=== PATIENT | male | born 1950 | race Caucasian/White ===

== ENCOUNTER → 2017-01-08 | Outpatient (CLI) | payer MEDICARE ==
[~2017-01-08] MED LIST: /ESCI20TA OR; /PANT40TA PO; AMLO10TA2 PO; AMLO5TAB2 PO; ASPI1TAB PO; ASPI81TA45 OR; ATOR1TAB18 PO; BUME1TAB OR; CALC0.5C PO; CALC0.5C6 PO; CALC600T10 OR; CITA40TA4 PO; CLON-412 PO; DULO20CA OR; FEBU40TA PO; FERR325T PO; FERR325T3 PO; HYDR25TA PO; INSULANT SC; INSUR SC; ISOVUE-370 76% 100ML VIAL (Q9967) As Ordered ONE; Insulin Pump SQ; LIDO5DIS36 TD; LISI10TA4 OR; MIRT45TA OR; MIRT45TA PO; NUCY100T11 PO; PANT40TA2 PO; PLAV75TA2 OR; PLAV75TA38 PO; POTA10CA PO; SPIR25TA2 PO; TORS20TA2 PO; VICO5TAB PO; VITAMIN D50000 UNT OR; [UNRECOGNIZED DRUG - OTHER] PO; iron PO; lantus SQ
--- NOTE | 2017-01-08 18:38 | REP ---
CT ANGIOGRAM ABDOMEN AND PELVIS, AND BILATERAL LOWER EXTREMITIES: CT angiogram performed of the abdomen and pelvis and bilateral lower extremities following the intravenous administration of 100 mL of Isovue-370. Sagittal, coronal and MIP reconstruction images are performed. Visualized lung bases demonstrate interstitial fibrotic changes. Liver, spleen, adrenals and pancreas appear unremarkable. There appears to be atrophy of the left kidney, particularly in the upper pole with focal cortical thinning. There is no adenopathy. There is no free air or free fluid. No bowel wall thickening is seen. There is sigmoid diverticulosis. The appendix is normal. There is a small hiatal hernia. The abdominal aorta demonstrates moderate atherosclerotic plaquing with mild to moderate diffuse narrowing in the infrarenal portion. There is mild narrowing of the origin of the celiac artery as well as of the superior and inferior mesenteric arteries. Renal arteries demonstrate mild narrowing without significant stenosis. Right common iliac artery demonstrates moderate diffuse plaquing and narrowing. There is a bypass graft connecting with the distal right common iliac artery. The right external iliac artery is occluded. There is moderate to severe narrowing of the proximal right internal iliac artery. The bypass graft is widely patent up to the level of the common femoral artery, but there appears to be moderate to severe focal stenosis at that location as seen on axial images #132. No flow is seen in the [place] right superficial femoral artery. The graft is widely patent as it courses through the thigh with mild narrowing at its distal end, at the anastomosis with the right popliteal artery. The [place] right popliteal artery demonstrates moderate diffuse narrowing. The trifurcation vessels are patent. There is relatively moderate narrowing of the proximal peroneal and posterior tibial arteries. All three of the calf arteries taper as they course distally in the calf, but all three do appear to enter the right foot. On the left, there is moderate diffuse narrowing of the common iliac artery. There is the severe stenosis of the left internal iliac artery. The left external iliac artery demonstrates circumferential calcific plaque with diffuse severe narrowing. The left common femoral artery demonstrates moderately severe narrowing. That vessel demonstrates an anastomosis with a bypass graft which is widely patent coursing through the left thigh soft tissues. The [place] left superficial femoral artery is severely stenotic proximally and becomes occluded in its proximal aspect. Bypass graft demonstrates an anastomosis with the [place] popliteal artery with moderately severe stenosis at the anastomosis. The left popliteal artery demonstrates moderately severe diffuse narrowing. Trifurcation vessels are patent. There is moderate to severe stenosis of the proximal left anterior tibial artery. That artery does appear to traverse into the foot. The posterior tibial and peroneal arteries taper as they course distally, but also appear to traverse into the left foot. IMPRESSION: Right lower extremity bypass graft originates at the right common iliac artery. There is focal moderate to severe stenosis within the graft in the right inguinal region, on axial image 132. There is mild narrowing at its distal end. Right popliteal artery demonstrates moderate diffuse narrowing. There is three vessel runoff into the right foot. Left external iliac artery demonstrates severe diffuse narrowing as does the visualized left common femoral artery. There is a bypass graft extending from the left common femoral artery to the left popliteal artery. Left popliteal artery demonstrates moderate to severe diffuse narrowing. There is three vessel runoff in the left foot. Signed by Juan Antonio Young MD 01/08/2017 07:53 P
== END ==
LOC: M RAD 07:39
PROVIDERS: ATTEND Surgery Vascular Surgery
DX: I70.512 Atherosclerosis of nonautologous biological bypass graft(s) of the extremities with intermittent claudication, left leg (principal); K44.9 Diaphragmatic hernia without obstruction or gangrene; Z95.5 Presence of coronary angioplasty implant and graft
CPT/HCPCS: 75635; Q9967

== ENCOUNTER 2017-06-15 11:13 | Emergency (ER) | payer MEDICARE ==
[~2017-06-15] VITALS: Ht 165.1 cm; Wt 72.2 kg
[~2017-06-15 11:13] MED LIST changes: -ATOR1TAB18 PO; +ATOR80TA59 PO; +FERR1TAB8 PO; -FERR325T PO; -ISOVUE-370 76% 100ML VIAL (Q9967) As Ordered ONE; -LIDO5DIS36 TD; +LIDO5DIS41 TD; +PLAV1TAB2 PO; -PLAV75TA38 PO
[2017-06-15] MEDS ORDERED: PLAV1TAB2 (11:34)
[2017-06-15] MEDS ORDERED: ONDANSETRON 4MG/2ML VIAL (J2405) IV ONE (12:30)
[2017-06-15] MEDS ORDERED: MORPHINE 2 MG/ML 1ML SYRINGE IV PRN (12:30)
[2017-06-15 13:03] LABS: BASO % 0.3 % (0.0-1.0); EOS % 0.2 % (0.0-3.0); IMMATURE GRANULOCYTE % 0.6 % (0-0); LYMPH # 0.7 10^3/uL (1.5-4.5); LYMPH % 5.5 % (24.0-44.0); MEAN CORPUSCULAR HEMOGLOBIN 35.2 pg (27.0-33.0); MEAN CORPUSCULAR HGB CONC 34.5 g/dl (32.0-36.5); MEAN CORPUSCULAR VOLUME 101.9 fl (80.0-96.0); MONO # 0.7 10^3/uL (0.0-0.8); MONO % 5.7 % (0.0-5.0); NEUTROPHILS # 10.7 10^3/uL (1.8-7.7); NEUTROPHILS % 87.7 % (36.0-66.0); PLATELET COUNT, AUTOMATED 342 10^3/uL (150-450); RED CELL DISTRIBUTION WIDTH 14.1 % (11.5-14.5); WHITE BLOOD COUNT 12.2 10^3/uL (4.0-10.0)
[2017-06-15 13:09] LABS: ADD MANUAL DIFFER NO; DIFF SLIDE NUMBER 147
[2017-06-15 13:23] LABS: INR 0.99
[2017-06-15 13:34] LABS: ALBUMIN 2.6 GM/DL (3.2-5.2); ALBUMIN/GLOBULIN RATIO 0.62 (1.00-1.93); ALKALINE PHOSPHATASE 73 U/L (45-117); ALT/SGPT 29 U/L (12-78); AMYLASE 59 U/L (25-115); ANION GAP 9 MEQ/L (8-16); AST/SGOT 23 U/L (15-37); BILIRUBIN,DIRECT < 0.1 MG/DL (0.0-0.2); BILIRUBIN,TOTAL 0.3 MG/DL (0.2-1.0); BLOOD UREA NITROGEN 36 MG/DL (7-18); CALCIUM LEVEL 7.1 MG/DL (8.8-10.2); CARBON DIOXIDE LEVEL 26 MEQ/L (21-32); CHLORIDE LEVEL 103 MEQ/L (98-107); GLOMERULAR FILTRATION RATE 14.4 (>49); GLUCOSE, FASTING 153 MG/DL (80-110); POTASSIUM SERUM 3.3 MEQ/L (3.5-5.1); SODIUM LEVEL 138 MEQ/L (136-145); TOTAL PROTEIN 6.8 GM/DL (6.4-8.2)
[2017-06-15 13:44] VITALS: BP 181/63
[2017-06-15] MEDS ORDERED: HYDR-3713 PO (13:58)
--- NOTE | 2017-06-16 11:39 | REP ---
REASON: Right flank pain. PRIORS: None. Prior CTA of the abdomen was reviewed. There are chronic changes in the lung bases status quo. Multiple calcifications are seen adjacent to multiple biliary radicles. Choledocholithiasis cannot be ruled out. There are no choleliths. Renovascular calcifications are seen bilaterally. Calcific atherosclerotic sclerotic change is seen in the abdominal aorta. Limited evaluation of the bowel loops and mesenteries show no gross abnormalities. Limited evaluation of the solid intra-abdominal organs show no gross abnormalities. Limited evaluation of the pancreas and adrenal glands show no gross abnormalities. No free fluid or free air is seen in the abdomen or pelvis. The osseous structures are within normal limits. IMPRESSION: Calcifications as described above. There is no obstructive uropathy. There are renovascular calcifications and there is calcific atherosclerotic change seen in the abdominal aorta. Other findings as described above. Signed by Russ Ashton DO 06/16/2017 09:44 A
--- NOTE | 2017-06-16 12:37 | ECGEPIP ---
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
== END 2017-06-15 14:06 | disposition home or self-care (01) ==
LOC: M ED 11:13
DX: K59.00 Constipation, unspecified (principal); E11.9 Type 2 diabetes mellitus without complications; I11.0 Hypertensive heart disease with heart failure; M54.9 Dorsalgia, unspecified; I50.9 Heart failure, unspecified; E78.00 Pure hypercholesterolemia, unspecified; G47.30 Sleep apnea, unspecified; E05.90 Thyrotoxicosis, unspecified without thyrotoxic crisis or storm; F41.9 Anxiety disorder, unspecified; F33.9 Major depressive disorder, recurrent, unspecified; Z79.899 Other long term (current) drug therapy; Z79.82 Long term (current) use of aspirin; Z79.4 Long term (current) use of insulin; Z88.1 Allergy status to other antibiotic agents; Z88.2 Allergy status to sulfonamides; Z88.8 Allergy status to other drugs, medicaments and biological substances; Z87.891 Personal history of nicotine dependence
CPT/HCPCS: 36415; 74176; 80048; 80076; 81001; 82150; 82550; 82553; 83605; 83690; 84484; 85025; 85610; 85730; 93005; 96374; 96375; 99284; J2405

== ENCOUNTER → 2017-07-18 | Outpatient (CLI) | payer MEDICARE ==
[~2017-07-18] MED LIST changes: +HYDR-3713 PO; +PLAV1TAB2
--- NOTE | 2017-07-18 10:34 | REP ---
LUMBAR SPINE, FIVE VIEWS: HISTORY: Spinal stenosis. There is no acute fracture or subluxation. There are old compression fractures of the T11 through L1 vertebral bodies with minimal height loss. The intervertebral discs are decreased in height consistent with disc degeneration. Osteophytes are present throughout the lumbar spine. The facet joints are normal in appearance. IMPRESSION: Degenerative change as described above. Signed by Amadou Mcmanus MD 07/18/2017 10:35 A
== END ==
LOC: M SMT 09:25
PROVIDERS: ATTEND Nurse Practitioner Adult Health
DX: M48.061 Spinal stenosis, lumbar region without neurogenic claudication (principal); M51.35 Other intervertebral disc degeneration, thoracolumbar region; M25.78 Osteophyte, vertebrae

== ENCOUNTER 2017-09-14 15:29 | Outpatient (CLI) | payer MEDICARE ==
[2017-09-14] MEDS: cloNIDine 0.1 MG TAB PO (18:52)
[2017-09-14] MEDS: **hydrALAZINE HCL** 25 MG TAB PO (18:52)
[2017-09-14 20:34] LABS: IMMEDIATE SPIN CROSSMATCH 1 2
== END 2017-09-15 01:00 | disposition home or self-care (01) ==
LOC: M OPCLI4PV 09-15 01:00 → M MSPAV 15:48
DX: D62 Acute posthemorrhagic anemia (principal)
CPT/HCPCS: 36430

== ENCOUNTER 2017-10-26 19:13 | Inpatient (IN) | payer MEDICARE ==
[2017-10-26] MEDS: **hydrALAZINE HCL** 25 MG TAB PO (21:00)
[2017-10-26 22:56] LABS: INFLUENZA A AMPLIFICATION NEGATIVE (NEGATIVE); INFLUENZA B AMPLIFICATION NEGATIVE (NEGATIVE)
[2017-10-27 00:20] LABS: BASO % 0.7 % (0.0-1.0); EOS # 0.1 10^3/uL (0.0-0.50); EOS % 0.9 % (0.0-3.0); HEMATOCRIT 35.2 % (42.0-52.0); HEMOGLOBIN 12.1 g/dl (14.0-18.0); IMMATURE GRANULOCYTE % 0.5 % (0-3.0); LYMPH # 0.8 10^3/uL (1.5-4.5); LYMPH % 12.8 % (24.0-44.0); MEAN CORPUSCULAR HGB CONC 34.4 g/dl (32.0-36.5); MEAN CORPUSCULAR VOLUME 98.9 fl (80.0-96.0); MONO # 0.7 10^3/uL (0.0-0.8); MONO % 12.5 % (0.0-5.0); NEUTROPHILS # 4.3 10^3/uL (1.8-7.7); NEUTROPHILS % 72.6 % (36.0-66.0); PLATELET COUNT, AUTOMATED 290 10^3/uL (150-450); RED BLOOD COUNT 3.56 10^6/uL (4.30-6.10); RED CELL DISTRIBUTION WIDTH 16.8 % (11.5-14.5); WHITE BLOOD COUNT 5.9 10^3/uL (4.0-10.0)
[2017-10-27] MEDS: IMIPENEM/CILASTATIN 500 MG in D5W MINI-BAG PLUS 100 ML IV (00:37)
[2017-10-27] MEDS: ACETAMINOPHEN 325 MG TAB PO (01:04)
[2017-10-27 01:12] LABS: LACTIC ACID SEPSIS PROTOCOL 1.4 MMOL/L (0.4-2.0)
[2017-10-27 01:24] LABS: ANION GAP 16 MEQ/L (8-16); BLOOD UREA NITROGEN 40 MG/DL (7-18); CALCIUM LEVEL 8.2 MG/DL (8.8-10.2); CARBON DIOXIDE LEVEL 26 MEQ/L (21-32); CHLORIDE LEVEL 102 MEQ/L (98-107); CREATININE FOR GFR 4.58 MG/DL (0.70-1.30); GLOMERULAR FILTRATION RATE 13.7 (>49); GLUCOSE, FASTING 230 MG/DL (70-100); SODIUM LEVEL 144 MEQ/L (136-145)
[2017-10-27 01:56] LABS: RSV AMPLIFICATION POSITIVE (NEGATIVE)
[2017-10-27] MEDS: VANCOMYCIN HCL 1,000 MG, VIAL MATE ADAPTER 1 EACH in D5W 250 ML IV (02:28)
[2017-10-27] MEDS ORDERED: VANCOMYCIN HCL 1,000 MG, VIAL MATE ADAPTER 1 EACH in D5W 250 ML IV (02:45)
[2017-10-27] MEDS: MIRTAZAPINE 15 MG TAB PO ×2 (03:49→22:17)
[2017-10-27] MEDS: cloNIDine 0.1 MG TAB PO ×3 (03:50→22:16)
[2017-10-27] MEDS ORDERED: GLUCAGON FOR INJ 1 MG VIAL (J1610) SC (05:30)
[2017-10-27] MEDS ORDERED: GLUCOSE 4 GM CHEW TABLET PO (05:30)
[2017-10-27] MEDS ORDERED: DEXTROSE 50% 50 ML SYRINGE IV (05:30)
[2017-10-27 06:52] LABS: HEMATOCRIT 33.1 % (42.0-52.0); HEMOGLOBIN 11.4 g/dl (14.0-18.0); MEAN CORPUSCULAR HEMOGLOBIN 33.7 pg (27.0-33.0); MEAN CORPUSCULAR HGB CONC 34.4 g/dl (32.0-36.5); MEAN CORPUSCULAR VOLUME 97.9 fl (80.0-96.0); PLATELET COUNT, AUTOMATED 257 10^3/uL (150-450); RED BLOOD COUNT 3.38 10^6/uL (4.30-6.10); RED CELL DISTRIBUTION WIDTH 16.8 % (11.5-14.5); WHITE BLOOD COUNT 5.3 10^3/uL (4.0-10.0)
[2017-10-27 07:17] LABS: ALBUMIN 2.9 GM/DL (3.2-5.2); ANION GAP 13 MEQ/L (8-16); BLOOD UREA NITROGEN 47 MG/DL (7-18); CALCIUM LEVEL 7.8 MG/DL (8.8-10.2); CARBON DIOXIDE LEVEL 26 MEQ/L (21-32); CHLORIDE LEVEL 96 MEQ/L (98-107); GLOMERULAR FILTRATION RATE 11.9 (>49); GLUCOSE, FASTING 308 MG/DL (70-100); PHOSPHORUS LEVEL 4.6 MG/DL (2.5-4.9); POTASSIUM SERUM 3.8 MEQ/L (3.5-5.1); SODIUM LEVEL 135 MEQ/L (136-145); VANCOMYCIN RANDOM 20.4 UG/ML
[2017-10-27] MEDS: ALBUTEROL SULFATE 2.5 MG/0.5 ML INH NEB SOLN NEB ×3 (08:00→20:18)
[2017-10-27] MEDS ORDERED: LEVEMIR (INSULIN DETEMIR) 1 UNITS/0.01ML SC (09:00)
[2017-10-27] MEDS: SPIRONOLACTONE 25 MG TAB PO ×2 (09:56→17:51)
[2017-10-27] MEDS: PANTOPRAZOLE 40MG TAB (PROTONIX) PO (09:57)
[2017-10-27] MEDS: ASPIRIN 81 MG ENTERIC TAB PO (09:57)
[2017-10-27] MEDS: **hydrALAZINE HCL** 25 MG TAB PO ×3 (09:57→22:16)
[2017-10-27] MEDS: HEPARIN SOD (PORCINE) 5000 UNITS/ML VIAL SC ×3 (09:57→22:19)
[2017-10-27] MEDS: CitaloPRAM (CeleXA) 20 MG TAB PO (09:57)
[2017-10-27] MEDS: CLOPIDOGREL 75 MG TAB PO (09:57)
[2017-10-27 12:12] LABS: BEDSIDE GLUCOSE 476 MG/DL (80-115)
[2017-10-27] MEDS: ATORVASTATIN 20 MG TAB PO (13:46)
[2017-10-27] MEDS ORDERED: IMIPENEM/CILASTATIN 500 MG in D5W MINI-BAG PLUS 100 ML IV (14:00)
[2017-10-27] MEDS ORDERED: VANCOMYCIN HCL 15 MG in IV FLUID PLACE HOLDER 1 EA IV (14:00)
[2017-10-27 16:04] LABS: BEDSIDE GLUCOSE 594 MG/DL (80-115)
[2017-10-27] MEDS ORDERED: HumaLOG INSULIN (NovoLOG) PER UNIT SC ×2 (17:30→21:00)
[2017-10-27] MEDS: BUDESONIDE 0.5 MG/2 ML INHALATION SUSPENSION INH (20:18)
[2017-10-27 21:16] LABS: BEDSIDE GLUCOSE 484 MG/DL (80-115)
[2017-10-27] MEDS: ACETAMINOPHEN TAB 650MG DOSE (2X325MG) PO (23:59)
[2017-10-27] MEDS: cloNIDine 0.2 MG TAB PO (23:59)
[2017-10-28] MEDS: ALBUTEROL SULFATE 2.5 MG/0.5 ML INH NEB SOLN NEB ×4 (00:19→20:36)
[2017-10-28] MEDS: HEPARIN SOD (PORCINE) 5000 UNITS/ML VIAL SC ×3 (06:24→21:18)
[2017-10-28 06:35] LABS: HEMATOCRIT 29.6 % (42.0-52.0); HEMOGLOBIN 10.4 g/dl (14.0-18.0); MEAN CORPUSCULAR HEMOGLOBIN 34.2 pg (27.0-33.0); MEAN CORPUSCULAR HGB CONC 35.1 g/dl (32.0-36.5); MEAN CORPUSCULAR VOLUME 97.4 fl (80.0-96.0); PLATELET COUNT, AUTOMATED 253 10^3/uL (150-450); RED BLOOD COUNT 3.04 10^6/uL (4.30-6.10); RED CELL DISTRIBUTION WIDTH 16.5 % (11.5-14.5); WHITE BLOOD COUNT 6.2 10^3/uL (4.0-10.0)
[2017-10-28 07:05] LABS: ALBUMIN 2.8 GM/DL (3.2-5.2); ANION GAP 14 MEQ/L (8-16); BLOOD UREA NITROGEN 72 MG/DL (7-18); CALCIUM LEVEL 7.9 MG/DL (8.8-10.2); CARBON DIOXIDE LEVEL 24 MEQ/L (21-32); CHLORIDE LEVEL 97 MEQ/L (98-107); CREATININE FOR GFR 6.71 MG/DL (0.70-1.30); GLOMERULAR FILTRATION RATE 8.8 (>49); GLUCOSE, FASTING 160 MG/DL (70-100); PHOSPHORUS LEVEL 5.2 MG/DL (2.5-4.9); POTASSIUM SERUM 3.5 MEQ/L (3.5-5.1); SODIUM LEVEL 135 MEQ/L (136-145)
[2017-10-28] MEDS: BUDESONIDE 0.5 MG/2 ML INHALATION SUSPENSION INH ×2 (07:48→20:36)
[2017-10-28 09:10] LABS: BEDSIDE GLUCOSE 134 MG/DL (80-115)
[2017-10-28] MEDS: SPIRONOLACTONE 25 MG TAB PO ×2 (10:14→17:23)
[2017-10-28] MEDS: PANTOPRAZOLE 40MG TAB (PROTONIX) PO (10:14)
[2017-10-28] MEDS: ASPIRIN 81 MG ENTERIC TAB PO (10:14)
[2017-10-28] MEDS: cloNIDine 0.1 MG TAB PO ×2 (10:14→21:17)
[2017-10-28] MEDS: CLOPIDOGREL 75 MG TAB PO (10:14)
[2017-10-28] MEDS: CitaloPRAM (CeleXA) 20 MG TAB PO (10:15)
[2017-10-28] MEDS: **hydrALAZINE HCL** 25 MG TAB PO ×3 (10:18→21:17)
[2017-10-28] MEDS: ATORVASTATIN 20 MG TAB PO (14:00)
[2017-10-28] MEDS: POTASSIUM CHLORIDE 10 MEQ SR TABLET PO (17:57)
[2017-10-28] MEDS: MIRTAZAPINE 15 MG TAB PO (21:17)
[2017-10-29] MEDS: ALBUTEROL SULFATE 2.5 MG/0.5 ML INH NEB SOLN NEB ×3 (01:58→14:05)
[2017-10-29] MEDS ORDERED: IPRATROPIUM 0.5MG/ALBUTEROL 2.5MG INH SOL UD 3ML (DUONEB)(J7620) NEB (03:30)
[2017-10-29 06:48] LABS: HEMATOCRIT 30.4 % (42.0-52.0); HEMOGLOBIN 10.6 g/dl (14.0-18.0); MEAN CORPUSCULAR HGB CONC 34.9 g/dl (32.0-36.5); MEAN CORPUSCULAR VOLUME 97.4 fl (80.0-96.0); PLATELET COUNT, AUTOMATED 276 10^3/uL (150-450); RED BLOOD COUNT 3.12 10^6/uL (4.30-6.10); RED CELL DISTRIBUTION WIDTH 16.6 % (11.5-14.5); WHITE BLOOD COUNT 8.3 10^3/uL (4.0-10.0)
[2017-10-29] MEDS: CitaloPRAM (CeleXA) 20 MG TAB PO (06:56)
[2017-10-29] MEDS: HEPARIN SOD (PORCINE) 5000 UNITS/ML VIAL SC ×3 (06:56→20:45)
[2017-10-29] MEDS: **hydrALAZINE HCL** 25 MG TAB PO ×3 (06:57→20:44)
[2017-10-29] MEDS: SPIRONOLACTONE 25 MG TAB PO ×2 (06:57→16:08)
[2017-10-29] MEDS: PANTOPRAZOLE 40MG TAB (PROTONIX) PO (06:57)
[2017-10-29] MEDS: ASPIRIN 81 MG ENTERIC TAB PO (06:57)
[2017-10-29] MEDS: cloNIDine 0.1 MG TAB PO ×2 (06:57→20:44)
[2017-10-29] MEDS: CLOPIDOGREL 75 MG TAB PO (06:58)
[2017-10-29 07:03] LABS: ANION GAP 13 MEQ/L (8-16); BLOOD UREA NITROGEN 87 MG/DL (7-18); CALCIUM LEVEL 7.9 MG/DL (8.8-10.2); CARBON DIOXIDE LEVEL 23 MEQ/L (21-32); CHLORIDE LEVEL 98 MEQ/L (98-107); GLOMERULAR FILTRATION RATE 7.7 (>49); GLUCOSE, FASTING 119 MG/DL (70-100); PHOSPHORUS LEVEL 4.4 MG/DL (2.5-4.9); POTASSIUM SERUM 4.3 MEQ/L (3.5-5.1); SODIUM LEVEL 134 MEQ/L (136-145)
[2017-10-29] MEDS: BUDESONIDE 0.5 MG/2 ML INHALATION SUSPENSION INH ×3 (08:00→19:46)
[2017-10-29 08:57] LABS: BEDSIDE GLUCOSE 238 MG/DL (80-115)
[2017-10-29 08:57] LABS: BEDSIDE GLUCOSE 352 MG/DL (80-115)
[2017-10-29 09:00] LABS: BEDSIDE GLUCOSE 282 MG/DL (80-115)
[2017-10-29] MEDS: HEPARIN 1,000 UNITS/ML 10ML VIAL (FOR RADIOLOGY& DIALYSIS ONLY) IV (11:00)
[2017-10-29] MEDS: LIDOCAINE 1% SDV 5 ML VIAL SQ (11:00)
[2017-10-29] MEDS: ATORVASTATIN 20 MG TAB PO (13:24)
[2017-10-29] MEDS: ACETAMINOPHEN TAB 650MG DOSE (2X325MG) PO ×2 (16:09→20:43)
[2017-10-29 17:05] LABS: BEDSIDE GLUCOSE 101 MG/DL (80-115)
[2017-10-29] MEDS: IPRATROPIUM 0.5MG/ALBUTEROL 2.5MG INH SOL UD 3ML (DUONEB)(J7620) NEB ×2 (17:41→19:46)
[2017-10-29 17:47] LABS: BEDSIDE GLUCOSE 240 MG/DL (80-115)
[2017-10-29] MEDS: AZITHROMYCIN INJ 500 MG, VIAL MATE ADAPTER 1 EACH in D5W 250 ML IV (18:02)
[2017-10-29 18:21] LABS: ERYTHROCYTE SEDIMENTATION RATE 124 mm/hr (0-20)
[2017-10-29 18:23] LABS: CK-MB VALUE MASS 2.8 NG/ML (0.0-3.6); CPK CREATINE PHOSPHOKINASE 311 U/L (39-308); TROPONIN I 0.02 NG/ML (< 0.10)
[2017-10-29 18:24] LABS: LACTIC ACID SEPSIS PROTOCOL 1.6 MMOL/L (0.4-2.0)
[2017-10-29] MEDS: MIRTAZAPINE 15 MG TAB PO (20:44)
[2017-10-29 21:00] LABS: BEDSIDE GLUCOSE 301 MG/DL (80-115)
[2017-10-30] MEDS: IPRATROPIUM 0.5MG/ALBUTEROL 2.5MG INH SOL UD 3ML (DUONEB)(J7620) NEB ×7 (00:25→23:24)
[2017-10-30 04:45] LABS: HEMATOCRIT 30.2 % (42.0-52.0); HEMOGLOBIN 10.6 g/dl (14.0-18.0); MEAN CORPUSCULAR HEMOGLOBIN 34.6 pg (27.0-33.0); MEAN CORPUSCULAR HGB CONC 35.1 g/dl (32.0-36.5); MEAN CORPUSCULAR VOLUME 98.7 fl (80.0-96.0); PLATELET COUNT, AUTOMATED 250 10^3/uL (150-450); RED BLOOD COUNT 3.06 10^6/uL (4.30-6.10); RED CELL DISTRIBUTION WIDTH 17.2 % (11.5-14.5); WHITE BLOOD COUNT 12.1 10^3/uL (4.0-10.0)
[2017-10-30] MEDS: ACETAMINOPHEN TAB 650MG DOSE (2X325MG) PO (04:52)
[2017-10-30 05:13] LABS: ALBUMIN 2.7 GM/DL (3.2-5.2); ANION GAP 12 MEQ/L (8-16); BLOOD UREA NITROGEN 60 MG/DL (7-18); CALCIUM LEVEL 8.4 MG/DL (8.8-10.2); CARBON DIOXIDE LEVEL 23 MEQ/L (21-32); CHLORIDE LEVEL 94 MEQ/L (98-107); CREATININE FOR GFR 6.67 MG/DL (0.70-1.30); GLOMERULAR FILTRATION RATE 8.9 (>49); GLUCOSE, FASTING 302 MG/DL (70-100); POTASSIUM SERUM 4.5 MEQ/L (3.5-5.1); SODIUM LEVEL 129 MEQ/L (136-145)
[2017-10-30] MEDS: HEPARIN SOD (PORCINE) 5000 UNITS/ML VIAL SC ×3 (05:29→20:59)
[2017-10-30] MEDS: BUDESONIDE 0.5 MG/2 ML INHALATION SUSPENSION INH ×2 (08:21→20:44)
[2017-10-30 08:22] LABS: BEDSIDE GLUCOSE 334 MG/DL (80-115)
[2017-10-30] MEDS: SPIRONOLACTONE 25 MG TAB PO ×2 (09:44→17:26)
[2017-10-30] MEDS: CitaloPRAM (CeleXA) 20 MG TAB PO (09:44)
[2017-10-30] MEDS: CLOPIDOGREL 75 MG TAB PO (09:44)
[2017-10-30] MEDS: PANTOPRAZOLE 40MG TAB (PROTONIX) PO (09:44)
[2017-10-30] MEDS: ASPIRIN 81 MG ENTERIC TAB PO (09:44)
[2017-10-30] MEDS: cloNIDine 0.1 MG TAB PO ×2 (09:45→20:57)
[2017-10-30] MEDS: **hydrALAZINE HCL** 25 MG TAB PO ×3 (09:45→20:57)
[2017-10-30] MEDS: ATORVASTATIN 20 MG TAB PO (12:25)
[2017-10-30 12:36] LABS: BEDSIDE GLUCOSE 347 MG/DL (80-115)
[2017-10-30] MEDS: CEFTRIAXONE SOD 2 GM in APPROPRIATE DILUENT 1 EA IV (15:31)
[2017-10-30 16:49] LABS: BEDSIDE GLUCOSE 324 MG/DL (80-115)
[2017-10-30] MEDS: AZITHROMYCIN INJ 500 MG, VIAL MATE ADAPTER 1 EACH in D5W 250 ML IV (17:27)
[2017-10-30] MEDS: MIRTAZAPINE 15 MG TAB PO (20:56)
[2017-10-31 00:19] LABS: BEDSIDE GLUCOSE 403 MG/DL (80-115)
[2017-10-31] MEDS: IPRATROPIUM 0.5MG/ALBUTEROL 2.5MG INH SOL UD 3ML (DUONEB)(J7620) NEB ×5 (03:52→20:14)
[2017-10-31] MEDS: HEPARIN SOD (PORCINE) 5000 UNITS/ML VIAL SC ×3 (05:36→20:43)
[2017-10-31 05:56] LABS: HEMATOCRIT 26.9 % (42.0-52.0); HEMOGLOBIN 9.3 g/dl (14.0-18.0); MEAN CORPUSCULAR HEMOGLOBIN 34.2 pg (27.0-33.0); MEAN CORPUSCULAR HGB CONC 34.6 g/dl (32.0-36.5); MEAN CORPUSCULAR VOLUME 98.9 fl (80.0-96.0); PLATELET COUNT, AUTOMATED 279 10^3/uL (150-450); RED BLOOD COUNT 2.72 10^6/uL (4.30-6.10); RED CELL DISTRIBUTION WIDTH 16.9 % (11.5-14.5); WHITE BLOOD COUNT 9.4 10^3/uL (4.0-10.0)
[2017-10-31 06:08] LABS: ALBUMIN 2.5 GM/DL (3.2-5.2); ANION GAP 16 MEQ/L (8-16); BLOOD UREA NITROGEN 77 MG/DL (7-18); CALCIUM LEVEL 8.1 MG/DL (8.8-10.2); CARBON DIOXIDE LEVEL 21 MEQ/L (21-32); CHLORIDE LEVEL 92 MEQ/L (98-107); GLUCOSE, FASTING 261 MG/DL (70-100); PHOSPHORUS LEVEL 6.4 MG/DL (2.5-4.9); POTASSIUM SERUM 3.8 MEQ/L (3.5-5.1); SODIUM LEVEL 129 MEQ/L (136-145)
[2017-10-31 06:11] LABS: CREATININE FOR GFR 8.22 MG/DL (0.70-1.30)
[2017-10-31] MEDS ORDERED: VANCOMYCIN HCL 1,000 MG, VIAL MATE ADAPTER 1 EACH in D5W 250 ML IV (07:00)
[2017-10-31] MEDS: SPIRONOLACTONE 25 MG TAB PO ×2 (07:42→16:41)
[2017-10-31] MEDS: cloNIDine 0.1 MG TAB PO ×2 (07:42→20:41)
[2017-10-31] MEDS: PANTOPRAZOLE 40MG TAB (PROTONIX) PO (07:42)
[2017-10-31] MEDS: ASPIRIN 81 MG ENTERIC TAB PO (07:42)
[2017-10-31] MEDS: **hydrALAZINE HCL** 25 MG TAB PO ×3 (07:43→20:43)
[2017-10-31] MEDS: CLOPIDOGREL 75 MG TAB PO (07:43)
[2017-10-31] MEDS: CitaloPRAM (CeleXA) 20 MG TAB PO (07:43)
[2017-10-31] MEDS: BUDESONIDE 0.5 MG/2 ML INHALATION SUSPENSION INH ×2 (07:49→20:14)
[2017-10-31 08:30] LABS: ERYTHROCYTE SEDIMENTATION RATE 129 mm/hr (0-20)
[2017-10-31] MEDS: HEPARIN 1,000 UNITS/ML 10ML VIAL (FOR RADIOLOGY& DIALYSIS ONLY) IV (11:45)
[2017-10-31] MEDS: LIDOCAINE 1% SDV 5 ML VIAL SQ (11:45)
[2017-10-31] MEDS ORDERED: DARBEPOETIN 100 MCG/0.5 ML *DIALYSIS* SYRINGE (J0882) IV (12:15)
[2017-10-31 13:37] LABS: BEDSIDE GLUCOSE 120 MG/DL (80-115)
[2017-10-31] MEDS: CEFEPIME HCL 1 GM in D5W MINI-BAG PLUS 50 ML IV (14:00)
[2017-10-31] MEDS: ATORVASTATIN 20 MG TAB PO (14:01)
[2017-10-31] MEDS: CHECK TO SEE IF PATIENT IS RECEIVING DIALYSIS TODAY AND REFER TO THE VANCOMYCIN ORDER XX (16:41)
[2017-10-31] MEDS: VANCOMYCIN HCL 1,000 MG, VIAL MATE ADAPTER 1 EACH in D5W 250 ML IV (16:41)
[2017-10-31 16:59] LABS: BEDSIDE GLUCOSE 386 MG/DL (80-115)
[2017-10-31] MEDS: MIRTAZAPINE 15 MG TAB PO (20:41)
[2017-10-31 22:39] LABS: BEDSIDE GLUCOSE 328 MG/DL (80-115)
[2017-11-01] MEDS: IPRATROPIUM 0.5MG/ALBUTEROL 2.5MG INH SOL UD 3ML (DUONEB)(J7620) NEB ×8 (00:36→23:40)
[2017-11-01] MEDS: HEPARIN SOD (PORCINE) 5000 UNITS/ML VIAL SC ×3 (05:49→21:22)
[2017-11-01 07:08] LABS: BASO % 0.4 % (0.0-1.0); EOS # 0.1 10^3/uL (0.0-0.50); EOS % 1.7 % (0.0-3.0); HEMATOCRIT 26.1 % (42.0-52.0); HEMOGLOBIN 8.9 g/dl (14.0-18.0); IMMATURE GRANULOCYTE % 1.3 % (0-3.0); LYMPH # 0.6 10^3/uL (1.5-4.5); LYMPH % 8.3 % (24.0-44.0); MEAN CORPUSCULAR HGB CONC 34.1 g/dl (32.0-36.5); MEAN CORPUSCULAR VOLUME 99.6 fl (80.0-96.0); MONO # 0.9 10^3/uL (0.0-0.8); MONO % 12.4 % (0.0-5.0); NEUTROPHILS # 5.3 10^3/uL (1.8-7.7); NEUTROPHILS % 75.9 % (36.0-66.0); PLATELET COUNT, AUTOMATED 292 10^3/uL (150-450); RED BLOOD COUNT 2.62 10^6/uL (4.30-6.10); RED CELL DISTRIBUTION WIDTH 16.7 % (11.5-14.5)
[2017-11-01 07:25] LABS: ESTIMATED AVERAGE GLUCOSE 194 MG/DL (60-110); HEMOGLOBIN A1c 8.4 %
[2017-11-01] MEDS: BUDESONIDE 0.5 MG/2 ML INHALATION SUSPENSION INH ×2 (07:30→19:33)
[2017-11-01 07:34] LABS: ANION GAP 14 MEQ/L (8-16); BLOOD UREA NITROGEN 41 MG/DL (7-18); CALCIUM LEVEL 8.5 MG/DL (8.8-10.2); CARBON DIOXIDE LEVEL 24 MEQ/L (21-32); CHLORIDE LEVEL 96 MEQ/L (98-107); CREATININE FOR GFR 5.52 MG/DL (0.70-1.30); GLOMERULAR FILTRATION RATE 11.1 (>49); GLUCOSE, FASTING 94 MG/DL (70-100); POTASSIUM SERUM 3.6 MEQ/L (3.5-5.1); SODIUM LEVEL 134 MEQ/L (136-145)
[2017-11-01 07:59] LABS: ERYTHROCYTE SEDIMENTATION RATE 126 mm/hr (0-20)
[2017-11-01] MEDS: CitaloPRAM (CeleXA) 20 MG TAB PO (08:21)
[2017-11-01] MEDS: SPIRONOLACTONE 25 MG TAB PO ×2 (08:21→16:33)
[2017-11-01] MEDS: **hydrALAZINE HCL** 25 MG TAB PO ×3 (08:22→21:20)
[2017-11-01] MEDS: CLOPIDOGREL 75 MG TAB PO (08:22)
[2017-11-01] MEDS: ASPIRIN 81 MG ENTERIC TAB PO (08:22)
[2017-11-01] MEDS: PANTOPRAZOLE 40MG TAB (PROTONIX) PO (08:22)
[2017-11-01] MEDS: cloNIDine 0.1 MG TAB PO ×2 (08:23→21:21)
[2017-11-01] MEDS: CEFTRIAXONE SOD 2 GM in APPROPRIATE DILUENT 1 EA IV (09:00)
[2017-11-01 11:34] LABS: BEDSIDE GLUCOSE 167 MG/DL (80-115)
[2017-11-01] MEDS ORDERED: CEFEPIME HCL 0.5 GM in D5W MINI-BAG PLUS 50 ML IV (13:00)
[2017-11-01] MEDS: ATORVASTATIN 20 MG TAB PO (14:06)
[2017-11-01] MEDS: CHECK TO SEE IF PATIENT IS RECEIVING DIALYSIS TODAY AND REFER TO THE VANCOMYCIN ORDER XX (15:38)
[2017-11-01 16:50] LABS: BEDSIDE GLUCOSE 240 MG/DL (80-115)
[2017-11-01] MEDS: MIRTAZAPINE 15 MG TAB PO (21:20)
[2017-11-01] MEDS: ACETAMINOPHEN TAB 650MG DOSE (2X325MG) PO (21:22)
[2017-11-02 02:39] LABS: BEDSIDE GLUCOSE 301 MG/DL (80-115)
[2017-11-02] MEDS: IPRATROPIUM 0.5MG/ALBUTEROL 2.5MG INH SOL UD 3ML (DUONEB)(J7620) NEB ×5 (03:28→20:18)
[2017-11-02] MEDS: **hydrALAZINE** 50 MG TAB PO (04:34)
[2017-11-02] MEDS: HEPARIN SOD (PORCINE) 5000 UNITS/ML VIAL SC ×3 (04:35→21:03)
[2017-11-02 05:10] LABS: ANION GAP 19 MEQ/L (8-16); BLOOD UREA NITROGEN 63 MG/DL (7-18); CALCIUM LEVEL 8.1 MG/DL (8.8-10.2); CARBON DIOXIDE LEVEL 21 MEQ/L (21-32); CHLORIDE LEVEL 93 MEQ/L (98-107); CREATININE FOR GFR 7.39 MG/DL (0.70-1.30); GLOMERULAR FILTRATION RATE 7.9 (>49); GLUCOSE, FASTING 157 MG/DL (70-100); POTASSIUM SERUM 3.5 MEQ/L (3.5-5.1); SODIUM LEVEL 133 MEQ/L (136-145)
[2017-11-02 05:52] LABS: BASO % 0.7 % (0.0-1.0); EOS # 0.2 10^3/uL (0.0-0.50); EOS % 3.6 % (0.0-3.0); HEMATOCRIT 26.1 % (42.0-52.0); HEMOGLOBIN 8.9 g/dl (14.0-18.0); IMMATURE GRANULOCYTE % 3.1 % (0-3.0); LYMPH # 0.7 10^3/uL (1.5-4.5); LYMPH % 12.3 % (24.0-44.0); MEAN CORPUSCULAR HEMOGLOBIN 33.8 pg (27.0-33.0); MEAN CORPUSCULAR HGB CONC 34.1 g/dl (32.0-36.5); MEAN CORPUSCULAR VOLUME 99.2 fl (80.0-96.0); MONO # 0.7 10^3/uL (0.0-0.8); MONO % 12.3 % (0.0-5.0); NEUTROPHILS # 3.9 10^3/uL (1.8-7.7); PLATELET COUNT, AUTOMATED 333 10^3/uL (150-450); RED BLOOD COUNT 2.63 10^6/uL (4.30-6.10); RED CELL DISTRIBUTION WIDTH 16.5 % (11.5-14.5); WHITE BLOOD COUNT 5.8 10^3/uL (4.0-10.0)
[2017-11-02] MEDS: cloNIDine 0.1 MG TAB PO ×3 (06:30→21:00)
[2017-11-02] MEDS: **hydrALAZINE** 10 MG TAB PO (06:31)
[2017-11-02 06:56] LABS: BEDSIDE GLUCOSE 151 MG/DL (80-115)
[2017-11-02] MEDS: BUDESONIDE 0.5 MG/2 ML INHALATION SUSPENSION INH ×2 (07:11→20:18)
[2017-11-02] MEDS: ASPIRIN 81 MG ENTERIC TAB PO (07:19)
[2017-11-02] MEDS: CLOPIDOGREL 75 MG TAB PO (07:19)
[2017-11-02] MEDS: CitaloPRAM (CeleXA) 20 MG TAB PO (07:19)
[2017-11-02] MEDS: PANTOPRAZOLE 40MG TAB (PROTONIX) PO (07:20)
[2017-11-02] MEDS: SPIRONOLACTONE 25 MG TAB PO ×2 (07:20→15:47)
[2017-11-02] MEDS: CEFTRIAXONE SOD 2 GM in APPROPRIATE DILUENT 1 EA IV (07:20)
[2017-11-02] MEDS: **hydrALAZINE HCL** 25 MG TAB PO ×3 (09:00→21:00)
[2017-11-02] MEDS: LIDOCAINE 1% SDV 5 ML VIAL SQ (11:15)
[2017-11-02] MEDS: HEPARIN 1,000 UNITS/ML 10ML VIAL (FOR RADIOLOGY& DIALYSIS ONLY) IV (11:15)
[2017-11-02] MEDS: ATORVASTATIN 20 MG TAB PO (13:45)
[2017-11-02] MEDS: ACETAMINOPHEN TAB 650MG DOSE (2X325MG) PO (13:46)
[2017-11-02] MEDS: MIRTAZAPINE 15 MG TAB PO (21:02)
[2017-11-03 03:14] LABS: BEDSIDE GLUCOSE 229 MG/DL (80-115)
[2017-11-03 03:14] LABS: BEDSIDE GLUCOSE 181 MG/DL (80-115)
[2017-11-03 03:16] LABS: BEDSIDE GLUCOSE 99 MG/DL (80-115)
[2017-11-03] MEDS: IPRATROPIUM 0.5MG/ALBUTEROL 2.5MG INH SOL UD 3ML (DUONEB)(J7620) NEB ×7 (04:00→23:46)
[2017-11-03] MEDS: HEPARIN SOD (PORCINE) 5000 UNITS/ML VIAL SC ×3 (05:42→21:42)
[2017-11-03 06:10] LABS: BASO # 0.1 10^3/uL (0.0-0.2); BASO % 1.2 % (0.0-1.0); EOS # 0.2 10^3/uL (0.0-0.50); EOS % 1.6 % (0.0-3.0); HEMATOCRIT 28.8 % (42.0-52.0); HEMOGLOBIN 9.8 g/dl (14.0-18.0); IMMATURE GRANULOCYTE % 4.8 % (0-3.0); LYMPH # 0.9 10^3/uL (1.5-4.5); LYMPH % 8.5 % (24.0-44.0); MEAN CORPUSCULAR HEMOGLOBIN 33.8 pg (27.0-33.0); MEAN CORPUSCULAR VOLUME 99.3 fl (80.0-96.0); MONO # 1.2 10^3/uL (0.0-0.8); MONO % 11.4 % (0.0-5.0); NEUTROPHILS # 7.4 10^3/uL (1.8-7.7); NEUTROPHILS % 72.5 % (36.0-66.0); PLATELET COUNT, AUTOMATED 398 10^3/uL (150-450); RED CELL DISTRIBUTION WIDTH 16.3 % (11.5-14.5); WHITE BLOOD COUNT 10.2 10^3/uL (4.0-10.0)
[2017-11-03 06:32] LABS: ANION GAP 17 MEQ/L (8-16); BLOOD UREA NITROGEN 39 MG/DL (7-18); CALCIUM LEVEL 9.1 MG/DL (8.8-10.2); CARBON DIOXIDE LEVEL 23 MEQ/L (21-32); CHLORIDE LEVEL 95 MEQ/L (98-107); GLOMERULAR FILTRATION RATE 11.1 (>49); GLUCOSE, FASTING 115 MG/DL (70-100); POTASSIUM SERUM 3.9 MEQ/L (3.5-5.1); SODIUM LEVEL 135 MEQ/L (136-145)
[2017-11-03] MEDS: BUDESONIDE 0.5 MG/2 ML INHALATION SUSPENSION INH ×2 (07:17→20:53)
[2017-11-03] MEDS: CEFTRIAXONE SOD 2 GM in APPROPRIATE DILUENT 1 EA IV (10:25)
[2017-11-03] MEDS: PANTOPRAZOLE 40MG TAB (PROTONIX) PO (10:25)
[2017-11-03] MEDS: ASPIRIN 81 MG ENTERIC TAB PO (10:25)
[2017-11-03] MEDS: CLOPIDOGREL 75 MG TAB PO (10:25)
[2017-11-03] MEDS: CitaloPRAM (CeleXA) 20 MG TAB PO (10:25)
[2017-11-03] MEDS: SPIRONOLACTONE 25 MG TAB PO ×2 (10:29→18:11)
[2017-11-03] MEDS: cloNIDine 0.1 MG TAB PO ×2 (10:29→21:42)
[2017-11-03] MEDS: **hydrALAZINE HCL** 25 MG TAB PO ×3 (10:29→21:42)
[2017-11-03] MEDS: ATORVASTATIN 20 MG TAB PO (16:08)
[2017-11-03] MEDS: MIRTAZAPINE 15 MG TAB PO (21:42)
[2017-11-04] MEDS: IPRATROPIUM 0.5MG/ALBUTEROL 2.5MG INH SOL UD 3ML (DUONEB)(J7620) NEB ×3 (02:26→11:06)
[2017-11-04] MEDS: HEPARIN SOD (PORCINE) 5000 UNITS/ML VIAL SC (05:06)
[2017-11-04 06:09] LABS: HEMATOCRIT 28.2 % (42.0-52.0); HEMOGLOBIN 9.7 g/dl (14.0-18.0); MEAN CORPUSCULAR HEMOGLOBIN 34.2 pg (27.0-33.0); MEAN CORPUSCULAR HGB CONC 34.4 g/dl (32.0-36.5); MEAN CORPUSCULAR VOLUME 99.3 fl (80.0-96.0); PLATELET COUNT, AUTOMATED 430 10^3/uL (150-450); RED BLOOD COUNT 2.84 10^6/uL (4.30-6.10); RED CELL DISTRIBUTION WIDTH 16.2 % (11.5-14.5); WHITE BLOOD COUNT 8.2 10^3/uL (4.0-10.0)
[2017-11-04 06:18] LABS: ADD MANUAL DIFFER YES; DIFF SLIDE NUMBER 39; POS COUNT POS FLAG; POSITIVE MORPH POS FLAG
[2017-11-04 06:27] LABS: ANION GAP 18 MEQ/L (8-16); BLOOD UREA NITROGEN 53 MG/DL (7-18); CALCIUM LEVEL 8.6 MG/DL (8.8-10.2); CARBON DIOXIDE LEVEL 21 MEQ/L (21-32); CHLORIDE LEVEL 97 MEQ/L (98-107); CREATININE FOR GFR 7.56 MG/DL (0.70-1.30); GLOMERULAR FILTRATION RATE 7.7 (>49); POTASSIUM SERUM 3.4 MEQ/L (3.5-5.1); SODIUM LEVEL 136 MEQ/L (136-145)
[2017-11-04 06:36] LABS: GLUCOSE, FASTING 35 MG/DL (70-100)
[2017-11-04] MEDS: BUDESONIDE 0.5 MG/2 ML INHALATION SUSPENSION INH (07:05)
[2017-11-04 07:27] LABS: ANISOCYTOSIS 1+; BANDS 3 % (< 11); BASOPHILS 1 % (0-4); EOSINOPHILS 2 % (0-5); LYMPHOCYTES 10 % (16-52); METAMYELOCYTES 1 % (0-0); MONOCYTES 9 % (0-8); MYELOCYTES 2 % (0-0); NEUTROPHILS 72 % (35-75); PLATELET ESTIMATE NORMAL (NORMAL)
[2017-11-04] MEDS: CitaloPRAM (CeleXA) 20 MG TAB PO (08:36)
[2017-11-04] MEDS: CEFTRIAXONE SOD 2 GM in APPROPRIATE DILUENT 1 EA IV (08:36)
[2017-11-04] MEDS: **hydrALAZINE HCL** 25 MG TAB PO (08:36)
[2017-11-04] MEDS: ASPIRIN 81 MG ENTERIC TAB PO (08:36)
[2017-11-04] MEDS: cloNIDine 0.1 MG TAB PO (08:37)
[2017-11-04] MEDS: SPIRONOLACTONE 25 MG TAB PO (08:37)
[2017-11-04] MEDS: CLOPIDOGREL 75 MG TAB PO (08:37)
[2017-11-04] MEDS: PANTOPRAZOLE 40MG TAB (PROTONIX) PO (08:37)
[2017-11-06 08:27] LABS: BEDSIDE GLUCOSE 348 MG/DL (80-115)
[2017-11-06 08:27] LABS: BEDSIDE GLUCOSE 102 MG/DL (80-115)
[2017-11-06 08:27] LABS: BEDSIDE GLUCOSE 283 MG/DL (80-115)
[2017-11-06 21:47] LABS: BEDSIDE GLUCOSE 135 MG/DL (80-115)
[2017-11-06 21:47] LABS: BEDSIDE GLUCOSE 138 MG/DL (80-115)
== END 2017-11-04 12:10 | disposition home health service (06) | DRG 190 ==
LOC: M ED INP 10-27 02:19 → M PCU 10-30 14:44 → M MS5PR 11-02 11:30 → M MS4PR 10-27 22:35 → M ICU 10-29 18:15 → M MSPAV 10-28 17:18 → M ED 19:13
PROC: 5A1D70Z Performance of Urinary Filtration, Intermittent, Less than 6 Hours Per Day (ICD-10-PCS; principal; 2017-10-29)
DX: J44.1 Chronic obstructive pulmonary disease with (acute) exacerbation (principal); N18.6 End stage renal disease; J18.9 Pneumonia, unspecified organism; J21.0 Acute bronchiolitis due to respiratory syncytial virus; E87.1 Hypo-osmolality and hyponatremia; I12.0 Hypertensive chronic kidney disease with stage 5 chronic kidney disease or end stage renal disease; E87.6 Hypokalemia; E10.22 Type 1 diabetes mellitus with diabetic chronic kidney disease; J44.0 Chronic obstructive pulmonary disease with (acute) lower respiratory infection; D63.1 Anemia in chronic kidney disease; D17.0 Benign lipomatous neoplasm of skin and subcutaneous tissue of head, face and neck; E10.65 Type 1 diabetes mellitus with hyperglycemia; B96.3 Hemophilus influenzae [H. influenzae] as the cause of diseases classified elsewhere; I25.10 Atherosclerotic heart disease of native coronary artery without angina pectoris; F32.9 Major depressive disorder, single episode, unspecified; K21.9 Gastro-esophageal reflux disease without esophagitis; Z99.2 Dependence on renal dialysis; Z88.2 Allergy status to sulfonamides; Z88.6 Allergy status to analgesic agent; Z88.8 Allergy status to other drugs, medicaments and biological substances; Z86.73 Personal history of transient ischemic attack (TIA), and cerebral infarction without residual deficits; Z95.828 Presence of other vascular implants and grafts; Z87.891 Personal history of nicotine dependence; Y95 Nosocomial condition

== ENCOUNTER → 2017-12-26 | Outpatient (CLI) | payer MEDICARE | LOC: M SMT 10:31 | DX: Z87.01 Personal history of pneumonia (recurrent) (principal) ==

== ENCOUNTER → 2018-01-02 | Outpatient (CLI) | payer MEDICARE | LOC: M SMT 09:55 | DX: Z87.01 Personal history of pneumonia (recurrent) (principal) | CPT/HCPCS: 71046 ==

== ENCOUNTER 2018-01-29 18:21 | Inpatient (IN) | payer MEDICARE ==
[2018-01-29 19:29] LABS: BASO % 0.6 % (0.0-1.0); EOS # 0.1 10^3/uL (0.0-0.50); EOS % 2.9 % (0.0-3.0); IMMATURE GRANULOCYTE % 1.1 % (0-3.0); LYMPH # 1.2 10^3/uL (1.5-4.5); LYMPH % 34.5 % (24.0-44.0); MEAN CORPUSCULAR HEMOGLOBIN 36.5 pg (27.0-33.0); MEAN CORPUSCULAR HGB CONC 33.8 g/dl (32.0-36.5); MEAN CORPUSCULAR VOLUME 108.1 fl (80.0-96.0); MONO # 0.5 10^3/uL (0.0-0.8); MONO % 14.9 % (0.0-5.0); NEUTROPHILS # 1.6 10^3/uL (1.8-7.7); PLATELET COUNT, AUTOMATED 218 10^3/uL (150-450); RED BLOOD COUNT 1.48 10^6/uL (4.30-6.10); RED CELL DISTRIBUTION WIDTH 16.2 % (11.5-14.5); WHITE BLOOD COUNT 3.5 10^3/uL (4.0-10.0)
[2018-01-29 19:45] LABS: HEMOGLOBIN 5.4 g/dl (13.5-17.5)
[2018-01-29 19:53] LABS: INR 0.95; PROTHROMBIN TIME 12.8 SECONDS (12.4-14.5)
[2018-01-29 20:01] LABS: ALBUMIN 3.1 GM/DL (3.2-5.2); ALKALINE PHOSPHATASE 59 U/L (45-117); ALT/SGPT 18 U/L (12-78); ANION GAP 12 MEQ/L (8-16); AST/SGOT 17 U/L (7-37); BILIRUBIN,DIRECT < 0.1 MG/DL (0.0-0.2); BILIRUBIN,TOTAL 0.2 MG/DL (0.2-1.0); BLOOD UREA NITROGEN 88 MG/DL (7-18); CALCIUM LEVEL 7.1 MG/DL (8.8-10.2); CARBON DIOXIDE LEVEL 23 MEQ/L (21-32); CHLORIDE LEVEL 103 MEQ/L (98-107); CPK CREATINE PHOSPHOKINASE 91 U/L (39-308); CREATININE FOR GFR 6.76 MG/DL (0.70-1.30); GLOMERULAR FILTRATION RATE 8.8 (>49); GLUCOSE, FASTING 139 MG/DL (70-100); POTASSIUM SERUM 4.1 MEQ/L (3.5-5.1); SODIUM LEVEL 138 MEQ/L (136-145); TOTAL PROTEIN 6.2 GM/DL (6.4-8.2); TROPONIN I < 0.02 NG/ML (< 0.10)
[2018-01-29] MEDS: PANTOPRAZOLE 40MG INJ (PROTONIX) (C9113) IV (20:02)
[2018-01-29 20:06] LABS: CK-MB VALUE MASS 1.9 NG/ML (<3.6); MB/CK RELATIVE INDEX 2.08 (< OR =4); NT-PRO BNP 4997 PG/ML (<125)
[2018-01-29] MEDS ORDERED: IPRATROPIUM 0.5MG/ALBUTEROL 2.5MG INH SOL UD 3ML (DUONEB)(J7620) NEB (21:15)
[2018-01-29] MEDS ORDERED: CALCITRIOL 0.25 MCG CAP (S0169) PO (21:15)
[2018-01-29] MEDS ORDERED: GLUCOSE 4 GM CHEW TABLET PO (21:15)
[2018-01-29] MEDS ORDERED: GLUCAGON FOR INJ 1 MG VIAL (J1610) SC (21:15)
[2018-01-29] MEDS ORDERED: DEXTROSE 50% 50 ML SYRINGE IV (21:15)
[2018-01-29] MEDS ORDERED: ONDANSETRON 4MG/2ML VIAL (J2405) IV (21:30)
[2018-01-29] MEDS: MIRTAZAPINE 15 MG TAB PO (21:47)
[2018-01-29 23:46] LABS: IMMEDIATE SPIN CROSSMATCH 1 5
[2018-01-30] MEDS: **hydrALAZINE** 10 MG TAB PO ×6 (02:00→23:53)
[2018-01-30 02:02] LABS: HEMATOCRIT 24.8 % (42.0-52.0)
[2018-01-30 02:06] LABS: HEMOGLOBIN 8.5 g/dl (13.5-17.5)
[2018-01-30 02:11] LABS: IONIZED CALCIUM 3.8 MG/DL (4.5-5.3)
[2018-01-30 02:32] LABS: CK-MB VALUE MASS 2.1 NG/ML (<3.6); CPK CREATINE PHOSPHOKINASE 95 U/L (39-308); MB/CK RELATIVE INDEX 2.21 (< OR =4); TROPONIN I < 0.02 NG/ML (< 0.10)
[2018-01-30] MEDS: CALCIUM GLUCONATE 1,000 MG in D5W MINI-BAG PLUS 100 ML IV (03:19)
[2018-01-30] MEDS: hydrALAZINE INJ 20 MG/ML VIAL IV (04:10)
[2018-01-30] MEDS: cloNIDine 0.1 MG TAB PO ×3 (04:46→20:21)
[2018-01-30 05:41] LABS: BEDSIDE GLUCOSE 62 MG/DL (80-115)
[2018-01-30 06:10] LABS: BEDSIDE GLUCOSE 101 MG/DL (80-115)
[2018-01-30 07:01] LABS: HEMATOCRIT 25.5 % (42.0-52.0); HEMOGLOBIN 8.8 g/dl (13.5-17.5); MEAN CORPUSCULAR HEMOGLOBIN 33.5 pg (27.0-33.0); MEAN CORPUSCULAR HGB CONC 34.5 g/dl (32.0-36.5); PLATELET COUNT, AUTOMATED 207 10^3/uL (150-450); RED BLOOD COUNT 2.63 10^6/uL (4.30-6.10); RED CELL DISTRIBUTION WIDTH 19.1 % (11.5-14.5); WHITE BLOOD COUNT 4.3 10^3/uL (4.0-10.0)
[2018-01-30 07:15] LABS: INR 0.93; PROTHROMBIN TIME 12.5 SECONDS (12.4-14.5)
[2018-01-30 07:16] LABS: PARTIAL THROMBOPLASTIN TIME 36.9 SECONDS (26.8-37.9)
[2018-01-30 07:17] LABS: ALBUMIN 3.1 GM/DL (3.2-5.2); ANION GAP 15 MEQ/L (8-16); BLOOD UREA NITROGEN 84 MG/DL (7-18); CALCIUM LEVEL 7.9 MG/DL (8.8-10.2); CARBON DIOXIDE LEVEL 20 MEQ/L (21-32); CHLORIDE LEVEL 104 MEQ/L (98-107); CREATININE FOR GFR 7.11 MG/DL (0.70-1.30); GLOMERULAR FILTRATION RATE 8.3 (>49); GLUCOSE, FASTING 115 MG/DL (70-100); MAGNESIUM LEVEL 2.2 MG/DL (1.8-2.4); POTASSIUM SERUM 3.9 MEQ/L (3.5-5.1); SODIUM LEVEL 139 MEQ/L (136-145)
[2018-01-30] MEDS: PANTOPRAZOLE 40MG INJ (PROTONIX) (C9113) IV ×2 (09:00→20:21)
[2018-01-30] MEDS: CitaloPRAM (CeleXA) 20 MG TAB PO (09:00)
[2018-01-30] MEDS: ATORVASTATIN 20 MG TAB PO (13:00)
[2018-01-30 14:04] LABS: BEDSIDE GLUCOSE 126 MG/DL (80-115)
[2018-01-30 14:15] LABS: HEMATOCRIT 28.4 % (42.0-52.0); HEMOGLOBIN 9.9 g/dl (13.5-17.5); MEAN CORPUSCULAR HEMOGLOBIN 33.6 pg (27.0-33.0); MEAN CORPUSCULAR HGB CONC 34.9 g/dl (32.0-36.5); MEAN CORPUSCULAR VOLUME 96.3 fl (80.0-96.0); PLATELET COUNT, AUTOMATED 237 10^3/uL (150-450); RED BLOOD COUNT 2.95 10^6/uL (4.30-6.10); RED CELL DISTRIBUTION WIDTH 19.4 % (11.5-14.5); WHITE BLOOD COUNT 3.7 10^3/uL (4.0-10.0)
[2018-01-30 17:13] LABS: BEDSIDE GLUCOSE 183 MG/DL (80-115)
[2018-01-30] MEDS ORDERED: SLF 3 ML SYR IV (17:15)
[2018-01-30 17:58] LABS: HEMATOCRIT 28.1 % (42.0-52.0); HEMOGLOBIN 9.8 g/dl (13.5-17.5); MEAN CORPUSCULAR HEMOGLOBIN 33.4 pg (27.0-33.0); MEAN CORPUSCULAR HGB CONC 34.9 g/dl (32.0-36.5); MEAN CORPUSCULAR VOLUME 95.9 fl (80.0-96.0); PLATELET COUNT, AUTOMATED 239 10^3/uL (150-450); RED BLOOD COUNT 2.93 10^6/uL (4.30-6.10); RED CELL DISTRIBUTION WIDTH 19.5 % (11.5-14.5); WHITE BLOOD COUNT 4.4 10^3/uL (4.0-10.0)
[2018-01-30 20:09] LABS: BEDSIDE GLUCOSE 377 MG/DL (80-115)
[2018-01-30] MEDS: SLF 3 ML SYR IV (20:21)
[2018-01-30] MEDS: MIRTAZAPINE 15 MG TAB PO (20:21)
[2018-01-30] MEDS: ACETAMINOPHEN TAB 650MG DOSE (2X325MG) PO (23:53)
[2018-01-30 23:59] LABS: BEDSIDE GLUCOSE 353 MG/DL (80-115)
[2018-01-31 00:39] LABS: HEMATOCRIT 26.6 % (42.0-52.0); HEMOGLOBIN 9.1 g/dl (13.5-17.5); MEAN CORPUSCULAR HEMOGLOBIN 33.2 pg (27.0-33.0); MEAN CORPUSCULAR HGB CONC 34.2 g/dl (32.0-36.5); MEAN CORPUSCULAR VOLUME 97.1 fl (80.0-96.0); PLATELET COUNT, AUTOMATED 216 10^3/uL (150-450); RED BLOOD COUNT 2.74 10^6/uL (4.30-6.10); RED CELL DISTRIBUTION WIDTH 19.1 % (11.5-14.5)
[2018-01-31] MEDS: **hydrALAZINE** 10 MG TAB PO ×3 (05:39→17:46)
[2018-01-31] MEDS: SLF 3 ML SYR IV ×3 (05:39→20:53)
[2018-01-31 05:56] LABS: HEMATOCRIT 28.2 % (42.0-52.0); HEMOGLOBIN 9.8 g/dl (13.5-17.5); MEAN CORPUSCULAR HEMOGLOBIN 33.8 pg (27.0-33.0); MEAN CORPUSCULAR HGB CONC 34.8 g/dl (32.0-36.5); MEAN CORPUSCULAR VOLUME 97.2 fl (80.0-96.0); PLATELET COUNT, AUTOMATED 247 10^3/uL (150-450); RED CELL DISTRIBUTION WIDTH 18.6 % (11.5-14.5); WHITE BLOOD COUNT 3.8 10^3/uL (4.0-10.0)
[2018-01-31 06:08] LABS: ANION GAP 8 MEQ/L (8-16); BLOOD UREA NITROGEN 33 MG/DL (7-18); CALCIUM LEVEL 8.7 MG/DL (8.8-10.2); CARBON DIOXIDE LEVEL 29 MEQ/L (21-32); CHLORIDE LEVEL 100 MEQ/L (98-107); CREATININE FOR GFR 4.95 MG/DL (0.70-1.30); GLOMERULAR FILTRATION RATE 12.6 (>49); GLUCOSE, FASTING 172 MG/DL (70-100); MAGNESIUM LEVEL 2.1 MG/DL (1.8-2.4); POTASSIUM SERUM 4.1 MEQ/L (3.5-5.1); SODIUM LEVEL 137 MEQ/L (136-145)
[2018-01-31] MEDS ORDERED: PROPOFOL 200 MG/20 ML VIAL As Ordered (09:38)
[2018-01-31] MEDS: PANTOPRAZOLE 40MG INJ (PROTONIX) (C9113) IV ×2 (11:07→20:52)
[2018-01-31] MEDS: cloNIDine 0.1 MG TAB PO ×2 (11:08→20:53)
[2018-01-31] MEDS: SPIRONOLACTONE 25 MG TAB PO ×2 (11:08→17:42)
[2018-01-31] MEDS: CitaloPRAM (CeleXA) 20 MG TAB PO (11:18)
[2018-01-31 12:46] LABS: BEDSIDE GLUCOSE 190 MG/DL (80-115)
[2018-01-31] MEDS: ASPIRIN 81 MG ENTERIC TAB PO (12:46)
[2018-01-31] MEDS: ATORVASTATIN 20 MG TAB PO (12:50)
[2018-01-31 17:13] LABS: BEDSIDE GLUCOSE 408 MG/DL (80-115)
[2018-01-31 18:04] LABS: HEMATOCRIT 26.6 % (42.0-52.0); HEMOGLOBIN 9.2 g/dl (13.5-17.5); MEAN CORPUSCULAR HEMOGLOBIN 33.8 pg (27.0-33.0); MEAN CORPUSCULAR HGB CONC 34.6 g/dl (32.0-36.5); MEAN CORPUSCULAR VOLUME 97.8 fl (80.0-96.0); PLATELET COUNT, AUTOMATED 243 10^3/uL (150-450); RED BLOOD COUNT 2.72 10^6/uL (4.30-6.10); RED CELL DISTRIBUTION WIDTH 18.2 % (11.5-14.5); WHITE BLOOD COUNT 3.6 10^3/uL (4.0-10.0)
[2018-01-31 20:09] LABS: BEDSIDE GLUCOSE 401 MG/DL (80-115)
[2018-01-31] MEDS: MIRTAZAPINE 15 MG TAB PO (20:53)
[2018-02-01 00:36] LABS: HEMATOCRIT 26.8 % (42.0-52.0); HEMOGLOBIN 9.2 g/dl (13.5-17.5); MEAN CORPUSCULAR HEMOGLOBIN 33.5 pg (27.0-33.0); MEAN CORPUSCULAR HGB CONC 34.3 g/dl (32.0-36.5); MEAN CORPUSCULAR VOLUME 97.5 fl (80.0-96.0); PLATELET COUNT, AUTOMATED 229 10^3/uL (150-450); RED BLOOD COUNT 2.75 10^6/uL (4.30-6.10); RED CELL DISTRIBUTION WIDTH 17.9 % (11.5-14.5); WHITE BLOOD COUNT 4.8 10^3/uL (4.0-10.0)
[2018-02-01] MEDS: **hydrALAZINE** 10 MG TAB PO ×3 (05:14→12:00)
[2018-02-01 05:32] LABS: BASO % 0.4 % (0.0-1.0); EOS # 0.1 10^3/uL (0.0-0.50); EOS % 2.4 % (0.0-3.0); HEMATOCRIT 25.9 % (42.0-52.0); IMMATURE GRANULOCYTE % 0.6 % (0-3.0); LYMPH # 0.8 10^3/uL (1.5-4.5); LYMPH % 16.8 % (24.0-44.0); MEAN CORPUSCULAR HGB CONC 34.7 g/dl (32.0-36.5); MEAN CORPUSCULAR VOLUME 97.7 fl (80.0-96.0); MONO # 0.8 10^3/uL (0.0-0.8); MONO % 15.6 % (0.0-5.0); NEUTROPHILS # 3.2 10^3/uL (1.8-7.7); NEUTROPHILS % 64.2 % (36.0-66.0); PLATELET COUNT, AUTOMATED 237 10^3/uL (150-450); RED BLOOD COUNT 2.65 10^6/uL (4.30-6.10); RED CELL DISTRIBUTION WIDTH 17.7 % (11.5-14.5)
[2018-02-01 05:47] LABS: ANION GAP 9 MEQ/L (8-16); BLOOD UREA NITROGEN 48 MG/DL (7-18); CALCIUM LEVEL 8.2 MG/DL (8.8-10.2); CARBON DIOXIDE LEVEL 28 MEQ/L (21-32); CHLORIDE LEVEL 104 MEQ/L (98-107); CREATININE FOR GFR 6.34 MG/DL (0.70-1.30); GLOMERULAR FILTRATION RATE 9.4 (>49); GLUCOSE, FASTING 40 MG/DL (70-100); MAGNESIUM LEVEL 2.2 MG/DL (1.8-2.4); POTASSIUM SERUM 3.8 MEQ/L (3.5-5.1); SODIUM LEVEL 141 MEQ/L (136-145)
[2018-02-01] MEDS: PANTOPRAZOLE 40MG INJ (PROTONIX) (C9113) IV (06:12)
[2018-02-01] MEDS: SPIRONOLACTONE 25 MG TAB PO (06:13)
[2018-02-01] MEDS: cloNIDine 0.1 MG TAB PO (06:13)
[2018-02-01] MEDS: SLF 3 ML SYR IV (06:13)
[2018-02-01] MEDS: ASPIRIN 81 MG ENTERIC TAB PO (06:13)
[2018-02-01] MEDS: CitaloPRAM (CeleXA) 20 MG TAB PO (06:13)
[2018-02-01 06:46] LABS: BEDSIDE GLUCOSE 85 MG/DL (80-115)
[2018-02-01 11:52] LABS: BEDSIDE GLUCOSE 294 MG/DL (80-115)
[2018-02-01] MEDS: ATORVASTATIN 20 MG TAB PO (12:07)
[2018-02-01] MEDS ORDERED: LIDOCAINE 1% SDV 5 ML VIAL SQ (12:45)
== END 2018-02-01 12:59 | disposition home or self-care (01) | DRG 377 ==
LOC: M PCU 01-30 11:47 → M ED 18:21 → M ED INP 20:34
PROC: 0DJ08ZZ Inspection of Upper Intestinal Tract, Via Natural or Artificial Opening Endoscopic (ICD-10-PCS; principal; 2018-01-31 09:37)
PROC: 5A1D70Z Performance of Urinary Filtration, Intermittent, Less than 6 Hours Per Day (ICD-10-PCS; 2018-01-31 09:37)
PROC: 30233N1 Transfusion of Nonautologous Red Blood Cells into Peripheral Vein, Percutaneous Approach (ICD-10-PCS; 2018-01-31 09:37)
DX: K92.1 Melena (principal); N18.6 End stage renal disease; I12.0 Hypertensive chronic kidney disease with stage 5 chronic kidney disease or end stage renal disease; D62 Acute posthemorrhagic anemia; I25.10 Atherosclerotic heart disease of native coronary artery without angina pectoris; D50.9 Iron deficiency anemia, unspecified; F41.9 Anxiety disorder, unspecified; E11.51 Type 2 diabetes mellitus with diabetic peripheral angiopathy without gangrene; F32.9 Major depressive disorder, single episode, unspecified; E11.22 Type 2 diabetes mellitus with diabetic chronic kidney disease; D63.1 Anemia in chronic kidney disease; J44.9 Chronic obstructive pulmonary disease, unspecified; E83.51 Hypocalcemia; E11.40 Type 2 diabetes mellitus with diabetic neuropathy, unspecified; E78.5 Hyperlipidemia, unspecified; K21.9 Gastro-esophageal reflux disease without esophagitis; K44.9 Diaphragmatic hernia without obstruction or gangrene; E11.319 Type 2 diabetes mellitus with unspecified diabetic retinopathy without macular edema; Z86.73 Personal history of transient ischemic attack (TIA), and cerebral infarction without residual deficits; Z79.4 Long term (current) use of insulin; Z95.5 Presence of coronary angioplasty implant and graft; Z95.820 Peripheral vascular angioplasty status with implants and grafts; Z99.2 Dependence on renal dialysis; Z88.1 Allergy status to other antibiotic agents; Z88.6 Allergy status to analgesic agent; Z88.8 Allergy status to other drugs, medicaments and biological substances; Z79.891 Long term (current) use of opiate analgesic; Z79.82 Long term (current) use of aspirin; Z79.02 Long term (current) use of antithrombotics/antiplatelets; Z79.899 Other long term (current) drug therapy; Z89.421 Acquired absence of other right toe(s); Z87.891 Personal history of nicotine dependence; Z86.14 Personal history of Methicillin resistant Staphylococcus aureus infection

== ENCOUNTER 2018-02-13 16:18 | Outpatient (CLI) | payer MEDICARE ==
[2018-02-13] MEDS: **hydrALAZINE HCL** 25 MG TAB PO (19:51)
[2018-02-13] MEDS: SPIRONOLACTONE 25 MG TAB PO (19:51)
[2018-02-13 20:02] LABS: IMMEDIATE SPIN CROSSMATCH 1 2
== END 2018-02-13 22:30 | disposition home or self-care (01) ==
LOC: M OPCLI4PV 16:18 → M PED 16:28 → M OPCLI4PV 22:30
DX: D64.9 Anemia, unspecified (principal); E11.22 Type 2 diabetes mellitus with diabetic chronic kidney disease; N18.6 End stage renal disease; Z79.82 Long term (current) use of aspirin; Z79.899 Other long term (current) drug therapy; Z79.4 Long term (current) use of insulin; Z88.8 Allergy status to other drugs, medicaments and biological substances; Z88.1 Allergy status to other antibiotic agents
CPT/HCPCS: 36430

== ENCOUNTER → 2018-03-07 | Outpatient (CLI) | payer MEDICARE ==
[~2018-03-07] MED LIST changes: -/ESCI20TA OR; -/PANT40TA PO; -AMLO10TA2 PO; -AMLO5TAB2 PO; -ASPI1TAB PO; -ASPI81TA45 OR; -ATOR80TA59 PO; -BUME1TAB OR; -CALC0.5C PO; -CALC0.5C6 PO; -CALC600T10 OR; -CITA40TA4 PO; -CLON-412 PO; -DULO20CA OR; -FEBU40TA PO; -FERR1TAB8 PO; -FERR325T3 PO; -HYDR-3713 PO; -HYDR25TA PO; -INSULANT SC; -INSUR SC; +ISOVUE-300 61% 50ML VIAL (Q9967) As Ordered; -Insulin Pump SQ; -LIDO5DIS41 TD; -LISI10TA4 OR; +MIDAZOLAM INJ 2 MG/2 ML VIAL (J2250) As Ordered; -MIRT45TA OR; -MIRT45TA PO; -NUCY100T11 PO; -PANT40TA2 PO; -PLAV1TAB2; -PLAV1TAB2 PO; -PLAV75TA2 OR; -POTA10CA PO; -SPIR25TA2 PO; -TORS20TA2 PO; -VICO5TAB PO; -VITAMIN D50000 UNT OR; -[UNRECOGNIZED DRUG - OTHER] PO; +fentaNYL 100 MCG/2 ML INJECTION (J3010) As Ordered; -iron PO; -lantus SQ
== END | disposition home or self-care (01) ==
LOC: M IRPRO 07:47
DX: T82.858A Stenosis of other vascular prosthetic devices, implants and grafts, initial encounter (principal); N18.6 End stage renal disease
CPT/HCPCS: 36902

== ENCOUNTER → 2018-04-18 | Outpatient (CLI) | payer MEDICARE | LOC: M RAD 12:58 | DX: I70.213 Atherosclerosis of native arteries of extremities with intermittent claudication, bilateral legs (principal); N18.6 End stage renal disease; Z99.2 Dependence on renal dialysis; Z79.899 Other long term (current) drug therapy; I12.0 Hypertensive chronic kidney disease with stage 5 chronic kidney disease or end stage renal disease | CPT/HCPCS: 93925 ==

== ENCOUNTER 2018-04-25 09:40 | Day surgery (SDC) | payer MEDICARE ==
[2018-04-25 10:24] LABS: BEDSIDE GLUCOSE 204 MG/DL (80-115)
[2018-04-25] MEDS: NS 1,000 ML IV (10:24)
[2018-04-25] MEDS ORDERED: PROPOFOL 200 MG/20 ML VIAL As Ordered (10:53)
[2018-04-25] MEDS ORDERED: LIDOCAINE 2% INJ 100 MG/5 ML SDV (FOR ANES.) As Ordered (10:53)
[2018-04-25] MEDS ORDERED: fentaNYL 100 MCG/2 ML INJECTION (J3010) As Ordered (10:54)
[2018-04-25] MEDS ORDERED: ePHEDrine SULFATE 25 MG/5 ML(5MG/ML) SYRINGE As Ordered (11:30)
== END 2018-04-25 12:39 | disposition home or self-care (01) ==
LOC: M OPP 09:40
DX: D62 Acute posthemorrhagic anemia (principal); K62.1 Rectal polyp; K57.30 Diverticulosis of large intestine without perforation or abscess without bleeding; D50.9 Iron deficiency anemia, unspecified; K31.89 Other diseases of stomach and duodenum; K29.70 Gastritis, unspecified, without bleeding; I12.9 Hypertensive chronic kidney disease with stage 1 through stage 4 chronic kidney disease, or unspecified chronic kidney disease; Z95.5 Presence of coronary angioplasty implant and graft; I25.119 Atherosclerotic heart disease of native coronary artery with unspecified angina pectoris; I25.2 Old myocardial infarction; E78.5 Hyperlipidemia, unspecified; E10.9 Type 1 diabetes mellitus without complications; Z96.41 Presence of insulin pump (external) (internal); K21.9 Gastro-esophageal reflux disease without esophagitis; Z87.891 Personal history of nicotine dependence; Z86.14 Personal history of Methicillin resistant Staphylococcus aureus infection; M19.90 Unspecified osteoarthritis, unspecified site; M54.89 Other dorsalgia; F41.9 Anxiety disorder, unspecified; F32.9 Major depressive disorder, single episode, unspecified; J44.9 Chronic obstructive pulmonary disease, unspecified; G47.30 Sleep apnea, unspecified; R06.83 Snoring; Z99.2 Dependence on renal dialysis; N18.9 Chronic kidney disease, unspecified; Z88.8 Allergy status to other drugs, medicaments and biological substances; Z88.1 Allergy status to other antibiotic agents; Z88.2 Allergy status to sulfonamides; Z79.82 Long term (current) use of aspirin; Z79.4 Long term (current) use of insulin; Z79.899 Other long term (current) drug therapy
CPT/HCPCS: 45385

== ENCOUNTER 2018-06-13 12:41 | Day surgery (SDC) | payer MEDICARE ==
[~2018-06-13 12:41] MED LIST changes: -ISOVUE-300 61% 50ML VIAL (Q9967) As Ordered; +LIDOCAINE 2% INJ 100 MG/5 ML SDV (FOR ANES.) As Ordered; -MIDAZOLAM INJ 2 MG/2 ML VIAL (J2250) As Ordered; +PROPOFOL 200 MG/20 ML VIAL As Ordered; -fentaNYL 100 MCG/2 ML INJECTION (J3010) As Ordered
[2018-06-13 13:29] LABS: POTASSIUM SERUM 3.4 MEQ/L (3.5-5.1)
[2018-06-13] MEDS: NS 1,000 ML IV (13:29)
[2018-06-13 13:45] LABS: BEDSIDE GLUCOSE 54 MG/DL (80-115)
[2018-06-13] MEDS ORDERED: D5W/0.45% SODIUM CHLORIDE 1,000 ML IV (14:30)
[2018-06-13 15:41] LABS: BEDSIDE GLUCOSE 196 MG/DL (80-115)
== END 2018-06-13 16:10 | disposition home or self-care (01) ==
LOC: M OPP 16:10
DX: R93.3 Abnormal findings on diagnostic imaging of other parts of digestive tract (principal); D50.9 Iron deficiency anemia, unspecified; K31.819 Angiodysplasia of stomach and duodenum without bleeding; I25.119 Atherosclerotic heart disease of native coronary artery with unspecified angina pectoris; Z95.5 Presence of coronary angioplasty implant and graft; I25.2 Old myocardial infarction; I12.9 Hypertensive chronic kidney disease with stage 1 through stage 4 chronic kidney disease, or unspecified chronic kidney disease; E78.5 Hyperlipidemia, unspecified; I73.9 Peripheral vascular disease, unspecified; E10.9 Type 1 diabetes mellitus without complications; Z96.41 Presence of insulin pump (external) (internal); E16.2 Hypoglycemia, unspecified; K92.2 Gastrointestinal hemorrhage, unspecified; K21.9 Gastro-esophageal reflux disease without esophagitis; R12 Heartburn; R23.3 Spontaneous ecchymoses; I77.0 Arteriovenous fistula, acquired; Z86.14 Personal history of Methicillin resistant Staphylococcus aureus infection; M19.90 Unspecified osteoarthritis, unspecified site; M54.89 Other dorsalgia; F41.9 Anxiety disorder, unspecified; F32.9 Major depressive disorder, single episode, unspecified; J45.909 Unspecified asthma, uncomplicated; J44.9 Chronic obstructive pulmonary disease, unspecified; G47.30 Sleep apnea, unspecified; R06.83 Snoring; Z99.2 Dependence on renal dialysis; N18.9 Chronic kidney disease, unspecified; Z87.891 Personal history of nicotine dependence; Z88.8 Allergy status to other drugs, medicaments and biological substances; Z88.2 Allergy status to sulfonamides; Z88.1 Allergy status to other antibiotic agents; Z79.82 Long term (current) use of aspirin; Z79.4 Long term (current) use of insulin; Z79.899 Other long term (current) drug therapy
CPT/HCPCS: 43255

== ENCOUNTER 2018-06-27 06:19 | Inpatient (IN) | payer MEDICARE ==
[2018-06-27] MEDS ORDERED: HEPARIN 1,000 UNITS/ML 10ML VIAL (FOR RADIOLOGY& DIALYSIS ONLY) As Ordered (06:32)
[2018-06-27] MEDS ORDERED: ISOVUE-300 61% 50ML VIAL (Q9967) As Ordered (06:32)
[2018-06-27] MEDS ORDERED: fentaNYL 100 MCG/2 ML INJECTION (J3010) As Ordered ×5 (06:35→11:46)
[2018-06-27] MEDS ORDERED: MIDAZOLAM INJ 2 MG/2 ML VIAL (J2250) As Ordered ×3 (06:35→09:45)
[2018-06-27] MEDS ORDERED: LIDOCAINE 2% MDV 20 ML VIAL As Ordered (07:18)
[2018-06-27] MEDS ORDERED: HEPARIN SOD (PORCINE) 5000 UNITS/ML VIAL As Ordered ×4 (09:10→10:03)
[2018-06-27 09:17] LABS: BEDSIDE GLUCOSE 57 MG/DL (80-115)
[2018-06-27] MEDS ORDERED: LIDOCAINE 2% INJ 100 MG/5 ML SDV (FOR ANES.) As Ordered (09:23)
[2018-06-27] MEDS ORDERED: PROPOFOL 200 MG/20 ML VIAL As Ordered ×4 (09:23→12:40)
[2018-06-27] MEDS ORDERED: ONDANSETRON 4MG/2ML VIAL (J2405) As Ordered (09:23)
[2018-06-27] MEDS ORDERED: dexameTHASONE 4 MG/ML 1ML VIAL (J1100) As Ordered (09:23)
[2018-06-27] MEDS ORDERED: GLYCOPYRROLATE INJ 0.2 MG/ML 2 ML VIAL As Ordered (09:36)
[2018-06-27] MEDS ORDERED: THROMBIN SOLN 20,000 UNITS KIT As Ordered (09:38)
[2018-06-27 10:04] LABS: HEMATOCRIT 30.2 % (42.0-52.0); HEMOGLOBIN 10.1 g/dl (13.5-17.5); MEAN CORPUSCULAR HEMOGLOBIN 34.9 pg (27.0-33.0); MEAN CORPUSCULAR HGB CONC 33.4 g/dl (32.0-36.5); MEAN CORPUSCULAR VOLUME 104.5 fl (80.0-96.0); PLATELET COUNT, AUTOMATED 224 10^3/uL (150-450); RED BLOOD COUNT 2.89 10^6/uL (4.30-6.10); RED CELL DISTRIBUTION WIDTH 15.5 % (11.5-14.5); WHITE BLOOD COUNT 4.7 10^3/uL (4.0-10.0)
[2018-06-27 10:14] LABS: INR 1.08; PROTHROMBIN TIME 14.2 SECONDS (12.1-14.4)
[2018-06-27] MEDS ORDERED: KETAMINE HCL 200 MG/20 ML VIAL As Ordered (10:25)
[2018-06-27 10:56] LABS: PARTIAL THROMBOPLASTIN TIME 223.1 SECONDS (25.4-37.6)
[2018-06-27 11:04] LABS: ALBUMIN 2.7 GM/DL (3.2-5.2); ALBUMIN/GLOBULIN RATIO 0.79 (1.00-1.93); ALKALINE PHOSPHATASE 73 U/L (45-117); ALT/SGPT 18 U/L (12-78); ANION GAP 9 MEQ/L (8-16); AST/SGOT 17 U/L (7-37); BILIRUBIN,TOTAL 0.3 MG/DL (0.2-1.0); BLOOD UREA NITROGEN 33 MG/DL (7-18); CALCIUM LEVEL 7.1 MG/DL (8.8-10.2); CARBON DIOXIDE LEVEL 31 MEQ/L (21-32); CHLORIDE LEVEL 103 MEQ/L (98-107); CREATININE FOR GFR 4.71 MG/DL (0.70-1.30); GLOMERULAR FILTRATION RATE 13.3 (>49); GLUCOSE, FASTING 122 MG/DL (70-100); POTASSIUM SERUM 3.1 MEQ/L (3.5-5.1); SODIUM LEVEL 143 MEQ/L (136-145); TOTAL PROTEIN 6.1 GM/DL (6.4-8.2)
[2018-06-27] MEDS ORDERED: ePHEDrine SULFATE 25 MG/5 ML(5MG/ML) SYRINGE As Ordered ×2 (11:17)
[2018-06-27] MEDS: LIDOCAINE 1% SDV INJ 30 ML VIAL As Ordered (11:45)
[2018-06-27] MEDS: BUPIVACAINE HCL 0.5% 30 ML VIAL As Ordered (11:45)
[2018-06-27 12:28] LABS: IMMEDIATE SPIN CROSSMATCH 1 2
[2018-06-27] MEDS ORDERED: PROTAMINE SULF INJ 50 MG/5 ML VIAL (J2720) As Ordered ×2 (12:31)
[2018-06-27] MEDS: HEPARIN SOD (PORCINE) 5000 UNITS/ML VIAL As Ordered (12:50)
[2018-06-27] MEDS ORDERED: PHENYLephrine HCL 500 MCG/5 ML (100MCG/ML) SYRINGE (J2370) As Ordered (12:52)
[2018-06-27 13:22] LABS: BEDSIDE GLUCOSE 320 MG/DL (80-115)
[2018-06-27] MEDS ORDERED: ONDANSETRON 4MG/2ML VIAL (J2405) IV (13:45)
[2018-06-27] MEDS ORDERED: fentaNYL 100 MCG/2 ML INJECTION (J3010) IV (13:45)
[2018-06-27] MEDS: NS 1,000 ML IV (13:45)
[2018-06-27] MEDS ORDERED: NS 1,000 ML IV (13:45)
[2018-06-27] MEDS ORDERED: MOM 30ML SUSPENSION UDC PO (14:00)
[2018-06-27] MEDS ORDERED: BISACODYL 10 MG SUPP PR (14:00)
[2018-06-27 14:07] LABS: BEDSIDE GLUCOSE 385 MG/DL (80-115)
[2018-06-27 15:09] LABS: BASO % 0.4 % (0.0-1.0); EOS # 0.1 10^3/uL (0.0-0.50); EOS % 0.6 % (0.0-3.0); HEMATOCRIT 30.3 % (42.0-52.0); HEMOGLOBIN 10.1 g/dl (13.5-17.5); IMMATURE GRANULOCYTE % 0.8 % (0-3.0); LYMPH # 0.5 10^3/uL (1.5-4.5); MEAN CORPUSCULAR HEMOGLOBIN 34.5 pg (27.0-33.0); MEAN CORPUSCULAR HGB CONC 33.3 g/dl (32.0-36.5); MEAN CORPUSCULAR VOLUME 103.4 fl (80.0-96.0); MONO # 0.7 10^3/uL (0.0-0.8); MONO % 7.2 % (0.0-5.0); NEUTROPHILS # 7.7 10^3/uL (1.8-7.7); PLATELET COUNT, AUTOMATED 225 10^3/uL (150-450); RED BLOOD COUNT 2.93 10^6/uL (4.30-6.10); RED CELL DISTRIBUTION WIDTH 17.2 % (11.5-14.5)
[2018-06-27 15:21] LABS: INR 1.03; PROTHROMBIN TIME 13.7 SECONDS (12.1-14.4)
[2018-06-27 15:22] LABS: PARTIAL THROMBOPLASTIN TIME 34.5 SECONDS (25.4-37.6)
[2018-06-27 15:51] LABS: ANION GAP 13 MEQ/L (8-16); BLOOD UREA NITROGEN 31 MG/DL (7-18); CALCIUM LEVEL 6.3 MG/DL (8.8-10.2); CARBON DIOXIDE LEVEL 23 MEQ/L (21-32); CHLORIDE LEVEL 105 MEQ/L (98-107); CREATININE FOR GFR 4.78 MG/DL (0.70-1.30); GLUCOSE, FASTING 323 MG/DL (70-100); POTASSIUM SERUM 4.1 MEQ/L (3.5-5.1); SODIUM LEVEL 141 MEQ/L (136-145)
[2018-06-27] MEDS ORDERED: MORPHINE 4 MG/ML 1ML VIAL/SYRINGE (J2270) IV (16:00)
[2018-06-27 16:28] LABS: BEDSIDE GLUCOSE 314 MG/DL (80-115)
[2018-06-27] MEDS: PERCOCET 5MG/325MG TAB PO ×2 (16:30→23:17)
[2018-06-27] MEDS ORDERED: HumaLOG INSULIN (NovoLOG) PER UNIT SC (18:00)
[2018-06-27] MEDS: ATORVASTATIN 20 MG TAB PO (18:41)
[2018-06-27] MEDS: SPIRONOLACTONE 25 MG TAB PO (18:42)
[2018-06-27] MEDS: **hydrALAZINE HCL** 25 MG TAB PO ×2 (18:42→20:56)
[2018-06-27] MEDS ORDERED: **NOTE PATIENT COMMENT** MISC XX (19:30)
[2018-06-27 20:20] LABS: BEDSIDE GLUCOSE 317 MG/DL (80-115)
[2018-06-27] MEDS: cloNIDine 0.1 MG TAB PO (20:55)
[2018-06-27] MEDS: PANTOPRAZOLE 40MG TAB (PROTONIX) PO (20:55)
[2018-06-27] MEDS: MIRTAZAPINE 15 MG TAB PO (20:56)
[2018-06-27] MEDS: DOCUSATE SODIUM 100 MG CAP PO (20:56)
[2018-06-27] MEDS: SENOKOT S TAB PO (20:56)
[2018-06-27 23:22] LABS: BEDSIDE GLUCOSE 212 MG/DL (80-115)
[2018-06-28] MEDS: cloNIDine 0.1 MG TAB PO ×3 (00:14→20:43)
[2018-06-28 04:48] LABS: HEMATOCRIT 24.4 % (42.0-52.0); HEMOGLOBIN 8.3 g/dl (13.5-17.5); MEAN CORPUSCULAR HEMOGLOBIN 34.4 pg (27.0-33.0); MEAN CORPUSCULAR VOLUME 101.2 fl (80.0-96.0); PLATELET COUNT, AUTOMATED 186 10^3/uL (150-450); RED BLOOD COUNT 2.41 10^6/uL (4.30-6.10); RED CELL DISTRIBUTION WIDTH 17.5 % (11.5-14.5); WHITE BLOOD COUNT 6.6 10^3/uL (4.0-10.0)
[2018-06-28 05:15] LABS: ALBUMIN 2.4 GM/DL (3.2-5.2); ANION GAP 10 MEQ/L (8-16); BLOOD UREA NITROGEN 41 MG/DL (7-18); CALCIUM LEVEL 6.9 MG/DL (8.8-10.2); CARBON DIOXIDE LEVEL 24 MEQ/L (21-32); CHLORIDE LEVEL 104 MEQ/L (98-107); CREATININE FOR GFR 5.85 MG/DL (0.70-1.30); GLOMERULAR FILTRATION RATE 10.3 (>49); GLUCOSE, FASTING 182 MG/DL (70-100); PHOSPHORUS LEVEL 3.7 MG/DL (2.5-4.9); POTASSIUM SERUM 3.7 MEQ/L (3.5-5.1); SODIUM LEVEL 138 MEQ/L (136-145)
[2018-06-28 07:51] LABS: BEDSIDE GLUCOSE 208 MG/DL (80-115)
[2018-06-28] MEDS: DOCUSATE SODIUM 100 MG CAP PO ×2 (08:34→21:11)
[2018-06-28] MEDS: PANTOPRAZOLE 40MG TAB (PROTONIX) PO ×2 (08:34→21:11)
[2018-06-28] MEDS: SENOKOT S TAB PO ×2 (08:34→21:12)
[2018-06-28] MEDS: CitaloPRAM (CeleXA) 20 MG TAB PO (08:34)
[2018-06-28] MEDS: ASPIRIN 81 MG ENTERIC TAB PO (08:34)
[2018-06-28] MEDS: SPIRONOLACTONE 25 MG TAB PO ×2 (08:35→18:02)
[2018-06-28] MEDS: **hydrALAZINE HCL** 25 MG TAB PO ×3 (08:35→20:43)
[2018-06-28] MEDS: PERCOCET 5MG/325MG TAB PO ×2 (08:36→18:03)
[2018-06-28] MEDS: LIDOCAINE 1% SDV 5 ML VIAL SQ (11:45)
[2018-06-28 11:52] LABS: BEDSIDE GLUCOSE 271 MG/DL (80-115)
[2018-06-28] MEDS ORDERED: DARBEPOETIN 100 MCG/0.5 ML *DIALYSIS* SYRINGE (J0882) IV (13:30)
[2018-06-28] MEDS ORDERED: THROMBIN SOLN 20,000 UNITS KIT (14:17)
[2018-06-28] MEDS ORDERED: HEPARIN SOD (PORCINE) 5000 UNITS/ML VIAL ×2 (14:17)
[2018-06-28 17:28] LABS: BEDSIDE GLUCOSE 116 MG/DL (80-115)
[2018-06-28] MEDS: ATORVASTATIN 20 MG TAB PO (18:01)
[2018-06-28] MEDS: CALCITRIOL 0.25 MCG CAP (S0169) PO (18:07)
[2018-06-28 19:59] LABS: BEDSIDE GLUCOSE 197 MG/DL (80-115)
[2018-06-28] MEDS: MIRTAZAPINE 15 MG TAB PO (21:12)
[2018-06-29] MEDS: DOCUSATE SODIUM 100 MG CAP PO ×2 (09:00→21:43)
[2018-06-29 09:27] LABS: BEDSIDE GLUCOSE 270 MG/DL (80-115)
[2018-06-29] MEDS: SENOKOT S TAB PO ×2 (09:28→21:43)
[2018-06-29] MEDS: PANTOPRAZOLE 40MG TAB (PROTONIX) PO ×2 (09:29→21:44)
[2018-06-29] MEDS: CitaloPRAM (CeleXA) 20 MG TAB PO (09:31)
[2018-06-29] MEDS: ASPIRIN 81 MG ENTERIC TAB PO (09:31)
[2018-06-29] MEDS: cloNIDine 0.1 MG TAB PO ×2 (09:31→21:44)
[2018-06-29] MEDS: SPIRONOLACTONE 25 MG TAB PO ×2 (09:32→17:29)
[2018-06-29] MEDS: **hydrALAZINE HCL** 25 MG TAB PO ×3 (09:32→21:44)
[2018-06-29 09:47] LABS: BASO # 0.1 10^3/uL (0.0-0.2); BASO % 0.7 % (0.0-1.0); EOS # 0.1 10^3/uL (0.0-0.50); HEMATOCRIT 23.1 % (42.0-52.0); HEMOGLOBIN 7.8 g/dl (13.5-17.5); IMMATURE GRANULOCYTE % 0.9 % (0-3.0); LYMPH # 0.9 10^3/uL (1.5-4.5); LYMPH % 11.8 % (24.0-44.0); MEAN CORPUSCULAR HEMOGLOBIN 34.5 pg (27.0-33.0); MEAN CORPUSCULAR HGB CONC 33.8 g/dl (32.0-36.5); MEAN CORPUSCULAR VOLUME 102.2 fl (80.0-96.0); MONO # 0.9 10^3/uL (0.0-0.8); MONO % 12.3 % (0.0-5.0); NEUTROPHILS # 5.6 10^3/uL (1.8-7.7); NEUTROPHILS % 73.3 % (36.0-66.0); PLATELET COUNT, AUTOMATED 190 10^3/uL (150-450); RED BLOOD COUNT 2.26 10^6/uL (4.30-6.10); RED CELL DISTRIBUTION WIDTH 16.5 % (11.5-14.5); WHITE BLOOD COUNT 7.6 10^3/uL (4.0-10.0)
[2018-06-29 11:44] LABS: BEDSIDE GLUCOSE 295 MG/DL (80-115)
[2018-06-29] MEDS: ATORVASTATIN 20 MG TAB PO (13:35)
[2018-06-29 13:38] LABS: IMMEDIATE SPIN CROSSMATCH 1 1
[2018-06-29 16:57] LABS: BEDSIDE GLUCOSE 338 MG/DL (80-115)
[2018-06-29] MEDS: MIRTAZAPINE 15 MG TAB PO (21:44)
[2018-06-30 06:30] LABS: BASO # 0.1 10^3/uL (0.0-0.2); BASO % 0.6 % (0.0-1.0); EOS # 0.1 10^3/uL (0.0-0.50); EOS % 1.3 % (0.0-3.0); HEMATOCRIT 27.1 % (42.0-52.0); HEMOGLOBIN 9.2 g/dl (13.5-17.5); IMMATURE GRANULOCYTE % 1.1 % (0-3.0); LYMPH # 0.8 10^3/uL (1.5-4.5); LYMPH % 9.7 % (24.0-44.0); MEAN CORPUSCULAR HEMOGLOBIN 33.1 pg (27.0-33.0); MEAN CORPUSCULAR HGB CONC 33.9 g/dl (32.0-36.5); MEAN CORPUSCULAR VOLUME 97.5 fl (80.0-96.0); MONO # 0.7 10^3/uL (0.0-0.8); MONO % 8.7 % (0.0-5.0); NEUTROPHILS # 6.5 10^3/uL (1.8-7.7); NEUTROPHILS % 78.6 % (36.0-66.0); PLATELET COUNT, AUTOMATED 205 10^3/uL (150-450); RED BLOOD COUNT 2.78 10^6/uL (4.30-6.10); RED CELL DISTRIBUTION WIDTH 17.7 % (11.5-14.5); WHITE BLOOD COUNT 8.3 10^3/uL (4.0-10.0)
[2018-06-30 06:48] LABS: ALBUMIN 2.3 GM/DL (3.2-5.2); ANION GAP 9 MEQ/L (8-16); BLOOD UREA NITROGEN 38 MG/DL (7-18); CALCIUM LEVEL 8.1 MG/DL (8.8-10.2); CARBON DIOXIDE LEVEL 26 MEQ/L (21-32); CHLORIDE LEVEL 100 MEQ/L (98-107); CREATININE FOR GFR 6.21 MG/DL (0.70-1.30); GLOMERULAR FILTRATION RATE 9.6 (>49); GLUCOSE, FASTING 224 MG/DL (70-100); PHOSPHORUS LEVEL 3.4 MG/DL (2.5-4.9); POTASSIUM SERUM 3.9 MEQ/L (3.5-5.1); SODIUM LEVEL 135 MEQ/L (136-145)
[2018-06-30] MEDS: DOCUSATE SODIUM 100 MG CAP PO (09:17)
[2018-06-30] MEDS: cloNIDine 0.1 MG TAB PO (09:17)
[2018-06-30] MEDS: ASPIRIN 81 MG ENTERIC TAB PO (09:17)
[2018-06-30] MEDS: SENOKOT S TAB PO (09:17)
[2018-06-30] MEDS: SPIRONOLACTONE 25 MG TAB PO ×2 (09:17→16:57)
[2018-06-30] MEDS: PANTOPRAZOLE 40MG TAB (PROTONIX) PO (09:17)
[2018-06-30] MEDS: CitaloPRAM (CeleXA) 20 MG TAB PO (09:18)
[2018-06-30] MEDS: **hydrALAZINE HCL** 25 MG TAB PO ×2 (09:18→16:57)
[2018-06-30] MEDS: ATORVASTATIN 20 MG TAB PO (12:44)
[2018-06-30 16:41] LABS: BEDSIDE GLUCOSE 245 MG/DL (80-115)
[2018-07-02] MEDS ORDERED: VITAMIN D 50,000 UNITS CAPSULE (ERGOCALCIFEROL 1.25MG) PO (09:00)
== END 2018-06-30 20:25 | disposition home or self-care (01) | DRG 907 ==
LOC: M IRPRO 06:19 → M MSPAV 06-28 20:33 → M ICU 14:15
PROVIDERS: Surgery Vascular Surgery
PROC: 30233N1 Transfusion of Nonautologous Red Blood Cells into Peripheral Vein, Percutaneous Approach (ICD-10-PCS; 2018-06-27 08:55)
PROC: 04CL3ZZ Extirpation of Matter from Left Femoral Artery, Percutaneous Approach (ICD-10-PCS; 2018-06-27 08:55)
PROC: 047L3ZZ Dilation of Left Femoral Artery, Percutaneous Approach (ICD-10-PCS; 2018-06-27 08:55)
PROC: 5A1D70Z Performance of Urinary Filtration, Intermittent, Less than 6 Hours Per Day (ICD-10-PCS; principal; 2018-06-27 09:25)
DX: I97.620 Postprocedural hemorrhage of a circulatory system organ or structure following other procedure (principal); N18.6 End stage renal disease; T81.718A Complication of other artery following a procedure, not elsewhere classified, initial encounter; I12.0 Hypertensive chronic kidney disease with stage 5 chronic kidney disease or end stage renal disease; D62 Acute posthemorrhagic anemia; E87.1 Hypo-osmolality and hyponatremia; I70.712 Atherosclerosis of other type of bypass graft(s) of the extremities with intermittent claudication, left leg; E11.22 Type 2 diabetes mellitus with diabetic chronic kidney disease; I25.10 Atherosclerotic heart disease of native coronary artery without angina pectoris; D63.1 Anemia in chronic kidney disease; I25.2 Old myocardial infarction; D50.9 Iron deficiency anemia, unspecified; Z89.421 Acquired absence of other right toe(s); Z87.891 Personal history of nicotine dependence; Z88.2 Allergy status to sulfonamides; Z88.6 Allergy status to analgesic agent; Z88.8 Allergy status to other drugs, medicaments and biological substances; Z88.1 Allergy status to other antibiotic agents; Z79.82 Long term (current) use of aspirin; Z79.4 Long term (current) use of insulin; Z79.899 Other long term (current) drug therapy; Z99.2 Dependence on renal dialysis

== ENCOUNTER 2018-07-18 09:40 | Day surgery (SDC) | payer MEDICARE ==
[~2018-07-18 09:40] MED LIST changes: +MIDAZOLAM INJ 2 MG/2 ML VIAL (J2250) As Ordered; +ONDANSETRON 4MG/2ML VIAL (J2405) As Ordered; +dexameTHASONE 4 MG/ML 1ML VIAL (J1100) As Ordered; +fentaNYL 100 MCG/2 ML INJECTION (J3010) As Ordered
[2018-07-18] MEDS ORDERED: LR 1,000 ML IV (09:45)
[2018-07-18 10:18] LABS: BEDSIDE GLUCOSE 111 MG/DL (80-115)
[2018-07-18 10:30] LABS: POTASSIUM SERUM 3.1 MEQ/L (3.5-5.1)
[2018-07-18] MEDS: BUPIVACAINE HCL 0.5% 30 ML VIAL As Ordered (10:49)
[2018-07-18] MEDS: LIDOCAINE 1% SDV INJ 30 ML VIAL As Ordered (10:49)
== END 2018-07-18 11:50 | disposition home or self-care (01) ==
LOC: M SDC 09:40
DX: T81.31XA Disruption of external operation (surgical) wound, not elsewhere classified, initial encounter (principal); E11.9 Type 2 diabetes mellitus without complications; Z79.4 Long term (current) use of insulin; I25.2 Old myocardial infarction; E78.5 Hyperlipidemia, unspecified; I10 Essential (primary) hypertension; I25.10 Atherosclerotic heart disease of native coronary artery without angina pectoris; K21.9 Gastro-esophageal reflux disease without esophagitis; Z88.2 Allergy status to sulfonamides; Z88.8 Allergy status to other drugs, medicaments and biological substances; Z79.82 Long term (current) use of aspirin; Z87.891 Personal history of nicotine dependence
CPT/HCPCS: 11043

== ENCOUNTER 2018-07-24 18:55 | Inpatient (IN) | payer MEDICARE ==
[2018-07-24] MEDS: EPINEPHrine 1MG/10ML SYRINGE 1.5IN IV (18:57)
[2018-07-24] MEDS ORDERED: MIDAZOLAM INJ 2 MG/2 ML VIAL (J2250) As Ordered (19:04)
[2018-07-24] MEDS: MIDAZOLAM INJ 2 MG/2 ML VIAL (J2250) IV (19:05)
[2018-07-24] MEDS ORDERED: MORPHINE 2 MG/ML 1ML SYRINGE (J2270) As Ordered (19:31)
[2018-07-24] MEDS: ATROPINE SULF 0.4 MG/ML 1ML VIAL (J0461) IV (19:37)
[2018-07-24] MEDS: MORPHINE 2 MG/ML 1ML SYRINGE (J2270) IV ×3 (19:37→21:09)
[2018-07-24] MEDS ORDERED: EPINEPHrine 1MG/10ML SYRINGE 1.5IN (19:45)
[2018-07-24 19:51] LABS: BASO # 0.1 10^3/uL (0.0-0.2); BASO % 0.7 % (0.0-1.0); EOS # 0.1 10^3/uL (0.0-0.50); EOS % 1.3 % (0.0-3.0); HEMATOCRIT 34.3 % (42.0-52.0); HEMOGLOBIN 10.9 g/dl (13.5-17.5); LYMPH # 2.8 10^3/uL (1.5-4.5); LYMPH % 30.8 % (24.0-44.0); MEAN CORPUSCULAR HEMOGLOBIN 33.3 pg (27.0-33.0); MEAN CORPUSCULAR HGB CONC 31.8 g/dl (32.0-36.5); MEAN CORPUSCULAR VOLUME 104.9 fl (80.0-96.0); MONO # 1.1 10^3/uL (0.0-0.8); MONO % 12.5 % (0.0-5.0); NEUTROPHILS # 4.8 10^3/uL (1.8-7.7); NEUTROPHILS % 53.7 % (36.0-66.0); PLATELET COUNT, AUTOMATED 259 10^3/uL (150-450); RED BLOOD COUNT 3.27 10^6/uL (4.30-6.10); RED CELL DISTRIBUTION WIDTH 16.2 % (11.5-14.5)
[2018-07-24 19:52] LABS: BEDSIDE GLUCOSE 187 MG/DL (80-115)
[2018-07-24 20:03] LABS: INR 1.03; PROTHROMBIN TIME 13.6 SECONDS (12.1-14.4)
[2018-07-24 20:06] LABS: LACTIC ACID SEPSIS PROTOCOL 8.1 MMOL/L (0.4-2.0)
[2018-07-24] MEDS: ACETAMINOPHEN 650 MG SUPP PR (20:14)
[2018-07-24 20:16] LABS: ALBUMIN 2.9 GM/DL (3.2-5.2); ALBUMIN/GLOBULIN RATIO 0.74 (1.00-1.93); ALKALINE PHOSPHATASE 79 U/L (45-117); ALT/SGPT 48 U/L (12-78); ANION GAP 16 MEQ/L (8-16); AST/SGOT 53 U/L (7-37); BILIRUBIN,DIRECT 0.1 MG/DL (0.0-0.2); BILIRUBIN,TOTAL 0.4 MG/DL (0.2-1.0); BLOOD UREA NITROGEN 15 MG/DL (7-18); CALCIUM LEVEL 8.4 MG/DL (8.8-10.2); CARBON DIOXIDE LEVEL 25 MEQ/L (21-32); CHLORIDE LEVEL 98 MEQ/L (98-107); CPK CREATINE PHOSPHOKINASE 75 U/L (39-308); CREATININE FOR GFR 3.07 MG/DL (0.70-1.30); GLOMERULAR FILTRATION RATE 21.7 (>49); GLUCOSE, FASTING 115 MG/DL (70-100); NT-PRO BNP 11629 PG/ML (<125); POTASSIUM SERUM 3.1 MEQ/L (3.5-5.1); SODIUM LEVEL 139 MEQ/L (136-145); TOTAL PROTEIN 6.8 GM/DL (6.4-8.2); TROPONIN I 0.08 NG/ML (< 0.10)
[2018-07-24] MEDS: LORazepam 2 MG/ML VIAL (J2060) IV ×2 (21:14→21:58)
[2018-07-25] MEDS: MORPHINE 4 MG/ML 1ML VIAL/SYRINGE (J2270) IV ×2 (00:51→21:43)
[2018-07-25] MEDS: LORazepam 2 MG/ML VIAL (J2060) IV (04:40)
[2018-07-25] MEDS ORDERED: VANCOMYCIN HCL 500 MG in D5W MINI-BAG PLUS 100 ML IV (05:45)
[2018-07-25] MEDS ORDERED: LORazepam 2 MG/ML VIAL (J2060) IV (06:00)
[2018-07-25] MEDS: HumaLOG INSULIN (NovoLOG) PER UNIT SC ×3 (06:00→18:00)
[2018-07-25] MEDS ORDERED: GLUCOSE 4 GM CHEW TABLET PO (06:00)
[2018-07-25] MEDS ORDERED: GLUCAGON FOR INJ 1 MG VIAL (J1610) SC (06:00)
[2018-07-25] MEDS: NS 1,000 ML IV (06:27)
[2018-07-25 06:28] LABS: BEDSIDE GLUCOSE 161 MG/DL (80-115)
[2018-07-25] MEDS: VANCOMYCIN HCL 1,000 MG, VIAL MATE ADAPTER 1 EACH in D5W 250 ML IV (06:28)
[2018-07-25 07:16] LABS: BASO # 0.1 10^3/uL (0.0-0.2); EOS % 0.6 % (0.0-3.0); HEMATOCRIT 28.3 % (42.0-52.0); HEMOGLOBIN 9.3 g/dl (13.5-17.5); IMMATURE GRANULOCYTE % 0.6 % (0-3.0); LYMPH # 0.7 10^3/uL (1.5-4.5); LYMPH % 15.1 % (24.0-44.0); MEAN CORPUSCULAR HEMOGLOBIN 33.6 pg (27.0-33.0); MEAN CORPUSCULAR HGB CONC 32.9 g/dl (32.0-36.5); MEAN CORPUSCULAR VOLUME 102.2 fl (80.0-96.0); MONO # 0.8 10^3/uL (0.0-0.8); MONO % 16.3 % (0.0-5.0); NEUTROPHILS # 3.2 10^3/uL (1.8-7.7); NEUTROPHILS % 66.4 % (36.0-66.0); PLATELET COUNT, AUTOMATED 200 10^3/uL (150-450); RED BLOOD COUNT 2.77 10^6/uL (4.30-6.10); RED CELL DISTRIBUTION WIDTH 16.3 % (11.5-14.5); WHITE BLOOD COUNT 4.8 10^3/uL (4.0-10.0)
[2018-07-25 07:47] LABS: ALBUMIN 2.6 GM/DL (3.2-5.2); ALBUMIN/GLOBULIN RATIO 0.65 (1.00-1.93); ALKALINE PHOSPHATASE 71 U/L (45-117); ALT/SGPT 96 U/L (12-78); ANION GAP 9 MEQ/L (8-16); AST/SGOT 89 U/L (7-37); BILIRUBIN,TOTAL 0.5 MG/DL (0.2-1.0); BLOOD UREA NITROGEN 28 MG/DL (7-18); CALCIUM LEVEL 8.1 MG/DL (8.8-10.2); CARBON DIOXIDE LEVEL 31 MEQ/L (21-32); CHLORIDE LEVEL 97 MEQ/L (98-107); CREATININE FOR GFR 4.47 MG/DL (0.70-1.30); GLOMERULAR FILTRATION RATE 14.1 (>49); GLUCOSE, FASTING 172 MG/DL (70-100); POTASSIUM SERUM 3.8 MEQ/L (3.5-5.1); SODIUM LEVEL 137 MEQ/L (136-145); TOTAL PROTEIN 6.6 GM/DL (6.4-8.2)
[2018-07-25] MEDS ORDERED: PIPERACILLIN/TAZOBACTAM SOD 2.25 GM in D5W MINI-BAG PLUS 50 ML IV (08:00)
[2018-07-25 08:51] LABS: LACTIC ACID SEPSIS PROTOCOL 1.4 MMOL/L (0.4-2.0)
[2018-07-25] MEDS: PIPERACILLIN/TAZOBACTAM SOD 2.25 GM in D5W MINI-BAG PLUS 50 ML IV ×2 (08:52→16:10)
[2018-07-25 09:15] LABS: CPK CREATINE PHOSPHOKINASE 407 U/L (39-308); MB/CK RELATIVE INDEX 1.62 (< OR =4)
[2018-07-25 09:20] LABS: ABG BASE EXCESS 6.2 (-2.0-2.0); ABG HCO3 29.7 MEQ/L (22.0-26.0); ABG O2 SATURATION 97.2 % (95.0-99.0); ABG PARTIAL PRESSURE CO2 38.2 mmHg (35.0-45.0); ABG PARTIAL PRESSURE O2 86.8 mmHg (75.0-100.0); ABG STANDARD HCO3 30.1 MEQ/L (22.0-26.0); ABG TOTAL CO2 30.8 MEQ/L (23.0-31.0); ABG pH (ARTERIAL) 7.508 UNITS (7.350-7.450)
[2018-07-25] MEDS ORDERED: ISOVUE-370 76% 100ML VIAL (Q9967) As Ordered ×2 (09:49→10:12)
[2018-07-25] MEDS: THIAMINE HCL 200 MG/2 ML VIAL (J3411) IV (11:09)
[2018-07-25 11:19] LABS: BEDSIDE GLUCOSE 222 MG/DL (80-115)
[2018-07-25] MEDS: hydrALAZINE INJ 20 MG/ML VIAL IV ×2 (11:47→19:51)
[2018-07-25] MEDS: ACETAMINOPHEN TAB 650MG DOSE (2X325MG) PO ×2 (11:48→19:42)
[2018-07-25] MEDS: FERROUS SULFATE 325MG TAB PO (12:37)
[2018-07-25] MEDS: cloNIDine 0.1 MG TAB PO ×2 (12:37→21:44)
[2018-07-25] MEDS: PANTOPRAZOLE 40MG TAB (PROTONIX) PO ×2 (12:37→21:43)
[2018-07-25] MEDS: ATORVASTATIN 20 MG TAB PO (12:38)
[2018-07-25] MEDS: ASPIRIN 81 MG ENTERIC TAB PO (13:20)
[2018-07-25] MEDS: CLOPIDOGREL 75 MG TAB PO (13:20)
[2018-07-25 15:13] LABS: CPK CREATINE PHOSPHOKINASE 431 U/L (39-308); MB/CK RELATIVE INDEX 1.04 (< OR =4); TROPONIN I 0.36 NG/ML (< 0.10)
[2018-07-25 16:13] LABS: APPEARANCE, URINE CLEAR (CLEAR); BACTERIA, URINE AUTO NEGATIVE (NEGATIVE); BILIRUBIN, URINE AUTO NEGATIVE (NEGATIVE); BLOOD, URINE BLOOD NEGATIVE (NEGATIVE); COLOR, URINE YELLOW (YELLOW); GLUCOSE, URINE (UA) AUTO 1+ mg/dL (NEGATIVE); KETONE, URINE AUTO NEGATIVE (NEGATIVE); LEUKOCYTE ESTERASE, URINE AUTO NEGATIVE (NEGATIVE); MUCUS, URINE SMALL (NEGATIVE); NITRITE, URINE AUTO NEGATIVE (NEGATIVE); PROTEIN, URINE AUTO 3+ mg/dL (NEGATIVE); RBC, URINE AUTO 1 /HPF (0-3); SPECIFIC GRAVITY URINE AUTO 1.027 (1.002-1.035); SQUAMOUS EPITHELIAL CELL UR AU 0 /HPF (0-6); UROBILINOGEN, URINE AUTO 0.2 mg/dL (0.0-2.0); WBC, URINE AUTO 1 /HPF (0-3)
[2018-07-25 18:10] LABS: BEDSIDE GLUCOSE 177 MG/DL (80-115)
[2018-07-25 22:35] LABS: CPK CREATINE PHOSPHOKINASE 362 U/L (39-308); MB/CK RELATIVE INDEX 1.16 (< OR =4); TROPONIN I 0.25 NG/ML (< 0.10)
[2018-07-25 22:49] LABS: BEDSIDE GLUCOSE 191 MG/DL (80-115)
[2018-07-26] MEDS: PIPERACILLIN/TAZOBACTAM SOD 2.25 GM in D5W MINI-BAG PLUS 50 ML IV ×3 (01:25→20:31)
[2018-07-26] MEDS: MORPHINE 4 MG/ML 1ML VIAL/SYRINGE (J2270) IV ×5 (01:28→20:30)
[2018-07-26 04:20] LABS: BASO # 0.1 10^3/uL (0.0-0.2); BASO % 1.3 % (0.0-1.0); EOS # 0.2 10^3/uL (0.0-0.50); EOS % 5.1 % (0.0-3.0); HEMATOCRIT 27.8 % (42.0-52.0); HEMOGLOBIN 9.3 g/dl (13.5-17.5); IMMATURE GRANULOCYTE % 0.4 % (0-3.0); LYMPH # 0.7 10^3/uL (1.5-4.5); LYMPH % 16.2 % (24.0-44.0); MEAN CORPUSCULAR HEMOGLOBIN 33.9 pg (27.0-33.0); MEAN CORPUSCULAR HGB CONC 33.5 g/dl (32.0-36.5); MEAN CORPUSCULAR VOLUME 101.5 fl (80.0-96.0); MONO # 0.8 10^3/uL (0.0-0.8); MONO % 17.3 % (0.0-5.0); NEUTROPHILS # 2.7 10^3/uL (1.8-7.7); NEUTROPHILS % 59.7 % (36.0-66.0); PLATELET COUNT, AUTOMATED 178 10^3/uL (150-450); RED BLOOD COUNT 2.74 10^6/uL (4.30-6.10); RED CELL DISTRIBUTION WIDTH 16.4 % (11.5-14.5); WHITE BLOOD COUNT 4.5 10^3/uL (4.0-10.0)
[2018-07-26 04:43] LABS: ALBUMIN 2.5 GM/DL (3.2-5.2); ALBUMIN/GLOBULIN RATIO 0.68 (1.00-1.93); ALKALINE PHOSPHATASE 68 U/L (45-117); ALT/SGPT 86 U/L (12-78); ANION GAP 9 MEQ/L (8-16); AST/SGOT 79 U/L (7-37); BILIRUBIN,TOTAL 0.5 MG/DL (0.2-1.0); BLOOD UREA NITROGEN 40 MG/DL (7-18); CALCIUM LEVEL 8.2 MG/DL (8.8-10.2); CARBON DIOXIDE LEVEL 29 MEQ/L (21-32); CHLORIDE LEVEL 95 MEQ/L (98-107); CREATININE FOR GFR 6.48 MG/DL (0.70-1.30); GLOMERULAR FILTRATION RATE 9.2 (>49); GLUCOSE, FASTING 168 MG/DL (70-100); POTASSIUM SERUM 3.9 MEQ/L (3.5-5.1); SODIUM LEVEL 133 MEQ/L (136-145); TOTAL PROTEIN 6.2 GM/DL (6.4-8.2)
[2018-07-26] MEDS: VANCOMYCIN HCL 1,000 MG, VIAL MATE ADAPTER 1 EACH in D5W 250 ML IV (05:59)
[2018-07-26] MEDS ORDERED: DARBEPOETIN 100 MCG/0.5 ML *DIALYSIS* SYRINGE (J0882) IV (08:00)
[2018-07-26] MEDS: FERROUS SULFATE 325MG TAB PO (09:21)
[2018-07-26] MEDS: CALCITRIOL 0.25 MCG CAP (S0169) PO (09:21)
[2018-07-26] MEDS: CLOPIDOGREL 75 MG TAB PO (09:21)
[2018-07-26] MEDS: PANTOPRAZOLE 40MG TAB (PROTONIX) PO ×2 (09:21→20:31)
[2018-07-26] MEDS: THIAMINE HCL 200 MG/2 ML VIAL (J3411) IV (09:21)
[2018-07-26] MEDS: ASPIRIN 81 MG ENTERIC TAB PO (09:21)
[2018-07-26] MEDS: ATORVASTATIN 20 MG TAB PO (09:22)
[2018-07-26] MEDS: cloNIDine 0.1 MG TAB PO ×2 (11:31→20:31)
[2018-07-26] MEDS: PERCOCET 5MG/325MG TAB PO (16:34)
[2018-07-26 16:40] LABS: BEDSIDE GLUCOSE 281 MG/DL (80-115)
[2018-07-26 21:02] LABS: BEDSIDE GLUCOSE 483 MG/DL (80-115)
[2018-07-26] MEDS: HumaLOG INSULIN (NovoLOG) PER UNIT SC (21:44)
[2018-07-27] MEDS: PERCOCET 5MG/325MG TAB PO ×3 (00:21→16:01)
[2018-07-27 00:28] LABS: BEDSIDE GLUCOSE 533 MG/DL (80-115)
[2018-07-27] MEDS: HumaLOG INSULIN (NovoLOG) PER UNIT SC ×3 (01:26→21:00)
[2018-07-27] MEDS: MORPHINE 4 MG/ML 1ML VIAL/SYRINGE (J2270) IV ×3 (03:46→15:20)
[2018-07-27] MEDS: PIPERACILLIN/TAZOBACTAM SOD 2.25 GM in D5W MINI-BAG PLUS 50 ML IV (03:57)
[2018-07-27 04:24] LABS: BEDSIDE GLUCOSE 539 MG/DL (80-115)
[2018-07-27 04:31] LABS: BASO # 0.1 10^3/uL (0.0-0.2); BASO % 1.1 % (0.0-1.0); EOS # 0.2 10^3/uL (0.0-0.50); EOS % 3.4 % (0.0-3.0); HEMATOCRIT 25.8 % (42.0-52.0); HEMOGLOBIN 8.4 g/dl (13.5-17.5); IMMATURE GRANULOCYTE % 0.5 % (0-3.0); LYMPH % 22.3 % (24.0-44.0); MEAN CORPUSCULAR HEMOGLOBIN 33.3 pg (27.0-33.0); MEAN CORPUSCULAR HGB CONC 32.6 g/dl (32.0-36.5); MEAN CORPUSCULAR VOLUME 102.4 fl (80.0-96.0); MONO # 0.7 10^3/uL (0.0-0.8); MONO % 15.9 % (0.0-5.0); NEUTROPHILS # 2.5 10^3/uL (1.8-7.7); NEUTROPHILS % 56.8 % (36.0-66.0); PLATELET COUNT, AUTOMATED 169 10^3/uL (150-450); RED BLOOD COUNT 2.52 10^6/uL (4.30-6.10); WHITE BLOOD COUNT 4.4 10^3/uL (4.0-10.0)
[2018-07-27 05:09] LABS: ALBUMIN 2.6 GM/DL (3.2-5.2); ALBUMIN/GLOBULIN RATIO 0.74 (1.00-1.93); ALKALINE PHOSPHATASE 68 U/L (45-117); ALT/SGPT 68 U/L (12-78); ANION GAP 18 MEQ/L (8-16); AST/SGOT 50 U/L (7-37); BILIRUBIN,TOTAL 0.5 MG/DL (0.2-1.0); BLOOD UREA NITROGEN 41 MG/DL (7-18); CALCIUM LEVEL 7.9 MG/DL (8.8-10.2); CARBON DIOXIDE LEVEL 22 MEQ/L (21-32); CHLORIDE LEVEL 89 MEQ/L (98-107); CREATININE FOR GFR 5.51 MG/DL (0.70-1.30); GLOMERULAR FILTRATION RATE 11.1 (>49); GLUCOSE, FASTING 564 MG/DL (70-100); POTASSIUM SERUM 4.2 MEQ/L (3.5-5.1); SODIUM LEVEL 129 MEQ/L (136-145); TOTAL PROTEIN 6.1 GM/DL (6.4-8.2)
[2018-07-27 07:39] LABS: BEDSIDE GLUCOSE 476 MG/DL (80-115)
[2018-07-27] MEDS ORDERED: MEROPENEM INJ 0.5 GM in APPROPRIATE DILUENT 1 EA IV (07:45)
[2018-07-27] MEDS ORDERED: INSULIN IV RATE CHANGE DOCUMENTATION ML/HR XX (08:00)
[2018-07-27] MEDS ORDERED: INSULIN HUMAN REGULAR 100 UNITS in NS 99 ML IV (08:00)
[2018-07-27 08:17] LABS: VENOUS BASE EXCESS 0.2 (-2.0-2.0); VENOUS HCO3 25.3 MEQ/L (23.0-27.0); VENOUS O2 SATURATION 92.2 % (60.0-80.0); VENOUS PH 7.388 UNITS (7.330-7.430); VENOUS STANDARD HCO3 24.6 MEQ/L; VENOUS TOTAL CO2 26.6 MEQ/L (24.0-28.0)
[2018-07-27 08:53] LABS: ANION GAP 15 MEQ/L (8-16); BLOOD UREA NITROGEN 44 MG/DL (7-18); CALCIUM LEVEL 7.7 MG/DL (8.8-10.2); CARBON DIOXIDE LEVEL 25 MEQ/L (21-32); CHLORIDE LEVEL 90 MEQ/L (98-107); CREATININE FOR GFR 5.98 MG/DL (0.70-1.30); GLOMERULAR FILTRATION RATE 10.1 (>49); GLUCOSE, FASTING 519 MG/DL (70-100); POTASSIUM SERUM 4.3 MEQ/L (3.5-5.1); SODIUM LEVEL 130 MEQ/L (136-145)
[2018-07-27] MEDS: cloNIDine 0.1 MG TAB PO ×2 (09:00→12:26)
[2018-07-27] MEDS: PANTOPRAZOLE 40MG TAB (PROTONIX) PO (09:22)
[2018-07-27] MEDS: FERROUS SULFATE 325MG TAB PO (09:22)
[2018-07-27] MEDS: SPIRONOLACTONE 25 MG TAB PO ×2 (09:22→16:00)
[2018-07-27] MEDS: THIAMINE HCL 200 MG/2 ML VIAL (J3411) IV (09:23)
[2018-07-27] MEDS: ATORVASTATIN 20 MG TAB PO (09:23)
[2018-07-27] MEDS: ASPIRIN 81 MG ENTERIC TAB PO (09:23)
[2018-07-27] MEDS: CLOPIDOGREL 75 MG TAB PO (09:23)
[2018-07-27] MEDS: **hydrALAZINE HCL** 25 MG TAB PO ×2 (09:23→16:00)
[2018-07-27] MEDS: CitaloPRAM (CeleXA) 20 MG TAB PO (09:23)
[2018-07-27] MEDS: INSULIN HUMAN REGULAR 100 UNITS in NS 99 ML IV (09:26)
[2018-07-27 09:28] LABS: BEDSIDE GLUCOSE 451 MG/DL (80-115)
[2018-07-27] MEDS: MEROPENEM INJ 500 MG in APPROPRIATE DILUENT 1 EA IV (10:28)
[2018-07-27] MEDS: INSULIN IV RATE CHANGE DOCUMENTATION ML/HR XX ×3 (10:33→15:11)
[2018-07-27 10:34] LABS: BEDSIDE GLUCOSE 421 MG/DL (80-115)
[2018-07-27 11:38] LABS: BEDSIDE GLUCOSE 358 MG/DL (80-115)
[2018-07-27 11:42] LABS: BEDSIDE GLUCOSE 346 MG/DL (80-115)
[2018-07-27 12:27] LABS: ANION GAP 11 MEQ/L (8-16); BLOOD UREA NITROGEN 47 MG/DL (7-18); CALCIUM LEVEL 7.9 MG/DL (8.8-10.2); CARBON DIOXIDE LEVEL 29 MEQ/L (21-32); CHLORIDE LEVEL 91 MEQ/L (98-107); CREATININE FOR GFR 6.36 MG/DL (0.70-1.30); GLOMERULAR FILTRATION RATE 9.4 (>49); GLUCOSE, FASTING 391 MG/DL (70-100); POTASSIUM SERUM 4.2 MEQ/L (3.5-5.1); SODIUM LEVEL 131 MEQ/L (136-145)
[2018-07-27 12:29] LABS: BEDSIDE GLUCOSE 352 MG/DL (80-115)
[2018-07-27 13:39] LABS: BEDSIDE GLUCOSE 305 MG/DL (80-115)
[2018-07-27 15:12] LABS: BEDSIDE GLUCOSE 282 MG/DL (80-115)
[2018-07-27] MEDS: HEPARIN SOD (PORCINE) 5000 UNITS/ML VIAL SQ ×2 (15:19→21:17)
[2018-07-27 16:06] LABS: BEDSIDE GLUCOSE 238 MG/DL (80-115)
[2018-07-27 16:18] LABS: ANION GAP 9 MEQ/L (8-16); BLOOD UREA NITROGEN 49 MG/DL (7-18); CALCIUM LEVEL 8.1 MG/DL (8.8-10.2); CARBON DIOXIDE LEVEL 30 MEQ/L (21-32); CHLORIDE LEVEL 93 MEQ/L (98-107); CREATININE FOR GFR 6.61 MG/DL (0.70-1.30); GLUCOSE, FASTING 248 MG/DL (70-100); SODIUM LEVEL 132 MEQ/L (136-145)
[2018-07-27 17:07] LABS: BEDSIDE GLUCOSE 195 MG/DL (80-115)
[2018-07-27] MEDS ORDERED: fentaNYL 100 MCG/2 ML INJECTION (J3010) As Ordered (17:45)
[2018-07-27] MEDS ORDERED: MIDAZOLAM INJ 2 MG/2 ML VIAL (J2250) As Ordered (17:45)
[2018-07-27] MEDS ORDERED: FENTANYL 2MCG/ML BUPIVACAINE 0.0625% NACL 250ML IV BAG As Ordered (17:52)
[2018-07-27 17:58] LABS: BEDSIDE GLUCOSE 173 MG/DL (80-115)
[2018-07-27] MEDS ORDERED: LIDOCAINE 5% (LIDODERM) PATCH TD (18:00)
[2018-07-27] MEDS: ePHEDrine SULFATE 25 MG/5 ML(5MG/ML) SYRINGE IV (18:35)
[2018-07-27] MEDS: PHENYLephrine HCL 500 MCG/5 ML (100MCG/ML) SYRINGE (J2370) IV (18:40)
[2018-07-27] MEDS ORDERED: ePHEDrine INJ 50 MG/ML VIAL As Ordered (18:46)
[2018-07-27] MEDS ORDERED: PHENYLEPHRINE INJ 10MG/ML VIAL (J2370) As Ordered (18:46)
[2018-07-27] MEDS ORDERED: PHENYLephrine HCL 500 MCG/5 ML (100MCG/ML) SYRINGE (J2370) As Ordered (18:49)
[2018-07-27] MEDS: SODIUM CHLORIDE 0.9% 1000ML IV (19:00)
[2018-07-27] MEDS ORDERED: ONDANSETRON 4MG/2ML VIAL (J2405) IV (19:15)
[2018-07-27] MEDS: FENTANYL/BUPIVACAINE/NACL BAG 250 ML EPIDURAL ×2 (19:15→20:00)
[2018-07-27] MEDS ORDERED: NALOXONE INJ 0.4 MG/1 ML VIAL (J2310) IV (19:15)
[2018-07-27] MEDS ORDERED: EPIDURAL/PCA KEYS XX (19:15)
[2018-07-27] MEDS ORDERED: WALLBOXKEY XX (19:15)
[2018-07-27] MEDS ORDERED: METOCLOPRAMIDE INJ 10MG/2ML VIAL (J2765) IV (19:15)
[2018-07-27 19:16] LABS: BEDSIDE GLUCOSE 162 MG/DL (80-115)
[2018-07-27 20:25] LABS: ANION GAP 11 MEQ/L (8-16); BLOOD UREA NITROGEN 51 MG/DL (7-18); CARBON DIOXIDE LEVEL 28 MEQ/L (21-32); CHLORIDE LEVEL 95 MEQ/L (98-107); CREATININE FOR GFR 6.96 MG/DL (0.70-1.30); GLOMERULAR FILTRATION RATE 8.5 (>49); GLUCOSE, FASTING 164 MG/DL (70-100); POTASSIUM SERUM 3.7 MEQ/L (3.5-5.1); SODIUM LEVEL 134 MEQ/L (136-145)
[2018-07-27] MEDS ORDERED: **NOTE PATIENT COMMENT** MISC XX (21:00)
[2018-07-27 21:03] LABS: BEDSIDE GLUCOSE 165 MG/DL (80-115)
[2018-07-27] MEDS: LEVEMIR (INSULIN DETEMIR) 1 UNITS/0.01ML SC (21:17)
[2018-07-28] MEDS: PERCOCET 5MG/325MG TAB PO (00:46)
[2018-07-28] MEDS: cloNIDine 0.1 MG TAB PO ×2 (00:49→21:40)
[2018-07-28] MEDS: PANTOPRAZOLE 40MG TAB (PROTONIX) PO ×3 (00:49→20:22)
[2018-07-28 04:19] LABS: BASO % 0.5 % (0.0-1.0); EOS # 0.2 10^3/uL (0.0-0.50); HEMATOCRIT 27.6 % (42.0-52.0); HEMOGLOBIN 9.3 g/dl (13.5-17.5); IMMATURE GRANULOCYTE % 0.8 % (0-3.0); MEAN CORPUSCULAR HEMOGLOBIN 33.3 pg (27.0-33.0); MEAN CORPUSCULAR HGB CONC 33.7 g/dl (32.0-36.5); MEAN CORPUSCULAR VOLUME 98.9 fl (80.0-96.0); MONO # 0.8 10^3/uL (0.0-0.8); MONO % 11.8 % (0.0-5.0); NEUTROPHILS # 4.4 10^3/uL (1.8-7.7); NEUTROPHILS % 68.9 % (36.0-66.0); PLATELET COUNT, AUTOMATED 198 10^3/uL (150-450); RED BLOOD COUNT 2.79 10^6/uL (4.30-6.10); RED CELL DISTRIBUTION WIDTH 15.5 % (11.5-14.5); WHITE BLOOD COUNT 6.4 10^3/uL (4.0-10.0)
[2018-07-28 04:56] LABS: ALBUMIN 2.7 GM/DL (3.2-5.2); ALBUMIN/GLOBULIN RATIO 0.61 (1.00-1.93); ALKALINE PHOSPHATASE 80 U/L (45-117); ALT/SGPT 60 U/L (12-78); ANION GAP 12 MEQ/L (8-16); AST/SGOT 44 U/L (7-37); BILIRUBIN,TOTAL 0.3 MG/DL (0.2-1.0); BLOOD UREA NITROGEN 51 MG/DL (7-18); CALCIUM LEVEL 8.2 MG/DL (8.8-10.2); CARBON DIOXIDE LEVEL 26 MEQ/L (21-32); CHLORIDE LEVEL 94 MEQ/L (98-107); CREATININE FOR GFR 7.74 MG/DL (0.70-1.30); GLOMERULAR FILTRATION RATE 7.5 (>49); GLUCOSE, FASTING 115 MG/DL (70-100); POTASSIUM SERUM 3.6 MEQ/L (3.5-5.1); SODIUM LEVEL 132 MEQ/L (136-145); TOTAL PROTEIN 7.1 GM/DL (6.4-8.2)
[2018-07-28] MEDS: HEPARIN SOD (PORCINE) 5000 UNITS/ML VIAL SQ ×3 (06:40→21:06)
[2018-07-28] MEDS: ATORVASTATIN 20 MG TAB PO (07:58)
[2018-07-28] MEDS: HumaLOG INSULIN (NovoLOG) PER UNIT SC ×4 (07:58→21:07)
[2018-07-28] MEDS: CitaloPRAM (CeleXA) 20 MG TAB PO (07:59)
[2018-07-28] MEDS: CLOPIDOGREL 75 MG TAB PO (07:59)
[2018-07-28] MEDS: FERROUS SULFATE 325MG TAB PO (07:59)
[2018-07-28] MEDS: SPIRONOLACTONE 25 MG TAB PO ×2 (07:59→18:39)
[2018-07-28] MEDS: THIAMINE HCL 200 MG/2 ML VIAL (J3411) IV (07:59)
[2018-07-28] MEDS: ASPIRIN 81 MG ENTERIC TAB PO (07:59)
[2018-07-28] MEDS: diphenhydrAMINE INJ 50MG/ML VIAL (J1200) IV ×3 (08:07→20:23)
[2018-07-28 10:14] LABS: VANCOMYCIN RANDOM 18.1 UG/ML
[2018-07-28] MEDS ORDERED: EPINEPHrine 1MG/10ML SYRINGE 1.5IN (11:08)
[2018-07-28 11:33] LABS: BEDSIDE GLUCOSE 61 MG/DL (80-115)
[2018-07-28] MEDS: VANCOMYCIN HCL 1,000 MG, VIAL MATE ADAPTER 1 EACH in D5W 250 ML IV (14:14)
[2018-07-28] MEDS: **VANCO AFTER HD** MISC XX (14:15)
[2018-07-28] MEDS: FENTANYL/BUPIVACAINE/NACL BAG 250 ML EPIDURAL (15:14)
[2018-07-28 17:02] LABS: BEDSIDE GLUCOSE 156 MG/DL (80-115)
[2018-07-28] MEDS: MEROPENEM INJ 500 MG in APPROPRIATE DILUENT 1 EA IV (18:39)
[2018-07-28] MEDS: LEVEMIR (INSULIN DETEMIR) 1 UNITS/0.01ML SC (21:00)
[2018-07-28 21:07] LABS: BEDSIDE GLUCOSE 279 MG/DL (80-115)
[2018-07-28] MEDS: MORPHINE 4 MG/ML 1ML VIAL/SYRINGE (J2270) IV (22:22)
[2018-07-29 04:59] LABS: BASO % 0.8 % (0.0-1.0); EOS # 0.2 10^3/uL (0.0-0.50); EOS % 3.1 % (0.0-3.0); HEMOGLOBIN 8.3 g/dl (13.5-17.5); IMMATURE GRANULOCYTE % 0.6 % (0-3.0); LYMPH # 0.8 10^3/uL (1.5-4.5); LYMPH % 16.7 % (24.0-44.0); MEAN CORPUSCULAR HEMOGLOBIN 33.2 pg (27.0-33.0); MEAN CORPUSCULAR HGB CONC 33.2 g/dl (32.0-36.5); MONO # 0.7 10^3/uL (0.0-0.8); MONO % 13.8 % (0.0-5.0); NEUTROPHILS # 3.1 10^3/uL (1.8-7.7); PLATELET COUNT, AUTOMATED 172 10^3/uL (150-450); RED CELL DISTRIBUTION WIDTH 15.5 % (11.5-14.5); WHITE BLOOD COUNT 4.8 10^3/uL (4.0-10.0)
[2018-07-29] MEDS: HEPARIN SOD (PORCINE) 5000 UNITS/ML VIAL SQ ×3 (05:03→21:41)
[2018-07-29 05:33] LABS: ALBUMIN 2.4 GM/DL (3.2-5.2); ALBUMIN/GLOBULIN RATIO 0.59 (1.00-1.93); ALKALINE PHOSPHATASE 77 U/L (45-117); ALT/SGPT 43 U/L (12-78); ANION GAP 8 MEQ/L (8-16); AST/SGOT 42 U/L (7-37); BILIRUBIN,TOTAL 0.4 MG/DL (0.2-1.0); BLOOD UREA NITROGEN 23 MG/DL (7-18); CALCIUM LEVEL 8.2 MG/DL (8.8-10.2); CARBON DIOXIDE LEVEL 26 MEQ/L (21-32); CHLORIDE LEVEL 101 MEQ/L (98-107); CREATININE FOR GFR 5.06 MG/DL (0.70-1.30); GLOMERULAR FILTRATION RATE 12.2 (>49); GLUCOSE, FASTING 228 MG/DL (70-100); POTASSIUM SERUM 4.2 MEQ/L (3.5-5.1); SODIUM LEVEL 135 MEQ/L (136-145); TOTAL PROTEIN 6.5 GM/DL (6.4-8.2)
[2018-07-29 07:47] LABS: BEDSIDE GLUCOSE 244 MG/DL (80-115)
[2018-07-29] MEDS: HumaLOG INSULIN (NovoLOG) PER UNIT SC ×4 (08:41→21:00)
[2018-07-29] MEDS: cloNIDine 0.1 MG TAB PO ×2 (09:13→20:16)
[2018-07-29] MEDS: CALCITRIOL 0.25 MCG CAP (S0169) PO (09:14)
[2018-07-29] MEDS: ASPIRIN 81 MG ENTERIC TAB PO (09:14)
[2018-07-29] MEDS: CitaloPRAM (CeleXA) 20 MG TAB PO (09:14)
[2018-07-29] MEDS: CLOPIDOGREL 75 MG TAB PO (09:14)
[2018-07-29] MEDS: FERROUS SULFATE 325MG TAB PO (09:14)
[2018-07-29] MEDS: PANTOPRAZOLE 40MG TAB (PROTONIX) PO ×2 (09:14→20:03)
[2018-07-29] MEDS: SPIRONOLACTONE 25 MG TAB PO ×2 (09:14→17:13)
[2018-07-29] MEDS: ATORVASTATIN 20 MG TAB PO (09:14)
[2018-07-29] MEDS: THIAMINE HCL 200 MG/2 ML VIAL (J3411) IV (09:15)
[2018-07-29 09:17] LABS: VANCOMYCIN RANDOM 24.2 UG/ML
[2018-07-29 12:15] LABS: BEDSIDE GLUCOSE 293 MG/DL (80-115)
[2018-07-29] MEDS: PERCOCET 5MG/325MG TAB PO ×2 (13:25→22:37)
[2018-07-29] MEDS ORDERED: fentaNYL 100 MCG/2 ML INJECTION (J3010) As Ordered ×2 (15:21→15:54)
[2018-07-29] MEDS ORDERED: PROPOFOL 200 MG/20 ML VIAL As Ordered (15:21)
[2018-07-29] MEDS: NS 1,000 ML IV (15:45)
[2018-07-29] MEDS ORDERED: ONDANSETRON 4MG/2ML VIAL (J2405) IV ×2 (15:45→17:00)
[2018-07-29] MEDS: **VANCO AFTER HD** MISC XX (16:00)
[2018-07-29] MEDS: fentaNYL 100 MCG/2 ML INJECTION (J3010) IV (16:04)
[2018-07-29 16:11] LABS: BEDSIDE GLUCOSE 199 MG/DL (80-115)
[2018-07-29] MEDS ORDERED: EPIDURAL/PCA KEYS XX (17:00)
[2018-07-29] MEDS ORDERED: NALOXONE INJ 0.4 MG/1 ML VIAL (J2310) IV (17:00)
[2018-07-29] MEDS ORDERED: WALLBOXKEY XX (17:00)
[2018-07-29] MEDS ORDERED: METOCLOPRAMIDE INJ 10MG/2ML VIAL (J2765) IV (17:00)
[2018-07-29] MEDS: BUPIVACAINE/NACL BAG 250 ML EPIDURAL (17:06)
[2018-07-29] MEDS: MORPHINE 4 MG/ML 1ML VIAL/SYRINGE (J2270) IV ×3 (17:13→23:20)
[2018-07-29 17:23] LABS: BEDSIDE GLUCOSE 151 MG/DL (80-115)
[2018-07-29] MEDS: MEROPENEM INJ 500 MG in APPROPRIATE DILUENT 1 EA IV (17:46)
[2018-07-29 20:59] LABS: BEDSIDE GLUCOSE 81 MG/DL (80-115)
[2018-07-29] MEDS: LEVEMIR (INSULIN DETEMIR) 1 UNITS/0.01ML SC (21:00)
[2018-07-30] MEDS: MORPHINE 4 MG/ML 1ML VIAL/SYRINGE (J2270) IV ×3 (03:53→23:56)
[2018-07-30 04:50] LABS: BASO % 0.5 % (0.0-1.0); EOS # 0.2 10^3/uL (0.0-0.50); EOS % 5.6 % (0.0-3.0); HEMATOCRIT 25.6 % (42.0-52.0); HEMOGLOBIN 8.3 g/dl (13.5-17.5); IMMATURE GRANULOCYTE % 0.9 % (0-3.0); LYMPH # 0.9 10^3/uL (1.5-4.5); MEAN CORPUSCULAR HEMOGLOBIN 32.7 pg (27.0-33.0); MEAN CORPUSCULAR HGB CONC 32.4 g/dl (32.0-36.5); MEAN CORPUSCULAR VOLUME 100.8 fl (80.0-96.0); MONO # 0.5 10^3/uL (0.0-0.8); MONO % 11.3 % (0.0-5.0); NEUTROPHILS # 2.6 10^3/uL (1.8-7.7); NEUTROPHILS % 61.7 % (36.0-66.0); PLATELET COUNT, AUTOMATED 201 10^3/uL (150-450); RED BLOOD COUNT 2.54 10^6/uL (4.30-6.10); RED CELL DISTRIBUTION WIDTH 15.9 % (11.5-14.5); WHITE BLOOD COUNT 4.3 10^3/uL (4.0-10.0)
[2018-07-30 05:09] LABS: ALBUMIN 2.5 GM/DL (3.2-5.2); ALBUMIN/GLOBULIN RATIO 0.61 (1.00-1.93); ALKALINE PHOSPHATASE 75 U/L (45-117); ALT/SGPT 38 U/L (12-78); ANION GAP 10 MEQ/L (8-16); AST/SGOT 40 U/L (7-37); BILIRUBIN,TOTAL 0.4 MG/DL (0.2-1.0); BLOOD UREA NITROGEN 30 MG/DL (7-18); CALCIUM LEVEL 8.2 MG/DL (8.8-10.2); CARBON DIOXIDE LEVEL 24 MEQ/L (21-32); CHLORIDE LEVEL 102 MEQ/L (98-107); GLUCOSE, FASTING 164 MG/DL (70-100); POTASSIUM SERUM 4.6 MEQ/L (3.5-5.1); SODIUM LEVEL 136 MEQ/L (136-145); TOTAL PROTEIN 6.6 GM/DL (6.4-8.2); VANCOMYCIN RANDOM 21.3 UG/ML
[2018-07-30] MEDS: HEPARIN SOD (PORCINE) 5000 UNITS/ML VIAL SQ ×2 (05:14→20:10)
[2018-07-30] MEDS ORDERED: VANCOMYCIN HCL 500 MG in D5W MINI-BAG PLUS 100 ML IV (08:00)
[2018-07-30 08:26] LABS: BEDSIDE GLUCOSE 205 MG/DL (80-115)
[2018-07-30] MEDS: THIAMINE HCL 200 MG/2 ML VIAL (J3411) IV (08:40)
[2018-07-30] MEDS: HumaLOG INSULIN (NovoLOG) PER UNIT SC ×4 (08:40→20:36)
[2018-07-30] MEDS: FERROUS SULFATE 325MG TAB PO (08:42)
[2018-07-30] MEDS: ASPIRIN 81 MG ENTERIC TAB PO (08:42)
[2018-07-30] MEDS: PANTOPRAZOLE 40MG TAB (PROTONIX) PO ×2 (08:42→20:11)
[2018-07-30] MEDS: ATORVASTATIN 20 MG TAB PO (08:42)
[2018-07-30] MEDS: SPIRONOLACTONE 25 MG TAB PO ×2 (08:43→17:08)
[2018-07-30] MEDS: CLOPIDOGREL 75 MG TAB PO (08:43)
[2018-07-30] MEDS: CitaloPRAM (CeleXA) 20 MG TAB PO (08:43)
[2018-07-30] MEDS: SENOKOT S TAB PO ×2 (08:43→20:11)
[2018-07-30] MEDS: cloNIDine 0.1 MG TAB PO ×2 (08:43→20:11)
[2018-07-30] MEDS: PERCOCET 5MG/325MG TAB PO ×2 (09:37→20:13)
[2018-07-30 12:13] LABS: BEDSIDE GLUCOSE 293 MG/DL (80-115)
[2018-07-30 16:56] LABS: BEDSIDE GLUCOSE 194 MG/DL (80-115)
[2018-07-30] MEDS: BUPIVACAINE/NACL BAG 250 ML EPIDURAL (17:09)
[2018-07-30] MEDS: MEROPENEM INJ 500 MG in APPROPRIATE DILUENT 1 EA IV (20:23)
[2018-07-30 20:30] LABS: BEDSIDE GLUCOSE 152 MG/DL (80-115)
[2018-07-30] MEDS: LEVEMIR (INSULIN DETEMIR) 1 UNITS/0.01ML SC (20:36)
[2018-07-31] MEDS: hydrOXYzine 25 MG TAB PO ×2 (01:30→21:42)
[2018-07-31] MEDS: PERCOCET 5MG/325MG TAB PO ×2 (03:08→20:20)
[2018-07-31 05:14] LABS: BASO % 0.4 % (0.0-1.0); EOS # 0.2 10^3/uL (0.0-0.50); EOS % 3.4 % (0.0-3.0); IMMATURE GRANULOCYTE % 0.9 % (0-3.0); LYMPH # 0.9 10^3/uL (1.5-4.5); LYMPH % 17.5 % (24.0-44.0); MEAN CORPUSCULAR HEMOGLOBIN 33.8 pg (27.0-33.0); MEAN CORPUSCULAR HGB CONC 33.3 g/dl (32.0-36.5); MEAN CORPUSCULAR VOLUME 101.3 fl (80.0-96.0); MONO # 0.6 10^3/uL (0.0-0.8); MONO % 10.4 % (0.0-5.0); NEUTROPHILS # 3.6 10^3/uL (1.8-7.7); NEUTROPHILS % 67.4 % (36.0-66.0); PLATELET COUNT, AUTOMATED 224 10^3/uL (150-450); RED BLOOD COUNT 2.37 10^6/uL (4.30-6.10); RED CELL DISTRIBUTION WIDTH 15.9 % (11.5-14.5); WHITE BLOOD COUNT 5.3 10^3/uL (4.0-10.0)
[2018-07-31 05:38] LABS: ALBUMIN 2.5 GM/DL (3.2-5.2); ALBUMIN/GLOBULIN RATIO 0.61 (1.00-1.93); ALKALINE PHOSPHATASE 75 U/L (45-117); ALT/SGPT 37 U/L (12-78); ANION GAP 7 MEQ/L (8-16); AST/SGOT 37 U/L (7-37); BILIRUBIN,TOTAL 0.4 MG/DL (0.2-1.0); BLOOD UREA NITROGEN 20 MG/DL (7-18); CALCIUM LEVEL 8.4 MG/DL (8.8-10.2); CARBON DIOXIDE LEVEL 28 MEQ/L (21-32); CHLORIDE LEVEL 99 MEQ/L (98-107); CREATININE FOR GFR 4.39 MG/DL (0.70-1.30); GLOMERULAR FILTRATION RATE 14.4 (>49); GLUCOSE, FASTING 259 MG/DL (70-100); POTASSIUM SERUM 4.3 MEQ/L (3.5-5.1); SODIUM LEVEL 134 MEQ/L (136-145); TOTAL PROTEIN 6.6 GM/DL (6.4-8.2)
[2018-07-31 07:20] LABS: BEDSIDE GLUCOSE 282 MG/DL (80-115)
[2018-07-31] MEDS: CALCITRIOL 0.25 MCG CAP (S0169) PO (08:58)
[2018-07-31] MEDS: CitaloPRAM (CeleXA) 20 MG TAB PO (08:59)
[2018-07-31] MEDS: ASPIRIN 81 MG ENTERIC TAB PO (09:01)
[2018-07-31] MEDS: PANTOPRAZOLE 40MG TAB (PROTONIX) PO ×2 (09:02→20:20)
[2018-07-31] MEDS: SPIRONOLACTONE 25 MG TAB PO ×2 (09:02→17:01)
[2018-07-31] MEDS: FERROUS SULFATE 325MG TAB PO (09:02)
[2018-07-31] MEDS: cloNIDine 0.1 MG TAB PO (09:04)
[2018-07-31] MEDS: ATORVASTATIN 20 MG TAB PO (09:05)
[2018-07-31] MEDS: CLOPIDOGREL 75 MG TAB PO (09:06)
[2018-07-31] MEDS: SENOKOT S TAB PO ×2 (09:06→20:21)
[2018-07-31] MEDS: HumaLOG INSULIN (NovoLOG) PER UNIT SC ×4 (09:10→21:00)
[2018-07-31] MEDS: HEPARIN SOD (PORCINE) 5000 UNITS/ML VIAL SQ ×2 (09:12→20:21)
[2018-07-31] MEDS: THIAMINE HCL 200 MG/2 ML VIAL (J3411) IV (09:13)
[2018-07-31 10:08] LABS: IMMEDIATE SPIN CROSSMATCH 1 1
[2018-07-31] MEDS: **hydrALAZINE HCL** 25 MG TAB PO ×3 (11:00→20:21)
[2018-07-31 11:41] LABS: BEDSIDE GLUCOSE 364 MG/DL (80-115)
[2018-07-31 13:22] LABS: HEMATOCRIT 25.4 % (42.0-52.0); HEMOGLOBIN 8.6 g/dl (13.5-17.5); RETICULOCYTE # 54.1 10^9/L (17-77); RETICULOCYTE % 2.1 % (0.5-1.5)
[2018-07-31 13:27] LABS: REASON FOR REVIEW RBC MORPHOLOGY; SLIDE REVIEW Report; SOURCE PERIPHERAL SMEAR
[2018-07-31 13:45] LABS: BEDSIDE GLUCOSE 305 MG/DL (80-115)
[2018-07-31] MEDS: diphenhydrAMINE CREAM 30GM TOP ×2 (13:45→20:22)
[2018-07-31 13:53] LABS: FERRITIN 1738 NG/ML (26-388); IRON (FE) 89 UG/DL (65-175); PERCENT SATURATION 69.5 % (19.7-50.0); TOTAL IRON BINDING CAPACITY 128 UG/DL (250-450)
[2018-07-31 13:53] LABS: LDH LACTATE DEHYDROGENASE 287 U/L (87-241)
[2018-07-31] MEDS: diphenhydrAMINE INJ 50MG/ML VIAL (J1200) IV ×2 (15:29→23:53)
[2018-07-31 16:48] LABS: BEDSIDE GLUCOSE 232 MG/DL (80-115)
[2018-07-31] MEDS: cloNIDine 0.2 MG TAB PO ×2 (17:01→20:21)
[2018-07-31] MEDS: BUPIVACAINE/NACL BAG 250 ML EPIDURAL (17:03)
[2018-07-31] MEDS: MEROPENEM INJ 500 MG in APPROPRIATE DILUENT 1 EA IV (17:06)
[2018-07-31] MEDS: EUCERIN 120GM CREAM TOP (20:22)
[2018-07-31 20:37] LABS: BEDSIDE GLUCOSE 110 MG/DL (80-115)
[2018-07-31] MEDS: LEVEMIR (INSULIN DETEMIR) 1 UNITS/0.01ML SC (21:00)
[2018-08-01 05:08] LABS: BASO # 0.1 10^3/uL (0.0-0.2); BASO % 0.9 % (0.0-1.0); EOS # 0.3 10^3/uL (0.0-0.50); EOS % 5.5 % (0.0-3.0); HEMATOCRIT 26.2 % (42.0-52.0); HEMOGLOBIN 8.7 g/dl (13.5-17.5); IMMATURE GRANULOCYTE % 1.1 % (0-3.0); LYMPH # 1.5 10^3/uL (1.5-4.5); LYMPH % 27.8 % (24.0-44.0); MEAN CORPUSCULAR HEMOGLOBIN 31.8 pg (27.0-33.0); MEAN CORPUSCULAR HGB CONC 33.2 g/dl (32.0-36.5); MEAN CORPUSCULAR VOLUME 95.6 fl (80.0-96.0); MONO # 0.7 10^3/uL (0.0-0.8); MONO % 12.7 % (0.0-5.0); NEUTROPHILS # 2.9 10^3/uL (1.8-7.7); PLATELET COUNT, AUTOMATED 245 10^3/uL (150-450); RED BLOOD COUNT 2.74 10^6/uL (4.30-6.10); RED CELL DISTRIBUTION WIDTH 17.7 % (11.5-14.5); WHITE BLOOD COUNT 5.5 10^3/uL (4.0-10.0)
[2018-08-01 05:36] LABS: ALBUMIN 2.5 GM/DL (3.2-5.2); ALBUMIN/GLOBULIN RATIO 0.63 (1.00-1.93); ALKALINE PHOSPHATASE 73 U/L (45-117); ALT/SGPT 30 U/L (12-78); ANION GAP 8 MEQ/L (8-16); AST/SGOT 33 U/L (7-37); BILIRUBIN,TOTAL 0.4 MG/DL (0.2-1.0); BLOOD UREA NITROGEN 31 MG/DL (7-18); CALCIUM LEVEL 8.7 MG/DL (8.8-10.2); CARBON DIOXIDE LEVEL 26 MEQ/L (21-32); CHLORIDE LEVEL 103 MEQ/L (98-107); CREATININE FOR GFR 5.82 MG/DL (0.70-1.30); GLOMERULAR FILTRATION RATE 10.4 (>49); GLUCOSE, FASTING 44 MG/DL (70-100); POTASSIUM SERUM 3.8 MEQ/L (3.5-5.1); SODIUM LEVEL 137 MEQ/L (136-145); TOTAL PROTEIN 6.5 GM/DL (6.4-8.2)
[2018-08-01] MEDS: DEXTROSE 50% 50 ML SYRINGE IV (05:39)
[2018-08-01 06:10] LABS: BEDSIDE GLUCOSE 124 MG/DL (80-115)
[2018-08-01] MEDS: cloNIDine 0.2 MG TAB PO ×3 (06:25→21:09)
[2018-08-01] MEDS: SENOKOT S TAB PO ×2 (06:33→21:09)
[2018-08-01] MEDS: ASPIRIN 81 MG ENTERIC TAB PO (06:33)
[2018-08-01] MEDS: MOM 30ML SUSPENSION UDC PO (06:33)
[2018-08-01] MEDS: FERROUS SULFATE 325MG TAB PO (06:33)
[2018-08-01 07:30] LABS: BEDSIDE GLUCOSE 203 MG/DL (80-115)
[2018-08-01] MEDS: HumaLOG INSULIN (NovoLOG) PER UNIT SC ×4 (07:30→21:20)
[2018-08-01 09:05] LABS: VITAMIN B12 LEVEL 824 PG/ML (247-911)
[2018-08-01] MEDS: PANTOPRAZOLE 40MG TAB (PROTONIX) PO ×2 (09:33→21:09)
[2018-08-01] MEDS: ATORVASTATIN 20 MG TAB PO (09:33)
[2018-08-01] MEDS: SPIRONOLACTONE 25 MG TAB PO ×2 (09:34→17:00)
[2018-08-01] MEDS: **hydrALAZINE HCL** 25 MG TAB PO ×3 (09:34→21:09)
[2018-08-01] MEDS: CLOPIDOGREL 75 MG TAB PO (09:35)
[2018-08-01] MEDS: THIAMINE HCL 200 MG/2 ML VIAL (J3411) IV (09:35)
[2018-08-01] MEDS: CitaloPRAM (CeleXA) 20 MG TAB PO (09:35)
[2018-08-01 09:38] LABS: INR 1.07
[2018-08-01 09:39] LABS: PARTIAL THROMBOPLASTIN TIME 41.2 SECONDS (25.4-37.6)
[2018-08-01] MEDS ORDERED: BISACODYL 10 MG SUPP PR (10:00)
[2018-08-01 11:53] LABS: BEDSIDE GLUCOSE 328 MG/DL (80-115)
[2018-08-01] MEDS: FOLIC ACID 1 MG TAB PO (11:56)
[2018-08-01] MEDS ORDERED: fentaNYL 100 MCG/2 ML INJECTION (J3010) As Ordered ×3 (16:42→19:36)
[2018-08-01] MEDS ORDERED: CALCIUM CHLORIDE 10% 1 GM/10 ML SYR As Ordered (17:19)
[2018-08-01] MEDS ORDERED: HEPARIN SOD (PORCINE) 5000 UNITS/ML VIAL As Ordered ×2 (17:19→17:20)
[2018-08-01] MEDS ORDERED: MIDAZOLAM INJ 2 MG/2 ML VIAL (J2250) As Ordered (17:19)
[2018-08-01] MEDS ORDERED: LIDOCAINE 2% INJ 100 MG/5 ML SDV (FOR ANES.) As Ordered (17:19)
[2018-08-01] MEDS ORDERED: PROPOFOL 200 MG/20 ML VIAL As Ordered (17:19)
[2018-08-01] MEDS ORDERED: ONDANSETRON 4MG/2ML VIAL (J2405) As Ordered (17:19)
[2018-08-01] MEDS ORDERED: VASOPRESSIN INJ 20 UNITS/ML VIAL As Ordered (17:20)
[2018-08-01] MEDS ORDERED: ePHEDrine SULFATE 25 MG/5 ML(5MG/ML) SYRINGE As Ordered (17:20)
[2018-08-01] MEDS ORDERED: GLYCOPYRROLATE INJ 0.2 MG/ML 2 ML VIAL As Ordered ×3 (17:21)
[2018-08-01] MEDS ORDERED: NEOSTIGMINE 10 MG/10 ML VIAL (J2710) As Ordered (17:21)
[2018-08-01] MEDS: HEPARIN SOD (PORCINE) 5000 UNITS/ML VIAL As Ordered (17:23)
[2018-08-01 17:24] LABS: IMMEDIATE SPIN CROSSMATCH 1
[2018-08-01] MEDS ORDERED: hydrALAZINE INJ 20 MG/ML VIAL As Ordered (17:25)
[2018-08-01] MEDS: THROMBIN SOLN 20,000 UNITS KIT As Ordered (18:00)
[2018-08-01] MEDS ORDERED: PROTAMINE SULF INJ 50 MG/5 ML VIAL (J2720) As Ordered (18:53)
[2018-08-01] MEDS: fentaNYL 100 MCG/2 ML INJECTION (J3010) IV ×4 (19:42→19:57)
[2018-08-01] MEDS ORDERED: METOCLOPRAMIDE INJ 10MG/2ML VIAL (J2765) IV (20:00)
[2018-08-01] MEDS: NS 1,000 ML IV (20:00)
[2018-08-01] MEDS ORDERED: hydrALAZINE INJ 20 MG/ML VIAL IV (20:00)
[2018-08-01] MEDS ORDERED: ONDANSETRON 4MG/2ML VIAL (J2405) IV (20:00)
[2018-08-01] MEDS: PERCOCET 5MG/325MG TAB PO (21:10)
[2018-08-01] MEDS: MEROPENEM INJ 500 MG in APPROPRIATE DILUENT 1 EA IV (21:11)
[2018-08-01 21:17] LABS: BEDSIDE GLUCOSE 405 MG/DL (80-115)
[2018-08-01 22:09] LABS: HEMATOCRIT 24.4 % (42.0-52.0); HEMOGLOBIN 8.1 g/dl (13.5-17.5); MEAN CORPUSCULAR HEMOGLOBIN 32.5 pg (27.0-33.0); MEAN CORPUSCULAR HGB CONC 33.2 g/dl (32.0-36.5); PLATELET COUNT, AUTOMATED 192 10^3/uL (150-450); RED BLOOD COUNT 2.49 10^6/uL (4.30-6.10); RED CELL DISTRIBUTION WIDTH 16.4 % (11.5-14.5); WHITE BLOOD COUNT 8.8 10^3/uL (4.0-10.0)
[2018-08-01 22:23] LABS: INR 1.21; PROTHROMBIN TIME 15.4 SECONDS (12.1-14.4)
[2018-08-01 22:55] LABS: ALBUMIN 2.1 GM/DL (3.2-5.2); ALBUMIN/GLOBULIN RATIO 0.68 (1.00-1.93); ALKALINE PHOSPHATASE 61 U/L (45-117); ALT/SGPT 24 U/L (12-78); ANION GAP 13 MEQ/L (8-16); AST/SGOT 26 U/L (7-37); BILIRUBIN,TOTAL 0.6 MG/DL (0.2-1.0); BLOOD UREA NITROGEN 41 MG/DL (7-18); CALCIUM LEVEL 8.4 MG/DL (8.8-10.2); CARBON DIOXIDE LEVEL 20 MEQ/L (21-32); CHLORIDE LEVEL 98 MEQ/L (98-107); CREATININE FOR GFR 6.44 MG/DL (0.70-1.30); GLOMERULAR FILTRATION RATE 9.2 (>49); GLUCOSE, FASTING 428 MG/DL (70-100); POTASSIUM SERUM 4.9 MEQ/L (3.5-5.1); SODIUM LEVEL 131 MEQ/L (136-145); TOTAL PROTEIN 5.2 GM/DL (6.4-8.2)
[2018-08-02 00:11] LABS: BEDSIDE GLUCOSE 388 MG/DL (80-115)
[2018-08-02] MEDS: HumaLOG INSULIN (NovoLOG) PER UNIT SC ×5 (00:44→20:09)
[2018-08-02] MEDS: NITROGLYCERIN 2% OINT 1 GM *U/D* PKT TOP (01:24)
[2018-08-02] MEDS: IPRATROPIUM 0.5MG/ALBUTEROL 2.5MG INH SOL UD 3ML (DUONEB)(J7620) NEB (01:25)
[2018-08-02] MEDS: NS 1,000 ML IV (01:30)
[2018-08-02 01:45] LABS: CPK CREATINE PHOSPHOKINASE 143 U/L (39-308); MB/CK RELATIVE INDEX 2.24 (< OR =4); TROPONIN I < 0.02 NG/ML (< 0.10)
[2018-08-02] MEDS ORDERED: IPRATROPIUM 0.5MG/ALBUTEROL 2.5MG INH SOL UD 3ML (DUONEB)(J7620) NEB ×2 (02:15→08:30)
[2018-08-02] MEDS: MORPHINE 4 MG/ML 1ML VIAL/SYRINGE (J2270) IV ×3 (03:27→23:25)
[2018-08-02 04:59] LABS: BASO % 0.4 % (0.0-1.0); EOS # 0.1 10^3/uL (0.0-0.50); EOS % 0.6 % (0.0-3.0); HEMATOCRIT 21.6 % (42.0-52.0); HEMOGLOBIN 7.2 g/dl (13.5-17.5); IMMATURE GRANULOCYTE % 1.6 % (0-3.0); LYMPH # 0.6 10^3/uL (1.5-4.5); LYMPH % 7.3 % (24.0-44.0); MEAN CORPUSCULAR HEMOGLOBIN 32.1 pg (27.0-33.0); MEAN CORPUSCULAR HGB CONC 33.3 g/dl (32.0-36.5); MEAN CORPUSCULAR VOLUME 96.4 fl (80.0-96.0); MONO # 0.7 10^3/uL (0.0-0.8); MONO % 8.4 % (0.0-5.0); NEUTROPHILS # 6.6 10^3/uL (1.8-7.7); NEUTROPHILS % 81.7 % (36.0-66.0); PLATELET COUNT, AUTOMATED 204 10^3/uL (150-450); RED BLOOD COUNT 2.24 10^6/uL (4.30-6.10); RED CELL DISTRIBUTION WIDTH 16.8 % (11.5-14.5); WHITE BLOOD COUNT 8.1 10^3/uL (4.0-10.0)
[2018-08-02 05:15] LABS: ALBUMIN 2.1 GM/DL (3.2-5.2); ALBUMIN/GLOBULIN RATIO 0.68 (1.00-1.93); ALKALINE PHOSPHATASE 59 U/L (45-117); ALT/SGPT 21 U/L (12-78); ANION GAP 8 MEQ/L (8-16); AST/SGOT 25 U/L (7-37); BILIRUBIN,TOTAL 0.3 MG/DL (0.2-1.0); BLOOD UREA NITROGEN 42 MG/DL (7-18); CALCIUM LEVEL 7.9 MG/DL (8.8-10.2); CARBON DIOXIDE LEVEL 24 MEQ/L (21-32); CHLORIDE LEVEL 99 MEQ/L (98-107); CREATININE FOR GFR 6.75 MG/DL (0.70-1.30); GLOMERULAR FILTRATION RATE 8.8 (>49); GLUCOSE, FASTING 373 MG/DL (70-100); POTASSIUM SERUM 5.5 MEQ/L (3.5-5.1); SODIUM LEVEL 131 MEQ/L (136-145); TOTAL PROTEIN 5.2 GM/DL (6.4-8.2)
[2018-08-02] MEDS: ASPIRIN 81 MG ENTERIC TAB PO (06:11)
[2018-08-02] MEDS: PERCOCET 5MG/325MG TAB PO ×3 (06:13→20:08)
[2018-08-02 06:46] LABS: BEDSIDE GLUCOSE 293 MG/DL (80-115)
[2018-08-02 08:06] LABS: HAPTOGLOBIN 167 mg/dL (34-200)
[2018-08-02] MEDS: CLOPIDOGREL 75 MG TAB PO (08:07)
[2018-08-02] MEDS: cloNIDine 0.2 MG TAB PO ×2 (08:08→16:00)
[2018-08-02] MEDS: THIAMINE 100 MG TAB PO (08:08)
[2018-08-02] MEDS: CALCITRIOL 0.25 MCG CAP (S0169) PO (08:08)
[2018-08-02] MEDS: FOLIC ACID 1 MG TAB PO (08:09)
[2018-08-02] MEDS: ATORVASTATIN 20 MG TAB PO (08:09)
[2018-08-02] MEDS: SPIRONOLACTONE 25 MG TAB PO ×2 (08:09→17:25)
[2018-08-02] MEDS: CitaloPRAM (CeleXA) 20 MG TAB PO (08:09)
[2018-08-02] MEDS: FERROUS SULFATE 325MG TAB PO (08:10)
[2018-08-02] MEDS: PANTOPRAZOLE 40MG TAB (PROTONIX) PO ×2 (08:11→20:05)
[2018-08-02] MEDS: **hydrALAZINE HCL** 25 MG TAB PO ×3 (08:11→20:09)
[2018-08-02] MEDS: SENOKOT S TAB PO ×2 (08:11→20:05)
[2018-08-02 10:13] LABS: IMMEDIATE SPIN CROSSMATCH 1 1
[2018-08-02 12:03] LABS: BEDSIDE GLUCOSE 120 MG/DL (80-115)
[2018-08-02] MEDS ORDERED: SLF 3 ML SYR IV (16:30)
[2018-08-02 16:42] LABS: BEDSIDE GLUCOSE 83 MG/DL (80-115)
[2018-08-02] MEDS: MEROPENEM INJ 500 MG in APPROPRIATE DILUENT 1 EA IV (17:25)
[2018-08-02 18:07] LABS: HEMATOCRIT 25.6 % (42.0-52.0)
[2018-08-02 20:04] LABS: BEDSIDE GLUCOSE 122 MG/DL (80-115)
[2018-08-02] MEDS: cloNIDine 0.1 MG TAB PO (20:09)
[2018-08-02] MEDS ORDERED: cloNIDine 0.2 MG TAB PO (21:00)
[2018-08-02] MEDS: SLF 3 ML SYR IV (21:34)
[2018-08-03] MEDS: PERCOCET 5MG/325MG TAB PO ×4 (02:12→22:44)
[2018-08-03] MEDS ORDERED: diphenhydrAMINE INJ 50MG/ML VIAL (J1200) IM (03:30)
[2018-08-03] MEDS: diphenhydrAMINE INJ 50MG/ML VIAL (J1200) IV (04:03)
[2018-08-03 05:01] LABS: BASO % 0.5 % (0.0-1.0); EOS # 0.2 10^3/uL (0.0-0.50); EOS % 3.5 % (0.0-3.0); HEMATOCRIT 25.7 % (42.0-52.0); IMMATURE GRANULOCYTE % 2.6 % (0-3.0); LYMPH # 0.8 10^3/uL (1.5-4.5); LYMPH % 13.8 % (24.0-44.0); MEAN CORPUSCULAR HEMOGLOBIN 31.8 pg (27.0-33.0); MEAN CORPUSCULAR VOLUME 90.8 fl (80.0-96.0); MONO # 0.8 10^3/uL (0.0-0.8); MONO % 13.7 % (0.0-5.0); NEUTROPHILS # 3.8 10^3/uL (1.8-7.7); NEUTROPHILS % 65.9 % (36.0-66.0); PLATELET COUNT, AUTOMATED 182 10^3/uL (150-450); RED BLOOD COUNT 2.83 10^6/uL (4.30-6.10); RED CELL DISTRIBUTION WIDTH 17.2 % (11.5-14.5); WHITE BLOOD COUNT 5.8 10^3/uL (4.0-10.0)
[2018-08-03 05:14] LABS: ALBUMIN 2.1 GM/DL (3.2-5.2); ALKALINE PHOSPHATASE 56 U/L (45-117); ALT/SGPT 21 U/L (12-78); ANION GAP 9 MEQ/L (8-16); AST/SGOT 29 U/L (7-37); BILIRUBIN,TOTAL 0.3 MG/DL (0.2-1.0); BLOOD UREA NITROGEN 18 MG/DL (7-18); CALCIUM LEVEL 7.8 MG/DL (8.8-10.2); CARBON DIOXIDE LEVEL 27 MEQ/L (21-32); CHLORIDE LEVEL 99 MEQ/L (98-107); CREATININE FOR GFR 4.03 MG/DL (0.70-1.30); GLOMERULAR FILTRATION RATE 15.9 (>49); GLUCOSE, FASTING 199 MG/DL (70-100); POTASSIUM SERUM 3.6 MEQ/L (3.5-5.1); SODIUM LEVEL 135 MEQ/L (136-145); TOTAL PROTEIN 5.1 GM/DL (6.4-8.2)
[2018-08-03] MEDS: hydrALAZINE INJ 20 MG/ML VIAL IV ×2 (05:26→23:31)
[2018-08-03] MEDS: SLF 3 ML SYR IV ×3 (05:27→21:20)
[2018-08-03] MEDS: HumaLOG INSULIN (NovoLOG) PER UNIT SC ×4 (07:19→20:10)
[2018-08-03] MEDS: PANTOPRAZOLE 40MG TAB (PROTONIX) PO ×2 (08:56→20:08)
[2018-08-03] MEDS: **hydrALAZINE HCL** 25 MG TAB PO ×3 (08:57→20:08)
[2018-08-03] MEDS: FERROUS SULFATE 325MG TAB PO (08:57)
[2018-08-03] MEDS: SENOKOT S TAB PO ×2 (08:57→20:07)
[2018-08-03] MEDS: THIAMINE 100 MG TAB PO (08:58)
[2018-08-03] MEDS: FOLIC ACID 1 MG TAB PO (08:58)
[2018-08-03] MEDS: ATORVASTATIN 20 MG TAB PO (08:58)
[2018-08-03] MEDS: CitaloPRAM (CeleXA) 20 MG TAB PO (08:58)
[2018-08-03] MEDS: cloNIDine 0.1 MG TAB PO ×4 (08:59→20:07)
[2018-08-03] MEDS: SPIRONOLACTONE 25 MG TAB PO ×3 (08:59→17:02)
[2018-08-03 11:55] LABS: BEDSIDE GLUCOSE 295 MG/DL (80-115)
[2018-08-03 14:43] LABS: BEDSIDE GLUCOSE 344 MG/DL (80-115)
[2018-08-03 16:58] LABS: BEDSIDE GLUCOSE 298 MG/DL (80-115)
[2018-08-03] MEDS: MEROPENEM INJ 500 MG in APPROPRIATE DILUENT 1 EA IV (17:20)
[2018-08-03] MEDS: diphenhydrAMINE CREAM 30GM TOP (17:22)
[2018-08-03] MEDS: hydrOXYzine 25 MG TAB PO (20:08)
[2018-08-03] MEDS: MORPHINE 4 MG/ML 1ML VIAL/SYRINGE (J2270) IV (20:10)
[2018-08-03 20:17] LABS: BEDSIDE GLUCOSE 243 MG/DL (80-115)
[2018-08-04] MEDS: SPIRONOLACTONE 25 MG TAB PO ×3 (00:05→16:11)
[2018-08-04 00:06] LABS: BEDSIDE GLUCOSE 158 MG/DL (80-115)
[2018-08-04] MEDS: PERCOCET 5MG/325MG TAB PO ×3 (04:25→21:07)
[2018-08-04 04:32] LABS: BASO % 0.5 % (0.0-1.0); EOS # 0.2 10^3/uL (0.0-0.50); EOS % 3.1 % (0.0-3.0); HEMATOCRIT 26.7 % (42.0-52.0); HEMOGLOBIN 9.2 g/dl (13.5-17.5); IMMATURE GRANULOCYTE % 4.8 % (0-3.0); LYMPH # 0.7 10^3/uL (1.5-4.5); LYMPH % 12.7 % (24.0-44.0); MEAN CORPUSCULAR HEMOGLOBIN 32.2 pg (27.0-33.0); MEAN CORPUSCULAR HGB CONC 34.5 g/dl (32.0-36.5); MEAN CORPUSCULAR VOLUME 93.4 fl (80.0-96.0); MONO # 0.7 10^3/uL (0.0-0.8); MONO % 12.7 % (0.0-5.0); NEUTROPHILS # 3.8 10^3/uL (1.8-7.7); NEUTROPHILS % 66.2 % (36.0-66.0); PLATELET COUNT, AUTOMATED 237 10^3/uL (150-450); RED BLOOD COUNT 2.86 10^6/uL (4.30-6.10); RED CELL DISTRIBUTION WIDTH 17.7 % (11.5-14.5); WHITE BLOOD COUNT 5.8 10^3/uL (4.0-10.0)
[2018-08-04 04:42] LABS: INR 1.01; PROTHROMBIN TIME 13.4 SECONDS (12.1-14.4)
[2018-08-04 04:43] LABS: PARTIAL THROMBOPLASTIN TIME 39.8 SECONDS (25.4-37.6)
[2018-08-04] MEDS: cloNIDine 0.1 MG TAB PO ×3 (04:44→21:08)
[2018-08-04 04:58] LABS: ALBUMIN/GLOBULIN RATIO 0.59 (1.00-1.93); ALKALINE PHOSPHATASE 60 U/L (45-117); ALT/SGPT 18 U/L (12-78); ANION GAP 10 MEQ/L (8-16); AST/SGOT 24 U/L (7-37); BILIRUBIN,TOTAL 0.3 MG/DL (0.2-1.0); BLOOD UREA NITROGEN 25 MG/DL (7-18); CALCIUM LEVEL 7.7 MG/DL (8.8-10.2); CARBON DIOXIDE LEVEL 26 MEQ/L (21-32); CHLORIDE LEVEL 101 MEQ/L (98-107); CREATININE FOR GFR 5.03 MG/DL (0.70-1.30); GLOMERULAR FILTRATION RATE 12.3 (>49); GLUCOSE, FASTING 178 MG/DL (70-100); POTASSIUM SERUM 3.8 MEQ/L (3.5-5.1); SODIUM LEVEL 137 MEQ/L (136-145); TOTAL PROTEIN 5.4 GM/DL (6.4-8.2)
[2018-08-04] MEDS: SLF 3 ML SYR IV ×3 (05:06→21:46)
[2018-08-04 05:11] LABS: COLLAGEN EPINEPHRINE > 279 SECONDS (74-162)
[2018-08-04 05:16] LABS: COLLAGEN ADP 147 SECONDS (56-103)
[2018-08-04] MEDS: HumaLOG INSULIN (NovoLOG) PER UNIT SC ×4 (08:04→21:32)
[2018-08-04 08:39] LABS: BEDSIDE GLUCOSE 247 MG/DL (80-115)
[2018-08-04] MEDS ORDERED: LevoFLOXacin 750 MG TABLET PO (11:45)
[2018-08-04 11:54] LABS: BEDSIDE GLUCOSE 94 MG/DL (80-115)
[2018-08-04] MEDS: CALCITRIOL 0.25 MCG CAP (S0169) PO (12:12)
[2018-08-04] MEDS: FERROUS SULFATE 325MG TAB PO (12:12)
[2018-08-04] MEDS: PANTOPRAZOLE 40MG TAB (PROTONIX) PO ×2 (12:13→21:08)
[2018-08-04] MEDS: ATORVASTATIN 20 MG TAB PO (12:13)
[2018-08-04] MEDS: FOLIC ACID 1 MG TAB PO (12:13)
[2018-08-04] MEDS: SENOKOT S TAB PO ×2 (12:13→21:08)
[2018-08-04] MEDS: CitaloPRAM (CeleXA) 20 MG TAB PO (12:14)
[2018-08-04] MEDS: **hydrALAZINE HCL** 25 MG TAB PO ×3 (12:15→21:08)
[2018-08-04] MEDS: LevoFLOXacin 750 MG TABLET PO (12:17)
[2018-08-04] MEDS: THIAMINE 100 MG TAB PO (12:17)
[2018-08-04 16:58] LABS: BEDSIDE GLUCOSE 190 MG/DL (80-115)
[2018-08-04 21:14] LABS: BEDSIDE GLUCOSE 288 MG/DL (80-115)
[2018-08-05] MEDS: hydrOXYzine 25 MG TAB PO (00:17)
[2018-08-05] MEDS: diphenhydrAMINE 25 MG CAP PO (01:56)
[2018-08-05 05:06] LABS: EOS # 0.2 10^3/uL (0.0-0.50); EOS % 3.8 % (0.0-3.0); HEMATOCRIT 29.5 % (42.0-52.0); HEMOGLOBIN 9.8 g/dl (13.5-17.5); IMMATURE GRANULOCYTE % 3.1 % (0-3.0); LYMPH # 0.8 10^3/uL (1.5-4.5); LYMPH % 19.3 % (24.0-44.0); MEAN CORPUSCULAR HEMOGLOBIN 31.8 pg (27.0-33.0); MEAN CORPUSCULAR HGB CONC 33.2 g/dl (32.0-36.5); MEAN CORPUSCULAR VOLUME 95.8 fl (80.0-96.0); MONO # 0.7 10^3/uL (0.0-0.8); MONO % 15.8 % (0.0-5.0); NEUTROPHILS # 2.4 10^3/uL (1.8-7.7); PLATELET COUNT, AUTOMATED 263 10^3/uL (150-450); RED BLOOD COUNT 3.08 10^6/uL (4.30-6.10); RED CELL DISTRIBUTION WIDTH 17.8 % (11.5-14.5); WHITE BLOOD COUNT 4.2 10^3/uL (4.0-10.0)
[2018-08-05 05:26] LABS: ALBUMIN/GLOBULIN RATIO 0.59 (1.00-1.93); ALKALINE PHOSPHATASE 62 U/L (45-117); ALT/SGPT 18 U/L (12-78); ANION GAP 5 MEQ/L (8-16); AST/SGOT 19 U/L (7-37); BILIRUBIN,TOTAL 0.3 MG/DL (0.2-1.0); BLOOD UREA NITROGEN 17 MG/DL (7-18); CALCIUM LEVEL 8.1 MG/DL (8.8-10.2); CARBON DIOXIDE LEVEL 30 MEQ/L (21-32); CHLORIDE LEVEL 100 MEQ/L (98-107); CREATININE FOR GFR 3.71 MG/DL (0.70-1.30); GLOMERULAR FILTRATION RATE 17.5 (>49); GLUCOSE, FASTING 241 MG/DL (70-100); POTASSIUM SERUM 4.1 MEQ/L (3.5-5.1); SODIUM LEVEL 135 MEQ/L (136-145); TOTAL PROTEIN 5.4 GM/DL (6.4-8.2)
[2018-08-05] MEDS: SLF 3 ML SYR IV ×3 (06:00→21:04)
[2018-08-05] MEDS: HumaLOG INSULIN (NovoLOG) PER UNIT SC ×4 (07:30→21:03)
[2018-08-05] MEDS: PANTOPRAZOLE 40MG TAB (PROTONIX) PO ×2 (08:37→21:04)
[2018-08-05] MEDS: SENOKOT S TAB PO ×2 (08:37→21:04)
[2018-08-05] MEDS: THIAMINE 100 MG TAB PO (08:37)
[2018-08-05] MEDS: SPIRONOLACTONE 50 MG TAB PO ×2 (08:37→15:32)
[2018-08-05] MEDS: ATORVASTATIN 20 MG TAB PO (08:37)
[2018-08-05] MEDS: **hydrALAZINE HCL** 25 MG TAB PO (08:38)
[2018-08-05] MEDS: FOLIC ACID 1 MG TAB PO (08:38)
[2018-08-05] MEDS: CitaloPRAM (CeleXA) 20 MG TAB PO (08:38)
[2018-08-05] MEDS: cloNIDine 0.1 MG TAB PO ×3 (08:38→21:04)
[2018-08-05] MEDS: FERROUS SULFATE 325MG TAB PO (08:38)
[2018-08-05 11:37] LABS: BEDSIDE GLUCOSE 406 MG/DL (80-115)
[2018-08-05] MEDS: **hydrALAZINE** 50 MG TAB PO ×2 (15:32→21:03)
[2018-08-05 16:54] LABS: BEDSIDE GLUCOSE 345 MG/DL (80-115)
[2018-08-05] MEDS: LEVEMIR (INSULIN DETEMIR) 1 UNITS/0.01ML SC (21:03)
[2018-08-05 21:10] LABS: BEDSIDE GLUCOSE 299 MG/DL (80-115)
[2018-08-06] MEDS: PERCOCET 5MG/325MG TAB PO (04:28)
[2018-08-06] MEDS: SLF 3 ML SYR IV ×3 (06:05→20:21)
[2018-08-06] MEDS: **hydrALAZINE** 50 MG TAB PO ×2 (06:05→16:17)
[2018-08-06] MEDS: LevoFLOXacin 500 MG TABLET PO (06:05)
[2018-08-06] MEDS: ATORVASTATIN 20 MG TAB PO (06:06)
[2018-08-06] MEDS: SPIRONOLACTONE 50 MG TAB PO ×2 (06:07→16:16)
[2018-08-06] MEDS: CitaloPRAM (CeleXA) 20 MG TAB PO (06:08)
[2018-08-06] MEDS: cloNIDine 0.1 MG TAB PO ×3 (06:09→20:21)
[2018-08-06] MEDS: FOLIC ACID 1 MG TAB PO (06:10)
[2018-08-06] MEDS: FERROUS SULFATE 325MG TAB PO (06:11)
[2018-08-06] MEDS: PANTOPRAZOLE 40MG TAB (PROTONIX) PO ×2 (06:11→20:20)
[2018-08-06] MEDS: THIAMINE 100 MG TAB PO (06:11)
[2018-08-06] MEDS: SENOKOT S TAB PO ×2 (06:12→20:20)
[2018-08-06 06:17] LABS: BASO # 0.1 10^3/uL (0.0-0.2); BASO % 0.9 % (0.0-1.0); EOS # 0.2 10^3/uL (0.0-0.50); EOS % 3.4 % (0.0-3.0); HEMATOCRIT 29.6 % (42.0-52.0); HEMOGLOBIN 9.9 g/dl (13.5-17.5); IMMATURE GRANULOCYTE % 1.7 % (0-3.0); LYMPH # 1.1 10^3/uL (1.5-4.5); LYMPH % 20.3 % (24.0-44.0); MEAN CORPUSCULAR HEMOGLOBIN 32.2 pg (27.0-33.0); MEAN CORPUSCULAR HGB CONC 33.4 g/dl (32.0-36.5); MEAN CORPUSCULAR VOLUME 96.4 fl (80.0-96.0); MONO # 0.7 10^3/uL (0.0-0.8); MONO % 12.7 % (0.0-5.0); NEUTROPHILS # 3.2 10^3/uL (1.8-7.7); PLATELET COUNT, AUTOMATED 323 10^3/uL (150-450); RED BLOOD COUNT 3.07 10^6/uL (4.30-6.10); RED CELL DISTRIBUTION WIDTH 17.9 % (11.5-14.5); WHITE BLOOD COUNT 5.3 10^3/uL (4.0-10.0)
[2018-08-06 06:52] LABS: ALBUMIN 2.1 GM/DL (3.2-5.2); ALBUMIN/GLOBULIN RATIO 0.58 (1.00-1.93); ALKALINE PHOSPHATASE 69 U/L (45-117); ALT/SGPT 16 U/L (12-78); ANION GAP 11 MEQ/L (8-16); AST/SGOT 17 U/L (7-37); BILIRUBIN,TOTAL 0.3 MG/DL (0.2-1.0); BLOOD UREA NITROGEN 26 MG/DL (7-18); C REACTIVE PROTEIN QUANTITATIV 8.26 MG/DL (0.00-0.30); CARBON DIOXIDE LEVEL 26 MEQ/L (21-32); CHLORIDE LEVEL 98 MEQ/L (98-107); CREATININE FOR GFR 4.99 MG/DL (0.70-1.30); GLOMERULAR FILTRATION RATE 12.4 (>49); GLUCOSE, FASTING 116 MG/DL (70-100); SODIUM LEVEL 135 MEQ/L (136-145); TOTAL PROTEIN 5.7 GM/DL (6.4-8.2)
[2018-08-06] MEDS: HumaLOG INSULIN (NovoLOG) PER UNIT SC ×4 (07:30→20:38)
[2018-08-06] MEDS: LIDOCAINE 1% SDV 5 ML VIAL SQ (13:38)
[2018-08-06 13:41] LABS: BEDSIDE GLUCOSE 133 MG/DL (80-115)
[2018-08-06 16:02] LABS: IMMEDIATE SPIN CROSSMATCH 1
[2018-08-06 17:25] LABS: BEDSIDE GLUCOSE 227 MG/DL (80-115)
[2018-08-06] MEDS ORDERED: PERCOCET 5MG/325MG TAB PO (18:00)
[2018-08-06 19:50] LABS: BEDSIDE GLUCOSE 279 MG/DL (80-115)
[2018-08-06] MEDS: CHLORTHALIDONE 25 MG TAB PO (20:20)
[2018-08-06] MEDS: LEVEMIR (INSULIN DETEMIR) 1 UNITS/0.01ML SC (20:21)
[2018-08-07] MEDS: SLF 3 ML SYR IV ×3 (05:03→20:36)
[2018-08-07 06:51] LABS: BASO % 0.8 % (0.0-1.0); EOS # 0.1 10^3/uL (0.0-0.50); EOS % 2.5 % (0.0-3.0); HEMATOCRIT 28.6 % (42.0-52.0); HEMOGLOBIN 9.5 g/dl (13.5-17.5); IMMATURE GRANULOCYTE % 1.4 % (0-3.0); LYMPH # 0.8 10^3/uL (1.5-4.5); LYMPH % 17.2 % (24.0-44.0); MEAN CORPUSCULAR HEMOGLOBIN 32.2 pg (27.0-33.0); MEAN CORPUSCULAR HGB CONC 33.2 g/dl (32.0-36.5); MEAN CORPUSCULAR VOLUME 96.9 fl (80.0-96.0); MONO # 0.8 10^3/uL (0.0-0.8); MONO % 16.4 % (0.0-5.0); NEUTROPHILS % 61.7 % (36.0-66.0); PLATELET COUNT, AUTOMATED 351 10^3/uL (150-450); RED BLOOD COUNT 2.95 10^6/uL (4.30-6.10); RED CELL DISTRIBUTION WIDTH 18.5 % (11.5-14.5); WHITE BLOOD COUNT 4.8 10^3/uL (4.0-10.0)
[2018-08-07 06:56] LABS: BEDSIDE GLUCOSE 68 MG/DL (80-115)
[2018-08-07 07:25] LABS: ALBUMIN 2.2 GM/DL (3.2-5.2); ALBUMIN/GLOBULIN RATIO 0.63 (1.00-1.93); ALKALINE PHOSPHATASE 67 U/L (45-117); ALT/SGPT 14 U/L (12-78); ANION GAP 8 MEQ/L (8-16); AST/SGOT 23 U/L (7-37); BILIRUBIN,TOTAL 0.3 MG/DL (0.2-1.0); BLOOD UREA NITROGEN 15 MG/DL (7-18); C REACTIVE PROTEIN QUANTITATIV 6.42 MG/DL (0.00-0.30); CARBON DIOXIDE LEVEL 29 MEQ/L (21-32); CHLORIDE LEVEL 100 MEQ/L (98-107); CREATININE FOR GFR 3.69 MG/DL (0.70-1.30); GLOMERULAR FILTRATION RATE 17.6 (>49); GLUCOSE, FASTING 75 MG/DL (70-100); POTASSIUM SERUM 3.8 MEQ/L (3.5-5.1); SODIUM LEVEL 137 MEQ/L (136-145); TOTAL PROTEIN 5.7 GM/DL (6.4-8.2)
[2018-08-07] MEDS: HumaLOG INSULIN (NovoLOG) PER UNIT SC ×4 (07:30→19:57)
[2018-08-07] MEDS: THIAMINE 100 MG TAB PO (09:13)
[2018-08-07] MEDS: FERROUS SULFATE 325MG TAB PO (09:13)
[2018-08-07] MEDS: FOLIC ACID 1 MG TAB PO (09:13)
[2018-08-07] MEDS: SPIRONOLACTONE 50 MG TAB PO ×2 (09:13→17:00)
[2018-08-07] MEDS: PANTOPRAZOLE 40MG TAB (PROTONIX) PO ×2 (09:13→20:38)
[2018-08-07] MEDS: cloNIDine 0.1 MG TAB PO ×3 (09:13→20:38)
[2018-08-07] MEDS: CitaloPRAM (CeleXA) 20 MG TAB PO (09:13)
[2018-08-07] MEDS: CALCITRIOL 0.25 MCG CAP (S0169) PO (09:14)
[2018-08-07] MEDS: ATORVASTATIN 20 MG TAB PO (09:14)
[2018-08-07] MEDS: SENOKOT S TAB PO ×2 (09:14→20:38)
[2018-08-07] MEDS: CHLORTHALIDONE 25 MG TAB PO (09:14)
[2018-08-07 11:41] LABS: BEDSIDE GLUCOSE 271 MG/DL (80-115)
[2018-08-07 16:50] LABS: BEDSIDE GLUCOSE 261 MG/DL (80-115)
[2018-08-07 20:01] LABS: BEDSIDE GLUCOSE 243 MG/DL (80-115)
[2018-08-07] MEDS: LEVEMIR (INSULIN DETEMIR) 1 UNITS/0.01ML SC (20:38)
[2018-08-08] MEDS: ATORVASTATIN 20 MG TAB PO (06:36)
[2018-08-08] MEDS: FERROUS SULFATE 325MG TAB PO (06:37)
[2018-08-08] MEDS: SPIRONOLACTONE 50 MG TAB PO ×2 (06:37→16:49)
[2018-08-08] MEDS: SENOKOT S TAB PO ×2 (06:37→22:12)
[2018-08-08] MEDS: THIAMINE 100 MG TAB PO (06:37)
[2018-08-08] MEDS: PANTOPRAZOLE 40MG TAB (PROTONIX) PO ×2 (06:37→22:12)
[2018-08-08] MEDS: LevoFLOXacin 500 MG TABLET PO (06:37)
[2018-08-08] MEDS: CHLORTHALIDONE 25 MG TAB PO (06:37)
[2018-08-08] MEDS: SLF 3 ML SYR IV ×3 (06:37→22:15)
[2018-08-08] MEDS: CitaloPRAM (CeleXA) 20 MG TAB PO (06:38)
[2018-08-08] MEDS: cloNIDine 0.1 MG TAB PO ×3 (06:38→22:13)
[2018-08-08] MEDS: FOLIC ACID 1 MG TAB PO (06:38)
[2018-08-08 06:55] LABS: BASO % 0.8 % (0.0-1.0); EOS # 0.2 10^3/uL (0.0-0.50); EOS % 3.5 % (0.0-3.0); HEMATOCRIT 28.2 % (42.0-52.0); HEMOGLOBIN 9.3 g/dl (13.5-17.5); IMMATURE GRANULOCYTE % 1.8 % (0-3.0); LYMPH % 18.6 % (24.0-44.0); MEAN CORPUSCULAR HEMOGLOBIN 31.8 pg (27.0-33.0); MEAN CORPUSCULAR VOLUME 96.6 fl (80.0-96.0); MONO # 0.9 10^3/uL (0.0-0.8); MONO % 17.2 % (0.0-5.0); NEUTROPHILS % 58.1 % (36.0-66.0); PLATELET COUNT, AUTOMATED 334 10^3/uL (150-450); RED BLOOD COUNT 2.92 10^6/uL (4.30-6.10); RED CELL DISTRIBUTION WIDTH 17.9 % (11.5-14.5); WHITE BLOOD COUNT 5.1 10^3/uL (4.0-10.0)
[2018-08-08 07:13] LABS: ALBUMIN 2.1 GM/DL (3.2-5.2); ALBUMIN/GLOBULIN RATIO 0.62 (1.00-1.93); ALKALINE PHOSPHATASE 73 U/L (45-117); ALT/SGPT 14 U/L (12-78); ANION GAP 9 MEQ/L (8-16); AST/SGOT 19 U/L (7-37); BILIRUBIN,TOTAL 0.4 MG/DL (0.2-1.0); BLOOD UREA NITROGEN 22 MG/DL (7-18); C REACTIVE PROTEIN QUANTITATIV 6.92 MG/DL (0.00-0.30); CALCIUM LEVEL 8.3 MG/DL (8.8-10.2); CARBON DIOXIDE LEVEL 27 MEQ/L (21-32); CHLORIDE LEVEL 96 MEQ/L (98-107); CREATININE FOR GFR 4.86 MG/DL (0.70-1.30); GLOMERULAR FILTRATION RATE 12.8 (>49); GLUCOSE, FASTING 155 MG/DL (70-100); POTASSIUM SERUM 4.2 MEQ/L (3.5-5.1); SODIUM LEVEL 132 MEQ/L (136-145); TOTAL PROTEIN 5.5 GM/DL (6.4-8.2)
[2018-08-08] MEDS: HumaLOG INSULIN (NovoLOG) PER UNIT SC ×4 (10:34→22:14)
[2018-08-08] MEDS: LIDOCAINE 1% SDV 5 ML VIAL SQ (11:00)
[2018-08-08 13:58] LABS: BEDSIDE GLUCOSE 103 MG/DL (80-115)
[2018-08-08] MEDS: PERCOCET 5MG/325MG TAB PO (14:33)
[2018-08-08] MEDS: CLOPIDOGREL 75 MG TAB PO (14:35)
[2018-08-08] MEDS: ASPIRIN 81 MG ENTERIC TAB PO (14:35)
[2018-08-08 17:00] LABS: BEDSIDE GLUCOSE 359 MG/DL (80-115)
[2018-08-08 20:04] LABS: BEDSIDE GLUCOSE 427 MG/DL (80-115)
[2018-08-08] MEDS: LEVEMIR (INSULIN DETEMIR) 1 UNITS/0.01ML SC (22:13)
[2018-08-09] MEDS: SLF 3 ML SYR IV ×3 (05:10→20:52)
[2018-08-09 05:39] LABS: BASO # 0.1 10^3/uL (0.0-0.2); BASO % 1.2 % (0.0-1.0); EOS # 0.1 10^3/uL (0.0-0.50); EOS % 3.2 % (0.0-3.0); HEMATOCRIT 30.4 % (42.0-52.0); HEMOGLOBIN 10.2 g/dl (13.5-17.5); LYMPH # 0.6 10^3/uL (1.5-4.5); LYMPH % 14.9 % (24.0-44.0); MEAN CORPUSCULAR HGB CONC 33.6 g/dl (32.0-36.5); MEAN CORPUSCULAR VOLUME 95.3 fl (80.0-96.0); MONO # 0.8 10^3/uL (0.0-0.8); MONO % 20.3 % (0.0-5.0); NEUTROPHILS # 2.4 10^3/uL (1.8-7.7); NEUTROPHILS % 59.4 % (36.0-66.0); PLATELET COUNT, AUTOMATED 333 10^3/uL (150-450); RED BLOOD COUNT 3.19 10^6/uL (4.30-6.10); RED CELL DISTRIBUTION WIDTH 17.5 % (11.5-14.5); WHITE BLOOD COUNT 4.1 10^3/uL (4.0-10.0)
[2018-08-09 06:09] LABS: ALBUMIN 2.2 GM/DL (3.2-5.2); ALBUMIN/GLOBULIN RATIO 0.58 (1.00-1.93); ALKALINE PHOSPHATASE 78 U/L (45-117); ALT/SGPT 21 U/L (12-78); ANION GAP 6 MEQ/L (8-16); AST/SGOT 22 U/L (7-37); BILIRUBIN,TOTAL 0.3 MG/DL (0.2-1.0); BLOOD UREA NITROGEN 17 MG/DL (7-18); C REACTIVE PROTEIN QUANTITATIV 7.36 MG/DL (0.00-0.30); CALCIUM LEVEL 8.6 MG/DL (8.8-10.2); CARBON DIOXIDE LEVEL 28 MEQ/L (21-32); CHLORIDE LEVEL 99 MEQ/L (98-107); CREATININE FOR GFR 3.45 MG/DL (0.70-1.30); GLUCOSE, FASTING 96 MG/DL (70-100); POTASSIUM SERUM 4.1 MEQ/L (3.5-5.1); SODIUM LEVEL 133 MEQ/L (136-145)
[2018-08-09] MEDS: HumaLOG INSULIN (NovoLOG) PER UNIT SC ×4 (07:18→20:51)
[2018-08-09] MEDS: CALCITRIOL 0.25 MCG CAP (S0169) PO (09:08)
[2018-08-09] MEDS: FERROUS SULFATE 325MG TAB PO (09:08)
[2018-08-09] MEDS: PANTOPRAZOLE 40MG TAB (PROTONIX) PO ×2 (09:08→20:50)
[2018-08-09] MEDS: FOLIC ACID 1 MG TAB PO (09:08)
[2018-08-09] MEDS: LEVEMIR (INSULIN DETEMIR) 1 UNITS/0.01ML SC (09:08)
[2018-08-09] MEDS: ASPIRIN 81 MG ENTERIC TAB PO (09:08)
[2018-08-09] MEDS: THIAMINE 100 MG TAB PO (09:08)
[2018-08-09] MEDS: CHLORTHALIDONE 25 MG TAB PO (09:09)
[2018-08-09] MEDS: ATORVASTATIN 20 MG TAB PO (09:09)
[2018-08-09] MEDS: SPIRONOLACTONE 50 MG TAB PO ×2 (09:09→17:15)
[2018-08-09] MEDS: CitaloPRAM (CeleXA) 20 MG TAB PO (09:09)
[2018-08-09] MEDS: CLOPIDOGREL 75 MG TAB PO (09:09)
[2018-08-09] MEDS: SENOKOT S TAB PO ×2 (09:09→20:50)
[2018-08-09] MEDS: cloNIDine 0.1 MG TAB PO ×3 (09:10→20:51)
[2018-08-09 11:59] LABS: BEDSIDE GLUCOSE 206 MG/DL (80-115)
[2018-08-09 17:10] LABS: BEDSIDE GLUCOSE 126 MG/DL (80-115)
[2018-08-09 20:40] LABS: BEDSIDE GLUCOSE 215 MG/DL (80-115)
[2018-08-10 05:47] LABS: BASO # 0.1 10^3/uL (0.0-0.2); BASO % 1.2 % (0.0-1.0); EOS # 0.2 10^3/uL (0.0-0.50); EOS % 3.8 % (0.0-3.0); HEMATOCRIT 37.1 % (42.0-52.0); HEMOGLOBIN 11.5 g/dl (13.5-17.5); IMMATURE GRANULOCYTE % 1.4 % (0-3.0); LYMPH # 0.9 10^3/uL (1.5-4.5); MEAN CORPUSCULAR HEMOGLOBIN 31.9 pg (27.0-33.0); MEAN CORPUSCULAR VOLUME 103.1 fl (80.0-96.0); MONO # 0.9 10^3/uL (0.0-0.8); MONO % 20.5 % (0.0-5.0); NEUTROPHILS # 2.3 10^3/uL (1.8-7.7); NEUTROPHILS % 53.1 % (36.0-66.0); PLATELET COUNT, AUTOMATED 306 10^3/uL (150-450); RED CELL DISTRIBUTION WIDTH 17.9 % (11.5-14.5); WHITE BLOOD COUNT 4.3 10^3/uL (4.0-10.0)
[2018-08-10] MEDS: LevoFLOXacin 500 MG TABLET PO (05:53)
[2018-08-10] MEDS: SLF 3 ML SYR IV ×3 (05:53→21:30)
[2018-08-10] MEDS: PERCOCET 5MG/325MG TAB PO (05:53)
[2018-08-10 06:22] LABS: ALBUMIN 1.8 GM/DL (3.2-5.2); ALBUMIN/GLOBULIN RATIO 0.46 (1.00-1.93); ALKALINE PHOSPHATASE 76 U/L (45-117); ALT/SGPT 16 U/L (12-78); ANION GAP 8 MEQ/L (8-16); AST/SGOT 25 U/L (7-37); BILIRUBIN,TOTAL 0.3 MG/DL (0.2-1.0); BLOOD UREA NITROGEN 26 MG/DL (7-18); C REACTIVE PROTEIN QUANTITATIV 5.29 MG/DL (0.00-0.30); CALCIUM LEVEL 8.1 MG/DL (8.8-10.2); CARBON DIOXIDE LEVEL 21 MEQ/L (21-32); CHLORIDE LEVEL 100 MEQ/L (98-107); GLOMERULAR FILTRATION RATE 13.6 (>49); GLUCOSE, FASTING 162 MG/DL (70-100); POTASSIUM SERUM 4.9 MEQ/L (3.5-5.1); SODIUM LEVEL 129 MEQ/L (136-145); TOTAL PROTEIN 5.7 GM/DL (6.4-8.2)
[2018-08-10] MEDS: LEVEMIR (INSULIN DETEMIR) 1 UNITS/0.01ML SC (08:29)
[2018-08-10] MEDS: ASPIRIN 81 MG ENTERIC TAB PO (08:30)
[2018-08-10] MEDS: HumaLOG INSULIN (NovoLOG) PER UNIT SC ×4 (08:30→21:00)
[2018-08-10] MEDS: THIAMINE 100 MG TAB PO (08:30)
[2018-08-10] MEDS: ATORVASTATIN 20 MG TAB PO (08:30)
[2018-08-10] MEDS: PANTOPRAZOLE 40MG TAB (PROTONIX) PO ×2 (08:30→21:29)
[2018-08-10] MEDS: FOLIC ACID 1 MG TAB PO (08:30)
[2018-08-10] MEDS: CHLORTHALIDONE 25 MG TAB PO (08:30)
[2018-08-10] MEDS: FERROUS SULFATE 325MG TAB PO (08:30)
[2018-08-10] MEDS: CLOPIDOGREL 75 MG TAB PO (08:30)
[2018-08-10] MEDS: SPIRONOLACTONE 50 MG TAB PO ×2 (08:31→17:02)
[2018-08-10] MEDS: CitaloPRAM (CeleXA) 20 MG TAB PO (08:31)
[2018-08-10] MEDS: SENOKOT S TAB PO ×2 (08:31→21:00)
[2018-08-10] MEDS: cloNIDine 0.1 MG TAB PO ×3 (08:31→21:29)
[2018-08-10 12:05] LABS: BEDSIDE GLUCOSE 417 MG/DL (80-115)
[2018-08-10 16:58] LABS: BEDSIDE GLUCOSE 230 MG/DL (80-115)
[2018-08-10 20:51] LABS: BEDSIDE GLUCOSE 87 MG/DL (80-115)
[2018-08-11] MEDS: ATORVASTATIN 20 MG TAB PO (05:42)
[2018-08-11] MEDS: SLF 3 ML SYR IV ×3 (05:42→20:41)
[2018-08-11] MEDS: CitaloPRAM (CeleXA) 20 MG TAB PO (05:43)
[2018-08-11] MEDS: cloNIDine 0.1 MG TAB PO ×3 (05:43→20:41)
[2018-08-11] MEDS: CLOPIDOGREL 75 MG TAB PO (05:44)
[2018-08-11] MEDS: THIAMINE 100 MG TAB PO (05:44)
[2018-08-11] MEDS: SPIRONOLACTONE 50 MG TAB PO ×2 (05:44→16:27)
[2018-08-11] MEDS: PANTOPRAZOLE 40MG TAB (PROTONIX) PO ×2 (05:44→20:42)
[2018-08-11] MEDS: CHLORTHALIDONE 25 MG TAB PO (05:44)
[2018-08-11] MEDS: FOLIC ACID 1 MG TAB PO (05:44)
[2018-08-11] MEDS: FERROUS SULFATE 325MG TAB PO (05:44)
[2018-08-11] MEDS: ASPIRIN 81 MG ENTERIC TAB PO (05:45)
[2018-08-11 06:02] LABS: BASO # 0.1 10^3/uL (0.0-0.2); BASO % 1.5 % (0.0-1.0); EOS # 0.2 10^3/uL (0.0-0.50); EOS % 3.9 % (0.0-3.0); HEMATOCRIT 31.8 % (42.0-52.0); HEMOGLOBIN 10.4 g/dl (13.5-17.5); IMMATURE GRANULOCYTE % 1.7 % (0-3.0); LYMPH % 24.1 % (24.0-44.0); MEAN CORPUSCULAR HEMOGLOBIN 31.8 pg (27.0-33.0); MEAN CORPUSCULAR HGB CONC 32.7 g/dl (32.0-36.5); MEAN CORPUSCULAR VOLUME 97.2 fl (80.0-96.0); MONO # 0.6 10^3/uL (0.0-0.8); NEUTROPHILS # 2.2 10^3/uL (1.8-7.7); NEUTROPHILS % 53.8 % (36.0-66.0); PLATELET COUNT, AUTOMATED 360 10^3/uL (150-450); RED BLOOD COUNT 3.27 10^6/uL (4.30-6.10); RED CELL DISTRIBUTION WIDTH 17.2 % (11.5-14.5); WHITE BLOOD COUNT 4.1 10^3/uL (4.0-10.0)
[2018-08-11 06:05] LABS: ADD MANUAL DIFFER NO; DIFF SLIDE NUMBER 27
[2018-08-11 06:25] LABS: ALBUMIN 2.2 GM/DL (3.2-5.2); ALBUMIN/GLOBULIN RATIO 0.65 (1.00-1.93); ALKALINE PHOSPHATASE 76 U/L (45-117); ALT/SGPT 17 U/L (12-78); ANION GAP 10 MEQ/L (8-16); AST/SGOT 21 U/L (7-37); BILIRUBIN,TOTAL 0.3 MG/DL (0.2-1.0); BLOOD UREA NITROGEN 38 MG/DL (7-18); C REACTIVE PROTEIN QUANTITATIV 3.66 MG/DL (0.00-0.30); CALCIUM LEVEL 7.9 MG/DL (8.8-10.2); CARBON DIOXIDE LEVEL 24 MEQ/L (21-32); CHLORIDE LEVEL 99 MEQ/L (98-107); CREATININE FOR GFR 5.68 MG/DL (0.70-1.30); GLOMERULAR FILTRATION RATE 10.7 (>49); GLUCOSE, FASTING 50 MG/DL (70-100); POTASSIUM SERUM 4.9 MEQ/L (3.5-5.1); SODIUM LEVEL 133 MEQ/L (136-145); TOTAL PROTEIN 5.6 GM/DL (6.4-8.2)
[2018-08-11] MEDS: HumaLOG INSULIN (NovoLOG) PER UNIT SC ×4 (07:30→20:40)
[2018-08-11 08:17] LABS: BEDSIDE GLUCOSE 191 MG/DL (80-115)
[2018-08-11] MEDS: LEVEMIR (INSULIN DETEMIR) 1 UNITS/0.01ML SC (09:00)
[2018-08-11] MEDS: SENOKOT S TAB PO ×2 (09:00→20:41)
[2018-08-11] MEDS: LIDOCAINE 1% SDV 5 ML VIAL SQ (10:30)
[2018-08-11 13:23] LABS: BEDSIDE GLUCOSE 191 MG/DL (80-115)
[2018-08-11 16:51] LABS: BEDSIDE GLUCOSE 442 MG/DL (80-115)
[2018-08-11 20:05] LABS: BEDSIDE GLUCOSE 309 MG/DL (80-115)
[2018-08-12] MEDS: SLF 3 ML SYR IV ×2 (05:11→14:00)
[2018-08-12] MEDS: LevoFLOXacin 500 MG TABLET PO (05:11)
[2018-08-12 06:34] LABS: EOS # 0.1 10^3/uL (0.0-0.50); EOS % 3.4 % (0.0-3.0); HEMATOCRIT 33.2 % (42.0-52.0); IMMATURE GRANULOCYTE % 1.3 % (0-3.0); LYMPH # 1.1 10^3/uL (1.5-4.5); LYMPH % 27.3 % (24.0-44.0); MEAN CORPUSCULAR HEMOGLOBIN 32.2 pg (27.0-33.0); MEAN CORPUSCULAR HGB CONC 33.1 g/dl (32.0-36.5); MEAN CORPUSCULAR VOLUME 97.1 fl (80.0-96.0); MONO # 0.6 10^3/uL (0.0-0.8); MONO % 16.7 % (0.0-5.0); NEUTROPHILS # 1.9 10^3/uL (1.8-7.7); NEUTROPHILS % 50.3 % (36.0-66.0); PLATELET COUNT, AUTOMATED 380 10^3/uL (150-450); RED BLOOD COUNT 3.42 10^6/uL (4.30-6.10); RED CELL DISTRIBUTION WIDTH 17.3 % (11.5-14.5); WHITE BLOOD COUNT 3.8 10^3/uL (4.0-10.0)
[2018-08-12 07:01] LABS: ALBUMIN 2.4 GM/DL (3.2-5.2); ALBUMIN/GLOBULIN RATIO 0.62 (1.00-1.93); ALKALINE PHOSPHATASE 91 U/L (45-117); ALT/SGPT 23 U/L (12-78); ANION GAP 10 MEQ/L (8-16); AST/SGOT 23 U/L (7-37); BILIRUBIN,TOTAL 0.4 MG/DL (0.2-1.0); BLOOD UREA NITROGEN 29 MG/DL (7-18); C REACTIVE PROTEIN QUANTITATIV 3.16 MG/DL (0.00-0.30); CARBON DIOXIDE LEVEL 29 MEQ/L (21-32); CHLORIDE LEVEL 96 MEQ/L (98-107); CREATININE FOR GFR 3.96 MG/DL (0.70-1.30); GLOMERULAR FILTRATION RATE 16.2 (>49); GLUCOSE, FASTING 62 MG/DL (70-100); SODIUM LEVEL 135 MEQ/L (136-145); TOTAL PROTEIN 6.3 GM/DL (6.4-8.2)
[2018-08-12 07:06] LABS: BEDSIDE GLUCOSE 72 MG/DL (80-115)
[2018-08-12] MEDS: HumaLOG INSULIN (NovoLOG) PER UNIT SC ×3 (07:30→16:47)
[2018-08-12] MEDS: LEVEMIR (INSULIN DETEMIR) 1 UNITS/0.01ML SC (09:00)
[2018-08-12] MEDS: SENOKOT S TAB PO (09:00)
[2018-08-12] MEDS: ASPIRIN 81 MG ENTERIC TAB PO (10:56)
[2018-08-12] MEDS: SPIRONOLACTONE 50 MG TAB PO ×2 (10:56→16:28)
[2018-08-12] MEDS: CALCITRIOL 0.25 MCG CAP (S0169) PO (10:56)
[2018-08-12] MEDS: PANTOPRAZOLE 40MG TAB (PROTONIX) PO (10:57)
[2018-08-12] MEDS: ATORVASTATIN 20 MG TAB PO (10:57)
[2018-08-12] MEDS: FERROUS SULFATE 325MG TAB PO (10:58)
[2018-08-12] MEDS: FOLIC ACID 1 MG TAB PO (10:58)
[2018-08-12] MEDS: cloNIDine 0.1 MG TAB PO ×2 (10:58→16:29)
[2018-08-12] MEDS: CitaloPRAM (CeleXA) 20 MG TAB PO (10:58)
[2018-08-12] MEDS: CHLORTHALIDONE 25 MG TAB PO (10:59)
[2018-08-12] MEDS: CLOPIDOGREL 75 MG TAB PO (10:59)
[2018-08-12] MEDS: THIAMINE 100 MG TAB PO (10:59)
[2018-08-12] MEDS: amLODIPine 5 MG TAB PO (11:14)
[2018-08-12 11:22] LABS: BEDSIDE GLUCOSE 323 MG/DL (80-115)
[2018-08-12 16:30] LABS: BEDSIDE GLUCOSE 358 MG/DL (80-115)
== END 2018-08-12 17:19 | DRG 856 ==
LOC: M ICU 07-26 08:03 → M MSPAV 08-05 23:09 → M ED 18:55 → M ED INP 20:22 → M MS5PR 22:06
PROC: 0KBG0ZZ Excision of Left Trunk Muscle, Open Approach (ICD-10-PCS; principal; 2018-07-29 15:15)
PROC: 30233N1 Transfusion of Nonautologous Red Blood Cells into Peripheral Vein, Percutaneous Approach (ICD-10-PCS; 2018-07-29 15:15)
PROC: 30233K1 Transfusion of Nonautologous Frozen Plasma into Peripheral Vein, Percutaneous Approach (ICD-10-PCS; 2018-07-29 15:15)
PROC: 30233R1 Transfusion of Nonautologous Platelets into Peripheral Vein, Percutaneous Approach (ICD-10-PCS; 2018-07-29 15:15)
PROC: 5A1D70Z Performance of Urinary Filtration, Intermittent, Less than 6 Hours Per Day (ICD-10-PCS; 2018-07-29 15:15)
PROC: 04UL0KZ Supplement Left Femoral Artery with Nonautologous Tissue Substitute, Open Approach (ICD-10-PCS; 2018-07-29 15:15)
PROC: 0KBG0ZZ Excision of Left Trunk Muscle, Open Approach (ICD-10-PCS; 2018-07-29 15:15)
PROC: 0BH17EZ Insertion of Endotracheal Airway into Trachea, Via Natural or Artificial Opening (ICD-10-PCS; 2018-07-29 15:15)
PROC: 5A1935Z Respiratory Ventilation, Less than 24 Consecutive Hours (ICD-10-PCS; 2018-07-29 15:15)
DX: T81.49XA Infection following a procedure, other surgical site, initial encounter (principal); N18.6 End stage renal disease; I46.9 Cardiac arrest, cause unspecified; A41.50 Gram-negative sepsis, unspecified; G93.41 Metabolic encephalopathy; E11.11 Type 2 diabetes mellitus with ketoacidosis with coma; G93.1 Anoxic brain damage, not elsewhere classified; I97.638 Postprocedural hematoma of a circulatory system organ or structure following other circulatory system procedure; N25.81 Secondary hyperparathyroidism of renal origin; S22.41XA Multiple fractures of ribs, right side, initial encounter for closed fracture; E87.1 Hypo-osmolality and hyponatremia; D62 Acute posthemorrhagic anemia; R47.01 Aphasia; I15.0 Renovascular hypertension; E11.51 Type 2 diabetes mellitus with diabetic peripheral angiopathy without gangrene; I25.2 Old myocardial infarction; I25.10 Atherosclerotic heart disease of native coronary artery without angina pectoris; D63.1 Anemia in chronic kidney disease; F03.90 Unspecified dementia, unspecified severity, without behavioral disturbance, psychotic disturbance, mood disturbance, and anxiety; R74.0 Nonspecific elevation of levels of transaminase and lactic acid dehydrogenase [LDH]; I69.321 Dysphasia following cerebral infarction; I69.392 Facial weakness following cerebral infarction; K21.9 Gastro-esophageal reflux disease without esophagitis; E11.65 Type 2 diabetes mellitus with hyperglycemia; E11.22 Type 2 diabetes mellitus with diabetic chronic kidney disease; Z79.4 Long term (current) use of insulin; Z95.5 Presence of coronary angioplasty implant and graft; Z89.422 Acquired absence of other left toe(s); Z99.2 Dependence on renal dialysis; Z98.62 Peripheral vascular angioplasty status; Z88.1 Allergy status to other antibiotic agents; Z88.2 Allergy status to sulfonamides; Z88.6 Allergy status to analgesic agent; Z88.8 Allergy status to other drugs, medicaments and biological substances; Z87.891 Personal history of nicotine dependence; Z79.899 Other long term (current) drug therapy; Z79.82 Long term (current) use of aspirin; E87.6 Hypokalemia; R33.9 Retention of urine, unspecified; Y83.1 Surgical operation with implant of artificial internal device as the cause of abnormal reaction of the patient, or of later complication, without mention of misadventure at the time of the procedure; X58.XXXA Exposure to other specified factors, initial encounter; Y92.238 Other place in hospital as the place of occurrence of the external cause

== ENCOUNTER 2018-08-12 17:20 | Inpatient (IN) | payer MEDICARE ==
[~2018-08-12 17:20] MED LIST changes: +DEXTROSE 50% 50 ML SYRINGE IV; +GLUCAGON FOR INJ 1 MG VIAL (J1610) SC; +GLUCOSE 4 GM CHEW TABLET PO; +IPRATROPIUM 0.5MG/ALBUTEROL 2.5MG INH SOL UD 3ML (DUONEB)(J7620) NEB; -LIDOCAINE 2% INJ 100 MG/5 ML SDV (FOR ANES.) As Ordered; -MIDAZOLAM INJ 2 MG/2 ML VIAL (J2250) As Ordered; +ONDANSETRON 4 MG TAB (S0181) PO; -ONDANSETRON 4MG/2ML VIAL (J2405) As Ordered; -PROPOFOL 200 MG/20 ML VIAL As Ordered; -dexameTHASONE 4 MG/ML 1ML VIAL (J1100) As Ordered; -fentaNYL 100 MCG/2 ML INJECTION (J3010) As Ordered; +hydrOXYzine 25 MG TAB PO
[2018-08-12] MEDS: HumaLOG INSULIN (NovoLOG) PER UNIT SC ×2 (17:30)
[2018-08-12 19:06] LABS: BEDSIDE GLUCOSE 333 MG/DL (80-115)
[2018-08-12] MEDS: cloNIDine 0.2 MG TAB PO (20:56)
[2018-08-12] MEDS: HEPARIN SOD (PORCINE) 5000 UNITS/ML VIAL SC (20:57)
[2018-08-12] MEDS: FERROUS GLUCONATE 324 MG TAB PO (20:57)
[2018-08-12] MEDS: ATORVASTATIN 20 MG TAB PO (20:57)
[2018-08-12] MEDS: EUCERIN 120GM CREAM EXT (20:57)
[2018-08-12] MEDS: LEVEMIR (INSULIN DETEMIR) 1 UNITS/0.01ML SC (20:58)
[2018-08-12] MEDS: DOCUSATE SODIUM 100 MG CAP PO (21:00)
[2018-08-12] MEDS: SENNA 8.6 MG TAB (SENOKOT) PO (21:00)
[2018-08-12] MEDS: SPIRONOLACTONE 50 MG TAB PO (21:02)
[2018-08-13 03:08] LABS: APPEARANCE, URINE CLEAR (CLEAR); BACTERIA, URINE AUTO NEGATIVE (NEGATIVE); BILIRUBIN, URINE AUTO NEGATIVE (NEGATIVE); BLOOD, URINE BLOOD NEGATIVE (NEGATIVE); COLOR, URINE YELLOW (YELLOW); GLUCOSE, URINE (UA) AUTO 3+ mg/dL (NEGATIVE); KETONE, URINE AUTO NEGATIVE (NEGATIVE); LEUKOCYTE ESTERASE, URINE AUTO NEGATIVE (NEGATIVE); NITRITE, URINE AUTO NEGATIVE (NEGATIVE); PROTEIN, URINE AUTO 2+ mg/dL (NEGATIVE); RBC, URINE AUTO 2 /HPF (0-3); SPECIFIC GRAVITY URINE AUTO 1.003 (1.002-1.035); SQUAMOUS EPITHELIAL CELL UR AU 0 /HPF (0-6); UROBILINOGEN, URINE AUTO 0.2 mg/dL (0.0-2.0); WBC, URINE AUTO 0 /HPF (0-3)
[2018-08-13 06:39] LABS: BEDSIDE GLUCOSE 74 MG/DL (80-115)
[2018-08-13 06:55] LABS: EOS # 0.1 10^3/uL (0.0-0.50); EOS % 2.9 % (0.0-3.0); HEMATOCRIT 33.1 % (42.0-52.0); HEMOGLOBIN 11.1 g/dl (13.5-17.5); IMMATURE GRANULOCYTE % 1.2 % (0-3.0); LYMPH # 1.2 10^3/uL (1.5-4.5); LYMPH % 28.9 % (24.0-44.0); MEAN CORPUSCULAR HEMOGLOBIN 32.4 pg (27.0-33.0); MEAN CORPUSCULAR HGB CONC 33.5 g/dl (32.0-36.5); MEAN CORPUSCULAR VOLUME 96.5 fl (80.0-96.0); MONO # 0.6 10^3/uL (0.0-0.8); MONO % 14.8 % (0.0-5.0); NEUTROPHILS # 2.1 10^3/uL (1.8-7.7); NEUTROPHILS % 51.2 % (36.0-66.0); PLATELET COUNT, AUTOMATED 361 10^3/uL (150-450); RED BLOOD COUNT 3.43 10^6/uL (4.30-6.10); RED CELL DISTRIBUTION WIDTH 17.5 % (11.5-14.5); WHITE BLOOD COUNT 4.2 10^3/uL (4.0-10.0)
[2018-08-13 07:13] LABS: ALBUMIN 2.3 GM/DL (3.2-5.2); ALBUMIN/GLOBULIN RATIO 0.62 (1.00-1.93); ALKALINE PHOSPHATASE 89 U/L (45-117); ALT/SGPT 19 U/L (12-78); ANION GAP 9 MEQ/L (8-16); AST/SGOT 18 U/L (7-37); BILIRUBIN,TOTAL 0.3 MG/DL (0.2-1.0); BLOOD UREA NITROGEN 39 MG/DL (7-18); CALCIUM LEVEL 8.1 MG/DL (8.8-10.2); CARBON DIOXIDE LEVEL 26 MEQ/L (21-32); CHLORIDE LEVEL 98 MEQ/L (98-107); CREATININE FOR GFR 5.35 MG/DL (0.70-1.30); GLOMERULAR FILTRATION RATE 11.5 (>49); GLUCOSE, FASTING 81 MG/DL (70-100); POTASSIUM SERUM 4.2 MEQ/L (3.5-5.1); SODIUM LEVEL 133 MEQ/L (136-145)
[2018-08-13] MEDS: HumaLOG INSULIN (NovoLOG) PER UNIT SC ×6 (07:30→16:24)
[2018-08-13] MEDS: CHLORTHALIDONE 25 MG TAB PO (08:49)
[2018-08-13] MEDS: FOLIC ACID 1 MG TAB PO (08:49)
[2018-08-13] MEDS: CLOPIDOGREL 75 MG TAB PO (08:49)
[2018-08-13] MEDS: CitaloPRAM (CeleXA) 20 MG TAB PO (08:50)
[2018-08-13] MEDS: SPIRONOLACTONE 50 MG TAB PO ×2 (08:50→16:56)
[2018-08-13] MEDS: ASPIRIN 81 MG ENTERIC TAB PO (08:50)
[2018-08-13] MEDS: DOCUSATE SODIUM 100 MG CAP PO ×2 (08:50→21:00)
[2018-08-13] MEDS: cloNIDine 0.2 MG TAB PO ×3 (08:50→21:16)
[2018-08-13] MEDS: PANTOPRAZOLE 40MG TAB (PROTONIX) PO (08:50)
[2018-08-13] MEDS: amLODIPine 5 MG TAB PO (08:50)
[2018-08-13] MEDS: FERROUS GLUCONATE 324 MG TAB PO (08:50)
[2018-08-13] MEDS: HEPARIN SOD (PORCINE) 5000 UNITS/ML VIAL SC ×2 (08:51→21:17)
[2018-08-13] MEDS: EUCERIN 120GM CREAM EXT ×2 (08:51→21:18)
[2018-08-13] MEDS: THIAMINE HCL 200 MG/2 ML VIAL (J3411) IM (08:51)
[2018-08-13] MEDS ORDERED: amLODIPine 5 MG TAB PO (10:45)
[2018-08-13 12:00] LABS: BEDSIDE GLUCOSE 127 MG/DL (80-115)
[2018-08-13] MEDS: amLODIPine 10 MG TAB PO (12:35)
[2018-08-13 16:25] LABS: BEDSIDE GLUCOSE 84 MG/DL (80-115)
[2018-08-13] MEDS: ACETAMINOPHEN TAB 650MG DOSE (2X325MG) PO (16:56)
[2018-08-13 20:17] LABS: BEDSIDE GLUCOSE 158 MG/DL (80-115)
[2018-08-13] MEDS: SENNA 8.6 MG TAB (SENOKOT) PO (21:00)
[2018-08-13] MEDS: ATORVASTATIN 20 MG TAB PO (21:16)
[2018-08-13] MEDS: LEVEMIR (INSULIN DETEMIR) 1 UNITS/0.01ML SC (21:17)
[2018-08-13] MEDS: IPRATROPIUM 0.5MG/ALBUTEROL 2.5MG INH SOL UD 3ML (DUONEB)(J7620) NEB (21:30)
[2018-08-14 06:50] LABS: BASO # 0.1 10^3/uL (0.0-0.2); BASO % 1.2 % (0.0-1.0); EOS # 0.2 10^3/uL (0.0-0.50); EOS % 4.2 % (0.0-3.0); HEMATOCRIT 33.3 % (42.0-52.0); HEMOGLOBIN 11.3 g/dl (13.5-17.5); IMMATURE GRANULOCYTE % 0.9 % (0-3.0); LYMPH # 1.1 10^3/uL (1.5-4.5); LYMPH % 25.1 % (24.0-44.0); MEAN CORPUSCULAR HEMOGLOBIN 32.4 pg (27.0-33.0); MEAN CORPUSCULAR HGB CONC 33.9 g/dl (32.0-36.5); MEAN CORPUSCULAR VOLUME 95.4 fl (80.0-96.0); MONO # 0.6 10^3/uL (0.0-0.8); MONO % 13.3 % (0.0-5.0); NEUTROPHILS # 2.4 10^3/uL (1.8-7.7); NEUTROPHILS % 55.3 % (36.0-66.0); PLATELET COUNT, AUTOMATED 336 10^3/uL (150-450); RED BLOOD COUNT 3.49 10^6/uL (4.30-6.10); RED CELL DISTRIBUTION WIDTH 17.3 % (11.5-14.5); WHITE BLOOD COUNT 4.3 10^3/uL (4.0-10.0)
[2018-08-14 07:21] LABS: ANION GAP 10 MEQ/L (8-16); BLOOD UREA NITROGEN 46 MG/DL (7-18); CALCIUM LEVEL 7.7 MG/DL (8.8-10.2); CARBON DIOXIDE LEVEL 25 MEQ/L (21-32); CHLORIDE LEVEL 98 MEQ/L (98-107); CREATININE FOR GFR 6.25 MG/DL (0.70-1.30); GLOMERULAR FILTRATION RATE 9.6 (>49); GLUCOSE, FASTING 108 MG/DL (70-100); POTASSIUM SERUM 4.5 MEQ/L (3.5-5.1); SODIUM LEVEL 133 MEQ/L (136-145)
[2018-08-14] MEDS: IPRATROPIUM 0.5MG/ALBUTEROL 2.5MG INH SOL UD 3ML (DUONEB)(J7620) NEB ×2 (08:00→20:40)
[2018-08-14] MEDS: HumaLOG INSULIN (NovoLOG) PER UNIT SC ×6 (08:38→17:47)
[2018-08-14] MEDS: HEPARIN SOD (PORCINE) 5000 UNITS/ML VIAL SC ×2 (08:38→21:32)
[2018-08-14] MEDS: FOLIC ACID 1 MG TAB PO (08:39)
[2018-08-14] MEDS: CitaloPRAM (CeleXA) 20 MG TAB PO (08:39)
[2018-08-14] MEDS: ASPIRIN 81 MG ENTERIC TAB PO (08:39)
[2018-08-14] MEDS: PANTOPRAZOLE 40MG TAB (PROTONIX) PO (08:39)
[2018-08-14] MEDS: CALCITRIOL 0.25 MCG CAP (S0169) PO (08:39)
[2018-08-14] MEDS: SPIRONOLACTONE 50 MG TAB PO ×2 (08:39→17:46)
[2018-08-14] MEDS: CLOPIDOGREL 75 MG TAB PO (08:40)
[2018-08-14] MEDS: DOCUSATE SODIUM 100 MG CAP PO ×2 (08:40→21:35)
[2018-08-14] MEDS: amLODIPine 10 MG TAB PO (08:40)
[2018-08-14] MEDS: CHLORTHALIDONE 25 MG TAB PO (08:40)
[2018-08-14] MEDS: cloNIDine 0.2 MG TAB PO ×3 (08:40→21:33)
[2018-08-14] MEDS: THIAMINE HCL 200 MG/2 ML VIAL (J3411) IM (08:41)
[2018-08-14] MEDS: EUCERIN 120GM CREAM EXT ×2 (08:41→21:34)
[2018-08-14] MEDS: HEPARIN 1,000 UNITS/ML 10ML VIAL (FOR RADIOLOGY& DIALYSIS ONLY) IV (11:00)
[2018-08-14] MEDS: LIDOCAINE 1% SDV 5 ML VIAL SQ (11:00)
[2018-08-14 12:02] LABS: BEDSIDE GLUCOSE 341 MG/DL (80-115)
[2018-08-14] MEDS: LEVEMIR (INSULIN DETEMIR) 1 UNITS/0.01ML SC ×2 (12:41→21:35)
[2018-08-14 17:18] LABS: BEDSIDE GLUCOSE 145 MG/DL (80-115)
[2018-08-14] MEDS: LACTULOSE 20 GM/30 ML SYRUP UD PO (17:46)
[2018-08-14 20:11] LABS: BEDSIDE GLUCOSE 111 MG/DL (80-115)
[2018-08-14] MEDS: GABAPENTIN 100 MG CAP PO (21:32)
[2018-08-14] MEDS: SENNA 8.6 MG TAB (SENOKOT) PO (21:32)
[2018-08-14] MEDS: ATORVASTATIN 20 MG TAB PO (21:33)
[2018-08-14] MEDS: ACETAMINOPHEN TAB 650MG DOSE (2X325MG) PO (21:34)
[2018-08-15 06:57] LABS: BASO % 0.9 % (0.0-1.0); EOS # 0.1 10^3/uL (0.0-0.50); EOS % 1.7 % (0.0-3.0); HEMATOCRIT 32.6 % (42.0-52.0); IMMATURE GRANULOCYTE % 1.2 % (0-3.0); LYMPH # 0.7 10^3/uL (1.5-4.5); LYMPH % 21.3 % (24.0-44.0); MEAN CORPUSCULAR HEMOGLOBIN 32.4 pg (27.0-33.0); MEAN CORPUSCULAR HGB CONC 33.7 g/dl (32.0-36.5); MEAN CORPUSCULAR VOLUME 96.2 fl (80.0-96.0); MONO # 0.4 10^3/uL (0.0-0.8); MONO % 11.8 % (0.0-5.0); NEUTROPHILS # 2.2 10^3/uL (1.8-7.7); NEUTROPHILS % 63.1 % (36.0-66.0); PLATELET COUNT, AUTOMATED 328 10^3/uL (150-450); RED BLOOD COUNT 3.39 10^6/uL (4.30-6.10); RED CELL DISTRIBUTION WIDTH 17.7 % (11.5-14.5); WHITE BLOOD COUNT 3.5 10^3/uL (4.0-10.0)
[2018-08-15 07:13] LABS: AMMONIA 11 uMOL/L (<32)
[2018-08-15 07:24] LABS: ANION GAP 9 MEQ/L (8-16); BLOOD UREA NITROGEN 26 MG/DL (7-18); CALCIUM LEVEL 7.9 MG/DL (8.8-10.2); CARBON DIOXIDE LEVEL 28 MEQ/L (21-32); CHLORIDE LEVEL 98 MEQ/L (98-107); CREATININE FOR GFR 4.27 MG/DL (0.70-1.30); GLOMERULAR FILTRATION RATE 14.9 (>49); GLUCOSE, FASTING 292 MG/DL (70-100); SODIUM LEVEL 135 MEQ/L (136-145)
[2018-08-15] MEDS: HumaLOG INSULIN (NovoLOG) PER UNIT SC ×5 (07:30→21:00)
[2018-08-15] MEDS: IPRATROPIUM 0.5MG/ALBUTEROL 2.5MG INH SOL UD 3ML (DUONEB)(J7620) NEB ×2 (07:47→20:00)
[2018-08-15] MEDS: amLODIPine 10 MG TAB PO (08:49)
[2018-08-15] MEDS: SPIRONOLACTONE 50 MG TAB PO ×2 (08:50→17:11)
[2018-08-15] MEDS: PANTOPRAZOLE 40MG TAB (PROTONIX) PO (08:50)
[2018-08-15] MEDS: FOLIC ACID 1 MG TAB PO (08:50)
[2018-08-15] MEDS: DOCUSATE SODIUM 100 MG CAP PO ×2 (08:50→21:19)
[2018-08-15] MEDS: CitaloPRAM (CeleXA) 20 MG TAB PO (08:50)
[2018-08-15] MEDS: CHLORTHALIDONE 25 MG TAB PO (08:50)
[2018-08-15] MEDS: ASPIRIN 81 MG ENTERIC TAB PO (08:50)
[2018-08-15] MEDS: cloNIDine 0.2 MG TAB PO ×3 (08:50→21:19)
[2018-08-15] MEDS: CLOPIDOGREL 75 MG TAB PO (08:50)
[2018-08-15] MEDS: THIAMINE HCL 200 MG/2 ML VIAL (J3411) IM (08:51)
[2018-08-15] MEDS: HEPARIN SOD (PORCINE) 5000 UNITS/ML VIAL SC ×2 (08:52→21:18)
[2018-08-15] MEDS: LEVEMIR (INSULIN DETEMIR) 1 UNITS/0.01ML SC ×2 (08:52→21:00)
[2018-08-15] MEDS: EUCERIN 120GM CREAM EXT ×2 (08:53→21:20)
[2018-08-15] MEDS: BISACODYL 10 MG SUPP PR (08:58)
[2018-08-15] MEDS: ACETAMINOPHEN TAB 650MG DOSE (2X325MG) PO (08:59)
[2018-08-15 11:46] LABS: BEDSIDE GLUCOSE 548 MG/DL (80-115)
[2018-08-15 12:37] LABS: BEDSIDE GLUCOSE CONFIRMATION 539 MG/DL (LESS THAN 200)
[2018-08-15 14:07] LABS: BEDSIDE GLUCOSE 400 MG/DL (80-115)
[2018-08-15 16:30] LABS: BEDSIDE GLUCOSE 189 MG/DL (80-115)
[2018-08-15 19:56] LABS: BEDSIDE GLUCOSE 83 MG/DL (80-115)
[2018-08-15] MEDS: SENNA 8.6 MG TAB (SENOKOT) PO (21:18)
[2018-08-15] MEDS: GABAPENTIN 100 MG CAP PO (21:19)
[2018-08-15] MEDS: ATORVASTATIN 20 MG TAB PO (21:19)
[2018-08-16 05:22] LABS: BEDSIDE GLUCOSE 87 MG/DL (80-115)
[2018-08-16 06:48] LABS: HEMATOCRIT 32.7 % (42.0-52.0); HEMOGLOBIN 10.7 g/dl (13.5-17.5); MEAN CORPUSCULAR HGB CONC 32.7 g/dl (32.0-36.5); MEAN CORPUSCULAR VOLUME 97.9 fl (80.0-96.0); PLATELET COUNT, AUTOMATED 298 10^3/uL (150-450); RED BLOOD COUNT 3.34 10^6/uL (4.30-6.10); RED CELL DISTRIBUTION WIDTH 17.6 % (11.5-14.5); WHITE BLOOD COUNT 3.8 10^3/uL (4.0-10.0)
[2018-08-16 07:11] LABS: ALBUMIN 2.3 GM/DL (3.2-5.2); ALBUMIN/GLOBULIN RATIO 0.62 (1.00-1.93); ALKALINE PHOSPHATASE 79 U/L (45-117); ALT/SGPT 17 U/L (12-78); ANION GAP 12 MEQ/L (8-16); AST/SGOT 18 U/L (7-37); BILIRUBIN,TOTAL 0.3 MG/DL (0.2-1.0); BLOOD UREA NITROGEN 36 MG/DL (7-18); CALCIUM LEVEL 7.5 MG/DL (8.8-10.2); CARBON DIOXIDE LEVEL 26 MEQ/L (21-32); CHLORIDE LEVEL 98 MEQ/L (98-107); CREATININE FOR GFR 5.56 MG/DL (0.70-1.30); GLUCOSE, FASTING 133 MG/DL (70-100); SODIUM LEVEL 136 MEQ/L (136-145)
[2018-08-16] MEDS: HumaLOG INSULIN (NovoLOG) PER UNIT SC ×4 (07:30→21:00)
[2018-08-16] MEDS: IPRATROPIUM 0.5MG/ALBUTEROL 2.5MG INH SOL UD 3ML (DUONEB)(J7620) NEB ×2 (08:00→20:00)
[2018-08-16] MEDS: DOCUSATE SODIUM 100 MG CAP PO ×2 (09:00→21:47)
[2018-08-16] MEDS: PANTOPRAZOLE 40MG TAB (PROTONIX) PO (09:10)
[2018-08-16] MEDS: amLODIPine 10 MG TAB PO (09:11)
[2018-08-16] MEDS: CitaloPRAM (CeleXA) 20 MG TAB PO (09:11)
[2018-08-16] MEDS: SPIRONOLACTONE 50 MG TAB PO ×2 (09:12→17:33)
[2018-08-16] MEDS: CLOPIDOGREL 75 MG TAB PO (09:12)
[2018-08-16] MEDS: FOLIC ACID 1 MG TAB PO (09:12)
[2018-08-16] MEDS: cloNIDine 0.2 MG TAB PO ×3 (09:13→21:55)
[2018-08-16] MEDS: ASPIRIN 81 MG ENTERIC TAB PO (09:14)
[2018-08-16] MEDS: CHLORTHALIDONE 25 MG TAB PO (09:14)
[2018-08-16] MEDS: CALCITRIOL 0.25 MCG CAP (S0169) PO (09:15)
[2018-08-16] MEDS: HEPARIN SOD (PORCINE) 5000 UNITS/ML VIAL SC ×2 (09:15→21:47)
[2018-08-16] MEDS: EUCERIN 120GM CREAM EXT ×2 (09:16→21:48)
[2018-08-16] MEDS: LEVEMIR (INSULIN DETEMIR) 1 UNITS/0.01ML SC ×2 (09:56→21:00)
[2018-08-16] MEDS: THIAMINE HCL 200 MG/2 ML VIAL (J3411) IM (09:56)
[2018-08-16] MEDS: LIDOCAINE 1% SDV 5 ML VIAL SQ (12:00)
[2018-08-16] MEDS: HEPARIN 1,000 UNITS/ML 10ML VIAL (FOR RADIOLOGY& DIALYSIS ONLY) IV (12:00)
[2018-08-16 12:41] LABS: BEDSIDE GLUCOSE 537 MG/DL (80-115)
[2018-08-16 12:44] LABS: BEDSIDE GLUCOSE 532 MG/DL (80-115)
[2018-08-16 15:28] LABS: BEDSIDE GLUCOSE 174 MG/DL (80-115)
[2018-08-16 20:13] LABS: BEDSIDE GLUCOSE 119 MG/DL (80-115)
[2018-08-16] MEDS: SENNA 8.6 MG TAB (SENOKOT) PO (21:47)
[2018-08-16] MEDS: ATORVASTATIN 20 MG TAB PO (21:47)
[2018-08-16] MEDS: GABAPENTIN 100 MG CAP PO (21:47)
[2018-08-16] MEDS: BISACODYL 5 MG TAB PO (21:55)
[2018-08-17 06:12] LABS: BEDSIDE GLUCOSE 101 MG/DL (80-115)
[2018-08-17 06:12] LABS: BEDSIDE GLUCOSE 38 MG/DL (80-115)
[2018-08-17 06:43] LABS: BEDSIDE GLUCOSE 66 MG/DL (80-115)
[2018-08-17 06:47] LABS: BEDSIDE GLUCOSE CONFIRMATION 43 MG/DL (LESS THAN 200)
[2018-08-17] MEDS: HumaLOG INSULIN (NovoLOG) PER UNIT SC ×4 (07:30→21:00)
[2018-08-17] MEDS: IPRATROPIUM 0.5MG/ALBUTEROL 2.5MG INH SOL UD 3ML (DUONEB)(J7620) NEB ×2 (08:00→19:52)
[2018-08-17] MEDS: DOCUSATE SODIUM 100 MG CAP PO ×2 (09:00→20:56)
[2018-08-17] MEDS: LEVEMIR (INSULIN DETEMIR) 1 UNITS/0.01ML SC ×3 (09:00→21:00)
[2018-08-17] MEDS: FOLIC ACID 1 MG TAB PO (09:15)
[2018-08-17] MEDS: CLOPIDOGREL 75 MG TAB PO (09:15)
[2018-08-17] MEDS: CitaloPRAM (CeleXA) 20 MG TAB PO (09:15)
[2018-08-17] MEDS: ASPIRIN 81 MG ENTERIC TAB PO (09:15)
[2018-08-17] MEDS: THIAMINE HCL 200 MG/2 ML VIAL (J3411) IM (09:16)
[2018-08-17] MEDS: SPIRONOLACTONE 50 MG TAB PO ×2 (09:16→16:49)
[2018-08-17] MEDS: PANTOPRAZOLE 40MG TAB (PROTONIX) PO (09:16)
[2018-08-17] MEDS: HEPARIN SOD (PORCINE) 5000 UNITS/ML VIAL SC ×2 (09:17→20:57)
[2018-08-17] MEDS: EUCERIN 120GM CREAM EXT ×2 (09:18→20:57)
[2018-08-17] MEDS: cloNIDine 0.2 MG TAB PO ×3 (09:24→20:56)
[2018-08-17] MEDS: amLODIPine 10 MG TAB PO (09:25)
[2018-08-17] MEDS: CHLORTHALIDONE 25 MG TAB PO (09:25)
[2018-08-17 11:55] LABS: BEDSIDE GLUCOSE 380 MG/DL (80-115)
[2018-08-17 11:55] LABS: BEDSIDE GLUCOSE 310 MG/DL (80-115)
[2018-08-17 20:39] LABS: BEDSIDE GLUCOSE 173 MG/DL (80-115)
[2018-08-17] MEDS: ATORVASTATIN 20 MG TAB PO (20:56)
[2018-08-17] MEDS: SENNA 8.6 MG TAB (SENOKOT) PO (20:56)
[2018-08-17] MEDS: GABAPENTIN 100 MG CAP PO (20:56)
[2018-08-18 00:48] LABS: BEDSIDE GLUCOSE 102 MG/DL (80-115)
[2018-08-18 06:16] LABS: BEDSIDE GLUCOSE 89 MG/DL (80-115)
[2018-08-18] MEDS: HumaLOG INSULIN (NovoLOG) PER UNIT SC ×4 (07:29→21:14)
[2018-08-18] MEDS: IPRATROPIUM 0.5MG/ALBUTEROL 2.5MG INH SOL UD 3ML (DUONEB)(J7620) NEB ×2 (08:00→20:05)
[2018-08-18] MEDS: CLOPIDOGREL 75 MG TAB PO (08:02)
[2018-08-18] MEDS: CitaloPRAM (CeleXA) 20 MG TAB PO (08:02)
[2018-08-18] MEDS: DOCUSATE SODIUM 100 MG CAP PO ×2 (08:02→20:50)
[2018-08-18] MEDS: ASPIRIN 81 MG ENTERIC TAB PO (08:02)
[2018-08-18] MEDS: amLODIPine 10 MG TAB PO (08:03)
[2018-08-18] MEDS: PANTOPRAZOLE 40MG TAB (PROTONIX) PO (08:03)
[2018-08-18] MEDS: CHLORTHALIDONE 25 MG TAB PO (08:04)
[2018-08-18] MEDS: cloNIDine 0.2 MG TAB PO ×3 (08:04→21:48)
[2018-08-18] MEDS: FOLIC ACID 1 MG TAB PO (08:04)
[2018-08-18] MEDS: SPIRONOLACTONE 50 MG TAB PO ×2 (08:04→16:53)
[2018-08-18] MEDS: THIAMINE HCL 200 MG/2 ML VIAL (J3411) IM (08:05)
[2018-08-18] MEDS: HEPARIN SOD (PORCINE) 5000 UNITS/ML VIAL SC (08:05)
[2018-08-18] MEDS: EUCERIN 120GM CREAM EXT ×2 (08:07→21:49)
[2018-08-18] MEDS: LEVEMIR (INSULIN DETEMIR) 1 UNITS/0.01ML SC ×2 (08:07→21:14)
[2018-08-18 11:39] LABS: BEDSIDE GLUCOSE 366 MG/DL (80-115)
[2018-08-18 16:42] LABS: BEDSIDE GLUCOSE 266 MG/DL (80-115)
[2018-08-18] MEDS ORDERED: LACTULOSE 20 GM/30 ML SYRUP UD PO (20:00)
[2018-08-18] MEDS: SENNA 8.6 MG TAB (SENOKOT) PO (20:51)
[2018-08-18 21:10] LABS: BEDSIDE GLUCOSE 35 MG/DL (80-115)
[2018-08-18 21:37] LABS: BEDSIDE GLUCOSE CONFIRMATION 51 MG/DL (LESS THAN 200)
[2018-08-18] MEDS: GABAPENTIN 100 MG CAP PO (21:48)
[2018-08-18 21:49] LABS: BEDSIDE GLUCOSE 61 MG/DL (80-115)
[2018-08-18] MEDS: ATORVASTATIN 20 MG TAB PO (21:49)
[2018-08-18] MEDS ORDERED: BISACODYL 10 MG SUPP PR (22:00)
[2018-08-19 06:06] LABS: BEDSIDE GLUCOSE 49 MG/DL (80-115)
[2018-08-19 06:26] LABS: BEDSIDE GLUCOSE 81 MG/DL (80-115)
[2018-08-19] MEDS: HumaLOG INSULIN (NovoLOG) PER UNIT SC ×4 (06:59→20:38)
[2018-08-19] MEDS: ASPIRIN 81 MG ENTERIC TAB PO (07:30)
[2018-08-19] MEDS: CALCITRIOL 0.25 MCG CAP (S0169) PO (07:30)
[2018-08-19] MEDS: SPIRONOLACTONE 50 MG TAB PO ×2 (07:30→16:55)
[2018-08-19] MEDS: CLOPIDOGREL 75 MG TAB PO (07:32)
[2018-08-19] MEDS: amLODIPine 10 MG TAB PO (07:32)
[2018-08-19] MEDS: CitaloPRAM (CeleXA) 20 MG TAB PO (07:32)
[2018-08-19] MEDS: FOLIC ACID 1 MG TAB PO (07:32)
[2018-08-19] MEDS: PANTOPRAZOLE 40MG TAB (PROTONIX) PO (07:32)
[2018-08-19] MEDS: cloNIDine 0.2 MG TAB PO ×3 (07:32→20:37)
[2018-08-19] MEDS: THIAMINE HCL 200 MG/2 ML VIAL (J3411) IM (07:33)
[2018-08-19] MEDS: CHLORTHALIDONE 25 MG TAB PO (07:33)
[2018-08-19] MEDS: EUCERIN 120GM CREAM EXT ×2 (07:33→20:38)
[2018-08-19] MEDS: DOCUSATE SODIUM 100 MG CAP PO ×2 (07:37→20:37)
[2018-08-19] MEDS: IPRATROPIUM 0.5MG/ALBUTEROL 2.5MG INH SOL UD 3ML (DUONEB)(J7620) NEB ×2 (07:43→20:00)
[2018-08-19 09:50] LABS: BEDSIDE GLUCOSE 369 MG/DL (80-115)
[2018-08-19] MEDS: LEVEMIR (INSULIN DETEMIR) 1 UNITS/0.01ML SC ×2 (09:55→20:38)
[2018-08-19 10:25] LABS: HEMATOCRIT 35.8 % (42.0-52.0); HEMOGLOBIN 11.8 g/dl (13.5-17.5); MEAN CORPUSCULAR HEMOGLOBIN 32.5 pg (27.0-33.0); MEAN CORPUSCULAR VOLUME 98.6 fl (80.0-96.0); PLATELET COUNT, AUTOMATED 261 10^3/uL (150-450); RED BLOOD COUNT 3.63 10^6/uL (4.30-6.10); RED CELL DISTRIBUTION WIDTH 16.7 % (11.5-14.5); WHITE BLOOD COUNT 3.6 10^3/uL (4.0-10.0)
[2018-08-19 10:41] LABS: ALBUMIN 2.6 GM/DL (3.2-5.2); ANION GAP 10 MEQ/L (8-16); BLOOD UREA NITROGEN 45 MG/DL (7-18); CALCIUM LEVEL 8.2 MG/DL (8.8-10.2); CARBON DIOXIDE LEVEL 22 MEQ/L (21-32); CHLORIDE LEVEL 94 MEQ/L (98-107); CREATININE FOR GFR 5.81 MG/DL (0.70-1.30); GLOMERULAR FILTRATION RATE 10.4 (>49); GLUCOSE, FASTING 371 MG/DL (70-100); PHOSPHORUS LEVEL 3.8 MG/DL (2.5-4.9); POTASSIUM SERUM 5.5 MEQ/L (3.5-5.1); SODIUM LEVEL 126 MEQ/L (136-145)
[2018-08-19] MEDS: LIDOCAINE 1% SDV 5 ML VIAL SQ (11:00)
[2018-08-19] MEDS: HEPARIN 1,000 UNITS/ML 10ML VIAL (FOR RADIOLOGY& DIALYSIS ONLY) IV (11:00)
[2018-08-19 11:41] LABS: BEDSIDE GLUCOSE 356 MG/DL (80-115)
[2018-08-19 16:51] LABS: BEDSIDE GLUCOSE 106 MG/DL (80-115)
[2018-08-19 19:54] LABS: BEDSIDE GLUCOSE 88 MG/DL (80-115)
[2018-08-19] MEDS: ATORVASTATIN 20 MG TAB PO (20:37)
[2018-08-19] MEDS: GABAPENTIN 100 MG CAP PO (20:37)
[2018-08-19] MEDS: SENNA 8.6 MG TAB (SENOKOT) PO (20:37)
[2018-08-20 06:16] LABS: BEDSIDE GLUCOSE 85 MG/DL (80-115)
[2018-08-20] MEDS: HumaLOG INSULIN (NovoLOG) PER UNIT SC ×5 (07:30→20:30)
[2018-08-20 07:39] LABS: ALBUMIN 2.5 GM/DL (3.2-5.2); ANION GAP 7 MEQ/L (8-16); BLOOD UREA NITROGEN 20 MG/DL (7-18); CARBON DIOXIDE LEVEL 29 MEQ/L (21-32); CHLORIDE LEVEL 101 MEQ/L (98-107); CREATININE FOR GFR 3.54 MG/DL (0.70-1.30); GLOMERULAR FILTRATION RATE 18.4 (>49); GLUCOSE, FASTING 78 MG/DL (70-100); PHOSPHORUS LEVEL 3.2 MG/DL (2.5-4.9); POTASSIUM SERUM 4.2 MEQ/L (3.5-5.1); SODIUM LEVEL 137 MEQ/L (136-145)
[2018-08-20] MEDS: IPRATROPIUM 0.5MG/ALBUTEROL 2.5MG INH SOL UD 3ML (DUONEB)(J7620) NEB ×2 (08:00→20:00)
[2018-08-20] MEDS: THIAMINE HCL 200 MG/2 ML VIAL (J3411) IM (08:45)
[2018-08-20] MEDS: SPIRONOLACTONE 50 MG TAB PO ×2 (08:45→17:16)
[2018-08-20] MEDS: ASPIRIN 81 MG ENTERIC TAB PO (08:46)
[2018-08-20] MEDS: CitaloPRAM (CeleXA) 20 MG TAB PO (08:46)
[2018-08-20] MEDS: CHLORTHALIDONE 25 MG TAB PO (08:46)
[2018-08-20] MEDS: PANTOPRAZOLE 40MG TAB (PROTONIX) PO (08:46)
[2018-08-20] MEDS: DOCUSATE SODIUM 100 MG CAP PO ×2 (08:46→20:29)
[2018-08-20] MEDS: EUCERIN 120GM CREAM EXT ×2 (08:46→20:30)
[2018-08-20] MEDS: FOLIC ACID 1 MG TAB PO (08:46)
[2018-08-20] MEDS: cloNIDine 0.2 MG TAB PO ×3 (08:46→20:30)
[2018-08-20] MEDS: amLODIPine 10 MG TAB PO (08:46)
[2018-08-20] MEDS: CLOPIDOGREL 75 MG TAB PO (08:46)
[2018-08-20 10:11] LABS: BEDSIDE GLUCOSE 293 MG/DL (80-115)
[2018-08-20] MEDS: LEVEMIR (INSULIN DETEMIR) 1 UNITS/0.01ML SC ×2 (10:14→20:30)
[2018-08-20 11:40] LABS: BEDSIDE GLUCOSE 289 MG/DL (80-115)
[2018-08-20 16:41] LABS: BEDSIDE GLUCOSE 262 MG/DL (80-115)
[2018-08-20 20:27] LABS: BEDSIDE GLUCOSE 78 MG/DL (80-115)
[2018-08-20] MEDS: ATORVASTATIN 20 MG TAB PO (20:29)
[2018-08-20] MEDS: GABAPENTIN 100 MG CAP PO (20:29)
[2018-08-20] MEDS: SENNA 8.6 MG TAB (SENOKOT) PO (20:29)
[2018-08-21 06:10] LABS: BEDSIDE GLUCOSE 91 MG/DL (80-115)
[2018-08-21] MEDS: HumaLOG INSULIN (NovoLOG) PER UNIT SC ×7 (07:30→21:00)
[2018-08-21] MEDS: ASPIRIN 81 MG ENTERIC TAB PO (07:56)
[2018-08-21] MEDS: CALCITRIOL 0.25 MCG CAP (S0169) PO (07:57)
[2018-08-21] MEDS: cloNIDine 0.2 MG TAB PO (07:57)
[2018-08-21] MEDS: CitaloPRAM (CeleXA) 20 MG TAB PO (07:57)
[2018-08-21] MEDS: CHLORTHALIDONE 25 MG TAB PO (07:58)
[2018-08-21] MEDS: DOCUSATE SODIUM 100 MG CAP PO ×2 (07:58→21:08)
[2018-08-21] MEDS: CLOPIDOGREL 75 MG TAB PO (07:58)
[2018-08-21] MEDS: FOLIC ACID 1 MG TAB PO (08:00)
[2018-08-21] MEDS: IPRATROPIUM 0.5MG/ALBUTEROL 2.5MG INH SOL UD 3ML (DUONEB)(J7620) NEB ×2 (08:00→20:00)
[2018-08-21] MEDS: amLODIPine 10 MG TAB PO (08:00)
[2018-08-21] MEDS: EUCERIN 120GM CREAM EXT ×2 (08:01→21:08)
[2018-08-21] MEDS: THIAMINE HCL 200 MG/2 ML VIAL (J3411) IM (08:01)
[2018-08-21] MEDS: PANTOPRAZOLE 40MG TAB (PROTONIX) PO (08:05)
[2018-08-21] MEDS: SPIRONOLACTONE 50 MG TAB PO ×2 (08:05→17:02)
[2018-08-21] MEDS: LEVEMIR (INSULIN DETEMIR) 1 UNITS/0.01ML SC ×2 (10:00→21:00)
[2018-08-21 10:30] LABS: BEDSIDE GLUCOSE 230 MG/DL (80-115)
[2018-08-21] MEDS: HEPARIN 1,000 UNITS/ML 10ML VIAL (FOR RADIOLOGY& DIALYSIS ONLY) IV (10:30)
[2018-08-21] MEDS: LIDOCAINE 1% SDV 5 ML VIAL SQ (10:30)
[2018-08-21] MEDS: cloNIDine 0.1 MG TAB PO ×2 (17:03→21:08)
[2018-08-21 19:38] LABS: BEDSIDE GLUCOSE 115 MG/DL (80-115)
[2018-08-21 19:38] LABS: BEDSIDE GLUCOSE 246 MG/DL (80-115)
[2018-08-21 19:54] LABS: BEDSIDE GLUCOSE 66 MG/DL (80-115)
[2018-08-21] MEDS: SENNA 8.6 MG TAB (SENOKOT) PO (21:08)
[2018-08-21] MEDS: GABAPENTIN 100 MG CAP PO (21:08)
[2018-08-21] MEDS: ATORVASTATIN 20 MG TAB PO (21:08)
[2018-08-21] MEDS: CALDESENE TOP (21:09)
[2018-08-22 05:16] LABS: BEDSIDE GLUCOSE 109 MG/DL (80-115)
[2018-08-22] MEDS: IPRATROPIUM 0.5MG/ALBUTEROL 2.5MG INH SOL UD 3ML (DUONEB)(J7620) NEB ×2 (07:12→20:00)
[2018-08-22] MEDS: HumaLOG INSULIN (NovoLOG) PER UNIT SC ×7 (07:30→21:00)
[2018-08-22] MEDS: DOCUSATE SODIUM 100 MG CAP PO ×2 (07:53→21:18)
[2018-08-22] MEDS: PANTOPRAZOLE 40MG TAB (PROTONIX) PO (07:53)
[2018-08-22] MEDS: ASPIRIN 81 MG ENTERIC TAB PO (07:53)
[2018-08-22] MEDS: CitaloPRAM (CeleXA) 20 MG TAB PO (07:53)
[2018-08-22] MEDS: cloNIDine 0.1 MG TAB PO ×3 (07:54→21:18)
[2018-08-22] MEDS: CLOPIDOGREL 75 MG TAB PO (07:54)
[2018-08-22] MEDS: FOLIC ACID 1 MG TAB PO (07:54)
[2018-08-22] MEDS: CHLORTHALIDONE 25 MG TAB PO (07:54)
[2018-08-22] MEDS: SPIRONOLACTONE 50 MG TAB PO ×2 (07:55→16:22)
[2018-08-22] MEDS: THIAMINE HCL 200 MG/2 ML VIAL (J3411) IM (07:55)
[2018-08-22] MEDS: amLODIPine 10 MG TAB PO (07:55)
[2018-08-22] MEDS: EUCERIN 120GM CREAM EXT ×2 (07:57→21:20)
[2018-08-22] MEDS: LEVEMIR (INSULIN DETEMIR) 1 UNITS/0.01ML SC ×2 (10:00→21:20)
[2018-08-22 10:47] LABS: BEDSIDE GLUCOSE 247 MG/DL (80-115)
[2018-08-22 11:41] LABS: BEDSIDE GLUCOSE 252 MG/DL (80-115)
[2018-08-22 11:49] LABS: BASO # 0.1 10^3/uL (0.0-0.2); BASO % 1.2 % (0.0-1.0); EOS # 0.1 10^3/uL (0.0-0.50); EOS % 2.9 % (0.0-3.0); HEMATOCRIT 38.3 % (42.0-52.0); HEMOGLOBIN 12.4 g/dl (13.5-17.5); IMMATURE GRANULOCYTE % 0.5 % (0-3.0); LYMPH # 0.9 10^3/uL (1.5-4.5); LYMPH % 21.8 % (24.0-44.0); MEAN CORPUSCULAR HEMOGLOBIN 32.4 pg (27.0-33.0); MEAN CORPUSCULAR HGB CONC 32.4 g/dl (32.0-36.5); MONO # 0.4 10^3/uL (0.0-0.8); NEUTROPHILS # 2.7 10^3/uL (1.8-7.7); NEUTROPHILS % 64.6 % (36.0-66.0); PLATELET COUNT, AUTOMATED 240 10^3/uL (150-450); RED BLOOD COUNT 3.83 10^6/uL (4.30-6.10); RED CELL DISTRIBUTION WIDTH 16.7 % (11.5-14.5); WHITE BLOOD COUNT 4.1 10^3/uL (4.0-10.0)
[2018-08-22 12:17] LABS: ANION GAP 9 MEQ/L (8-16); BLOOD UREA NITROGEN 26 MG/DL (7-18); CALCIUM LEVEL 8.4 MG/DL (8.8-10.2); CARBON DIOXIDE LEVEL 28 MEQ/L (21-32); CHLORIDE LEVEL 97 MEQ/L (98-107); CREATININE FOR GFR 4.02 MG/DL (0.70-1.30); GLOMERULAR FILTRATION RATE 15.9 (>49); GLUCOSE, FASTING 258 MG/DL (70-100); POTASSIUM SERUM 4.5 MEQ/L (3.5-5.1); SODIUM LEVEL 134 MEQ/L (136-145)
[2018-08-22] MEDS: SANTYL OINT 30GM TOP ×2 (14:30→21:21)
[2018-08-22 16:53] LABS: BEDSIDE GLUCOSE 175 MG/DL (80-115)
[2018-08-22 20:45] LABS: BEDSIDE GLUCOSE 70 MG/DL (80-115)
[2018-08-22] MEDS: SENNA 8.6 MG TAB (SENOKOT) PO (21:18)
[2018-08-22] MEDS: GABAPENTIN 100 MG CAP PO (21:18)
[2018-08-22] MEDS: ATORVASTATIN 20 MG TAB PO (21:19)
[2018-08-23 03:13] LABS: BEDSIDE GLUCOSE 51 MG/DL (80-115)
[2018-08-23 03:45] LABS: BEDSIDE GLUCOSE 105 MG/DL (80-115)
[2018-08-23 06:26] LABS: BEDSIDE GLUCOSE 215 MG/DL (80-115)
[2018-08-23] MEDS: IPRATROPIUM 0.5MG/ALBUTEROL 2.5MG INH SOL UD 3ML (DUONEB)(J7620) NEB ×2 (07:25→20:00)
[2018-08-23] MEDS: HumaLOG INSULIN (NovoLOG) PER UNIT SC ×7 (07:30→21:00)
[2018-08-23 08:19] LABS: BEDSIDE GLUCOSE 152 MG/DL (80-115)
[2018-08-23] MEDS: cloNIDine 0.1 MG TAB PO ×3 (08:51→21:00)
[2018-08-23] MEDS: THIAMINE 100 MG TAB PO (08:51)
[2018-08-23] MEDS: CALCITRIOL 0.25 MCG CAP (S0169) PO (08:51)
[2018-08-23] MEDS: CitaloPRAM (CeleXA) 20 MG TAB PO (08:51)
[2018-08-23] MEDS: ASPIRIN 81 MG ENTERIC TAB PO (08:52)
[2018-08-23] MEDS: DOCUSATE SODIUM 100 MG CAP PO ×2 (08:52→21:00)
[2018-08-23] MEDS: FOLIC ACID 1 MG TAB PO (08:52)
[2018-08-23] MEDS: amLODIPine 10 MG TAB PO (08:52)
[2018-08-23] MEDS: PANTOPRAZOLE 40MG TAB (PROTONIX) PO (08:52)
[2018-08-23] MEDS: LEVEMIR (INSULIN DETEMIR) 1 UNITS/0.01ML SC ×2 (08:52→21:00)
[2018-08-23] MEDS: CHLORTHALIDONE 25 MG TAB PO (08:52)
[2018-08-23] MEDS: SPIRONOLACTONE 50 MG TAB PO ×2 (08:52→16:57)
[2018-08-23] MEDS: CLOPIDOGREL 75 MG TAB PO (08:52)
[2018-08-23] MEDS: SANTYL OINT 30GM TOP ×2 (08:53→21:00)
[2018-08-23] MEDS: EUCERIN 120GM CREAM EXT ×2 (08:53→21:01)
[2018-08-23 11:27] LABS: BEDSIDE GLUCOSE 217 MG/DL (80-115)
[2018-08-23] MEDS: LIDOCAINE 1% SDV 5 ML VIAL SQ (13:00)
[2018-08-23] MEDS: HEPARIN 1,000 UNITS/ML 10ML VIAL (FOR RADIOLOGY& DIALYSIS ONLY) IV (13:00)
[2018-08-23 16:54] LABS: BEDSIDE GLUCOSE 116 MG/DL (80-115)
[2018-08-23 20:01] LABS: BEDSIDE GLUCOSE 136 MG/DL (80-115)
[2018-08-23] MEDS: GABAPENTIN 100 MG CAP PO (21:00)
[2018-08-23] MEDS: ATORVASTATIN 20 MG TAB PO (21:01)
[2018-08-23] MEDS: SENNA 8.6 MG TAB (SENOKOT) PO (21:01)
[2018-08-24 05:57] LABS: BEDSIDE GLUCOSE 381 MG/DL (80-115)
[2018-08-24] MEDS: HumaLOG INSULIN (NovoLOG) PER UNIT SC ×10 (07:30→20:54)
[2018-08-24] MEDS: CLOPIDOGREL 75 MG TAB PO (08:00)
[2018-08-24] MEDS: PANTOPRAZOLE 40MG TAB (PROTONIX) PO (08:00)
[2018-08-24] MEDS: IPRATROPIUM 0.5MG/ALBUTEROL 2.5MG INH SOL UD 3ML (DUONEB)(J7620) NEB ×2 (08:00→20:00)
[2018-08-24] MEDS: ASPIRIN 81 MG ENTERIC TAB PO (08:00)
[2018-08-24] MEDS: DOCUSATE SODIUM 100 MG CAP PO ×2 (08:00→20:53)
[2018-08-24] MEDS: THIAMINE 100 MG TAB PO (08:00)
[2018-08-24] MEDS: CHLORTHALIDONE 25 MG TAB PO (08:00)
[2018-08-24] MEDS: SPIRONOLACTONE 50 MG TAB PO ×2 (08:01→17:27)
[2018-08-24] MEDS: amLODIPine 10 MG TAB PO (08:01)
[2018-08-24] MEDS: CitaloPRAM (CeleXA) 20 MG TAB PO (08:01)
[2018-08-24] MEDS: cloNIDine 0.1 MG TAB PO ×3 (08:01→20:53)
[2018-08-24] MEDS: FOLIC ACID 1 MG TAB PO (08:01)
[2018-08-24] MEDS: EUCERIN 120GM CREAM EXT ×2 (08:02→20:55)
[2018-08-24] MEDS: SANTYL OINT 30GM TOP ×2 (08:03→20:55)
[2018-08-24 10:15] LABS: BEDSIDE GLUCOSE 534 MG/DL (80-115)
[2018-08-24 10:16] LABS: BEDSIDE GLUCOSE 502 MG/DL (80-115)
[2018-08-24] MEDS: LEVEMIR (INSULIN DETEMIR) 1 UNITS/0.01ML SC ×2 (10:39→21:00)
[2018-08-24 11:32] LABS: BEDSIDE GLUCOSE 506 MG/DL (80-115)
[2018-08-24 12:48] LABS: BEDSIDE GLUCOSE CONFIRMATION 521 MG/DL (LESS THAN 200)
[2018-08-24 14:30] LABS: BEDSIDE GLUCOSE 317 MG/DL (80-115)
[2018-08-24 18:54] LABS: BEDSIDE GLUCOSE 53 MG/DL (80-115)
[2018-08-24 19:47] LABS: BEDSIDE GLUCOSE 43 MG/DL (80-115)
[2018-08-24 20:18] LABS: BEDSIDE GLUCOSE 51 MG/DL (80-115)
[2018-08-24] MEDS: D5W/0.45% SODIUM CHLORIDE 1,000 ML IV (20:51)
[2018-08-24] MEDS: ATORVASTATIN 20 MG TAB PO (20:53)
[2018-08-24] MEDS: GABAPENTIN 100 MG CAP PO (20:53)
[2018-08-24] MEDS: SENNA 8.6 MG TAB (SENOKOT) PO (20:54)
[2018-08-24 21:23] LABS: BEDSIDE GLUCOSE 69 MG/DL (80-115)
[2018-08-24 23:18] LABS: BEDSIDE GLUCOSE 72 MG/DL (80-115)
[2018-08-25 01:16] LABS: BEDSIDE GLUCOSE 108 MG/DL (80-115)
[2018-08-25 04:03] LABS: BEDSIDE GLUCOSE 115 MG/DL (80-115)
[2018-08-25 06:24] LABS: BEDSIDE GLUCOSE 79 MG/DL (80-115)
[2018-08-25] MEDS: HumaLOG INSULIN (NovoLOG) PER UNIT SC ×8 (07:30→21:00)
[2018-08-25] MEDS: IPRATROPIUM 0.5MG/ALBUTEROL 2.5MG INH SOL UD 3ML (DUONEB)(J7620) NEB ×2 (08:00→20:00)
[2018-08-25] MEDS: EUCERIN 120GM CREAM EXT ×2 (09:00→21:00)
[2018-08-25] MEDS: SANTYL OINT 30GM TOP ×2 (09:00→21:00)
[2018-08-25] MEDS: CitaloPRAM (CeleXA) 20 MG TAB PO (09:03)
[2018-08-25] MEDS: cloNIDine 0.1 MG TAB PO ×3 (09:03→21:12)
[2018-08-25] MEDS: ASPIRIN 81 MG ENTERIC TAB PO (09:04)
[2018-08-25] MEDS: CLOPIDOGREL 75 MG TAB PO (09:04)
[2018-08-25] MEDS: CHLORTHALIDONE 25 MG TAB PO (09:04)
[2018-08-25] MEDS: amLODIPine 10 MG TAB PO (09:05)
[2018-08-25] MEDS: LEVEMIR (INSULIN DETEMIR) 1 UNITS/0.01ML SC ×2 (10:00→13:30)
[2018-08-25] MEDS: PANTOPRAZOLE 40MG TAB (PROTONIX) PO (10:03)
[2018-08-25] MEDS: THIAMINE 100 MG TAB PO (10:03)
[2018-08-25] MEDS: SPIRONOLACTONE 50 MG TAB PO ×2 (10:03→17:07)
[2018-08-25] MEDS: FOLIC ACID 1 MG TAB PO (10:03)
[2018-08-25] MEDS: DOCUSATE SODIUM 100 MG CAP PO ×2 (10:03→21:10)
[2018-08-25 11:58] LABS: BASO # 0.1 10^3/uL (0.0-0.2); BASO % 1.2 % (0.0-1.0); EOS # 0.1 10^3/uL (0.0-0.50); EOS % 3.4 % (0.0-3.0); HEMATOCRIT 36.5 % (42.0-52.0); HEMOGLOBIN 12.1 g/dl (13.5-17.5); IMMATURE GRANULOCYTE % 0.5 % (0-3.0); LYMPH # 0.8 10^3/uL (1.5-4.5); LYMPH % 19.4 % (24.0-44.0); MEAN CORPUSCULAR HEMOGLOBIN 31.7 pg (27.0-33.0); MEAN CORPUSCULAR HGB CONC 33.2 g/dl (32.0-36.5); MEAN CORPUSCULAR VOLUME 95.5 fl (80.0-96.0); MONO # 0.5 10^3/uL (0.0-0.8); MONO % 11.1 % (0.0-5.0); NEUTROPHILS # 2.7 10^3/uL (1.8-7.7); NEUTROPHILS % 64.4 % (36.0-66.0); PLATELET COUNT, AUTOMATED 199 10^3/uL (150-450); RED BLOOD COUNT 3.82 10^6/uL (4.30-6.10); RED CELL DISTRIBUTION WIDTH 15.4 % (11.5-14.5); WHITE BLOOD COUNT 4.1 10^3/uL (4.0-10.0)
[2018-08-25 12:54] LABS: ANION GAP 12 MEQ/L (8-16); BLOOD UREA NITROGEN 47 MG/DL (7-18); CALCIUM LEVEL 7.7 MG/DL (8.8-10.2); CARBON DIOXIDE LEVEL 24 MEQ/L (21-32); CHLORIDE LEVEL 95 MEQ/L (98-107); CREATININE FOR GFR 4.63 MG/DL (0.70-1.30); GLOMERULAR FILTRATION RATE 13.5 (>49); GLUCOSE, FASTING 363 MG/DL (70-100); POTASSIUM SERUM 4.3 MEQ/L (3.5-5.1); SODIUM LEVEL 131 MEQ/L (136-145)
[2018-08-25] MEDS: D5W/0.45% SODIUM CHLORIDE 1,000 ML IV (15:46)
[2018-08-25] MEDS: ATORVASTATIN 20 MG TAB PO (21:10)
[2018-08-25] MEDS: GABAPENTIN 100 MG CAP PO (21:11)
[2018-08-25] MEDS: SENNA 8.6 MG TAB (SENOKOT) PO (21:12)
[2018-08-26 04:14] LABS: BEDSIDE GLUCOSE 81 MG/DL (80-115)
[2018-08-26] MEDS: HumaLOG INSULIN (NovoLOG) PER UNIT SC ×6 (07:30→17:09)
[2018-08-26] MEDS: IPRATROPIUM 0.5MG/ALBUTEROL 2.5MG INH SOL UD 3ML (DUONEB)(J7620) NEB ×2 (08:00→20:00)
[2018-08-26] MEDS: THIAMINE 100 MG TAB PO (09:36)
[2018-08-26] MEDS: amLODIPine 10 MG TAB PO (09:37)
[2018-08-26] MEDS: CALCITRIOL 0.25 MCG CAP (S0169) PO (09:37)
[2018-08-26] MEDS: SPIRONOLACTONE 50 MG TAB PO ×2 (09:37→17:09)
[2018-08-26] MEDS: CHLORTHALIDONE 25 MG TAB PO (09:37)
[2018-08-26] MEDS: CLOPIDOGREL 75 MG TAB PO (09:37)
[2018-08-26] MEDS: DOCUSATE SODIUM 100 MG CAP PO ×2 (09:37→20:07)
[2018-08-26] MEDS: FOLIC ACID 1 MG TAB PO (09:37)
[2018-08-26] MEDS: EUCERIN 120GM CREAM EXT ×2 (09:38→20:08)
[2018-08-26] MEDS: cloNIDine 0.1 MG TAB PO ×3 (09:38→20:08)
[2018-08-26] MEDS: ASPIRIN 81 MG ENTERIC TAB PO (09:38)
[2018-08-26] MEDS: CitaloPRAM (CeleXA) 20 MG TAB PO (09:38)
[2018-08-26] MEDS: PANTOPRAZOLE 40MG TAB (PROTONIX) PO (09:38)
[2018-08-26] MEDS: SANTYL OINT 30GM TOP ×2 (09:39→20:09)
[2018-08-26] MEDS: LEVEMIR (INSULIN DETEMIR) 1 UNITS/0.01ML SC (10:00)
[2018-08-26] MEDS: HEPARIN 1,000 UNITS/ML 10ML VIAL (FOR RADIOLOGY& DIALYSIS ONLY) IV (14:30)
[2018-08-26] MEDS: LIDOCAINE 1% SDV 5 ML VIAL SQ (14:30)
[2018-08-26 16:48] LABS: BEDSIDE GLUCOSE 58 MG/DL (80-115)
[2018-08-26] MEDS: SENNA 8.6 MG TAB (SENOKOT) PO (20:07)
[2018-08-26] MEDS: GABAPENTIN 100 MG CAP PO (20:07)
[2018-08-26] MEDS: ATORVASTATIN 20 MG TAB PO (20:07)
[2018-08-26 21:47] LABS: BEDSIDE GLUCOSE 98 MG/DL (80-115)
[2018-08-27] MEDS: HumaLOG INSULIN (NovoLOG) PER UNIT SC ×4 (07:30→12:34)
[2018-08-27] MEDS: IPRATROPIUM 0.5MG/ALBUTEROL 2.5MG INH SOL UD 3ML (DUONEB)(J7620) NEB (08:00)
[2018-08-27] MEDS: FOLIC ACID 1 MG TAB PO (08:45)
[2018-08-27] MEDS: THIAMINE 100 MG TAB PO (08:45)
[2018-08-27] MEDS: CHLORTHALIDONE 25 MG TAB PO (08:45)
[2018-08-27] MEDS: CLOPIDOGREL 75 MG TAB PO (08:45)
[2018-08-27] MEDS: CitaloPRAM (CeleXA) 20 MG TAB PO (08:45)
[2018-08-27] MEDS: DOCUSATE SODIUM 100 MG CAP PO (08:46)
[2018-08-27] MEDS: PANTOPRAZOLE 40MG TAB (PROTONIX) PO (08:46)
[2018-08-27] MEDS: cloNIDine 0.1 MG TAB PO (08:46)
[2018-08-27] MEDS: SPIRONOLACTONE 50 MG TAB PO (08:46)
[2018-08-27] MEDS: amLODIPine 10 MG TAB PO (08:46)
[2018-08-27] MEDS: ASPIRIN 81 MG ENTERIC TAB PO (08:46)
[2018-08-27] MEDS: SANTYL OINT 30GM TOP (08:47)
[2018-08-27] MEDS: EUCERIN 120GM CREAM EXT (08:48)
[2018-08-27] MEDS: LEVEMIR (INSULIN DETEMIR) 1 UNITS/0.01ML SC ×2 (10:00→11:36)
[2018-08-27] MEDS ORDERED: GLUCAGON FOR INJ 1 MG VIAL (J1610) SC (11:15)
[2018-08-27] MEDS ORDERED: DEXTROSE 50% 50 ML SYRINGE IV (11:15)
[2018-08-27] MEDS ORDERED: GLUCOSE 4 GM CHEW TABLET PO (11:15)
[2018-08-27] MEDS ORDERED: HumaLOG INSULIN (NovoLOG) PER UNIT SC ×2 (17:30→21:00)
== END 2018-08-27 14:30 | disposition home health service (06) | DRG 949 ==
LOC: M PM&R 17:20
PROVIDERS: Physical Medicine & Rehabilitation
PROC: 5A1D70Z Performance of Urinary Filtration, Intermittent, Less than 6 Hours Per Day (ICD-10-PCS; principal; 2018-08-14)
DX: T81.49XD Infection following a procedure, other surgical site, subsequent encounter (principal); N18.6 End stage renal disease; G93.1 Anoxic brain damage, not elsewhere classified; R47.01 Aphasia; S22.42XD Multiple fractures of ribs, left side, subsequent encounter for fracture with routine healing; Y83.8 Other surgical procedures as the cause of abnormal reaction of the patient, or of later complication, without mention of misadventure at the time of the procedure; I15.0 Renovascular hypertension; E11.649 Type 2 diabetes mellitus with hypoglycemia without coma; E10.51 Type 1 diabetes mellitus with diabetic peripheral angiopathy without gangrene; Z66 Do not resuscitate; K21.9 Gastro-esophageal reflux disease without esophagitis; D63.1 Anemia in chronic kidney disease; E10.42 Type 1 diabetes mellitus with diabetic polyneuropathy; I50.9 Heart failure, unspecified; E10.65 Type 1 diabetes mellitus with hyperglycemia; E87.5 Hyperkalemia; G25.0 Essential tremor; E10.22 Type 1 diabetes mellitus with diabetic chronic kidney disease; M17.11 Unilateral primary osteoarthritis, right knee; Z89.421 Acquired absence of other right toe(s); Z87.891 Personal history of nicotine dependence; Z99.2 Dependence on renal dialysis; Z79.82 Long term (current) use of aspirin; Z79.4 Long term (current) use of insulin; Z79.899 Other long term (current) drug therapy; Z88.1 Allergy status to other antibiotic agents; Z88.2 Allergy status to sulfonamides; Z88.6 Allergy status to analgesic agent; Z88.8 Allergy status to other drugs, medicaments and biological substances; Z95.5 Presence of coronary angioplasty implant and graft; Z86.74 Personal history of sudden cardiac arrest

== ENCOUNTER → 2018-10-06 | Outpatient (CLI) | payer MEDICARE ==
[~2018-10-06] MED LIST changes: +/ESCI20TA OR; +/PANT40TA PO; +ALBU83IN NEB; +ALDA50TA2 PO; +AMLO10TA5 PO; +AMLO5TAB6 PO; +ARAN200I2 IV; +ASPI1TAB PO; +ASPI81TA45 OR; +ASPI81TAEC PO; +ATOR1TAB21 PO; +ATOR80TA59 PO; +AUGM875T28 PO; +Acetaminophen Tab PO; +BISA10SU PR; +BUME1TAB OR; +CALC0.5C PO; +CALC0.5C6 PO; +CALC1CAP31 PO; +CALC600T10 OR; +CALC600T31 PO; +CALC600T60 PO; +CALCTAB68 PO; +CEFD1CAP8 PO; +CELE20TA PO; +CHLO25TA PO; +CITA-231 PO; +CITA40TA4 PO; +CLON-412 PO; +CLONI1TA PO; +CLOP75TA2 PO; +COLA100C5 PO; +Calcium; +DARB100SYR IV; +DEXT50IN6 IV; -DEXTROSE 50% 50 ML SYRINGE IV; +DIPHCR TOP; +DRIS50003 PO; +DULO20CA OR; +Docusate Sod/Senna PO; +EUCE12CR TOP; +FEBU40TA PO; +FERR1TAB8 PO; +FERR324T2 PO; +FERR325T3 PO; +FOLI1TAB11 PO; +GABA-1171 PO; +GLUC1INJ21 SC; +GLUC1KIT IM; +GLUC4CHW19 PO; -GLUCAGON FOR INJ 1 MG VIAL (J1610) SC; -GLUCOSE 4 GM CHEW TABLET PO; +HYDR-3363 PO; +HYDR-3713 PO; +HYDR-3910 PO; +HYDR25TA PO; +INSUDET SC; +INSUHUMDS SC; +INSULANT SC; +INSUR SC; +IPRA0.00 NEB; -IPRATROPIUM 0.5MG/ALBUTEROL 2.5MG INH SOL UD 3ML (DUONEB)(J7620) NEB; +IRON1TAB PO; +Insulin Pump SQ; +KLOR10TA76 PO; +LIDO5DIS41 TD; +LISI10TA4 OR; +MILK120011 PO; +MIRT45TA OR; +MIRT45TA4 PO; +NORC1TAB4 PO; +NUCY100T11 PO; -ONDANSETRON 4 MG TAB (S0181) PO; +PANT40TA3 PO; +PERCOCET PO; +PLAV1TAB2 PO; +PLAV75TA2 OR; +ROCA0.5C PO; +SLF3ML IV; +SPIR-10 PO; +THIA100TA PO; +TIZA-208 PO; +TORS20TA2 PO; +VICO5TAB PO; +VITA50005 PO; +VITAMIN D50000 UNT OR; +[UNRECOGNIZED DRUG - OTHER] PO; -hydrOXYzine 25 MG TAB PO; +iron PO; +lantus SQ
--- NOTE | 2018-10-06 12:29 | REP ---
Bilateral lower extremity arterial Doppler ultrasound: History: Peripheral vascular disease. History of bilateral bypass graft. Comparison CT angiography July 25, 2018. Findings: Ankle brachial indices could not be done due to calcified vessels. Bilaterally patent fem-pop grafts are seen. The right common iliac artery flow velocity is 186 cm/sec. Left common iliac artery flow velocity could not be achieved. The left external iliac artery flow velocity is 207 cm/sec. There is evidence of mild, 40 - 50% stenosis of the distal anastomosis for the bypass graft on the left. Biphasic waveforms are noted bilaterally. Velocity chart right lower extremity arteries: Proximal fem-pop graft anastomosis 93 cm/S Proximal graft 103 Mid graft 69 Distal graft 85 Distal anastomoses 114 Popliteal artery 145 Proximal AT A 44 Tibioperoneal trunk 102 Proximal PLUMBER SUPERVISOR 104 Distal PLUMBER SUPERVISOR 62 Distal AT A 89 Velocity chart left lower extremity arteries: Proximal fem-pop graft anastomoses 91 cm/S Proximal graft 78 Mid graft 63 Distal graft to 68 Distal fem-pop an anastomosis 183 Popliteal artery 119 Proximal AT A 56 Tibioperoneal trunk 82 Proximal PLUMBER SUPERVISOR 46 Distal PLUMBER SUPERVISOR 69 Distal AT A 81. Electronically Signed by Garry Willingham MD 10/06/2018 12:21 P
== END ==
LOC: M RAD 09:25
PROVIDERS: ATTEND Surgery Vascular Surgery
DX: I70.302 Unspecified atherosclerosis of unspecified type of bypass graft(s) of the extremities, left leg (principal)

== ENCOUNTER 2018-11-17 09:00 | Outpatient (CLI) | payer MEDICARE ==
[~2018-11-17] VITALS: Ht 165.1 cm; Wt 70.9 kg
[2018-11-17] MEDS ORDERED: ACETAMINOPHEN 325 MG TAB PO ONE (09:30)
[2018-11-17 09:33] VITALS: BP 147/68
[2018-11-17 15:30] VITALS: BP 164/74
== END 2018-11-17 15:30 | disposition home or self-care (01) ==
LOC: M INFU 09:00
PROVIDERS: ATTEND Internal Medicine Nephrology
DX: N18.9 Chronic kidney disease, unspecified (principal); D63.1 Anemia in chronic kidney disease; Z88.8 Allergy status to other drugs, medicaments and biological substances; Z88.1 Allergy status to other antibiotic agents
CPT/HCPCS: 36430; 86850; 86900; 86901; 86920; P9016

== ENCOUNTER → 2018-11-21 | Outpatient (REF) | payer MEDICARE | LOC: M LAB REF 17:20 | PROVIDERS: ATTEND Internal Medicine Nephrology | DX: D64.9 Anemia, unspecified (principal) ==

== ENCOUNTER → 2018-11-30 | Outpatient (REF) | payer MEDICARE | LOC: M LAB REF 12:57 | PROVIDERS: ATTEND Internal Medicine Nephrology | DX: D64.9 Anemia, unspecified (principal) ==

== ENCOUNTER → 2019-02-15 | Outpatient (CLI) | payer MEDICARE ==
[~2019-02-15] MED LIST changes: -/ESCI20TA OR; -/PANT40TA PO; -ASPI1TAB PO; +ASPI81TA26 PO; -CALC0.5C PO; +CALC0.5C14 PO; -CITA-231 PO; +CITA40TA6 PO; +CYMB1CAP4 OR; -DULO20CA OR; -EUCE12CR TOP; +HUMA100I3 SC; +HYDR1CRE95 TOP; +LEXA1TAB2 OR; +MIRT1TAB17 PO; -NORC1TAB4 PO; +NORC1TAB7 PO; -NUCY100T11 PO; +PROT1TAB2 PO; +TAPE100T2 PO; -TIZA-208 PO; +TIZA4TAB4 PO
== END ==
LOC: M LAB 11:49
PROVIDERS: ATTEND Internal Medicine Nephrology
DX: D64.9 Anemia, unspecified (principal)

== ENCOUNTER 2019-02-16 10:52 | Outpatient (CLI) | payer MEDICARE ==
[2019-02-16] VITALS (7 sets, daily range): BP systolic 151–190; BP diastolic 66–85
[~2019-02-16] VITALS: Ht 165.1 cm; Wt 61.1 kg
[~2019-02-16 10:52] MED LIST changes: -HUMA100I3 SC; -MIRT1TAB17 PO
[2019-02-16] MEDS ORDERED: ACETAMINOPHEN 325 MG TAB PO ONE (11:30)
[2019-02-17] MEDS ORDERED: HUMA100I3 SC (22:11)
[2019-02-17] MEDS ORDERED: HYDR-3713 PO (22:11)
[2019-02-17] MEDS ORDERED: MIRT1TAB17 PO (22:11)
[2019-02-17] MEDS ORDERED: CLONI1TA PO (22:11)
[2019-02-17] MEDS ORDERED: HYDR25TA PO (22:11)
== END 2019-02-16 17:00 | disposition home or self-care (01) ==
LOC: M INFU 10:52
PROVIDERS: ATTEND Internal Medicine Nephrology
DX: N18.9 Chronic kidney disease, unspecified (principal); D63.1 Anemia in chronic kidney disease
CPT/HCPCS: 36430; P9016

== ENCOUNTER 2019-02-17 21:03 | Emergency (ER) | payer MEDICARE ==
[~2019-02-17] VITALS: Ht 165.1 cm; Wt 70.5 kg
[2019-02-17 21:59] LABS: HEMATOCRIT 37.3 % (42.0-52.0); HEMOGLOBIN 12.7 g/dl (13.5-17.5); MEAN CORPUSCULAR HEMOGLOBIN 33.6 pg (27.0-33.0); MEAN CORPUSCULAR VOLUME 98.7 fl (80.0-96.0); PLATELET COUNT, AUTOMATED 231 10^3/uL (150-450); RED BLOOD COUNT 3.78 10^6/uL (4.30-6.10)
[2019-02-17] MEDS ORDERED: cloNIDine 0.1 MG TAB PO ONE (22:00)
[2019-02-17] MEDS ORDERED: HUMA100I3 SC (22:11)
[2019-02-17] MEDS ORDERED: MIRT1TAB17 PO (22:11)
[2019-02-17] MEDS ORDERED: HYDR-3713 PO (22:11)
[2019-02-17] MEDS ORDERED: CLONI1TA PO (22:11)
[2019-02-17] MEDS ORDERED: HYDR25TA PO (22:11)
[2019-02-17 22:29] LABS: ALBUMIN 2.9 GM/DL (3.2-5.2); ALT/SGPT 22 U/L (12-78); BILIRUBIN,TOTAL 0.2 MG/DL (0.2-1.0); BLOOD UREA NITROGEN 34 MG/DL (7-18); CALCIUM LEVEL 7.9 MG/DL (8.8-10.2); CARBON DIOXIDE LEVEL 29 MEQ/L (21-32); CHLORIDE LEVEL 98 MEQ/L (98-107); CK-MB VALUE MASS 1.9 NG/ML (<3.6); CPK CREATINE PHOSPHOKINASE 76 U/L (39-308); CREATININE FOR GFR 4.52 MG/DL (0.70-1.30); GLOMERULAR FILTRATION RATE 13.9 (>49); GLUCOSE, FASTING 281 MG/DL (70-100); NT-PRO BNP 12432 PG/ML (<125); POTASSIUM SERUM 3.4 MEQ/L (3.5-5.1); SODIUM LEVEL 137 MEQ/L (136-145); TOTAL PROTEIN 6.8 GM/DL (6.4-8.2); TROPONIN I < 0.02 NG/ML (< 0.10)
[2019-02-17] MEDS ORDERED: PERCOCET 5MG/325MG TAB PO ONE (22:30)
[2019-02-17] MEDS ORDERED: SPIRONOLACTONE 25 MG TAB PO ONE (22:30)
[2019-02-17] MEDS ORDERED: **hydrALAZINE HCL** 25 MG TAB PO ONE (22:30)
[2019-02-17] MEDS ORDERED: hydrALAZINE INJ 20 MG/ML VIAL IV STA (23:43)
--- NOTE | 2019-02-18 00:05 | REPVR ---
EXAM: CT Head Without Contrast EXAM DATE/TIME: 02/17/2019 11:47 PM CLINICAL HISTORY: 68 years old, male; Pain; Headache not specified TECHNIQUE: Imaging protocol: Axial computed tomography images of the head without contrast. Radiation optimization: All CT scans at this facility use at least one of these dose optimization techniques: automated exposure control; mA and/or kV adjustment per patient size (includes targeted exams where dose is matched to clinical indication); or iterative reconstruction. COMPARISON: CT Head without contrast 07/25/2018 10:06 AM FINDINGS: There are no intra-or extra-axial hemorrhages or fluid collections. There is no mass effect or midline shift. Ventricles are symmetrical and mildly dilated with associated cortical volume loss consistent with generalized atrophy. Mild chronic ischemic changes in the periventricular deep white matter. Atherosclerotic changes within intracranial arteries. There are no focal parenchymal abnormalities. No calvarial fractures. Visualized paranasal sinuses and mastoid air cells are clear. IMPRESSION: Generalized atrophy and chronic ischemic changes, similar to previous examination. No acute intracranial process. No intracranial hemorrhage. Electronically signed by: Lamonte Enamorado On 02/18/2019 00:04:59 AM
[2019-02-18 01:00] VITALS: BP 174/76
--- NOTE | 2019-02-18 09:09 | REP ---
CHEST, PORTABLE: AP portable view of the chest is performed and compared to prior study of 08/02/2018. Mild bibasilar fibro atelectatic change is seen without evidence of acute infiltrate. There does not appear to be significant cardiomegaly. There is mild calcification and tortuosity of the thoracic aorta. The mediastinal silhouette is unchanged. IMPRESSION: Mild chronic changes without evidence of acute pulmonary disease. Electronically Signed by Juan Antonio Young MD 02/18/2019 04:35 P
--- NOTE | 2019-02-18 16:15 | ECGEPIP ---
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
== END 2019-02-18 01:35 | disposition home or self-care (01) ==
LOC: M ED 21:03
DX: I12.0 Hypertensive chronic kidney disease with stage 5 chronic kidney disease or end stage renal disease (principal); R51 Headache; R06.02 Shortness of breath; I25.10 Atherosclerotic heart disease of native coronary artery without angina pectoris; E11.9 Type 2 diabetes mellitus without complications; K27.9 Peptic ulcer, site unspecified, unspecified as acute or chronic, without hemorrhage or perforation; N18.6 End stage renal disease; Z87.19 Personal history of other diseases of the digestive system; Z99.2 Dependence on renal dialysis; Z95.5 Presence of coronary angioplasty implant and graft; Z87.891 Personal history of nicotine dependence; Z88.8 Allergy status to other drugs, medicaments and biological substances; Z88.6 Allergy status to analgesic agent; Z88.2 Allergy status to sulfonamides; Z88.1 Allergy status to other antibiotic agents; Z79.899 Other long term (current) drug therapy; Z79.82 Long term (current) use of aspirin; Z79.02 Long term (current) use of antithrombotics/antiplatelets; Z79.4 Long term (current) use of insulin

== ENCOUNTER 2019-05-26 19:28 | Emergency (ER) | payer MEDICARE ==
[~2019-05-26] VITALS: Ht 165.1 cm; Wt 72.1 kg
[~2019-05-26 19:28] MED LIST changes: -FEBU40TA PO; +FEBU40TA4 PO; +HUMA100I3 SC; +MIRT1TAB17 PO
[2019-05-26 19:30] VITALS: BP 112/53
== END 2019-05-26 21:16 | disposition left against medical advice (07) ==
LOC: M ED 19:28
DX: Z53.21 Procedure and treatment not carried out due to patient leaving prior to being seen by health care provider (principal)

== ENCOUNTER 2019-05-28 17:01 | Observation (INO) | payer MEDICARE ==
[~2019-05-28] VITALS: Ht 165.1 cm; Wt 73.5 kg
[2019-05-28] MEDS ORDERED: ALLO100T PO (17:28)
[2019-05-28 17:42] LABS: HEMATOCRIT 22.3 % (42.0-52.0); HEMOGLOBIN 7.9 g/dl (13.5-17.5); MEAN CORPUSCULAR HEMOGLOBIN 36.6 pg (27.0-33.0); MEAN CORPUSCULAR HGB CONC 35.4 g/dl (32.0-36.5); MEAN CORPUSCULAR VOLUME 103.2 fl (80.0-96.0); PLATELET COUNT, AUTOMATED 209 10^3/uL (150-450); RED BLOOD COUNT 2.16 10^6/uL (4.30-6.10); WHITE BLOOD COUNT 5.4 10^3/uL (4.0-10.0)
[2019-05-28 18:04] LABS: ALBUMIN 3.1 GM/DL (3.2-5.2); BILIRUBIN,TOTAL 0.2 MG/DL (0.2-1.0); CALCIUM LEVEL 8.1 MG/DL (8.8-10.2); CREATININE FOR GFR 4.19 MG/DL (0.70-1.30); GLOMERULAR FILTRATION RATE 15.2 (>49); POTASSIUM SERUM 3.4 MEQ/L (3.5-5.1); TOTAL PROTEIN 6.5 GM/DL (6.4-8.2)
[2019-05-28] MEDS ORDERED: GLUC4GMTAB PO (19:03)
[2019-05-28] MEDS ORDERED: THIA100T7 PO (19:03)
[2019-05-28] MEDS ORDERED: cloNIDine 0.1 MG TAB PO ONE (19:30)
[2019-05-28] MEDS ORDERED: ACETAMINOPHEN TAB 650MG DOSE (2X325MG) PO PRN (19:45)
[2019-05-28] MEDS ORDERED: GLUCAGON FOR INJ 1 MG VIAL (J1610) SC PRN (19:45)
[2019-05-28] MEDS ORDERED: DEXTROSE 50% 50 ML SYRINGE IV PRN (19:45)
[2019-05-28] MEDS ORDERED: MAALOX 30 ML SUSP *UDC PO PRN (19:45)
[2019-05-28] MEDS ORDERED: GLUCOSE 4 GM CHEW TABLET PO PRN (19:45)
[2019-05-28] MEDS ORDERED: MOM 30ML SUSPENSION UDC PO PRN (19:45)
[2019-05-28] MEDS ORDERED: NORCO, ANEXSIA 5/325MG TABLET (HYDROcodone/ACETAMINOPHEN) PO PRN (20:00)
[2019-05-28] MEDS ORDERED: DARBEPOETIN 100 MCG/0.5 ML *NON-DIALYSIS* SYRINGE (J0881) IV SCH (20:00)
[2019-05-28] MEDS ORDERED: MIRTAZAPINE 15 MG TAB PO SCH (21:00)
[2019-05-28] MEDS: SPIRONOLACTONE 25 MG TAB PO SCH (21:00)
[2019-05-28] MEDS ORDERED: HumaLOG INSULIN (NovoLOG) PER UNIT SC SCH (21:00)
[2019-05-28 21:04] VITALS: BP 188/68
[2019-05-28 21:30] LABS: PERCENT SATURATION 66.9 % (19.7-50.0)
--- NOTE | 2019-05-28 21:46 | ECGEPIP ---
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
--- NOTE | 2019-05-28 21:55 | HPEPDOC ---
General Date of Admission May 28, 2019 at 17:02 Date of Service: May 28, 2019 Chief Complaint The patient is a 68-year-old male admitted with a reason for visit of Systomatic Anemia. Source: Patient, RN/MD Exam Limitations: No limitations Severity: Mild History of Present Illness Mr. Norwood is a 68 years old man with ESRD on HD, last HD today. He was sent by Dr. Cottrell for anemia w/u and blood transfusion. Pt reports exertional dyspnea, fatigue, generalized weakness and lightheaded on standing for about a week. He denies any visible bleeding or melena. He had blood transfusion once several months ago. Pt has known hx/o anemia due to renal disease. his last Hb 3 months ago was 12.7; today 7.9. Pt takes aspirin at home. He denies any hx/o colonoscopy. Vitals and mental status are good. PAST MEDICAL HISTORY: ESRD on dialysis, CAD s/p stents, HTN, PVD, GI bleed, DM2 PAST SURGICAL HISTORY: Cardiac catheterization and stenting and right iliofemoral bypass and left femoral popliteal bypass graft. Right D2 toe amputation. Right arteriovenous (AV) fistula creation ALLERGIES: Please see below. MEDICATIONS: Please see below. 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, quit smoking >10 years ago, denies ETOH or illicit drug use Home Medications Scheduled Allopurinol (Allopurinol) 100 Mg Tablet, 100 MG PO DAILY, (Reported) Aspirin (Aspirin EC) 81 Mg Tab, 81 MG PO DAILY, (Reported) Atorvastatin Calcium (Atorvastatin Calcium) 80 Mg Tab, 80 MG PO QPM, (Reported) Calcitriol (Calcitriol) 0.25 Mcg Cap, 0.25 MCG PO HD, (Reported) E//SAT Calcium Carbonate (Calcium) 600 Mg Tab, 600 MG PO QPM, (Reported) Citalopram Hydrobromide (Citalopram HBr) 40 Mg Tab, 40 MG PO DAILY, (Reported) Clonidine Hcl (Clonidine HCl) 0.1 Mg Tablet, 0.1 MG PO TID, (Reported) DOES NOT TAKE ON HD DAYS (SAT//SAT) Clopidogrel Bisulfate (Clopidogrel) 75 Mg Tab, 75 MG PO DAILY, (Reported) Darbepoetin Cipriano in Polysorbat (Aranesp) 200 Mcg/Ml Inj, 200 MCG IV HD, (Reported) Ergocalciferol (Vitamin D2) (Drisdol) 50,000 Unit Cap, 50,000 UNIT PO QWEEK, (Reported) WED[place] Ferrous Sulfate (Ferrous Sulfate) 324 Mg Tab, 324 MG PO DAILY, (Reported) Hydralazine HCl (Hydralazine HCl) 25 Mg Tablet, 25 MG PO TID, (Reported) Insulin Lispro (Humalog) 100 Unit/1 Ml Cartridge, 1 DOSE SC ASDIRECTED, (Reported) VIA INSULIN PUMP Mirtazapine (Mirtazapine) 45 Mg Tab.rapdis, 45 MG PO QPM, (Reported) Pantoprazole Sodium (Pantoprazole Sodium) 40 Mg Tab, 40 MG PO BID, (Reported) Spironolactone (Spironolactone) 25 Mg Tab, 25 MG PO BID, (Reported) Thiamine HCl (Thiamine HCl) 100 Mg Tablet, 100 MG PO DAILY, (Reported) Scheduled PRN Dextrose (Glucose) 4 Gm Tab.chew, 4 GM PO for LOW BLOOD SUGAR, (Reported) Hydrocodone/Acetaminophen (Hydrocodone-Acetamin 5-325 mg) 1 Each Tablet, 1 TAB PO Q6H PRN for PAIN, (Reported) Allergies Coded Allergies: Quinolones (Verified Allergy, Mild, RASH, 02/16/19) CHARLES Inhibitors (Verified Adverse Reaction, Intermediate, ARF, 02/16/19) NSAIDS (Non-Steroidal Anti-Inflamma (Verified Adverse Reaction, Intermedia te, KIDNEY DAMAGE, 02/16/19) celecoxib (Verified Adverse Reaction, Intermediate, KIDNEY DAMAGE, 02/16/19) gabapentin (Verified Adverse Reaction, Intermediate, personality changes, 02/17/19) ibuprofen (Verified Adverse Reaction, Intermediate, KIDNEY DAMAGE, 02/16/19) lisinopril (Verified Adverse Reaction, Intermediate, RENAL FAILURE, 02/16/19) sulfamethoxazole (Verified Adverse Reaction, Intermediate, RENAL FAILURE, 02/16/19) trimethoprim (Verified Adverse Reaction, Intermediate, RENAL FAILURE, 02/16/19) cefazolin (Verified Adverse Reaction, Mild, DIZZINESS, 02/16/19) cyclobenzaprine (Verified Adverse Reaction, Mild, DIZZINESS, 02/16/19) hydrochlorothiazide (Verified Adverse Reaction, Mild, DIZZINESS, 02/16/19) triamterene (Verified Adverse Reaction, Mild, DIZZINESS, 02/16/19) A-FIB/CHADSVASC A-FIB History Current/History of A-Fib/PAF?: No Review of Systems Constitutional: Reports: Malaise, Weakness, Fatigue; Denies: Chills, Fever Eyes: Denies: Pain, Vision change ENT: Denies: Head Aches, Ear Pain Skin: Denies: Rash, Lesions Pulmonary: Denies: Dyspnea, Cough Cardiovascular: Denies: Chest Pain, Palpitations, Orthopnea Gastrointestinal: Denies: Nausea, Vomiting, Abdominal Pain Genitourinary: Denies: Dysuria, Frequency Endocrine: Denies: Polydipsia, Polyphagia Musculoskeletal: Denies: Neck Pain, Back Pain Neurological: Reports: Weakness; Denies: Numbness, Change in speech, Confusion Psych: Reports: Mood Normal; Denies: Anxiety, Depression Physical Examination General Exam: Positive: Alert, Cooperative, No Acute Distress Eye Exam: Positive: PERRLA ENT Exam: Positive: Atraumatic, Mucous membr. moist/pink Neck Exam: Positive: Supple; Negative: JVD Chest Exam: Positive: Clear to auscultation, Normal air movement Heart Exam: Positive: Rate Normal, Regular Rhythm Abdomen Exam: Positive: Normal bowel sounds, Soft; Negative: Tenderness Extremity Exam: Positive: Normal pulses; Negative: Edema Skin Exam: Positive: Nl turgor and temperature; Negative: Rash Neuro Exam: Positive: Normal Gait, Normal Speech, Strength at 5/5 X4 ext Psych Exam: Positive: Mental status NL, Mood NL; Negative: Anxiety Vital Signs Vital Signs Date Time Temp Pulse Resp B/P (MAP) Pulse Ox O2 Delivery O2 Flow Rate FiO2 05/28/19 20:45 52 18 159/71 (100) 97 Room Air 05/28/19 20:04 97.4 Laboratory Data Labs 24H Laboratory Tests 2 05/28/19 17:24: Nucleated Red Blood Cells % (auto) 0.0, Anion Gap 12, Glomerular Filtration Rate 15.2L, Blood Urea Nitrogen 33H, Creatinine 4.19H, Sodium Level 138, Potassium Level 3.4L, Chloride Level 97L, Carbon Dioxide Level 29, Calcium Level 8.1L, Aspartate Amino Transf (AST/SGOT) 21, Alanine Aminotransferase (ALT/SGPT) 23, Alkaline Phosphatase 84, Total Bilirubin 0.2, Total Protein 6.5, Albumin 3.1L, Iron Level 113, Total Iron Binding Capacity 169L, Transferrin % Saturation 66.9H, Ferritin 930H, Albumin/Globulin Ratio 0.91L CBC/BMP Laboratory Tests 05/28/19 17:24 Red Blood Count 2.16 L, Mean Corpuscular Volume 103.2 H, Mean Corpuscular Hemoglobin 36.6 H, Mean Corpuscular Hemoglobin Concent 35.4, Red Cell Distribution Width 15.1 H, Calcium Level 8.1 L, Aspartate Amino Transf (AST/ SGOT) 21, Alanine Aminotransferase (ALT/SGPT) 23, Alkaline Phosphatase 84, Total Bilirubin 0.2, Total Protein 6.5, Albumin 3.1 L Assessment/Plan Acute on Chronic Anemia, in the Setting of ESRD on HD and Antiplatelet use - Admit to inpatient - Anemia w/u - Nephrology consult - Transfuse two units RBC as suggested by nephrology - No GI coverage available tonight; consult tomorrow for possible colonoscopy or it can be done as outpatient is Hb stable. - Hold antiplatelet agent for now Continue home meds for other chronic conditions. Plan / VTE VTE Prophylaxis Ordered?: Yes VTE Exclusion Mechanical Proph: N/A:VTE Prophy Ordered VTE Exclusion Pharmacological: Bleeding Risk Plan Diet: Continue Current Activity: Encourage Ambulation Diagnostics: Repeat Labs in AM Anticipated Discharge: ALESHIA Frias MD May 28, 2019 21:55
[2019-05-28] MEDS: PANTOPRAZOLE 40MG TAB (PROTONIX) PO SCH (23:13)
[2019-05-28] MEDS: **hydrALAZINE HCL** 25 MG TAB PO SCH (23:14)
[2019-05-29 06:00] VITALS: BP 157/70
[2019-05-29 06:09] LABS: HEMATOCRIT 27.8 % (42.0-52.0); HEMOGLOBIN 9.6 g/dl (13.5-17.5); MEAN CORPUSCULAR HEMOGLOBIN 34.4 pg (27.0-33.0); MEAN CORPUSCULAR HGB CONC 34.5 g/dl (32.0-36.5); MEAN CORPUSCULAR VOLUME 99.6 fl (80.0-96.0); PLATELET COUNT, AUTOMATED 170 10^3/uL (150-450); RED BLOOD COUNT 2.79 10^6/uL (4.30-6.10); WHITE BLOOD COUNT 4.6 10^3/uL (4.0-10.0)
[2019-05-29 06:35] LABS: CALCIUM LEVEL 7.7 MG/DL (8.8-10.2); CREATININE FOR GFR 5.3 MG/DL (0.70-1.30); GLOMERULAR FILTRATION RATE 11.6 (>49)
[2019-05-29] MEDS: HumaLOG INSULIN (NovoLOG) PER UNIT SC SCH ×2 (07:18→11:06)
[2019-05-29 07:42] VITALS: BP 156/72
[2019-05-29] MEDS: **hydrALAZINE HCL** 25 MG TAB PO SCH (07:42)
[2019-05-29] MEDS: SPIRONOLACTONE 25 MG TAB PO SCH (07:42)
[2019-05-29] MEDS: PANTOPRAZOLE 40MG TAB (PROTONIX) PO SCH (07:43)
[2019-05-29] MEDS ORDERED: POTASSIUM CHLORIDE 10 MEQ SR TABLET PO ONE (08:00)
[2019-05-29] MEDS ORDERED: ALLOPURINOL 100 MG TAB PO SCH (09:00)
[2019-05-29] MEDS ORDERED: THIAMINE 100 MG TAB PO SCH (09:00)
[2019-05-29] MEDS ORDERED: cloNIDine 0.1 MG TAB PO SCH (09:00)
[2019-05-29 09:33] LABS: FOLATE 8.1 NG/ML (>5.4)
--- NOTE | 2019-05-29 12:09 | DS.PDOC ---
Discharge Summary General Date of Admission May 28, 2019 at 17:02 Date of Discharge 05/29/19 Discharge Summary PROCEDURES PERFORMED DURING STAY: [None]. ADMITTING DIAGNOSES: 1. Symptomatic anemia 2. ESRD on HD 3. HTN 4. PVD 5. DM 2 DISCHARGE DIAGNOSES: 1. Symptomatic anemia 2. ESRD on HD 3. HTN 4. PVD 5. DM 2 COMPLICATIONS/CHIEF COMPLAINT: Systomatic Anemia. HISTORY OF PRESENT ILLNESS: "Mr. Norwood is a 68 years old man with ESRD on HD, last HD today. He was sent by Dr. Cottrell for anemia w/u and blood transfusion. Pt reports exertional dyspnea, fatigue, generalized weakness and lightheaded on standing for about a week. He denies any visible bleeding or melena. He had blood transfusion once several months ago. Pt has known hx/o anemia due to renal disease. his last Hb 3 months ago was 12.7; today 7.9. Pt takes aspirin at home. He denies any hx/o colonoscopy. Vitals and mental status are good." HOSPITAL COURSE: Patient was transfused 2 units pRBC with appropriate response with Hb from 7.9->9.6. He states that he feels a lot better and denies any complaints. Discussed GI evaluation for colonoscopy and investigation of anemia but patient does not want to get a colonoscopy at this time and wants to go home this morning as his son is coming in from [place]. He stated that he has had sco pe with Dr. Albarran before and advised to follow up with him as outpatient instead. Does not think he needs anymore intervention including PT assessment. Will discharge patient to f/u PMD, Nephrology as well as GI to hopefully get investigation for suspected GI bleed as outpatient. DISCHARGE MEDICATIONS: Please see below. ALLERGIES: Please see below. PHYSICAL EXAMINATION ON DISCHARGE: VITAL SIGNS: Please see below. General: No acute distress, Alert, weak Eyes: Normal sclera, EOMI, GARTH HENT: Atraumatic, neck supple, moist mucous membranes Cardiovascular: Normal rate, normal rhythm. Pulmonary: Clear to auscultation b/l, no wheezing GI: Soft, nontender, nondistended Skin: Warm and dry Neuro: CN grossly intact. No focal deficits. Psych: oriented x 3 LABORATORY DATA: Please see below. ACTIVITY: [As tolerated]. DIET: Low sodium DISCHARGE PLAN: f/u PMD, nephrology and GI Need FOBT DISPOSITION: Home. DISCHARGE INSTRUCTIONS: f/u PMD, nephrology and GI ITEMS TO FOLLOWUP ON ON OUTPATIENT: None. DISCHARGE CONDITION: [Stable]. TIME SPENT ON DISCHARGE: 32 minutes. Vital Signs/I&Os Vital Signs Date Time Temp Pulse Resp B/P (MAP) Pulse Ox O2 Delivery O2 Flow Rate FiO2 05/29/19 07:42 156/72 05/29/19 06:00 97.9 52 16 95 05/28/19 20:45 Room Air I&O- Last 24 Hours up to 6 AM 05/29/19 06:00 Intake Total 643 ml Output Total 0 ml Balance 643 ml Laboratory Data Labs 24H Laboratory Tests 2 05/28/19 17:24: Nucleated Red Blood Cells % (auto) 0.0, Anion Gap 12, Glomerular Filtration Rate 15.2L, Blood Urea Nitrogen 33H, Creatinine 4.19H, Sodium Level 138, Potassium Level 3.4L, Chloride Level 97L, Carbon Dioxide Level 29, Calcium Level 8.1L, Aspartate Amino Transf (AST/SGOT) 21, Alanine Aminotransferase (ALT/SGPT) 23, Alkaline Phosphatase 84, Total Bilirubin 0.2, Total Protein 6.5, Albumin 3.1L, Iron Level 113, Total Iron Binding Capacity 169L, Transferrin % Saturation 66.9H, Ferritin 930H, Albumin/Globulin Ratio 0.91L, Folate 8.1 05/29/19 05:17: Nucleated Red Blood Cells % (auto) 0.0, Anion Gap 8, Glomerular Filtration Rate 11.6L, Blood Urea Nitrogen 43H, Creatinine 5.30H, Sodium Level 138, Potassium Level 3.0L, Chloride Level 98, Carbon Dioxide Level 32, Calcium Level 7.7L 05/29/19 07:21: Bedside Glucose (Misc Panel) 79L CBC/BMP Laboratory Tests 05/28/19 17:24 Red Blood Count 2.16 L, Mean Corpuscular Volume 103.2 H, Mean Corpuscular Hemoglobin 36.6 H, Mean Corpuscular Hemoglobin Concent 35.4, Red Cell Distribution Width 15.1 H, Calcium Level 8.1 L, Aspartate Amino Transf (AST/SGOT) 21, Alanine Aminotransferase (ALT/SGPT) 23, Alkaline Phosphatase 84, Total Bilirubin 0.2, Total Protein 6.5, Albumin 3.1 L 05/29/19 05:17 Red Blood Count 2.79 L, Mean Corpuscular Volume 99.6 H, Mean Corpuscular Hemoglobin 34.4 H, Mean Corpuscular Hemoglobin Concent 34.5, Red Cell Distribution Width 16.2 H, Calcium Level 7.7 L FSBS Laboratory Tests Test 05/29/19 07:21 Range/Units Bedside Glucose (Misc Panel) 79 80-115 MG/DL Discharge Medications Scheduled Allopurinol (Allopurinol) 100 Mg Tablet, 100 MG PO DAILY, (Reported) Aspirin (Aspirin EC) 81 Mg Tab, 81 MG PO DAILY, (Reported) Atorvastatin Calcium (Atorvastatin Calcium) 80 Mg Tab, 80 MG PO QPM, (Reported) Calcitriol (Calcitriol) 0.25 Mcg Cap, 0.25 MCG PO HD, (Reported) SAT//SAT Calcium Carbonate (Calcium) 600 Mg Tab, 600 MG PO QPM, (Reported) Citalopram Hydrobromide (Citalopram HBr) 40 Mg Tab, 40 MG PO DAILY, (Reported) Clonidine Hcl (Clonidine HCl) 0.1 Mg Tablet, 0.1 MG PO TID, (Reported) DOES NOT TAKE ON HD DAYS (SAT//SAT) Clopidogrel Bisulfate (Clopidogrel) 75 Mg Tab, 75 MG PO DAILY, (Reported) Darbepoetin Cipriano in Polysorbat (Aranesp) 200 Mcg/Ml Inj, 200 MCG IV HD, (Reported) Ergocalciferol (Vitamin D2) (Drisdol) 50,000 Unit Cap, 50,000 UNIT PO QWEEK, (Reported) WEDNESDAYS Ferrous Sulfate (Ferrous Sulfate) 324 Mg Tab, 324 MG PO DAILY, (Reported) Hydralazine HCl (Hydralazine HCl) 25 Mg Tablet, 25 MG PO TID, (Reported) Insulin Lispro (Humalog) 100 Unit/1 Ml Cartridge, 1 DOSE SC ASDIRECTED, (Reported) VIA INSULIN PUMP Mirtazapine (Mirtazapine) 45 Mg Tab.rapdis, 45 MG PO QPM, (Reported) Pantoprazole Sodium (Pantoprazole Sodium) 40 Mg Tab, 40 MG PO BID, (Reported) Spironolactone (Spironolactone) 25 Mg Tab, 25 MG PO BID, (Reported) Thiamine HCl (Thiamine HCl) 100 Mg Tablet, 100 MG PO DAILY, (Reported) Scheduled PRN Dextrose (Glucose) 4 Gm Tab.chew, 4 GM PO for LOW BLOOD SUGAR, (Reported) Hydrocodone/Acetaminophen (Hydrocodone-Acetamin 5-325 mg) 1 Each Tablet, 1 TAB PO Q6H PRN for PAIN, (Reported) Allergies Coded Allergies: Quinolones (Verified Allergy, Mild, RASH, 02/16/19) CHARLES Inhibitors (Verified Adverse Reaction, Intermediate, ARF, 02/16/19) NSAIDS (Non-Steroidal Anti-Inflamma (Verified Adverse Reaction, Intermediate, KIDNEY DAMAGE, 02/16/19) celecoxib (Verified Adverse Reaction, Intermediate, KIDNEY DAMAGE, 02/16/19) gabapentin (Verified Adverse Reaction, Intermediate, personality changes, 02/17/19) ibuprofen (Verified Adverse Reaction, Intermediate, KIDNEY DAMAGE, 02/16/19) lisinopril (Verified Adverse Reaction, Intermediate, RENAL FAILURE, 02/16/19) sulfamethoxazole (Verified Adverse Reaction, Intermediate, RENAL FAILURE, 02/16/19) trimethoprim (Verified Adverse Reaction, Intermediate, RENAL FAILURE, 02/16/19) cefazolin (Verified Adverse Reaction, Mild, DIZZINESS, 02/16/19) cyclobenzaprine (Verified Adverse Reaction, Mild, DIZZINESS, 02/16/19) hydrochlorothiazide (Verified Adverse Reaction, Mild, DIZZINESS, 02/16/19) triamterene (Verified Adverse Reaction, Mild, DIZZINESS, 02/16/19) MERLENE FRIED MD May 29, 2019 12:09
[2019-05-29] MEDS ORDERED: ATORVASTATIN 20 MG TAB PO SCH (21:00)
--- NOTE | 2019-06-01 09:34 | CR ---
DATE OF CONSULTATION: 05/29/2019 REQUESTING PHYSICIAN: Dr. Gillian Leung CONSULTING PHYSICIAN: Dr. Perez REASON FOR CONSULTATION: Management of end-stage renal disease and hemodialysis. CHIEF COMPLAINT: The patient was sent from dialysis center because of symptomatic anemia. HISTORY OF PRESENT ILLNESS: Mr. Jonh Norwood a 68-year-old male with past medical history of end-stage renal disease on hemodialysis every Saturday, , Saturday, history of coronary artery disease status post stents, peripheral vascular disease, diabetes mellitus type 2, history of gastrointestinal (GI) bleed in the past, multiple other comorbidities as mentioned below. The patient had a hemoglobin of around 12 about 2 weeks ago during dialysis. However, repeat hemoglobin done recently showed it had dropped to 8.5. The patient was feeling weak and dizzy and lightheaded. He was sent to the emergency room for further evaluation and to rule out the possibility of GI bleed. When the patient arrived in the emergency room, he was found to have a hemoglobin of 7.9. He was admitted under the hospitalist service. Packed red blood cells (PRBC) transfusion was started. Nephrology service was called for further help in the management of end-stage renal disease. I saw and evaluated the patient today morning at the bedside. He denies any melena or hematochezia. He has gotten 2 units of blood. The patient was advised by the medical team to stay for further GI workup, including endoscopy, but the patient is adamant that he wants to leave because his son is coming from [place] today. PAST MEDICAL HISTORY: Past medical history of end-stage renal disease on hemodialysis every Saturday, , Saturday, coronary artery disease status post stent, peripheral vascular disease, hypertension, diabetes mellitus type 2, anemia secondary to chronic kidney disease, history of GI bleed in the past, hyperlipidemia, secondary hyperparathyroidism, history of depression. PAST SURGICAL HISTORY: Past surgical history of cardiac catheterization, right iliofemoral bypass and left femoral popliteal bypass grafting, right 2nd toe amputation, and right forearm arteriovenous (AV) fistula placement. ALLERGIES: He is allergic to ANGIOTENSIN-CONVERTING ENZYME (CHARLES) INHIBITORS, NONSTEROIDAL ANTI-INFLAMMATORY DRUGS (NSAIDS), QUINOLONES, CEPAHALOSPORINS, CELECOXIB, FLEXERIL, GABAPENTIN, HYDROCHLOROTHIAZIDE, and IBUPROFEN. FAMILY HISTORY: No significant family history of end-stage renal disease requiring hemodialysis. SOCIAL HISTORY: The patient lives with his . He is a former smoker. He denies any illicit drug abuse or alcohol abuse. REVIEW OF SYSTEMS: Constitutional: When he arrived he was feeling weak and tired. However, he feels better now. Eyes: He denies any blurry vision. ENT: He denies any dysphagia or odynophagia. Cardiovascular: He denies any chest pain or palpitation. Respiratory: He denies any shortness of breath or cough. GI: He denies any nausea, vomiting, melena or hematochezia. Genitourinary: He denies any dysuria or hematuria. Musculoskeletal: He denies any muscle aches and pains. Skin: He denies any rashes or ulcers. Psychiatric: He denies any depression at this time. Central nervous system (EVENT MARKETING SPECIALIST): He denies any strokes or seizures. Hematology/Oncology. He denies any easy bleeding or bruising. All other review of systems is negative. PHYSICAL EXAMINATION: General: The patient is awake, alert, oriented times three, laying in bed. Vital signs: Temperature is 97.9 degrees Fahrenheit, blood pressure 157/70, pulse is 52, respiratory rate of 16, saturating 95% on room air. Head and neck exam: Extraocular muscles intact. Pupils equally round and reactive to light. Mucous membranes are moist. Neck is supple. There is no jugular venous distention (JVD). Cardiovascular: S1, S2, regular rate. No edema of the bilateral lower extremities. Respiratory: Chest is clear to auscultation bilaterally. Bilateral equal air entry. No rales or rhonchi. Abdomen: Soft, positive bowel sounds. Nontender. Musculoskeletal: No clubbing or cyanosis. Pulses are 2+. EVENT MARKETING SPECIALIST: The patient is hard of hearing. He is wearing hearing aids in both ears. Otherwise, no focal deficit. AV access: He has a right forearm AV fistula with positive thrill and bruit. LAB REVIEW: CBC showed WBC of 4.6, hemoglobin 9.6, it was 7.9 yesterday, platelets of 170. BMP showed sodium 138, potassium 3 chloride 98, bicarbonate 32, BUN 43, creatinine is 5.3, calcium 7.7. CURRENT INPATIENT MEDICATIONS: The patient's medications were all reviewed by me. He is on Tylenol as needed, allopurinol 100 mg by mouth daily, Lipitor 80 mg nightly, clonidine 0.1 mg by mouth one dose, Aranesp 200 mcg IV with hemodialysis, hydralazine 25 mg by mouth three times a day, insulin sliding scale, Milk of Magnesia, mirtazapine 45 mg by mouth nightly, Protonix 40 mg by mouth twice a day, potassium 20 mEq by mouth one dose, spironolactone 25 mg by mouth twice a day, thiamine 100 mcg by mouth daily, vitamin D 50,000 units once a week. ASSESSMENT: 68-year-old male with history of hypertension, end-stage renal disease on hemodialysis every Saturday, , Saturday, secondary hyperparathyroidism, anemia, and diabetes mellitus type 2 admitted at this time with symptomatic anemia. PLAN: 1. End-stage renal disease on hemodialysis. The patient was dialyzed yesterday according to his regular schedule. There is no urgent need of hemodialysis today. If the patient agrees to stay in the hospital, he will be dialyzed tomorrow as outpatient. 2. Symptomatic anemia. The patient has history of GI bleed in the past as well. He was using aspirin as outpatient. Most likely he is having some occult GI bleeding. He needs endoscopy in the hospital but the patient is refusing to stay and he states that his son is coming from [place] today and he adamantly is refusing to have any procedure done. The patient was advised to followup with Dr. Albarran as outpatient and get the endoscopies done, and if upper and lower GI endoscopy do not show any active bleeding he will probably need capsule endoscopy. 3. Hypertension with end-stage renal disease. Continue current home regimen of antihypertensive. Blood pressure level is acceptable. 4. Hypokalemia. The patient was given a dose of potassium chloride orally. He is also on spironolactone twice a day. 5. 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 Continue current dose of allopurinol 100 mg by mouth daily. 6. Diabetes mellitus, type 2, insulin dependent. The patient is on insulin pump. He adjusts the insulin pump as per [facility]. Continue the home dose for now. DISPOSITION: The patient is refusing to stay. Most likely he would leave the hospital against medical advice. Thank you for involving me in the care of this patient. I shall be happy to follow the patient along with you tomorrow morning if he agrees to stay in the hospital.
[2019-06-03] MEDS ORDERED: VITAMIN D 50,000 UNITS CAPSULE (ERGOCALCIFEROL 1.25MG) PO SCH
== END 2019-05-29 12:51 | disposition home or self-care (01) ==
LOC: M ED 17:01 → M ED INP 17:02 → M MSPAV 21:04
PROVIDERS: ADMIT Internal Medicine; ATTEND Student in an Organized Health Care Education/Training Program
DX: D64.9 Anemia, unspecified (principal); N18.6 End stage renal disease; I12.0 Hypertensive chronic kidney disease with stage 5 chronic kidney disease or end stage renal disease; Z79.899 Other long term (current) drug therapy; E87.6 Hypokalemia; I73.9 Peripheral vascular disease, unspecified; E11.9 Type 2 diabetes mellitus without complications; Z79.4 Long term (current) use of insulin; Z79.82 Long term (current) use of aspirin; I25.10 Atherosclerotic heart disease of native coronary artery without angina pectoris; Z98.61 Coronary angioplasty status; Z95.1 Presence of aortocoronary bypass graft; Z87.891 Personal history of nicotine dependence; Z88.2 Allergy status to sulfonamides; Z88.8 Allergy status to other drugs, medicaments and biological substances
CPT/HCPCS: 36415; 36430; 80048; 80053; 82728; 82746; 83550; 85027; 86850; 86900; 86901; 86920; 93005; 99285; G0378; P9016

== ENCOUNTER 2019-06-06 15:56 | Emergency (ER) | payer MEDICARE ==
[~2019-06-06] VITALS: Ht 165.1 cm; Wt 71.8 kg
[~2019-06-06 15:56] MED LIST changes: +ALLO100T PO; +GLUC4GMTAB PO; +THIA100T7 PO
[2019-06-06 16:28] LABS: BASO % 0.7 % (0.0-1.0); EOS # 0.1 10^3/uL (0.0-0.5); EOS % 2.1 % (0.0-3.0); HEMATOCRIT 32.5 % (42.0-52.0); LYMPH # 0.7 10^3/uL (1.5-5.0); LYMPH % 15.5 % (24.0-44.0); MEAN CORPUSCULAR HEMOGLOBIN 34.8 pg (27.0-33.0); MEAN CORPUSCULAR HGB CONC 33.8 g/dl (32.0-36.5); MEAN CORPUSCULAR VOLUME 102.8 fl (80.0-96.0); MONO # 0.5 10^3/uL (0.0-0.8); MONO % 12.2 % (0.0-5.0); NEUTROPHILS # 2.9 10^3/uL (1.5-8.5); NEUTROPHILS % 68.8 % (36.0-66.0); PLATELET COUNT, AUTOMATED 270 10^3/uL (150-450); RED BLOOD COUNT 3.16 10^6/uL (4.30-6.10); WHITE BLOOD COUNT 4.3 10^3/uL (4.0-10.0)
[2019-06-06 16:40] LABS: PROTHROMBIN TIME 12.9 SECONDS (11.8-14.0)
[2019-06-06] MEDS ORDERED: HYDR-3910 PO (16:40)
[2019-06-06] MEDS ORDERED: iron PO (16:40)
[2019-06-06 16:41] LABS: PARTIAL THROMBOPLASTIN TIME 32.4 SECONDS (25.0-38.4)
[2019-06-06 16:50] LABS: ALBUMIN 3.4 GM/DL (3.2-5.2); ALT/SGPT 24 U/L (12-78); BILIRUBIN,DIRECT < 0.1 MG/DL (0.0-0.2); BILIRUBIN,TOTAL 0.3 MG/DL (0.2-1.0); LIPASE 84 U/L (73-393); TOTAL PROTEIN 7.6 GM/DL (6.4-8.2)
--- NOTE | 2019-06-06 18:02 | REPVR ---
PROCEDURE INFORMATION: Exam: CT Head Without Contrast Exam date and time: 06/06/2019 5:20 PM Clinical history: 69 years old, male; Weakness, extremity; Bilateral; Additional info: Wkness TECHNIQUE: Imaging protocol: Computed tomography of the head without contrast. Radiation optimization: All CT scans at this facility use at least one of these dose optimization techniques: automated exposure control; mA and/or kV adjustment per patient size (includes targeted exams where dose is matched to clinical indication); or iterative reconstruction. COMPARISON: CT Head without contrast 02/17/2019 11:45 PM FINDINGS: Brain: There is no evidence of intracranial bleed. The soriano-white differentiation appears preserved. Ventricles: Normal ventricles. Bones/joints: There is no evidence of fracture. Sinuses: Clear paranasal sinuses. Mastoid air cells: Clear mastoid air cells. Soft tissues: Unremarkable. Vasculature: There is calcification carotid siphon bilaterally consistent with atherosclerotic change. IMPRESSION: 1. No evidence of bleed. 2. No evidence of acute stroke. MRI would be more sensitive for this. Electronically signed by: Alexei Schumacher On 06/06/2019 18:02:51 PM
[2019-06-06 18:20] VITALS: BP 181/77
--- NOTE | 2019-06-06 19:36 | ECGEPIP ---
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
--- NOTE | 2019-06-07 08:07 | REP ---
AP PORTABLE CHEST: 06/06/2019. Comparison: 02/17/2019. Clinical history: Weakness. Findings: Lungs slightly hypoinflated. Combined with portable technique, this exaggerates the heart size. There is left ventricular configuration of the heart. The aorta is calcified and tortuous. Slight prominence of pulmonary arteries centrally. Some linear scarring or atelectasis in the perihilar region of the right. No gross effusion. No dense consolidation or parenchymal mass visible. Airway intact. Impression: 1. Somewhat hypoinflated chest exaggerating heart size but no abril edema, definite effusion or acute infiltrate. 2. Tortuous aorta unchanged. Airway intact. Some linear fibrotic or atelectatic change adjacent to the right hilum. Electronically Signed by Kevin Vasquez MD 06/07/2019 10:38 A
== END 2019-06-06 18:29 | disposition home or self-care (01) ==
LOC: M ED 15:56
DX: R53.1 Weakness (principal); R42 Dizziness and giddiness; I10 Essential (primary) hypertension; J44.9 Chronic obstructive pulmonary disease, unspecified; E78.9 Disorder of lipoprotein metabolism, unspecified; D64.9 Anemia, unspecified; Z79.899 Other long term (current) drug therapy; Z79.82 Long term (current) use of aspirin; Z79.4 Long term (current) use of insulin; Z79.01 Long term (current) use of anticoagulants; Z88.1 Allergy status to other antibiotic agents; Z88.2 Allergy status to sulfonamides; Z88.8 Allergy status to other drugs, medicaments and biological substances; F17.210 Nicotine dependence, cigarettes, uncomplicated

== ENCOUNTER 2019-07-04 15:05 | Outpatient (CLI) | payer MEDICARE ==
[2019-07-04] VITALS (10 sets, daily range): BP systolic 142–168; BP diastolic 60–76
[~2019-07-04] VITALS: Ht 165.1 cm; Wt 74.4 kg
== END 2019-07-04 23:37 | disposition home or self-care (01) ==
LOC: M OPCLI5PR 15:05 → M MS5PR 15:14 → M OPCLI5PR 23:37
PROVIDERS: ATTEND Internal Medicine Nephrology
DX: N18.9 Chronic kidney disease, unspecified (principal); D63.1 Anemia in chronic kidney disease
CPT/HCPCS: 36415; 36430; 86850; 86900; 86901; 86920; P9016

== ENCOUNTER 2019-07-06 12:29 | Day surgery (SDC) | payer MEDICARE ==
[~2019-07-06] VITALS: Ht 165.1 cm; Wt 73.1 kg
[~2019-07-06 12:29] MED LIST changes: +NS 1,000 ML IV ONE
[2019-07-06] MEDS ORDERED: LIDOCAINE 2% INJ 100 MG/5 ML SDV (FOR ANES.) As Ordered ONE (15:06)
[2019-07-06] MEDS ORDERED: PROPOFOL 200 MG/20 ML VIAL As Ordered ONE (15:06)
[2019-07-06] MEDS ORDERED: hydrALAZINE INJ 20 MG/ML VIAL As Ordered ONE (15:26)
--- NOTE | 2019-07-06 16:09 | ROOR ---
Patient Name: Jonh Norwood Procedure Date: 07/06/2019 3:15 PM Date of : 1950 Age: 69 Room: [facility] Gender: Male Note Status: Finalized Procedure: Upper GI endoscopy Indications: Acute post hemorrhagic anemia Providers: Gorge ALBARRAN MD Referring MD: Mick Rosenberg MD, Armando Cottrell MD Requesting Provider: Medicines: Monitored Anesthesia Care Complications: No immediate complications. Procedure: Pre-Anesthesia Assessment: - The heart rate, respiratory rate, oxygen saturations, blood pressure, adequacy of pulmonary ventilation, and response to care were monitored throughout the procedure. The Endoscope was introduced through the mouth, and advanced to the third part of duodenum. The upper GI endoscopy was accomplished without difficulty. The patient tolerated the procedure well. Findings: Scattered mucosal changes characterized by discoloration were found in the gastric antrum. Biopsies were taken with a cold forceps for histology. The entire examined stomach was normal. The examined esophagus was normal. The examined duodenum was normal. Impression: - Normal stomach. Discolored mucosa in the antrum (likely melanosis/iron). Biopsied. - Normal esophagus. - Normal examined duodenum. Recommendation: - Observe patient's clinical course. - Pt with history of small bowel AVM's. Depending on transfusion demands, consideration may be given to a trial on Sandostatin LAR 10 gm IM q 4 weeks to possibly reduce transfusion demands. Gorge Albarran MD Gorge ALBARRAN MD 07/06/2019 4:09:12 PM Electronically signed by Gorge ALBARRAN MD Number of Addenda: 0 Note Initiated On: 07/06/2019 3:15 PM Estimated Blood Loss: Estimated blood loss: none.
--- NOTE | 2019-07-06 16:12 | ROOR ---
Patient Name: Jonh Norwood Procedure Date: 07/06/2019 3:15 PM Date of : 1950 Age: 69 Room: [facility] Gender: Male Note Status: Finalized Procedure: Colonoscopy Indications: Acute post hemorrhagic anemia Providers: Gorge ALBARRAN MD Referring MD: Mick Rosenberg MD, Armando Cottrell MD Requesting Provider: Medicines: Monitored Anesthesia Care Complications: No immediate complications. Procedure: Pre-Anesthesia Assessment: - The heart rate, respiratory rate, oxygen saturations, blood pressure, adequacy of pulmonary ventilation, and response to care were monitored throughout the procedure. The Colonoscope was introduced through the anus and advanced to 10 cm into the ileum. The colonoscopy was performed without difficulty. The patient tolerated the procedure well. The quality of the bowel preparation was good. Findings: The perianal and digital rectal examinations were normal. Mild sigmoid diverticulosis and small internal hemorrhoids. The entire examined colon appeared normal on direct and retroflexion views. The terminal ileum appeared normal. Impression: - Mild sigmoid diverticulosis and small internal hemorrhoids. - The entire examined colon is normal on direct and retroflexion views. - The examined portion of the ileum was normal. - No specimens collected. Recommendation: - Pt with history of small bowel AVM's. Depending on transfusion demands, consideration may be given to a trial on Sandostatin LAR 10 gm IM q 4 weeks to possibly reduce transfusion demands. Gorge Albarran MD Gorge ALBARRAN MD 07/06/2019 4:12:01 PM Electronically signed by Gorge ALBARRAN MD Number of Addenda: 0 Note Initiated On: 07/06/2019 3:15 PM Estimated Blood Loss: Estimated blood loss: none.
[2019-07-06 16:35] VITALS: BP 181/78
== END 2019-07-06 16:46 | disposition home or self-care (01) ==
LOC: M OPP 12:29
PROVIDERS: ATTEND Internal Medicine Gastroenterology
DX: D62 Acute posthemorrhagic anemia (principal); K31.89 Other diseases of stomach and duodenum

== ENCOUNTER 2019-07-08 15:08 | Emergency (ER) | payer MEDICARE ==
[~2019-07-08] VITALS: Ht 165.1 cm; Wt 74.2 kg
[~2019-07-08 15:08] MED LIST changes: -NS 1,000 ML IV ONE
[2019-07-08 16:45] LABS: BASO % 0.8 % (0.0-1.0); EOS # 0.1 10^3/uL (0.0-0.5); EOS % 2.7 % (0.0-3.0); HEMATOCRIT 37.6 % (42.0-52.0); HEMOGLOBIN 12.5 g/dl (13.5-17.5); LYMPH # 0.7 10^3/uL (1.5-5.0); LYMPH % 19.8 % (24.0-44.0); MEAN CORPUSCULAR HEMOGLOBIN 34.2 pg (27.0-33.0); MEAN CORPUSCULAR HGB CONC 33.2 g/dl (32.0-36.5); MEAN CORPUSCULAR VOLUME 102.7 fl (80.0-96.0); MONO # 0.5 10^3/uL (0.0-0.8); MONO % 13.4 % (0.0-5.0); NEUTROPHILS # 2.3 10^3/uL (1.5-8.5); NEUTROPHILS % 62.5 % (36.0-66.0); PLATELET COUNT, AUTOMATED 210 10^3/uL (150-450); RED BLOOD COUNT 3.66 10^6/uL (4.30-6.10); WHITE BLOOD COUNT 3.7 10^3/uL (4.0-10.0)
--- NOTE | 2019-07-08 16:50 | REP ---
CT brain: 07/08/2019. Indication: Weakness. Stroke. Comparison: 06/06/2019. Technique: Unenhanced axial CT images of the brain were obtained from skull base to vertex. Findings: There is no acute intracranial hemorrhage, acute cortical infarction, mass effect or hydrocephalous. Chronic left thalamic lacunar infarction is present. Volume loss is noted diffusely. Impression: No acute intracranial process. Electronically Signed by Lázaro Snowden DO 07/08/2019 04:42 P
--- NOTE | 2019-07-08 16:55 | REP ---
CT cervical spine: 07/08/2019. Indication: Cervical spine trauma. Comparison: 10/29/2017. Technique: Unenhanced axial CT images of the cervical spine were obtained with coronal and sagittal reconstructions provided. Findings: There is no acute fracture, subluxation or dislocation. There is straightening of the cervical lordosis. Multilevel spondylosis is present without severe spinal canal narrowing detected. Bilateral carotid atherosclerotic disease is present more pronounced on the left. Impression: No acute osseous cervical spine injury. Electronically Signed by Lázaro Snowden DO 07/08/2019 04:46 P
[2019-07-08 17:05] LABS: INR 0.96; PROTHROMBIN TIME 12.5 SECONDS (11.8-14.0)
[2019-07-08 17:06] LABS: PARTIAL THROMBOPLASTIN TIME 36.9 SECONDS (25.0-38.4)
[2019-07-08 17:10] LABS: BILIRUBIN,DIRECT 0.1 MG/DL (0.0-0.2); BILIRUBIN,TOTAL 0.5 MG/DL (0.2-1.0); CALCIUM LEVEL 8.7 MG/DL (8.8-10.2); CREATININE FOR GFR 5.79 MG/DL (0.70-1.30); GLOMERULAR FILTRATION RATE 10.4 (>49); MAGNESIUM LEVEL 2.1 MG/DL (1.8-2.4); POTASSIUM SERUM 3.7 MEQ/L (3.5-5.1); TOTAL PROTEIN 6.7 GM/DL (6.4-8.2)
--- NOTE | 2019-07-08 17:39 | REP ---
Portable chest x-ray: Single view: History: CVA. Comparison chest x-ray: June 06, 2019. Findings: There are bibasilar discoid atelectatic changes right greater than left. These are new from the comparison study. Lung ernandez are otherwise clear. Heart is not enlarged. Aorta is tortuous. Impression: New bibasilar plate-like atelectatic changes. Electronically Signed by Garry Willingham MD 07/08/2019 06:01 P
[2019-07-08] MEDS ORDERED: BACLOFEN 10 MG TAB PO ONE (17:45)
[2019-07-08] MEDS ORDERED: BACL10TA2 PO (18:04)
[2019-07-08 18:10] VITALS: BP 200/80
[2019-07-09] MEDS ORDERED: FERR325T3 PO (16:23)
[2019-07-09] MEDS ORDERED: REME15TA PO (16:23)
[2019-07-09] MEDS ORDERED: COMBAER6 INH (16:23)
[2019-07-09] MEDS ORDERED: BACL10TA2 PO (16:24)
[2019-07-09] MEDS ORDERED: CALC1CAP31 PO (16:28)
[2019-07-09] MEDS ORDERED: CLONI1TA PO (16:28)
== END 2019-07-08 18:15 | disposition home or self-care (01) ==
LOC: M ED 15:08
DX: M54.2 Cervicalgia (principal); I65.23 Occlusion and stenosis of bilateral carotid arteries; R91.8 Other nonspecific abnormal finding of lung field; E10.9 Type 1 diabetes mellitus without complications; E78.5 Hyperlipidemia, unspecified; I10 Essential (primary) hypertension; J44.9 Chronic obstructive pulmonary disease, unspecified; Z79.4 Long term (current) use of insulin; Z79.82 Long term (current) use of aspirin; Z79.891 Long term (current) use of opiate analgesic; Z79.899 Other long term (current) drug therapy; Z86.14 Personal history of Methicillin resistant Staphylococcus aureus infection; Z88.6 Allergy status to analgesic agent; Z88.8 Allergy status to other drugs, medicaments and biological substances; Z89.421 Acquired absence of other right toe(s); Z95.5 Presence of coronary angioplasty implant and graft; Z95.820 Peripheral vascular angioplasty status with implants and grafts

== ENCOUNTER 2019-07-09 14:53 | Inpatient (IN) | payer MEDICARE ==
[~2019-07-09] VITALS: Ht 165.1 cm; Wt 68.9 kg
[~2019-07-09 14:53] MED LIST changes: +BACL10TA2 PO
[2019-07-09 15:33] LABS: VENOUS BASE EXCESS 5.5 (-2.0-2.0); VENOUS HCO3 28.1 MEQ/L (23.0-27.0); VENOUS O2 SATURATION 96.8 % (60.0-80.0); VENOUS PARTIAL PRESSURE CO2 34.7 mmHg (38.0-50.0); VENOUS PARTIAL PRESSURE O2 80.4 mmHg (30.0-50.0); VENOUS PH 7.526 UNITS (7.330-7.430); VENOUS STANDARD HCO3 29.4 MEQ/L; VENOUS TOTAL CO2 29.1 MEQ/L (24.0-28.0)
[2019-07-09 15:37] LABS: BASO % 0.6 % (0.0-1.0); EOS # 0.1 10^3/uL (0.0-0.5); EOS % 1.9 % (0.0-3.0); LYMPH # 0.5 10^3/uL (1.5-5.0); MEAN CORPUSCULAR HEMOGLOBIN 34.6 pg (27.0-33.0); MEAN CORPUSCULAR HGB CONC 34.1 g/dl (32.0-36.5); MEAN CORPUSCULAR VOLUME 101.2 fl (80.0-96.0); MONO # 0.6 10^3/uL (0.0-0.8); MONO % 11.4 % (0.0-5.0); NEUTROPHILS # 3.6 10^3/uL (1.5-8.5); NEUTROPHILS % 74.3 % (36.0-66.0); PLATELET COUNT, AUTOMATED 199 10^3/uL (150-450); RED BLOOD COUNT 4.05 10^6/uL (4.30-6.10); WHITE BLOOD COUNT 4.8 10^3/uL (4.0-10.0)
--- NOTE | 2019-07-09 15:50 | REP ---
Portable chest x-ray: Single view. History: Altered mental status. Comparison study: July 08, 2019. Findings: Monitoring electrodes are seen. There is slight blunting of the right lateral pleural angle. Plate-like atelectasis is seen in the right base. The left lateral pleural angle is sharp. Impression: Slight blunting of the right lateral pleural angle and discoid atelectasis in the right base. Otherwise no acute disease. Electronically Signed by Garry Willingham MD 07/09/2019 04:24 P
[2019-07-09 15:53] LABS: OSMOLALITY SERUM 299 MOSM/KG (280-301)
[2019-07-09] MEDS ORDERED: hydrALAZINE INJ 20 MG/ML VIAL IV STA ×2 (15:56→23:08)
--- NOTE | 2019-07-09 16:09 | REP ---
CT brain: 07/09/2019. Indication: Altered mental status. Stroke. Comparison: Yesterday. Technique: Unenhanced axial images of the brain were obtained from skull base to vertex. Findings: There is no acute intracranial hemorrhage. There is no intracranial mass effect/shift of the midline structures. The ventricles are stable. There is questionable loss of soriano-white differentiation diffusely, but is thought to be technique related. The basal cisterns are patent. Please correlate clinically and follow-up with the head CT if indicated. Chronic left thalamic lacunar infarction is redemonstrated. Impression: No acute intracranial hemorrhage. Electronically Signed by Lázaro Snowden DO 07/09/2019 04:01 P
[2019-07-09 16:19] LABS: ACETAMINOPHEN LEVEL < 2.0 UG/ML (10.0-30.0); ALBUMIN 3.1 GM/DL (3.2-5.2); ALT/SGPT 21 U/L (12-78); BILIRUBIN,DIRECT < 0.1 MG/DL (0.0-0.2); BILIRUBIN,TOTAL 0.6 MG/DL (0.2-1.0); BLOOD UREA NITROGEN 20 MG/DL (7-18); CARBON DIOXIDE LEVEL 28 MEQ/L (21-32); CHLORIDE LEVEL 103 MEQ/L (98-107); CK-MB VALUE MASS 2.5 NG/ML (<3.6); CPK CREATINE PHOSPHOKINASE 106 U/L (39-308); CREATININE FOR GFR 3.73 MG/DL (0.70-1.30); ETHYL ALCOHOL (ETHANOL) 0.003 % (0.000-0.010); GLOMERULAR FILTRATION RATE 17.3 (>49); GLUCOSE, FASTING 207 MG/DL (70-100); MB/CK RELATIVE INDEX 2.36 (< OR =4); POTASSIUM SERUM 3.6 MEQ/L (3.5-5.1); SALICYLATE LEVEL < 1.7 MG/DL (5.0-30.0); SODIUM LEVEL 141 MEQ/L (136-145); TROPONIN I < 0.02 NG/ML (< 0.10)
[2019-07-09] MEDS ORDERED: COMBAER6 INH (16:23)
[2019-07-09] MEDS ORDERED: FERR325T3 PO (16:23)
[2019-07-09] MEDS ORDERED: REME15TA PO (16:23)
[2019-07-09] MEDS ORDERED: BACL10TA2 PO (16:24)
[2019-07-09] MEDS ORDERED: CLONI1TA PO (16:28)
[2019-07-09] MEDS ORDERED: CALC1CAP31 PO (16:28)
[2019-07-09] MEDS ORDERED: GLUCOSE 4 GM CHEW TABLET PO PRN (18:15)
[2019-07-09] MEDS ORDERED: NORCO, ANEXSIA 5/325MG TABLET (HYDROcodone/ACETAMINOPHEN) PO PRN (18:15)
[2019-07-09] MEDS ORDERED: IPRATROPIUM 0.5MG/ALBUTEROL 2.5MG INH SOL UD 3ML (DUONEB)(J7620) INH PRN (18:15)
[2019-07-09] MEDS ORDERED: BACLOFEN 10 MG TAB PO PRN (18:15)
[2019-07-09] MEDS ORDERED: MOM 30ML SUSPENSION UDC PO PRN (18:30)
[2019-07-09] MEDS ORDERED: MAALOX 30 ML SUSP *UDC PO PRN (18:30)
[2019-07-09] MEDS ORDERED: ACETAMINOPHEN TAB 650MG DOSE (2X325MG) PO PRN (18:30)
[2019-07-09] MEDS ORDERED: **hydrALAZINE HCL** 25 MG TAB PO STA (18:44)
[2019-07-09] MEDS ORDERED: cloNIDine 0.1 MG TAB PO STA (18:44)
[2019-07-09] MEDS ORDERED: DEXTROSE 50% 50 ML SYRINGE IV PRN (18:45)
[2019-07-09] MEDS ORDERED: GLUCAGON FOR INJ 1 MG VIAL (J1610) SC PRN (18:45)
--- NOTE | 2019-07-09 19:13 | HPEPDOC ---
[facility] Medical History & Physical Date of Admission Jul 09, 2019 Date of Service: Jul 09, 2019 Primary Care Physician: July Martinez Attending Physician: ROBERT SANTOS MD History and Physical CHIEF COMPLAINT: Altered mental status HISTORY OF PRESENT ILLNESS: Jonh Norwood is a 69-year-old male who presented to the emergency room from dialysis after 1 day of altered mental status noticed by his as well as staff at the outpatient dialysis center. Unable to obtain an y history from the patient as he does not reliably answer questions. A history is obtained from the patient's who was with him today. She states that yesterday the patient did visit the emergency room for some neck pain and was given tizanidine and discharged home. states she did notice some mild changes in her 's mental status yesterday that she was not concerned about. However, she states that when her got up this morning he was unsteady on his feet and had decreased focus. She also notes that he couldn't figure out. 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 She states that she brought him to his regularly scheduled dialysis appointment. She thought this would help. However, the patient did not improve and dialysis staff thought that he needed to be further evaluated at the emergency department. The states that her has recently been complaining of increased shortness of breath over the past few months, especially with exertion. She believes this was related to his COPD. The denies any additional new complaints from the patient. Most of the history is obtained from the patient's or past medical records in the EMR. PAST MEDICAL HISTORY: 1. COPD 2. Hypertension 3. Diabetes mellitus type 1 with insulin pump 4. Peripheral vascular disease. 5. Spinal stenosis, lumbar. 6. CAD. 7. ESRD on hemodialysis. 8. Anemia of chronic disease. 9. Peripheral neuropathy. 10. Gout arthropathy. 11. Hyperlipidemia. 12. History of GI bleeds PAST SURGICAL HISTORY: 1. Right and left submandibular gland excisions 2. Multiple angioplasties of lower extremity arteries 3. Right femoropopliteal bypass with right second toe amputation. 4. Right ililfenoral bypass graft 5. Bilateral cataracts removal. 6. Left femoral popliteal bypass. 7. AV fistula placement. 8. Multiple colonoscopies. 9. Multiple EGDs SOCIAL HISTORY: Obtained from patient's Employment: Disabled, used to work at [employer] Tobacco use: 40-50 pack year history, quit 10-20 years ago ETOH: Occasional, one drink per week or less Illicit drug use: Denies FAMILY HISTORY: Unable to obtain due to altered mental status, unsure ALLERGIES: Please see below. REVIEW OF SYSTEMS: Unable to obtain due to altered mental status, other than what is listed in the HPI as described by the patient's . HOME MEDICATIONS: Please see below. PHYSICAL EXAMINATION: VITAL SIGNS: See below GENERAL APPEARANCE: The patient is awake, lying in bed, but does not respond a ppropriately to questions and does not follow directions. Patient does state he has no or okay and responds to questions but these responses do not appear reliable. No respiratory distress. The patient does appear tense and anxious. HEENT: Pupils reactive but sluggish bilaterally, conjunctival erythema present bilaterally CARDIOVASCULAR: Regular rate and rhythm, normal S1, S2, no murmurs, rubs or gallops. LUNGS: Decreased lung sounds bilaterally throughout, no wheezing, rhonchi, or rales. Patient was was unable to follow directions to take deep breaths ABDOMEN: Soft, nondistended, bowel sounds present, no masses palpated. MUSCULOSKELETAL: Moves all 4 extremities spontaneously EXTREMITIES: 2+ pulses in bilateral radial arteries, unable to palpate pulses in dorsalis pedis or posterior tibial arteries NEUROLOGICAL: Unable to assess due to altered mental status PSYCHIATRIC: Unable to assess due to altered mental status LABORATORY DATA: See below. IMAGING: Head CT 07/09/19: No acute intracranial hemorrhage. CXR 06/24/19: Slight blunting of the right lateral pleural angle and discoid at electasis in the right base. Otherwise no acute disease. MICROBIOLOGY: Please see below. ASSESSMENT: 69-year-old male with a history of ESRD on hemodialysis, peripheral vascular disease, CAD, COPD, and type 1 diabetes mellitus who presents with one- day history of altered mental status which did not improve with hemodialysis, found to be hypertensive in the 210s/90s-100s and unable to answer questions or follow commands during examination. PLAN: 1. Altered mental status, possibly secondary to stroke, or change in medication. 1 day history of altered mental status. Patient does not appear to have any signs of infection, blood cultures 2 drawn and pending. -Pt did have neck pain the day before but no fever to suggest bacterial meningitis Ammonia levels, liver function tests, cardiac enzymes, TSH, and lactic acid levels were all WNL. Patient has known ESRD and has elevated creatinine and BUN, condition did not improve with dialysis today. Head CT negative for visit she acute intracranial hemorrhage, brain MRI and brain MRA pending. Could also possibly be related to a new medication tizanidine, which patient started taking yesterday for neck pain. -Neuro checks q4hrs -if no improved by tomorrow morning, consider neurology consult, LP, EEG 2. Hypertensive urgency. No current evidence of end organ damage Patient received 5 mg IV hydralazine on the ED without much change Continue home medications including hydralazine, clonidine, spironolactone. Continue to evaluate his increased dosing or new medications are necessary. 3. Diabetes mellitus type 1 with insulin. Return off insulin pump while inpatient. Sliding scale insulin, hypoglycemia protocol Consistent carbohydrate diet. 4. COPD Continue home inhalers 5. Nurse ESRD on hemodialysis. Nephrology consult, appreciate their input and recommendations. Hemodialysis per nephrology while inpatient 6. PVD and CAD Continue home medications including aspirin, atorvastatin, clopidogrel 7. Anemia: chronic disease, hx GI bleeding Continue current supplement, monitor CBC daily. 8. Spinal stenosis, lumbar. Continue baclofen, pain management while inpatient 9. Peripheral neuropathy. No home medication 10. Gout arthropathy. Continue home allopurinol. 11. Unspecified psychiatric history. Continue mirtazapine and citalopram DVT prophylaxis: Lovenox Disposition: Inpatient PCU pending clinical improvement, brain MRI pending I performed a history and physical examination of the patient and discussed their management with the above documenter. I reviewed the note and agree with the documented findings and plan of care. Vital Signs Vital Signs Date Time Temp Pulse Resp B/P (MAP) Pulse Ox O2 Delivery O2 Flow Rate FiO2 07/09/19 16:17 212/91 07/09/19 16:08 64 97 Room Air 07/09/19 15:06 97.0 12 Laboratory Data Labs 24H Laboratory Tests 2 07/09/19 15:26: Immature Granulocyte % (Auto) 0.8, Neutrophils (%) (Auto) 74.3H, Lymphocytes (%) (Auto) 11.0L, Monocytes (%) (Auto) 11.4H, Eosinophils (%) (Auto) 1.9, Basophils (%) (Auto) 0.6, Neutrophils # (Auto) 3.6, Lymphocytes # (Auto) 0.5L, Monocytes # (Auto) 0.6, Eosinophils # (Auto) 0.1, Basophils # (Auto) 0.0, Nucleated Red Blood Cells % (auto) 0.0, Blood Gas Bicarbonate Standard 29.4, Venous Blood pH 7.526H, Venous Blood Partial Pressure CO2 34.7L, Venous Blood Partial Pressure O2 80.4H, Venous Blood Total Carbon Dioxide 29.1H, Venous Blood HCO3 28.1H, Venous Blood Oxygen Saturation 96.8H, Venous Blood Base Excess 5.5H, Anion Gap 10, Glomerular Filtration Rate 17.3L, Osmolality 299, Lactic Acid Level 1.5, Calcium Level 9.0, Total Bilirubin 0.6, Direct Bilirubin < 0.1, Aspartate Amino Transf (AST/SGOT) 29, Alanine Aminotransferase (ALT/SGPT) 21, Alkaline Phosphatase 101, Ammonia 10, Total Creatine Kinase 106, Creatine Kinase MB 2.5, Creatine Kinase MB Relative Index 2.36, Troponin I < 0.02, Total Protein 7.0, Albumin 3.1L, Albumin/Globulin Ratio 0.79L, Thyroid Stimulating Hormone (TSH) 3.070, Salicylates Level < 1.7L, Acetaminophen Level < 2.0L, Ethyl Alcohol Level 0.003 07/09/19 15:36: POC pH (Misc Panel) 7.584H, POC Base Excess (Misc Panel) 10.0H, POC Saturated Percent O2 (Misc) 95, POC pO2 (Misc Panel) 65.0L, POC pCO2 (Misc Panel) 33.8L, POC HCO3 (Misc Panel) 32.0H, POC Total CO2 (Misc Panel) 33.0H 07/09/19 16:11: Bedside Glucose (Misc Panel) 183H CBC/BMP Laboratory Tests 07/09/19 15:26 Microbiology Microbiology 07/09/19 Blood Culture, Received Pending 07/09/19 Blood Culture, Received Pending Home Medications Scheduled Allopurinol (Allopurinol) 100 Mg Tablet, 100 MG PO DAILY Aspirin (Aspirin EC) 81 Mg Tab, 81 MG PO DAILY Atorvastatin Calcium (Atorvastatin Calcium) 80 Mg Tab, 80 MG PO QPM 1600 Calcitriol (Calcitriol) 0.25 Mcg Capsule, 0.25 MCG PO 4XWK MON, WED, FRI, SUN Calcium Carbonate (Calcium) 600 Mg Tab, 600 MG PO QPM 1600 Citalopram Hydrobromide (Citalopram HBr) 40 Mg Tab, 40 MG PO DAILY Clonidine Hcl (Clonidine HCl) 0.1 Mg Tablet, 0.1 MG PO TID SAT, SAT, SAT, SAT Clopidogrel Bisulfate (Clopidogrel) 75 Mg Tab, 75 MG PO DAILY Ergocalciferol (Vitamin D2) (Drisdol) 50,000 Unit Cap, 50,000 UNIT PO QWEEK WEDNESDAYS Ferrous Sulfate (Ferrous Sulfate) 325 Mg Tablet.dr, 325 MG PO DAILY Hydralazine HCl (Hydralazine HCl) 25 Mg Tablet, 25 MG PO TID Insulin Lispro (Humalog) 100 Unit/1 Ml Cartridge, 1 DOSE SC ASDIRECTED VIA INSULIN PUMP NOT TO EXCEED 100 UNITS Mirtazapine (Remeron) 15 Mg Tablet, 45 MG PO QPM @1600, TAKE 1 45MG TAB. Pantoprazole Sodium (Pantoprazole Sodium) 40 Mg Tab, 40 MG PO BID Spironolactone (Spironolactone) 25 Mg Tab, 25 MG PO BID Thiamine HCl (Thiamine HCl) 100 Mg Tablet, 100 MG PO DAILY Scheduled PRN Baclofen (Baclofen) 10 Mg Tablet, 10 MG PO TID PRN for MUSCLE SPASMS Dextrose (Glucose) 4 Gm Tab.chew, 4 GM PO for LOW BLOOD SUGAR Hydrocodone/Acetaminophen (Hydrocodone-Acetamin 5-325 mg) 1 Each Tablet, 1 TAB PO Q6H PRN for PAIN Ipratropium/Albuterol Sulfate (Combivent Respimat 20-100 Mcg) 4 Gm Mist.inhal, 2 PUFF INH Q4H PRN for SOB/WHEEZING Allergies Coded Allergies: Quinolones (Verified Allergy, Mild, RASH, 02/16/19) CHARLES Inhibitors (Verified Adverse Reaction, Intermediate, ARF, 02/16/19) NSAIDS (Non-Steroidal Anti-Inflamma (Verified Adverse Reaction, Intermediate, KIDNEY DAMAGE, 02/16/19) celecoxib (Verified Adverse Reaction, Intermediate, KIDNEY DAMAGE, 02/16/19) gabapentin (Verified Adverse Reaction, Intermediate, personality changes, 02/17/19) ibuprofen (Verified Adverse Reaction, Intermediate, KIDNEY DAMAGE, 02/16/19) lisinopril (Verified Adverse Reaction, Intermediate, RENAL FAILURE, 02/16/19) sulfamethoxazole (Verified Adverse Reaction, Intermediate, RENAL FAILURE, 02/16/19) trimethoprim (Verified Adverse Reaction, Intermediate, RENAL FAILURE, 02/16/19) cefazolin (Verified Adverse Reaction, Mild, DIZZINESS, 02/16/19) cyclobenzaprine (Verified Adverse Reaction, Mild, DIZZINESS, 02/16/19) hydrochlorothiazide (Verified Adverse Reaction, Mild, DIZZINESS, 02/16/19) triamterene (Verified Adverse Reaction, Mild, DIZZINESS, 02/16/19) A-FIB/CHADSVASC A-FIB History Current/History of A-Fib/PAF?: HOLLIS Whiting PGY-1 Jul 09, 2019 19:13 ROBERT SANTOS MD Jul 11, 2019 10:47
--- NOTE | 2019-07-09 19:17 | REPVR ---
PROCEDURE INFORMATION: Exam: MR Head Without Contrast Exam date and time: 07/09/2019 4:26 PM Clinical history: 69 years old, male; Altered mental status/memory loss; Confusion or disorientation TECHNIQUE: Imaging protocol: MR of the head without contrast. COMPARISON: MRI-Brain without Contrast 07/25/2018 8:[address] Head without contrast 07/09/2019 3:34:45 PM FINDINGS: Brain: No restricted diffusion is seen to suggest acute infarction. There is no acute intracranial hemorrhage, cerebral edema, or midline shift. Age-related cerebral and cerebellar substance loss is present. Mild increased T2 and FLAIR signal within the periventricular white matter is present. This is nonspecific but likely related to chronic microangiopathic ischemic change. A chronic lacunar infarct is noted within the left thalamus. Ventricles: Moderate ex vacuo dilation of the lateral and third ventricles is noted. Bones/joints: Unremarkable. Soft tissues: Unremarkable. Sinuses: Normal as visualized. No acute sinusitis. Mastoid air cells: Normal as visualized. No mastoid effusion. Orbits: The patient is likely status post bilateral cataract surgery. IMPRESSION: 1. No acute intracranial abnormality. 2. Chronic findings as discussed above. Electronically signed by: Iraj Haro On 07/09/2019 19:16:50 PM
--- NOTE | 2019-07-09 19:19 | REPVR ---
PROCEDURE INFORMATION: Exam: MR Angiogram Head Without Contrast, Arteries Exam date and time: 07/09/2019 4:26 PM Clinical history: 69 years old, male; Cognitive deficit; Altered mental status TECHNIQUE: Imaging protocol: MR angiogram head without contrast. Exam focused on the arteries. COMPARISON: MRA BRAIN W/O CONTRAST 07/25/2018 8:45 PM FINDINGS: Right internal carotid artery: There is mild atherosclerotic narrowing of the right cavernous carotid artery. Right anterior cerebral artery: Unremarkable. No occlusion or significant stenosis. No aneurysm. Right middle cerebral artery: Unremarkable. No occlusion or significant stenosis. No aneurysm. Right posterior cerebral artery: Unremarkable. No occlusion or significant stenosis. No aneurysm. Right vertebral artery: Unremarkable. No occlusion or significant stenosis. No aneurysm. Left internal carotid artery: There is moderate atherosclerotic narrowing involving the anterior turn of the left cavernous carotid artery. Left anterior cerebral artery: Unremarkable. No occlusion or significant stenosis. No aneurysm. Left middle cerebral artery: Unremarkable. No occlusion or significant stenosis. No aneurysm. Left posterior cerebral artery: Unremarkable. No occlusion or significant stenosis. No aneurysm. Left vertebral artery: Unremarkable. No occlusion or significant stenosis. No aneurysm. Basilar artery: Unremarkable. No occlusion or significant stenosis. No aneurysm. IMPRESSION: 1. No acute abnormality. 2. Chronic findings as discussed above. Electronically signed by: Iraj Haro On 07/09/2019 19:18:57 PM
[2019-07-09] MEDS: ATORVASTATIN 20 MG TAB PO SCH (19:28)
[2019-07-09] MEDS: MIRTAZAPINE 15 MG TAB PO SCH (19:29)
[2019-07-09] MEDS: HumaLOG INSULIN (NovoLOG) PER UNIT SC SCH (21:00)
[2019-07-09 21:13] VITALS: BP 210/82
--- NOTE | 2019-07-09 21:43 | ECGEPIP ---
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
[2019-07-09] MEDS: DOCUSATE SODIUM 100 MG CAP PO SCH (22:48)
[2019-07-09] MEDS: PANTOPRAZOLE 40MG TAB (PROTONIX) PO SCH (22:48)
[2019-07-09] MEDS: CitaloPRAM (CeleXA) 20 MG TAB PO SCH (22:48)
[2019-07-09] MEDS: SPIRONOLACTONE 25 MG TAB PO SCH (22:48)
[2019-07-09] MEDS: LEVEMIR (INSULIN DETEMIR) 1 UNITS/0.01ML SC SCH (22:48)
[2019-07-09 22:56] VITALS: BP 200/72
[2019-07-09] MEDS ORDERED: amLODIPine 10 MG TAB PO ONE (23:15)
--- NOTE | 2019-07-09 23:45 | REPVR ---
PROCEDURE INFORMATION: Exam: CT Head Without Contrast Exam date and time: 07/09/2019 11:09 PM Clinical history: 69 years old, male; Other: Pupils unequal; Additional info: Unequal pupils -pls call report nash TECHNIQUE: Imaging protocol: Computed tomography of the head without contrast. Radiation optimization: All CT scans at this facility use at least one of these dose optimization techniques: automated exposure control; mA and/or kV adjustment per patient size (includes targeted exams where dose is matched to clinical indication); or iterative reconstruction. Other technique: STROKE PROTOCOL was implemented. COMPARISON: CT Head without contrast 07/09/2019 3:34 PM FINDINGS: Brain: No intracranial mass, mass effect or midline shift. No acute intracranial hemorrhage. No CT evidence of acute cortical infarct. Ventricles: Ventricles, cisterns, and sulci are normal in size for age. Bones/joints: No calvarial fracture or destructive process. Sinuses: Imaged paranasal sinuses are clear. Mastoid air cells: Mastoid air cells are normally aerated. Orbits: Imaged orbits are unremarkable. Soft tissues: No focal extracranial soft tissue swelling. IMPRESSION: No acute or concerning focal intracranial abnormality. ASSESSMENT: ASPECTS ([place] Stroke Program Early CT Score) is 10 Electronically signed by: Claudy Hussein On 07/09/2019 23:45:46 PM
[2019-07-10] VITALS (8 sets, daily range): BP systolic 158–190; BP diastolic 62–82
[2019-07-10] MEDS: TRIAMCINOLONE ACET 0.1% OINTMENT 15 GM TOP SCH ×3 (00:50→20:23)
[2019-07-10 05:54] LABS: HEMATOCRIT 38.8 % (42.0-52.0); HEMOGLOBIN 13.4 g/dl (13.5-17.5); MEAN CORPUSCULAR HEMOGLOBIN 34.4 pg (27.0-33.0); MEAN CORPUSCULAR HGB CONC 34.5 g/dl (32.0-36.5); MEAN CORPUSCULAR VOLUME 99.5 fl (80.0-96.0); PLATELET COUNT, AUTOMATED 196 10^3/uL (150-450); WHITE BLOOD COUNT 4.8 10^3/uL (4.0-10.0)
[2019-07-10 06:30] LABS: ALBUMIN 2.7 GM/DL (3.2-5.2); BILIRUBIN,TOTAL 0.5 MG/DL (0.2-1.0); CALCIUM LEVEL 8.6 MG/DL (8.8-10.2); CREATININE FOR GFR 5.25 MG/DL (0.70-1.30); GLOMERULAR FILTRATION RATE 11.7 (>49); POTASSIUM SERUM 3.1 MEQ/L (3.5-5.1); TOTAL PROTEIN 6.6 GM/DL (6.4-8.2)
[2019-07-10] MEDS ORDERED: ENOXAPARIN 30 MG/0.3 ML SYR (J1650) SC SCH (09:00)
[2019-07-10] MEDS: HumaLOG INSULIN (NovoLOG) PER UNIT SC SCH ×4 (09:10→20:15)
[2019-07-10] MEDS: ASPIRIN 81 MG ENTERIC TAB PO SCH (09:11)
[2019-07-10] MEDS: CALCITRIOL 0.25 MCG CAP (S0169) PO SCH (09:12)
[2019-07-10] MEDS: cloNIDine 0.1 MG TAB PO SCH ×3 (09:12→20:22)
[2019-07-10] MEDS: THIAMINE 100 MG TAB PO SCH (09:12)
[2019-07-10] MEDS: ALLOPURINOL 100 MG TAB PO SCH (09:13)
[2019-07-10] MEDS: FERROUS SULFATE 325MG TAB PO SCH (09:13)
[2019-07-10] MEDS: **hydrALAZINE HCL** 25 MG TAB PO SCH ×3 (09:13→20:22)
[2019-07-10] MEDS: SPIRONOLACTONE 25 MG TAB PO SCH ×2 (09:13→20:22)
[2019-07-10] MEDS: PANTOPRAZOLE 40MG TAB (PROTONIX) PO SCH ×2 (09:13→20:22)
[2019-07-10] MEDS: DOCUSATE SODIUM 100 MG CAP PO SCH ×2 (09:15→20:21)
[2019-07-10] MEDS: CLOPIDOGREL 75 MG TAB PO SCH (09:15)
[2019-07-10] MEDS ORDERED: SLF 3 ML SYR IV PRN (11:45)
[2019-07-10] MEDS ORDERED: POTASSIUM CHLORIDE 10 MEQ SR TABLET PO ONE (12:30)
[2019-07-10] MEDS: SLF 3 ML SYR IV SCH ×2 (14:00→20:23)
[2019-07-10] MEDS ORDERED: E-Z-PAQUE 96% w/w SUSP 176GM BTL As Ordered ONE (15:03)
[2019-07-10] MEDS ORDERED: BARIUM SULFATE 700 MG TABLET (E-Z-DISK) As Ordered ONE (15:03)
[2019-07-10] MEDS ORDERED: VARIBAR NECTAR 40% w/v 240ML SUSP BTL As Ordered ONE (15:03)
[2019-07-10] MEDS ORDERED: VARIBAR PUDDING 40% w/v 230ML TUBE As Ordered ONE (15:03)
--- NOTE | 2019-07-10 15:54 | REP ---
COOKIE SWALLOW The procedure was performed under the direct supervision of Dr. Young. The procedure was performed with Francoise Jameson from speech pathology present. 5 ml aliquots of thin, pudding, mixed fruit and soft consistency barium was administered. There is no evidence of penetration or aspiration. The detailed report of this examination will be provided by speech pathology. 1.4 minutes of fluoroscopy time was utilized for this procedure. Electronically Signed by JULIÁN Verma 07/10/2019 03:44 P Electronically Signed by Juan Antonio Young MD 07/10/2019 03:45 P
--- NOTE | 2019-07-10 18:36 | IPNPDOC ---
Date Seen The patient was seen on 07/10/19. Progress Note SUBJECTIVE: Patient somewhat improved today from yesterday. He is somewhat more responsive but does not readily follow commands. He does not recognize his and does not respond when asked what his name is. Unable to perform neurologic exam. OBJECTIVE PHYSICAL EXAMINATION: VITAL SIGNS: See below GENERAL APPEARANCE: The patient is awake, lying in bed, but does not respond appropriately to questions and does not follow directions. Patient does state he has no or okay and responds to questions but these responses do not appear reliable. No respiratory distress. The patient does appear tense and anxious. HEENT: Pupils reactive but sluggish bilaterally, conjunctival erythema present bilaterally CARDIOVASCULAR: Regular rate and rhythm, normal S1, S2, no murmurs, rubs or gallops. LUNGS: Decreased lung sounds bilaterally throughout, no wheezing, rhonchi, or rales. Patient was was unable to follow directions to take deep breaths ABDOMEN: Soft, nondistended, bowel sounds present, no masses palpated. MUSCULOSKELETAL: Moves all 4 extremities spontaneously EXTREMITIES: 2+ pulses in bilateral radial arteries, unable to palpate pulses in dorsalis pedis or posterior tibial arteries NEUROLOGICAL: Unable to assess due to altered mental status PSYCHIATRIC: Unable to assess due to altered mental status LABORATORY DATA, IMAGING STUDIES, MICROBIOLOGY: Please see below. DVT prophylaxis ordered?: Patient is on Lovenox, but stopped temporarily for possible procedure tomorrow ASSESSMENT AND PLAN: This is a 69-year-old male with end-stage renal disease on dialysis who presents with altered mental status, found to be acutely encephalopathic. Etiology of encephalopathy unknown at this time. PROBLEMS: 1. Altered mental status, possibly secondary to stroke, or change in medication. Patient somewhat improved today. Answering questions intermittently, tracking, unfamiliar with his name and his 's name. It appears that the patient at baseline does have some slowed mentation, therefore, he may be closer to his baseline than previously thought. -Neurology consultation. Appreciate recommendations -EEG ordered -Possible LP, although patient's did not seem so she wanted to do this this afternoon. -If infectious etiology, most likely viral as bacterial, less likely due to lack of fevers, no white count 2. Hypertensive urgency. Patient's blood pressure is now 158/82. Will continue on current medication regimen. 3. Diabetes mellitus type 1 with insulin. Turn off insulin pump while inpatient. Sliding scale insulin, hypoglycemia protocol Consistent carbohydrate diet. 4. COPD Continue home inhalers 5. Nurse ESRD on hemodialysis. Nephrology consult, appreciate their input and recommendations. Hemodialysis per nephrology while inpatient, next HD tomorrow 6. PVD and CAD Continue home medications including aspirin, atorvastatin, clopidogrel 7. Anemia: chronic disease, hx GI bleeding Continue current supplement, monitor CBC daily. 8. Spinal stenosis, lumbar. Continue baclofen, pain management while inpatient 9. Peripheral neuropathy. No home medication 10. Gout arthropathy. Continue home allopurinol. 11. Unspecified psychiatric history. Continue mirtazapine and citalopram DVT prophylaxis: Lovenox FEN: Speech therapy recommends level to solids and regular thin liquids, staff assist with all meals and maximize intake, out of bed for all meals, dentures in insecure when spouse brings them in Disposition: Inpatient PCU pending clinical improvement VS, I&O, 24H, Fishbone Vital Signs/I&O Vital Signs Date Time Temp Pulse Resp B/P (MAP) Pulse Ox O2 Delivery O2 Flow Rate FiO2 07/10/19 16:14 190/83 07/10/19 16:00 98.6 64 17 96 Room Air I&O- Last 24 Hours up to 6 AM 07/10/19 06:00 Intake Total 0 ml Output Total 0 ml Balance 0 ml Laboratory Data 24H LABS Laboratory Tests 2 07/09/19 21:58: Bedside Glucose (Misc Panel) 172H 07/10/19 04:11: Bedside Glucose (Misc Panel) 115 07/10/19 05:29: Nucleated Red Blood Cells % (auto) 0.0, Anion Gap 7L, Glomerular Filtration Rate 11.7L, Calcium Level 8.6L, Total Bilirubin 0.5, Aspartate Amino Transf (AST/SGOT) 19, Alanine Aminotransferase (ALT/SGPT) 17, Alkaline Phosphatase 87, Total Protein 6.6, Albumin 2.7L, Albumin/Globulin Ratio 0.69L 07/10/19 13:08: Bedside Glucose (Misc Panel) 185H 07/10/19 17:49: Bedside Glucose (Misc Panel) 185H CBC/BMP Laboratory Tests 07/10/19 05:29 Microbiology Microbiology 07/10/19 Respiratory Virus Panel (PCR) (ADOLFO) - Final, Complete 07/09/19 Blood Culture - Preliminary, Resulted No growth after 24 hours . All specim... 07/09/19 Blood Culture - Preliminary, Resulted No growth after 24 hours . All specim... GME ATTESTATION GME ATTESTATION I saw and evaluated the patient. I agree with the findings and plan of care as documented in the above note NELY MERAZ MD Jul 10, 2019 18:36 ROBERT SANTOS MD Jul 11, 2019 10:56
[2019-07-10] MEDS: MIRTAZAPINE 15 MG TAB PO SCH (18:43)
[2019-07-10] MEDS: ATORVASTATIN 20 MG TAB PO SCH (18:43)
[2019-07-10] MEDS: CitaloPRAM (CeleXA) 20 MG TAB PO SCH (20:21)
[2019-07-10] MEDS: LEVEMIR (INSULIN DETEMIR) 1 UNITS/0.01ML SC SCH (20:23)
[2019-07-11] VITALS (13 sets, daily range): BP systolic 144–196; BP diastolic 68–87; O2SAT 93–94
[2019-07-11] MEDS ORDERED: hydrALAZINE INJ 20 MG/ML VIAL IV ONE (00:45)
[2019-07-11] MEDS: SLF 3 ML SYR IV SCH ×3 (05:09→22:00)
[2019-07-11 05:48] LABS: HEMATOCRIT 39.9 % (42.0-52.0); HEMOGLOBIN 13.3 g/dl (13.5-17.5); MEAN CORPUSCULAR HEMOGLOBIN 34.2 pg (27.0-33.0); MEAN CORPUSCULAR HGB CONC 33.3 g/dl (32.0-36.5); MEAN CORPUSCULAR VOLUME 102.6 fl (80.0-96.0); PLATELET COUNT, AUTOMATED 188 10^3/uL (150-450); RED BLOOD COUNT 3.89 10^6/uL (4.30-6.10); WHITE BLOOD COUNT 4.8 10^3/uL (4.0-10.0)
[2019-07-11] MEDS: ASPIRIN 81 MG ENTERIC TAB PO SCH (05:53)
[2019-07-11 06:15] LABS: ALBUMIN 2.6 GM/DL (3.2-5.2); BILIRUBIN,TOTAL 0.4 MG/DL (0.2-1.0); CALCIUM LEVEL 8.3 MG/DL (8.8-10.2); CREATININE FOR GFR 7.16 MG/DL (0.70-1.30); GLOMERULAR FILTRATION RATE 8.2 (>49); POTASSIUM SERUM 3.7 MEQ/L (3.5-5.1); TOTAL PROTEIN 6.5 GM/DL (6.4-8.2)
[2019-07-11] MEDS: FERROUS SULFATE 325MG TAB PO SCH (08:13)
[2019-07-11] MEDS: DOCUSATE SODIUM 100 MG CAP PO SCH ×2 (08:13→20:23)
[2019-07-11] MEDS: SPIRONOLACTONE 25 MG TAB PO SCH ×2 (08:14→20:23)
[2019-07-11] MEDS: THIAMINE 100 MG TAB PO SCH (08:14)
[2019-07-11] MEDS: ALLOPURINOL 100 MG TAB PO SCH (08:14)
[2019-07-11] MEDS: amLODIPine 10 MG TAB PO SCH ×2 (08:14→09:00)
[2019-07-11] MEDS: CLOPIDOGREL 75 MG TAB PO SCH (08:14)
[2019-07-11] MEDS: **hydrALAZINE HCL** 25 MG TAB PO SCH ×3 (08:14→20:24)
[2019-07-11] MEDS: PANTOPRAZOLE 40MG TAB (PROTONIX) PO SCH ×2 (08:15→20:23)
[2019-07-11] MEDS: TRIAMCINOLONE ACET 0.1% OINTMENT 15 GM TOP SCH ×2 (08:15→20:23)
[2019-07-11] MEDS: HumaLOG INSULIN (NovoLOG) PER UNIT SC SCH ×4 (08:16→20:24)
--- NOTE | 2019-07-11 10:56 | IPNPDOC ---
Date Seen The patient was seen on 07/11/19. Progress Note SUBJECTIVE: Patient still has delayed responses to questions, is not always following commands, still appears confused and is somewhat nonverbal. Somewhat worse than yesterday. He underwent speech evaluation and cookie swallow and was found to need level to solids and regular thin liquids. He will go to HD today. OBJECTIVE PHYSICAL EXAMINATION: VITAL SIGNS: See below GENERAL APPEARANCE: The patient is awake, lying in bed, but does not respond appropriately to questions and does not follow directions. Patient does state he has no or okay and responds to questions but these responses do not appear reliable. No respiratory distress. The patient does appear tense and anxious. HEENT: Pupils reactive but sluggish bilaterally, conjunctival erythema present bilaterally CARDIOVASCULAR: Regular rate and rhythm, normal S1, S2, no murmurs, rubs or gallops. LUNGS: Decreased lung sounds bilaterally throughout, no wheezing, rhonchi, or rales. Patient was was unable to follow directions to take deep breaths ABDOMEN: Soft, nondistended, bowel sounds present, no masses palpated. MUSCULOSKELETAL: Moves all 4 extremities spontaneously EXTREMITIES: 2+ pulses in bilateral radial arteries, unable to palpate pulses in dorsalis pedis or posterior tibial arteries NEUROLOGICAL: Unable to assess due to altered mental status PSYCHIATRIC: Unable to assess due to altered mental status LABORATORY DATA, IMAGING STUDIES, MICROBIOLOGY: Please see below. DVT prophylaxis ordered?: Patient is on Lovenox, but stopped temporarily for possible procedure tomorrow ASSESSMENT AND PLAN: This is a 69-year-old male with end-stage renal disease on dialysis who presents with altered mental status, found to be acutely encephalopathic. Etiology of encephalopathy unknown at this time. PROBLEMS: 1. Altered mental status, possibly secondary to stroke, or change in medication. Mental state, somewhat the same today as it was yesterday. Still not answering questions appropriately and minimally responsive. He does seem somewhat more alert. -Neurology consultation. Appreciate recommendations -EEG ordered -LP was considered, although family does not wish him to undergo procedures at this time. Low suspicion for infectious process 2. Hypertensive urgency. The patient's home dose of amlodipine 10 mg was restarted, as his blood pressure began to increase overnight 3. Diabetes mellitus type 1 with insulin. Turn off insulin pump while inpatient. Sliding scale insulin, hypoglycemia protocol Consistent carbohydrate diet. 4. COPD Continue home inhalers 5. Nurse ESRD on hemodialysis. Nephrology consult, appreciate their input and recommendations. Hemodialysis per nephrology while inpatient, patient will do HD today 6. PVD and CAD Continue home medications including aspirin, atorvastatin, clopidogrel 7. Anemia: chronic disease, hx GI bleeding Continue current supplement, monitor CBC daily. 8. Spinal stenosis, lumbar. Continue baclofen, pain management while inpatient 9. Peripheral neuropathy. No home medication 10. Gout arthropathy. Continue home allopurinol. 11. Unspecified psychiatric history. Continue mirtazapine and citalopram DVT prophylaxis: Lovenox Disposition: Inpatient PCU pending clinical improvement VS, I&O, 24H, Fishbone Vital Signs/I&O Vital Signs Date Time Temp Pulse Resp B/P (MAP) Pulse Ox O2 Delivery O2 Flow Rate FiO2 07/11/19 08:14 67 188/80 07/11/19 08:00 98.6 18 96 Room Air I&O- Last 24 Hours up to 6 AM 07/11/19 06:00 Intake Total 270 ml Balance 270 ml Laboratory Data 24H LABS Laboratory Tests 2 07/10/19 13:08: Bedside Glucose (Misc Panel) 185H 07/10/19 17:49: Bedside Glucose (Misc Panel) 185H 07/10/19 19:48: Bedside Glucose (Misc Panel) 234H 07/11/19 05:34: Nucleated Red Blood Cells % (auto) 0.0, Anion Gap 10, Glomerular Filtration Rate 8.2L, Calcium Level 8.3L, Total Bilirubin 0.4, Aspartate Amino Transf (AST/SGOT) 16, Alanine Aminotransferase (ALT/SGPT) 15, Alkaline Phosphatase 83, Total Protein 6.5, Albumin 2.6L, Albumin/Globulin Ratio 0.67L CBC/BMP Laboratory Tests 07/11/19 05:34 Microbiology Microbiology 07/10/19 Respiratory Virus Panel (PCR) ([facility]) - Final, Complete 07/09/19 Blood Culture - Preliminary, Resulted No growth after 24 hours . All specim... 07/09/19 Blood Culture - Preliminary, Resulted No growth after 24 hours . All specim... GME ATTESTATION GME ATTESTATION I saw and evaluated the patient. I agree with the findings and plan of care as documented in the above note NELY MERAZ MD Jul 11, 2019 10:56 ROBERT SANTOS MD Jul 11, 2019 10:58
--- NOTE | 2019-07-11 11:27 | CR ---
DATE OF CONSULTATION: 07/10/2019 REFERRING PHYSICIAN: Dr. George Davila REASON FOR CONSULTATION: Altered mental status. HISTORY OF PRESENT ILLNESS: Jonh Norwood is a 69-year-old man who was seen in the emergency department for neck pain 2 days ago and was given a dose of tizanidine. He went for dialysis the next day and appeared to have altered mental status. His noted and staff at dialysis unit noted that they were unable to obtain any history from the patient. He was not answering questions reliably. The patient's had noted mild changes in his mentation the night before but she was not concerned about it. The patient was unable to finish dialysis and was sent to [facility] Emergency Department where he was admitted. The patient is still not answering questions. He is almost nonverbal. He is awake, alert, looks at the person and says yes or no to the answers; at times his yes and no do not make sense. For example, when nurse at bedside asked him if he was in pain he said no, and when she asked him name of his he still said no. He appears comfortable. He moves all four extremities equally well. It is impossible to know whether he has pain anywhere, including headaches, neck or back pain. He is sitting and laying in the bed listless and almost nonverbal, but is awake and alert. He looks around meaningfully at people. There are no reports of falls or head injuries. PAST MEDICAL HISTORY: Chronic obstructive pulmonary disease (COPD), hypertension, diabetes, peripheral arterial disease, lumbar spinal stenosis, coronary artery disease, end-stage renal disease on hemodialysis, anemia of chronic disease, peripheral neuropathy, gout, arthritis, dyslipidemia, history of gastrointestinal (GI) bleed, bilateral mandibular gland excision, multiple angioplasties of leg, right femoral and popliteal bypass with right 2nd toe amputation, right iliofemoral bypass graft, cataract surgery, left femoral and popliteal bypass graft, arteriovenous (AV) fistula, endoscopies, and colonoscopies. SOCIAL HISTORY: The patient is disabled. He smoked 40-50 pack years and quit many years ago. No reports of alcohol intake. No illicit drugs. FAMILY HISTORY: Could not be obtained. REVIEW OF SYSTEMS: Could not be obtained. HOME MEDICATIONS: - aspirin 81 mg by mouth daily - allopurinol 100 mg by mouth daily - Lipitor 80 mg by mouth daily - calcitriol 0.25 mcg by mouth four times a week - calcium carbonate 600 mg by mouth daily - Celexa 40 mg by mouth daily - clonidine 0.1 mg by mouth three times a day - Plavix 75 mg by mouth daily - hydralazine 25 mg by mouth three times a day - insulin Humalog every insulin pump - Remeron 15 mg, 3 tablets by mouth nightly - Protonix 40 mg by mouth twice a day - spironolactone 25 mg by mouth twice a day - thiamine 100 mg by mouth daily - baclofen 10 mg by mouth three times a day as needed - Vicodin 5/325 mg by mouth every 6 hours as needed - Combivent inhaler ALLERGIES: QUINOLONE, CHARLES INHIBITORS, NSAIDS, CELEBREX, GABAPENTIN, IBUPROFEN, LISINOPRIL, BACTRIM, CEFAZOLIN, HYDROCHLOROTHIAZIDE, TRIAMTERENE. PHYSICAL EXAMINATION: Temperature 98.4, pulse 65, respiratory rate 17, blood pressure 158/82, 97% saturation on room air. Heart regular rate and rhythm. Lungs clear to auscultation. Abdomen soft, nontender, nondistended. No pedal edema. No musculoskeletal abnormalities. No rash. No signs of meningeal irritation. The patient is awake, alert and almost nonverbal. He answers questions occasionally with yes and no, and yes and no do not seem completely reliable either. He is sitting there listless and is unable to follow even one-step commands. He looks around meaningfully and may have understanding of the situation but does not speak or follow commands. He moves all four extremities equally well. Extraocular muscles are intact. There is no nystagmus. No facial weakness. Memory, cerebellar and sensory testing could not be performed. Gait could not be tested. DIAGNOSTIC STUDIES: MRI and MRA brain are unremarkable, and they were reviewed, except mild atherosclerosis of internal carotid arteries. CT scan of head is normal twice. His ammonia level is 10, TSH is 3.07, GFR is 11.7 with creatinine 5.25, hemoglobin 13.4. ASSESSMENT: 1. Altered mental status due to unclear etiology. 2. Encephalopathy likely multifactorial. PLAN: 1. Avoid all sedatives, including baclofen, tizanidine, Vicodin, etc. 2. Electroencephalogram (EEG) which I recommended yesterday but was not done. 3. My index of suspicion for encephalitis is low. Spinal tap can be considered to exclude this possibility.
[2019-07-11] MEDS ORDERED: LIDOCAINE 1% SDV 5 ML VIAL SQ ONE (12:00)
--- NOTE | 2019-07-11 14:13 | IPNPDOC ---
Text Note Date of Service The patient was seen on 07/11/19. NOTE Nephrology progress note SUBJECTIVE: Patient examined at bedside this morning. Nursing staff reports no acute events overnight. Patient remains confused is and unable to appropriately answer any questions. OBJECTIVE: PHYSICAL EXAM: Vitals: (see below) General: No acute distress, laying comfortably in bed. HEENT: Normocephalic, atraumatic. EOMI. No scleral icterus. Moist mucous membranes. No pharyngeal erythema or uvular deviation. Neck: No JVD, lymphadenopathy, or thyromegaly. Cardiac: RRR, Normal S1 and S2, No murmurs, gallops, rubs. Pulm: Clear to auscultation b/l. Symmetric thorax. No wheezing, crackles, rhonchi Abd: Abdomen is soft, non-tender, non-distended. Ext: No edema or cyanosis Neuro: A&O0 LABORATORY DATA, MICROBIOLOGY: Please see below. ASSESSMENT AND PLAN: #. Altered mental status Thought to be due to patient's recent episode of hypertension inducing a hypertensive encephalopathy. We suspect that because of his history of peripheral vascular disease and hypertension he will take some time to recover. #. Asymptomatic severe hypertension Patient's blood pressure is improving on Norvasc, spironolactone, catapres, and hydralazine. #. ESRD on HD Patient is on his regular dialysis schedule, Sat. He will have HD today. VS,Fishbone, I+O VS, Fishbone, I+O Laboratory Tests 07/11/19 05:34 Vital Signs Date Time Temp Pulse Resp B/P (MAP) Pulse Ox O2 Delivery O2 Flow Rate FiO2 07/11/19 13:07 98.5 78 16 152/72 (98) 100 Room Air I&O- Last 24 Hours up to 6 AM 07/11/19 06:00 Intake Total 270 ml Balance 270 ml GME ATTESTATION GME ATTESTATION My faculty preceptor for this patient encounter was physically present during the encounter and was fully available. All aspects of the patient interview, e xamination, medical decision making process, and medical care plan development were reviewed and approved by the faculty preceptor. The faculty preceptor is aware and concurs with the plan as stated in the body of this note and will attest to such by his/her cosignature. ATTENDING NOTE Nephrology Attending Note: Pt was seen and examined during HD today. He is tolerating HD. Denies any active complaints and more awake today. Assessment Encephalopathy ESRD on HD HTN with ESRD Plan: UF Goal about 2Kg as tolerated. Cont current BP meds. BP improving with improvement of volume status. Neurological status improving back to his baseline. Slow to answer questions. ETHAN MCKEE DO Jul 11, 2019 14:13 JUAN MARTINEZ MD Jul 11, 2019 18:57
[2019-07-11] MEDS: ATORVASTATIN 20 MG TAB PO SCH (17:55)
[2019-07-11] MEDS: MIRTAZAPINE 15 MG TAB PO SCH (17:55)
[2019-07-11] MEDS: CitaloPRAM (CeleXA) 20 MG TAB PO SCH (20:23)
[2019-07-11] MEDS: LEVEMIR (INSULIN DETEMIR) 1 UNITS/0.01ML SC SCH (20:24)
[2019-07-12] VITALS (15 sets, daily range): BP systolic 168–202; BP diastolic 58–80; O2SAT 94–97
[2019-07-12] MEDS ORDERED: hydrALAZINE INJ 20 MG/ML VIAL IV STA (04:02)
[2019-07-12 05:22] LABS: HEMATOCRIT 43.8 % (42.0-52.0); HEMOGLOBIN 14.5 g/dl (13.5-17.5); MEAN CORPUSCULAR HGB CONC 33.1 g/dl (32.0-36.5); MEAN CORPUSCULAR VOLUME 102.6 fl (80.0-96.0); PLATELET COUNT, AUTOMATED 213 10^3/uL (150-450); RED BLOOD COUNT 4.27 10^6/uL (4.30-6.10); WHITE BLOOD COUNT 5.4 10^3/uL (4.0-10.0)
[2019-07-12 05:56] LABS: ALBUMIN 2.9 GM/DL (3.2-5.2); BILIRUBIN,TOTAL 0.7 MG/DL (0.2-1.0); CREATININE FOR GFR 6.15 MG/DL (0.70-1.30); GLOMERULAR FILTRATION RATE 9.7 (>49); POTASSIUM SERUM 3.8 MEQ/L (3.5-5.1); TOTAL PROTEIN 6.9 GM/DL (6.4-8.2)
[2019-07-12] MEDS: SLF 3 ML SYR IV SCH ×3 (06:15→21:12)
[2019-07-12] MEDS ORDERED: CHLORTHALIDONE 25 MG TAB PO ONE (06:30)
[2019-07-12] MEDS: amLODIPine 10 MG TAB PO SCH (06:43)
[2019-07-12] MEDS: CLOPIDOGREL 75 MG TAB PO SCH (08:44)
[2019-07-12] MEDS: FERROUS SULFATE 325MG TAB PO SCH (08:44)
[2019-07-12] MEDS: SPIRONOLACTONE 25 MG TAB PO SCH ×2 (08:44→20:23)
[2019-07-12] MEDS: ALLOPURINOL 100 MG TAB PO SCH (08:44)
[2019-07-12] MEDS: ASPIRIN 81 MG ENTERIC TAB PO SCH (08:44)
[2019-07-12] MEDS: DOCUSATE SODIUM 100 MG CAP PO SCH ×2 (08:44→20:23)
[2019-07-12] MEDS: THIAMINE 100 MG TAB PO SCH (08:44)
[2019-07-12] MEDS: **hydrALAZINE HCL** 25 MG TAB PO SCH ×3 (08:45→20:24)
[2019-07-12] MEDS: cloNIDine 0.1 MG TAB PO SCH ×3 (08:45→20:24)
[2019-07-12] MEDS: PANTOPRAZOLE 40MG TAB (PROTONIX) PO SCH ×2 (08:45→20:23)
[2019-07-12] MEDS: CALCITRIOL 0.25 MCG CAP (S0169) PO SCH (08:45)
[2019-07-12] MEDS: TRIAMCINOLONE ACET 0.1% OINTMENT 15 GM TOP SCH ×2 (08:46→20:24)
[2019-07-12] MEDS: HumaLOG INSULIN (NovoLOG) PER UNIT SC SCH ×4 (08:46→21:00)
--- NOTE | 2019-07-12 11:00 | IPNPDOC ---
Date Seen The patient was seen on 07/12/19. Progress Note SUBJECTIVE:Patient this a.m. is awake alert and oriented he can tell me the year months the president that he is in the hospital and that his blood pressure was very high about his reason why he was brought to the hospital. He also tells me he wants to get the hell out of here and leave AGAINST MEDICAL ADVICE. I did spend a great deal of time explained to him how his last several days have been in that we still need to optimize his blood pressure and like him work with physical therapy prior to any disposition plan he is mildly receptive to these suggestions at this time but demonstrates good understanding. OBJECTIVE PHYSICAL EXAMINATION: VITAL SIGNS: See below GENERAL APPEARANCE: The patient is awake, lying in bed, and does respond appropriately today as well as follow directions appears comfortable in no acute distress HEENT: Pupils reactive cranial nerves grossly intact tongue is midline CARDIOVASCULAR: Regular rate and rhythm, normal S1, S2, no murmurs, rubs or gallops. LUNGS: Decreased lung sounds bilaterally throughout, no wheezing, rhonchi, or rales. ABDOMEN: Soft, nondistended, bowel sounds present, no masses palpated. MUSCULOSKELETAL: Moves all 4 extremities spontaneously EXTREMITIES: 2+ pulses in bilateral radial arteries, unable to palpate pulses in dorsalis pedis or posterior tibial arteries NEUROLOGICAL: No focal deficits PSYCHIATRIC: Flat but not inappropriate LABORATORY DATA, IMAGING STUDIES, MICROBIOLOGY: Please see below. DVT prophylaxis ordered?: Patient is on Lovenox, but stopped temporarily for possible procedure tomorrow ASSESSMENT AND PLAN: This is a 69-year-old male with end-stage renal disease on dialysis who presents with hypertensive encephalopathy PROBLEMS: 1. Hypertensive encephalopathy: As his blood pressure has improved gradually so as his mental status. There was also question that tizanidine may have played a role. At this time he appears to be approaching his baseline blood pressure still unacceptably elevated and I would like him to work with PT OT. He is at high risk for signing out AGAINST MEDICAL ADVICE I did have a lengthy conversation with him and I spoke with nephrology as well. He is on clonidine only on dialysis days and during his dialysis status appears to be even more so hypertensive like to state admission. I did concern for rebound hypertension with clonidine he is oriented Norvasc and hydrochlorothiazide added to his regimen. We'll continue to monitor closely as we attempt to optimize his medications 2. Hypertensive urgency: As outlined above 3. Diabetes mellitus type 1 with insulin. Sliding scale insulin, hypoglycemia protocol Consistent carbohydrate diet. Resume insulin pump upon discharge 4. COPD Continue home inhalers he is at his baseline respiratory status 5. ESRD on hemodialysis. Nephrology consult, appreciate their input and recommendations. Hemodialysis per nephrology while inpatient 6. PVD and CAD Continue home medications including aspirin, atorvastatin, clopidogrel 7. Anemia: chronic disease, hx GI bleeding Continue current supplement, monitor CBC daily. 8. Spinal stenosis, lumbar. Continue baclofen, pain management while inpatient 9. Peripheral neuropathy. No home medication 10. Gout arthropathy. Continue home allopurinol. 11. Unspecified psychiatric history. Continue mirtazapine and citalopram DVT prophylaxis: Lovenox Disposition: Pending PT and DP optimization VS, I&O, 24H, Fishbone Vital Signs/I&O Vital Signs Date Time Temp Pulse Resp B/P (MAP) Pulse Ox O2 Delivery O2 Flow Rate FiO2 07/12/19 08:45 188/80 07/12/19 08:00 98.9 88 16 95 Room Air I&O- Last 24 Hours up to 6 AM 07/12/19 06:00 Intake Total 120 ml Output Total 1000 ml Balance -880 ml Laboratory Data 24H LABS Laboratory Tests 2 07/11/19 13:10: Bedside Glucose (Misc Panel) 98 07/11/19 17:06: Bedside Glucose (Misc Panel) 154H 07/11/19 20:08: Bedside Glucose (Misc Panel) 168H 07/12/19 05:10: Nucleated Red Blood Cells % (auto) 0.0, Anion Gap 11, Glomerular Filtration Rate 9.7L, Calcium Level 9.0, Total Bilirubin 0.7#, Aspartate Amino Transf (AST/SGOT) 16, Alanine Aminotransferase (ALT/SGPT) 15, Alkaline Phosphatase 89, Total Protein 6.9, Albumin 2.9L, Albumin/Globulin Ratio 0.73L CBC/BMP Laboratory Tests 07/12/19 05:10 Microbiology Microbiology 07/10/19 Respiratory Virus Panel (PCR) ([facility]) - Final, Complete 07/09/19 Blood Culture - Preliminary, Resulted No Growth after 48 hours. All Specime... 07/09/19 Blood Culture - Preliminary, Resulted No Growth after 48 hours. All Specime... ROBERT SANTOS MD Jul 12, 2019 11:00
--- NOTE | 2019-07-12 16:39 | IPN ---
DATE: 07/12/2019 SUBJECTIVE: The patient was seen and examined at the bedside today morning. He was dialyzed yesterday. He tolerated the hemodialysis procedure well, 1 liter of fluid was removed. His blood pressures are better today as compared with yesterday. He is much more awake and alert and he actually wants to go home today and reports that if he is not discharged, he will sign out against medical advice. OBJECTIVE: Vital signs: Temperature is 98.9 degrees Fahrenheit, blood pressure 188/80, pulse is 88, respiratory rate of 16, saturating 95% on room air. Intake and output: Fluid removal with dialysis was 1 liter. Urine output is 200 mL since overnight. Weight in the bed scale is 66.6 kg. PHYSICAL EXAMINATION: General: The patient is awake, alert, oriented times two, sitting up in the bed in no apparent distress. Head and neck exam: Extraocular muscles intact. Pupils equally round and reactive to light. Mucous membranes are moist. Neck is supple. There is no JVD. Cardiovascular: S1, S2, regular rate. No edema of the bilateral lower extremities. Respiratory: Chest is clear to auscultation bilaterally. Bilateral equal air entry. No rales or rhonchi. Abdomen: Soft, positive bowel sounds. Nontender. No organomegaly. Musculoskeletal: No clubbing or cyanosis. No edema of the lower extremities. He has a right forearm AV fistula with thrill and bruit. VAMP LINER: He is oriented times two. He follows commands and moves extremities. He is slow to respond to questions. LABORATORY REVIEW: CBC showed WBC 5.4, hemoglobin 14.5, platelets are 213. BMP showed sodium 138, potassium 3.8, chloride 100, bicarbonate 27, BUN 35, creatinine is 6.1, calcium is 9, albumin 2.9. CURRENT INPATIENT MEDICATIONS: The patient's medications were all reviewed by myself. He was given hydralazine 10 mg IV times one dose overnight. No other change in the medications today as compared with yesterday. ASSESSMENT/PLAN: 1. End-stage renal disease on hemodialysis. The patient's regular dialysis days are Saturday, , Saturday. He was dialyzed yesterday according to his regular schedule. Next hemodialysis will be on Saturday as per his regular schedule. No urgent need of further hemodialysis. 2. Hypertensive urgency. The patient's blood pressures are still elevated. He gets clonidine on non dialysis days only. He was already given clonidine. Continue current dose of amlodipine 10 mg by mouth daily. Continue spironolactone 25 mg by mouth twice a day as well. 3. Hypertensive encephalopathy. The patient is coming back to his baseline mental status. However, blood pressures are still high. His blood pressure needs to be further optimized before he can go home.
[2019-07-12] MEDS: ATORVASTATIN 20 MG TAB PO SCH (16:54)
[2019-07-12] MEDS: MIRTAZAPINE 15 MG TAB PO SCH (16:54)
[2019-07-12] MEDS: HumaLOG INSULIN (NovoLOG) PER UNIT SC STA ×2 (16:55→17:05)
[2019-07-12] MEDS ORDERED: HumaLOG INSULIN (NovoLOG) PER UNIT SC STA ×2 (16:59→18:23)
--- NOTE | 2019-07-12 18:47 | CR ---
DATE OF CONSULTATION: 07/10/2019 REASON FOR CONSULTATION: To assist in the management of end-stage renal disease. HISTORY OF PRESENT ILLNESS: Mr. Norwood is a 69-year-old gentleman with known history of type 1 diabetes, hypertension, end-stage renal disease, chronic obstructive pulmonary disease (COPD), recurrent gastrointestinal (GI) bleed with possible arteriovenous (AV) malformations requiring frequent transfusions, history of coronary artery disease and peripheral vascular disease. He presented to hemodialysis room on 07/09/2019 for routine dialysis treatment and was found to be very confused and disoriented. Patient's accompanied him and she reported that he went to the emergency room in the evening of 07/08/2019 due to neck pain and was given a dose of tizanidine and sent home. He did take only one dose of tizanidine. Since last evening, he has been quite confused and was concerned. I was called to see him in the dialysis unit. Patient was totally disoriented and unable to answer any questions appropriately. His blood pressure was somewhat high and he was still able to complete his dialysis treatment and then sent to the emergency room. In the emergency room, CT scan of head was done, which did not show any acute infarction or bleeding. Patient was admitted due to altered mentation. Nephrology consultation requested due to need for hemodialysis. Patient is seen this morning. PAST MEDICAL HISTORY: Significant for: 1. Longstanding type 1 diabetes on insulin pump. 2. Hypertension. 3. Peripheral vascular disease. 4. Chronic obstructive pulmonary disease (COPD). 5. Coronary artery disease. 6. End-stage renal disease. 7. Spinal stenosis. 8. History of recurrent GI bleed. 9. History of anemia of acute blood loss due to arteriovenous (AV) malformations. 10. History of gout. 11. Hyperlipidemia. PAST SURGICAL HISTORY: Significant for: 1. Right and left submandibular gland excision. 2. Multiple angioplasties of lower extremities. 3. Right femoral popliteal bypass with right second toe amputation. 4. Right iliofemoral bypass graft. 5. Bilateral cataract removal. 7. Left forearm AV fistula. 8. Multiple colonoscopies and upper endoscopies for recurrent GI bleed. PERSONAL AND SOCIAL HISTORY: Patient is and lives with his . He quit smoking about 10 years ago. No history of alcohol or drug use. FAMILY HISTORY: Noncontributory. REVIEW OF SYSTEMS: At present, the patient is quite confused and not able to provide any information. I did have a chance to talk to his yesterday and she reported no fever or chills and no other problems other than neck pain, for which he took tizanidine and was seen in the emergency room. MEDICATIONS: His home medications include: - allopurinol 100 mg daily - aspirin 81 mg daily - atorvastatin 80 mg daily - calcitriol 0.25 mcg four times a week - calcium carbonate 600 mg daily - citalopram ER 40 mg daily - clonidine 0.1 mg - Plavix 75 mg daily - vitamin D 50,000 units once a week - ferrous sulfate 325 mg daily - hydralazine 25 mg three times a day - pantoprazole 40 mg daily - spironolactone 25 mg twice a day - thiamine 100 mg daily - mirtazapine 15 mg at bedtime - baclofen 10 mg as needed for muscle spasm - hydrocodone 5/325 mg as needed for pain - Combivent inhaler as needed for dyspnea. ALLERGIES: Patient has multiple drug allergies which are recorded in his EMR. PHYSICAL EXAMINATION: Temperature 98.4 degrees Fahrenheit, heart rate 70 per minute and respiratory rate 18 per minute. Blood pressure 168/70 mmHg and oxygen saturation 96%. Yesterday his blood pressure was in the range of 216/90 mmHg and has now improved. Patient remains still quite confused and disoriented. His oxygen saturation is 96% on room air. Patient has a dressing on the right forehead with minimal dried blood on the scab. Neck is supple and jugular venous distention (JVD) is mildly elevated. Pupils are equal and small. Heart sounds are regular. Lungs have slightly diminished breath sounds at bases, but no wheezing or rales. Abdomen soft and nontender and bowel sounds are normal. Extremities without any cyanosis or clubbing. Skin has no rash or ulcers. Neurologically, he is quite confused and disoriented, but moving all four limbs. LABORATORY DATA: His labs show WBC count 4.8, hemoglobin 13.4 and hematocrit 38.8. Platelets 196. On admission, his sodium was 141 and potassium 3.6. BUN 20 and creatinine 3.73. Today's sodium is 142, potassium 3.1, BUN 31 and creatinine 5.25. Glucose 122 and calcium 8.6. A lactic acid level was 1.5. Salicylate level was less than 1.7 and acetaminophen (cut off) A venous blood gas showed a pH of 7.52, pCO2 34.7 and pO2 80.4. PROBLEMS: 1. End-stage renal disease. Patient did complete his dialysis treatment on 07/09/2019. He is regularly dialyzed on Saturday, and Saturday schedule. At this point, I do not see any emergent need for dialysis and we will plan on dialyzing him tomorrow. 2. Altered mentation. Probably related to hypertensive urgency. He did have quite high blood pressure on admission. We are also concerned about toxic encephalopathy. At this point, he is not on any nephrotoxic medication and we will need to monitor for next 24-48 hours. Imaging studies have been negative so far, including CT scan of head and brain MRI. 3. Uncontrolled hypertension. His blood pressure was about 200 mmHg systolic yesterday, which has improved. I would recommend to continue with his chronic antihypertensive medications and increase the dose of hydralazine as needed. We will dialyze him tomorrow morning and try to remove some fluid as tolerated, which might also help with his blood pressure control. Thank you for involving me in the care of Mr. Norwood. I will follow him along with you.
[2019-07-12] MEDS ORDERED: HumuLIN R (REGULAR) INSULIN (NovoLIN R) **100U/ML** PER UNIT IV STA ×3 (20:04→22:38)
[2019-07-12] MEDS: CitaloPRAM (CeleXA) 20 MG TAB PO SCH (20:24)
[2019-07-12] MEDS: LEVEMIR (INSULIN DETEMIR) 1 UNITS/0.01ML SC SCH (20:25)
[2019-07-12 23:28] LABS: CALCIUM LEVEL 8.5 MG/DL (8.8-10.2); CREATININE FOR GFR 7.87 MG/DL (0.70-1.30); GLOMERULAR FILTRATION RATE 7.3 (>49); POTASSIUM SERUM 3.9 MEQ/L (3.5-5.1)
[2019-07-12] MEDS ORDERED: LEVEMIR (INSULIN DETEMIR) 1 UNITS/0.01ML SC ONE (23:30)
[2019-07-13] VITALS (14 sets, daily range): BP systolic 150–182; BP diastolic 60–68; O2SAT 91–97
[2019-07-13] MEDS: SLF 3 ML SYR IV SCH ×3 (05:01→20:43)
[2019-07-13 05:35] LABS: HEMATOCRIT 39.4 % (42.0-52.0); HEMOGLOBIN 13.3 g/dl (13.5-17.5); MEAN CORPUSCULAR HEMOGLOBIN 33.6 pg (27.0-33.0); MEAN CORPUSCULAR HGB CONC 33.8 g/dl (32.0-36.5); MEAN CORPUSCULAR VOLUME 99.5 fl (80.0-96.0); PLATELET COUNT, AUTOMATED 240 10^3/uL (150-450); RED BLOOD COUNT 3.96 10^6/uL (4.30-6.10); WHITE BLOOD COUNT 5.8 10^3/uL (4.0-10.0)
[2019-07-13 06:01] LABS: ALBUMIN 2.9 GM/DL (3.2-5.2); BILIRUBIN,TOTAL 0.7 MG/DL (0.2-1.0); CREATININE FOR GFR 8.15 MG/DL (0.70-1.30); POTASSIUM SERUM 3.4 MEQ/L (3.5-5.1); TOTAL PROTEIN 7.1 GM/DL (6.4-8.2)
[2019-07-13] MEDS: HumaLOG INSULIN (NovoLOG) PER UNIT SC SCH ×4 (07:30→20:42)
[2019-07-13] MEDS ORDERED: POTASSIUM CHLORIDE 10% LIQ 20 MEQ/15 ML UDC PO ONE (07:30)
[2019-07-13] MEDS ORDERED: CHLORTHALIDONE 25 MG TAB PO SCH (09:00)
--- NOTE | 2019-07-13 09:15 | IPNPDOC ---
Date Seen The patient was seen on 07/13/19. Progress Note SUBJECTIVE: Patient was seen and examined this morning in his room lying comfortably in bed. There is some delay in his ability to answer questions, but he is answering questions appropriately and following directions. He denies any pain or any other complaints. OBJECTIVE PHYSICAL EXAMINATION: VITAL SIGNS: See below GENERAL APPEARANCE: The patient is awake, lying in bed, and does respond ap propriately today as well as follow directions appears comfortable in no acute distress HEENT: Atraumatic, normocephalic, PERRLA, EOMI, moist membranes CARDIOVASCULAR: Regular rate and rhythm, normal S1, S2, no murmurs, rubs or gallops. LUNGS: Decreased lung sounds bilaterally throughout, no wheezing, rhonchi, or rales. ABDOMEN: Soft, nondistended, bowel sounds present, no masses palpated. MUSCULOSKELETAL: Moves all 4 extremities spontaneously EXTREMITIES: 2+ pulses in bilateral radial arteries, unable to palpate pulses in dorsalis pedis or posterior tibial arteries NEUROLOGICAL: No focal deficits appreciated, CN 2-12 grossly intact bilaterally. Alert and oriented to person, place, and year PSYCHIATRIC: Flat but not inappropriate LABORATORY DATA, IMAGING STUDIES, MICROBIOLOGY: Please see below. DVT prophylaxis ordered?: Patient is on Lovenox, but stopped temporarily for possible procedure tomorrow ASSESSMENT AND PLAN: This is a 69-year-old male with end-stage renal disease on dialysis who presents with hypertensive encephalopathy PROBLEMS: 1. Hypertensive encephalopathy: -Mental status continually shows improvement and patient is better able to converse and follow directions. Continue working with physical therapy, occupational therapy, and speech therapy. 2. Hypertensive urgency Increased Hydralazine to 50 mg TID for better BP control 3. Diabetes mellitus type 1 with insulin. Sliding scale insulin, hypoglycemia protocol Consistent carbohydrate diet. -increased Levemir for better control 4. COPD Continue home inhalers, he is at his baseline respiratory status 5. ESRD on hemodialysis. Nephrology consult, appreciate their input and recommendations. Hemodialysis per nephrology while inpatient 6. PVD and CAD Continue home medications including aspirin, atorvastatin, clopidogrel 7. Anemia: chronic disease, hx GI bleeding Continue current supplement, monitor CBC daily. 8. Spinal stenosis, lumbar. pain management while inpatient Home baclofen held in the setting of altered mental status 9. Peripheral neuropathy. No home medication 10. Gout arthropathy. Continue home allopurinol. 11. Unspecified psychiatric history. Continue mirtazapine and citalopram DVT prophylaxis: Lovenox Disposition: Pending PT and DP optimization Attending addendum: I personally saw and examined the patient. I discussed the care and management of this patient with the resident in detail and agree with the plan above. Additional information below: - admitted for hypertensive urgency & encephalopathy, AMS improving, titrating BP meds for optimal control. Was on insulin pump at home, discontinued while hospitalized, fingersticks all over the place, increased Levemir dosing for better control. PT/OT eval VS, I&O, 24H, Fishbone Vital Signs/I&O Vital Signs Date Time Temp Pulse Resp B/P (MAP) Pulse Ox O2 Delivery O2 Flow Rate FiO2 07/13/19 04:00 98.8 68 16 170/66 (100) 94 Room Air I&O- Last 24 Hours up to 6 AM 07/13/19 05:59 Intake Total 840 ml Output Total 200 ml Balance 640 ml Laboratory Data 24H LABS Laboratory Tests 2 07/12/19 16:40: Bedside Glucose (Misc Panel) 510*H 07/12/19 16:44: Bedside Glucose (Misc Panel) 555*H 07/12/19 16:59: Bedside Glucose Confirm (Misc) 497*H 07/12/19 18:18: Bedside Glucose (Misc Panel) 574*H 07/12/19 19:37: Bedside Glucose (Misc Panel) 585*H 07/12/19 21:06: Bedside Glucose (Misc Panel) 536*H 07/12/19 22:32: Bedside Glucose (Misc Panel) 482H 07/12/19 22:59: Anion Gap 10, Glomerular Filtration Rate 7.3L, Calcium Level 8.5L 07/12/19 23:59: Bedside Glucose (Misc Panel) 386H 07/13/19 01:35: Bedside Glucose (Misc Panel) 258H 07/13/19 04:08: Bedside Glucose (Misc Panel) 150H 07/13/19 05:09: Nucleated Red Blood Cells % (auto) 0.0, Anion Gap 12, Glomerular Filtration Rate 7.0L, Calcium Level 9.0, Total Bilirubin 0.7, Aspartate Amino Transf (AST/SGOT) 17, Alanine Aminotransferase (ALT/SGPT) 15, Alkaline Phosphatase 87, Total Protein 7.1, Albumin 2.9L, Albumin/Globulin Ratio 0.69L 07/13/19 06:34: Bedside Glucose (Misc Panel) 99 CBC/BMP Laboratory Tests 07/12/19 22:59 07/13/19 05:09 Microbiology Microbiology 07/10/19 Respiratory Virus Panel (PCR) ([facility]) - Final, Complete 07/09/19 Blood Culture - Preliminary, Resulted No Growth after 72 hours. All specime... 07/09/19 Blood Culture - Preliminary, Resulted No Growth after 72 hours. All specime... HOLLIS MALDONADO PGY-1 Jul 13, 2019 09:15 NATHANAEL DIETZ MD Jul 13, 2019 15:28
[2019-07-13] MEDS: CLOPIDOGREL 75 MG TAB PO SCH (09:28)
[2019-07-13] MEDS: FERROUS SULFATE 325MG TAB PO SCH (09:28)
[2019-07-13] MEDS: DOCUSATE SODIUM 100 MG CAP PO SCH ×2 (09:28→20:42)
[2019-07-13] MEDS: PANTOPRAZOLE 40MG TAB (PROTONIX) PO SCH ×2 (09:28→20:41)
[2019-07-13] MEDS: ASPIRIN 81 MG ENTERIC TAB PO SCH (09:28)
[2019-07-13] MEDS: SPIRONOLACTONE 25 MG TAB PO SCH ×2 (09:28→20:41)
[2019-07-13] MEDS: CALCITRIOL 0.25 MCG CAP (S0169) PO SCH (09:28)
[2019-07-13] MEDS: THIAMINE 100 MG TAB PO SCH (09:28)
[2019-07-13] MEDS: **hydrALAZINE HCL** 25 MG TAB PO SCH (09:28)
[2019-07-13] MEDS: ALLOPURINOL 100 MG TAB PO SCH (09:29)
[2019-07-13] MEDS: cloNIDine 0.1 MG TAB PO SCH ×3 (09:29→20:41)
[2019-07-13] MEDS: amLODIPine 10 MG TAB PO SCH (09:29)
[2019-07-13] MEDS: TRIAMCINOLONE ACET 0.1% OINTMENT 15 GM TOP SCH ×2 (09:30→20:43)
--- NOTE | 2019-07-13 12:00 | IPN ---
DATE: 07/13/2019 The patient seen this morning in his room. He is much less talkative than yesterday but was able to answer some questions. He new where he was. He knew that he was at [facility] and he knew the year. He was not threatening to sign out against medical advice today. OBJECTIVE: VITAL SIGNS: Temperature 98.1, pulse 71, respiratory rate of 18, blood pressure 172/68, pulse ox 95% on room air. Output yesterday was 200 mL of urine. GENERAL: Patient is sitting up in a chair at bedside, awake. Alert and oriented times two. In no acute distress. HEENT: Extraocular muscles intact. Pupils equal, round, and reactive to light. Mucous membranes moist. NECK: Supple without jugular venous distention (JVD). CARDIOVASCULAR: Regular rate and rhythm. Normal S1 and S2. No edema in bilateral lower extremities. RESPIRATORY: Clear to auscultation and percussion with full breath sounds bilaterally. No wheezes, crackles or rhonchi. ABDOMEN: Positive bowel sounds. Soft, nontender. Nondistended. MUSCULOSKELETAL: No clubbing, cyanosis or edema. He has a right arteriovenous fistula with thrill and bruit. CENTRAL NERVOUS SYSTEM (DIRECTOR OF ACCREDITATION): He is oriented times two and is able to follow commands and move his extremities. His strength is intact in his bilateral upper extremities. He continues to be slow to respond to questioning. LAB REVIEW: White blood cell count of 5.8, hemoglobin 13.3, hematocrit 39.4, platelet count 240. Sodium 138, potassium 3.4, chloride 100, CO2 26, BUN 62, creatinine 8.15, glucose 123, calcium 9, AST 17, ALT 15, alkaline phosphatase 87, albumin 2.9. ASSESSMENT/PLAN: 1. End-stage renal disease (ESRD) on hemodialysis: Patient is scheduled for dialysis on Saturday, , Saturday. He will proceed to his next dialysis on Saturday and does not require any urgent need for dialysis today. 2. Hypertensive urgency: Patient's blood pressures still remain somewhat elevated. He gets clonidine on nondialysis days only. Continue current dose of amlodipine 10 mg by mouth. Continue spirolactone 25 mg by mouth twice a day as well. 3. Hypertensive encephalopathy: The patient's blood pressure will continue to be optimized at his dialysis appointments. If he continues to make very subtle mild improvements, it seems like he is coming close to being back at his baseline mental status. His blood pressures need to be further optimized prior to discharge.
[2019-07-13] MEDS: **hydrALAZINE** 50 MG TAB PO SCH ×2 (16:19→20:41)
[2019-07-13] MEDS ORDERED: LEVEMIR (INSULIN DETEMIR) 1 UNITS/0.01ML SC SCH (17:45)
[2019-07-13] MEDS: ATORVASTATIN 20 MG TAB PO SCH (18:07)
[2019-07-13] MEDS: MIRTAZAPINE 15 MG TAB PO SCH (18:07)
[2019-07-13] MEDS ORDERED: HumuLIN R (REGULAR) INSULIN (NovoLIN R) **100U/ML** PER UNIT IV STA ×2 (18:24→18:27)
[2019-07-13] MEDS ORDERED: LORazepam 2 MG/ML VIAL (J2060) IM STA (19:52)
[2019-07-13] MEDS: CitaloPRAM (CeleXA) 20 MG TAB PO SCH (20:40)
--- NOTE | 2019-07-13 22:32 | EEG ---
DATE OF PROCEDURE: 07/13/2019 REFERRING PHYSICIAN: Dr. George Davila DIAGNOSIS: Altered mental status. EEG NUMBER: [id number] HISTORY: The patient is a 69-year-old man with history of end-stage renal disease on hemodialysis, who was admitted at [facility] due to sudden onset altered mental status and confusion. He is currently taking aspirin, Plavix, Celexa, thiamine, hydralazine, clonidine, mirtazapine, etc. TECHNICAL DESCRIPTION: This digital EEG was recorded by 21 scalp, ear and two EKG electrodes and was reviewed in bipolar and referential montages following reformatting in 10-20 international electrode placement system. INTERPRETATION: The patient was noted to be in awake, confused and drowsy states during this EEG. Background rhythm consisted of 3-4 Hz theta activity with bilateral frontal triphasic waves with anterior/posterior gradient. Intermittent bilateral frontal sharp waves were noted following suppression, and these had much sharper morphology than triphasic waves. No sleep stages were identified. Hyperventilation could not be performed. Photic stimulation remained unremarkable. EKG revealed normal sinus rhythm. No relevant clinical activity was noted. CONCLUSION: This EEG in awake and drowsy states is abnormal due to presence of generalized slowing and bilateral frontally predominant triphasic waves consistent with nonspecific diffuse cerebral dysfunction, such as seen in encephalopathy. In addition, bilateral frontal and temporal sharp waves followed by suppression was noted. This can represent periodic lateralized epileptiform discharges. Clinical correlation is recommended.
[2019-07-13] MEDS ORDERED: hydrALAZINE INJ 20 MG/ML VIAL IV ONE (23:45)
[2019-07-14] VITALS (8 sets, daily range): BP systolic 159–210; BP diastolic 60–93; O2SAT 95
[2019-07-14] MEDS: SLF 3 ML SYR IV SCH ×3 (06:03→21:20)
[2019-07-14 06:16] LABS: HEMATOCRIT 38.8 % (42.0-52.0); HEMOGLOBIN 13.2 g/dl (13.5-17.5); MEAN CORPUSCULAR HEMOGLOBIN 33.7 pg (27.0-33.0); PLATELET COUNT, AUTOMATED 266 10^3/uL (150-450); RED BLOOD COUNT 3.92 10^6/uL (4.30-6.10); WHITE BLOOD COUNT 7.4 10^3/uL (4.0-10.0)
[2019-07-14] MEDS: CALCITRIOL 0.25 MCG CAP (S0169) PO SCH (06:32)
[2019-07-14] MEDS: ASPIRIN 81 MG ENTERIC TAB PO SCH (06:32)
[2019-07-14] MEDS: ALLOPURINOL 100 MG TAB PO SCH (06:33)
[2019-07-14] MEDS: amLODIPine 10 MG TAB PO SCH (06:33)
[2019-07-14] MEDS: SPIRONOLACTONE 25 MG TAB PO SCH ×2 (06:34→21:20)
[2019-07-14] MEDS: **hydrALAZINE** 50 MG TAB PO SCH ×4 (06:34→21:19)
[2019-07-14] MEDS: CLOPIDOGREL 75 MG TAB PO SCH (06:35)
[2019-07-14] MEDS: PANTOPRAZOLE 40MG TAB (PROTONIX) PO SCH ×2 (06:35→21:19)
[2019-07-14] MEDS: DOCUSATE SODIUM 100 MG CAP PO SCH ×2 (06:35→21:00)
[2019-07-14] MEDS: FERROUS SULFATE 325MG TAB PO SCH (06:36)
[2019-07-14] MEDS: HumaLOG INSULIN (NovoLOG) PER UNIT SC SCH ×4 (06:36→21:20)
[2019-07-14] MEDS: TRIAMCINOLONE ACET 0.1% OINTMENT 15 GM TOP SCH (06:37)
[2019-07-14] MEDS: THIAMINE 100 MG TAB PO SCH (06:38)
[2019-07-14 06:54] LABS: ALBUMIN 2.8 GM/DL (3.2-5.2); BILIRUBIN,TOTAL 0.3 MG/DL (0.2-1.0); CREATININE FOR GFR 9.12 MG/DL (0.70-1.30); GLOMERULAR FILTRATION RATE 6.2 (>49); POTASSIUM SERUM 3.3 MEQ/L (3.5-5.1)
[2019-07-14] MEDS ORDERED: PILL CUTTER 1 EACH XX PRN (08:15)
--- NOTE | 2019-07-14 10:05 | IPNPDOC ---
Date Seen The patient was seen on 07/14/19. Progress Note SUBJECTIVE: Patient was seen and examined this morning, sitting up comfortably on the edge of the bed while working with the occupational therapist. He states he has been having some increased shortness of breath when he lies flat and feels his breathing is improved when he sits up straight in a chair. He is able to tell me his name, location, month and year today. He denies any additional complaints today. OBJECTIVE PHYSICAL EXAMINATION: VITAL SIGNS: See below GENERAL APPEARANCE: The patient is awake, alert, and responds appropriately today and follows directions, appears comfortable in no acute distress HEENT: Atraumatic, normocephalic, PERRLA, EOMI, moist membranes CARDIOVASCULAR: Regular rate and rhythm, normal S1, S2, no murmurs, rubs or gallops. LUNGS: Decreased lung sounds bilaterally throughout, no wheezing, rhonchi, or rales. ABDOMEN: Soft, nondistended, bowel sounds present, no masses palpated. MUSCULOSKELETAL: Moves all 4 extremities spontaneously EXTREMITIES: 2+ pulses in bilateral radial arteries, unable to palpate pulses in dorsalis pedis or posterior tibial arteries NEUROLOGICAL: No focal deficits appreciated, CN 2-12 grossly intact bilaterally. Alert and oriented to person, place, month, and year PSYCHIATRIC: Mood and affect appropriate LABORATORY DATA, IMAGING STUDIES, MICROBIOLOGY: Please see below. ASSESSMENT AND PLAN: This is a 69-year-old male with end-stage renal disease on dialysis who presents with hypertensive encephalopathy PROBLEMS: 1. Encephalopathy - possibly 2/2 elevated blood pressure (Hypertensive encephalopathy) -Mental status continually shows improvement and patient is better able to converse and follow directions. Continue working with physical therapy, occupational therapy, and speech therapy. 2. Hypertensive urgency Patient received 20 mg IV hydralazine overnight Increased Hydralazine to 75 mg TID for better BP control 3. Diabetes mellitus type 1 with insulin. Sliding scale insulin, hypoglycemia protocol. Consistent carbohydrate diet. -increased qhs Levemir yesterday for better control -Patient was on insulin pump as an outpatient, which according to the , he managed himself. At this point, his mental status has not improved enough to the point where he could continue to manage the insulin pump on his own. Plan to resume insulin pump upon discharge. 4. COPD - No evidence of exacerbation Continue home inhalers, he is at his baseline respiratory status 5. ESRD on hemodialysis. Nephrology consult, appreciate their input and recommendations. Hemodialysis per nephrology while inpatient, currently on his outpatient schedule (,,) -Expect shortness of breath this morning to improve after fluid removal during hemodialysis. 6. PVD and CAD Continue home medications including aspirin, atorvastatin, clopidogrel 7. Anemia: chronic disease, hx GI bleeding Continue current supplement, monitor CBC daily. 8. Spinal stenosis, lumbar. pain management while inpatient Home baclofen held in the setting of altered mental status 9. Peripheral neuropathy. No home medication 10. Gout arthropathy. Continue home allopurinol. 11. Unspecified psychiatric history. Continue mirtazapine and citalopram DVT prophylaxis: Lovenox Disposition: Pending PT and DP optimization VS, I&O, 24H, Fishbone Vital Signs/I&O Vital Signs Date Time Temp Pulse Resp B/P (MAP) Pulse Ox O2 Delivery O2 Flow Rate FiO2 07/14/19 07:45 98.2 87 22 160/60 (93) 97 Room Air I&O- Last 24 Hours up to 6 AM 07/14/19 06:00 Intake Total 1320 ml Output Total 0 ml Balance 1320 ml Laboratory Data 24H LABS Laboratory Tests 2 07/13/19 13:04: Bedside Glucose (Misc Panel) 431H 07/13/19 17:25: Bedside Glucose (Misc Panel) 507*H 07/13/19 17:37: Bedside Glucose Confirm (Misc) 495*H 07/13/19 20:19: Bedside Glucose (Misc Panel) 447H 07/14/19 00:09: Bedside Glucose (Misc Panel) 302H 07/14/19 05:47: Nucleated Red Blood Cells % (auto) 0.0, Anion Gap 13, Glomerular Filtration Rate 6.2L, Calcium Level 9.0, Total Bilirubin 0.3#, Aspartate Amino Transf (AST/SGOT) 24, Alanine Aminotransferase (ALT/SGPT) 21, Alkaline Phosphatase 87, Total Protein 7.0, Albumin 2.8L, Albumin/Globulin Ratio 0.67L 07/14/19 06:22: Bedside Glucose (Misc Panel) 40L 07/14/19 07:03: Bedside Glucose (Misc Panel) 43L 07/14/19 08:09: Bedside Glucose (Misc Panel) 179H CBC/BMP Laboratory Tests 07/14/19 05:47 Microbiology Microbiology 07/10/19 Respiratory Virus Panel (PCR) ([facility]) - Final, Complete 07/09/19 Blood Culture - Preliminary, Resulted No Growth after 72 hours. All specime... 07/09/19 Blood Culture - Preliminary, Resulted No Growth after 72 hours. All specime... GME ATTESTATION GME ATTESTATION My faculty preceptor for this patient encounter was physically present during the encounter and was fully available. All aspects of the patient interview, examination, medical decision making process, and medical care plan development were reviewed and approved by the faculty preceptor. The faculty preceptor is aware and concurs with the plan as stated in the body of this note and will attest to such by his/her cosignature. ATTENDING NOTE I, Timo May, have independently examined this patient and performed my own physical exam, as well as reviewed the documentation and edited where necessary. I have discussed in detail with the resident / student the findings and plan of treatment as documented by the resident / student and edited their note. I agree with their findings and treatment plan and have edited their documentation. I will continue to follow the patient during this hospital stay. HOLLIS MALDONADO PGY-1 Jul 14, 2019 10:05 TIMO MAY MD Jul 14, 2019 14:41
[2019-07-14] MEDS ORDERED: LIDOCAINE 1% SDV 5 ML VIAL SQ ONE (10:15)
--- NOTE | 2019-07-14 12:36 | IPN ---
DATE OF SERVICE: 07/14/2019 SUBJECTIVE: The patient was seen and examined the bedside today morning during hemodialysis. He is tolerating the hemodialysis procedure well. His blood pressures are better controlled and he is able to answer questions. OBJECTIVE: VITAL SIGNS: Temperature is 98.2 degrees Fahrenheit, blood pressure 160/60, pulse is 87, respiratory rate 22, saturating 97% on room air. INTAKE AND OUTPUT: There is no urine output recorded. Weight on the bed scale is 60.4 with the PHYSICAL EXAMINATION: GENERAL: The patient is awake, alert and oriented times two, laying in bed getting hemodialysis done. HEAD AND NECK EXAM: Extraocular muscles intact. Pupils equally round and reactive to light. Mucous membranes are moist. Neck is supple. There is no jugular venous distention (JVD). CARDIOVASCULAR: S1, S2 regular rate. No edema of the bilateral lower extremities. RESPIRATORY: Chest is clear to auscultation bilaterally. Bilateral equal air entry. No rales or rhonchi. ABDOMEN: Soft, positive bowel sounds. Nontender. No organomegaly. MUSCULOSKELETAL: No clubbing or cyanosis. Pulses are 2+. Right forearm AV fistula is being used for dialysis. CAR RENTAL MANAGER: The patient is oriented times two, he follows commands, but he is slow to answer questions. LAB REVIEW: CBC showed WBC 7.4, hemoglobin 13.2, platelets of 266. BMP showed sodium 139, potassium 3.3, chloride 101, bicarb 25, BUN 76, creatinine is 9.1, albumin 2.8. CURRENT INPATIENT MEDICATIONS: The patient's medications were all reviewed by me. His hydralazine dose has been increased to 75 mg p.o. three times a day by the primary team and his Levemir dose has also been changed to 50 units subcu q.h.s. No other change in the medications today as compared with yesterday. ASSESSMENT/PLAN: 1. End-stage renal disease dependent on hemodialysis. The patient is being dialyzed today according to his regular Saturday, , Saturday schedule. Ultrafiltration goal will be around 1.5 to 2 liters as tolerated by his blood pressure. 2. Hypertension with end-stage renal disease. The patient's antihypertensive regimen is being adjusted by the primary team. He is currently on clonidine on dialysis days, hydralazine has been increased to 75 mg three times a day. He is also on amlodipine 10 mg p.o. daily. 3. Hypokalemia. The patient is being dialyzed with a 4K bath. He also get spironolactone. 4. Hypertensive encephalopathy. The patient is clinically improving. He is able to answer questions and he is oriented times two. Blood pressures are better controlled now.
[2019-07-14 17:31] LABS: AMYLASE 41 U/L (25-115); LIPASE 110 U/L (73-393)
[2019-07-14] MEDS: MIRTAZAPINE 15 MG TAB PO SCH (17:54)
[2019-07-14] MEDS: ATORVASTATIN 20 MG TAB PO SCH (17:54)
[2019-07-14] MEDS ORDERED: LEVEMIR (INSULIN DETEMIR) 1 UNITS/0.01ML SC SCH (21:00)
[2019-07-14] MEDS: CitaloPRAM (CeleXA) 20 MG TAB PO SCH (21:19)
[2019-07-14] MEDS: LEVEMIR (INSULIN DETEMIR) 1 UNITS/0.01ML SC SCH (21:20)
[2019-07-15] VITALS (8 sets, daily range): BP systolic 102–200; BP diastolic 54–88
[2019-07-15] MEDS: SLF 3 ML SYR IV SCH ×3 (05:46→21:12)
[2019-07-15 05:52] LABS: HEMATOCRIT 40.4 % (42.0-52.0); HEMOGLOBIN 13.5 g/dl (13.5-17.5); MEAN CORPUSCULAR HEMOGLOBIN 33.8 pg (27.0-33.0); MEAN CORPUSCULAR HGB CONC 33.4 g/dl (32.0-36.5); MEAN CORPUSCULAR VOLUME 101.3 fl (80.0-96.0); PLATELET COUNT, AUTOMATED 216 10^3/uL (150-450); RED BLOOD COUNT 3.99 10^6/uL (4.30-6.10); WHITE BLOOD COUNT 4.9 10^3/uL (4.0-10.0)
[2019-07-15 06:12] LABS: ALBUMIN 2.7 GM/DL (3.2-5.2); BILIRUBIN,TOTAL 0.4 MG/DL (0.2-1.0); CALCIUM LEVEL 8.8 MG/DL (8.8-10.2); CREATININE FOR GFR 5.71 MG/DL (0.70-1.30); GLOMERULAR FILTRATION RATE 10.6 (>49); POTASSIUM SERUM 3.9 MEQ/L (3.5-5.1)
[2019-07-15] MEDS ORDERED: fentaNYL 100 MCG/2 ML INJECTION (J3010) IV ONE (07:30)
[2019-07-15] MEDS ORDERED: MIDAZOLAM INJ 2 MG/2 ML VIAL (J2250) IV ONE (07:30)
[2019-07-15] MEDS: THIAMINE 100 MG TAB PO SCH (08:14)
[2019-07-15] MEDS: PANTOPRAZOLE 40MG TAB (PROTONIX) PO SCH ×2 (08:14→21:10)
[2019-07-15] MEDS: DOCUSATE SODIUM 100 MG CAP PO SCH ×2 (08:14→21:10)
[2019-07-15] MEDS: SPIRONOLACTONE 25 MG TAB PO SCH ×2 (08:14→21:10)
[2019-07-15] MEDS: CLOPIDOGREL 75 MG TAB PO SCH (08:14)
[2019-07-15] MEDS: ALLOPURINOL 100 MG TAB PO SCH (08:15)
[2019-07-15] MEDS: amLODIPine 10 MG TAB PO SCH (08:15)
[2019-07-15] MEDS: **hydrALAZINE** 50 MG TAB PO SCH ×3 (08:15→21:10)
[2019-07-15] MEDS: CALCITRIOL 0.25 MCG CAP (S0169) PO SCH (08:16)
[2019-07-15] MEDS: FUROSEMIDE 20 MG TAB PO SCH (08:16)
[2019-07-15] MEDS: ASPIRIN 81 MG ENTERIC TAB PO SCH (08:16)
[2019-07-15] MEDS: HumaLOG INSULIN (NovoLOG) PER UNIT SC SCH ×4 (08:18→21:00)
[2019-07-15] MEDS: LEVEMIR (INSULIN DETEMIR) 1 UNITS/0.01ML SC SCH ×2 (08:18→21:11)
[2019-07-15] MEDS: FERROUS SULFATE 325MG TAB PO SCH (08:20)
[2019-07-15] MEDS: ENOXAPARIN 30 MG/0.3 ML SYR (J1650) SC SCH (08:20)
[2019-07-15] MEDS ORDERED: cloNIDine 0.1 MG TAB PO SCH ×3 (09:00→21:00)
[2019-07-15] MEDS ORDERED: cloNIDine HCL 0.3 MG/24 HR PATCH TOP SCH (09:00)
[2019-07-15] MEDS ORDERED: VITAMIN D 50,000 UNITS CAPSULE (ERGOCALCIFEROL 1.25MG) PO SCH (09:00)
--- NOTE | 2019-07-15 10:21 | IPNPDOC ---
Date Seen The patient was seen on 07/15/19. Progress Note SUBJECTIVE: Patient was seen and examined this morning, uncomfortable in bed. He states he would like to sit up and eat his breakfast but if he sets up his bed alarm goes off. He also states he would like some Tylenol for his lower abdominal pain. States this is improved from yesterday. He denies any changes in appetite. He states he did have a bowel movement yesterday, confirmed by the nurse. Otherwise he denies any complaints. OBJECTIVE PHYSICAL EXAMINATION: VITAL SIGNS: See below GENERAL APPEARANCE: The patient is awake, alert, and responds appropriately today and follows directions, appears comfortable in no acute distress HEENT: Atraumatic, normocephalic, PERRLA, EOMI, moist membranes CARDIOVASCULAR: Regular rate and rhythm, normal S1, S2, no murmurs, rubs or gallops. LUNGS: Decreased lung sounds bilaterally throughout, no wheezing, rhonchi, or rales. ABDOMEN: Soft, nondistended, bowel sounds present, no masses palpated. Tender to deep palpation in the lower abdomen along the midline. Otherwise nontender. MUSCULOSKELETAL: Moves all 4 extremities spontaneously EXTREMITIES: 2+ pulses in bilateral radial arteries, unable to palpate pulses in dorsalis pedis or posterior tibial arteries NEUROLOGICAL: No focal deficits appreciated, CN 2-12 grossly intact bilaterally. Alert and oriented to person, place, month, and year PSYCHIATRIC: Mood and affect appropriate LABORATORY DATA, IMAGING STUDIES, MICROBIOLOGY: Please see below. ASSESSMENT AND PLAN: This is a 69-year-old male with end-stage renal disease on dialysis who presents with hypertensive encephalopathy PROBLEMS: 1. Encephalopathy - possibly 2/2 elevated blood pressure (Hypertensive encephalopathy) -Mental status continually shows improvement and patient is better able to converse and follow directions. Repeat EEG scheduled by Dr. Stoddard after abnormal initial EEG findings to rule out subclinical seizure Continue working with physical therapy, occupational therapy, and speech therapy. 2. Hypertensive urgency Patient continues to have elevated blood pressure, despite 1.5 L of fluid removed yesterday during dialysis. Increased clonidine to 0.2 mg 3 times a day on nondialysis days 3. Pelvic/lower abdominal pain - Pt reported pelvis pain yesterday evening which is persistent. - Amylase / Lipase negative - UA was negative, check CT abd/pelvis 4. Diabetes mellitus type 1 with insulin. Sliding scale insulin, hypoglycemia protocol. Consistent carbohydrate diet. -Switched to twice a day dosing of Levemir at 30 units considering his ESRD -Patient was on insulin pump as an outpatient, which according to the , he managed himself. At this point, his mental status has not improved enough to the point where he could continue to manage the insulin pump on his own. Plan to resume insulin pump upon discharge. 5. COPD - No evidence of exacerbation Continue home inhalers, he is at his baseline respiratory status 6. ESRD on hemodialysis. Nephrology consult, appreciate their input and recommendations. Hemodialysis per nephrology while inpatient, currently on his outpatient schedu le (,,) -1.5 L of fluid removed yesterday during dialysis 7. PVD and CAD Continue home medications including aspirin, atorvastatin, clopidogrel 8. Anemia: chronic disease, hx GI bleeding Continue current supplement, monitor CBC daily. 9. Spinal stenosis, lumbar. pain management while inpatient Home baclofen held in the setting of altered mental status 10. Peripheral neuropathy. No home medication 11. Gout arthropathy. Continue home allopurinol. 12. Unspecified psychiatric history. Continue mirtazapine and citalopram DVT prophylaxis: Lovenox Disposition: Pending PT and DP optimization VS, I&O, 24H, Fishbone Vital Signs/I&O Vital Signs Date Time Temp Pulse Resp B/P (MAP) Pulse Ox O2 Delivery O2 Flow Rate FiO2 07/15/19 08:15 74 200/88 07/15/19 08:00 99.1 20 96 Room Air I&O- Last 24 Hours up to 6 AM 07/15/19 06:00 Intake Total 240 ml Output Total 1725 ml Balance -1485 ml Laboratory Data 24H LABS Laboratory Tests 2 07/14/19 13:05: Bedside Glucose (Misc Panel) 96 07/14/19 16:49: Bedside Glucose (Misc Panel) 324H 07/14/19 16:55: Amylase Level 41, Lipase 110 07/14/19 17:24: Urine Color YELLOW, Urine Appearance CLEAR, Urine pH 8.0, Urine Specific [place] 1.013, Urine Protein 3+H, Urine Glucose (UA) 3+H, Urine Ketones NEGATIVE, Urine Blood NEGATIVE, Urine Nitrite NEGATIVE, Urine Bilirubin NEGATIVE, Urine Urobilinogen 0.2, Urine Leukocyte Esterase NEGATIVE, Urine WBC (Auto) 2, Urine RBC (Auto) 1, Urine Hyaline Casts (Auto) 2, Urine Bacteria (Auto) NEGATIVE, Urine Squamous Epithelial Cells 0, Urine Sperm (Auto) 07/14/19 20:01: Bedside Glucose (Misc Panel) 577*H 07/15/19 05:20: Nucleated Red Blood Cells % (auto) 0.0, Anion Gap 9, Glomerular Filtration Rate 10.6L, Calcium Level 8.8, Total Bilirubin 0.4, Aspartate Amino Transf (AST/SGOT) 17, Alanine Aminotransferase (ALT/SGPT) 19, Alkaline Phosphatase 87, Total Protein 7.0, Albumin 2.7L, Albumin/Globulin Ratio 0.63L 07/15/19 05:41: Bedside Glucose (Misc Panel) 188H CBC/BMP Laboratory Tests 07/15/19 05:20 Microbiology Microbiology 07/10/19 Respiratory Virus Panel (PCR) (ADOLFO) - Final, Complete 07/09/19 Blood Culture - Final, Complete NO GROWTH AFTER 5 DAYS 07/09/19 Blood Culture - Final, Complete NO GROWTH AFTER 5 DAYS GME ATTESTATION GME ATTESTATION My faculty preceptor for this patient encounter was physically present during the encounter and was fully available. All aspects of the patient interview, examination, medical decision making process, and medical care plan development were reviewed and approved by the faculty preceptor. The faculty preceptor is aware and concurs with the plan as stated in the body of this note and will attest to such by his/her cosignature. ATTENDING NOTE I, Timo May, have independently examined this patient and performed my own physical exam, as well as reviewed the documentation and edited where necessary. I have discussed in detail with the resident / student the findings and plan of treatment as documented by the resident / student and edited their note. I agree with their findings and treatment plan and have edited their documentation. I will continue to follow the patient during this hospital stay. Plan: - Will CT abdoemn / pelvis with IV contrast - discussed with nephrology - BP medications have been adjusted for better control - Will remain in PCU; re: possibility of requiring IV BP control medications HOLLIS MALDONADO PGY-1 Jul 15, 2019 10:21 TIMO MAY MD Jul 15, 2019 12:45
[2019-07-15] MEDS: GASTROGRAFIN SOLUTION 30ML PO SCH ×2 (10:34→11:11)
[2019-07-15] MEDS ORDERED: ISOVUE-370 76% 100ML VIAL (Q9967) As Ordered ONE (11:56)
[2019-07-15] MEDS: LABETALOL 200 MG TAB PO SCH ×2 (12:42→21:09)
[2019-07-15] MEDS: ISOSORBIDE DIN. (ISORDIL) 30 MG TAB PO SCH ×2 (12:42→21:09)
--- NOTE | 2019-07-15 13:04 | IPN ---
DATE OF SERVICE: 07/15/2019 SUBJECTIVE: Patient was seen and examined at the bedside today morning. Patient is still encephalopathic and as reported by nursing staff he was pulling his lines. His room was changed for direct observation. Blood pressures remained high. His systolic blood pressures are ranging anywhere between 180s-200s. He was dialyzed yesterday. He tolerated the hemodialysis procedure well. 1.5 liters of fluid was removed. Patient is still answering questions and follows commands. When I examined him, he was not agitated. OBJECTIVE Vital signs: Temperature is 98.1 degrees Fahrenheit, blood pressure 200/88, pulse 74, respiratory rate of 20, saturating 96% on room air. Intake and output: Ultrafiltration with hemodialysis was 1.5 liters yesterday. Weight in the bed scale is 67.5 kg, which is not reliable because there 7 kg difference in the bed scale weight since yesterday. PHYSICAL EXAMINATION: General: Patient is awake, alert, oriented times two, sitting up in the sofa, in no apparent distress. Head and neck exam: Extraocular muscles intact. Pupils equally round and reactive to light. Mucous membranes are moist. Neck is supple. There is no jugular venous distention (JVD). Cardiovascular: S1, S2, regular rate. No edema of the bilateral lower extremities. Respiratory: Chest is clear to auscultation bilaterally. Bilateral equal air entry. No rales or rhonchi. Abdomen: Soft, positive bowel sounds. Nontender. No organomegaly. Musculoskeletal: No clubbing or cyanosis. Pulses are 2+. Right forearm has arteriovenous (AV) fistula with thrill and bruit. Central nervous system (HIGH LEAD YARDER). Patient is oriented times two. He follows commands. Psychiatric: He has a normal mood and affect. LAB REVIEW: CBC showed WBC of 4.9, hemoglobin 13.5, platelets of 216. BMP showed sodium 135, potassium 3.9, chloride 97, bicarbonate 29, BUN 35, creatinine is 5.7, albumin 2.7. IMAGING: Head CT scan of the abdomen and pelvis was done. Official report is pending. CURRENT INPATIENT MEDICATIONS: Because of his persistent hypertension and hypertensive encephalopathy, I have made some changes to his medications that includes stopping his clonidine on nondialysis days only and switching him to clonidine patch 0.3 mg every 24 hours. I have changed his hydralazine dose to 50 mg by mouth three times a day. I have added isosorbide 30 mg by mouth twice a day and started him on labetalol 200 mg by mouth twice a day. No other change in the medications today as compared with yesterday. ASSESSMENT/PLAN: 1. End-stage renal disease on hemodialysis. Patient's regular dialysis days are Saturday, , Saturday. He was dialyzed yesterday. Next hemodialysis will be done tomorrow morning as per his regular schedule. 2. Hypertensive urgency. Patient's blood pressures are uncontrolled and this regimen of giving clonidine on nondialysis days only is causing rebound hypertension. I have switched his medications around, changed him clonidine patch, decreased his hydralazine dose, added the isosorbide dinitrate 30 mg by mouth twice a day, continued the amlodipine 10 mg daily, and he has been started on labetalol 200 mg by mouth twice a day. All of the medications have holding parameters on them. 3. Hypertensive encephalopathy. Patient was agitated this morning as well. He is still on direct observation and as mentioned above antihypertensive medications have been changed. 4. Abdominal pain. I was told by the medical team that patient was complaining of abdominal pain. Abdominal CAT scan with contrast report is still pending. Patient will be dialyzed tomorrow according to his regular schedule. No urgent need to do dialysis after the CAT scan.
--- NOTE | 2019-07-15 13:21 | REP ---
CT abdomen and pelvis with IV and oral contrast: History: Abdomen pain. Comparison CT study July 25, 2018. CT contrast dose: 100 mL of intravenous Isovue [address] findings: Preliminary digital disability insurance hearing officer radiograph demonstrates an arterial stent in the distribution of the left external iliac artery. There are surgical clips in the right groin. Bowel gas pattern is unremarkable. The hands are held overlying the upper abdomen. The lung bases show mild bilateral lower lobe fibrosis. The liver and spleen are normal in size, homogeneous in texture. No adrenal lesion is seen. The gallbladder is small and somewhat contracted in appearance. No abnormality is noted in the pancreas. There is mild cortical atrophy of the kidneys and fairly prominent vascular calcification is observed. No retroperitoneal mass or adenopathy is seen. Small and large bowel loops are unremarkable in the upper abdomen. There is a metallic stent in the left external iliac artery and a stent graft is seen in the right. Prostate is enlarged. Urinary bladder is somewhat distended, but otherwise unremarkable. There is left colonic diverticulosis without CT evidence of diverticulitis. Post surgical changes seen in the left groin soft tissues. No abdominal wall defect is seen. The appendix is not seen. Impression: Status post bilateral iliac vascular stent grafts. Distended urinary bladder. Left colonic diverticulosis. Renal cortical atrophy. No acute intra-abdominal abnormality. Electronically Signed by Garry Willingham MD 07/15/2019 02:15 P
[2019-07-15] MEDS: MIRTAZAPINE 15 MG TAB PO SCH (17:06)
[2019-07-15] MEDS: ATORVASTATIN 20 MG TAB PO SCH (17:06)
[2019-07-15] MEDS: CitaloPRAM (CeleXA) 20 MG TAB PO SCH (21:10)
[2019-07-16] VITALS (7 sets, daily range): BP systolic 115–168; BP diastolic 56–75
[2019-07-16 05:12] LABS: HEMATOCRIT 34.4 % (42.0-52.0); HEMOGLOBIN 11.8 g/dl (13.5-17.5); MEAN CORPUSCULAR HEMOGLOBIN 34.4 pg (27.0-33.0); MEAN CORPUSCULAR HGB CONC 34.3 g/dl (32.0-36.5); MEAN CORPUSCULAR VOLUME 100.3 fl (80.0-96.0); PLATELET COUNT, AUTOMATED 222 10^3/uL (150-450); RED BLOOD COUNT 3.43 10^6/uL (4.30-6.10); WHITE BLOOD COUNT 5.5 10^3/uL (4.0-10.0)
[2019-07-16 05:38] LABS: ALBUMIN 2.7 GM/DL (3.2-5.2); BILIRUBIN,TOTAL 0.3 MG/DL (0.2-1.0); CALCIUM LEVEL 8.7 MG/DL (8.8-10.2); CREATININE FOR GFR 7.04 MG/DL (0.70-1.30); GLOMERULAR FILTRATION RATE 8.3 (>49); POTASSIUM SERUM 4.1 MEQ/L (3.5-5.1); TOTAL PROTEIN 6.8 GM/DL (6.4-8.2)
[2019-07-16] MEDS: SLF 3 ML SYR IV SCH ×3 (06:00→21:11)
[2019-07-16] MEDS: GLUCOSE 4 GM CHEW TABLET PO PRN (06:23)
[2019-07-16] MEDS: ALLOPURINOL 100 MG TAB PO SCH (07:09)
[2019-07-16] MEDS: ASPIRIN 81 MG ENTERIC TAB PO SCH (07:09)
[2019-07-16] MEDS: ENOXAPARIN 30 MG/0.3 ML SYR (J1650) SC SCH (08:18)
[2019-07-16] MEDS: FUROSEMIDE 20 MG TAB PO SCH (08:19)
[2019-07-16] MEDS: PANTOPRAZOLE 40MG TAB (PROTONIX) PO SCH ×2 (08:24→21:09)
[2019-07-16] MEDS: CLOPIDOGREL 75 MG TAB PO SCH (08:24)
[2019-07-16] MEDS: DOCUSATE SODIUM 100 MG CAP PO SCH ×2 (08:24→21:10)
[2019-07-16] MEDS: FERROUS SULFATE 325MG TAB PO SCH (08:24)
[2019-07-16] MEDS: THIAMINE 100 MG TAB PO SCH (08:24)
[2019-07-16] MEDS: SPIRONOLACTONE 25 MG TAB PO SCH ×2 (08:25→21:08)
[2019-07-16] MEDS: ISOSORBIDE DIN. (ISORDIL) 30 MG TAB PO SCH ×2 (08:32→21:08)
[2019-07-16] MEDS: amLODIPine 10 MG TAB PO SCH (08:32)
[2019-07-16] MEDS: LABETALOL 200 MG TAB PO SCH ×2 (08:33→21:10)
[2019-07-16] MEDS: HumaLOG INSULIN (NovoLOG) PER UNIT SC SCH ×5 (08:34→21:11)
[2019-07-16] MEDS: LEVEMIR (INSULIN DETEMIR) 1 UNITS/0.01ML SC SCH ×2 (08:34→21:11)
[2019-07-16] MEDS: **hydrALAZINE** 50 MG TAB PO SCH ×3 (09:00→21:09)
--- NOTE | 2019-07-16 09:12 | EEG ---
DATE OF ELECTROENCEPHALOGRAM (EEG): 07/15/2019 REFERRING PHYSICIAN: Dr. George Davila DIAGNOSIS: Altered mental status, rule out nonconvulsive status epilepticus. EEG NUMBER: [id number] HISTORY: Patient is a 69-year-old man, who was admitted at [facility] due to prolonged altered mental status. This EEG was done to rule out epileptic potential. He is currently taking aspirin, Plavix, spironolactone, thiamine, Remeron, clonidine, Lasix, etc. INTERPRETATION: Patient was noted to be in awake and drowsy states during this EEG. Resting awake background rhythm consisted of 8.5 Hz alpha activity measuring 15-40 microvolts in amplitude, which was symmetric and reactive to eye opening. Attenuation of posterior dominant rhythm was seen during transition into drowsiness. Stage I and II sleep were reviewed and were symmetric bilaterally. Hyperventilation could not be performed. Photic stimulation remained unremarkable. Electrocardiogram (EKG) revealed sinus rhythm. No focal, lateralizing or epileptiform abnormalities were seen. No relevant clinical activity was noted. CONCLUSION: This EEG in awake, drowsy states, stage I and II sleep is within normal limits. Significant interval improvement is noted compared to the patient's previous EEG.
[2019-07-16] MEDS ORDERED: LIDOCAINE 1% SDV 5 ML VIAL SQ ONE (10:45)
--- NOTE | 2019-07-16 11:35 | IPNPDOC ---
Date Seen The patient was seen on 07/16/19. Progress Note SUBJECTIVE: Patient was seen and examined today, sitting up comfortably in bed. He was on the phone with his having a conversation with her and states she will be by the hospital later this evening depending on the weather. He states his abdominal pain is currently resolved. He denies any additional complaints OBJECTIVE PHYSICAL EXAMINATION: VITAL SIGNS: See below GENERAL APPEARANCE: The patient is awake, alert, and responds appropriately today and follows directions, appears comfortable in no acute distress HEENT: Atraumatic, normocephalic, PERRLA, EOMI, moist membranes CARDIOVASCULAR: Regular rate and rhythm, normal S1, S2, no murmurs, rubs or gallops. LUNGS: Decreased lung sounds bilaterally throughout, no wheezing, rhonchi, or rales. ABDOMEN: Soft, nondistended, nontender, bowel sounds present, no masses palpated. MUSCULOSKELETAL: Moves all 4 extremities spontaneously EXTREMITIES: 2+ pulses in bilateral radial arteries, unable to palpate pulses in dorsalis pedis or posterior tibial arteries NEUROLOGICAL: No focal deficits appreciated, CN 2-12 grossly intact bilaterally. Alert and oriented to person, place, month, and year PSYCHIATRIC: Mood and affect appropriate LABORATORY DATA, IMAGING STUDIES, MICROBIOLOGY: Please see below. ASSESSMENT AND PLAN: This is a 69-year-old male with end-stage renal disease on dialysis who presents with hypertensive encephalopathy PROBLEMS: 1. Encephalopathy - possibly 2/2 elevated blood pressure (Hypertensive encephalopathy) -Mental status continually shows improvement and patient is better able to converse and follow directions. Repeat EEG showed significant interval improvement compared to initial EEG. Recommendations per neurology. Continue working with physical therapy, occupational therapy, and speech therapy. 2. Hypertensive urgency Improved today, continue the changes made by nephrology yesterday. 3. Pelvic/lower abdominal pain -Negative workup -Improved today, will reevaluate if this recurs 4. Diabetes mellitus type 1 with insulin. Sliding scale insulin, hypoglycemia protocol. Consistent carbohydrate diet. -Switched to twice a day dosing of Levemir considering his ESRD, decreased this to 20 units twice a day since the patient had some hypoglycemia overnight. -Patient was on insulin pump as an outpatient, which according to the , he managed himself. Plan to continue this once the pump is brought back in to see if the patient is able to manage this on his own again. 5. COPD - No evidence of exacerbation Continue home inhalers, he is at his baseline respiratory status 6. ESRD on hemodialysis. Nephrology consult, appreciate their input and recommendations. Hemodialysis per nephrology while inpatient, currently on his outpatient schedule (,,) 7. PVD and CAD Continue home medications including aspirin, atorvastatin, clopidogrel 8. Anemia: chronic disease, hx GI bleeding Continue current supplement, monitor CBC daily. 9. Spinal stenosis, lumbar. pain management while inpatient Home baclofen held in the setting of altered mental status 10. Peripheral neuropathy. No home medication 11. Gout arthropathy. Continue home allopurinol. 12. Unspecified psychiatric history. Continue mirtazapine and citalopram DVT prophylaxis: Lovenox Disposition: Pending blood pressure stabilization, PT/OT, possible placement VS, I&O, 24H, Fishbone Vital Signs/I&O Vital Signs Date Time Temp Pulse Resp B/P (MAP) Pulse Ox O2 Delivery O2 Flow Rate FiO2 07/16/19 08:33 66 135/62 07/16/19 08:00 97.9 20 97 Room Air I&O- Last 24 Hours up to 6 AM 07/16/19 06:00 Intake Total 480 ml Output Total 900 ml Balance -420 ml Laboratory Data 24H LABS Laboratory Tests 2 07/15/19 12:45: Methicillin-Resist S.aureus DNA PCR DETECTEDH 07/15/19 16:59: Bedside Glucose (Misc Panel) 308H 07/15/19 20:53: Bedside Glucose (Misc Panel) 156H 07/16/19 04:50: Nucleated Red Blood Cells % (auto) 0.0, Anion Gap 10, Glomerular Filtration Rate 8.3L, Calcium Level 8.7L, Total Bilirubin 0.3, Aspartate Amino Transf (AST/SGOT) 19, Alanine Aminotransferase (ALT/SGPT) 23, Alkaline Phosphatase 85, Total Protein 6.8, Albumin 2.7L, Albumin/Globulin Ratio 0.66L 07/16/19 06:19: Bedside Glucose (Misc Panel) 34*L 07/16/19 06:57: Bedside Glucose (Misc Panel) 95 07/16/19 07:58: Bedside Glucose (Misc Panel) 135H CBC/BMP Laboratory Tests 07/16/19 04:50 Microbiology Microbiology 07/10/19 Respiratory Virus Panel (PCR) (ADOLFO) - Final, Complete 07/09/19 Blood Culture - Final, Complete NO GROWTH AFTER 5 DAYS 07/09/19 Blood Culture - Final, Complete NO GROWTH AFTER 5 DAYS GME ATTESTATION GME ATTESTATION My faculty preceptor for this patient encounter was physically present during the encounter and was fully available. All aspects of the patient interview, examination, medical decision making process, and medical care plan development were reviewed and approved by the faculty preceptor. The faculty preceptor is aware and concurs with the plan as stated in the body of this note and will attest to such by his/her cosignature. ATTENDING NOTE I, Timo May, have independently examined this patient and performed my own physical exam, as well as reviewed the documentation and edited where necessary. I have discussed in detail with the resident / student the findings and plan of treatment as documented by the resident / student and edited their note. I agree with their findings and treatment plan and have edited their documentation. I will continue to follow the patient during this hospital stay. HOLLIS MALDONADO PGY-1 Jul 16, 2019 11:34 TIMO MAY MD Jul 16, 2019 13:22
--- NOTE | 2019-07-16 12:39 | IPN ---
DATE: 07/16/2019 SUBJECTIVE: Patient seen and examined this morning in dialysis unit. Patient's mentation is significantly improved from yesterday. He is responding much more appropriately to questions. He knew who he was. He got the day of the week incorrect, knew the month, the year, who the president was and was much more responsive to questioning. His blood pressures have also significantly improved after changing his regimen yesterday. He had a CT of his abdomen and pelvis yesterday and that showed a fairly full bladder. However, when questioned, he states he is urinating fine on his own and did not feel like he had any residual fluid. OBJECTIVE: VITALS: Temperature 97.9, pulse 66, respiratory rate 20, blood pressure 135/62, saturating 97% on room air. He put out 900 mL of fluid yesterday. PHYSICAL EXAMINATION: GENERAL: Patient is awake, alert, oriented times three laying in bed in no acute distress. HEENT: Extraocular muscles intact, pupils equal, round, and reactive to light. Mucous membranes are moist. NECK: Supple. There is no jugular venous distention (JVD). CARDIOVASCULAR: Regular rate and rhythm. Normal S1, S2. No edema bilateral lower extremities. RESPIRATORY: Clear to auscultation bilaterally. No wheeze, crackles, rhonchi. ABDOMEN: Soft, non-tended. Nondistended with positive bowel sounds. MUSCULOSKELETAL: No clubbing, cyanosis or edema. Pulses are 2+. Right arteriovenous fistula is functioning well. NEUROLOGIC: Patient is alert and oriented times three and following commands appropriately. His mentation is back to baseline. No focal neural deficits. PSYCHIATRIC: Normal mood and affect. LAB REVIEW: White blood cell count of 5.5, hemoglobin 11.8, hematocrit 34.4, platelet count 222. Sodium 134, potassium 4.1, chloride 97, CO2 27, BUN 49, creatinine 7.04, glucose 51, calcium 8.7, AST 19, ALT 23, alkaline phosphatase 85, protein 6.8, albumin 2.7. CURRENT MEDICATIONS: Patient's insulin has been changed by primary team from 20 units twice a day subcu of the Levemir to 20 units subcu daily. We will continue his new antihypertensive regimen of hydralazine 50 mg by mouth three times a day, isosorbide dinitrate 30 mg by mouth twice a day labetalol 200 mg by mouth twice a day, clonidine patch 0.3 mg every 24 hours, spironolactone 25 mg by mouth twice a day. ASSESSMENT/PLAN: 1. End-stage renal disease (ESRD) on hemodialysis: Patient's regular dialysis days are Saturday, , Saturday. He is dialyzed today. Next, hemodialysis will be scheduled for Saturday. 2. Hypertensive urgency: Patient's blood pressures are significantly improved from yesterday and we will continue this current regimen as stated under his current inpatient medications. 3. Hypertensive encephalopathy: This appears to have resolved almost completely this morning. Above antihypertensive medication will be continued. 4. Abdominal pain: This appears to have resolved as he did not complain of it this morning. On his CT scan, it did show a distended urinary bladder, left colonic diverticulosis, renal cortical atrophy with no acute intra-abdominal abnormalities. There is an order to have the patient bladder scanned every 6 hours to ensure that his bladder does not remain distended.
[2019-07-16] MEDS: ATORVASTATIN 20 MG TAB PO SCH (17:09)
[2019-07-16] MEDS: MIRTAZAPINE 15 MG TAB PO SCH (17:10)
[2019-07-16] MEDS: CitaloPRAM (CeleXA) 20 MG TAB PO SCH (21:09)
[2019-07-17] VITALS: BP 136/70
[2019-07-17 04:00] VITALS: BP 126/66
[2019-07-17 05:24] LABS: HEMATOCRIT 31.6 % (42.0-52.0); HEMOGLOBIN 10.5 g/dl (13.5-17.5); MEAN CORPUSCULAR HEMOGLOBIN 33.8 pg (27.0-33.0); MEAN CORPUSCULAR HGB CONC 33.2 g/dl (32.0-36.5); MEAN CORPUSCULAR VOLUME 101.6 fl (80.0-96.0); PLATELET COUNT, AUTOMATED 228 10^3/uL (150-450); RED BLOOD COUNT 3.11 10^6/uL (4.30-6.10); WHITE BLOOD COUNT 4.5 10^3/uL (4.0-10.0)
[2019-07-17 05:58] LABS: ALBUMIN 2.4 GM/DL (3.2-5.2); BILIRUBIN,TOTAL 0.3 MG/DL (0.2-1.0); CALCIUM LEVEL 8.6 MG/DL (8.8-10.2); CREATININE FOR GFR 4.81 MG/DL (0.70-1.30); GLOMERULAR FILTRATION RATE 12.9 (>49); TOTAL PROTEIN 6.2 GM/DL (6.4-8.2)
[2019-07-17] MEDS: SLF 3 ML SYR IV SCH ×2 (06:24→15:11)
[2019-07-17] MEDS: GLUCOSE 4 GM CHEW TABLET PO PRN (06:54)
[2019-07-17] MEDS: HumaLOG INSULIN (NovoLOG) PER UNIT SC SCH ×2 (07:30→13:59)
[2019-07-17 08:00] VITALS: BP 150/67
[2019-07-17] MEDS ORDERED: LEVEMIR (INSULIN DETEMIR) 1 UNITS/0.01ML SC SCH (09:00)
[2019-07-17 09:42] VITALS: BP 150/67
[2019-07-17] MEDS: LABETALOL 200 MG TAB PO SCH (09:42)
[2019-07-17] MEDS: ASPIRIN 81 MG ENTERIC TAB PO SCH (09:43)
[2019-07-17] MEDS: ISOSORBIDE DIN. (ISORDIL) 30 MG TAB PO SCH (09:43)
[2019-07-17] MEDS: CLOPIDOGREL 75 MG TAB PO SCH (09:43)
[2019-07-17] MEDS: SPIRONOLACTONE 25 MG TAB PO SCH (09:43)
[2019-07-17] MEDS: amLODIPine 10 MG TAB PO SCH (09:43)
[2019-07-17] MEDS: PANTOPRAZOLE 40MG TAB (PROTONIX) PO SCH (09:44)
[2019-07-17] MEDS: FUROSEMIDE 20 MG TAB PO SCH (09:44)
[2019-07-17] MEDS: CALCITRIOL 0.25 MCG CAP (S0169) PO SCH (09:44)
[2019-07-17] MEDS: THIAMINE 100 MG TAB PO SCH (09:44)
[2019-07-17] MEDS: DOCUSATE SODIUM 100 MG CAP PO SCH (09:44)
[2019-07-17] MEDS: FERROUS SULFATE 325MG TAB PO SCH (09:44)
[2019-07-17] MEDS: ALLOPURINOL 100 MG TAB PO SCH (09:45)
[2019-07-17] MEDS: **hydrALAZINE** 50 MG TAB PO SCH (09:45)
[2019-07-17] MEDS: ENOXAPARIN 30 MG/0.3 ML SYR (J1650) SC SCH (09:45)
[2019-07-17] MEDS ORDERED: FURO20TA2 PO (10:14)
[2019-07-17] MEDS ORDERED: ISOS30TAB PO (10:14)
[2019-07-17] MEDS ORDERED: CLON0.3D8 TOP (10:14)
[2019-07-17] MEDS ORDERED: HYDR50TA PO (10:14)
[2019-07-17] MEDS ORDERED: LABE20TAB PO (10:14)
[2019-07-17] MEDS ORDERED: AMLO10TA5 PO (10:14)
--- NOTE | 2019-07-17 10:53 | DS.PDOC ---
Discharge Summary General Date of Admission Jul 09, 2019 at 17:02 Date of Discharge 07/17/2019 Primary Care Physician: Armando Cottrell MD Attending Physician: TIMO JAQUEZ MD Specialist/Consultants Involve: EDWIN MUNGUIA MD Specialist/Consultants Involve Armando Cottrell Discharge Summary PROCEDURES PERFORMED DURING STAY: None. ADMITTING DIAGNOSES / DISCHARGE DIAGNOSES: 1. Encephalopathy - likely 2/2 hypertensive encephalopathy, possibly 2/2 medications, possibly secondary to stroke, 2. Hypertensive urgency. 3. Diabetes mellitus type 1 with insulin pump, hyperglycemia and hypoglycemia 4. COPD 5. ESRD on hemodialysis. 6. PVD 7. CAD 8. Anemia of chronic disease. 9. Lumbar spinal stenosis. 10. Peripheral neuropathy. 11. Gouty arthropathy. 12. Unspecified psychiatric disorder COMPLICATIONS/CHIEF COMPLAINT: Confusion HISTORY OF PRESENT ILLNESS: Jonh Norwood is a 69-year-old male who presented to the emergency room from dialysis after 1 day of altered mental status noticed by his as well as staff at the outpatient dialysis center. Unable to obtain any history from the patient as he does not reliably answer questions. A history is obtained from the patient's who was with him today. She states that yesterday the patient did visit the emergency room for some neck pain and was given tizanidine and discharged home. states she did notice some mild changes in her 's mental status yesterday that she was not concerned about. However, she states that when her got up this morning he was unsteady on his feet and had decreased focus. She also notes that he couldn't figure out. 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 She states that she brought him to his regularly scheduled dialysis appointment because she thought this would help. However, the patient did not improve and dialysis staff thought that he needed to be further evaluated at the emergency department. The states that her has recently been complaining of increased shortness of breath over the past few months, especially with exertion. She believes this was related to his COPD. The denies any additional new complaints from the patient. HOSPITAL COURSE: Patient was admitted to the hospital for further evaluation and treatment. Blood pressure was found to be elevated in the 200s/100s. Neurology was consulted for his altered mental status. Stroke workup was negative. The EEG did show some abnormalities. LP was considered, but suspicion for infectious etiology was low on this was not performed. All medications that could impact his mental status were held including tizanidine as well as baclofen. His blood pressure was treated with increased doses of medications. However, continued to remain elevated in the 180s/80s. Nephrology was consult for dialysis and continue with the patient's normal home dialysis schedule. Nephrology also contributed changes to his blood pressure medication regimen. Subsequently, his blood pressure improved daily and became stable in the 130s/70s. For management of his type 1 diabetes, he was kept on sliding scale insulin and additionally started on basal insulin for better overall control. During his admission he also developed some pelvic pain and workup revealed a distended bladder. He was able to urinate on his own without significant post void residual volume. Repeat EEG showed significant interval improvement compared to the initial EEG. The patient also worked with physical therapy, occupational Therapy, and speech therapy. He showed significant improvement in mental status and overall functioning during his admission. It was suggested by PT/OT that he continue rehabilitation in the acute rehabilitation unit. Upon discharge, he does not have all of the equipment for his insulin pump and will need to continue on sliding scale for the time being while in ARU. The missing parts to his pump will be ordered and he can be restarted on this when available. On the day of discharge, the patient was found to be stable and safe for discharge to ARU. DISCHARGE MEDICATIONS: Please see below. ALLERGIES: Please see below. PHYSICAL EXAMINATION ON DISCHARGE: VITAL SIGNS: Please see below. GENERAL APPEARANCE: The patient is awake, alert, and responds appropriately today and follows directions, appears comfortable in no acute distress HEENT: Atraumatic, normocephalic, PERRLA, EOMI, moist membranes CARDIOVASCULAR: Regular rate and rhythm, normal S1, S2, no murmurs, rubs or gallops. LUNGS: Decreased lung sounds bilaterally throughout, no wheezing, rhonchi, or rales. ABDOMEN: Soft, nondistended, nontender, bowel sounds present, no masses palpated. MUSCULOSKELETAL: Moves all 4 extremities spontaneously EXTREMITIES: 2+ pulses in bilateral radial arteries, unable to palpate pulses in dorsalis pedis or posterior tibial arteries NEUROLOGICAL: No focal deficits appreciated, CN 2-12 grossly intact bilaterally. Alert and oriented to person, place, month, and year PSYCHIATRIC: Mood and affect appropriate LABORATORY DATA: Please see below. IMAGING: Head CT 10/31/19: No acute intracranial hemorrhage. CXR 06/24/19: Slight blunting of the right lateral pleural angle and discoid atelectasis in the right base. Otherwise no acute disease. Brain MRA 07/09/19: 1. No acute abnormality. 2. Chronic findings as discussed above. Brain MRI 07/09/19: 1. No acute intracranial abnormality. 2. Chronic findings as discussed above. CT abd/pelvis 07/15/2019: Status post bilateral iliac vascular stent grafts. Distended urinary bladder. Left colonic diverticulosis. Renal cortical atrophy. No acute intra-abdominal abnormality. PROGNOSIS: Fair ACTIVITY: As tolerated. DIET: Consistent carbohydrate DISCHARGE PLAN: To acute rehabilitation unit DISCHARGE INSTRUCTIONS: 1. Follow-up with your PCP in 7-10 days 2. Please take all her medications as prescribed. 3. Please follow up as scheduled with neurology and nephrology 4. If your symptoms return or your condition worsens, please call your PCP or return to the ED for further evaluation. ITEMS TO FOLLOWUP ON ON OUTPATIENT: 1. Altered mental status secondary to hypertensive urgency. 2. Blood pressure control. 3. Continued use of an insulin pump. 4. Continued regular dialysis. DISCHARGE CONDITION: Stable. TIME SPENT ON DISCHARGE: 35 minutes. Vital Signs/I&Os Vital Signs Date Time Temp Pulse Resp B/P (MAP) Pulse Ox O2 Delivery O2 Flow Rate FiO2 07/17/19 09:42 60 150/67 07/17/19 08:00 97.2 18 95 07/17/19 04:00 Room Air I&O- Last 24 Hours up to 6 AM 07/17/19 06:00 Intake Total 1370 ml Output Total 1650 ml Balance -280 ml Laboratory Data Labs 24H Laboratory Tests 2 07/16/19 13:16: Bedside Glucose (Misc Panel) 208H 07/16/19 16:48: Bedside Glucose (Misc Panel) 352H 07/16/19 20:57: Bedside Glucose (Misc Panel) 352H 07/17/19 04:53: Nucleated Red Blood Cells % (auto) 0.0, Anion Gap 6L, Glomerular Filtration Rate 12.9L, Calcium Level 8.6L, Total Bilirubin 0.3, Aspartate Amino Transf (AST/SGOT) 17, Alanine Aminotransferase (ALT/SGPT) 21, Alkaline Phosphatase 73, Total Protein 6.2L, Albumin 2.4L, Albumin/Globulin Ratio 0.63L 07/17/19 06:42: Bedside Glucose (Misc Panel) 40L 07/17/19 07:40: Bedside Glucose (Misc Panel) 134H 07/17/19 09:38: Bedside Glucose (Misc Panel) 244H CBC/BMP Laboratory Tests 07/17/19 04:53 FSBS Laboratory Tests Test 07/16/19 13:16 07/16/19 16:48 07/16/19 20:57 07/17/19 06:42 Range/Units Bedside Glucose (Misc Panel) 208 352 352 40 80-115 MG/DL Test 07/17/19 07:40 07/17/19 09:38 Range/Units Bedside Glucose (Misc Panel) 134 244 80-115 MG/DL Microbiology Microbiology 07/10/19 Respiratory Virus Panel (PCR) (ADOLFO) - Final, Complete 07/09/19 Blood Culture - Final, Complete NO GROWTH AFTER 5 DAYS 07/09/19 Blood Culture - Final, Complete NO GROWTH AFTER 5 DAYS Discharge Medications Scheduled Allopurinol (Allopurinol) 100 Mg Tablet, 100 MG PO DAILY, (Reported) Amlodipine Besylate (Amlodipine Besylate) 10 Mg Tablet, 10 MG PO DAILY Aspirin (Aspirin EC) 81 Mg Tab, 81 MG PO DAILY, (Reported) Atorvastatin Calcium (Atorvastatin Calcium) 80 Mg Tab, 80 MG PO QPM, (Reported) 1600 Calcium Carbonate (Calcium) 600 Mg Tab, 600 MG PO QPM, (Reported) 1600 Citalopram Hydrobromide (Citalopram HBr) 40 Mg Tab, 40 MG PO DAILY, (Reported) Clonidine (Clonidine) 0.3 Mg Patch.tdwk, 1 EA TOP Q7D@09 Clopidogrel Bisulfate (Clopidogrel) 75 Mg Tab, 75 MG PO DAILY, (Reported) Ergocalciferol (Vitamin D2) (Drisdol) 50,000 Unit Cap, 50,000 UNIT PO QWEEK, (Reported) WEDNESDAYS Ferrous Sulfate (Ferrous Sulfate) 325 Mg Tablet.dr, 325 MG PO DAILY, (Reported) Furosemide (Furosemide) 20 Mg Tablet, 40 MG PO DAILY Hydralazine HCl (Hydralazine HCl) 50 Mg Tablet, 50 MG PO TID Insulin Lispro (Humalog) 100 Unit/1 Ml Cartridge, 1 DOSE SC ASDIRECTED, (Reported) VIA INSULIN PUMP NOT TO EXCEED 100 UNITS Isosorbide Dinitrate (Isosorbide Dinitrate) 30 Mg Tablet, 30 MG PO BID Labetalol HCl (Labetalol HCl) 200 Mg Tablet, 200 MG PO BID Mirtazapine (Remeron) 15 Mg Tablet, 45 MG PO QPM, (Reported) @1600, TAKE 1 45MG TAB. Pantoprazole Sodium (Pantoprazole Sodium) 40 Mg Tab, 40 MG PO BID, (Reported) Spironolactone (Spironolactone) 25 Mg Tab, 25 MG PO BID, (Reported) Thiamine HCl (Thiamine HCl) 100 Mg Tablet, 100 MG PO DAILY, (Reported) Scheduled PRN Dextrose (Glucose) 4 Gm Tab.chew, 4 GM PO for LOW BLOOD SUGAR, (Reported) Hydrocodone/Acetaminophen (Hydrocodone-Acetamin 5-325 mg) 1 Each Tablet, 1 TAB PO Q6H PRN for PAIN, (Reported) Ipratropium/Albuterol Sulfate (Combivent Respimat 20-100 Mcg) 4 Gm Mist.inhal, 2 PUFF INH Q4H PRN for SOB/WHEEZING, (Reported) Allergies Coded Allergies: Quinolones (Verified Allergy, Mild, RASH, 02/16/19) CHARLES Inhibitors (Verified Adverse Reaction, Intermediate, ARF, 02/16/19) NSAIDS (Non-Steroidal Anti-Inflamma (Verified Adverse Reaction, Intermediate, KIDNEY DAMAGE, 02/16/19) celecoxib (Verified Adverse Reaction, Intermediate, KIDNEY DAMAGE, 02/16/19) gabapentin (Verified Adverse Reaction, Intermediate, personality changes, 02/17/19) ibuprofen (Verified Adverse Reaction, Intermediate, KIDNEY DAMAGE, 02/16/19) lisinopril (Verified Adverse Reaction, Intermediate, RENAL FAILURE, 02/16/19) sulfamethoxazole (Verified Adverse Reaction, Intermediate, RENAL FAILURE, 02/16/19) trimethoprim (Verified Adverse Reaction, Intermediate, RENAL FAILURE, 02/16/19) cefazolin (Verified Adverse Reaction, Mild, DIZZINESS, 02/16/19) cyclobenzaprine (Verified Adverse Reaction, Mild, DIZZINESS, 02/16/19) hydrochlorothiazide (Verified Adverse Reaction, Mild, DIZZINESS, 02/16/19) triamterene (Verified Adverse Reaction, Mild, DIZZINESS, 02/16/19) GME ATTESTATION GME ATTESTATION My faculty preceptor for this patient encounter was physically present during the encounter and was fully available. All aspects of the patient interview, examination, medical decision making process, and medical care plan development were reviewed and approved by the faculty preceptor. The faculty preceptor is aw are and concurs with the plan as stated in the body of this note and will attest to such by his/her cosignature. ATTENDING NOTE I, Timo Jaquez, have independently examined this patient and performed my own physical exam, as well as reviewed the documentation and edited where necessary. I have discussed in detail with the resident / student the findings and plan of treatment as documented by the resident / student and edited their note. I agree with their findings and treatment plan and have edited their documentation. I will continue to follow the patient during this hospital stay. Time spent on discharge 35 minutes HOLLIS MALDONADO PGY-1 Jul 17, 2019 10:53 TIMO JAQUEZ MD Jul 17, 2019 14:15
[2019-07-17 12:00] VITALS: BP 148/62
[2019-07-17] MEDS ORDERED: DARBEPOETIN 100 MCG/0.5 ML *DIALYSIS* SYRINGE (J0882) IV SCH (12:45)
--- NOTE | 2019-07-17 13:02 | IPN ---
DATE OF SERVICE: 07/17/2019 SUBJECTIVE: The patient was seen and examined at the bedside today morning. He is much more awake and alert today. He reports that he felt drained after dialysis yesterday and he was not able to sleep at night. However, he denies any chest pain, headache or leg cramps. He reports that he is feeling weak and he is going to be discharged to rehab today. OBJECTIVE: Vital signs: Temperature is 97.2 degrees Fahrenheit, blood pressure 150/67, pulse is 60, respiratory rate of 18, saturating 95% on room air. Intake and output: Ultrafiltration with hemodialysis was 1.5 liters yesterday. Weight in the bed scale is 68.9 kg. PHYSICAL EXAMINATION: General: The patient is awake, alert, oriented times three, laying in bed, in no apparent distress. Head and neck exam: Extraocular muscles intact. Pupils equally round and reactive to light. Mucous membranes are moist. Neck is supple. There is no jugular venous distention (JVD). Cardiovascular: S1, S2, regular rate. No edema of the bilateral lower extremities. Respiratory: Chest is clear to auscultation bilaterally. Bilateral equal air entry. No rales or rhonchi. Abdomen is soft. Positive bowel sounds. Nontender. No organomegaly. Musculoskeletal: No clubbing or cyanosis. Pulses are 2+. Central nervous system (IN [employer]OR): No focal deficit. Power is 5/5 in all extremities. Psychiatric: Patient is much more awake and alert and has a normal mood. LAB REVIEW: CBC showed WBC 4.5, hemoglobin 10.5, platelets are 228. BMP showed sodium 137, potassium 4, chloride 99, bicarbonate 32, BUN 31, creatinine is 4.8. CURRENT INPATIENT MEDICATIONS: The patient's medications were all reviewed by me. His insulin dose has been changed to 10 units subcu twice a day. No other change in the medications today as compared with yesterday. ASSESSMENT AND PLAN: 1. End-stage renal disease on hemodialysis. The patient's regular dialysis days Saturday, , Saturday. He was dialyzed yesterday. Next hemodialysis will be tomorrow as per his regular schedule. 2. Renovascular hypertension. Blood pressure is significantly controlled with the current regimen. He can be discharged on the current dose of hydralazine, labetalol, isosorbide, and clonidine patch along with spironolactone. 3. Hypertensive encephalopathy. The patient's mental status is significantly better. He is going to get further rehabilitation in the inpatient rehab unit. 5. Anemia in end-stage renal disease. Hemoglobin is 10.5, which is slowly dropping. I am going to start the patient on Aranesp with dialysis.
== END 2019-07-17 15:11 | DRG 77 ==
LOC: M ED 14:53 → M ED INP 17:02 → M PCU 21:13
PROVIDERS: ADMIT Internal Medicine; ATTEND Internal Medicine
PROC: 5A1D70Z Performance of Urinary Filtration, Intermittent, Less than 6 Hours Per Day (ICD-10-PCS; principal; 2019-07-11)
DX: I67.4 Hypertensive encephalopathy (principal); N18.6 End stage renal disease; I12.0 Hypertensive chronic kidney disease with stage 5 chronic kidney disease or end stage renal disease; R41.82 Altered mental status, unspecified; J44.9 Chronic obstructive pulmonary disease, unspecified; E10.22 Type 1 diabetes mellitus with diabetic chronic kidney disease; E10.51 Type 1 diabetes mellitus with diabetic peripheral angiopathy without gangrene; M48.061 Spinal stenosis, lumbar region without neurogenic claudication; I25.10 Atherosclerotic heart disease of native coronary artery without angina pectoris; E10.42 Type 1 diabetes mellitus with diabetic polyneuropathy; M10.9 Gout, unspecified; E78.5 Hyperlipidemia, unspecified; Z99.2 Dependence on renal dialysis; Z98.41 Cataract extraction status, right eye; Z98.42 Cataract extraction status, left eye; Z98.62 Peripheral vascular angioplasty status; Z87.891 Personal history of nicotine dependence; I16.0 Hypertensive urgency; D63.1 Anemia in chronic kidney disease; F29 Unspecified psychosis not due to a substance or known physiological condition; Z79.82 Long term (current) use of aspirin; Z79.4 Long term (current) use of insulin; Z79.899 Other long term (current) drug therapy; Z88.1 Allergy status to other antibiotic agents; Z88.2 Allergy status to sulfonamides; Z88.6 Allergy status to analgesic agent; Z88.8 Allergy status to other drugs, medicaments and biological substances; Z89.421 Acquired absence of other right toe(s); E87.6 Hypokalemia; R10.2 Pelvic and perineal pain; N32.89 Other specified disorders of bladder

== ENCOUNTER 2019-08-02 15:43 | Emergency (ER) | payer MEDICARE ==
[~2019-08-02] VITALS: Ht 165.1 cm; Wt 72.7 kg
[~2019-08-02 15:43] MED LIST changes: +ALDA25TA2 PO; +ALLO10TA PO; +CATA0.2T PO; +CLON0.3D8 TOP; +COMBAER6 INH; +FURO20TA2 PO; +FURO40TA2 PO; +HYDR50TA PO; +ISOS30TAB PO; +LABE20TAB PO; +REME15TA PO
[2019-08-02] MEDS ORDERED: DEXTROSE 50% 50 ML SYRINGE As Ordered ONE (16:23)
[2019-08-02] MEDS ORDERED: DEXTROSE 50% 50 ML SYRINGE IV STA (16:27)
[2019-08-02] MEDS ORDERED: D10W 500 ML IV SCH (16:45)
[2019-08-02 16:51] LABS: VENOUS BASE EXCESS 5.6 (-2.0-2.0); VENOUS HCO3 31.4 MEQ/L (23.0-27.0); VENOUS O2 SATURATION 79.2 % (60.0-80.0); VENOUS PARTIAL PRESSURE CO2 51.2 mmHg (38.0-50.0); VENOUS PARTIAL PRESSURE O2 45.1 mmHg (30.0-50.0); VENOUS PH 7.405 UNITS (7.330-7.430); VENOUS STANDARD HCO3 29.1 MEQ/L; VENOUS TOTAL CO2 32.9 MEQ/L (24.0-28.0)
[2019-08-02 16:56] LABS: BASO % 0.5 % (0.0-1.0); EOS # 0.1 10^3/uL (0.0-0.5); HEMATOCRIT 32.8 % (42.0-52.0); HEMOGLOBIN 10.7 g/dl (13.5-17.5); LYMPH # 0.5 10^3/uL (1.5-5.0); LYMPH % 8.6 % (24.0-44.0); MEAN CORPUSCULAR HEMOGLOBIN 34.5 pg (27.0-33.0); MEAN CORPUSCULAR HGB CONC 32.6 g/dl (32.0-36.5); MEAN CORPUSCULAR VOLUME 105.8 fl (80.0-96.0); MONO # 0.4 10^3/uL (0.0-0.8); MONO % 7.3 % (0.0-5.0); NEUTROPHILS # 4.9 10^3/uL (1.5-8.5); NEUTROPHILS % 80.9 % (36.0-66.0); PLATELET COUNT, AUTOMATED 167 10^3/uL (150-450); WHITE BLOOD COUNT 6.1 10^3/uL (4.0-10.0)
[2019-08-02 17:21] LABS: HEMOGLOBIN A1c 8.2 %
[2019-08-02 19:17] LABS: VENOUS HCO3 27.8 MEQ/L (23.0-27.0); VENOUS O2 SATURATION 79.8 % (60.0-80.0); VENOUS PARTIAL PRESSURE CO2 43.5 mmHg (38.0-50.0); VENOUS PARTIAL PRESSURE O2 45.6 mmHg (30.0-50.0); VENOUS PH 7.424 UNITS (7.330-7.430); VENOUS STANDARD HCO3 26.8 MEQ/L; VENOUS TOTAL CO2 29.2 MEQ/L (24.0-28.0)
[2019-08-02 20:46] VITALS: BP 187/148
== END 2019-08-02 20:57 | disposition home or self-care (01) ==
LOC: M ED 15:43
DX: E16.2 Hypoglycemia, unspecified (principal); I12.0 Hypertensive chronic kidney disease with stage 5 chronic kidney disease or end stage renal disease; J44.9 Chronic obstructive pulmonary disease, unspecified; N18.6 End stage renal disease; Z99.2 Dependence on renal dialysis; Z79.899 Other long term (current) drug therapy; Z79.82 Long term (current) use of aspirin; Z88.1 Allergy status to other antibiotic agents; Z88.2 Allergy status to sulfonamides; Z88.8 Allergy status to other drugs, medicaments and biological substances

== ENCOUNTER 2020-01-19 06:49 | Outpatient (CLI) | payer MEDICARE ==
[~2020-01-19] VITALS: Ht 165.1 cm; Wt 72.7 kg
[2020-01-19] VITALS (9 sets, daily range): BP systolic 114–170; BP diastolic 53–75
[2020-01-19] MEDS ORDERED: ACETAMINOPHEN 500 MG TAB PO ONE (07:00)
[2020-01-19] MEDS ORDERED: diphenhydrAMINE 25MG CAP PO ONE (07:00)
== END 2020-01-19 12:20 | disposition home or self-care (01) ==
LOC: M INFU 06:49
PROVIDERS: ATTEND Internal Medicine Nephrology
DX: N18.6 End stage renal disease (principal); D63.1 Anemia in chronic kidney disease; Z88.8 Allergy status to other drugs, medicaments and biological substances
CPT/HCPCS: 36430; 36592; 86850; 86900; 86901; 86920; P9016

== ENCOUNTER 2020-03-07 19:09 | Inpatient (IN) | payer MEDICARE ==
[~2020-03-07] VITALS: Ht 167.6 cm; Wt 71.0 kg
[2020-03-07 20:12] LABS: BASO % 0.3 % (0.0-1.0); EOS # 0.1 10^3/uL (0.0-0.5); EOS % 0.8 % (0.0-3.0); HEMATOCRIT 31.6 % (42.0-52.0); HEMOGLOBIN 10.6 g/dl (13.5-17.5); LYMPH # 0.6 10^3/uL (1.5-5.0); LYMPH % 6.4 % (24.0-44.0); MEAN CORPUSCULAR HEMOGLOBIN 34.4 pg (27.0-33.0); MEAN CORPUSCULAR HGB CONC 33.5 g/dl (32.0-36.5); MEAN CORPUSCULAR VOLUME 102.6 fl (80.0-96.0); MONO % 9.8 % (0.0-5.0); NEUTROPHILS # 8.1 10^3/uL (1.5-8.5); PLATELET COUNT, AUTOMATED 175 10^3/uL (150-450); RED BLOOD COUNT 3.08 10^6/uL (4.30-6.10); WHITE BLOOD COUNT 9.9 10^3/uL (4.0-10.0)
[2020-03-07 20:25] LABS: INR 1.06; PROTHROMBIN TIME 13.5 SECONDS (11.8-14.0)
[2020-03-07 20:26] LABS: PARTIAL THROMBOPLASTIN TIME 36.4 SECONDS (25.0-38.4)
[2020-03-07 20:28] LABS: D-DIMER QUANT 3242.71 ng/ml (<500)
[2020-03-07 20:44] LABS: BLOOD UREA NITROGEN 66 MG/DL (7-18); CALCIUM LEVEL 7.7 MG/DL (8.8-10.2); CARBON DIOXIDE LEVEL 26 MEQ/L (21-32); CHLORIDE LEVEL 96 MEQ/L (98-107); CPK CREATINE PHOSPHOKINASE 107 U/L (39-308); CREATININE FOR GFR 9.23 MG/DL (0.70-1.30); GLOMERULAR FILTRATION RATE 6.1 (>49); GLUCOSE, FASTING 279 MG/DL (70-100); LDH LACTATE DEHYDROGENASE 218 U/L (87-241); MB/CK RELATIVE INDEX 1.87 (< OR =4); POTASSIUM SERUM 3.9 MEQ/L (3.5-5.1); SODIUM LEVEL 132 MEQ/L (136-145); TROPONIN I < 0.02 NG/ML (< 0.10)
--- NOTE | 2020-03-07 20:50 | REPVR ---
PROCEDURE INFORMATION: Exam: US Duplex Left Lower Extremity Veins, Limited Exam date and time: 03/07/2020 8:36 PM Age: 69 years old Clinical indication: Pain; Leg, upper and leg, lower; Left; Prior surgery; Surgery date: 6+ months; Surgery type: Arterial bypass; Additional info: Pain/fullness TECHNIQUE: Imaging protocol: Real-time Duplex ultrasound of the Left Lower Extremity with 2-D soriano scale, color Doppler flow and spectral waveform analysis with image documentation. Limited exam focused on the left lower extremity veins. COMPARISON: No relevant prior studies available. FINDINGS: Left deep veins: Unremarkable. The common femoral, femoral, proximal profunda femoral and popliteal veins are patent without thrombus. Normal Doppler waveforms. Normal compressibility and/or augmentation response. Left superficial veins: Unremarkable. Saphenofemoral junction is patent without thrombus. Soft tissues: Unremarkable. IMPRESSION: No DVT of the left lower extremity veins. Electronically signed by: Aj Rice On 03/07/2020 20:50:10 PM
[2020-03-07] MEDS ORDERED: methylPREDNISolone INJ 125 MG/2 ML VIAL (J2930) IV ONE (22:00)
[2020-03-07] MEDS ORDERED: IPRATROPIUM 0.5MG/ALBUTEROL 2.5MG INH SOL UD 3ML (DUONEB) NEB PRN (22:00)
[2020-03-07] MEDS ORDERED: ACETAMINOPHEN TAB 650MG DOSE (2X325MG) PO PRN (22:00)
--- NOTE | 2020-03-07 22:09 | HPEPDOC ---
[facility] Medical History & Physical Date of Admission Mar 07, 2020 Date of Service: Mar 07, 2020 History and Physical CHIEF COMPLAINT: SOB HISTORY OF PRESENT ILLNESS: Patient is 69M with PMH ESRD on HD TThS, CAD, PVD, Gout, psych/mood disorder, COPD, IDDM on insulin pump, gout presents to the ER with complains of worsening SOB. He reports worsening symptoms today associated with cough and chills along with mild pain in the L. calf but otherwise no other complaints including any chest pain, fever, nausea, vomiting. He suspect it may be due to the usual lapse between his HD sessions. He normally gets HD outpatient with Dr. Cottrell. PAST MEDICAL HISTORY: Refer to HPI PAST SURGICAL HISTORY: R. fem/pop bypass cataract surgery AV fistula SOCIAL HISTORY: Former smoker. Social alcohol use and denies any drug use. FAMILY HISTORY: None reported. Reviewed. ALLERGIES: Please see below. REVIEW OF SYSTEMS: 10 point review of system negative except as stated in HPI HOME MEDICATIONS: Please see below. PHYSICAL EXAMINATION: General: Mild distress, Alert Eyes: Normal sclera, EOMI HENT: Atraumatic Cardiovascular: Normal rate, normal rhythm. Pulmonary: Minimal bibasilar rales, no wheezing GI: Soft, nontender, nondistended Skin: Warm and dry Neuro: CN grossly intact. No focal deficits. Generalized weakness. Psych: oriented x 3 LABORATORY DATA: See below. IMAGING: CXR- No significant abnormalities noted per self. F/u official report. LLE doppler- no evidence of DVT. MICROBIOLOGY: Please see below. ASSESSMENT AND PLAN: 1. SOB - Suspect 2/2 period between his last HD session on saturday, very minimal rales in bibasilar bases. No significant evidence of volume overload on exam. No significant wheezing either. - Will treat with nebs and just one dose of IV solumedrol to see how he responds. - Nephrology consulted for HD in AM. 2. ESRD on HD - TThS. Last session on saturday. Nephro consulted for HD tomorrow. - no significant electrolyte derangements. 3. PVD - c/w ASA, Plavix, statin. 4. HTN - BP elevated in 170s at this time. - Resume all home meds. Hopefully will improve further post HD. 5. CAD - No active chest pain or problems noted at this time. - c/w ASA and statin. 6. COPD - low suspicion for an acute exacerbation. - Will only give one dose of IV steroid at this time. C/w nebs PRN for SOB. 7. Gout 8. Anemia of chronic disease 9. Mood disorders - c/w mirtazepine and citalopram. DVT ppx: HSQ Code status: DNR/DNI Vital Signs Vital Signs Date Time Temp Pulse Resp B/P (MAP) Pulse Ox O2 Delivery O2 Flow Rate FiO2 03/07/20 21:22 98.0 69 18 172/78 (109) 94 03/07/20 19:09 Room Air Laboratory Data Labs 24H Laboratory Tests 2 03/07/20 19:37: Bedside Glucose (Misc Panel) 288H 03/07/20 19:49: Immature Granulocyte % (Auto) 0.7, Neutrophils (%) (Auto) 82.0H, Lymphocytes (%) (Auto) 6.4L, Monocytes (%) (Auto) 9.8H, Eosinophils (%) (Auto) 0.8, Basophils (%) (Auto) 0.3, Neutrophils # (Auto) 8.1, Lymphocytes # (Auto) 0.6L, Monocytes # (Auto) 1.0H, Eosinophils # (Auto) 0.1, Basophils # (Auto) 0.0, Nucleated Red Blood Cells % (auto) 0.0, Prothrombin Time 13.5, Prothromb Time International Ratio 1.06, Activated Partial Thromboplast Time 36.4, D-Dimer, Quantitative 3242.71H, Anion Gap 10, Glomerular Filtration Rate 6.1L, Calcium Level 7.7L, Lactate Dehydrogenase 218, Total Creatine Kinase 107, Creatine Kinase MB 2.0, Creatine Kinase MB Relative Index 1.87, Troponin I < 0.02, C-Reactive Protein, Quantitative 10.00H 03/07/20 20:19: POC pH (Misc Panel) 7.454H, POC Base Excess (Misc Panel) -1.0, POC Saturated P ercent O2 (Misc) 95, POC pO2 (Misc Panel) 72.0L, POC pCO2 (Misc Panel) 32.3L, POC HCO3 (Misc Panel) 22.7, POC Total CO2 (Misc Panel) 24.0 CBC/BMP Laboratory Tests 03/07/20 19:49 Home Medications Scheduled Amlodipine Besylate (Amlodipine Besylate) 10 Mg Tablet, 10 MG PO DAILY Aspirin (Aspirin EC) 81 Mg Tab, 81 MG PO DAILY Atorvastatin Calcium (Atorvastatin Calcium) 80 Mg Tab, 80 MG PO QPM 1600 Calcium Carbonate (Calcium) 600 Mg Tab, 600 MG PO QPM 1600 Citalopram Hydrobromide (Citalopram HBr) 40 Mg Tab, 40 MG PO DAILY Clopidogrel Bisulfate (Clopidogrel) 75 Mg Tab, 75 MG PO DAILY Ergocalciferol (Vitamin D2) (Drisdol) 50,000 Unit Cap, 50,000 UNIT PO QWEEK WEDNESDAYS Ferrous Sulfate (Ferrous Sulfate) 325 Mg Tablet.dr, 325 MG PO DAILY Furosemide (Furosemide) 20 Mg Tablet, 40 MG PO DAILY Hydralazine HCl (Hydralazine HCl) 50 Mg Tablet, 50 MG PO TID Isosorbide Dinitrate (Isosorbide Dinitrate) 30 Mg Tablet, 30 MG PO BID Labetalol HCl (Labetalol HCl) 200 Mg Tablet, 200 MG PO BID Mirtazapine (Remeron) 15 Mg Tablet, 45 MG PO QPM @1600, TAKE 1 45MG TAB. Pantoprazole Sodium (Pantoprazole Sodium) 40 Mg Tab, 40 MG PO BID Spironolactone (Spironolactone) 25 Mg Tab, 25 MG PO BID Thiamine HCl (Thiamine HCl) 100 Mg Tablet, 100 MG PO DAILY Scheduled PRN Ipratropium/Albuterol Sulfate (Combivent Respimat 20-100 Mcg) 4 Gm Mist.inhal, 2 PUFF INH Q4H PRN for SOB/WHEEZING Allergies Coded Allergies: Quinolones (Verified Allergy, Mild, RASH, 02/16/19) CHARLES Inhibitors (Verified Adverse Reaction, Intermediate, ARF, 02/16/19) NSAIDS (Non-Steroidal Anti-Inflamma (Verified Adverse Reaction, Inte rmediate, KIDNEY DAMAGE, 02/16/19) celecoxib (Verified Adverse Reaction, Intermediate, KIDNEY DAMAGE, 02/16/19) gabapentin (Verified Adverse Reaction, Intermediate, personality changes, 02/17/19) ibuprofen (Verified Adverse Reaction, Intermediate, KIDNEY DAMAGE, 02/16/19) lisinopril (Verified Adverse Reaction, Intermediate, RENAL FAILURE, 02/16/19) sulfamethoxazole (Verified Adverse Reaction, Intermediate, RENAL FAILURE, 02/16/19) trimethoprim (Verified Adverse Reaction, Intermediate, RENAL FAILURE, 02/16/19) cefazolin (Verified Adverse Reaction, Mild, DIZZINESS, 02/16/19) cyclobenzaprine (Verified Adverse Reaction, Mild, DIZZINESS, 02/16/19) hydrochlorothiazide (Verified Adverse Reaction, Mild, DIZZINESS, 02/16/19) triamterene (Verified Adverse Reaction, Mild, DIZZINESS, 02/16/19) A-FIB/CHADSVASC A-FIB History Current/History of A-Fib/PAF?: No MERLENE FRIED MD Mar 07, 2020 22:09
[2020-03-07] MEDS ORDERED: GLUCAGON INJ 1MG VIAL SC PRN (22:15)
[2020-03-07] MEDS ORDERED: GLUCOSE 4GM CHEW TABLET PO PRN (22:15)
[2020-03-07] MEDS ORDERED: DEXTROSE 50% 50 ML SYRINGE IV PRN (22:15)
[2020-03-07] MEDS ORDERED: REME15TA PO (22:33)
[2020-03-07] MEDS ORDERED: LABE200T32 PO (22:33)
[2020-03-07] MEDS ORDERED: HYDR-3910 PO (22:33)
[2020-03-07] MEDS ORDERED: VITA50005 PO (22:33)
[2020-03-07] MEDS ORDERED: AMLO10TA5 PO (22:33)
[2020-03-07] MEDS ORDERED: INSUHUMDS SC (22:33)
[2020-03-07] MEDS ORDERED: CLON-412 PO (22:35)
[2020-03-07] MEDS ORDERED: HYDR-3713 PO (22:35)
[2020-03-07] MEDS ORDERED: CALC1CAP31 PO (22:35)
[2020-03-08] VITALS (20 sets, daily range): BP systolic 140–209; BP diastolic 50–86; O2SAT 92–96
[2020-03-08] MEDS: hydrALAZINE 20MG/ML 1ML VIAL (J0360 PER 20MG) IV SCH ×4 (04:25→16:30)
[2020-03-08 05:06] LABS: HEMATOCRIT 32.6 % (42.0-52.0); MEAN CORPUSCULAR HEMOGLOBIN 34.6 pg (27.0-33.0); MEAN CORPUSCULAR HGB CONC 33.7 g/dl (32.0-36.5); MEAN CORPUSCULAR VOLUME 102.5 fl (80.0-96.0); PLATELET COUNT, AUTOMATED 162 10^3/uL (150-450); RED BLOOD COUNT 3.18 10^6/uL (4.30-6.10)
[2020-03-08 05:33] LABS: CALCIUM LEVEL 7.7 MG/DL (8.8-10.2); GLOMERULAR FILTRATION RATE 5.5 (>49); POTASSIUM SERUM 4.7 MEQ/L (3.5-5.1)
--- NOTE | 2020-03-08 08:02 | REP ---
Clinical: Dyspnea . Comparison: 07/09/2019 . Findings: The mediastinum and cardiac silhouette are stable and cardiomegaly is again noted. The lung ernandez demonstrate chronic interstitial changes without acute consolidation, effusion, or pneumothorax. Skeletal structures are intact. Impression: No acute cardiopulmonary process appreciated. Electronically Signed by Dario Adler MD 03/08/2020 07:53 A
[2020-03-08] MEDS ORDERED: HEPARIN SOD (PORCINE) 5000UNITS/ML VIAL (J1644 PER 1000UNITS) SC SCH (09:00)
[2020-03-08] MEDS ORDERED: predniSONE 20 MG TAB PO SCH (09:00)
--- NOTE | 2020-03-08 11:14 | IPNPDOC ---
Text Note Date of Service The patient was seen on 03/08/20. NOTE Patient was seen and examined this morning. No overnight events scheduled for dialysis today. PHYSICAL EXAMINATION: General: No distress, Alert Eyes: Normal sclera, EOMI HENT: Atraumatic Cardiovascular: Normal rate, normal rhythm. Pulmonary: Minimal bibasilar rales, no wheezing GI: Soft, nontender, nondistended Skin: Warm and dry Neuro: CN grossly intact. No focal deficits. Generalized weakness. Psych: oriented x 3 Labs reviewed IMAGING: CXR- No significant abnormalities noted per self. F/u official report. LLE doppler- no evidence of DVT. ASSESSMENT AND PLAN: 1. SOB: Suspect 2/2 period between his last HD session on saturday, very minimal rales in bibasilar bases. No significant evidence of volume overload on exam. No significant wheezing either. . He was started on IV steroids which I'm going to be escalated very soon. Nephrology is consulted and is going for dialysis today. 2. ESRD on HD: TThS. Last session on saturday. Nephrology on board and they're going to dialyze today. No hyperkalemia. No major other to light disorders. 3. PVD : c/w ASA, Plavix, statin. 4. HTN: BP elevated in 170s at this time. Resume all home meds. Hopefully will improve further post HD. 5. CAD: No active chest pain or problems noted at this time. c/w ASA and statin. 6. COPD: Does not look like an exacerbation. Will DC his steroids. Continue his home inhalers. DVT ppx: HSQ Code status: DNR/DNI Hopefully discharged after dialysis today. VS,Fishbone, I+O VS, Fishbone, I+O Laboratory Tests 03/07/20 19:49 03/08/20 04:31 Vital Signs Date Time Temp Pulse Resp B/P (MAP) Pulse Ox O2 Delivery O2 Flow Rate FiO2 03/08/20 09:00 93 Room Air 03/08/20 08:20 74 162/68 (99) 03/08/20 07:57 97.2 18 03/08/20 03:00 2.0 I&O- Last 24 Hours up to 6 AM 03/08/20 06:00 Output Total 0 ml Balance 0 ml BALJIT OTOOLE MD Mar 08, 2020 11:14
--- NOTE | 2020-03-08 12:24 | DS.PDOC ---
Discharge Summary General Date of Admission Mar 07, 2020 at 22:00 Date of Discharge 03/08/20 Discharge Summary Chief complaints. Shortness of breath Final diagnosis Fluid overload ESRD on dialysis History of present illness and Hospital course Patient was admitted for SOB: Suspect 2/2 period between his last HD session on saturday, very minimal rales in bibasilar bases. No significant evidence of volu me overload on exam. No significant wheezing either. . He was started on IV steroids which we had discontinued as there was no evidence of COPD exacerbation. Nephrology was consulted and is going for dialysis today. I spoke with Dr. Cottrell, the publications manager and as per him. No need of repeat dialysis tomorrow and he can be discharged. The patient has a history of ESRD on HD: TThS. Advised about compliance. For his PVD c/w ASA, Plavix, statin. . He'll be continued on his home medications for hypertension, coronary artery disease and continued on his home inhalers for his COPD. He is DNR/DNI and is medically optimized for discharge with follow-up with nephrology and PCP. PHYSICAL EXAMINATION: General: No distress, Alert Eyes: Normal sclera, EOMI HENT: Atraumatic Cardiovascular: Normal rate, normal rhythm. Pulmonary: Minimal bibasilar rales, no wheezing GI: Soft, nontender, nondistended Skin: Warm and dry Neuro: CN grossly intact. No focal deficits. Generalized weakness. Psych: oriented x 3 Labs reviewed IMAGING: CXR- No significant abnormalities noted LLE doppler- no evidence of DVT. Medications. As per discharge reconciliation medication list Activity as tolerated Diet. 2 g sodium diet Follow-up appointments. PCP in 1 week, nephrology in 1 week. Condition on discharge. Patient is medically optimized for discharge Discharge disposition: Home Total time spent on this discharge including coordination of care, review of chart documentation and actual contact is around 35 minutes Vital Signs/I&Os Vital Signs Date Time Temp Pulse Resp B/P (MAP) Pulse Ox O2 Delivery O2 Flow Rate FiO2 03/08/20 12:01 97.9 100 18 182/50 (94) 93 Room Air 03/08/20 03:00 2.0 I&O- Last 24 Hours up to 6 AM 03/08/20 06:00 Output Total 0 ml Balance 0 ml Laboratory Data Labs 24H Laboratory Tests 2 03/07/20 19:37: Bedside Glucose (Misc Panel) 288H 03/07/20 19:49: Immature Granulocyte % (Auto) 0.7, Neutrophils (%) (Auto) 82.0H, Lymphocytes (%) (Auto) 6.4L, Monocytes (%) (Auto) 9.8H, Eosinophils (%) (Auto) 0.8, Basophils (%) (Auto) 0.3, Neutrophils # (Auto) 8.1, Lymphocytes # (Auto) 0.6L, Monocytes # (Auto) 1.0H, Eosinophils # (Auto) 0.1, Basophils # (Auto) 0.0, Nucleated Red Blood Cells % (auto) 0.0, Prothrombin Time 13.5, Prothromb Time International Ratio 1.06, Activated Partial Thromboplast Time 36.4, D-Dimer, Quantitative 3242.71H, Anion Gap 10, Glomerular Filtration Rate 6.1L, Calcium Level 7.7L, Lactate Dehydrogenase 218, Total Creatine Kinase 107, Creatine Kinase MB 2.0, Creatine Kinase MB Relative Index 1.87, Troponin I < 0.02, C-Reactive Protein, Quantitative 10.00H 03/07/20 20:19: POC pH (Misc Panel) 7.454H, POC Base Excess (Misc Panel) -1.0, POC Saturated Percent O2 (Misc) 95, POC pO2 (Misc Panel) 72.0L, POC pCO2 (Misc Panel) 32.3L, POC HCO3 (Misc Panel) 22.7, POC Total CO2 (Misc Panel) 24.0 03/07/20 22:17: Bedside Glucose (Misc Panel) 271H 03/07/20 22:30: Coronavirus (COVID-19)(PCR) NEGATIVE 03/07/20 22:57: Lactic Acid Level 0.6 03/08/20 04:31: Nucleated Red Blood Cells % (auto) 0.0, Anion Gap 10, Glomerular Filtration Rate 5.5L, Calcium Level 7.7L 03/08/20 07:39: Bedside Glucose (Misc Panel) 413H 03/08/20 08:20: Methicillin-Resist S.aureus DNA PCR DETECTEDA 03/08/20 11:18: Bedside Glucose (Misc Panel) 558*H CBC/BMP Laboratory Tests 03/07/20 19:49 03/08/20 04:31 FSBS Laboratory Tests Test 03/07/20 19:37 03/07/20 22:17 03/08/20 07:39 03/08/20 11:18 Range/Units Bedside Glucose (Misc Panel) 288 271 413 558 80-115 MG/DL Microbiology Microbiology 03/07/20 Blood Culture, Received Pending 03/07/20 Blood Culture, Received Pending Discharge Medications Scheduled Amlodipine Besylate (Amlodipine Besylate) 10 Mg Tablet, 5 MG PO DAILY, (Reported) Aspirin (Aspirin EC) 81 Mg Tab, 81 MG PO DAILY, (Reported) Atorvastatin Calcium (Atorvastatin Calcium) 80 Mg Tab, 80 MG PO QPM, (Reported) 1600 Calcitriol (Calcitriol) 0.25 Mcg Capsule, 0.25 MCG PO 3XW, (Reported) SATURDAY, SATURDAY, AND SATURDAY AT DIALYSIS Calcium Carbonate (Calcium) 600 Mg Tab, 600 MG PO QPM, (Reported) 1600 Citalopram Hydrobromide (Citalopram HBr) 40 Mg Tab, 40 MG PO DAILY, (Reported) Clonidine HCl (Clonidine HCl) 0.1 Mg Tablet, 0.1 MG PO BID, (Reported) Clopidogrel Bisulfate (Clopidogrel) 75 Mg Tab, 75 MG PO DAILY, (Reported) Ergocalciferol (Vitamin D2) (Vitamin D2) 50,000 Units Cap, 50,000 UNITS PO 1XWK, (Reported) SATURDAY Ferrous Sulfate (Ferrous Sulfate) 325 Mg Tablet.dr, 325 MG PO DAILY, (Reported) Hydralazine HCl (Hydralazine HCl) 25 Mg Tablet, 25 MG PO Q8H, (Reported) Insulin Human Lispro (Humalog) 100 Unit/1 Ml Vial, 1 DOSE SC ASDIRECTED, (Reported) VIA INSULIN PUMP: 0000 - 0400 : 0.6 UNITS/HR 0400 - 2100 : 0.3 UNITS/HR 2100 - 0000 : 0.6 UNITS/HR CARB RATIO 12 CARBS PER UNIT Labetalol HCl (Labetalol HCl) 200 Mg Tablet, 200 MG PO BID, (Reported) Mirtazapine (Remeron) 15 Mg Tablet, 45 MG PO QHS, (Reported) Pantoprazole Sodium (Pantoprazole Sodium) 40 Mg Tab, 40 MG PO BID, (Reported) Spironolactone (Spironolactone) 25 Mg Tab, 25 MG PO BID, (Reported) Scheduled PRN Hydrocodone/Acetaminophen (Hydrocodone-Acetamin 5-325 mg) 1 Each Tablet, 1 TAB PO Q6H PRN for PAIN, (Reported) Ipratropium/Albuterol Sulfate (Combivent Respimat 20-100 Mcg) 4 Gm Mist.inhal, 2 PUFF INH Q4H PRN for SOB/WHEEZING, (Reported) Allergies Coded Allergies: Quinolones (Verified Allergy, Mild, RASH, 02/16/19) CHARLES Inhibitors (Verified Adverse Reaction, Intermediate, ARF, 02/16/19) NSAIDS (Non-Steroidal Anti-Inflamma (Verified Adverse Reaction, Intermediate, KIDNEY DAMAGE, 02/16/19) celecoxib (Verified Adverse Reaction, Intermediate, KIDNEY DAMAGE, 02/16/19) gabapentin (Verified Adverse Reaction, Intermediate, personality changes, 02/17/19) ibuprofen (Verified Adverse Reaction, Intermediate, KIDNEY DAMAGE, 02/16/19) lisinopril (Verified Adverse Reaction, Intermediate, RENAL FAILURE, 02/16/19) sulfamethoxazole (Verified Adverse Reaction, Intermediate, RENAL FAILURE, 02/16/19) trimethoprim (Verified Adverse Reaction, Intermediate, RENAL FAILURE, 02/16/19) cefazolin (Verified Adverse Reaction, Mild, DIZZINESS, 02/16/19) cyclobenzaprine (Verified Adverse Reaction, Mild, DIZZINESS, 02/16/19) hydrochlorothiazide (Verified Adverse Reaction, Mild, DIZZINESS, 02/16/19) triamterene (Verified Adverse Reaction, Mild, DIZZINESS, 02/16/19) BALJIT OTOOLE MD Mar 08, 2020 12:24
--- NOTE | 2020-03-08 16:20 | ECGEPIP ---
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
--- NOTE | 2020-03-08 18:36 | CR ---
DATE OF CONSULTATION: 03/08/2020 NEPHROLOGY CONSULTATION FOR: Gillian Leung MD REASON FOR CONSULTATION: To assist in the management of shortness of breath and end-stage renal disease. HISTORY OF PRESENT ILLNESS: Mr. Norwood is a 69-year-old gentleman with known history of longstanding diabetes, hypertension, coronary artery disease, peripheral vascular disease and end-stage renal disease. He receives maintenance hemodialysis on Saturday, and Saturday schedule. He did have his dialysis on Saturday and was feeling well. On Saturday evening he started to feel short of breath and came to the emergency room. He was felt to have some volume overload and was admitted. However, I was not called either by the emergency room physician or by the admitting physician. I was called this morning for a consult and have seen the patient. The patient is due for dialysis today. PAST MEDICAL AND SURGICAL HISTORY: Significant for 1. Insulin-requiring diabetes, has been on insulin pump. 2. Hypertension. 3. Coronary artery disease. 4. Peripheral vascular disease. 5. Gout. 6. History of depression and mood disorder. 7. History of chronic obstructive pulmonary disease (COPD). 8. History of recurrent gastrointestinal (GI) bleed with blood loss anemia requiring transfusions. 9. End-stage renal disease requiring maintenance hemodialysis on Saturday, and Saturday schedule. Past surgical history is significant for right femoral-popliteal bypass, arteriovenous (AV) fistula surgery in his right arm, cataract surgery - bilateral. PERSONAL AND SOCIAL HISTORY: The patient is a former smoker. He denies any alcohol or drug use. He is and lives with his . FAMILY HISTORY: Noncontributory. ALLERGIES: The patient has multiple allergies recorded in his EMR. HOME MEDICATIONS: His home medications include amlodipine 10 mg daily, aspirin 81 mg daily, atorvastatin 80 mg daily, calcium carbonate 6 mg daily, citalopram 40 mg daily, Plavix 75 mg daily, vitamin D 50,000 units once a week, ferrous sulfate 325 mg daily, furosemide 20 mg two tablets daily, hydralazine 50 mg three times a day, Imdur 30 mg twice a day, labetalol 200 mg twice a day, pantoprazole 40 mg daily, spironolactone 25 mg twice a day, thiamine 100 mg daily and Remeron 15 mg at bedtime. REVIEW OF SYSTEMS: The patient reports feeling shivering and chills and also was short of breath. He denies any high-grade fever. Ears, nose and throat are unremarkable. Cardiovascular system is significant for known history of coronary artery disease and congestive heart failure. He denies any chest pain and his dyspnea improved. Respiratory system is negative for cough or hemoptysis. Gastrointestinal (GI) system is negative for nausea, vomiting or diarrhea. Genitourinary () system is negative for dysuria, hematuria or kidney stones. Musculoskeletal system is negative for leg edema. He denies any significant arthritis. Endocrine system is significant for type 2 diabetes and has been on insulin pump. He also has secondary hyperparathyroidism. Psychosocial system is significant for depression and mood disorder. Neurological system is significant for peripheral neuropathy and possible prior stroke. Skin is negative for rash or ulcers. PHYSICAL EXAMINATION: The patient is awake and alert at the time of my visit this morning. Temperature 97.8 degrees Fahrenheit, heart rate 100 per minute and respiratory rate 18 per minute. Blood pressure 180/50 mmHg and oxygen saturation 96% on room air. Head is atraumatic. Neck supple and jugular venous distention (JVD) moderately elevated. There is no oral thrush or ulcers. Trachea is midline and thyroid is not enlarged. Heart sounds are somewhat tachycardiac. Lungs sound mostly clear with only few basilar rales. Abdomen: Soft and nontender and bowel sounds are normal. Extremities: Without any cyanosis or clubbing. Right arm AV fistula is patent. Neurologically he is grossly intact. He had a chest x-ray done in the emergency room, which did show mild cardiomegaly and no cardiopulmonary abnormality otherwise. LABORATORY DATA: Showed a WBC count 8.0 this morning, hemoglobin 11.0 and hematocrit 32.6. Platelets 162. Sodium 130, potassium 4.7, chloride 96, CO2 of 24, BUN 73 and creatinine 10.0. Glucose 345 and calcium 7.7. PROBLEMS: 1. Shortness of breath, probably mild volume overload and mostly a panic attack. He seems to be doing well and not requiring any oxygen supplementation this morning. I do not see any significant evidence of hypervolemia on physical exam or on his chest x-rays. We will try to remove at least 2 liters of fluid with dialysis today and see how he tolerates. 2. End-stage renal disease. The patient is due for dialysis today and will be dialyzed this afternoon. 3. Hyponatremia related to hyperglycemia and end-stage renal disease. This will improve with dialysis and no other intervention would be needed. 4. Anemia. His anemia is stable and does not need urgent intervention. 5. Elevated C-reactive protein. His C-reactive protein is reported at 10.0. He does not seem to have any clinical evidence of infection. I will defer to hospitalist service to see if he needs any further investigation. Thank you for involving me in the care of Mr. Norwood. I will follow him along with you.
== END 2020-03-08 18:35 | disposition home or self-care (01) | DRG 640 ==
LOC: M ED 19:09 → M ED INP 22:00 → ENRESERV 22:07 → M PCU 03-08 00:41
PROVIDERS: ADMIT Student in an Organized Health Care Education/Training Program; ATTEND Internal Medicine
PROC: 5A1D70Z Performance of Urinary Filtration, Intermittent, Less than 6 Hours Per Day (ICD-10-PCS; principal; 2020-03-08)
DX: E87.70 Fluid overload, unspecified (principal); N18.6 End stage renal disease; I12.0 Hypertensive chronic kidney disease with stage 5 chronic kidney disease or end stage renal disease; Z79.82 Long term (current) use of aspirin; Z79.899 Other long term (current) drug therapy; Z88.8 Allergy status to other drugs, medicaments and biological substances; Z88.6 Allergy status to analgesic agent; Z88.2 Allergy status to sulfonamides; I25.10 Atherosclerotic heart disease of native coronary artery without angina pectoris; J44.9 Chronic obstructive pulmonary disease, unspecified; E11.51 Type 2 diabetes mellitus with diabetic peripheral angiopathy without gangrene; M10.9 Gout, unspecified; Z87.891 Personal history of nicotine dependence; D63.1 Anemia in chronic kidney disease; F39 Unspecified mood [affective] disorder; Z66 Do not resuscitate; E87.1 Hypo-osmolality and hyponatremia

== ENCOUNTER 2020-04-02 14:00 | Inpatient (IN) | payer MEDICARE ==
[~2020-04-02 14:00] MED LIST changes: -AMLO10TA5 PO; +AMLO1TAB24 PO; +AMLO1TAB25 PO; -AMLO5TAB6 PO; +LABE200T32 PO; +PANT40TA29 PO; -PANT40TA3 PO
[2020-04-02] MEDS ORDERED: PANTOPRAZOLE 40MG VIAL (C9113 PER 1) ONE (16:20)
[2020-04-03] MEDS ORDERED: MIRTAZAPINE 15 MG TAB ONE ×2 (00:13→12:13)
[2020-04-03] MEDS ORDERED: clonazePAM 1 MG TAB ONE ×3 (00:13→10:50)
[2020-04-03] MEDS ORDERED: **hydrALAZINE HCL** 25 MG TAB ONE ×4 (00:13→17:32)
[2020-04-03] MEDS ORDERED: POTASSIUM CHLORIDE 10 MEQ SR TABLET ONE ×4 (03:38→17:32)
[2020-04-03] MEDS ORDERED: LABETALOL 200 MG TAB ONE ×2 (10:50→12:13)
[2020-04-03] MEDS ORDERED: amLODIPine 5 MG TAB ONE ×2 (10:50)
[2020-04-03] MEDS ORDERED: CitaloPRAM (CeleXA) 20 MG TAB ONE ×2 (10:50)
[2020-04-03] MEDS ORDERED: PANTOPRAZOLE 40MG VIAL (C9113 PER 1) ONE ×2 (10:50)
[2020-04-03] MEDS ORDERED: ATORVASTATIN 20 MG TAB ONE ×2 (10:50)
[2020-04-03] MEDS ORDERED: cloNIDine 0.1 MG TAB ONE (12:13)
[2020-04-03] MEDS ORDERED: LABETALOL 100 MG TAB ONE (15:00)
[2020-04-04] MEDS ORDERED: PANTOPRAZOLE 40MG VIAL (C9113 PER 1) ONE ×6 (00:17→21:49)
[2020-04-04] MEDS ORDERED: MIRTAZAPINE 15 MG TAB ONE ×4 (00:17→21:49)
[2020-04-04] MEDS ORDERED: cloNIDine 0.1 MG TAB ONE (00:17)
[2020-04-04] MEDS ORDERED: **hydrALAZINE HCL** 25 MG TAB ONE ×8 (00:17→21:49)
[2020-04-04] MEDS ORDERED: clonazePAM 1 MG TAB ONE (00:17)
[2020-04-04] MEDS ORDERED: LABETALOL 200 MG TAB ONE ×2 (09:00→13:00)
[2020-04-04] MEDS ORDERED: amLODIPine 5 MG TAB ONE (10:14)
[2020-04-04] MEDS ORDERED: ATORVASTATIN 20 MG TAB ONE (10:14)
[2020-04-04] MEDS ORDERED: CitaloPRAM (CeleXA) 20 MG TAB ONE (10:14)
[2020-04-05] MEDS ORDERED: **hydrALAZINE HCL** 25 MG TAB ONE ×2 (06:10→13:07)
[2020-04-05] MEDS ORDERED: PANTOPRAZOLE 40MG VIAL (C9113 PER 1) ONE ×2 (06:10→21:58)
[2020-04-05] MEDS ORDERED: amLODIPine 5 MG TAB ONE (06:10)
[2020-04-05] MEDS ORDERED: ATORVASTATIN 20 MG TAB ONE (06:10)
[2020-04-05] MEDS ORDERED: CitaloPRAM (CeleXA) 20 MG TAB ONE (06:10)
[2020-04-05] MEDS ORDERED: cloNIDine 0.1 MG TAB ONE ×2 (13:42→21:59)
[2020-04-05] MEDS ORDERED: clonazePAM 1 MG TAB ONE ×2 (13:42→21:58)
[2020-04-05] MEDS ORDERED: FERROUS SULFATE 325MG TAB ONE (18:55)
[2020-04-05] MEDS ORDERED: MIRTAZAPINE 15 MG TAB ONE ×2 (21:58→21:59)
[2020-04-06] MEDS ORDERED: **hydrALAZINE HCL** 25 MG TAB ONE ×2 (05:39)
[2020-04-06] MEDS ORDERED: amLODIPine 5 MG TAB ONE (08:06)
[2020-04-06] MEDS ORDERED: ATORVASTATIN 20 MG TAB ONE (08:06)
[2020-04-06] MEDS ORDERED: FERROUS SULFATE 325MG TAB ONE (08:06)
[2020-04-06] MEDS ORDERED: CitaloPRAM (CeleXA) 20 MG TAB ONE (08:06)
[2020-04-06] MEDS ORDERED: clonazePAM 1 MG TAB ONE (08:06)
[2020-04-06] MEDS ORDERED: PANTOPRAZOLE 40MG VIAL (C9113 PER 1) ONE (08:06)
[2020-04-06] MEDS ORDERED: cloNIDine 0.1 MG TAB ONE (08:07)
[2020-04-06] MEDS ORDERED: LABETALOL 200 MG TAB ONE (12:00)
[2020-04-29 11:41] LABS: INR 0.9; PARTIAL THROMBOPLASTIN TIME 31.9 SECONDS (25.0-38.4); PROTHROMBIN TIME 12.4 SECONDS (11.8-14.0)
[2020-04-29 14:46] LABS: BASO % 0.6 % (0.0-1.0); EOS # 0.1 10^3/uL (0.0-0.5); EOS % 1.7 % (0.0-3.0); HEMATOCRIT 21.4 % (42.0-52.0); HEMOGLOBIN 7.5 g/dl (13.5-17.5); LYMPH # 0.5 10^3/uL (1.5-5.0); LYMPH % 15.2 % (24.0-44.0); MEAN CORPUSCULAR HEMOGLOBIN 35.9 pg (27.0-33.0); MEAN CORPUSCULAR VOLUME 102.4 fl (80.0-96.0); MONO # 0.4 10^3/uL (0.0-0.8); MONO % 11.2 % (0.0-5.0); NEUTROPHILS # 2.4 10^3/uL (1.5-8.5); NEUTROPHILS % 69.6 % (36.0-66.0); PLATELET COUNT, AUTOMATED 181 10^3/uL (150-450); RED BLOOD COUNT 2.09 10^6/uL (4.30-6.10); WHITE BLOOD COUNT 3.5 10^3/uL (4.0-10.0)
[2020-05-10 07:30] LABS: BLOOD UREA NITROGEN 16 MG/DL (7-18); CHLORIDE LEVEL 95 MEQ/L (98-107); CREATININE FOR GFR 2.86 MG/DL (0.70-1.30); GLOMERULAR FILTRATION RATE 23.5 (>49); GLUCOSE, FASTING 247 MG/DL (70-100); POTASSIUM SERUM 3.6 MEQ/L (3.5-5.1); SODIUM LEVEL 136 MEQ/L (136-145)
[2020-05-10 07:31] LABS: ALBUMIN 2.7 GM/DL (3.2-5.2); ALT/SGPT 23 IU/L (0-32); BILIRUBIN,DIRECT < 0.1 MG/DL (0.0-0.2); BILIRUBIN,TOTAL 0.3 MG/DL (0.2-1.0); CALCIUM LEVEL 7.8 MG/DL (8.8-10.2); CARBON DIOXIDE LEVEL 33 mmol/L (20-29); CK-MB VALUE MASS 1.8 NG/ML (<3.6); CPK CREATINE PHOSPHOKINASE 94 U/L (39-308); MB/CK RELATIVE INDEX 1.91 (< OR =4); TOTAL PROTEIN 6.3 GM/DL (6.4-8.2)
[2020-05-10 07:32] LABS: TROPONIN I < 0.02 NG/ML (< 0.10)
[2020-05-17 11:13] LABS: CREATININE FOR GFR 4.07 MG/DL (0.70-1.30); GLOMERULAR FILTRATION RATE 15.7 (>49); POTASSIUM SERUM 2.9 MEQ/L (3.5-5.1)
[2020-05-17 11:14] LABS: CALCIUM LEVEL 7.5 MG/DL (8.8-10.2)
[2020-05-17 11:15] LABS: CALCIUM LEVEL 8.1 MG/DL (8.8-10.2); CREATININE FOR GFR 4.78 MG/DL (0.70-1.30); POTASSIUM SERUM 4.7 MEQ/L (3.5-5.1)
[2020-05-17 11:17] LABS: CALCIUM LEVEL 8.2 MG/DL (8.8-10.2); CREATININE FOR GFR 4.89 MG/DL (0.70-1.30); GLOMERULAR FILTRATION RATE 12.7 (>49); POTASSIUM SERUM 5.1 MEQ/L (3.5-5.1)
[2020-05-19 18:29] LABS: CALCIUM LEVEL 8.6 MG/DL (8.8-10.2); CREATININE FOR GFR 8.23 MG/DL (0.70-1.30); GLOMERULAR FILTRATION RATE 6.9 (>49); POTASSIUM SERUM 4.8 MEQ/L (3.5-5.1)
[2020-05-22 01:37] LABS: CALCIUM LEVEL 8.1 MG/DL (8.8-10.2); CREATININE FOR GFR 6.25 MG/DL (0.70-1.30); GLOMERULAR FILTRATION RATE 9.5 (>49); POTASSIUM SERUM 4.2 MEQ/L (3.5-5.1)
[2020-05-24 20:41] LABS: HEMATOCRIT 28.8 % (42.0-52.0); MEAN CORPUSCULAR HEMOGLOBIN 34.1 pg (27.0-33.0); MEAN CORPUSCULAR VOLUME 100.3 fl (80.0-96.0); PLATELET COUNT, AUTOMATED 165 10^3/uL (150-450); RED BLOOD COUNT 2.87 10^6/uL (4.30-6.10); WHITE BLOOD COUNT 4.1 10^3/uL (4.0-10.0)
[2020-05-24 20:42] LABS: HEMOGLOBIN 9.8 g/dl (13.5-17.5)
[2020-05-24 21:10] LABS: HEMATOCRIT 28.1 % (42.0-52.0); MEAN CORPUSCULAR HEMOGLOBIN 33.9 pg (27.0-33.0); MEAN CORPUSCULAR HGB CONC 34.9 g/dl (32.0-36.5); MEAN CORPUSCULAR VOLUME 97.2 fl (80.0-96.0); PLATELET COUNT, AUTOMATED 163 10^3/uL (150-450); RED BLOOD COUNT 2.89 10^6/uL (4.30-6.10); WHITE BLOOD COUNT 3.8 10^3/uL (4.0-10.0)
[2020-05-24 21:11] LABS: HEMOGLOBIN 9.8 g/dl (13.5-17.5)
[2020-05-24 21:16] LABS: HEMATOCRIT 30.7 % (42.0-52.0); HEMOGLOBIN 10.6 g/dl (13.5-17.5); WHITE BLOOD COUNT 4.1 10^3/uL (4.0-10.0)
[2020-05-24 21:17] LABS: HEMATOCRIT 32.3 % (42.0-52.0); HEMOGLOBIN 10.9 g/dl (13.5-17.5); RED BLOOD COUNT 3.22 10^6/uL (4.30-6.10); WHITE BLOOD COUNT 3.7 10^3/uL (4.0-10.0)
[2020-05-24 21:17] LABS: MEAN CORPUSCULAR HEMOGLOBIN 34.2 pg (27.0-33.0); MEAN CORPUSCULAR HGB CONC 34.5 g/dl (32.0-36.5); PLATELET COUNT, AUTOMATED 180 10^3/uL (150-450)
[2020-05-24 21:18] LABS: HEMATOCRIT 32.3 % (42.0-52.0); HEMOGLOBIN 10.9 g/dl (13.5-17.5); RED BLOOD COUNT 3.23 10^6/uL (4.30-6.10); WHITE BLOOD COUNT 3.6 10^3/uL (4.0-10.0)
[2020-05-24 21:18] LABS: MEAN CORPUSCULAR HEMOGLOBIN 33.9 pg (27.0-33.0); MEAN CORPUSCULAR HGB CONC 33.7 g/dl (32.0-36.5); MEAN CORPUSCULAR VOLUME 100.3 fl (80.0-96.0); PLATELET COUNT, AUTOMATED 182 10^3/uL (150-450)
[2020-05-24 21:19] LABS: MEAN CORPUSCULAR HEMOGLOBIN 33.7 pg (27.0-33.0); MEAN CORPUSCULAR HGB CONC 33.7 g/dl (32.0-36.5); PLATELET COUNT, AUTOMATED 185 10^3/uL (150-450)
[2020-05-24 21:21] LABS: HEMATOCRIT 30.8 % (42.0-52.0); HEMOGLOBIN 10.4 g/dl (13.5-17.5); MEAN CORPUSCULAR HEMOGLOBIN 34.1 pg (27.0-33.0); MEAN CORPUSCULAR HGB CONC 33.8 g/dl (32.0-36.5); PLATELET COUNT, AUTOMATED 178 10^3/uL (150-450); RED BLOOD COUNT 3.05 10^6/uL (4.30-6.10); WHITE BLOOD COUNT 3.2 10^3/uL (4.0-10.0)
[2020-05-26 16:32] LABS: HEMATOCRIT 28.1 % (42.0-52.0); HEMOGLOBIN 9.4 g/dl (13.5-17.5); MEAN CORPUSCULAR HEMOGLOBIN 33.8 pg (27.0-33.0); MEAN CORPUSCULAR HGB CONC 33.5 g/dl (32.0-36.5); MEAN CORPUSCULAR VOLUME 101.1 fl (80.0-96.0); PLATELET COUNT, AUTOMATED 180 10^3/uL (150-450); RED BLOOD COUNT 2.78 10^6/uL (4.30-6.10); WHITE BLOOD COUNT 4.5 10^3/uL (4.0-10.0)
--- NOTE | 2020-05-27 07:43 | ECGEPIP ---
SINUS RHYTHM WITH ONE DEGREE AVB POSSIBLE PRIOR INFERIOR CA SEE SCANNED DOWNTIME REPORT MTDD
[2020-06-12 21:04] LABS: ALBUMIN 2.9 GM/DL (3.2-5.2); BILIRUBIN,TOTAL 0.4 MG/DL (0.2-1.0); CALCIUM LEVEL 8.6 MG/DL (8.8-10.2); CREATININE FOR GFR 5.39 MG/DL (0.70-1.30); FOLATE 9.9 NG/ML (>5.4); GLOMERULAR FILTRATION RATE 11.3 (>49); PERCENT SATURATION 32.9 % (19.7-50.0); POTASSIUM SERUM 3.8 MEQ/L (3.5-5.1); TOTAL PROTEIN 6.3 GM/DL (6.4-8.2)
[2020-07-07 14:41] LABS: HEMATOCRIT 29.5 % (42.0-52.0); HEMOGLOBIN 9.7 g/dl (13.5-17.5); MEAN CORPUSCULAR HEMOGLOBIN 33.8 pg (27.0-33.0); MEAN CORPUSCULAR HGB CONC 32.9 g/dl (32.0-36.5); MEAN CORPUSCULAR VOLUME 102.8 fl (80.0-96.0); PLATELET COUNT, AUTOMATED 208 10^3/uL (150-450); RED BLOOD COUNT 2.87 10^6/uL (4.30-6.10); WHITE BLOOD COUNT 4.5 10^3/uL (4.0-10.0)
== END 2020-04-06 15:57 | disposition home or self-care (01) | DRG 291 ==
LOC: M ED 14:00 → EEVIPCON 16:30 → M PCU 16:30
PROVIDERS: ADMIT Internal Medicine; ATTEND Internal Medicine
PROC: 30233N1 Transfusion of Nonautologous Red Blood Cells into Peripheral Vein, Percutaneous Approach (ICD-10-PCS; principal; 2020-04-02)
PROC: 5A1D70Z Performance of Urinary Filtration, Intermittent, Less than 6 Hours Per Day (ICD-10-PCS; 2020-04-05)
DX: I13.2 Hypertensive heart and chronic kidney disease with heart failure and with stage 5 chronic kidney disease, or end stage renal disease (principal); N18.6 End stage renal disease; K92.2 Gastrointestinal hemorrhage, unspecified; D63.1 Anemia in chronic kidney disease; D50.9 Iron deficiency anemia, unspecified; E11.9 Type 2 diabetes mellitus without complications; I25.10 Atherosclerotic heart disease of native coronary artery without angina pectoris; Z95.2 Presence of prosthetic heart valve; Z79.4 Long term (current) use of insulin; I50.9 Heart failure, unspecified

== ENCOUNTER → 2020-05-13 | Outpatient (CLI) | payer MEDICARE ==
[~2020-05-13] MED LIST changes: +ALB2.5NEB NEB; +ALBU83IN INH; +LOSA50TA88; +LOSA50TA88 PO; +PRED20TA PO
== END ==
LOC: M RAD 12:11
PROVIDERS: ATTEND Physician Assistant
DX: I70.213 Atherosclerosis of native arteries of extremities with intermittent claudication, bilateral legs (principal); Z95.828 Presence of other vascular implants and grafts

== ENCOUNTER 2020-05-26 16:43 | Emergency (ER) | payer MEDICARE ==
[~2020-05-26] VITALS: Ht 165.1 cm; Wt 75.0 kg
[~2020-05-26 16:43] MED LIST changes: -ALB2.5NEB NEB; -ALBU83IN INH; -LOSA50TA88; -LOSA50TA88 PO; -PRED20TA PO
[2020-05-26 17:37] LABS: BASO % 0.7 % (0.0-1.0); EOS # 0.1 10^3/uL (0.0-0.5); EOS % 1.9 % (0.0-3.0); HEMATOCRIT 30.1 % (42.0-52.0); HEMOGLOBIN 10.4 g/dl (13.5-17.5); LYMPH # 0.8 10^3/uL (1.5-5.0); LYMPH % 19.1 % (24.0-44.0); MEAN CORPUSCULAR HEMOGLOBIN 36.5 pg (27.0-33.0); MEAN CORPUSCULAR HGB CONC 34.6 g/dl (32.0-36.5); MEAN CORPUSCULAR VOLUME 105.6 fl (80.0-96.0); MONO # 0.5 10^3/uL (0.0-0.8); MONO % 10.6 % (0.0-5.0); NEUTROPHILS # 2.9 10^3/uL (1.5-8.5); NEUTROPHILS % 67.2 % (36.0-66.0); PLATELET COUNT, AUTOMATED 156 10^3/uL (150-450); RED BLOOD COUNT 2.85 10^6/uL (4.30-6.10); WHITE BLOOD COUNT 4.3 10^3/uL (4.0-10.0)
[2020-05-26] MEDS ORDERED: cloNIDine 0.1 MG TAB PO ONE (17:45)
--- NOTE | 2020-05-26 17:54 | REPVR ---
PROCEDURE INFORMATION: Exam: CT Head Without Contrast Exam date and time: 05/26/2020 5:39 PM Age: 69 years old Clinical indication: Pain; Headache; Additional info: Severe headache TECHNIQUE: Imaging protocol: Computed tomography of the head without contrast. Radiation optimization: All CT scans at this facility use at least one of these dose optimization techniques: automated exposure control; mA and/or kV adjustment per patient size (includes targeted exams where dose is matched to clinical indication); or iterative reconstruction. COMPARISON: CT Head without contrast 07/09/2019 11:37 PM FINDINGS: Brain: There is no evidence of intracranial hemorrhage. No abnormal extra-axial fluid collections are identified. No mass effect or midline shift is seen. Young-white differentiation is preserved throughout. Ventricles: No ventriculomegaly. Bones/joints: Unremarkable. No acute fracture. Paranasal sinuses: The visualized sinuses are unremarkable. Mastoid air cells: There is no mastoid effusion detected. Vasculature: Atherosclerotic vascular disease is noted at the level of the skull base. Other findings: No adverse several is. IMPRESSION: No acute intracranial pathology demonstrated by CT. Electronically signed by: Stephania Bruce On 05/26/2020 17:53:58 PM
[2020-05-26 17:55] LABS: ALBUMIN 3.2 GM/DL (3.2-5.2); BILIRUBIN,DIRECT 0.1 MG/DL (0.0-0.2); BILIRUBIN,TOTAL 0.3 MG/DL (0.2-1.0); CREATININE FOR GFR 3.88 MG/DL (0.70-1.30); GLOMERULAR FILTRATION RATE 16.5 (>49); POTASSIUM SERUM 4.3 MEQ/L (3.5-5.1); TOTAL PROTEIN 6.6 GM/DL (6.4-8.2)
[2020-05-26] MEDS ORDERED: hydrALAZINE 20MG/ML 1ML VIAL (J0360 PER 20MG) IV STA ×2 (18:30→19:31)
[2020-05-26] MEDS ORDERED: diphenhydrAMINE 50MG/ML VIAL (J1200) IV STA (20:15)
[2020-05-26] MEDS ORDERED: METOCLOPRAMIDE INJ 10MG/2ML VIAL (J2765 PER 1) IV ONE (20:15)
[2020-05-26] MEDS ORDERED: ACETAMINOPHEN TAB 650MG DOSE (2X325MG) PO ONE (20:30)
[2020-05-26 21:26] VITALS: BP 162/65
[2020-05-26] MEDS ORDERED: LABETALOL 200 MG TAB PO ONE (21:45)
[2020-05-26 21:59] VITALS: BP 175/75
--- NOTE | 2020-05-28 11:47 | ECGEPIP ---
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
== END 2020-05-26 22:09 | disposition home or self-care (01) ==
LOC: M ED 16:43
DX: I12.9 Hypertensive chronic kidney disease with stage 1 through stage 4 chronic kidney disease, or unspecified chronic kidney disease (principal); G44.209 Tension-type headache, unspecified, not intractable; E11.9 Type 2 diabetes mellitus without complications; J44.9 Chronic obstructive pulmonary disease, unspecified; N18.9 Chronic kidney disease, unspecified; J45.909 Unspecified asthma, uncomplicated; I25.2 Old myocardial infarction; K21.9 Gastro-esophageal reflux disease without esophagitis; Z99.2 Dependence on renal dialysis; Z79.899 Other long term (current) drug therapy; Z79.82 Long term (current) use of aspirin; Z79.4 Long term (current) use of insulin; Z88.1 Allergy status to other antibiotic agents; Z88.2 Allergy status to sulfonamides; Z88.8 Allergy status to other drugs, medicaments and biological substances
CPT/HCPCS: 70450; 80053; 82248; 85025; 93005; 96374; 96375; 99285; J0360; J1200; J2765

== ENCOUNTER 2020-06-07 16:14 | Emergency (ER) | payer MEDICARE ==
[~2020-06-07] VITALS: Ht 165.1 cm; Wt 74.1 kg
[2020-06-07 16:19] VITALS: BP 181/77
[2020-06-07] MEDS ORDERED: LOSA50TA88 (16:26)
--- NOTE | 2020-06-08 07:30 | ECGEPIP ---
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
== END 2020-06-07 18:11 | disposition home or self-care (01) ==
LOC: M ED 16:14
DX: R00.2 Palpitations (principal); R94.31 Abnormal electrocardiogram [ECG] [EKG]; I25.10 Atherosclerotic heart disease of native coronary artery without angina pectoris; I25.2 Old myocardial infarction; I12.0 Hypertensive chronic kidney disease with stage 5 chronic kidney disease or end stage renal disease; Z99.2 Dependence on renal dialysis; E11.9 Type 2 diabetes mellitus without complications; E78.5 Hyperlipidemia, unspecified; Z88.1 Allergy status to other antibiotic agents; Z88.2 Allergy status to sulfonamides; Z88.8 Allergy status to other drugs, medicaments and biological substances; Z79.899 Other long term (current) drug therapy

== ENCOUNTER 2020-07-05 03:12 | Emergency (ER) | payer MEDICARE ==
[~2020-07-05] VITALS: Ht 165.1 cm; Wt 72.7 kg
[~2020-07-05 03:12] MED LIST changes: +LOSA50TA88
[2020-07-05] MEDS ORDERED: IPRATROPIUM 0.5MG/ALBUTEROL 2.5MG INH SOL UD 3ML (DUONEB) NEB PRN (03:30)
[2020-07-05 03:54] LABS: BASO % 0.7 % (0.0-1.0); EOS # 0.2 10^3/uL (0.0-0.5); EOS % 2.9 % (0.0-3.0); HEMATOCRIT 28.8 % (42.0-52.0); HEMOGLOBIN 9.3 g/dl (13.5-17.5); LYMPH # 0.7 10^3/uL (1.5-5.0); LYMPH % 12.4 % (24.0-44.0); MEAN CORPUSCULAR HEMOGLOBIN 34.8 pg (27.0-33.0); MEAN CORPUSCULAR HGB CONC 32.3 g/dl (32.0-36.5); MEAN CORPUSCULAR VOLUME 107.9 fl (80.0-96.0); MONO # 0.3 10^3/uL (0.0-0.8); MONO % 6.1 % (0.0-5.0); NEUTROPHILS # 4.3 10^3/uL (1.5-8.5); PLATELET COUNT, AUTOMATED 209 10^3/uL (150-450); RED BLOOD COUNT 2.67 10^6/uL (4.30-6.10); WHITE BLOOD COUNT 5.6 10^3/uL (4.0-10.0)
[2020-07-05 04:17] LABS: ABG BASE EXCESS 0.7 (-2.0-2.0); ABG HCO3 25.7 MEQ/L (22.0-26.0); ABG O2 SATURATION 95.3 % (95.0-99.0); ABG PARTIAL PRESSURE CO2 42.8 mmHg (35.0-45.0); ABG PARTIAL PRESSURE O2 79.7 mmHg (75.0-100.0); ABG STANDARD HCO3 25.1 MEQ/L (22.0-26.0); ABG pH (ARTERIAL) 7.396 UNITS (7.350-7.450)
[2020-07-05 04:29] LABS: ALBUMIN 2.8 GM/DL (3.2-5.2); ALT/SGPT 25 U/L (12-78); BILIRUBIN,DIRECT < 0.1 MG/DL (0.0-0.2); BILIRUBIN,TOTAL 0.4 MG/DL (0.2-1.0); CK-MB VALUE MASS 2.4 NG/ML (<3.6); CPK CREATINE PHOSPHOKINASE 77 U/L (39-308); MB/CK RELATIVE INDEX 3.12 (< OR =4); NT-PRO BNP 30536 PG/ML (<125); THYROXINE (T4) 5.7 UG/DL (4.5-12.0); TOTAL PROTEIN 6.1 GM/DL (6.4-8.2); TROPONIN I < 0.02 NG/ML (< 0.10)
[2020-07-05] MEDS ORDERED: COMBIVENT RESPIMAT 100-20MCG INHALER 4GM INH SCH (04:30)
[2020-07-05] MEDS ORDERED: COMBIVENT RESPIMAT 100-20MCG INHALER 4GM INH PRN (04:57)
[2020-07-05] MEDS ORDERED: IPRATROPIUM 0.5MG/ALBUTEROL 2.5MG INH SOL UD 3ML (DUONEB) NEB ONE (06:15)
--- NOTE | 2020-07-05 06:32 | REPVR ---
PROCEDURE INFORMATION: Exam: XR Chest, 1 View Exam date and time: 07/05/2020 5:56 AM Age: 70 years old Clinical indication: Cough and dyspnea; Additional info: Dyspnea/cough TECHNIQUE: Imaging protocol: XR of the chest Views: 1 view. COMPARISON: CR Chest, 2 view PA, Lat 04/02/2020 3:06 PM FINDINGS: Lungs: Hyperinflation with interstitial/airspace disease, the latter which is asymmetrically left-sided in location. Pleural space: No significant pleural effusion. Heart/Mediastinum: Cardiomegaly. Bones/joints: Degenerative change. IMPRESSION: Hyperinflation with interstitial/airspace disease, the latter which is asymmetrically left-sided in location. Electronically signed by: Jose Garcia On 07/05/2020 06:32:20 AM
[2020-07-05] MEDS ORDERED: ALB2.5NEB NEB (08:22)
[2020-07-05] MEDS ORDERED: PRED20TA PO (08:28)
[2020-07-05] MEDS ORDERED: methylPREDNISolone 125MG 2ML VIAL IV ONE (08:30)
[2020-07-05] MEDS ORDERED: predniSONE 20 MG TAB PO ONE (08:30)
[2020-07-05 08:58] VITALS: BP 157/79
--- NOTE | 2020-07-05 09:01 | CR.PDOC ---
General Date of Consultation: Jul 05, 2020 Consultation REASON FOR CONSULTATION/CHIEF COMPLAINT: SOB/COPD exaxcerbation for possible admission HISTORY OF PRESENT ILLNESS: 70 year old male with PMH of ESRD on HD , , sat, COPD only on combivent prn at home other long acting inhalors not covered by insurance, type 1 DM, PAD, spinal stenosis, CAD s/p angioplasty and stents, HTN, h/o Vi fib cardiac arrest in ED in Jul 2018 with residual encephalopathy, Duodenal AVMs, chronic anemia presented to ED with SOB which started last night. he used his inhalor once without any relief so his called the ambulance. Patient reports this attacks happen always on saturday night or early saturday when he has a gap of 2 days from HD. He did report also cough and phlegm. initially he was hypoxic requiring oxygen on presentation to ED. Resp panel was negative. After getting duonebs x1 and combivent x 1 in the ED he felt much better and he was no longer requiring any oxygen. On my interview he denied any further SOB or wheezing or cough. He was saturating at 93% in room air. He denies any fever or chills, denies any chest pain or palpitation, denies any abdominal pain , nausea or vomtiing or diarreha, deneis any leg swelling. Denies any light headedness or dizziness. ALLERGIES: Please see below. HOME MEDICATIONS: Please see below. PAST MEDICAL HISTORY: ESRD on HD , , sat, COPD only on combivent prn at home other long acting inhalors not covered by insurance, type 1 DM, PAD, spinal stenosis, CAD s/p angioplasty and stents, HTN, h/o Vi fib cardiac arrest in ED in Jul 2018 with residual encephalopathy, Duodenal AVMs, chronic anemia, adenomatous polyps, peripheral neuropathy, retinopathy with h/o vitreous hemorrhage, chronic headache, crystal arthropathy of the right knee, dysthymia, SURGICAL HISTORY: PCI FEMORAL ARTERIES 2006 EGDs and COLONOSCOPIES MULTIPLE RIGHT FEMOROPOPLITEAL BYPASS WITH RIGHT SECOND TOE AMPUTATION- DR HAYS 05/2008 BILATERAL LE ANGIOPLASTIES 11/2008 RIGHT ILILFENORAL BYPASS GRAFT 04/2009 BILATERAL CATARACTS REMOVAL-LEFT EYE FIRST 09/01/2009 FEMORAL-POPLITEAL BYPASS- LEFT SIDE 07/26/2011 A-V FISTULA PLACEMENT FOR DIALYSIS ACCESS, WITH SUBSEQUEN MULTIPLE PROCEDURES TO IMPROVE FLOW COLONOSCOPY WITH POYPECTOMY/EGD TIMES2/CAPSULE ENTEROSCOPY FAMILY HISTORY: FATHER OF COMPLICATIONS OF PNEUMONIA. MOTHER AFFLICTED WITH CAD,OSTEOPOROSIS, HYPERLIPIDEMIA, HYPERTENSION. SOCIAL HISTORY: Marital status and/or living arrangements: Alberto, lives with . Tobacco use: Quit 2007 ETOH: No Illicit drug use: No REVIEW OF SYSTEMS: All 11 point review of systen are neagative expect those in HPI. PHYSICAL EXAMINATION: VITAL SIGNS: Please see below. GENERAL APPEARANCE: Laying down flat in bed in no distress, awake, alert and oriented. HEENT: NC/AT, moist mucous membranes , anicteric eyes RESPIRATORY: Bilateral basal crackles, no ronchi or wheezing. CARDIOVASCULAR: Normal heart rate, regular rhythm, normal S1, S2, no rub or gallop ABDOMEN: Soft, nontender, bowel sounds normal. EXTREMITIES: No edema NEUROLOGICAL: No focal neurodeficits. LABORATORY DATA: Please see below. ASSESSMENT/PLAN: 70 year old male with PMH of ESRD on HD , , sat, COPD only on combivent prn at home other long acting inhalors not covered by insurance, type 1 DM, PAD, spinal stenosis, CAD s/p angioplasty and stents, HTN, h/o Vi fib cardiac arrest in ED in Jul 2018 with residual encephalopathy, Duodenal AVMs, chronic anemia presented to ED with SOB which started last night which has now resolved. SOB combination of mild fluid overload due to 2 days gap in HD and COPD exacerbation. He is directed to be extra cautious about his fluid intake on the 2 day gap. It has now resolved with duonebs. recommend prednisone short course. Continue duonebs prn at home Patient does not need admission at this time ESRD patient is due for HD today at 10 am. He is advised to directly go to his HD unit after his discharge. He is agreeable to the plan. DM type 1 He is on insulin pump. I expect his sugars are going to be high for the next few days while he is on prednisone so instructed. Other chronic medical conditions He is to continue his home meds. follow up with PMD. Vital Signs/I&O Vital Signs Date Time Temp Pulse Resp B/P (MAP) Pulse Ox O2 Delivery O2 Flow Rate FiO2 07/05/20 08:01 57 90 07/05/20 08:00 165/80 (108) 07/05/20 07:31 97.7 18 Room Air 07/05/20 05:27 2.0 Laboratory Data Labs 24H Laboratory Tests 2 07/05/20 03:18: Lactic Acid Level 1.2 07/05/20 03:46: Immature Granulocyte % (Auto) 0.9, Neutrophils (%) (Auto) 77.0H, Lymphocytes (%) (Auto) 12.4L, Monocytes (%) (Auto) 6.1H, Eosinophils (%) (Auto) 2.9, Basophils (%) (Auto) 0.7, Neutrophils # (Auto) 4.3, Lymphocytes # (Auto) 0.7L, Monocytes # (Auto) 0.3, Eosinophils # (Auto) 0.2, Basophils # (Auto) 0.0, Nucleated Red Blood Cells % (auto) 0.0 07/05/20 03:48: Total Bilirubin 0.4, Direct Bilirubin < 0.1, Aspartate Amino Transf (AST/SGOT) 21, Alanine Aminotransferase (ALT/SGPT) 25, Alkaline Phosphatase 88, Total Creatine Kinase 77, Creatine Kinase MB 2.4, Creatine Kinase MB Relative Index 3.12, Troponin I < 0.02, DB-Yit-S-Type Natriuretic Peptide 75636B, Total Protein 6.1L, Albumin 2.8L, Albumin/Globulin Ratio 0.8, Thyroid Stimulating Hormone (TSH) 3.230, Thyroxine (T4) 5.7 07/05/20 04:01: Blood Gas Bicarbonate Standard 25.1, Arterial Blood pH 7.396, Arterial Blood Partial Pressure CO2 42.8, Arterial Blood Partial Pressure O2 79.7, Arterial Blood Total CO2 27.0, Arterial Blood HCO3 25.7, Arterial Blood Base Excess 0.7, Arterial Blood Oxygen Saturation 95.3 CBC/BMP Laboratory Tests 07/05/20 03:46 Microbiology Microbiology 07/05/20 Blood Culture, Received Pending 07/05/20 Respiratory Virus Panel (PCR) ([facility]) - Final, Complete 07/05/20 Blood Culture, Received Pending Allergies Coded Allergies: Quinolones (Verified Allergy, Mild, RASH, 02/16/19) CHARLES Inhibitors (Verified Adverse Reaction, Intermediate, ARF, 02/16/19) NSAIDS (Non-Steroidal Anti-Inflamma (Verified Adverse Reaction, Intermediate, KIDNEY DAMAGE, 02/16/19) celecoxib (Verified Adverse Reaction, Intermediate, KIDNEY DAMAGE, 02/16/19) gabapentin (Verified Adverse Reaction, Intermediate, personality changes, 02/17/19) ibuprofen (Verified Adverse Reaction, Intermediate, KIDNEY DAMAGE, 02/16/19) lisinopril (Verified Adverse Reaction, Intermediate, RENAL FAILURE, 02/16/19) sulfamethoxazole (Verified Adverse Reaction, Intermediate, RENAL FAILURE, 02/16/19) trimethoprim (Verified Adverse Reaction, Intermediate, RENAL FAILURE, 02/16/19) cefazolin (Verified Adverse Reaction, Mild, DIZZINESS, 02/16/19) cyclobenzaprine (Verified Adverse Reaction, Mild, DIZZINESS, 02/16/19) hydrochlorothiazide (Verified Adverse Reaction, Mild, DIZZINESS, 02/16/19) triamterene (Verified Adverse Reaction, Mild, DIZZINESS, 02/16/19) Home Medications Scheduled Albuterol Sulfate (Albuterol Sulfate) 2.5 Mg/0.5 Ml Vial.neb, 1 VIAL NEB Q4H for shortness of breath for 10 Days, #60 Aspirin (Aspirin EC) 81 Mg Tab, 81 MG PO DAILY, (Reported) Atorvastatin Calcium (Atorvastatin Calcium) 80 Mg Tab, 80 MG PO QPM, (Reported) 1600 Calcitriol (Calcitriol) 0.25 Mcg Capsule, 0.25 MCG PO 3XW, (Reported) SATURDAY, SATURDAY, AND SATURDAY AT DIALYSIS Calcium Carbonate (Calcium) 600 Mg Tab, 600 MG PO QPM, (Reported) 1600 Citalopram Hydrobromide (Citalopram HBr) 40 Mg Tab, 40 MG PO DAILY, (Reported) Clonidine HCl (Clonidine HCl) 0.1 Mg Tablet, 0.1 MG PO BID, (Reported) Clopidogrel Bisulfate (Clopidogrel) 75 Mg Tab, 75 MG PO DAILY, (Reported) Ergocalciferol (Vitamin D2) (Vitamin D2) 50,000 Units Cap, 50,000 UNITS PO 1XWK, (Reported) SATURDAY Ferrous Sulfate (Ferrous Sulfate) 325 Mg Tablet.dr, 325 MG PO DAILY, (Reported) Insulin Human Lispro (Humalog) 100 Unit/1 Ml Vial, 1 DOSE SC ASDIRECTED, (Reported) VIA INSULIN PUMP: 0000 - 0400 : 0.6 UNITS/HR 0400 - 2100 : 0.3 UNITS/HR 2100 - 0000 : 0.6 UNITS/HR CARB RATIO 12 CARBS PER UNIT Labetalol HCl (Labetalol HCl) 200 Mg Tablet, 200 MG PO BID, (Reported) Mirtazapine (Remeron) 15 Mg Tablet, 45 MG PO QHS, (Reported) Pantoprazole Sodium (Pantoprazole Sodium) 40 Mg Tab, 40 MG PO BID, (Reported) Prednisone (Prednisone) 20 Mg Tablet, 1 TAB PO BID for 3 Days, #6 Spironolactone (Spironolactone) 25 Mg Tab, 25 MG PO BID, (Reported) Scheduled PRN Hydrocodone/Acetaminophen (Hydrocodone-Acetamin 5-325 mg) 1 Each Tablet, 1 TAB PO Q6H PRN for PAIN, (Reported) Ipratropium/Albuterol Sulfate (Combivent Respimat 20-100 Mcg) 4 Gm Mist.inhal, 2 PUFF INH Q4H PRN for SOB/WHEEZING, (Reported) Miscellaneous Medications Losartan Potassium (Losartan Potassium) 50 Mg Tablet, (Reported) RIP ROSS MD Jul 05, 2020 09:01
--- NOTE | 2020-07-05 09:38 | ECGEPIP ---
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
== END 2020-07-05 08:59 | disposition home or self-care (01) ==
LOC: M ED 03:12
DX: J44.1 Chronic obstructive pulmonary disease with (acute) exacerbation (principal); J84.9 Interstitial pulmonary disease, unspecified; R06.00 Dyspnea, unspecified; I25.10 Atherosclerotic heart disease of native coronary artery without angina pectoris; I10 Essential (primary) hypertension; E10.9 Type 1 diabetes mellitus without complications; Z79.82 Long term (current) use of aspirin; Z79.51 Long term (current) use of inhaled steroids; Z79.899 Other long term (current) drug therapy; Z88.6 Allergy status to analgesic agent; Z88.8 Allergy status to other drugs, medicaments and biological substances; Z95.5 Presence of coronary angioplasty implant and graft; Z99.2 Dependence on renal dialysis

== ENCOUNTER 2020-07-14 13:51 | Inpatient (IN) | payer MEDICARE ==
[~2020-07-14] VITALS: Ht 165.1 cm; Wt 69.4 kg
[~2020-07-14 13:51] MED LIST changes: +ALB2.5NEB NEB; +PRED20TA PO
[2020-07-14] MEDS ORDERED: COMBIVENT RESPIMAT 100-20MCG INHALER 4GM INH ONE (14:30)
[2020-07-14 15:03] LABS: BASO % 0.5 % (0.0-1.0); EOS # 0.1 10^3/uL (0.0-0.5); EOS % 1.6 % (0.0-3.0); HEMOGLOBIN 8.6 g/dl (13.5-17.5); LYMPH # 0.5 10^3/uL (1.5-5.0); LYMPH % 8.2 % (24.0-44.0); MEAN CORPUSCULAR HEMOGLOBIN 34.7 pg (27.0-33.0); MEAN CORPUSCULAR HGB CONC 33.1 g/dl (32.0-36.5); MEAN CORPUSCULAR VOLUME 104.8 fl (80.0-96.0); MONO # 0.9 10^3/uL (0.0-0.8); MONO % 14.3 % (0.0-5.0); NEUTROPHILS # 4.7 10^3/uL (1.5-8.5); NEUTROPHILS % 74.8 % (36.0-66.0); PLATELET COUNT, AUTOMATED 190 10^3/uL (150-450); RED BLOOD COUNT 2.48 10^6/uL (4.30-6.10); WHITE BLOOD COUNT 6.3 10^3/uL (4.0-10.0)
[2020-07-14 15:14] LABS: INR 0.99; PROTHROMBIN TIME 13.3 SECONDS (12.5-14.3)
[2020-07-14 15:15] LABS: PARTIAL THROMBOPLASTIN TIME 32.2 SECONDS (24.2-38.5)
[2020-07-14 15:48] LABS: BLOOD UREA NITROGEN 16 MG/DL (7-18); CARBON DIOXIDE LEVEL 34 MEQ/L (21-32); CHLORIDE LEVEL 97 MEQ/L (98-107); CREATININE FOR GFR 3.54 MG/DL (0.70-1.30); GLOMERULAR FILTRATION RATE 18.3 (>49); GLUCOSE, FASTING 226 MG/DL (70-100); POTASSIUM SERUM 3.1 MEQ/L (3.5-5.1); SODIUM LEVEL 137 MEQ/L (136-145)
[2020-07-14 15:49] LABS: ALBUMIN 2.6 GM/DL (3.2-5.2); ALT/SGPT 21 U/L (12-78); BILIRUBIN,DIRECT 0.1 MG/DL (0.0-0.2); BILIRUBIN,TOTAL 0.6 MG/DL (0.2-1.0); CALCIUM LEVEL 8.2 MG/DL (8.8-10.2); CK-MB VALUE MASS 1.8 NG/ML (<3.6); CPK CREATINE PHOSPHOKINASE 73 U/L (39-308); MB/CK RELATIVE INDEX 2.47 (< OR =4); NT-PRO BNP 68721 PG/ML (<125); TOTAL PROTEIN 5.8 GM/DL (6.4-8.2); TROPONIN I < 0.02 NG/ML (< 0.10)
[2020-07-14] MEDS ORDERED: POTASSIUM CHLORIDE 10 MEQ SR TABLET PO ONE (16:30)
--- NOTE | 2020-07-14 17:19 | REP ---
INDICATION: SOB. COMPARISON: Comparison July 05, 2020. TECHNIQUE: Two views.. FINDINGS: Cardiomegaly is again observed. Cardiothoracic ratio on the frontal radiograph measures 56.3%. Pulmonary vasculature is cephalized. Interstitial markings are slightly prominent but improved when compared with the interstitial edema pattern seen on July 05, 2020. Lateral radiograph shows blunting of the posterior pleural angles and some fissural thickening. No focal infiltrate is seen. IMPRESSION: CHF pattern with small bilateral effusions and cardiomegaly. Vascular congestion. No abril pulmonary edema. <Electronically signed by Kris Willingham > 07/14/20 [id number]
[2020-07-14] MEDS ORDERED: FUROSEMIDE 40MG/4ML VIAL (J1940) IV ONE (18:15)
[2020-07-14] MEDS ORDERED: ALBU83IN INH (19:35)
[2020-07-14] MEDS ORDERED: LOSA50TA88 PO (19:35)
[2020-07-14] MEDS ORDERED: MOM 30ML SUSPENSION UDC PO PRN (21:00)
[2020-07-14] MEDS ORDERED: GLUCOSE 4GM CHEW TABLET PO PRN (21:00)
[2020-07-14] MEDS ORDERED: NORCO, ANEXSIA 5/325MG TABLET (HYDROcodone/ACETAMINOPHEN) PO PRN (21:00)
[2020-07-14] MEDS ORDERED: GLUCAGON INJ 1MG VIAL SC PRN (21:00)
[2020-07-14] MEDS ORDERED: IPRATROPIUM 0.5MG/ALBUTEROL 2.5MG INH SOL UD 3ML (DUONEB) NEB PRN (21:00)
[2020-07-14] MEDS ORDERED: MAALOX 30 ML SUSP *UDC PO PRN (21:00)
[2020-07-14] MEDS ORDERED: DEXTROSE 50% 50 ML SYRINGE IV PRN (21:00)
[2020-07-14 22:18] LABS: HEMATOCRIT 26.7 % (42.0-52.0); HEMOGLOBIN 8.7 g/dl (13.5-17.5); MEAN CORPUSCULAR HEMOGLOBIN 34.4 pg (27.0-33.0); MEAN CORPUSCULAR HGB CONC 32.6 g/dl (32.0-36.5); MEAN CORPUSCULAR VOLUME 105.5 fl (80.0-96.0); PLATELET COUNT, AUTOMATED 189 10^3/uL (150-450); RED BLOOD COUNT 2.53 10^6/uL (4.30-6.10); WHITE BLOOD COUNT 6.2 10^3/uL (4.0-10.0)
[2020-07-14 22:58] LABS: CK-MB VALUE MASS 1.5 NG/ML (<3.6); CPK CREATINE PHOSPHOKINASE 76 U/L (39-308); MB/CK RELATIVE INDEX 1.97 (< OR =4); TROPONIN I < 0.02 NG/ML (< 0.10)
--- NOTE | 2020-07-14 23:46 | HPEPDOC ---
[facility] Medical History & Physical Date of Admission Jul 14, 2020 Date of Service: Jul 14, 2020 Primary Care Physician: Abril Rosenberg Attending Physician: KALIA REYES MD History and Physical CHIEF COMPLAINT: Shortness of breath, cough HISTORY OF PRESENT ILLNESS: Patient is a 70-year-old male who presented to the emergency department today after a 2-3 week history of difficulty breathing. Patient states that his made him come to the emergency department after dialysis today because he began coughing and having more difficulty with breathing. Patient states that he is bringing up a clear frothy sputum. Patient gets dialysis on a Saturday, , and Saturday schedule and had received dialysis earlier in the day. Patient states that he's been feeling off for the past few weeks and he says when his system gets like this his blood pressure gets very high. Patient denies having any chest pain but he does feel winded at the moment. Patient states when he gets up and tries walk around he feels even more winded. Patient denies any other pain anywhere and denies feeling feverish. PAST MEDICAL HISTORY: 1. COPD. 2. Hypertension. 3. Type 1 diabetes mellitus. 4. Peripheral vascular disease 5. Spinal stenosis 6. Coronary artery disease 7. End-stage renal disease 8. Dysthymia 9. Anemia of renal disease 10. Sensory neuropathy 11. Hypercholesterolemia PAST SURGICAL HISTORY: 1. Bilateral submandibular gland excision. 2. PCI femoral arteries. 3. Colonoscopy in 2007. 4. Right femoral popliteal bypass with right second toe amputation 5. Bilateral lower extremity angioplasties 6. Right iliofemoral bypass graft 7. Bilateral cataracts 8. Femoral-popliteal bypass on the left lower extremity 9. AV fistula placement 10. Multiple EGDs and colonoscopies SOCIAL HISTORY: Patient lives at home with his . Patient is a former smoker but denies any current smoking. Patient denies any alcohol or illicit drug use. 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 REVIEW OF SYSTEMS: General: Patient denies fevers HEENT: Patient denies headaches Cardiovascular: Patient denies chest pain Respiratory: Patient reports shortness of breath and a productive cough with clear frothy sputum GI: Patient denies abdominal pain, nausea, vomiting, diarrhea : Patient reports that he does makes small amounts of urine and denies any pain with urination Extremities: Patient denies swelling or pain in extremities Neurological: Patient denies numbness or tingling in legs Skin: Patient denies any new rashes or lesions. Hematologic: Patient denies any easy bruising. Lymphatic: Patient denies any lumps lumps or bumps in neck, axilla, or groin HOME MEDICATIONS: Please see below. PHYSICAL EXAMINATION: VITAL SIGNS: See below General: Alert and oriented male patient who was laying on a stretcher when I walked into the room. Patient did not appear to be in any acute distress. HEENT: Normocephalic, atraumatic, moist mucous membranes. Neck: No lymphadenopathy or thyromegaly Cardiac: Regular rate and rhythm, no murmurs, normal S1, normal S2 Pulm: Bibasilar respiratory crackles. End expiratory wheezing was heard throughout the lung ernandez. The wheezing was also heard when the patient was breathing in the room. Abd: Nondistended, nontender to palpation, normal bowel sounds Ext: No edema bilateral lower extremities, 2/4 posterior tibial and dorsalis pedis pulses bilaterally. Skin: No evidence of rash or any other lesions. LABORATORY DATA: See below. IMAGING: Patient had chest x-ray performed on 07/14/2020 which was reported to show CHF pattern with small bilateral effusions and cardiomegaly. Vascular congestion, no abril pulmonary edema. MICROBIOLOGY: Please see below. ASSESSMENT: Patient is a 70-year-old male who presented to the emergency department with shortness of breath and a cough which seems to be multifactorial secondary to fluid overload from congestive heart failure, possible COPD exacerbation, or symptomatic anemia.. . PLAN: 1. Shortness of breath. Patient is a history of COPD as well as congestive heart failure. Patient is dialysis dependent and did receive dialysis today however, his chest x-ray does appear to show cardiomegaly and vascular congestion. Patient also is wheezing on exam which may be secondary to COPD or could be a cardiac wheeze. Patient is also more anemic than he usually is. Patient does have anemia of renal disease. At this time, patient was given 40 mg of IV Lasix has been given although the patient has not made much urine at this time. Nephrology consults should be replaced tomorrow for dialysis management. Patient does not appear to have an ammonia at this time so antibiotics have not been started. Respiratory panel was negative. 2. Productive cough. Patient is a productive cough of white frothy sputum which goes along with fluid overload from congestive heart failure. We will do Lasix as above and nephrology can be consult for possible dialysis tomorrow. 3. Anemia. Patient's hemoglobin is 8.6 today were patient usually runs around 10 for his hemoglobin. Patient did have a positive occult blood. At this time we will continue to monitor the patient's hemoglobin. Repeat hemoglobin 8 hours after arrival was 8.7 which is stable. Patient is not at the level for blood transfusion at this time. 4. Hypertension. Patient will continue his home blood pressure medications and w e will continue to monitor. Patient's blood pressure was quite elevated in the emergency department he was given his evening doses of antihypertensive medications. 5. End-stage renal disease. Patient is on a Saturday, , and Saturday dialysis schedule. Patient did receive his scheduled dialysis on , 07/14/2020. Nephrology can be consult by the morning team for dialysis management. 6. COPD. At this time we will continue to monitor the patient. Patient will receive nebulizer treatments. If these improve his breathing, corticosteroids can be given however, these have not been started at this time. 7. Type 1 diabetes. Patient is on insulin pump which she can continue to use. Patient is also on before meals at bedtime fingersticks. 8. Hyperlipidemia. Continue patient's home medications. 9. GERD. Continue patient's home pantoprazole. 10. DVT prophylaxis: Heparin 5000 twice a day. 11. CODE STATUS: DNR/DNI Vital Signs Vital Signs Date Time Temp Pulse Resp B/P (MAP) Pulse Ox O2 Delivery O2 Flow Rate FiO2 07/14/20 23:00 67 206/83 (124) 97 07/14/20 22:15 20 Nasal Cannula 2.0 07/14/20 13:52 98.4 Laboratory Data Labs 24H Laboratory Tests 2 07/14/20 14:36: Immature Granulocyte % (Auto) 0.6, Neutrophils (%) (Auto) 74.8H, Lymphocytes (%) (Auto) 8.2L, Monocytes (%) (Auto) 14.3H, Eosinophils (%) (Auto) 1.6, Basophils (%) (Auto) 0.5, Neutrophils # (Auto) 4.7, Lymphocytes # (Auto) 0.5L, Monocytes # (Auto) 0.9H, Eosinophils # (Auto) 0.1, Basophils # (Auto) 0.0, Nucleated Red Blood Cells % (auto) 0.0, Prothrombin Time 13.3, Prothromb Time International Ratio 0.99, Activated Partial Thromboplast Time 32.2, Anion Gap 6L, Glomerular Filtration Rate 18.3L, Calcium Level 8.2L, Total Bilirubin 0.6, Direct Bilirubin 0.1, Aspartate Amino Transf (AST/SGOT) 21, Alanine Aminotransferase (ALT/SGPT) 21, Alkaline Phosphatase 73, Total Creatine Kinase 73, Creatine Kinase MB 1.8, Creatine Kinase MB Relative Index 2.47, Troponin I < 0.02, [id number]-Type Natriu retic Peptide 20077H, Total Protein 5.8L, Albumin 2.6L, Albumin/Globulin Ratio 0.8, Thyroid Stimulating Hormone (TSH) 2.550, Free Thyroxine 1.20 07/14/20 22:12: Nucleated Red Blood Cells % (auto) 0.0, Total Creatine Kinase 76, Creatine Kinase MB 1.5, Creatine Kinase MB Relative Index 1.97, Troponin I < 0.02 CBC/BMP Laboratory Tests 07/14/20 14:36 07/14/20 22:12 Microbiology Microbiology 07/14/20 Respiratory Virus Panel (PCR) ([facility]) - Final, Complete Home Medications Scheduled Aspirin (Aspirin EC) 81 Mg Tab, 81 MG PO DAILY Atorvastatin Calcium (Atorvastatin Calcium) 80 Mg Tab, 80 MG PO QPM 1600 Calcitriol (Calcitriol) 0.25 Mcg Capsule, 0.25 MCG PO 3XW SATURDAY, SATURDAY, AND SATURDAY AT DIALYSIS Calcium Carbonate (Calcium) 600 Mg Tab, 600 MG PO QPM 1600 Citalopram Hydrobromide (Citalopram HBr) 40 Mg Tab, 40 MG PO DAILY Clonidine HCl (Clonidine HCl) 0.1 Mg Tablet, 0.1 MG PO BID Clopidogrel Bisulfate (Clopidogrel) 75 Mg Tab, 75 MG PO DAILY Ergocalciferol (Vitamin D2) (Vitamin D2) 50,000 Units Cap, 50,000 UNITS PO 1XWK SATURDAY Ferrous Sulfate (Ferrous Sulfate) 325 Mg Tablet.dr, 325 MG PO DAILY Insulin Human Lispro (Humalog) 100 Unit/1 Ml Vial, 1 DOSE SC ASDIRECTED VIA INSULIN PUMP: 0000 - 0400 : 0.6 UNITS/HR 0400 - 2100 : 0.3 UNITS/HR 2100 - 0000 : 0.6 UNITS/HR CARB RATIO 12 CARBS PER UNIT Labetalol HCl (Labetalol HCl) 200 Mg Tablet, 200 MG PO BID Losartan Potassium (Losartan Potassium) 50 Mg Tablet, 50 MG PO QHS Mirtazapine (Remeron) 15 Mg Tablet, 45 MG PO QHS Pantoprazole Sodium (Pantoprazole Sodium) 40 Mg Tab, 40 MG PO BID Spironolactone (Spironolactone) 25 Mg Tab, 25 MG PO BID Scheduled PRN Albuterol Sulf (Albuterol Sulfate) 2.5 Mg/3 Ml Vial.neb, 2.5 MG INH Q4H PRN for SHORTNESS OF BREATH Hydrocodone/Acetaminophen (Hydrocodone-Acetamin 5-325 mg) 1 Each Tablet, 1 TAB PO Q6H PRN for PAIN Ipratropium/Albuterol Sulfate (Combivent Respimat 20-100 Mcg) 4 Gm Mist.inhal, 2 PUFF INH Q4H PRN for SOB/WHEEZING Allergies Coded Allergies: Quinolones (Verified Allergy, Mild, RASH, 02/16/19) CHARLES Inhibitors (Verified Adverse Reaction, Intermediate, ARF, 02/16/19) NSAIDS (Non-Steroidal Anti-Inflamma (Verified Adverse Reaction, Intermediate, KIDNEY DAMAGE, 02/16/19) celecoxib (Verified Adverse Reaction, Intermediate, KIDNEY DAMAGE, 02/16/19) gabapentin (Verified Adverse Reaction, Intermediate, personality changes, 02/17/19) ibuprofen (Verified Adverse Reaction, Intermediate, KIDNEY DAMAGE, 02/16/19) lisinopril (Verified Adverse Reaction, Intermediate, RENAL FAILURE, 02/16/19) sulfamethoxazole (Verified Adverse Reaction, Intermediate, RENAL FAILURE, 02/16/19) trimethoprim (Verified Adverse Reaction, Intermediate, RENAL FAILURE, 02/16/19) cefazolin (Verified Adverse Reaction, Mild, DIZZINESS, 02/16/19) cyclobenzaprine (Verified Adverse Reaction, Mild, DIZZINESS, 02/16/19) hydrochlorothiazide (Verified Adverse Reaction, Mild, DIZZINESS, 02/16/19) triamterene (Verified Adverse Reaction, Mild, DIZZINESS, 02/16/19) A-FIB/CHADSVASC A-FIB History Current/History of A-Fib/PAF?: No GME ATTESTATION GME ATTESTATION My faculty preceptor for this patient encounter was physically present during the encounter and was fully available. All aspects of the patient interview, examination, medical decision making process, and medical care plan development were reviewed and approved by the faculty preceptor. The faculty preceptor is aware and concurs with the plan as stated in the body of this note and will attest to such by his/her cosignature. KINGA HAYES DO Jul 14, 2020 23:46
[2020-07-15] VITALS (10 sets, daily range): BP systolic 130–170; BP diastolic 50–82
[2020-07-15] MEDS: ATORVASTATIN 20 MG TAB PO SCH ×2 (00:27→17:15)
[2020-07-15] MEDS: LOSARTAN 50MG TABLET PO SCH ×2 (00:32→21:17)
[2020-07-15] MEDS: cloNIDine 0.1 MG TAB PO SCH ×3 (00:33→21:17)
[2020-07-15] MEDS: LABETALOL 200 MG TAB PO SCH ×3 (00:34→21:17)
[2020-07-15] MEDS: PANTOPRAZOLE 40MG TAB (PROTONIX) PO SCH ×3 (00:34→21:18)
[2020-07-15] MEDS: MIRTAZAPINE 15 MG TAB PO SCH ×2 (00:35→21:17)
[2020-07-15] MEDS: SPIRONOLACTONE 25 MG TAB PO SCH ×3 (00:35→21:17)
[2020-07-15] MEDS: ACETAMINOPHEN TAB 650MG DOSE (2X325MG) PO PRN ×3 (00:37→21:20)
[2020-07-15 02:54] LABS: HEMATOCRIT 25.3 % (42.0-52.0); HEMOGLOBIN 8.3 g/dl (13.5-17.5); MEAN CORPUSCULAR HEMOGLOBIN 34.4 pg (27.0-33.0); MEAN CORPUSCULAR HGB CONC 32.8 g/dl (32.0-36.5); PLATELET COUNT, AUTOMATED 186 10^3/uL (150-450); RED BLOOD COUNT 2.41 10^6/uL (4.30-6.10)
[2020-07-15 03:24] LABS: CK-MB VALUE MASS 1.8 NG/ML (<3.6); CPK CREATINE PHOSPHOKINASE 81 U/L (39-308); MB/CK RELATIVE INDEX 2.22 (< OR =4); TROPONIN I < 0.02 NG/ML (< 0.10)
[2020-07-15 05:34] LABS: HEMATOCRIT 24.7 % (42.0-52.0); HEMOGLOBIN 8.1 g/dl (13.5-17.5); MEAN CORPUSCULAR HEMOGLOBIN 34.8 pg (27.0-33.0); MEAN CORPUSCULAR HGB CONC 32.8 g/dl (32.0-36.5); PLATELET COUNT, AUTOMATED 183 10^3/uL (150-450); RED BLOOD COUNT 2.33 10^6/uL (4.30-6.10); WHITE BLOOD COUNT 5.5 10^3/uL (4.0-10.0)
[2020-07-15 06:00] LABS: CALCIUM LEVEL 8.6 MG/DL (8.8-10.2); CREATININE FOR GFR 5.47 MG/DL (0.70-1.30); GLOMERULAR FILTRATION RATE 11.1 (>49); POTASSIUM SERUM 4.1 MEQ/L (3.5-5.1)
[2020-07-15] MEDS: ASPIRIN 81 MG ENTERIC TAB PO SCH (09:00)
[2020-07-15] MEDS ORDERED: HEPARIN SOD (PORCINE) 5000UNITS/ML 1ML VIAL/SYRINGE SQ SCH (09:00)
--- NOTE | 2020-07-15 09:21 | ECGEPIP ---
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
[2020-07-15] MEDS: CLOPIDOGREL 75 MG TAB PO SCH (09:52)
[2020-07-15] MEDS: FERROUS SULFATE 325MG TAB PO SCH (09:52)
--- NOTE | 2020-07-15 11:51 | IPNPDOC ---
Text Note Date of Service The patient was seen on 07/15/20. NOTE CC: SOB, cough Subjective: Jonh Norwood is a 70 yr old male who presented to the ED complaining of shortness of breath and cough. Today, the patient has no complaints. When discussing with the patient in more deatil about his shortness of breath, the patient stated that it always occurs and describes it as labored breathing. He is unable to go up a flight of stairs and has exertion by the time he gets to the 3rd stairs. He sleeps flat on his bed and states that there is no shortness of breath when he is resting or relaxing. Patient noted he is a former smoker and quit 10-15 yrs ago, smoked for 1 pack a day for 30 years. Patient complained of lightheadedness, headache, SOB, cough, and wheezing. ROS: ROS is negative besides those mentioned above Objective: General: Patient in no acute distress Cardiovascular: RRR, no murmurs or gallops, normal S1 and S2 Respiratory: Crackles appreciated in lower lung bases bilaterally, inspiratory wheezing appreciated in right upper lung area GI: Abdomen soft, nontender, nondistended, normal bowel sounds x4, no hepatomegaly Extremities: +2/4 pedal pulses bilaterally, no pitting edema bilaterally Labs: See labs below Imaging: -Chest X-ray done on 07/14/[address] Willingham showed CHF pattern w/ small bilateral effusions and cardiomegaly, vascular congestion, no abril pulmonary edema Assessment: Jonh Norwood is a 70 yr old male w/ PMHx of COPD, hypertension, type 1 DM, peripheral vascular disease, spinal stenosis, CAD, End Stage Renal Disease, dysthimia, anemia of Renal Disease, Sensory Neuropathy, Hypercholester olemia presented to the ED w/ shortness of breath and cough. Patient continues to have crackles in lower lung base and along w/ chest x-ray findings and BNP levels patient consistent w/ CHF Plan: 1. SOB and cough 2/2 new onset CHF -Patient had imaging confirm CHF pattern and small bilateral effusions and BNP was 68,721 -Patient given Lasix 40 mg IV, did not urinate -Order 2D Echo to determine systolic vs. diastolic CHF -Will restrict salt in patient's diet 2. Acute blood loss Anemia in setting of end-stage renal disease -Patient's shortness of breath could also be due to anemia -Currently patient's hemoglobin is trending down from 8.3 to 8.1; patients baseline is roughly 10.0-11.0 -Patient has a positive FOB, last EGD and colonoscopy was done by Dr. Albarran on 07/07/19 which found pigmented gastric mucosa and diverticulosis; patient has no past medical history of colon cancer and no family history of colon cancer -1 unit of blood will be given w/ dialysis -Will order vitamin B12 and folate levels -Will order iron studies and reticulocyte count -Will hold aspirin and heparin 3. Hypertension -Patient presented to the ED w/ BP as high as 230/112 -Prescribed losartan and labetolol at home, was given antihypertensives in the ED -Patient currently has a BP of 152/50, will continue to monitor 4. End Stage Renal Disease -Patient most likely has end stage renal disease to type 1 DM nephropathy -Nephrology consulted, will dialyze patient today, consult appreciated 5. Type 1 DM -Patient can continue using insulin pump 6. COPD -Patient is a former smoker, smoked 1 pack a day for 30 years, quit 10-15 yrs ago -Currently on 2.0 L of O2 nasal cannula and duonebs 7. CAD, Hyperlipidemia, peripheral vascular disease -Patient currently on atorvastatin 8. DVT Prophylaxis -Will hold heparin and aspirin due to positive FOB 9. Code Status: DNR/DNI Dispo: Patient has dialysis being done today; will receive 2D echo for possible CHF findings VS,Fishbone, I+O VS, Fishbone, I+O Laboratory Tests 07/14/20 14:36 07/14/20 22:12 07/15/20 02:46 07/15/20 05:12 Vital Signs Date Time Temp Pulse Resp B/P (MAP) Pulse Ox O2 Delivery O2 Flow Rate FiO2 07/15/20 09:53 62 160/58 07/15/20 08:00 98.8 18 92 Nasal Cannula 2.0 I&O- Last 24 Hours up to 6 AM 07/15/20 05:59 Intake Total 0 ml Output Total 0 ml Balance 0 ml GME ATTESTATION GME ATTESTATION My faculty preceptor for this patient encounter was physically present during the encounter and was fully available. All aspects of the patient interview, examination, medical decision making process, and medical care plan development were reviewed and approved by the faculty preceptor. The faculty preceptor is aware and concurs with the plan as stated in the body of this note and will attest to such by his/her cosignature. ATTENDING NOTE Patient was seen and examined by me personally with the residents/students. I agree with the above assessment and plan ARGELIA GU OMS-IV Jul 15, 2020 11:51 BALJIT OTOOLE MD Jul 18, 2020 11:44
[2020-07-15 17:16] LABS: HEMATOCRIT 30.9 % (42.0-52.0); MEAN CORPUSCULAR HEMOGLOBIN 33.7 pg (27.0-33.0); PLATELET COUNT, AUTOMATED 186 10^3/uL (150-450); RED BLOOD COUNT 3.03 10^6/uL (4.30-6.10); WHITE BLOOD COUNT 5.3 10^3/uL (4.0-10.0)
[2020-07-15 17:38] LABS: HEMOGLOBIN 10.2 g/dl (13.5-17.5)
[2020-07-15 21:13] LABS: HEMOGLOBIN 9.5 g/dl (13.5-17.5); MEAN CORPUSCULAR HEMOGLOBIN 33.1 pg (27.0-33.0); MEAN CORPUSCULAR HGB CONC 32.8 g/dl (32.0-36.5); PLATELET COUNT, AUTOMATED 176 10^3/uL (150-450); RED BLOOD COUNT 2.87 10^6/uL (4.30-6.10); WHITE BLOOD COUNT 4.7 10^3/uL (4.0-10.0)
[2020-07-16] VITALS: BP 158/70
[2020-07-16 04:00] VITALS: BP 160/68
[2020-07-16 06:01] LABS: HEMATOCRIT 29.3 % (42.0-52.0); HEMOGLOBIN 9.7 g/dl (13.5-17.5); MEAN CORPUSCULAR HEMOGLOBIN 33.1 pg (27.0-33.0); MEAN CORPUSCULAR HGB CONC 33.1 g/dl (32.0-36.5); PLATELET COUNT, AUTOMATED 190 10^3/uL (150-450); RED BLOOD COUNT 2.93 10^6/uL (4.30-6.10)
[2020-07-16 06:22] LABS: BLOOD UREA NITROGEN 40 MG/DL (7-18); CALCIUM LEVEL 8.4 MG/DL (8.8-10.2); CARBON DIOXIDE LEVEL 31 MEQ/L (21-32); CHLORIDE LEVEL 100 MEQ/L (98-107); CREATININE FOR GFR 7.21 MG/DL (0.70-1.30); GLOMERULAR FILTRATION RATE 8.1 (>49); GLUCOSE, FASTING 205 MG/DL (70-100); MAGNESIUM LEVEL 2.2 MG/DL (1.8-2.4); POTASSIUM SERUM 3.9 MEQ/L (3.5-5.1); SODIUM LEVEL 138 MEQ/L (136-145)
[2020-07-16 08:00] VITALS: BP 210/90
--- NOTE | 2020-07-16 08:07 | ECGEPIP ---
[facility] Test Date: 2020-07-15 Pat Name: CHARLIE FUENTES Department: Room: [place] [address] Gender: Male Pmo Analyst: RADHA : 1950 Requested By: KINGA HAYES Order Number: [id number] Reading MD: Gorge Siu Measurements Intervals Streeter Rate: 58 P: 37 TX: 213 QRS: 60 QRSD: 89 T: 0 QT: 212 QTc: 209 Interpretive Statements SINUS BRADYCARDIA WITH FIRST DEGREE AV BLOCK Nonspecific ST-T wave abnormalities Similar to tracing done 07-14-20 Electronically Signed on 07-16-2020 8:07:48 EST by Gorge Siu
[2020-07-16 08:30] VITALS: BP 162/58
[2020-07-16] MEDS: SPIRONOLACTONE 25 MG TAB PO SCH (08:30)
[2020-07-16] MEDS: FERROUS SULFATE 325MG TAB PO SCH (08:30)
[2020-07-16] MEDS: ASPIRIN 81 MG ENTERIC TAB PO SCH (08:30)
[2020-07-16] MEDS: CLOPIDOGREL 75 MG TAB PO SCH (08:30)
[2020-07-16] MEDS: PANTOPRAZOLE 40MG TAB (PROTONIX) PO SCH (08:30)
[2020-07-16] MEDS: cloNIDine 0.1 MG TAB PO SCH (08:30)
[2020-07-16] MEDS: LABETALOL 200 MG TAB PO SCH (08:31)
[2020-07-16 08:53] LABS: HEMATOCRIT 30.2 % (42.0-52.0); HEMOGLOBIN 10.3 g/dl (13.5-17.5); MEAN CORPUSCULAR HEMOGLOBIN 33.9 pg (27.0-33.0); MEAN CORPUSCULAR HGB CONC 34.1 g/dl (32.0-36.5); MEAN CORPUSCULAR VOLUME 99.3 fl (80.0-96.0); PLATELET COUNT, AUTOMATED 197 10^3/uL (150-450); RED BLOOD COUNT 3.04 10^6/uL (4.30-6.10); WHITE BLOOD COUNT 5.5 10^3/uL (4.0-10.0)
[2020-07-16] MEDS ORDERED: CALCITRIOL 0.25 MCG CAP (S0169) PO SCH (09:00)
[2020-07-16 12:00] VITALS: BP 168/62
--- NOTE | 2020-07-16 13:29 | DS.PDOC ---
Discharge Summary General Date of Admission Jul 14, 2020 at 20:40 Date of Discharge 07/16/2020 Attending Physician: TIMO MAY MD Specialist/Consultants Involve: GRACY WALL MD @ Discharge Summary PROCEDURES PERFORMED DURING STAY: [None]. ADMITTING DIAGNOSES: 1. Acute on chronic Congestive Heart Failure exacerbation 2. ESRD on HD 3. Diabetes Mellitus type 1 4. Symptomatic Anemia 5. COPD DISCHARGE DIAGNOSES: 1. Acute on chronic Congestive Heart Failure exacerbation 2. ESRD on HD 3. Diabetes Mellitus type 1 4. Symptomatic Anemia 5. COPD COMPLICATIONS/CHIEF COMPLAINT: Acute Anemia. HISTORY OF PRESENT ILLNESS: Patient is a 70 year old male with a past medical history significant for CAD, PVD, DMII with ESRD on HD and COPD who presented to [facility] [place] with complaint of shortness of breath. Patient had stated that he had 2-3 weeks of shortness of breath. He states that he had an intermittent cough with clear sputum sometimes. He stated that he had just been feeling off. He denied any chest pain but felt more winded then usual. He had been compliant with dialysis and had recently went to dialysis the day before being admitted. On admission the patient was felt to be hypervolemic. He was given Lasix in the ED however the patient does not make urine and therefore he did not have much output. Additionally, the patient was found to have anemia with a drop in hgb to 8.6 from his baseline of 10. The patient was admitted for further evaluation and management HOSPITAL COURSE: On admission the patient was felt to be volume overloaded. He has bilateral crackles in the bases. Nephrology was consulted and the patient was sent for hemodialysis for fluid removal. Additionally, given his anemia he was given 1 unit PRBC. The patient was continued on aspirin given his history of CAD and PVD. He was found to be FoBT positive however he denied having any bloody stools or dark tarry stools. After dialysis and transfusion of 1 unit of blood the patient stated that he felt better. His hgb remained stable and he was found fit for discharge with follow-up with his PCP in 7-10 days DISCHARGE MEDICATIONS: Please see below. ALLERGIES: Please see below. PHYSICAL EXAMINATION ON DISCHARGE: VITAL SIGNS: Please see below. GENERAL: Awake, alert, and oriented. Appears in no acute distress. Lying in bed comfortably HEENT: Atraumatic, normocephalic. Eyes are nonicteric. Trachea is midline NECK: No palpable cervical, axillary, or supraclavicular lymphadenopathy CARDIOVASCULAR EXAMINATION: Normal S1, S2. Regular rate and rhythm. No clicks, r ubs, or murmurs RESPIRATORY EXAMINATION: Slight crackles in the bases bilaterally. Overall decreased breath sounds throughout. No wheezes or rhonchi ABDOMINAL EXAMINATION: Soft, nondistended. Nontender. Normoactive bowel sounds throughout EXTREMITIES: no edema. full and equal pulses in bilateral upper and lower extremities SKIN: No rashes or lesions NEUROLOGICAL EXAMINATION: No focal neurological deficits PSYCHIATRIC EXAMINATION: Mood and affect appear appropriate LABORATORY DATA: Please see below. IMAGING: INDICATION: SOB. COMPARISON: Comparison July 05, 2020. TECHNIQUE: Two views.. FINDINGS: Cardiomegaly is again observed. Cardiothoracic ratio on the frontal radiograph measures 56.3%. Pulmonary vasculature is cephalized. Interstitial markings are slightly prominent but improved when compared with the interstitial edema pattern seen on July 05, 2020. Lateral radiograph shows blunting of the posterior pleural angles and some fissural thickening. No focal infiltrate is seen. IMPRESSION: CHF pattern with small bilateral effusions and cardiomegaly. Vascular con gestion. No abril pulmonary edema. PROGNOSIS: Fair ACTIVITY: [As tolerated]. DIET: Renal Diet, consistent carbohydrate, 2 G sodium DISCHARGE PLAN: Patient is to be discharged home after dialysis today. He is to follow-up with his PCP in 7-10 days. He is to contact his PCP sooner if he develops shortness of breath. He is to continue with dialysis as scheduled outpatient on Saturday, , and Saturday - Advised to return to the ER if he experiences any problems DISCHARGE CONDITION: [Stable]. TIME SPENT ON DISCHARGE: 35 minutes. Vital Signs/I&Os Vital Signs Date Time Temp Pulse Resp B/P (MAP) Pulse Ox O2 Delivery O2 Flow Rate FiO2 07/16/20 08:30 162/58 07/16/20 08:00 2.0 07/16/20 08:00 97.9 57 7 93 Nasal Cannula 07/15/20 13:35 95 I&O- Last 24 Hours up to 6 AM 07/16/20 06:00 Intake Total 940 ml Output Total 1500 ml Balance -560 ml Laboratory Data Labs 24H Laboratory Tests 2 07/15/20 17:05: Nucleated Red Blood Cells % (auto) 0.0 07/15/20 17:08: Bedside Glucose (Misc Panel) 343H 07/15/20 20:12: Bedside Glucose (Misc Panel) 353H 07/15/20 21:04: Nucleated Red Blood Cells % (auto) 0.0 07/16/20 05:37: Nucleated Red Blood Cells % (auto) 0.0, Anion Gap 7L, Glomerular Filtration Rate 8.1L, Calcium Level 8.4L, Magnesium Level 2.2 07/16/20 08:36: Nucleated Red Blood Cells % (auto) 0.0 07/16/20 11:46: Bedside Glucose (Misc Panel) 340H CBC/BMP Laboratory Tests 07/15/20 17:05 07/15/20 21:04 07/16/20 05:37 07/16/20 08:36 FSBS Laboratory Tests Test 07/15/20 17:08 07/15/20 20:12 07/16/20 11:46 Range/Units Bedside Glucose (Misc Panel) 343 353 340 80-115 MG/DL Microbiology Microbiology 07/14/20 Respiratory Virus Panel (PCR) ([facility]) - Final, Complete Discharge Medications Scheduled Aspirin (Aspirin EC) 81 Mg Tab, 81 MG PO DAILY, (Reported) Atorvastatin Calcium (Atorvastatin Calcium) 80 Mg Tab, 80 MG PO QPM, (Reported) 1600 Calcitriol (Calcitriol) 0.25 Mcg Capsule, 0.25 MCG PO 3XW, (Reported) SATURDAY, SATURDAY, AND SATURDAY AT DIALYSIS Calcium Carbonate (Calcium) 600 Mg Tab, 600 MG PO QPM, (Reported) 1600 Citalopram Hydrobromide (Citalopram HBr) 40 Mg Tab, 40 MG PO DAILY, (Reported) Clonidine HCl (Clonidine HCl) 0.1 Mg Tablet, 0.1 MG PO BID, (Reported) Clopidogrel Bisulfate (Clopidogrel) 75 Mg Tab, 75 MG PO DAILY, (Reported) Ergocalciferol (Vitamin D2) (Vitamin D2) 50,000 Units Cap, 50,000 UNITS PO 1XWK, (Reported) SATURDAY Ferrous Sulfate (Ferrous Sulfate) 325 Mg Tablet.dr, 325 MG PO DAILY, (Reported) Insulin Human Lispro (Humalog) 100 Unit/1 Ml Vial, 1 DOSE SC ASDIRECTED, (Reported) VIA INSULIN PUMP: 0000 - 0400 : 0.6 UNITS/HR 0400 - 2100 : 0.3 UNITS/HR 2100 - 0000 : 0.6 UNITS/HR CARB RATIO 12 CARBS PER UNIT Labetalol HCl (Labetalol HCl) 200 Mg Tablet, 200 MG PO BID, (Reported) Losartan Potassium (Losartan Potassium) 50 Mg Tablet, 50 MG PO QHS, (Reported) Mirtazapine (Remeron) 15 Mg Tablet, 45 MG PO QHS, (Reported) Pantoprazole Sodium (Pantoprazole Sodium) 40 Mg Tab, 40 MG PO BID, (Reported) Spironolactone (Spironolactone) 25 Mg Tab, 25 MG PO BID, (Reported) Scheduled PRN Albuterol Sulf (Albuterol Sulfate) 2.5 Mg/3 Ml Vial.neb, 2.5 MG INH Q4H PRN for SHORTNESS OF BREATH, (Reported) Hydrocodone/Acetaminophen (Hydrocodone-Acetamin 5-325 mg) 1 Each Tablet, 1 TAB PO Q6H PRN for PAIN, (Reported) Ipratropium/Albuterol Sulfate (Combivent Respimat 20-100 Mcg) 4 Gm Mist.inhal, 2 PUFF INH Q4H PRN for SOB/WHEEZING, (Reported) Allergies Coded Allergies: Quinolones (Verified Allergy, Mild, RASH, 02/16/19) CHARLES Inhibitors (Verified Adverse Reaction, Intermediate, ARF, 02/16/19) NSAIDS (Non-Steroidal Anti-Inflamma (Verified Adverse Reaction, Intermediate, KIDNEY DAMAGE, 02/16/19) celecoxib (Verified Adverse Reaction, Intermediate, KIDNEY DAMAGE, 02/16/19) gabapentin (Verified Adverse Reaction, Intermediate, personality changes, 02/17/19) ibuprofen (Verified Adverse Reaction, Intermediate, KIDNEY DAMAGE, 02/16/19) lisinopril (Verified Adverse Reaction, Intermediate, RENAL FAILURE, 02/16/19) sulfamethoxazole (Verified Adverse Reaction, Intermediate, RENAL FAILURE, 02/16/19) trimethoprim (Verified Adverse Reaction, Intermediate, RENAL FAILURE, 02/16/19) cefazolin (Verified Adverse Reaction, Mild, DIZZINESS, 02/16/19) cyclobenzaprine (Verified Adverse Reaction, Mild, DIZZINESS, 02/16/19) hydrochlorothiazide (Verified Adverse Reaction, Mild, DIZZINESS, 02/16/19) triamterene (Verified Adverse Reaction, Mild, DIZZINESS, 02/16/19) GME ATTESTATION GME ATTESTATION My faculty preceptor for this patient encounter was physically present during the encounter and was fully available. All aspects of the patient interview, examination, medical decision making process, and medical care plan development were reviewed and approved by the faculty preceptor. The faculty preceptor is aware and concurs with the plan as stated in the body of this note and will attest to such by his/her cosignature. ATTENDING NOTE I, Timo May, have independently examined this patient and performed my own physical exam, as well as reviewed the documentation and edited where necessary. I have discussed in detail with the resident / student the findings and plan of treatment as documented by the resident / student and edited their note. I agree with their findings and treatment plan and have edited their documentation. I will continue to follow the patient during this hospital stay. Time spent on discharge 35 minutes JULEE CARUSO DO Jul 16, 2020 13:29 TIMO MAY MD Jul 16, 2020 14:17
[2020-07-16 14:52] LABS: HEMATOCRIT 30.8 % (42.0-52.0); HEMOGLOBIN 10.3 g/dl (13.5-17.5); MEAN CORPUSCULAR HEMOGLOBIN 32.8 pg (27.0-33.0); MEAN CORPUSCULAR HGB CONC 33.4 g/dl (32.0-36.5); MEAN CORPUSCULAR VOLUME 98.1 fl (80.0-96.0); PLATELET COUNT, AUTOMATED 203 10^3/uL (150-450); RED BLOOD COUNT 3.14 10^6/uL (4.30-6.10); WHITE BLOOD COUNT 5.4 10^3/uL (4.0-10.0)
[2020-07-16] MEDS: ATORVASTATIN 20 MG TAB PO SCH (17:17)
--- NOTE | 2020-07-18 07:21 | CR ---
CONSULTATION FOR: Pavan Prabhakar M.D. REASON FOR CONSULTATION: Shortness of breath in this gentleman with end-stage renal disease. HISTORY OF PRESENT ILLNESS: Mr. Norwood is a 70-year-old gentleman with known history of insulin-dependent diabetes, hypertension, coronary artery disease, congestive heart failure, peripheral vascular disease, and end-stage renal disease. Patient also has recurrent anemia with chronic gastrointestinal (GI) bleed. He has required transfusions frequently. Patient has not been feeling well for the last few days. He was dialyzed on the day of admission and did not feel well even after dialysis, due to which he was sent to the emergency room. He was found to be anemic, and also chest x-ray showed congestive heart failure. Patient was admitted last evening, and I have seen him this morning, as consult was requested. MEDICAL HISTORY: 1. Type 1 diabetes, on insulin pump. 2. End-stage renal disease. 3. Hypertension. 4. Chronic obstructive pulmonary disease (COPD). 5. Peripheral vascular disease. 6. History of spinal stenosis. 7. Coronary artery disease. 8. Diastolic congestive heart failure. 9. History of dyslipidemia. 10. History of anemia with recurrent GI bleed and end-stage renal disease. 11. History of peripheral neuropathy. 12. History of hyperlipidemia. SURGICAL HISTORY: Significant for: 1. Bilateral submandibular gland excision. 2. Femoral artery angioplasty with stents. 3. Colonoscopies and upper endoscopies. 4. Right femoral-popliteal bypass with right 2nd toe amputation. 5. Bilateral lower extremity angioplasties. 6. Right iliofemoral bypass graft. 7. Bilateral cataracts. 8. Femoral-popliteal bypass graft on the left lower extremity. 9. Arteriovenous (AV) fistula creation. PERSONAL AND SOCIAL HISTORY: Patient lives at home with his . He is a former smoker and denies any alcohol or drug use. FAMILY HISTORY: Significant for coronary artery disease in the mother, and his father from pneumonia. HOME MEDICATIONS: - aspirin 81 mg daily - atorvastatin 80 mg daily - calcitriol 0.25 mcg three times a week - calcium carbonate 600 mg with meals - citalopram 40 mg daily - clonidine 0.1 mg twice a day - Plavix 75 mg daily - vitamin D 50,000 units once a week - ferrous sulfate 325 mg daily - labetalol 200 mg twice a day - Humulin insulin per insulin pump - losartan 50 mg daily - mirtazapine 15 mg at bedtime - pantoprazole 40 mg twice a day - spironolactone 25 mg twice a day - He also uses hydrocodone as needed for pain - albuterol inhaler as needed for dyspnea ALLERGIES: Patient has multiple allergies, which are documented in his electronic records. REVIEW OF SYSTEMS: Patient reports shortness of breath on any exertion. He was short of breath even after dialysis yesterday. He denies any fever or chills. Ears, nose, and throat are unremarkable. Cardiovascular system is significant for dyspnea, but denies any chest pain or leg edema. Respiratory system is significant for COPD. Patient denies any hemoptysis or pleuritic-type of chest pain. GI system is significant for recurrent GI bleed and has required multiple upper and lower endoscopies. Genitourinary () system is negative for dysuria or hematuria. Musculoskeletal system significant for spinal stenosis, chronic back pain, and arthritis. Psychosocial system is significant for depression. Neurological system is significant for peripheral neuropathy. Denies any history of stroke. He does have history of altered mentation previously. Hematological system is significant for recurrent anemia requiring transfusions. Skin is negative for rash or ulcers. PHYSICAL EXAMINATION: Temperature 97 degrees Fahrenheit, heart rate 50 per minute, respiratory rate 18 per minute, blood pressure 137/64 mm of mercury, and oxygen saturation is 93% on 2 liters oxygen. Head is atraumatic. Bilateral submandibular surgical scars from old surgery are present. Jugular venous distention (JVD) is about 9 cm above sternal angle. There is no oral thrush or ulcers. Heart sounds are regular and without a pericardial friction rub. Lungs have bilateral rales. Abdomen soft and nontender, and bowel sounds are normal. Extremities have no cyanosis or clubbing. There is no lower extremity edema. Today's labs show WBC count 5.5, hemoglobin 8.1, hematocrit 24.7, platelets 183. Sodium 137, potassium 4.1, BUN 28, creatinine 5.47, glucose 188, calcium 8.6. His BNP was 68,721 last evening. Troponin is less than 0.02. PROBLEMS: 1. Shortness of breath. Most likely this is related to volume overload and congestive heart failure. Patient has been on hemodialysis; however, he probably has lost body weight. We will arrange for ultrafiltration today and remove about 1.5 liters of fluid. His regular dialysis will be scheduled for tomorrow, and further fluid removal will be performed with that. He usually does not tolerate too aggressive fluid removal. 2. End-stage renal disease. Patient gets regular dialysis on Saturday, , and Saturday schedule. He was dialyzed yesterday, and we will plan next dialysis tomorrow. His electrolytes are stable. 3. Anemia. Patient has history of recurrent anemia with GI bleed. His hemoglobin is 8.1 today, and we will give him 1 unit of packed red blood cells (RBC) during dialysis and recheck his complete blood count (CBC) tomorrow. 4. Hypertension. Blood pressure has been reasonably well controlled on current antihypertensive medications and should continue with all his chronic medications. Thank you for involving me in the care of Mr. Norwood. I will follow him along with you. JAXSON
[2020-07-18 10:07] LABS: HEPATITIS B SURFACE ANTIGEN NEGATIVE (NEGATIVE)
--- NOTE | 2020-07-18 11:27 | IPN ---
DATE: 07/16/2020 SUBJECTIVE: The patient was seen and examined at the bedside today morning. He is afebrile, hemodynamically stable. He denies any more shortness of breath. He was dialyzed yesterday; 1.5 liters of fluid was removed. Today is the patient's regular day of dialysis. OBJECTIVE: VITAL SIGNS: Temperature is 98 degrees Fahrenheit, blood pressure is 168/62, pulse is 57, respiratory rate of 17, saturating 98% on nasal cannula at 2 liters. PHYSICAL EXAMINATION: HEAD AND NECK: Extraocular muscles intact. Pupils are equally round and reactive to light. Mucous membranes are moist. Neck is supple. He has mildly elevated jugular venous distention. CARDIOVASCULAR: S1, S2, regular rate. EXTREMITIES: 1+ edema of the bilateral lower extremities. RESPIRATORY: Mildly decreased breath sounds at the bases with mild expiratory rhonchi. ABDOMEN: Soft, positive bowel sounds, nontender. MUSCULOSKELETAL: No clubbing, no cyanosis. Pulses are 2+. C&S: No focal deficits. Power is 5/5 in all extremities. LAB REVIEW: CBC showed a WBC of 5.4, hemoglobin 10.3, platelets are 203. BMP showed sodium 138, potassium 3.9, chloride 100, bicarbonate 31, BUN 40, creatinine is 7.2. CURRENT INPATIENT MEDICATIONS: The patient's medications were all reviewed by myself. There is no significant change in the medications today as compared with yesterday. ASSESSMENT AND PLAN: 1. End-stage renal disease - The patient is will be dialyzed in the afternoon today according to his regular schedule. 2. [id number]-ks-qqzrysw decompensated diastolic congestive heart failure - The patient got the blood transfusion during the hospitalization. He is likely volume overloaded. We should try to remove at least 3 kg to 4 kg of fluid as tolerated by his blood pressure. 3. Acute blood loss anemia his hemoglobin level is stable. The patient is status post one unit of PRBC transfusion. 4. Hypertension blood pressure is controlled with current dose of Clonidine 0.1 mg p.o. twice a day, Labetalol 200 mg p.o. twice a day, Losartan 50 mg q. h.s. and Spironolactone 25 mg p.o. twice a day. The rest of the blood pressure management will be done with volume management. 5. Disposition Hopefully after dialysis and fluid removal, the patient should be optimized to be discharged home. MTDD
== END 2020-07-16 18:42 | disposition home or self-care (01) | DRG 291 ==
LOC: M ED 13:51 → M ED INP 20:40 → ENRESERV 21:34 → M PCU 07-15 00:05
PROVIDERS: ADMIT Family Medicine; ATTEND Internal Medicine
PROC: 30233N1 Transfusion of Nonautologous Red Blood Cells into Peripheral Vein, Percutaneous Approach (ICD-10-PCS; 2020-07-15)
PROC: 5A1D70Z Performance of Urinary Filtration, Intermittent, Less than 6 Hours Per Day (ICD-10-PCS; principal; 2020-07-16)
DX: I13.2 Hypertensive heart and chronic kidney disease with heart failure and with stage 5 chronic kidney disease, or end stage renal disease (principal); N18.6 End stage renal disease; I50.32 Chronic diastolic (congestive) heart failure; J44.9 Chronic obstructive pulmonary disease, unspecified; E10.22 Type 1 diabetes mellitus with diabetic chronic kidney disease; E10.51 Type 1 diabetes mellitus with diabetic peripheral angiopathy without gangrene; I25.10 Atherosclerotic heart disease of native coronary artery without angina pectoris; F34.1 Dysthymic disorder; E10.42 Type 1 diabetes mellitus with diabetic polyneuropathy; E78.00 Pure hypercholesterolemia, unspecified; Z66 Do not resuscitate; D63.1 Anemia in chronic kidney disease; Z95.820 Peripheral vascular angioplasty status with implants and grafts; Z98.41 Cataract extraction status, right eye; Z98.42 Cataract extraction status, left eye; Z79.84 Long term (current) use of oral hypoglycemic drugs; Z79.02 Long term (current) use of antithrombotics/antiplatelets; Z79.899 Other long term (current) drug therapy; Z88.1 Allergy status to other antibiotic agents; Z88.2 Allergy status to sulfonamides; Z88.6 Allergy status to analgesic agent; Z88.8 Allergy status to other drugs, medicaments and biological substances; Z99.2 Dependence on renal dialysis; Z20.828 Contact with and (suspected) exposure to other viral communicable diseases

== ENCOUNTER → 2020-08-26 | Outpatient (CLI) | payer MEDICARE ==
[~2020-08-26] MED LIST changes: +ALBU83IN INH; +DOXY100T PO; +KEFL250C11 PO; +LOSA50TA88 PO; +MIRT-62 PO; -REME15TA PO
--- NOTE | 2020-08-26 13:07 | REP ---
INDICATION: OCCLUSION AND STENOSIS OF BILATERAL CAROTID ARTERIES. COMPARISON: 07/25/2018. TECHNIQUE: Bilateral carotid artery duplex ultrasound. FINDINGS: Peak flow velocities: Right left Internal carotid artery 82.8 cm/sec 141 cm/sec Int. Carotid diastolic 14.2 cm/sec 14.0 cm/sec External carotid artery 362 cm/sec 158 cm/sec Common carotid artery 66.4 cm/sec 151 cm/sec ICA-CCA ratio 1.2 0.9 There is moderate atheromatous plaque in the right distal common carotid artery. There is minimal atheromatous plaque in the right internal carotid artery and external carotid artery. Cysts there is moderate atheromatous plaque in the left common carotid artery and moderate atheromatous plaque in the left internal carotid artery and external carotid artery origins. There is antegrade flow in the right vertebral artery. The left vertebral artery could not be visualized. IMPRESSION: Right carotid system: The peak flow velocities indicate less than 50% narrowing, no significant stenosis in the right common carotid artery and right internal carotid artery. However, there is significantly elevated peak flow velocity in the right external carotid artery indicating greater than 70% narrowing, significant stenosis but less than near occlusion. Left carotid system: The peak flow velocities indicate 50-69% narrowing in the common carotid artery, internal carotid artery and external carotid. There is antegrade flow in the right vertebral artery. The left vertebral artery could not be visualized. Depending on clinical concerns follow-up MRA or CTA might be considered. <Electronically signed by Juan Antonio Bobo > 08/26/20 [id number]
--- NOTE | 2020-08-26 13:39 | REP ---
INDICATION: OCCLUSION AND STENOSIS OF BILATERAL CAROTID ARTERIES. Bilateral common femoral to popliteal bypass grafts. COMPARISON: Comparison study May 13, 2020.. TECHNIQUE: Bilateral lower extremity arterial Doppler ultrasound. FINDINGS: Ankle brachial indices could not be achieved due to noncompressible vessels. [place] superficial femoral arteries are again noted to be occluded. Patent bilateral fem-pop bypass grafts are seen. Heavily calcified vessels are noted in the calf arteries bilaterally. Reversed flow is noted in the right profundal a. evidence of the left profundal femoral artery stenosis is seen at its origin 1.8-1 velocity ratio. A mild stenosis is suspected in the left common femoral. Biphasic waveforms are noted in the arterial tree bilaterally. 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 PSV 80 cm/S Profundal reversed 25 Proximal breath bypass graft 78 Mid bypass graft 93 Distal bypass graft 81 Popliteal 108 Proximal LEYLA 111 Tibial-peroneal trunk 71 Proximal [employer] DEVELOPER 24 Distal SIE[employer]EL [employer] DEVELOPER 26 Distal LEYLA 124 Left lower extremity arterial Doppler velocity chart: Left fem-pop bypass graft proximal anastomosis PSV 97 cm/S Left fem-pop bypass graft distal anastomosis PSV 322 cm/S 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 Atherosclerotic changes as above. <Electronically signed by Kris Willingham > 08/26/20 [id number]
== END ==
LOC: M RAD 09:01
PROVIDERS: ATTEND Physician Assistant
DX: I65.23 Occlusion and stenosis of bilateral carotid arteries (principal); I70.213 Atherosclerosis of native arteries of extremities with intermittent claudication, bilateral legs

== ENCOUNTER 2020-09-03 02:48 | Inpatient (IN) | payer MEDICARE ==
[~2020-09-03] VITALS: Ht 165.1 cm; Wt 71.1 kg
[~2020-09-03 02:48] MED LIST changes: -DOXY100T PO; -KEFL250C11 PO
[2020-09-03] MEDS: COMBIVENT RESPIMAT 100-20MCG INHALER 4GM INH SCH ×3 (03:37→04:28)
[2020-09-03 03:47] LABS: VENOUS BASE EXCESS 2.6 (-2.0-2.0); VENOUS HCO3 30.2 MEQ/L (23.0-27.0); VENOUS O2 SATURATION 57.8 % (60.0-80.0); VENOUS PARTIAL PRESSURE CO2 63.6 mmHg (38.0-50.0); VENOUS PARTIAL PRESSURE O2 35.1 mmHg (30.0-50.0); VENOUS PH 7.295 UNITS (7.330-7.430); VENOUS STANDARD HCO3 26.1 MEQ/L; VENOUS TOTAL CO2 32.2 MEQ/L (24.0-28.0)
[2020-09-03 03:49] LABS: BASO # 0.1 10^3/uL (0.0-0.2); BASO % 0.8 % (0.0-1.0); EOS # 0.2 10^3/uL (0.0-0.5); EOS % 2.2 % (0.0-3.0); HEMATOCRIT 29.1 % (42.0-52.0); HEMOGLOBIN 9.3 g/dl (13.5-17.5); LYMPH % 14.4 % (24.0-44.0); MEAN CORPUSCULAR HEMOGLOBIN 34.2 pg (27.0-33.0); MONO # 0.6 10^3/uL (0.0-0.8); MONO % 8.6 % (0.0-5.0); NEUTROPHILS # 5.2 10^3/uL (1.5-8.5); NEUTROPHILS % 73.2 % (36.0-66.0); PLATELET COUNT, AUTOMATED 235 10^3/uL (150-450); RED BLOOD COUNT 2.72 10^6/uL (4.30-6.10); WHITE BLOOD COUNT 7.1 10^3/uL (4.0-10.0)
[2020-09-03 04:03] LABS: PROTHROMBIN TIME 13.4 SECONDS (12.5-14.3)
[2020-09-03 04:21] LABS: D-DIMER QUANT > 4000 ng/ml (<500)
[2020-09-03 04:26] LABS: RSV AMPLIFICATION NEGATIVE (NEGATIVE)
--- NOTE | 2020-09-03 04:50 | REPVR ---
PROCEDURE INFORMATION: Exam: XR Chest, 1 View Exam date and time: 09/03/2020 4:39 AM Age: 70 years old Clinical indication: Other: Dyspnea/cough TECHNIQUE: Imaging protocol: XR of the chest Views: 1 view. COMPARISON: CR PORTABLE CHEST X-RAY 07/05/2020 4:25 AM FINDINGS: Lungs: There are poorly defined, patchy opacities in the bilateral lung bases, right worse than left, which are new or significantly worse than on the prior exam. The more diffuse ground-glass opacity and central vascular enlargement on the prior exam have resolved. Pleural space: There is again thickening of the right minor fissure, unchanged. No pleural effusions or pneumothorax identified. Heart/Mediastinum: The heart appears smaller than on the prior exam, now within normal size limits. Vasculature: Aortic knob calcifications are noted. Bones/joints: Unremarkable. IMPRESSION: 1. Patchy bibasilar lung opacities, right more than left, probably representing multifocal pneumonia. 2. Decreased heart size and resolution of pulmonary edema seen previously. Electronically signed by: Rema Ortiz On 09/03/2020 04:50:40 AM
[2020-09-03 05:06] LABS: ALBUMIN 3.2 GM/DL (3.2-5.2); ALT/SGPT 21 U/L (12-78); BILIRUBIN,DIRECT < 0.1 MG/DL (0.0-0.2); BILIRUBIN,TOTAL 0.4 MG/DL (0.2-1.0); BLOOD UREA NITROGEN 55 MG/DL (7-18); C REACTIVE PROTEIN QUANTITATIV 1.19 MG/DL (0.00-0.30); CALCIUM LEVEL 8.2 MG/DL (8.8-10.2); CARBON DIOXIDE LEVEL 29 MEQ/L (21-32); CHLORIDE LEVEL 102 MEQ/L (98-107); CK-MB VALUE MASS 2.7 NG/ML (<3.6); CPK CREATINE PHOSPHOKINASE 83 U/L (39-308); CREATININE FOR GFR 8.94 MG/DL (0.70-1.30); FERRITIN 1070 NG/ML (26-388); GLOMERULAR FILTRATION RATE 6.3 (>49); GLUCOSE, FASTING 162 MG/DL (70-100); LDH LACTATE DEHYDROGENASE 210 U/L (87-241); MB/CK RELATIVE INDEX 3.25 (< OR =4); POTASSIUM SERUM 4.1 MEQ/L (3.5-5.1); SODIUM LEVEL 141 MEQ/L (136-145); TOTAL PROTEIN 6.8 GM/DL (6.4-8.2); TROPONIN I < 0.02 NG/ML (< 0.10)
[2020-09-03] MEDS ORDERED: cefTRIAXone SOD 2 GM in D5W MINI-BAG PLUS 50 ML IV ONE (05:15)
--- NOTE | 2020-09-03 05:56 | REPVR ---
PROCEDURE INFORMATION: Exam: CT Chest Without Contrast; Diagnostic Exam date and time: 09/03/2020 5:10 AM Age: 70 years old Clinical indication: Shortness of breath; Additional info: Infiltrate, suspected fluid overload TECHNIQUE: Imaging protocol: Diagnostic computed tomography of the chest without contrast. 3D rendering (Not supervised by radiologist): MIP and/or 3D reconstructed images were created by the technologist. Radiation optimization: All CT scans at this facility use at least one of these dose optimization techniques: automated exposure control; mA and/or kV adjustment per patient size (includes targeted exams where dose is matched to clinical indication); or iterative reconstruction. COMPARISON: CT Chest without contrast 10/30/2017 7:47 AM FINDINGS: Lungs: There is again a calcified granuloma in the right lower lobe. There is consolidation in the posterior aspects of the bilateral lower lobes. There is ground-glass opacity and septal thickening elsewhere in the right lower lobe and in the right middle lobe. There is mild septal thickening and a small amount of ground-glass opacity in the lingula and left lower lobe. There is minimal consolidation in the dependent regions of the left upper lobe. There is no significant septal thickening or ground-glass opacity in the upper lung zones. There was consolidation in the bilateral lower lobes previously, but the appearance and distribution differs from the prior exam. Pleural space: There are small, bilateral pleural effusions. Heart: There is severe atherosclerotic calcification of the coronary arteries. The heart appears slightly larger than previously, with the left atrium particularly larger. Aorta: The aorta demonstrates moderate atherosclerotic calcification. No aortic aneurysm. Lymph nodes: There is no gross lymphadenopathy. There are calcified right hilar and paratracheal lymph nodes. Kidneys and ureters: There is diffuse thinning of the partially visualized renal parenchyma, indicating chronic atrophy. Bones/joints: Degenerative endplate changes are seen at multiple levels in the visualized spine. Prominent subchondral sclerosis associated with endplate degenerative changes and disc space narrowing are again seen at the T2-T3 level which appears similar to the prior exam. There is increased sclerosis and erosive/cystic changes of the endplates at the L1-L2 level. Schmorl's nodes are seen in multiple endplates, otherwise unchanged. Soft tissues: There is nonspecific gynecomastia. IMPRESSION: 1. Mild cardiomegaly, small pleural effusions, and consolidation, ground-glass opacity, and septal thickening in the bilateral lung bases. The findings may be due to pulmonary edema, but the amount of consolidation in the lung bases with the near complete lack of septal thickening or ground-glass opacity in the upper lung zones suggests there may be an infectious or inflammatory process in addition to fluid overload. 2. Degenerative changes at multiple levels in the visualized spine. Significant worsening of endplate sclerosis and erosive endplate changes at the L1-L2 level compared to the prior exam of 2018. If there are any symptoms in this region, follow-up with MRI of the lumbar spine can be performed. Electronically signed by: Rema Ortiz On 09/03/2020 05:56:41 AM
[2020-09-03] MEDS ORDERED: ENOXAPARIN 40MG/0.4ML SYRINGE (J1650 PER 10MG) SC SCH (09:00)
[2020-09-03] MEDS ORDERED: ACETAMINOPHEN TAB 650MG DOSE (2X325MG) PO PRN (09:00)
[2020-09-03] MEDS ORDERED: LIDOCAINE 1% MDV 20ML VIAL As Ordered ONE (09:02)
[2020-09-03] MEDS ORDERED: KEFL250C11 PO (09:10)
[2020-09-03] MEDS ORDERED: ALBUTEROL SULFATE 2.5 MG/0.5 ML INH NEB SOLN INH PRN (09:15)
[2020-09-03] MEDS ORDERED: NORCO, ANEXSIA 5/325MG TABLET (HYDROcodone/ACETAMINOPHEN) PO PRN (09:15)
[2020-09-03] MEDS ORDERED: COMBIVENT RESPIMAT 100-20MCG INHALER 4GM INH PRN (09:15)
--- NOTE | 2020-09-03 09:27 | HPEPDOC ---
General Date of Admission Sep 03, 2020 at 08:47 Date of Service: Sep 03, 2020 Chief Complaint The patient is a 70-year-old male admitted with a reason for visit of Congestive Heart Failure/Esrd. Source: Patient Exam Limitations: No limitations Timing/Duration: Day(s) Severity: Moderate Associated Symptoms: Shortness of breath History of Present Illness Patient is 70 years old male with past medical history of end-stage renal diseases, type 1 diabetes on dialysis Saturday, Saturday presented hospital with shortness of breath. Patient stated that he missed dialysis Saturday and after that he developed shortness of breath. Patient denied any fever. He stated he has been having dry cough with small amount of clear sputum. In ER patient was found to have hemoglobin of 9.3, creatinine 8.9. CT chest showed Mild cardiomegaly, small pleural effusions, and consolidation, ground-glass opacity, and septal thickening in the bilateral lung bases. The findings may be due to pulmonary edema, but the amount of consolidation in the lung bases with the near complete lack of septal thickening or ground-glass opacity in the upper lung zones suggests there may be an infectious or inflammatory process in addition to fluid overload. I talked to Dr. Cottrell, patient will get dialysis today. Patient received 1 dose of ceftriaxone in the emergency. Home Medications Scheduled Aspirin (Aspirin EC) 81 Mg Tab, 81 MG PO DAILY, (Reported) Atorvastatin Calcium (Atorvastatin Calcium) 80 Mg Tab, 80 MG PO QPM, (Reported) 1600 Calcitriol (Calcitriol) 0.25 Mcg Capsule, 0.25 MCG PO 3XW, (Reported) SATURDAY, SATURDAY, AND SATURDAY AT DIALYSIS Calcium Carbonate (Calcium) 600 Mg Tab, 600 MG PO QPM, (Reported) 1600 Cephalexin (Keflex) 250 Mg Capsule, 250 MG PO TID, (Reported) Citalopram Hydrobromide (Citalopram HBr) 40 Mg Tab, 40 MG PO DAILY, (Reported) Clonidine HCl (Clonidine HCl) 0.1 Mg Tablet, 0.1 MG PO BID, (Reported) Clopidogrel Bisulfate (Clopidogrel) 75 Mg Tab, 75 MG PO DAILY, (Reported) Ergocalciferol (Vitamin D2) (Vitamin D2) 50,000 Units Cap, 50,000 UNITS PO 1XWK, (Reported) SATURDAY Ferrous Sulfate (Ferrous Sulfate) 325 Mg Tablet.dr, 325 MG PO DAILY, (Reported) Insulin Human Lispro (Humalog) 100 Unit/1 Ml Vial, 1 DOSE SC ASDIRECTED, (Reported) VIA INSULIN PUMP: 0000 - 0400 : 0.6 UNITS/HR 0400 - 2100 : 0.3 UNITS/HR 2100 - 0000 : 0.6 UNITS/HR CARB RATIO 12 CARBS PER UNIT Labetalol HCl (Labetalol HCl) 200 Mg Tablet, 200 MG PO BID, (Reported) Losartan Potassium (Losartan Potassium) 50 Mg Tablet, 50 MG PO QHS, (Reported) Mirtazapine (Remeron) 15 Mg Tablet, 45 MG PO QHS, (Reported) Pantoprazole Sodium (Pantoprazole Sodium) 40 Mg Tab, 40 MG PO BID, (Reported) Spironolactone (Spironolactone) 25 Mg Tab, 25 MG PO BID, (Reported) Scheduled PRN Albuterol Sulf (Albuterol Sulfate) 2.5 Mg/3 Ml Vial.neb, 2.5 MG INH Q4H PRN for SHORTNESS OF BREATH, (Reported) Hydrocodone/Acetaminophen (Hydrocodone-Acetamin 5-325 mg) 1 Each Tablet, 1 TAB PO Q6H PRN for PAIN, (Reported) Ipratropium/Albuterol Sulfate (Combivent Respimat 20-100 Mcg) 4 Gm Mist.inhal, 2 PUFF INH Q4H PRN for SOB/WHEEZING, (Reported) Allergies Coded Allergies: Quinolones (Verified Allergy, Mild, RASH, 02/16/19) CHARLES Inhibitors (Verified Adverse Reaction, Intermediate, ARF, 02/16/19) NSAIDS (Non-Steroidal Anti-Inflamma (Verified Adverse Reaction, Intermediate, KIDNEY DAMAGE, 02/16/19) celecoxib (Verified Adverse Reaction, Intermediate, KIDNEY DAMAGE, 02/16/19) gabapentin (Verified Adverse Reaction, Intermediate, personality changes, 02/17/19) ibuprofen (Verified Adverse Reaction, Intermediate, KIDNEY DAMAGE, 02/16/19) lisinopril (Verified Adverse Reaction, Intermediate, RENAL FAILURE, 02/16/19) sulfamethoxazole (Verified Adverse Reaction, Intermediate, RENAL FAILURE, 02/16/19) trimethoprim (Verified Adverse Reaction, Intermediate, RENAL FAILURE, 02/16/19) cefazolin (Verified Adverse Reaction, Mild, DIZZINESS, 02/16/19) cyclobenzaprine (Verified Adverse Reaction, Mild, DIZZINESS, 02/16/19) hydrochlorothiazide (Verified Adverse Reaction, Mild, DIZZINESS, 02/16/19) triamterene (Verified Adverse Reaction, Mild, DIZZINESS, 02/16/19) Past Medical History Medical History 1. COPD. 2. Hypertension. 3. Type 1 diabetes mellitus. 4. Peripheral vascular disease 5. Spinal stenosis 6. Coronary artery disease 7. End-stage renal disease 8. Dysthymia 9. Anemia of renal disease 10. Sensory neuropathy 11. Hypercholesterolemia Surgical History 1. Bilateral submandibular gland excision. 2. PCI femoral arteries. 3. Colonoscopy in 2007. 4. Right femoral popliteal bypass with right second toe amputation 5. Bilateral lower extremity angioplasties 6. Right iliofemoral bypass graft 7. Bilateral cataracts 8. Femoral-popliteal bypass on the left lower extremity 9. AV fistula placement 10. Multiple EGDs and colonoscopies Family History Coronary artery disease and mother, father of pneumonia Social History * Smoker: Denies Alcohol: Denies Drugs: denies A-FIB/CHADSVASC A-FIB History Current/History of A-Fib/PAF?: No Current PO Anticoag Therapy: No Review of Systems Constitutional: Denies: Chills, Fever Eyes: Denies: Pain ENT: Denies: Head Aches Skin: Denies: Rash Pulmonary: Reports: Dyspnea, Cough Cardiovascular: Denies: Chest Pain Gastrointestinal: Denies: Nausea, Vomiting Genitourinary: Reports: Dysuria, Frequency; Denies: Hematuria Hematologic: Denies: Bruising Endocrine: Denies: Polydipsia, Polyphagia Musculoskeletal: Denies: Neck Pain Neurological: Denies: Weakness Psych: Reports: Mood Normal Physical Examination General Exam: Positive: Alert, Cooperative Eye Exam: Positive: PERRLA ENT Exam: Positive: Atraumatic Neck Exam: Positive: Supple, JVD Chest Exam: Positive: Diminished Heart Exam: Positive: Rate Normal Telemetry: Positive: No significant arrhythmia Abdomen Exam: Positive: Normal bowel sounds Extremity Exam: Negative: Clubbing, Cyanosis Skin Exam: Positive: Nl turgor and temperature, Other skin issue (small subcutaneous abscess in the right middle abdominal quadrant around 4-5 cm) Neuro Exam: Positive: Strength at 5/5 X4 ext, Cranial Nerves 3-12 NL Psych Exam: Positive: Mental status NL Vital Signs Vital Signs Date Time Temp Pulse Resp B/P (MAP) Pulse Ox O2 Delivery O2 Flow Rate FiO2 09/03/20 07:18 59 95 09/03/20 06:46 97.8 18 210/99 (136) Room Air 09/03/20 04:18 4.0 Laboratory Data Labs 24H Laboratory Tests 2 09/03/20 03:34: Immature Granulocyte % (Auto) 0.8, Neutrophils (%) (Auto) 73.2H, Lymphocytes (%) (Auto) 14.4L, Monocytes (%) (Auto) 8.6H, Eosinophils (%) (Auto) 2.2, Basophils (%) (Auto) 0.8, Neutrophils # (Auto) 5.2, Lymphocytes # (Auto) 1.0L, Monocytes # (Auto) 0.6, Eosinophils # (Auto) 0.2, Basophils # (Auto) 0.1, Nucleated Red Blood Cells % (auto) 0.0, Prothrombin Time 13.4, Prothromb Time International Ratio 1.00, D-Dimer, Quantitative > 4000H, Blood Gas Bicarbonate Standard 26.1, Venous Blood pH 7.295L, Venous Blood Partial Pressure CO2 63.6H, Venous Blood Partial Pressure O2 35.1, Venous Blood Total Carbon Dioxide 32.2H, Venous Blood HCO3 30.2H, Venous Blood Oxygen Saturation 57.8L, Venous Blood Base Excess 2.6H, Anion Gap 10, Glomerular Filtration Rate 6.3L, Lactic Acid Level 1.4, Calcium Level 8.2L, Ferritin 1070H, Total Bilirubin 0.4, Direct Bilirubin < 0.1, Aspartate Amino Transf (AST/SGOT) 17, Alanine Aminotransferase (ALT/SGPT) 21, Alkaline Phosphatase 85, Lactate Dehydrogenase 210, Total Creatine Kinase 83, Creatine Kinase MB 2.7, Creatine Kinase MB Relative Index 3.25, Troponin I < 0.02, C-Reactive Protein, Quantitative 1.19H, Total Protein 6.8, Albumin 3.2, Albumin/Globulin Ratio 0.9, Thyroid Stimulating Hormone (TSH) 3.580, Coronavirus (COVID-19)(PCR) NEGATIVE, Influenza Type A (RT-PCR) NEGATIVE, Influenza Type B (RT-PCR) NEGATIVE, Respiratory Syncytial Virus (PCR) NEGATIVE CBC/BMP Laboratory Tests 09/03/20 03:34 Microbiology Microbiology 09/03/20 Blood Culture, Received Pending 09/03/20 Wound Culture, Received Pending 09/03/20 Blood Culture, Received Pending Assessment/Plan Patient is 70 years old male with past medical history of end-stage renal diseases, type 1 diabetes on dialysis Saturday, Saturday presented hospital with shortness of breath. Patient stated that he missed dialysis Saturday and after that he developed shortness of breath. Patient denied any fever. He stated he has been having dry cough with small amount of clear sputum. In ER patient was found to have hemoglobin of 9.3, creatinine 8.9. CT chest showed Mild cardiomegaly, small pleural effusions, and consolidation, ground-glass o pacity, and septal thickening in the bilateral lung bases. The findings may be due to pulmonary edema, but the amount of consolidation in the lung bases with the near complete lack of septal thickening or ground-glass opacity in the upper lung zones suggests there may be an infectious or inflammatory process in addition to fluid overload. I talked to Dr. Cottrell, patient will get dialysis today. Patient received 1 dose of ceftriaxone in the emergency. Problems (1) ESRD (end stage renal disease) on dialysis Status: Acute Problem Text: Nephrology team follows him Patient severely volume overloaded I will check a BNP Dialysis today (2) Diabetes mellitus Status: Chronic Problem Text: Patient can use his own insulin pump Diabetes diet (3) Dyspnea Status: Acute Problem Text: Patient does not have leukocytosis or fever. Patient has mild dry cough each can be attributed to CHF secondary to volume overload I'm not convinced that patient has pneumonia I will hold antibiotics for now We'll check pro calcitonin (4) Hypertensive emergency Status: Acute Problem Text: Secondary to volume overload Hydralazine IV when necessary Continue home cardioprotective medications (5) Skin abscess Status: Acute Problem Text: Patient stated that he has a skin abscess of right middle abdominal quadrant around 5-7 days. Patient was treated with cephalexin with no improvement Appreciate/agree with surgical consult for possible incision and drainage I will start doxycycline to cover MRSA (6) CHF exacerbation Status: Acute Problem Text: Due to volume overload Diastolic CHF exacerbation Echo from 2018 showed ejection fraction of 60-65% Await BNP Plan / VTE VTE Prophylaxis Ordered?: Yes ED BUI DO Sep 03, 2020 09:27
[2020-09-03] MEDS ORDERED: LIDOCAINE 1% MDV 20ML VIAL SC ONE (09:30)
[2020-09-03] MEDS ORDERED: DEXTROSE 50% 50 ML SYRINGE IV PRN (09:30)
[2020-09-03] MEDS ORDERED: GLUCOSE 4GM CHEW TABLET PO PRN (09:30)
[2020-09-03] MEDS ORDERED: hydrALAZINE 20MG/ML 1ML VIAL (J0360 PER 20MG) IV PRN (09:30)
[2020-09-03] MEDS ORDERED: GLUCAGON INJ 1MG VIAL SC PRN (09:30)
[2020-09-03 09:46] LABS: NT-PRO BNP 58316 PG/ML (<125)
[2020-09-03] MEDS ORDERED: DOXYCYCLINE HYCLATE 100MG TABLET PO ONE (10:00)
[2020-09-03 10:13] VITALS: BP 177/149
--- NOTE | 2020-09-03 10:19 | CR ---
CONSULTATION DATE: 09/03/2020 REASON FOR CONSULTATION: Abdominal abscess. HISTORY OF PRESENT ILLNESS: The patient is a 70-year-old male who presented to the ER with shortness of breath. He is currently being admitted by the Hospitalist for endstage renal disease, diabetes, CHF exacerbation, and during the exam he was found to have a small abscess in his right abdominal wall. Patient states he has had this for over a week. It is at a location where he normally injects his insulin in. He has never had any problems like this in the past. No fevers or chills from this. No drainage from it, but it is very red and warm to the touch. PAST MEDICAL HISTORY: COPD, hypertension, diabetes, peripheral vascular disease, spinal stenosis, coronary artery disease, endstage renal disease, dysrhythmias, hypercholesterolemia. PAST SURGICAL HISTORY: Bilateral submandibular gland excision, femoral artery surgery, right fem/pop bypass, bilateral lower extremity angioplasty, right iliofemoral bypass, bilateral cataract, fem/pop bypass on the left, AV fistula placement, multiple EGDs and colonoscopies. SOCIAL HISTORY: Denies drug, alcohol or tobacco abuse. FAMILY HISTORY: Noncontributory. ALLERGIES: Multiple, please see medication req. MEDICATIONS: Multiple, please see medication req. REVIEW OF SYSTEMS: Per above in the HPI. PHYSICAL EXAMINATION: GENERAL: Alert and oriented x3, in no acute distress. VITAL SIGNS: Temperature 97.8, pulse 57, respirations 18, blood pressure is 212/90, pulse oximetry 92% on room air. HEENT: Pupils equally round and reactive to accommodation. HEART: S1 and S2. Regular rate and rhythm. LUNGS: Clear to auscultation bilaterally. ABDOMEN: Soft, slight tenderness to palpation of the right lower quadrant just to the right of the umbilicus. There is a 3 x 4 cm erythematous area with a scab in the middle, also fluctuant in the middle consistent with a subcutaneous abscess. LABORATORY DATA: White count is 7.1, hemoglobin is 9.3, platelets were 235,000. Potassium 4.1, creatinine 8.94. Lactic acid 1.4, BNP 58,316. ASSESSMENT AND PLAN: The patient is a 70-year-old male with a right abdominal wall abscess. Recommendation is to proceed with a bedside incision and drainage. The risks and benefits of the procedure are not limited to but including bleeding, infection, damage to surrounding structures, need for further surgery were discussed in detail with the patient, informed consent was obtained and the procedure was completed at the bedside in the Emergency Room. Afterwards, he can continue with just regular dry gauzes dressing changes as needed until the infection subsides. No need for any further procedure at this point.
[2020-09-03] MEDS: ASPIRIN 81 MG ENTERIC TAB PO SCH (10:42)
[2020-09-03] MEDS: cloNIDine 0.1 MG TAB PO SCH ×2 (10:42→21:00)
[2020-09-03] MEDS: SPIRONOLACTONE 25 MG TAB PO SCH ×2 (10:42→17:14)
[2020-09-03] MEDS: FERROUS SULFATE 325MG TAB PO SCH (10:42)
[2020-09-03] MEDS: CLOPIDOGREL 75 MG TAB PO SCH (10:42)
--- NOTE | 2020-09-03 11:00 | RO ---
OPERATIVE NOTE DATE OF OPERATION: 09/03/2020 PREOPERATIVE DIAGNOSIS: Right abdominal wall abscess. POSTOPERATIVE DIAGNOSIS: Right abdominal wall abscess. PROCEDURE: Bedside incision and drainage of a right abdominal wall abscess. SURGEON: Juan Antonio Jerry DO. DIRECTORY OPERATOR: None. ANESTHESIA: 3 mL of 1% Lidocaine plain. COMPLICATIONS: None. INDICATIONS FOR PROCEDURE: The patient is a 70-year-old male currently being admitted to the hospitalist for CHF and acute on chronic renal disease. During exam, he was found to have an abscess on his right abdominal wall. The patient claims he has had this for over a week. Recommendation is to proceed with a bedside incision and drainage. Risks and benefits of the procedure not limited to, but including bleeding, infection, damage to surrounding structures, and the need for further surgery were discussed in detail with the patient. Informed consent was obtained and the procedure was planned. DESCRIPTION OF PROCEDURE: After obtaining consent, the patient's right abdomen was sterilely prepped and draped with some Betadine. Next, time-out was done with the bedside nurse. Following that, 3 mL of local was injected into the skin and subcutaneous tissue overlying the abscess. Next using an 11-blade, a 1.5 cm incision was made right into the most fluctuant portion in the center of the abscess. Once the incision was created, a fair amount of maroon liquid was expelled. This was likely an infected hematoma from one of his previous insulin injection sites. The wound was probed gently. Cultures were sent. The wound was then covered up with 4 x 4 gauze with this ending the procedure. The patient had no complaints and tolerated the procedure well. Once the gauze and the tape were applied, he was let in stable condition.
[2020-09-03] MEDS: LABETALOL 200 MG TAB PO SCH ×2 (11:17→22:36)
[2020-09-03] MEDS ORDERED: HumaLOG INSULIN (NovoLOG) PER UNIT SC SCH ×2 (12:00→21:00)
[2020-09-03] MEDS ORDERED: ATORVASTATIN 20 MG TAB PO SCH (16:00)
--- NOTE | 2020-09-03 16:39 | CR ---
CONSULTATION DATE: 09/03/2020 REASON FOR CONSULTATION: Shortness of breath in this gentleman with end-stage renal disease. HISTORY OF PRESENT ILLNESS: Mr. Norwood is a 70-year-old gentleman with known history of insulin requiring diabetes, hypertension, peripheral vascular disease, coronary artery disease, recurrent GI bleed with anemia requiring transfusions and history of end-stage renal disease. The patient has been on maintenance hemodialysis and was last dialyzed on Saturday. He presented to the emergency room this morning with shortness of breath and was found to be in congestive heart failure. In addition, his blood pressure was also quite elevated, about 200/100 mmHg. He is being admitted and a nephrology consultation was requested. The patient is seen this morning on his bedside. PAST MEDICAL AND SURGICAL HISTORY: 1. Type I diabetes. Continue on insulin pump. 2. Hypertension. 3. Peripheral vascular disease. 4. Coronary artery disease. 5. End-stage renal disease. 6. History of anemia with recurrent GI bleed. 7. History of chronic GI bleed due to AV malformations. 8. History of peripheral neuropathy. 9. Hypercholesterolemia. 10. Depression. 11. History of spinal stenosis. PAST SURGICAL HISTORY: Quite extensive. 1. Bilateral submandibular gland excision. 2. Femoral artery angioplasty with stents. 3. History of colonoscopies and endoscopies. 4. Right femoropopliteal bypass graft. 5. History of iliofemoral bypass graft. 6. History of bilateral cataracts. 7. AV fistula creation in his right arm. 8. History of multiple endoscopies. FAMILY HISTORY: Significant for coronary artery disease. His father is with pneumonia and there is no family history for end-stage renal disease. PERSONAL AND SOCIAL HISTORY: The patient is and lives with his family. He does not smoke or drink. There is no history of drug use. ALLERGIES: The patient has multiple drug allergies including quinolones, CHARLES inhibitors, nonsteroidals, gabapentin, sulfa and cyclobenzaprine. HOME MEDICATIONS: 1. Insulin via pump. 2. Aspirin 81 mg daily. 3. Atorvastatin 80 mg daily. 4. Calcitriol 0.25 mcg three times a week with dialysis. 5. Calcium carbonate 600 mg daily. 6. Citalopram 40 mg daily. 7. Clonidine 0.1 mg b.i.d. 8. Plavix 75 mg daily. 9. Vitamin D 50,000 units once a week. 10. Ferrous sulfate 325 mg daily. 11. Labetalol 200 mg b.i.d. 12. Losartan 50 mg daily. 13. Mirtazapine 15 mg at bedtime. 14. Pantoprazole 40 mg b.i.d. and spironolactone 25 mg b.i.d. REVIEW OF SYSTEMS: The patient denies any fever or chills. He denies any headache. Ears, nose and throat are unremarkable. Cardiovascular system is significant for dyspnea and some leg edema. Denies any chest pain at present. Respiratory system is negative for hemoptysis or cough. The patient denies any pleuritic type of chest pain. GI system is negative for nausea or vomiting. There is no history of diarrhea or abdominal pain. system is negative for dysuria or hematuria. Endocrine system is significant for secondary hyperparathyroidism in addition to insulin requiring diabetes. Psychosocial system is significant for depression. Neurological system is significant for peripheral neuropathy. Hematological system is significant for chronic anemia with recurrent and chronic GI bleed with AV malformations. Skin is negative for rash or ulcers. Musculoskeletal system is significant for spinal stenosis and mild lower extremity edema. PHYSICAL EXAMINATION: The patient is awake and alert at the time of my visit and not in any acute distress. He is using oxygen via nasal cannula. Temperature 96.7 degrees Fahrenheit, heart is 68 per minute and respiratory rate 18 per minute. Blood pressure 180/76 mmHg and oxygen saturation 98% on two liters oxygen. His head is atraumatic. Neck: Supple and JVD difficult to be assessed. He has no oral thrush or ulcers. Heart sounds are regular and lungs with a few basilar rales. Abdomen is soft, nontender. There is a small abscess on the right side of umbilicus which has been incised and covered with dressing. There is no lymph erythema. His insulin pump is in place on the left side of abdomen. Extremities without any cyanosis or clubbing. AV fistula is patent in the right arm. Neurologically he is awake, alert and acts his baseline mentation. LABORATORY DATA: Today's labs showed WBC count 7.1, hemoglobin 9.3, hematocrit 29.1 and platelets 235. Sodium 141, potassium 4.1, CO2 229, BUN 55 and creatinine 8.94. Glucose 192 and lactic acid 1.4. A BNP level was 58,316. A venous blood gas done in the emergency room showed a pH of 7.29, pCO2 63.6, pO2 35 and bicarb 26. INR 1.0. D-dimer more than 4000. CT scan of chest done in the emergency room today showed mild cardiomegaly and small pleural effusions. He also has some consolidation with ground-glass opacity and septal thickening at the lung bases. Degenerative changes of the spine were also noticed. PROBLEMS: 1. Shortness of breath, most likely multifactorial. The patient does have history of end-stage renal disease and congestive heart failure. He also has bilateral infiltration. We will try to dialyze him as soon as possible and remove about three liters of fluid as tolerated. He should be placed on 1500 mL fluid restriction. 2. Pneumonia. The patient seems to have bilateral infiltrates and is currently afebrile. I would recommend broad spectrum antibiotic as patient is immunocompromised due to end-stage renal disease. 3. Hypertension. Blood pressure is quite elevated at present and he does have history of high blood pressure prior to dialysis. We will remove about three liters of fluid which will help to get his blood pressure down. His chronic medications include clonidine, losartan and labetalol should be continued. We will make adjustments only after his volume status is corrected. 4. Anemia. The patient has multifactorial anemia related to end-stage renal disease and chronic GI blood loss. At present, his anemia stable and does not any urgent intervention. CBC shall be checked again tomorrow. 5. End-stage renal disease. The patient was last dialyzed on Saturday. He is due for dialysis today anyway. He will be dialyzed in the hospital today. Thank you for involving me in the care of Mr. Norwood. I will follow him along with you.
[2020-09-03 18:00] VITALS: BP 116/70
--- NOTE | 2020-09-03 18:18 | ECGEPIP ---
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
[2020-09-03] MEDS ORDERED: LOSARTAN 50MG TABLET PO SCH (21:00)
[2020-09-03] MEDS ORDERED: MIRTAZAPINE 15 MG TAB PO SCH (21:00)
[2020-09-03 22:00] VITALS: BP 113/73
[2020-09-03] MEDS: HEPARIN SOD (PORCINE) 5000UNITS/ML 1ML VIAL/SYRINGE SQ SCH (22:34)
[2020-09-03] MEDS: PANTOPRAZOLE 40MG TAB (PROTONIX) PO SCH (22:35)
[2020-09-03] MEDS: DOXYCYCLINE HYCLATE 100MG TABLET PO SCH (22:35)
[2020-09-03 22:36] VITALS: BP 112/70
[2020-09-04 06:00] VITALS: BP 139/77
[2020-09-04 06:42] LABS: HEMATOCRIT 26.5 % (42.0-52.0); HEMOGLOBIN 8.6 g/dl (13.5-17.5); MEAN CORPUSCULAR HGB CONC 32.5 g/dl (32.0-36.5); MEAN CORPUSCULAR VOLUME 104.7 fl (80.0-96.0); PLATELET COUNT, AUTOMATED 211 10^3/uL (150-450); RED BLOOD COUNT 2.53 10^6/uL (4.30-6.10); WHITE BLOOD COUNT 4.3 10^3/uL (4.0-10.0)
[2020-09-04 07:16] LABS: ALBUMIN 2.8 GM/DL (3.2-5.2); BILIRUBIN,TOTAL 0.5 MG/DL (0.2-1.0); CALCIUM LEVEL 8.6 MG/DL (8.8-10.2); CREATININE FOR GFR 5.72 MG/DL (0.70-1.30); GLOMERULAR FILTRATION RATE 10.5 (>49); MAGNESIUM LEVEL 2.2 MG/DL (1.8-2.4); POTASSIUM SERUM 3.8 MEQ/L (3.5-5.1)
[2020-09-04] MEDS: HEPARIN SOD (PORCINE) 5000UNITS/ML 1ML VIAL/SYRINGE SQ SCH (08:06)
[2020-09-04] MEDS: ASPIRIN 81 MG ENTERIC TAB PO SCH (08:06)
[2020-09-04] MEDS: CLOPIDOGREL 75 MG TAB PO SCH (08:11)
[2020-09-04] MEDS: FERROUS SULFATE 325MG TAB PO SCH (08:11)
[2020-09-04] MEDS: PANTOPRAZOLE 40MG TAB (PROTONIX) PO SCH (08:11)
[2020-09-04] MEDS: DOXYCYCLINE HYCLATE 100MG TABLET PO SCH (08:11)
[2020-09-04] MEDS: LABETALOL 200 MG TAB PO SCH (09:00)
[2020-09-04] MEDS: cloNIDine 0.1 MG TAB PO SCH (09:00)
[2020-09-04] MEDS: SPIRONOLACTONE 25 MG TAB PO SCH (09:00)
[2020-09-04] MEDS ORDERED: DOXY100T PO ×2 (09:34→11:50)
--- NOTE | 2020-09-04 11:40 | IPN ---
PROGRESS NOTE DATE: 09/04/2020 SUBJECTIVE: Mr. Norwood is seen this morning on his bedside. He is feeling much better and lying in the bed comfortably. He is likely to go home today. He reports that he was already told by the hospitalist that he is going to be discharged. The patient was admitted yesterday with shortness of breath and was noticed to be volume overloaded. He underwent hemodialysis and we were able to remove only 2 liters of fluid. He does get hypotension during dialysis, which made fluid removal very difficult. In any event, his symptoms improved even with 2 liters of fluid removal. His blood pressure was quite high yesterday on admission, which has also now improved. I feel that uncontrolled hypertension was also contributing to his symptoms in addition to hypervolemia. OBJECTIVE: GENERAL APPEARANCE: The patient is awake and alert without any acute distress. VITAL SIGNS: Temperature 98 degrees Fahrenheit, heart rate 66 per minute, and respiratory rate 20 per minute. Blood pressure 139/77 mmHg and oxygen saturation 97% on room air. HEAD: Atraumatic. NECK: Supple and JVD difficult to be assessed. HEART: Sounds are regular. LUNGS: Clear to auscultation. ABDOMEN: Soft and nontender. Bowel sounds are normal. EXTREMITIES: Without any cyanosis or clubbing. Right arm AV fistula is patent. NEUROLOGIC: He is awake, alert, and oriented x3. LABORATORY DATA: Today's labs show WBC count 4.3, hemoglobin 8.6, and hematocrit 26.5, platelets 211,000. Sodium 137, potassium 3.8, CO2 of 30, BUN 28, and creatinine 5.72. Glucose 313 and calcium 8.6. Total protein 6.0 and albumin 2.8. PROBLEMS: 1. Shortness of breath most likely related to hypervolemia and uncontrolled hypertension. His symptoms have improved and he is feeling comfortable now. 2. End-stage renal disease. The patient was dialyzed yesterday and his next dialysis is due for tomorrow as an outpatient. 3. Anemia slightly worse, but no urgent indication for a transfusion. We will continue with anemia management and monitor as an outpatient. He does have a history of chronic gastrointestinal (GI) bleed and has required transfusions in the past. It is quite possible that he might need another transfusion, which can be arranged as an outpatient. 4. Uncontrolled hypertension. Yesterday, his blood pressure was quite high, but he was also in respiratory distress and volume overloaded. Today his blood pressure is much better and I will recommend to continue with chronic antihypertensive medications. 5. Disposition: From a renal standpoint, the patient is stable for discharge today and will follow-up in the outpatient dialysis clinic tomorrow.
--- NOTE | 2020-09-04 11:56 | DS.PDOC ---
Discharge Summary General Date of Admission Sep 03, 2020 at 08:47 Date of Discharge 09/04/20 Discharge Summary PROCEDURES PERFORMED DURING STAY: [None]. ADMITTING DIAGNOSES: ESRD (end stage renal disease) on dialysis Diabetes mellitus Dyspnea Hypertensive emergency Skin abscess CHF exacerbation DISCHARGE DIAGNOSES: ESRD (end stage renal disease) on dialysis Diabetes mellitus Dyspnea Hypertensive emergency Skin abscess CHF exacerbation COMPLICATIONS/CHIEF COMPLAINT: Congestive Heart Failure/Esrd. HISTORY OF PRESENT ILLNESS: Patient is 70 years old male with past medical history of end-stage renal diseases, type 1 diabetes on dialysis Saturday, Saturday presented hospital with shortness of breath. Patient stated that he missed dialysis Saturday and after that he developed shortness of breath. Patient denied any fever. He stated he has been having dry cough with small amount of clear sputum. In ER patient was found to have hemoglobin of 9.3, creatinine 8.9. CT chest showed Mild cardiomegaly, small pleural effusions, and consolidation, ground-glass opacity, and septal thickening in the bilateral lung bases. The findings may be due to pulmonary edema, but the amount of consolidation in the lung bases with the near complete lack of septal thickening or ground-glass opacity in the upper lung zones suggests there may b e an infectious or inflammatory process in addition to fluid overload. HOSPITAL COURSE: During hospital stay following issues addressed (1) ESRD (end stage renal disease) on dialysis Nephrology team follows him Patient received dialysis (2) Diabetes mellitus Patient can use his own insulin pump Diabetes diet (3) Dyspnea Patient does not have leukocytosis or fever. Patient has mild dry cough each can be attributed to CHF secondary to volume overload I'm not convinced that patient has pneumonia Resolved after dialysis session (4) Hypertensive emergency Secondary to volume overload Hydralazine IV when necessary Continue home cardioprotective medications (5) Skin abscess Patient stated that he has a skin abscess of right middle abdominal quadrant around 5-7 days. Patient was treated with cephalexin with no improvement incision and drainage was done yesterday Continue doxycycline (6) CHF exacerbation Due to volume overload Diastolic CHF exacerbation Echo from 2018 showed ejection fraction of 60-65% DISCHARGE MEDICATIONS: Please see below. ALLERGIES: Please see below. PHYSICAL EXAMINATION ON DISCHARGE: VITAL SIGNS: Please see below. General Exam: Positive: Alert, Cooperative Eye Exam: Positive: PERRLA ENT Exam: Positive: Atraumatic Neck Exam: Positive: Supple, JVD Chest Exam: Positive: Diminished Heart Exam: Positive: Rate Normal Telemetry: Positive: No significant arrhythmia Abdomen Exam: Positive: Normal bowel sounds Extremity Exam: Negative: Clubbing, Cyanosis Skin Exam: Positive: Nl turgor and temperature, Other skin issue (small subcutaneous abscess in the right middle abdominal quadrant around 4-5 cm) Neuro Exam: Positive: Strength at 5/5 X4 ext, Cranial Nerves 3-12 NL Psych Exam: Positive: Mental status NL LABORATORY DATA: Please see below. PROGNOSIS: Fair ACTIVITY: [As tolerated]. DIET: Cardiac DISPOSITION: 01 Home, Self-Care. 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 TIME SPENT ON DISCHARGE: Greater than 20 minutes. Vital Signs/I&Os Vital Signs Date Time Temp Pulse Resp B/P (MAP) Pulse Ox O2 Delivery O2 Flow Rate FiO2 09/04/20 09:00 0.0 09/04/20 06:00 98.0 66 20 139/77 (97) 97 Nasal Cannula I&O- Last 24 Hours up to 6 AM 09/04/20 06:00 Intake Total 1100 ml Output Total 2000 ml Balance -900 ml Laboratory Data Labs 24H Laboratory Tests 2 09/04/20 06:22: Nucleated Red Blood Cells % (auto) 0.0, Anion Gap 8, Glomerular Filtration Rate 10.5L, Calcium Level 8.6L, Magnesium Level 2.2, Total Bilirubin 0.5, Aspartate Amino Transf (AST/SGOT) 16, Alanine Aminotransferase (ALT/SGPT) 19, Alkaline Phosphatase 80, Total Protein 6.0L, Albumin 2.8L, Albumin/Globulin Ratio 0.9 09/04/20 09:37: Methicillin-Resist S.aureus DNA PCR DETECTEDA CBC/BMP Laboratory Tests 09/04/20 06:22 Microbiology Microbiology 09/03/20 Blood Culture - Preliminary, Resulted No growth after 24 hours . All specim... 09/03/20 Wound Culture - Preliminary, Resulted Staphylococcus Aureus 09/03/20 Blood Culture - Preliminary, Resulted No growth after 24 hours . All specim... Discharge Medications Scheduled Aspirin (Aspirin EC) 81 Mg Tab, 81 MG PO DAILY, (Reported) Atorvastatin Calcium (Atorvastatin Calcium) 80 Mg Tab, 80 MG PO QPM, (Reported) 1600 Calcitriol (Calcitriol) 0.25 Mcg Capsule, 0.25 MCG PO 3XW, (Reported) SATURDAY, SATURDAY, AND SATURDAY AT DIALYSIS Calcium Carbonate (Calcium) 600 Mg Tab, 600 MG PO QPM, (Reported) 1600 Citalopram Hydrobromide (Citalopram HBr) 40 Mg Tab, 40 MG PO DAILY, (Reported) Clonidine HCl (Clonidine HCl) 0.1 Mg Tablet, 0.1 MG PO BID, (Reported) Clopidogrel Bisulfate (Clopidogrel) 75 Mg Tab, 75 MG PO DAILY, (Reported) Doxycycline Hyclate (Doxycycline Hyclate) 100 Mg Tablet, 100 MG PO BID take pills with plenty of fluid Ergocalciferol (Vitamin D2) (Vitamin D2) 50,000 Units Cap, 50,000 UNITS PO 1XWK, (Reported) SATURDAY Ferrous Sulfate (Ferrous Sulfate) 325 Mg Tablet.dr, 325 MG PO DAILY, (Reported) Insulin Human Lispro (Humalog) 100 Unit/1 Ml Vial, 1 DOSE SC ASDIRECTED, (Reported) VIA INSULIN PUMP: 0000 - 0400 : 0.6 UNITS/HR 0400 - 2100 : 0.3 UNITS/HR 2100 - 0000 : 0.6 UNITS/HR CARB RATIO 12 CARBS PER UNIT Labetalol HCl (Labetalol HCl) 200 Mg Tablet, 200 MG PO BID, (Reported) Losartan Potassium (Losartan Potassium) 50 Mg Tablet, 50 MG PO QHS, (Reported) Mirtazapine (Remeron) 15 Mg Tablet, 45 MG PO QHS, (Reported) Pantoprazole Sodium (Pantoprazole Sodium) 40 Mg Tab, 40 MG PO BID, (Reported) Spironolactone (Spironolactone) 25 Mg Tab, 25 MG PO BID, (Reported) Scheduled PRN Albuterol Sulf (Albuterol Sulfate) 2.5 Mg/3 Ml Vial.neb, 2.5 MG INH Q4H PRN for SHORTNESS OF BREATH, (Reported) Hydrocodone/Acetaminophen (Hydrocodone-Acetamin 5-325 mg) 1 Each Tablet, 1 TAB PO Q6H PRN for PAIN, (Reported) Ipratropium/Albuterol Sulfate (Combivent Respimat 20-100 Mcg) 4 Gm Mist.inhal, 2 PUFF INH Q4H PRN for SOB/WHEEZING, (Reported) Allergies Coded Allergies: Quinolones (Verified Allergy, Mild, RASH, 02/16/19) CHARLES Inhibitors (Verified Adverse Reaction, Intermediate, ARF, 02/16/19) NSAIDS (Non-Steroidal Anti-Inflamma (Verified Adverse Reaction, Intermediate, KIDNEY DAMAGE, 02/16/19) celecoxib (Verified Adverse Reaction, Intermediate, KIDNEY DAMAGE, 02/16/19) gabapentin (Verified Adverse Reaction, Intermediate, personality changes, 02/17/19) ibuprofen (Verified Adverse Reaction, Intermediate, KIDNEY DAMAGE, 02/16/19) lisinopril (Verified Adverse Reaction, Intermediate, RENAL FAILURE, 02/16/19) sulfamethoxazole (Verified Adverse Reaction, Intermediate, RENAL FAILURE, 02/16/19) trimethoprim (Verified Adverse Reaction, Intermediate, RENAL FAILURE, 02/16/19) cefazolin (Verified Adverse Reaction, Mild, DIZZINESS, 02/16/19) cyclobenzaprine (Verified Adverse Reaction, Mild, DIZZINESS, 02/16/19) hydrochlorothiazide (Verified Adverse Reaction, Mild, DIZZINESS, 02/16/19) triamterene (Verified Adverse Reaction, Mild, DIZZINESS, 02/16/19) ED BUI DO Sep 04, 2020 11:55
== END 2020-09-04 11:36 | disposition home or self-care (01) | DRG 291 ==
LOC: M ED 02:48 → M ED INP 08:47 → ENRESERV 09:12 → M MSPAV 10:14
PROVIDERS: ADMIT Internal Medicine; ATTEND Internal Medicine
PROC: 0H97XZZ Drainage of Abdomen Skin, External Approach (ICD-10-PCS; principal; 2020-09-03)
PROC: 5A1D70Z Performance of Urinary Filtration, Intermittent, Less than 6 Hours Per Day (ICD-10-PCS; 2020-09-03)
DX: I13.2 Hypertensive heart and chronic kidney disease with heart failure and with stage 5 chronic kidney disease, or end stage renal disease (principal); I50.33 Acute on chronic diastolic (congestive) heart failure; N18.6 End stage renal disease; I16.1 Hypertensive emergency; L02.211 Cutaneous abscess of abdominal wall; J44.9 Chronic obstructive pulmonary disease, unspecified; E10.22 Type 1 diabetes mellitus with diabetic chronic kidney disease; E10.51 Type 1 diabetes mellitus with diabetic peripheral angiopathy without gangrene; I25.10 Atherosclerotic heart disease of native coronary artery without angina pectoris; Z66 Do not resuscitate; F34.1 Dysthymic disorder; D63.1 Anemia in chronic kidney disease; E78.00 Pure hypercholesterolemia, unspecified; I95.3 Hypotension of hemodialysis; E10.42 Type 1 diabetes mellitus with diabetic polyneuropathy; Z99.2 Dependence on renal dialysis; Z89.421 Acquired absence of other right toe(s); Z95.820 Peripheral vascular angioplasty status with implants and grafts; Z98.41 Cataract extraction status, right eye; Z98.42 Cataract extraction status, left eye; Z79.82 Long term (current) use of aspirin; Z79.02 Long term (current) use of antithrombotics/antiplatelets; Z79.4 Long term (current) use of insulin; Z79.899 Other long term (current) drug therapy; Z88.1 Allergy status to other antibiotic agents; Z88.2 Allergy status to sulfonamides; Z88.8 Allergy status to other drugs, medicaments and biological substances; Z88.6 Allergy status to analgesic agent; Z20.828 Contact with and (suspected) exposure to other viral communicable diseases; Z91.15 Patient's noncompliance with renal dialysis

== ENCOUNTER 2020-09-10 04:34 | Inpatient (IN) | payer MEDICARE ==
[~2020-09-10] VITALS: Ht 165.1 cm; Wt 67.9 kg
[~2020-09-10 04:34] MED LIST changes: +DOXY100T PO; +KEFL250C11 PO
[2020-09-10 06:02] LABS: BASO % 0.7 % (0.0-1.0); EOS # 0.1 10^3/uL (0.0-0.5); EOS % 1.9 % (0.0-3.0); HEMATOCRIT 25.9 % (42.0-52.0); HEMOGLOBIN 8.2 g/dl (13.5-17.5); LYMPH # 0.6 10^3/uL (1.5-5.0); LYMPH % 10.1 % (24.0-44.0); MEAN CORPUSCULAR HEMOGLOBIN 34.2 pg (27.0-33.0); MEAN CORPUSCULAR HGB CONC 31.7 g/dl (32.0-36.5); MEAN CORPUSCULAR VOLUME 107.9 fl (80.0-96.0); MONO # 0.3 10^3/uL (0.0-0.8); MONO % 4.4 % (0.0-5.0); NEUTROPHILS # 4.6 10^3/uL (1.5-8.5); NEUTROPHILS % 81.5 % (36.0-66.0); PLATELET COUNT, AUTOMATED 204 10^3/uL (150-450); WHITE BLOOD COUNT 5.7 10^3/uL (4.0-10.0)
[2020-09-10] MEDS: COMBIVENT RESPIMAT 100-20MCG INHALER 4GM INH SCH ×3 (06:17→06:52)
[2020-09-10 06:58] LABS: ALBUMIN 2.9 GM/DL (3.2-5.2); ALT/SGPT 15 U/L (12-78); BILIRUBIN,DIRECT 0.1 MG/DL (0.0-0.2); BILIRUBIN,TOTAL 0.4 MG/DL (0.2-1.0); BLOOD UREA NITROGEN 59 MG/DL (7-18); CALCIUM LEVEL 7.7 MG/DL (8.8-10.2); CARBON DIOXIDE LEVEL 24 MEQ/L (21-32); CHLORIDE LEVEL 107 MEQ/L (98-107); CK-MB VALUE MASS 2.4 NG/ML (<3.6); CPK CREATINE PHOSPHOKINASE 74 U/L (39-308); CREATININE FOR GFR 7.92 MG/DL (0.70-1.30); GLOMERULAR FILTRATION RATE 7.2 (>49); GLUCOSE, FASTING 210 MG/DL (70-100); MB/CK RELATIVE INDEX 3.24 (< OR =4); NT-PRO BNP 51330 PG/ML (<125); POTASSIUM SERUM 4.2 MEQ/L (3.5-5.1); SODIUM LEVEL 140 MEQ/L (136-145); TROPONIN I < 0.02 NG/ML (< 0.10)
--- NOTE | 2020-09-10 07:37 | REP ---
INDICATION: DYSPNEA/COUGH COMPARISON: 09/03/2020 cough and dyspnea TECHNIQUE: Portable AP view of the chest FINDINGS: The mediastinum and cardiac silhouette are stable and within normal limits for portable technique. The lung ernandez demonstrate bilateral lower lobe opacities/consolidations similar to prior examination. No new area of consolidation, effusion, or pneumothorax. Skeletal structures intact. IMPRESSION: Bibasilar opacities and consolidations similar to prior examination. <Electronically signed by Dario Adler > 09/10/20 [id number]
[2020-09-10] MEDS ORDERED: DOXY100T2 PO (08:22)
[2020-09-10] MEDS ORDERED: SODIUM CHLORIDE 0.9% 1000ML IV PRN (08:45)
[2020-09-10] MEDS ORDERED: LIDOCAINE 1% SDV 5ML VIAL SC PRN (08:45)
[2020-09-10] MEDS ORDERED: CALCITRIOL 0.25 MCG CAP (S0169) PO SCH (09:00)
--- NOTE | 2020-09-10 09:28 | ECGEPIP ---
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
[2020-09-10] MEDS ORDERED: COMBIVENT RESPIMAT 100-20MCG INHALER 4GM INH PRN (10:00)
[2020-09-10] MEDS ORDERED: HumaLOG INSULIN (NovoLOG) PER UNIT SC SCH (10:00)
[2020-09-10] MEDS ORDERED: ACETAMINOPHEN TAB 650MG DOSE (2X325MG) PO PRN (10:00)
[2020-09-10] MEDS ORDERED: ALBUTEROL SULFATE 2.5 MG/0.5 ML INH NEB SOLN INH PRN (10:00)
--- NOTE | 2020-09-10 14:50 | HPEPDOC ---
[facility] Medical History & Physical Date of Admission Sep 10, 2020 Date of Service: Sep 10, 2020 Primary Care Physician: Mick Rosenberg Other Provider Dr. Armando Cottrell, nephrology; Dr. Tolu Petersen, cardiology Attending Physician: TIMO JAQUEZ MD History and Physical CHIEF COMPLAINT: Shortness of breath HISTORY OF PRESENT ILLNESS: Jonh is a 70yo male with notable PMHx of ESRD on HD (TuTSa), IDDMI on continuous insulin pump, CAD, PVD s/p b/l fem-pop bypass, HTN, chronic anemia 2/2 ESRD and chronic GI bleeds d/t AVMs, HLD, former smoker (35py hx), who pre sented to the [facility] ED in the early hours of 09/10/2020 via EMS with the chief complaint of shortness of breath. He reports his shortness of breath began around midnight on the overnight of . He was lying in bed, awake, trying to fall sleep and suddenly "couldn't catch" his breath. His dyspnea steadily progressed over the next couple of hours despite using both his home inhaler and home nebulizer. Both the inhaler or nebulizer provided some slight improvement but didn't resolve the issue, and he continued to have labored breathing. Around 3 in the morning. He called out to his , who subsequently called 911. He reports an associated chronic cough productive of clear sputum and states that this acute shortness of breath is reminiscent of the same dyspnea he experienced just last week, which necessitated an admission at [facility] from . During the admission last week, it was reported patient had missed his scheduled hemodialysis the day before, so the nephrology service was consulted (Dr. Armando Cottrell) and he was dialyzed while inpatient (2 L removed). There was also a bed side I&D performed on a right middle quadrant abdominal abscess by general surgery (Dr. Jerry), and the patient continues on a 10 day prescription of oral doxycycline. Upon presentation to the ED, he was in sinus bradycardia and subsequently placed on 2 L nasal cannula supplemental oxygen with saturations at 96% or greater. He was found to have elevated blood pressures initially in the high 150s systolic, and upon time of admission evaluation, ranging between 183-215.. CBC revealed macrocytic anemia. Metabolic panel showed electrolytes within normal limits other than borderline hypoCa (ron Ca 8.7) - - Na 140, K 4.2, Cl 107, HCO3 24, BUN 59, Cr 7.9, calculated GFR 7.2%, and sGlu 210, BNP 49977 (5800 on last week's px), total protein 6, albumin 2.9. Chest x-ray showed "bibasilar opacities and consolidation similar to prior exam) from last week's admission, respiratory viral panel was negative, and an ABG was unremarkable. At time of admission, he was still complaining of labored breathing, but significantly lessened from the overnight; he reports it's more difficult to get air in and to breathe out. The patient was subsequently admitted under the care of the hospitalist service with a chief diagnosis of fluid overload secondary to end-stage renal disease greater than 60 hours from last hemodialysis session. The nephrology service (Dr. Savi Cottrell) was consulted, and they afternoon hemodialysis session was planned with a goal of 3 L to be removed. Per the patient, he usually receives his hemodialysis on a TThSa schedule, but due to the holiday this week, he was planned for a MWSa schedule. He did attend his last scheduled outpatient hemodialysis session on Saturday, 09/07. Patient's primary care providers Dr. Mick Rosenberg. In addition to Dr. king, he follows at the [facility] in [place], [place] for his diabetes care, follows with Dr. Petersen of cardiology, and Dr. Angulo of vascular surgery. In the ED, verbally confirmed his DNR/DNI status and a most form was present confirming this. He has an extensive allergy list which is detailed below. 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 Chronic recurrent GI bleed due to AV malformations Hypercholesterolemia Spinal stenosis Depression PAST SURGICAL HISTORY: Femoral artery angioplasty with stents. Right femoral popliteal bypass graft. Iliofemoral bypass graft. Bilateral submandibular gland excision. History of multiple colonoscopies and endoscopies. AV fistula creation and right forearm. Bilateral cataract surgery SOCIAL HISTORY: , lives with his in [place]. Has two adult sons. Retired after working for 40+ years at [employer]. Former smoker having quit in 2006 after smoking one pack per day of cigarettes for 3536 years. Reports having one drink of alcohol every month. Denies any current or former history of illicit drug use. FAMILY HISTORY: Father: , reportedly of complications from pneumonia Mother: Living, 91 years old; CAD and HTN Younger son: DMI ALLERGIES: Please see below. REVIEW OF SYSTEMS: CONSTITUTIONAL: Denies recent unintentional change in weight, fever, chills, or night sweats HEENT: Denies blurry vision, double vision, ear pain, tinnitus, dysphagia, or odynophagia CARDIOVASCULAR: Denies chest pain, chest pressure, or palpitations RESPIRATORY: Reports shortness of breath as detailed in HPI, with chronic productive cough of clear sputum. Denies pleuritic chest pain. GASTROINTESTINAL: Denies abdominal pain, nausea, vomiting, constipation, diarrhea, blood in stool GENITOURINARY: Reports still making urine. Denies dysuria or hematuria SKIN: Denies any pain, drainage, or increased swelling at site of right middle abdominal quadrant abscess post-I&D last week NEUROLOGICAL: Denies headache, dizziness, lightheadedness PSYCHIATRIC: Denies any significant recent change in baseline as it relates to his depression HEMATOLOGIC/LYMPHATIC: Denies easy bleeding, easy bruising, or any new lumps or bumps HOME MEDICATIONS: Please see below. PHYSICAL EXAMINATION: VITAL SIGNS: Temperature 96.7, pulse 60, respiratory rate 20, blood pressure 213/94, pulse oximetry, 100% on 2 L NC GENERAL APPEARANCE: Elderly male lying upright in bed. Wearing nasal cannula oxygen. Alert and oriented 3. Appears somewhat tired but in no acute respiratory distress. HEENT: Normocephalic, atraumatic. Some scant scleral icterus with conjunctival pallor. Noninjected sclera. Wearing nasal cannula. Dry mucous membranes with no upper teeth present. NECK: Supple. Trachea midline. No lymphadenopathy appreciated. CARDIOVASCULAR: Bradycardic rate, regular rhythm. Normal S1, S2. Heart sounds somewhat distant, making it difficult to accurately assess for any murmurs or rubs. Palpable thrill of right upper extremity AV fistula. 2+ left radial pulse. LUNGS: Diminished breath sounds throughout with decreased tidal volume and somewhat poor respiratory effort. There is some scant diffuse wheezes bilaterally as well as inspiratory crackles at left base posteriorly. Patient is wearing 2 L nasal cannula. Symmetric chest expansion. Able to speak in full sentences. No significant accessory muscle use noted. ABDOMEN: Soft, nontender, nondistended. No rigidity appreciated. There is a roughly 3 cm in diameter erythematous circumferential area of the right lower abdomen periumbilically. There is scabbing over the center. The area with no active drainage, significant warmth, or induration. Normoactive bowel sounds throughout. MUSCULOSKELETAL: /5 muscle strength testing of UE & LE b/l EXTREMITIES: AV fistula in distal right forearm with palpable thrill. Bilateral lower extremities are free of edema. No calf tenderness bilaterally. 2+ left radial pulse. NEUROLOGICAL: Awake, alert and oriented 3. No focal neurologic deficits appreciated. Non-dysarthric speech. PSYCHIATRIC: Somewhat subdued mood with appropriate appearing affect. LABORATORY DATA: Please see below. IMAGING: Portable chest x-ray, 09/10/2020 FINDINGS: The mediastinum and cardiac silhouette are stable and within normal limits for portable technique. The lung ernandez demonstrate bilateral lower lobe opacities/consolidations similar to prior examination. No new area of consolidation, effusion, or pneumothorax. Skeletal structures intact. IMPRESSION: Bibasilar opacities and consolidations similar to prior examination. MICROBIOLOGY: Please see below. ASSESSMENT & PLAN: This is a 70yo male w/ notable h/o ESRD on HD (TThSa), IDMMI, PVD, CAD, HTN, chronic anemia 2/2 ESRD & recurrent GI bleeds d/t AVMs, and HLD, who presented to the ED via EMS with chief complaint of shortness of breath beginning admitted night. During that overnight period. Described it as an inability to "catch his breath" and essentially lead progressed despite home inhaler and nebulizer treatments. With continued labored breathing, he informed his to call 911. Upon presentation he was found to be fluid overloaded, most likely secondary to it being 60+ hours since his last outpatient hemodialysis session. He also had hypertensive urgency with SBPs ranging from 183-213. He was admitted with nephrology service consultation and plan for hemodialysis and reassessment of respiratory status afterwards. Of note, he was admitted last week (09/03- 09/04/2020) for similar complaints of dyspnea after missing an outpt HD session. He also received a bedside I&D during the admission for an abdominal abscess. #Fluid overload 2/2 ESRD on HD (TThSa) -Spoke with the nephrology service (Dr. Savi Cottrell) and a hemodialysis session is planned for today, with the goal of 3 L to be removed. Plan is to reassess his respiratory status after hemodialysis and determine whether or not he should remain in-house for a subsequent session tomorrow (09/11) or be discharged and receive an outpatient hemodialysis session on Saturday (09/12). -Last hemodialysis session was an outpatient appointment on Saturday, 09/07 -official nephrology consultation placed; hospitalist service appreciates nephrology recommendations and collaboration -On physical exam, patient had left basilar crackles -BNP was 51K on px, but of note, was 58K during last week's admission. This elevation is significantly affected by his end-stage renal disease -monitoring I & O #ESRD on HD (TThSa per pt) -please see above assessment notation -f/w Dr. Armando Cottrell of nephrology as outpt #SOB likely 2/2 fluid overload status -Maintaining excellent saturations in the ED -ABG in ED unremarkable -presumed chronic obstructive lung process due to 35 pack year smoking history -O2 titration orders set 88-92%; continuous pulse oximetry -home Combivent and Albuterol inhalers contd prn -home spironolactone contd #Hypertensive urgency -SBPs ranging from 183-213 in the ED -Pt's home antihypertensive medications continued (labetalol bid, clonidine bid, insulin, losartan 50 mg), along w/ spironolactone -undergoing HD today to take goal of 3 L fluid off, which will likely help pressures -Will reassess patient's pressures after hemodialysis today as well as resumption of his home antihypertensive medications. Should he continue to be hypertensive following these interventions, we will reassess for further pressure control options. -Admitted to PCU with telemetry in the event the need for IV blood pressure medications are warranted #Macrocytic hypochromic anemia -presenting Hgb 8.3; of note was 10 during last week's admission -reason hemoglobin is more depressed from recent baseline is likely as a result of hemodilution from his fluid overload status -We will follow-up with a H&H approximate 2 hours after today's hemodialysis session. -Threshold for transfusion is hemoglobin less than 8 -Type and screen has been ordered #Elevated BNP -likely 2/2 ESRD -upon presentation today, BNP was 51,330; of note, was 58,000 during last week's admission #Abdominal abscess, s/p I&D last week -received bedside I&D from general sx (Dr. Jerry) during admission last week -10 day course of doxycycline continued (100 mg bid po) -afebrile with no leukocytosis; physical exam did not show any significant warmth, induration, or drainage from the area #IDDM I on continuous insulin pump -sGlu at px was 210 -nursing orders placed for pt to keep using continuous insulin pump -CC and 2 g Na diet -FSBS ac & hs -follows w/ [facility] as outpt #PVD s/p bypass grafts and stenting -home 81 qd ASA and clopidogrel contd -follows w/ Dr. Angulo of [facility] sx as outpt #History of CAD -home 81 qd ASA and clopidogrel contd -on telemetry -f/w Dr. Petersen of cardiology as outpt #History of HTN -home antihypertensives (clonidine, losartan, labetalol) disease all continued -2 g Na diet -presented today in htn urgency (see above assessment) -undergoing HD today #HLD -home atorvastatin contd #Presumed obstructive lung disease -former smoker with 35-plus pack year history -uses a home Combivent inhaler -O2 titration orders set for 88-92% #GERD -home ppi continued #Presumed Vitamin D deficiency 2/2 ESRD -home calcitriol (3xwk) and Vit D 50,000u (1xwk) contd #DVT prophylaxis: Heparin 5000u BID Disposition: Pending HD session this afternoon and improved fluid status, respiratory status, and decreased BP. Should sxs improve, likely d/c tomorrow w/ outpt HD oin 09/12. Should he remain symptomatic, will likely undergo HD as inpt on 09/11. Vital Signs Vital Signs Date Time Temp Pulse Resp B/P (MAP) Pulse Ox O2 Delivery O2 Flow Rate FiO2 09/10/20 11:13 96.7 59 20 185/74 (111) 98 Nasal Cannula 2.0 Laboratory Data Labs 24H Laboratory Tests 2 09/10/20 05:19: Lactic Acid Level 1.0 09/10/20 05:41: Immature Granulocyte % (Auto) 1.4, Neutrophils (%) (Auto) 81.5H, Lymphocytes (%) (Auto) 10.1L, Monocytes (%) (Auto) 4.4, Eosinophils (%) (Auto) 1.9, Basophils (%) (Auto) 0.7, Neutrophils # (Auto) 4.6, Lymphocytes # (Auto) 0.6L, Monocytes # (Auto) 0.3, Eosinophils # (Auto) 0.1, Basophils # (Auto) 0.0, Nucleated Red Blood Cells % (auto) 0.0, Anion Gap 9, Glomerular Filtration Rate 7.2L, Calcium Level 7.7L, Total Bilirubin 0.4, Direct Bilirubin 0.1, Aspartate Amino Transf (AST/SGOT) 13, Alanine Aminotransferase (ALT/SGPT) 15, Alkaline Phosphatase 79, Total Creatine Kinase 74, Creatine Kinase MB 2.4, Creatine Kinase MB Relative Index 3.24, Troponin I < 0.02, NQ-Ffr-P-Type Natriuretic Peptide 50648H, Total Protein 6.0L, Albumin 2.9L, Albumin/Globulin Ratio 0.9 09/10/20 06:28: POC pH (Misc Panel) 7.396, POC Base Excess (Misc Panel) -1.0, POC Saturated Percent O2 (Misc) 96, POC pO2 (Misc Panel) 82.0, POC pCO2 (Misc Panel) 38.2, POC HCO3 (Misc Panel) 23.4, POC Total CO2 (Misc Panel) 25.0 09/10/20 11:24: Bedside Glucose (Misc Panel) 201H CBC/BMP Laboratory Tests 09/10/20 05:41 Microbiology Microbiology 09/10/20 Respiratory Virus Panel (PCR) ([facility]) - Final, Complete Home Medications Scheduled Aspirin (Aspirin EC) 81 Mg Tab, 81 MG PO DAILY Atorvastatin Calcium (Atorvastatin Calcium) 80 Mg Tab, 80 MG PO QPM 1600 Calcitriol (Calcitriol) 0.25 Mcg Capsule, 0.25 MCG PO 3XW SATURDAY, SATURDAY, AND SATURDAY AT DIALYSIS Calcium Carbonate (Calcium) 600 Mg Tab, 600 MG PO QPM 1600 Citalopram Hydrobromide (Citalopram HBr) 40 Mg Tab, 40 MG PO DAILY Clonidine HCl (Clonidine HCl) 0.1 Mg Tablet, 0.1 MG PO BID Clopidogrel Bisulfate (Clopidogrel) 75 Mg Tab, 75 MG PO DAILY Doxycycline Hyclate (Doxycycline Hyclate) 100 Mg Tablet, 100 MG PO BID Ergocalciferol (Vitamin D2) (Vitamin D2) 50,000 Units Cap, 50,000 UNITS PO 1XWK SATURDAY Ferrous Sulfate (Ferrous Sulfate) 325 Mg Tablet.dr, 325 MG PO DAILY Insulin Human Lispro (Humalog) 100 Unit/1 Ml Vial, 1 DOSE SC ASDIRECTED VIA INSULIN PUMP: 0000 - 0400 : 0.6 UNITS/HR 0400 - 2100 : 0.3 UNITS/HR 2100 - 0000 : 0.6 UNITS/HR CARB RATIO 12 CARBS PER UNIT Labetalol HCl (Labetalol HCl) 200 Mg Tablet, 200 MG PO BID Losartan Potassium (Losartan Potassium) 50 Mg Tablet, 50 MG PO QHS Mirtazapine (Remeron) 15 Mg Tablet, 45 MG PO QHS Pantoprazole Sodium (Pantoprazole Sodium) 40 Mg Tab, 40 MG PO BID Spironolactone (Spironolactone) 25 Mg Tab, 25 MG PO BID Scheduled PRN Albuterol Sulf (Albuterol Sulfate) 2.5 Mg/3 Ml Vial.neb, 2.5 MG INH Q4H PRN for SHORTNESS OF BREATH Hydrocodone/Acetaminophen (Hydrocodone-Acetamin 5-325 mg) 1 Each Tablet, 1 TAB PO Q6H PRN for PAIN Ipratropium/Albuterol Sulfate (Combivent Respimat 20-100 Mcg) 4 Gm Mist.inhal, 2 PUFF INH Q4H PRN for SOB/WHEEZING Allergies Coded Allergies: Quinolones (Verified Allergy, Mild, RASH, 02/16/19) CHARLES Inhibitors (Verified Adverse Reaction, Intermediate, ARF, 02/16/19) NSAIDS (Non-Steroidal Anti-Inflamma (Verified Adverse Reaction, In termediate, KIDNEY DAMAGE, 02/16/19) celecoxib (Verified Adverse Reaction, Intermediate, KIDNEY DAMAGE, 02/16/19) gabapentin (Verified Adverse Reaction, Intermediate, personality changes, 02/17/19) ibuprofen (Verified Adverse Reaction, Intermediate, KIDNEY DAMAGE, 02/16/19) lisinopril (Verified Adverse Reaction, Intermediate, RENAL FAILURE, 02/16/19) sulfamethoxazole (Verified Adverse Reaction, Intermediate, RENAL FAILURE, 02/16/19) trimethoprim (Verified Adverse Reaction, Intermediate, RENAL FAILURE, 02/16/19) cefazolin (Verified Adverse Reaction, Mild, DIZZINESS, 02/16/19) cyclobenzaprine (Verified Adverse Reaction, Mild, DIZZINESS, 02/16/19) hydrochlorothiazide (Verified Adverse Reaction, Mild, DIZZINESS, 02/16/19) triamterene (Verified Adverse Reaction, Mild, DIZZINESS, 02/16/19) A-FIB/CHADSVASC A-FIB History Current/History of A-Fib/PAF?: No Current PO Anticoag Therapy: No GME ATTESTATION GME ATTESTATION My faculty preceptor for this patient encounter was physically present during the encounter and was fully available. All aspects of the patient interview, examination, medical decision making process, and medical care plan development were reviewed and approved by the faculty preceptor. The faculty preceptor is aware and concurs with the plan as stated in the body of this note and will attest to such by his/her cosignature. ATTENDING NOTE I, Timo Jaquez, have independently examined this patient and performed my own physical exam, as well as reviewed the documentation and edited where necessary. I have discussed in detail with the resident / student the findings and plan of treatment as documented by the resident / student and edited their note. I agree with their findings and treatment plan and have edited their documentation. I will continue to follow the patient during this hospital stay. KESHAV AYON D.O. Sep 10, 2020 14:49 TIMO JAQUEZ MD Sep 10, 2020 17:49
[2020-09-10] MEDS ORDERED: NORCO, ANEXSIA 5/325MG TABLET (HYDROcodone/ACETAMINOPHEN) PO PRN (15:30)
[2020-09-10 16:00] VITALS: BP 178/60; O2SAT 96
[2020-09-10] MEDS ORDERED: ATORVASTATIN 20 MG TAB PO SCH (16:00)
[2020-09-10] MEDS: LABETALOL 200 MG TAB PO SCH ×2 (16:16→21:00)
[2020-09-10] MEDS: FERROUS SULFATE 325MG TAB PO SCH (16:17)
[2020-09-10] MEDS: ASPIRIN 81 MG ENTERIC TAB PO SCH (16:17)
[2020-09-10] MEDS: CLOPIDOGREL 75 MG TAB PO SCH (16:17)
[2020-09-10] MEDS: SPIRONOLACTONE 25 MG TAB PO SCH ×2 (16:17→21:01)
[2020-09-10] MEDS: DOXYCYCLINE HYCLATE 100MG TABLET PO SCH (16:18)
[2020-09-10 17:00] VITALS: O2SAT 94
[2020-09-10] MEDS ORDERED: DARBEPOETIN 100 MCG/0.5 ML *DIALYSIS* SYRINGE (J0882) IV SCH (17:00)
[2020-09-10 17:49] VITALS: BP 143/58
--- NOTE | 2020-09-10 18:11 | CR ---
CONSULTATION DATE: 09/10/2020 REQUESTING PHYSICIAN: Dr. Timo Jaquez CONSULTING PHYSICIAN: Dr. Savi Cottrell REASON FOR CONSULTATION: Management of end-stage renal disease on hemodialysis in this patient with fluid overload. HISTORY OF PRESENT ILLNESS: Mr. Norwood is well known to me. He is a 70-year-old male with a past medical history of hemodialysis on Saturday, , Saturday schedule, insulin-dependent type 1 diabetes mellitus, coronary artery disease, peripheral vascular disease, and other comorbid conditions mentioned below. Patient presented to the emergency room today with complaint of shortness of breath that had begun last night and was progressive. His last dialysis was on Saturday, and he was due for dialysis in the outpatient unit today (schedule was adjusted this week due to the New 's holiday). In the emergency room, patient was found to be hypertensive but had acceptable oxygen saturations on room air. Laboratory studies revealed elevated brain natriuretic peptide (BNP), and chest x-ray revealed bibasilar opacification and consolidation. Patient was arranged to have hemodialysis this afternoon. MEDICAL HISTORY: 1. End-stage renal disease, on hemodialysis on Saturday, , Saturday schedule. 2. Type 1 diabetes mellitus with neuropathy. 3. Peripheral vascular disease. 4. Coronary artery disease. 5. Chronic anemia of renal failure. 6. History of gastrointestinal (GI) bleed. 7. Arteriovenous (AV) malformation 8. Dyslipidemia. 9. Spinal stenosis. 10. Secondary hyperparathyroidism of renal origin. 11. Depression. 12. Hypertension. 13. Gastroesophageal reflux disease (GERD). SURGICAL HISTORY: Extensive and includes: 1. Bilateral submandibular gland excision. 2. Femoral artery angioplasty with stents. 3. History of colonoscopies and endoscopies. 4. Right femoral-popliteal bypass graft. 5. History of iliofemoral bypass graft. 6. Bilateral cataracts. 7. Arteriovenous (AV) fistula of the right arm. FAMILY HISTORY: Significant for coronary artery disease. PERSONAL AND SOCIAL HISTORY: He is . He lives with his family. He does not smoke, drink, or use illicit drugs. ALLERGIES: QUINOLONES, ANGIOTENSIN-CONVERTING ENZYME (CHARLES) INHIBITOR, NONSTEROIDAL ANTI-INFLAMMATORY DRUGS (NSAIDS), GABAPENTIN, SULFA, CYCLOBENZAPRINE. HOME MEDICATIONS: - insulin pump - aspirin 81 mg by mouth daily - atorvastatin 80 mg by mouth daily - calcitriol 0.25 mcg by mouth three times a week with dialysis - Tums 600 mg by mouth daily - citalopram 40 mg daily - clonidine 0.1 mg by mouth twice a day - Plavix 75 mg daily - vitamin D 50,000 units once weekly - ferrous sulfate 325 mg by mouth daily - labetalol 200 mg by mouth twice a day - losartan 50 mg daily - mirtazapine 50 mg at bedtime - Protonix 40 mg twice a day - spironolactone 25 mg twice a day REVIEW OF SYSTEMS: CONSTITUTIONAL: Denies fevers, chills. Denies headache. ENT: He denies rhinorrhea or dysphagia. CARDIAC: He reports dyspnea on exertion. He denies chest pain. RESPIRATORY: Positive for shortness of breath and dyspnea. GASTROINTESTINAL: Negative for nausea and vomiting. GENITOURINARY: Negative for dysuria or hematuria. ENDOCRINE: Significant for secondary hyperparathyroidism of renal origin and insulin-dependent diabetes. PSYCHOSOCIAL: Significant for depression. NEUROLOGIC: Significant for peripheral neuropathy. He denies fever or syncope. HEMATOLOGIC: Significant for chromic anemia with recurrent and chronic GI bleed related to AV malformation. Negative for rash or ulcers. MUSCULOSKELETAL: Significant for spinal stenosis. He denies gout. PHYSICAL EXAMINATION: Vital signs: Temperature 98.9, pulse 58, respiratory rate 18, blood pressure 158/69, saturating 96% on 2 liters nasal cannula. General: Patient is seen in the emergency room this morning and later in the afternoon in the hemodialysis unit receiving his treatment. Elderly male, awake, alert, oriented in no apparent distress. Extraocular muscles are intact. Tongue is moist. Neck is supple. Nasal cannula is in place. Heart sound are bradycardic, S1, S2. There is no leg edema. Lungs show diminished breath sounds at both bases and some bibasilar rales. No accessory muscle use. No tachypnea. He is seen on nasal cannula. Abdomen is soft and nontender. There are bowel sounds present. Extremities show AV fistula in the right arm, which is patent and in use. The legs show no edema. Musculoskeletal: He moves all four extremities on command. Neurologic: Oriented times three. Interactive, at baseline mentation. Skin shows pallor and is warm and dry. LABORATORY DATA: White count 5.7, hemoglobin 8.2, platelets 204. Sodium 140, potassium 4.2, bicarbonate 25. BNP 51,000. Chest x-ray: Bibasilar consolidation. INPATIENT MEDICATIONS: - Tylenol as needed - albuterol every 4 hours - aspirin 81 mg by mouth daily - atorvastatin 80 mg by mouth every evening - calcitriol 0.25 mcg Saturday, , Saturday - citalopram 40 mg by mouth daily - clonidine 0.1 mg by mouth twice a day - Plavix 75 mg by mouth daily - Aranesp with dialysis - doxycycline 100 mg by mouth twice a day - iron sulfate 325 mg by mouth daily - heparin 5000 units subcutaneous every 12 hours - insulin - labetalol 200 mg by mouth twice a day - losartan 50 mg by mouth every night - mirtazapine 45 mg by mouth every night - Protonix 40 mg by mouth twice a day - spironolactone 25 mg by mouth twice a day - vitamin D 50,000 units of Wednesdays PROBLEMS: 1. End-stage renal disease, on hemodialysis on a Saturday, , Saturday schedule. The patient is very compliant for the most part; however, this is because of the s Whit schedule that dialysis unit changed his days to Saturday, Saturday, Saturday. Because of the stretch in between dialysis treatments, the patient became progressively short of breath and dyspneic, and he presented to the emergency room (ER) for the same. He was arranged to be dialyzed early this afternoon with fluid removal goal of 2.5 liters as tolerated by his hemodynamics, and he should continue with oral fluid restriction. 2. Fluid overload secondary to long stretch between his dialysis treatments due to the s Whit holiday. He was last dialyzed September 07, and he was scheduled for outpatient treatment today, September 10; he was dyspneic even at rest and presented to the ER. He is dialyzed today, and 2300 mL of fluid was removed with his treatment. Depending on how he clinically feels, we will decide upon the day of his next dialysis treatment. 3. Hypertension. Status post hypertensive urgency. It is due to fluid overload as well, and blood pressures will improve with fluid removal, and he is back on his home antihypertensive regimen. 4. Anemia related to chronic renal failure and also due to history of recurrent GI bleed and arteriovenous malformation. Hemoglobin is 8.2. There is likely an element of hemodilution, and I suspect hemoglobin will improve after we remove some fluid with dialysis. He is ordered for Aranesp with his treatment. He is also on iron tablet. Thank you for involving me the in care of Mr. Norwood. I will be happy to follow him along with you.
[2020-09-10 18:15] LABS: HEMATOCRIT 27.7 % (42.0-52.0); HEMOGLOBIN 9.2 g/dl (13.5-17.5)
[2020-09-10 20:00] VITALS: BP 128/52
[2020-09-10] MEDS ORDERED: MIRTAZAPINE 15 MG TAB PO SCH (21:00)
[2020-09-10] MEDS ORDERED: LOSARTAN 50MG TABLET PO SCH (21:00)
[2020-09-10] MEDS: PANTOPRAZOLE 40MG TAB (PROTONIX) PO SCH (21:02)
[2020-09-10] MEDS: cloNIDine 0.1 MG TAB PO SCH (21:03)
[2020-09-10] MEDS: HEPARIN SOD (PORCINE) 5000UNITS/ML 1ML VIAL/SYRINGE SQ SCH (21:03)
[2020-09-11] VITALS: BP 130/56
[2020-09-11 04:00] VITALS: BP 150/70
[2020-09-11] MEDS: DOXYCYCLINE HYCLATE 100MG TABLET PO SCH (05:10)
[2020-09-11 05:52] LABS: HEMATOCRIT 27.6 % (42.0-52.0); MEAN CORPUSCULAR HEMOGLOBIN 34.5 pg (27.0-33.0); MEAN CORPUSCULAR HGB CONC 32.6 g/dl (32.0-36.5); MEAN CORPUSCULAR VOLUME 105.7 fl (80.0-96.0); PLATELET COUNT, AUTOMATED 218 10^3/uL (150-450); RED BLOOD COUNT 2.61 10^6/uL (4.30-6.10); WHITE BLOOD COUNT 5.5 10^3/uL (4.0-10.0)
[2020-09-11 06:18] LABS: CALCIUM LEVEL 8.5 MG/DL (8.8-10.2); CREATININE FOR GFR 5.51 MG/DL (0.70-1.30); MAGNESIUM LEVEL 2.1 MG/DL (1.8-2.4); POTASSIUM SERUM 3.4 MEQ/L (3.5-5.1)
[2020-09-11 08:00] VITALS: BP 170/60
[2020-09-11] MEDS ORDERED: CitaloPRAM (CeleXA) 20 MG TAB PO SCH (09:00)
[2020-09-11 09:38] VITALS: BP 170/60
[2020-09-11] MEDS: cloNIDine 0.1 MG TAB PO SCH (09:38)
[2020-09-11] MEDS: LABETALOL 200 MG TAB PO SCH (09:39)
[2020-09-11] MEDS: FERROUS SULFATE 325MG TAB PO SCH (09:39)
[2020-09-11] MEDS: SPIRONOLACTONE 25 MG TAB PO SCH (09:39)
[2020-09-11] MEDS: PANTOPRAZOLE 40MG TAB (PROTONIX) PO SCH (09:39)
[2020-09-11] MEDS: ASPIRIN 81 MG ENTERIC TAB PO SCH (09:39)
[2020-09-11] MEDS: CLOPIDOGREL 75 MG TAB PO SCH (09:39)
[2020-09-11] MEDS: HEPARIN SOD (PORCINE) 5000UNITS/ML 1ML VIAL/SYRINGE SQ SCH (09:40)
--- NOTE | 2020-09-11 11:34 | DS.PDOC ---
Discharge Summary General Date of Admission Sep 10, 2020 at 09:47 Date of Discharge 09/11/2020 Discharge Summary PROCEDURES PERFORMED DURING STAY: [None]. ADMITTING DIAGNOSES / DISCHARGE DIAGNOSES: s/p Fluid overload 2/2 ESRD on HD (MWF) ESRD on HD (MWF) SOB likely 2/2 fluid overload status Hypertensive urgency Macrocytic hypochromic anemia Elevated BNP Abdominal abscess, s/p I&D last week IDDM1 on continuous insulin pump PVD s/p bypass grafts and stenting CAD HTN DLP Obstructive lung disease GERD Presumed Vitamin D deficiency 2/2 ESRD DVT prophylaxis COMPLICATIONS/CHIEF COMPLAINT: Shortness of breath HISTORY OF PRESENT ILLNESS / HOSPITAL COURSE: Patient is a 68-year-old male with a past medical history of end-stage renal disease, insulin-dependent diabetes mellitus type 1 on a continuous insulin pump, coronary artery disease, peripheral vascular disease, hypertension, chronic anemia and history of GI bleeds who presented to emergency room with complaints of shortness of breath. Upon arrival to emergency room, patient was found to have signs of fluid overload. Patient regularly receives dialysis Saturday, Saturday, Saturday, however, his dialysis session was adjusted to Saturday, and Saturday. Patient received his last dialysis session on . However, on Saturday morning was expressing worsening shortness of breath, that prompted his arrival to the emergency room. Patient was admitted to the hospitalist service for further evaluation and treatment. Nephrology was called on consultation. Patient received dialysis without any complications on 09/10/2020 and patient was ultimately discharged on 09/11/2020 with instructions to follow up with his primary care provider and nephrology within the next 7 days. Patient will be resuming his home medications. No new medications have been prescribed. DISCHARGE MEDICATIONS: Please see below. ALLERGIES: Please see below. PHYSICAL EXAMINATION ON DISCHARGE: Vitals (See below) General: Sitting up in bed, appears to be comfortable, AAOx3 HEENT: NC, AT CVS: RRR, +S1S2 Lungs: Fair air entry b/l, faint crackles appreciated at bases, no wheezing or rhonchi Abdomen: Soft, ND, NT Extremities: - Edema, - Calf tenderness LABORATORY DATA: Please see below. ACTIVITY: [As tolerated]. DISCHARGE PLAN: Please follow-up with primary care provider and nephrology within the next 7 of days Remain compliant with treatment plan and medications Return to the ER if you experience any problems DISPOSITION: Home DISCHARGE CONDITION: [Stable]. TIME SPENT ON DISCHARGE: 35 minutes Vital Signs/I&Os Vital Signs Date Time Temp Pulse Resp B/P (MAP) Pulse Ox O2 Delivery O2 Flow Rate FiO2 09/11/20 09:39 60 09/11/20 09:38 170/60 09/11/20 08:00 97.2 17 96 Room Air 09/10/20 11:13 2.0 I&O- Last 24 Hours up to 6 AM 09/11/20 05:59 Intake Total 690 ml Output Total 2300 ml Balance -1610 ml Laboratory Data Labs 24H Laboratory Tests 2 09/11/20 05:28: Nucleated Red Blood Cells % (auto) 0.0, Anion Gap 8, Glomerular Filtration Rate 11.0L, Calcium Level 8.5L, Magnesium Level 2.1 CBC/BMP Laboratory Tests 09/10/20 17:56 09/11/20 05:28 Microbiology Microbiology 09/10/20 Respiratory Virus Panel (PCR) (ADOLFO) - Final, Complete Discharge Medications Scheduled Aspirin (Aspirin EC) 81 Mg Tab, 81 MG PO DAILY, (Reported) Atorvastatin Calcium (Atorvastatin Calcium) 80 Mg Tab, 80 MG PO QPM, (Reported) 1600 Calcitriol (Calcitriol) 0.25 Mcg Capsule, 0.25 MCG PO 3XW, (Reported) SATURDAY, SATURDAY, AND SATURDAY AT DIALYSIS Calcium Carbonate (Calcium) 600 Mg Tab, 600 MG PO QPM, (Reported) 1600 Citalopram Hydrobromide (Citalopram HBr) 40 Mg Tab, 40 MG PO DAILY, (Reported) Clonidine HCl (Clonidine HCl) 0.1 Mg Tablet, 0.1 MG PO BID, (Reported) Clopidogrel Bisulfate (Clopidogrel) 75 Mg Tab, 75 MG PO DAILY, (Reported) Doxycycline Hyclate (Doxycycline Hyclate) 100 Mg Tablet, 100 MG PO BID, (Reported) Ergocalciferol (Vitamin D2) (Vitamin D2) 50,000 Units Cap, 50,000 UNITS PO 1XWK, (Reported) SATURDAY Ferrous Sulfate (Ferrous Sulfate) 325 Mg Tablet.dr, 325 MG PO DAILY, (Reported) Insulin Human Lispro (Humalog) 100 Unit/1 Ml Vial, 1 DOSE SC ASDIRECTED, (Reported) VIA INSULIN PUMP: 0000 - 0400 : 0.6 UNITS/HR 0400 - 2100 : 0.3 UNITS/HR 2100 - 0000 : 0.6 UNITS/HR CARB RATIO 12 CARBS PER UNIT Labetalol HCl (Labetalol HCl) 200 Mg Tablet, 200 MG PO BID, (Reported) Losartan Potassium (Losartan Potassium) 50 Mg Tablet, 50 MG PO QHS, (Reported) Mirtazapine (Remeron) 15 Mg Tablet, 45 MG PO QHS, (Reported) Pantoprazole Sodium (Pantoprazole Sodium) 40 Mg Tab, 40 MG PO BID, (Reported) Spironolactone (Spironolactone) 25 Mg Tab, 25 MG PO BID, (Reported) Scheduled PRN Albuterol Sulf (Albuterol Sulfate) 2.5 Mg/3 Ml Vial.neb, 2.5 MG INH Q4H PRN for SHORTNESS OF BREATH, (Reported) Hydrocodone/Acetaminophen (Hydrocodone-Acetamin 5-325 mg) 1 Each Tablet, 1 TAB PO Q6H PRN for PAIN, (Reported) Ipratropium/Albuterol Sulfate (Combivent Respimat 20-100 Mcg) 4 Gm Mist.inhal, 2 PUFF INH Q4H PRN for SOB/WHEEZING, (Reported) Allergies Coded Allergies: Quinolones (Verified Allergy, Mild, RASH, 02/16/19) CHARLES Inhibitors (Verified Adverse Reaction, Intermediate, ARF, 02/16/19) NSAIDS (Non-Steroidal Anti-Inflamma (Verified Adverse Reaction, Intermediate, KIDNEY DAMAGE, 02/16/19) celecoxib (Verified Adverse Reaction, Intermediate, KIDNEY DAMAGE, 02/16/19) gabapentin (Verified Adverse Reaction, Intermediate, personality changes, 02/17/19) ibuprofen (Verified Adverse Reaction, Intermediate, KIDNEY DAMAGE, 02/16/19) lisinopril (Verified Adverse Reaction, Intermediate, RENAL FAILURE, 02/16) sulfamethoxazole (Verified Adverse Reaction, Intermediate, RENAL FAILURE, 02/16/19) trimethoprim (Verified Adverse Reaction, Intermediate, RENAL FAILURE, 02/16/19) cefazolin (Verified Adverse Reaction, Mild, DIZZINESS, 02/16/19) cyclobenzaprine (Verified Adverse Reaction, Mild, DIZZINESS, 02/16/19) hydrochlorothiazide (Verified Adverse Reaction, Mild, DIZZINESS, 02/16/19) triamterene (Verified Adverse Reaction, Mild, DIZZINESS, 02/16/19) MARY JO MAY MD Sep 11, 2020 11:34
[2020-09-11 12:00] VITALS: BP 170/60
--- NOTE | 2020-09-11 17:35 | IPN ---
PROGRESS NOTE DATE: 09/11/2020 SUBJECTIVE: Jonh is seen and examined this morning at the bedside. He offers no complaints. His shortness of breath resolved after dialysis yesterday. He is discharge pending and wants to go home. Temperature 97.2, pulse 59, respiratory rate 17, blood pressure 170/60, saturating 96% on room air. Intake yesterday was not fully recorded, dialysis yesterday removed 2300, weight in the bed scale today is 67.9 kg. General: Patient is seen lying in bed, elderly male, awake, alert, oriented, and in no apparent distress. Extraocular muscles are intact. Tongue is moist. Neck is supple. Jugular veins are not elevated. Heart sounds are bradycardic, S1, S2, there is no leg edema, peripheral pulses are palpable. Lungs show symmetric air entry bilaterally diminished at the base with no wheezing. Abdomen is soft and nontender. The fistula in the arm is patent with thrill and bruit. Neurologic: He is oriented times three, interactive and conversational. Psychiatric: Appropriate mood and affect. Skin shows some pallor and is warm and dry. LABORATORY DATA: White count 5.5, hemoglobin 9.0, platelet 218, sodium 131, potassium 3.4. INPATIENT MEDICATIONS: Reviewed by myself and no change as compared to the prior past 24 hours. PROBLEMS: 1. End-stage renal disease on hemodialysis on Saturday, , Saturday schedule. The patient came in with fluid overload due to the long stretch between dialysis treatments because of the e schedule change in his dialysis days. He was dialyzed yesterday. We were able to remove 2.3 liters of fluid. His shortness of breath has resolved. I discussed with him that I can set him up with an additional dialysis treatment on 09/12/2020, as an outpatient, however he declines and wants to continue with his usual treatment on Saturday, but he will call the dialysis unit if he notices any increasing dyspnea. 2. Fluid overload. As mentioned above, due to long stretch between dialysis treatments due to holiday he was dialyzed yesterday, 2.3 liters of fluid were removed. His dyspnea resolved and he feels back to baseline, however he is not due for outpatient dialysis treatment again until 09/13/2020. He will call the unit if he feels he needs dialysis on 09/12/2020, he declined that I should set it up for him. 3. Hypertension status post hypertensive urgency. He is back on his home antihypertensive regimen and will continue the same. Blood pressures have improved. 4. Anemia related to chronic renal failure and also due to history of recurrent gastrointestinal (GI) bleed. Hemoglobin is stable but suboptimal at 9. His target hemoglobin is 10-11. His Aranesp will be adjusted in the outpatient hemodialysis unit. 5. Disposition. Patient is acceptable for discharge from nephrology point of view.
[2020-09-14] MEDS ORDERED: VITAMIN D 50,000 UNITS CAPSULE (ERGOCALCIFEROL 1.25MG) PO SCH (09:00)
== END 2020-09-11 12:50 | disposition home or self-care (01) | DRG 640 ==
LOC: M ED 04:34 → M ED INP 09:47 → M PCU 15:50
PROVIDERS: ADMIT Internal Medicine; ATTEND Internal Medicine
PROC: 5A1D70Z Performance of Urinary Filtration, Intermittent, Less than 6 Hours Per Day (ICD-10-PCS; principal; 2020-09-10)
DX: E87.70 Fluid overload, unspecified (principal); N18.6 End stage renal disease; N25.81 Secondary hyperparathyroidism of renal origin; I16.0 Hypertensive urgency; J44.9 Chronic obstructive pulmonary disease, unspecified; K21.9 Gastro-esophageal reflux disease without esophagitis; I25.10 Atherosclerotic heart disease of native coronary artery without angina pectoris; E55.9 Vitamin D deficiency, unspecified; E10.51 Type 1 diabetes mellitus with diabetic peripheral angiopathy without gangrene; Z79.4 Long term (current) use of insulin; D63.1 Anemia in chronic kidney disease; Z79.82 Long term (current) use of aspirin; Z79.899 Other long term (current) drug therapy; Z88.2 Allergy status to sulfonamides; Z88.6 Allergy status to analgesic agent; Z88.8 Allergy status to other drugs, medicaments and biological substances; Z87.891 Personal history of nicotine dependence; E78.5 Hyperlipidemia, unspecified

== ENCOUNTER 2020-09-24 13:56 | Emergency (ER) | payer MEDICARE ==
[2020-09-24] VITALS (8 sets, daily range): BP systolic 186–227; BP diastolic 79–121
[~2020-09-24] VITALS: Ht 165.1 cm; Wt 70.5 kg
[~2020-09-24 13:56] MED LIST changes: +DOXY100T2 PO
--- OUTSIDE RECORDS SUMMARY | 2020-09-24 14:02 | CCD ---
Author Author [employer] em[employer] Organization [facility] [employer] Address Unknown Phone Unavailable Care Team Providers Care Inspector Filters Name Role Phone Mick Rosenberg Unavailable PROBLEMS Type Condition ICD9-CM Code TJS27-AU Code Onset Dates Condition S tatus SNOMED Code Notes Problem Spinal stenosis of lumbar region without neuroge trudi claudication M48.061 Active 43736070 He has pain at 5 0 feet of ambulation, which is significantly affecting his lifestyle. I think this is from his spine disease. The patient was on Cymbalta therapy in the past but is apparently now back on citalopram--no longer on Lexapro apparently due to his insurance issues. He also uses Lidoderm patches on whatever hip is bothering him most when he walks. He had an orthopedic evaluation in October 2017 and was prescribed physical therapy but this was not performed because he was admitted with pneumonia subsequently. Problem History of adenomatous polyp of colon Z86.010 [facility] [id number] Originally identified as having adenomatous polyp in 2004, 2007. A colonoscopy in 2007 revealed an adenomatous polyp, and he had another full endoscopy with capsule enteroscopy in June 2016 and again in April 2018 when he presented with recurrent blood loss anemia. He had a rectal adenomatous polyp in 2015 and another adenomatous polyp in April 2018 but a negative colonoscopy in June 2018. Problem Sensory neuropathy G62.9 Active 53487933 Stab le discomfort. This likely relates to his diabetes. Problem Anemia of renal disease D63.1 Active 51291172 4 His hemoglobin has been followed regularly. He still takes iron 1 pill daily. He had a precipitous drop in his hemoglobin in June 2016 and was admitted, transfused, extensively scoped then. Since then he has had several transfusions and has had full endoscopies throughout 2018. 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 His blood counts are followed at the dialysis unit. He is on Protonix therapy. I believe he also gets Aranesp. He had another precipitous drop in his hemoglobin in May 2019, was transfused 2 units of blood, and has stabilized. It is suspected that he had another subacute bleed and he had repeat full endoscopies in late June 2019. His CBCs are followed twice weekly at dialysis now. Problem Coronary artery disease I25.10 Active 36960936 Had angioplasty 1994, stent in 2001. Last stress test December 2015, next due as per his procedure tech. Last LVEF 60-65% by echocardiogram in July 2018 and radionuclide perfusion stress test in December 2015. Has no angina. On Aspirin, high-dose statin, and he is back on Plavix. Amlodipine, isosorbide, labetalol were all added to his regimen in July 2019 with a hospitalization but he is just on labetalol of those 3 as of June 2020. TORRES inhibitor therapy was stopped because of hyperkalemia. Problem Diabetes mellitus type 1 E10.9 Active 3214623 9 He is on an insulin pump and this is being managed by the [facility]. His hemoglobin A1c was last 7.4% in July 2019; I cannot find a more recent one. 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 Problem Dysthymia F34.1 Active 60414506 On citalopram instead of Lexapro because of insurance issues--and mirtazepine, added 01/2011. He previously was on Cymbalta as of late 2011 but is no longer on that, as far as I can determine. He seems to be doing fairly well in this regard. Problem Peripheral vascular disease I73.9 Active 3609 31046 Has had femoral- popliteal bypass procedures, and he is seen regularly by his vascular surgeon. An attempt at stopping Plavix for LESI therapy resulted in him having chest pain. Problem Do not resuscitate Z66 Active 263877318 Problem End stage renal disease N18.6 Active 40558442 On dialysis. Problem Hypercholesterolemia E78.00 Active 24080320 Hi s lipids have been reasonably controlled on maximal dose Lipitor therapy when tested in September 2018. He may have had further lipid panels since. I will not change his therapy. A switch to Crestor would risk more proteinuria than he already has. Problem New daily persistent headache G44.52 Active 12 [id number] I will have him get a CRP and sedimentation rate to rule out couple arteritis. We will start Topamax for a couple of weeks to see if this alleviates his headache syndrome. Problem Chronic obstructive pulmonary disease, unspecified J44.9 Active 52627181 He has not had an active exacerbation. Jeremy salinas was seen by a loan review analyst in April 2010 at which time he had a CT done. He stopped smoking as of 2007. He was prescribed Breo after he had pneumonia but the cost was prohibitive, as were all other controller inhalers. He has complained of shortness of breath and in the past I have tried Breo again, and also have provided him a Combivent inhaler to use as needed. Breo is not on his list. 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 Cultures were negative. Glucose was low. Calcium pyrophosphate crystals were identified in the fluid. 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 His knee pain had completely resolved as of May 2013 and subsequently, but recurred 05/2017--he received another cortisone injection 05/27/2017. As of February 2018 he had recurrent discomfort which subsequently improved after a cortisone injection on 02/26/2018, and he had a repeat injection for recurrent pain without effusion in February 2020. Problem Hypertension with renal disease I12.9 Active 29196831 Blood pressure is reasonably controlled at present. He was formerly on spironolactone, clonidine (substituted for methyldopa in late 01/2016) and hydralazine which was stopped during his July-August 2018 hospitalization. He was taken off lisinopril and placed on hydralazine therapy in September 2012. As of June 2020 he is off hydralazine 25 mg 3 times a day, continues spironolactone 25 mg twice daily, clonidine 0.1 mg twice daily, labetalol 100 mg twice daily, and he is off Lasix, amlodipine 10 mg daily and isosorbide 30 mg twice daily; he had some medication adjustments during his hospitalization for hypertensive encephalopathy in 07/2019. Problem History of GI bleed Z87.19 Active 975679735 He had a significant gastrointestinal bleed with melena and hemoglobin in the 5 range, 01/29/2018. He was transfused 2 units of packed cells. He had an upper endoscopy which was unremarkable. Previously he had full endoscopy with capsule enteroscopy in June 2016 when he presented with blood loss anemia. He had a rectal adenomatous polyp. He was taken off Plavix therapy but remains on aspirin. He is on Protonix twice a day, which he was on before admission and which he has maintained since admission. He had another transfusion of 2 units of packed cells on 02/13/2018, mid May 2019, January and March 2020. His hemoglobin and hematocrit are followed through the dialysis unit. He had repeat full endoscopies and a capsule enteroscopy in April 2018 and he had a couple of duodenal AVMs. A follow-up upper endoscopy was done in June 2018 and he had an upper endoscopy and colonoscopy in June 2019. Problem Metabolic encephalopathy G93.41 Active 8136509 0 He has an encephalopathy related to hypoxemia from his cardiac arrest in Fall 2017 but is recovering his functional status. Problem History of ventricular fibrillation Z86.79 Acti ve 740331370 He had a cardiac arrest related to ventricular fibrillation in the emergency room in July 2018. He was resuscitated and has a residual encephalopathy. ALLERGIES Allergen (clinical drug ingredient) Drug/Non Drug Allergy do cumented on EMR Reaction Allergy Type Onset Date Status Flexeril causes dizziness Drug Allergy Active tizanidine Tizanidine HCl(NDC Code:[address]-64) Confusion 07/2019 Drug Allergy Active Motrin kidney damage Drug Allergy Active sulfamethoxazole / trimethoprim Bactrim(ND Code:[address]-84) kidney failure Drug Allergy Active Torres Inhibitors kidney failure Non Drug Allergy Active lisinopril kidney failure Drug Allergy Active ENCOUNTERS from 1950 to 2020-09-19 Encounter Location Date Provider Diagnosis [address] [place] [address] 10 Sep, 2020 [facility] Vaccine Route Administration Date Status Zoster 50mcg/0.5mL (Shingrix) Unknown Aug 12, 2019 Ad ministered Zoster 50mcg/0.5mL (Shingrix) Unknown May 20, 2019 Ad ministered Influenza (High Dose 65 & up) Unknown Jun 18, 2017 Ad ministered Influenza (High Dose 65 & up) IM Intramuscular Jun 13, 2016 A dministered Zoster 0.65mL (Zostavax) Unknown Jun 02, 2014 Adminis tered Pneumococcal Adult 0.5mL (Pneumovax 23) Unknown Jun 02, 2014 Administered Influenza (Pharmacy Given) Unknown May 05, 2019 Admin istered TDAP 0.5mL (Boostrix) Unknown February 10, 2008 Administer ed Pneumococcal 0.5mL (Prevnar 13) IM Intramuscular November 09, 2016 Administered Influenza (6mo & up) Fluzone Unknown Jun 02, 2014 Adm inistered SOCIAL HISTORY Sex Assigned At : Social History Observation Description Sex Assigned At Unknown Education: Question Answer Notes Level of Education: Finished High School Audit Question Answer Notes Total Score: 1 Interpretation: Alcohol Education Sexual Hx: Question Answer Notes Had sex in the last 12 months (vaginal, oral, or anal)? No Have you ever had an STD? No Drug and Alcohol Question Answer Notes Total Score: 0 Interpretation: No problems reported Alcohol Screening: Question Answer Notes Did you have a drink containing alcohol in the past year? Ye s Points 1 Interpretation Negative How often did you have six or more drinks on one occas ion in the past year? Never (0 points) How many drinks did you have on a typica l day when you were drinking in the past year? 1 or 2 (0 points) How often did you have a drink containing alcohol in t he past year? Monthly or less (1 point) REASON FOR REFERRAL No Information VITAL SIGNS No information MEDICATIONS Medication SIG (Take, Route, Frequency, Duration) Notes Start Da te End Date Status Ipratropium-Albuterol 20-100 MCG/ACT 1 puff as needed Inhalation every 4 hrs Sep, Active Atorvastatin Calcium 80 MG 1 tablet Orally Once a day for 30 day (s) Sep, Active Calcium 600 600 MG 1 tab Orally Daily Sep, Active Doxycycline Hyclate 100 MG 1 capsule Orally Twice a day Sep, Active Drisdol 89969 UNIT 1 capsule Orally weekly on Saturday for 90 day(s) Unknown Spironolactone 25 mg 1 tablet Orally twice daily Active Topiramate 25 MG 1 tablet Orally Twice a day for 15 days 1 4 Jun, 2020 Unknown Albuterol Sulfate (2.5 MG/3ML) 0.083% 3 ml as needed I nhalation every 4 hrs as needed for SOB Sep, Active Pen [place] 5/16" 30G X 8 MM as directed use with Leve beverly pen as directed. Diagnosis E10.9 for 30 day(s) Aug, Ac tive Lipitor 80 MG 1 tablet Orally Once a day Unknown Glucagon Emergency 1 MG Injection A ctive Mirtazapine 45 MG 1 tablet before bedtime in t he evening Orally Once a day for 90 day(s) Unknown Labetalol HCl 200 MG 1 tablet Orally Twice a day for 90 day(s) Sep, Active Pantoprazole Sodium 40 MG 1 tablet Orally bid Sep, Active Hydrocodone-Acetaminophen 5-325 MG 1 tablet Orally Whit ry 8 hours as needed for neck pain. MDD=3 for 30 Days Aug, Act andrew Losartan Potassium 50 MG 1 tablet Orally Once a day for 30 day(s ) Sep, Active Aspirin 81 MG 1 tablet Orally Once a day Active Remeron SolTab 45 MG 1 tablet on the tongue and a llow to dissolve at bedtime Orally Once a day for 30 day(s) Sep, Active Protonix 40 MG 1 tablet Orally Daily Unknown Iron 325 (65 Fe) MG 1 tablet Orally once daily Unknown Ergocalciferol 42743 IU as directed Orally Active Ferrous Sulfate 325 MG as directed Orally Sep, Active Humalog 100 UNIT/ML as directed Subcutaneous via insulin pump Jun, Active Aranesp (Albumin Free) 200 MCG/ML 200 mcg Injection on Dialysis days Unknown Insulin Syringe 30G X 516 as directed DX: E10.9 3-4 times a day for 90 day(s) Aug, Active Calcitriol 0.25 MCG 1 capsule Orally Once a day on Saturday, , Saturday at dialysis Sep, Active Clonidine HCl 0.1 MG 1 tab Orally twice daily for 2020 Active Clopidogrel Bisulfate 75 MG 1 tablet Orally Once a day for 90 da y(s) Sep, Active Citalopram Hydrobromide 40 MG 1 tab Orally once daily for 90 Sep, Active Combivent Respimat 20-100 MCG/ACT 1 puff Inhalation Ev pantera 4 hours as needed for shortness of breath for 30 days Jun, Unknown PROCEDURES No Information RESULTS No Results REASON FOR VISIT Cancel Appointment Request MEDICAL (GENERAL) HISTORY Type Description Date Medical History Chronic obstructive pulmonary disease, u nspecified Medical History Hypertension Medical History Diabetes mellitus type 1 Medical History Peripheral vascular disease Medical History Spinal stenosis, lumbar region Medical History Coronary artery disease Medical History End stage renal disease Medical History Dysthymia Medical History Anemia of renal disease Medical History Sensory neuropathy Medical History History of adenomatous polyp of colon Medical History Crystal arthropathy, unspecified Medical History Hypercholesterolemia Medical History History of pneumonia Medical History History of GI bleed Medical History Do not resuscitate Surgical History Right submandibular gland excision 1989 Surgical History Left submandibular gland excision 2004 Surgical History PCI femoral arteries 2006 Surgical History colonoscopy 02/10/2008 Surgical History Right femoropopliteal bypass with right second toe amputation- Dr Man 05/2008 Surgical History Bilateral LE angioplasties 11/2008 Surgical History Right ililfenoral bypass graft 04/2009 Surgical History bilateral cataracts removal-left eye fi rst 09/01/2009 Surgical History femoral-popliteal bypass- left side 07/10 Surgical History A-V fistula placement for di alysis access, with subsequent multiple procedures to improve flow--most recenlty in 01/201504/07/[address] Man opened fistula 07/2015, February 2016 Surgical History Colonoscopy with poypectomy/EGD times/c apsule enteroscopy 06/2016 Surgical History EGD 07/24/2016 Surgical History EGD during hospitalization-Dr. Merino 01/31/2018 Surgical History EGD and colonoscopy 07/06/2019 Hospitalization History [facility]- Symptomatic anemia poss ibly secondary to gastrointestinal source 06/29-07/07/2016 Hospitalization History [facility]-Anemia, Melena 01/29-02/01/2018 Hospitalization History [facility]-Epidural placement, left femerol wound eval, femerol artery exploration and repair 07/25-08/12/2018 Hospitalization History [facility]-Encephalopathy secondary to hypo martinez 08/12-08/27/2018 Hospitalization History [facility]-Hyperglyce mily 09/15-09/17/2018 Hospitalization History [facility]-SOB, Fluid overload, ESRD on peri lysis 03/07-03/08/2020 Goals Section No Information Health Concerns No Information MEDICAL EQUIPMENT No Information MENTAL STATUS No Information FUNCTIONAL STATUS No Information ASSESSMENTS No Information PLAN OF TREATMENT No Information Insurance Providers Payer Name Payer Address Payer Phone Insured Name Patient Relati onship to Insured Coverage Start Date Coverage End Date MEDICARE Part A and B [address] [facility] [phone] CHARLIE NORWOOD self [facility] CLAIM [facility] [address] [place] [phone] CHARLIE NORWOOD self
--- OUTSIDE RECORDS SUMMARY | 2020-09-24 14:02 | CCD ---
Author Author [employer] Organization [facility] [employer] Address Unknown Phone Unavailable Care Team Providers Care Sports Journalist Name Role Phone Mick Rosenberg Unavailable PROBLEMS Type Condition ICD9-CM Code [id number] Code Onset Dates Condition S tatus SNOMED Code Notes Problem Spinal stenosis of lumbar region without neuroge trudi claudication M48.061 Active 55856857 He has pain at 5 0 feet [...] History of adenomatous polyp of colon Z86.010 [facility] [id number] Originally identified as having adenomatous polyp in [...] June 2018. 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 This likely relates to his diabetes. Problem Anemia of renal disease D63.1 Active 67176991 4 His hemoglobin has been followed regularly. [...] now. Problem Coronary artery disease I25.10 Active 54678532 Had angioplasty 1994, stent in 2001. Last stress test December 2015, next due as per his public area supervisor. Last LVEF 60-65% by echocardiogram in July [...] Problem Diabetes mellitus type 1 E10.9 Active 6638764 9 He is on an insulin pump and this is being managed by the [facility]. His hemoglobin A1c was last 7.4% in July 2019; I cannot find a more recent one. 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 Problem Dysthymia F34.1 Active 73179194 On citalopram instead of Lexapro because of insurance issues--and mirtazepine, added 01/2011. He previously was on Cymbalta as of late 2011 but is no longer on that, as far as I can determine. He seems to be doing fairly well in this regard. Problem Peripheral vascular disease I73.9 Active 4126 86243 Has had femoral- popliteal bypass procedures, and he is seen regularly by his vascular surgeon. An attempt at stopping Plavix for LESI therapy resulted in him having chest pain. Problem Do not resuscitate Z66 Active 328104502 Problem End stage renal disease N18.6 Active 48992725 On dialysis. Problem Hypercholesterolemia E78.00 Active 58673153 Hi s lipids have been reasonably controlled on maximal dose Lipitor therapy when tested in September 2018. He may have had further lipid panels since. I will not change his therapy. A switch to Crestor would risk more proteinuria than he already has. Problem New daily persistent headache G44.52 Active 12 [id number] I will have him get a CRP and sedimentation rate to rule out couple arteritis. We will start Topamax for a couple of weeks to see if this alleviates his headache syndrome. Problem Chronic obstructive pulmonary disease, unspecified J44.9 Active 22877361 He has not had an active exacerbation. Jeremy salinas was seen by a commodities manager in April 2010 at which time he [...] his list. 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 [...] Problem History of GI bleed Z87.19 Active 610705108 He had a significant gastrointestinal bleed with [...] June 2019. Problem Metabolic encephalopathy G93.41 Active 6846981 0 He has an encephalopathy related to hypoxemia from his cardiac arrest in Fall 2017 but is recovering his functional status. Problem History of ventricular fibrillation Z86.79 Acti ve 631639189 He had a cardiac arrest related to ventricular fibrillation in the emergency room in July 2018. He was resuscitated and has a residual encephalopathy. ALLERGIES Allergen (clinical drug ingredient) Drug/Non Drug Allergy do cumented on EMR Reaction Allergy Type Onset Date Status Flexeril causes dizziness Drug Allergy Active tizanidine Tizanidine HCl(NDC Code:[address]-57) Confusion 07/2019 Drug Allergy Active Motrin kidney damage Drug Allergy Active sulfamethoxazole / trimethoprim Bactrim(ND Code:[address]-90) kidney failure Drug Allergy Active Torres Inhibitors kidney failure Non Drug Allergy Active lisinopril kidney failure Drug Allergy Active ENCOUNTERS from 1950 to 2020-09-17 Encounter Location Date Provider Diagnosis [address] [place] [address] 04 Sep, 2020 [facility] [place], operated [facility] Vaccine Route Administration Date Status Zoster 50mcg/0.5mL [...] Orally Twice a day Sep, Active Drisdol 79221 UNIT 1 capsule Orally weekly on Saturday for 90 day(s) Unknown Spironolactone 25 mg 1 tablet Orally twice daily Active Topiramate 25 MG 1 tablet Orally Twice a day for 15 days 1 4 Jun, 2020 Unknown Albuterol Sulfate (2.5 MG/3ML) 0.083% 3 ml as needed I nhalation every 4 hrs as needed for SOB Sep, Active Pen [place] 5/16" 30G X 8 MM as directed [...] 1 tablet Orally once daily Unknown Ergocalciferol 65380 IU as directed Orally Active Ferrous Sulfate [...] Information RESULTS No Results REASON FOR VISIT TCM [facility] D/C 09/11; ESRD on Hemodialysis, Fluid Overload MEDICAL (GENERAL) HISTORY Type Description Date Medical [...] secondary to hypo martinez 08/12-08/27/2018 Hospitalization History [facility]-Hyperglyce mily 09/15-09/17/2018 Hospitalization History [facility]-SOB, Fluid overload, ESRD on peri lysis 03/07-03/08/2020 Goals Section No Information Health Concerns No Information MEDICAL EQUIPMENT No Information MENTAL STATUS No Information FUNCTIONAL STATUS No Information ASSESSMENTS Encounter Date Diagnosis Assessment Notes Treatment Notes Treatm ent Clinical Notes Sep, Other Patient not talita ling to go over medication with me from his previous discharge. Patient states that he is fine and that he refuses to set up an appt at this time. Cecy reports he is in the process of switching MD'S AT THIS TIME. PLAN OF TREATMENT Next Appt Details Provider Name:Mick Rosenberg, 2020-12-21 10 :00:00 AM, [address] [place] [address], [phone], Insurance Providers Payer Name Payer Address Payer Phone Insured Name Patient Relati onship to Insured Coverage Start Date Coverage End Date MEDICARE Part A and B [address] [facility] [phone] CHARLIE NORWOOD [facility] [employer] [facility] CLAIM DIV [address] [place] [phone] CHARLIE NORWOOD self
--- OUTSIDE RECORDS SUMMARY | 2020-09-24 14:03 | CCD ---
Author Author [facility] Organization [facility] Address Unknown Phone Unavailable Care Team Providers Care Patient Financial Services Specialist Name Role Phone Fons, M Asya ANGER CONTROL COUNSELOR Unavailable Unavailable Fons, M Asya ANGER CONTROL COUNSELOR Unavailable Unavailable Fons, M Asya ANGER CONTROL COUNSELOR Unavailable Unavailable Fons, M Asya ANGER CONTROL COUNSELOR Unavailable Unavailable Fons, M Asya ANGER CONTROL COUNSELOR Unavailable Unavailable Fons, M Asya ANGER CONTROL COUNSELOR Unavailable Unavailable Fons, M Asya ANGER CONTROL COUNSELOR Unavailable Unavailable Fons, M Asya ANGER CONTROL COUNSELOR Unavailable Unavailable Fons, M Asya ANGER CONTROL COUNSELOR Unavailable Unavailable Fons, M Asya ANGER CONTROL COUNSELOR Unavailable Unavailable Fons, M Asya ANGER CONTROL COUNSELOR Unavailable Unavailable Fons, M Asya ANGER CONTROL COUNSELOR Unavailable Unavailable Fons, M Asya ANGER CONTROL COUNSELOR Unavailable Unavailable Fons, M Asya ANGER CONTROL COUNSELOR Unavailable Unavailable Fons, M Asya ANGER CONTROL COUNSELOR Unavailable Unavailable Fons, M Asya ANGER CONTROL COUNSELOR Unavailable Unavailable Fons, M Asya ANGER CONTROL COUNSELOR Unavailable Unavailable Fons, M Asya ANGER CONTROL COUNSELOR Unavailable Unavailable Fons, M Asya ANGER CONTROL COUNSELOR Unavailable Unavailable Fons, M Asya ANGER CONTROL COUNSELOR Unavailable Unavailable Fons, M Asya ANGER CONTROL COUNSELOR Unavailable Unavailable Fons, M Asya ANGER CONTROL COUNSELOR Unavailable Unavailable Fons, M Asya ANGER CONTROL COUNSELOR Unavailable Unavailable Fons, M Asya ANGER CONTROL COUNSELOR Unavailable Unavailable Fons, M Asya ANGER CONTROL COUNSELOR Unavailable Unavailable Fons, M Asya ANGER CONTROL COUNSELOR Unavailable Unavailable Fons, M Asya ANGER CONTROL COUNSELOR Unavailable Unavailable Fons, M Asya ANGER CONTROL COUNSELOR Unavailable Unavailable Fons, M Asya ANGER CONTROL COUNSELOR Unavailable Unavailable Fons, M Asya ANGER CONTROL COUNSELOR Unavailable Unavailable Fons, M Asya ANGER CONTROL COUNSELOR Unavailable Unavailable Fons, M Asya ANGER CONTROL COUNSELOR Unavailable Unavailable Fons, M Asya ANGER CONTROL COUNSELOR Unavailable Unavailable Fons, M Asya ANGER CONTROL COUNSELOR Unavailable Unavailable Fons, M Asya ANGER CONTROL COUNSELOR Unavailable Unavailable Fons, M Asya ANGER CONTROL COUNSELOR Unavailable Unavailable Fons, M Asya ANGER CONTROL COUNSELOR Unavailable Unavailable Fons, M Asya ANGER CONTROL COUNSELOR Unavailable Unavailable Fons, M Asya ANGER CONTROL COUNSELOR Unavailable Unavailable Fons, M Asya ANGER CONTROL COUNSELOR Unavailable Unavailable Fons, M Asya ANGER CONTROL COUNSELOR Unavailable Unavailable Fons, M Asya ANGER CONTROL COUNSELOR Unavailable Unavailable Fons, M Asya ANGER CONTROL COUNSELOR Unavailable Unavailable Fons, M Asya ANGER CONTROL COUNSELOR Unavailable Unavailable Fons, M Asya ANGER CONTROL COUNSELOR Unavailable Unavailable Fons, M Asya ANGER CONTROL COUNSELOR Unavailable Unavailable Fons, M Asya ANGER CONTROL COUNSELOR Unavailable Unavailable Fons, M Asya ANGER CONTROL COUNSELOR Unavailable Unavailable Fons, M Asya ANGER CONTROL COUNSELOR Unavailable Unavailable Fons, M Asya ANGER CONTROL COUNSELOR Unavailable Unavailable Fons, M Asya ANGER CONTROL COUNSELOR Unavailable Unavailable Fons, M Asya ANGER CONTROL COUNSELOR Unavailable Unavailable Fons, M Asya ANGER CONTROL COUNSELOR Unavailable Unavailable Fons, M Asya ANGER CONTROL COUNSELOR Unavailable Unavailable Tolu Petersen MD Unavailable Unavailable Tolu Petersen MD Unavailable Unavailable Tolu Petersen MD Unavailable Unavailable Tolu Petersen MD Unavailable Unavailable Tolu Petersen MD Unavailable Unavailable Tolu Petersen MD Unavailable Unavailable Tolu Petersen MD Unavailable Unavailable Tolu Petersen MD Unavailable Unavailable Tolu Petersen MD Unavailable Unavailable Tolu Petersen MD Unavailable Unavailable Tolu Petersen MD Unavailable Unavailable Tolu Petersen MD Unavailable Unavailable Tolu Peteresn MD Unavailable Unavailable Tolu Petersen MD Unavailable Unavailable Tolu Petersen MD Unavailable Unavailable Tolu Petersen MD Unavailable Unavailable Tolu Petersen MD Unavailable Unavailable Tolu Petersen MD Unavailable Unavailable Tolu Petersen MD Unavailable Unavailable Tolu Petersen MD Unavailable Unavailable Tolu Petersen MD Unavailable Unavailable Tolu Petersen MD Unavailable Unavailable Tolu Petersen MD Unavailable Unavailable Tolu Petersen MD Unavailable Unavailable Tolu Petersen MD Unavailable Unavailable Tolu Petersen MD Unavailable Unavailable Tolu Petersen MD Unavailable Unavailable Tolu Petersen MD Unavailable Unavailable Tolu Petersen MD Unavailable Unavailable Slezka, Vojtech MD Unavailable Unavailable Slezka, Vojtech MD Unavailable Unavailable Slezka, Vojtech MD Unavailable Unavailable Slezka, Vojtech MD Unavailable Unavailable Slezka, Vojtech MD Unavailable Unavailable Slezka, Vojtech MD Unavailable Unavailable Slezka, Vojtech MD Unavailable Unavailable Slezka, Vojtech MD Unavailable Unavailable Slezka, Vojtech MD Unavailable Unavailable Slezka, Vojtech MD Unavailable Unavailable Slezka, Vojtech MD Unavailable Unavailable Slezka, Vojtech MD Unavailable Unavailable Slezka, Vojtech MD Unavailable Unavailable Slezka, Vojtech MD Unavailable Unavailable Slezka, Vojtech MD Unavailable Unavailable Slezka, Vojtech MD Unavailable Unavailable Slezka, Vojtech MD Unavailable Unavailable Slezka, Vojtech MD Unavailable Unavailable Slezka, Vojtech MD Unavailable Unavailable Slezka, Vojtech MD Unavailable Unavailable Slezka, Vojtech MD Unavailable Unavailable Slezka, Vojtech MD Unavailable Unavailable Slezka, Vojtech MD Unavailable Unavailable Slezka, Vojtech MD Unavailable Unavailable Slezka, Vojtech MD Unavailable Unavailable Slezka, Vojtech MD Unavailable Unavailable Slezka, Vojtech MD Unavailable Unavailable Slezka, Vojtech MD Unavailable Unavailable Satya KILGORE RN Unavailable Unavailable Neelam RAMOS Unavailable Unavailable Torres, L Chelo RPA Unavailable Unavailable Torres, L Chelo RPA Unavailable Unavailable Torres, L Chelo RPA Unavailable Unavailable Torres, L Chelo RPA Unavailable Unavailable Torres, L Chelo RPA Unavailable Unavailable Torres, L Chelo RPA Unavailable Unavailable Torres, L Chelo RPA Unavailable Unavailable Torres, L Chelo RPA Unavailable Unavailable Torres, L Chelo RPA Unavailable Unavailable Torres, L Chelo RPA Unavailable Unavailable Torres, L Chelo RPA Unavailable Unavailable Torres, L Chelo RPA Unavailable Unavailable Torres, L Chelo RPA Unavailable Unavailable Torres, L Chelo RPA Unavailable Unavailable Torres, L Chelo RPA Unavailable Unavailable Torres, L Chelo RPA Unavailable Unavailable Torres, L Chelo RPA Unavailable Unavailable Torres, L Chelo RPA Unavailable Unavailable Torres, L Chelo RPA Unavailable Unavailable Torres, L Chelo RPA Unavailable Unavailable Torres, L Chelo RPA Unavailable Unavailable Torres, L Chelo RPA Unavailable Unavailable Torres, L Chelo RPA Unavailable Unavailable Torres, L Chelo RPA Unavailable Unavailable Torres, L Chelo RPA Unavailable Unavailable Torres, L Chelo RPA Unavailable Unavailable Torres, L Chelo RPA Unavailable Unavailable Torres, L Chelo RPA Unavailable Unavailable Torres, L Chelo RPA Unavailable Unavailable Torres, L Chelo RPA Unavailable Unavailable Torres, L Chelo RPA Unavailable Unavailable Torres, L Chelo RPA Unavailable Unavailable STEPHON, E CY CORONEL Unavailable Unavailable STEPHON, Jose Luis BENOIT MD Unavailable Unavailable STEPHON, E CY CORONEL Unavailable Unavailable STEPHON, E CY CORONEL Unavailable Unavailable STEPHON, E CY CORONEL Unavailable Unavailable STEPHON, E CY CORONEL Unavailable Unavailable STEPHON, E CY CORONEL Unavailable Unavailable STEPHON, Jose Luis BENOIT MD Unavailable Unavailable STEPHON, Jose Luis BENOIT MD Unavailable Unavailable STEPHON, Jose Luis BENOIT MD Unavailable Unavailable STEPHON, Jose Luis BENOIT MD Unavailable Unavailable STEPHON, E CY CORONEL Unavailable Unavailable STEPHON, Jose Luis BENOIT MD Unavailable Unavailable STEPHON, Jose Luis BENOIT MD Unavailable Unavailable STEPHON, Jose Luis BENOIT MD Unavailable Unavailable STEPHON, Jose Luis BENOIT MD Unavailable Unavailable STEPHON, E CY CORONEL Unavailable Unavailable STEPHON, Jose Luis BENOIT MD Unavailable Unavailable STEPHON, Jose Luis BENOIT MD Unavailable Unavailable STEPHON, Jose Luis BENOIT MD Unavailable Unavailable STEPHON, Jose Luis BENOIT MD Unavailable Unavailable STEPHON, Jose Luis BENOIT MD Unavailable Unavailable STEPHON, Jose Luis BENOIT MD Unavailable Unavailable STEPHON, Jose Luis BENOIT MD Unavailable Unavailable STEPHON, Jose Luis BENOIT MD Unavailable Unavailable STEPHON, Jose Luis BENOIT MD Unavailable Unavailable STEPHON, Jose Luis BENOIT MD Unavailable Unavailable STEPHON, Jose Luis BENOIT MD Unavailable Unavailable STEPHON, E CY CORONEL Unavailable Unavailable STEPHON, Jose Luis BENOIT MD Unavailable Unavailable STEPHON, Jose Luis BENOIT MD Unavailable Unavailable STEPHON, Jose Luis BENOIT MD Unavailable Unavailable STEPHON, Jose Luis BENOIT MD Unavailable Unavailable STEPHON, Jose Luis BENOIT MD Unavailable Unavailable STEPHON, Jose Luis BENOIT MD Unavailable Unavailable STEPHON, Jose Luis BENOIT MD Unavailable Unavailable STEPHON, Jose Luis BENOIT MD Unavailable Unavailable STEPHON, Jose Luis BENOIT MD Unavailable Unavailable STEPHON, E CY CORONEL Unavailable Unavailable STEPHON, E CY CORONEL Unavailable Unavailable STEPHON, E CY CORONEL Unavailable Unavailable STEPHON, E CY CORONEL Unavailable Unavailable STEPHON, E CY CORONEL Unavailable Unavailable STEPHON, Jose Luis BENOIT MD Unavailable Unavailable STEPHON, E CY CORONEL Unavailable Unavailable STEPHON, E CY CORONEL Unavailable Unavailable STEPHON, E CY CORONEL Unavailable Unavailable STEPHON, E CY CORONEL Unavailable Unavailable STEPHON, E CY CORONEL Unavailable Unavailable STEPHON, E CY CORONEL Unavailable Unavailable STEPHON, E CY CORONEL Unavailable Unavailable STEPHON, E CY CORONEL Unavailable Unavailable STEPHON, E CY CORONEL Unavailable Unavailable STEPHON, E CY CORONEL Unavailable Unavailable STEPHON, Jose Luis BENOIT MD Unavailable Unavailable STEPHON, Jose Luis BENOIT MD Unavailable Unavailable STEPHON, E CY CORONEL Unavailable Unavailable STEPHON, E CY CORONEL Unavailable Unavailable STEPHON, E CY CORONEL Unavailable Unavailable STEPHON, E CY CORONEL Unavailable Unavailable STEPHON, E CY CORONEL Unavailable Unavailable STEPHON, E CY CORONEL Unavailable Unavailable STEPHON, E CY CORONEL Unavailable Unavailable STEPHON, E CY CORONEL Unavailable Unavailable STEPHON, E CY CORONEL Unavailable Unavailable STEPHON, Jose Luis BENOIT MD Unavailable Unavailable STEPHON, Jose Luis BENOIT MD Unavailable Unavailable STEPHON, Jose Luis BENOIT MD Unavailable Unavailable STEPHON, E CY CORONEL Unavailable Unavailable STEPHON, Jose Luis BENOIT MD Unavailable Unavailable STEPHON, Jose Luis BENOIT MD Unavailable Unavailable STEPHON, Jose Luis BENOIT MD Unavailable Unavailable STEPHON, E CY CORONEL Unavailable Unavailable STEPHON, E CY CORONEL Unavailable Unavailable STEPHON, E CY CORONEL Unavailable Unavailable STEPHON, E CY CORONEL Unavailable Unavailable STEPHON, E CY CORONEL Unavailable Unavailable STEPHON, Jose Luis BENOIT MD Unavailable Unavailable STEPHON, Jose Luis BENOIT MD Unavailable Unavailable Birchenough, L Veronica PROJECT DEVELOPMENT COORDINATOR Unavailable Unavailable Birchenough, L Veronica PROJECT DEVELOPMENT COORDINATOR Unavailable Unavailable Birchenough, L Veronica PROJECT DEVELOPMENT COORDINATOR Unavailable Unavailable Birchenough, L Veronica PROJECT DEVELOPMENT COORDINATOR Unavailable Unavailable Birchenough, L Veronica PROJECT DEVELOPMENT COORDINATOR Unavailable Unavailable Birchenough, L Veronica PROJECT DEVELOPMENT COORDINATOR Unavailable Unavailable Birchenough, L Veronica PROJECT DEVELOPMENT COORDINATOR Unavailable Unavailable Birchenough, L Veronica PROJECT DEVELOPMENT COORDINATOR Unavailable Unavailable Birchenough, L Veronica PROJECT DEVELOPMENT COORDINATOR Unavailable Unavailable Birchenough, L Veronica PROJECT DEVELOPMENT COORDINATOR Unavailable Unavailable Birchenough, L Veronica PROJECT DEVELOPMENT COORDINATOR Unavailable Unavailable Birchenough, L Veronica PROJECT DEVELOPMENT COORDINATOR Unavailable Unavailable Birchenough, L Veronica PROJECT DEVELOPMENT COORDINATOR Unavailable Unavailable Birchenough, L Veronica PROJECT DEVELOPMENT COORDINATOR Unavailable Unavailable Birchenough, L Veronica PROJECT DEVELOPMENT COORDINATOR Unavailable Unavailable Birchenough, L Veronica PROJECT DEVELOPMENT COORDINATOR Unavailable Unavailable Birchenough, L Veronica PROJECT DEVELOPMENT COORDINATOR Unavailable Unavailable Birchenough, L Veronica PROJECT DEVELOPMENT COORDINATOR Unavailable Unavailable Birchenough, L Veronica PROJECT DEVELOPMENT COORDINATOR Unavailable Unavailable Birchenough, L Veronica PROJECT DEVELOPMENT COORDINATOR Unavailable Unavailable Birchenough, L Veronica PROJECT DEVELOPMENT COORDINATOR Unavailable Unavailable Birchenough, L Veronica PROJECT DEVELOPMENT COORDINATOR Unavailable Unavailable Birchenough, L Veronica PROJECT DEVELOPMENT COORDINATOR Unavailable Unavailable Birchenough, L Veronica PROJECT DEVELOPMENT COORDINATOR Unavailable Unavailable Birchenough, L Veronica PROJECT DEVELOPMENT COORDINATOR Unavailable Unavailable Birchenough, L Veronica PROJECT DEVELOPMENT COORDINATOR Unavailable Unavailable Birchenough, L Veronica PROJECT DEVELOPMENT COORDINATOR Unavailable Unavailable Birchenough, L Veronica PROJECT DEVELOPMENT COORDINATOR Unavailable Unavailable Birchenough, L Veronica PROJECT DEVELOPMENT COORDINATOR Unavailable Unavailable Birchenough, L Veronica PROJECT DEVELOPMENT COORDINATOR Unavailable Unavailable Birchenough, L Veronica PROJECT DEVELOPMENT COORDINATOR Unavailable Unavailable Birchenough, L Veronica PROJECT DEVELOPMENT COORDINATOR Unavailable Unavailable Birchenough, L Veronica PROJECT DEVELOPMENT COORDINATOR Unavailable Unavailable Birchenough, L Veronica PROJECT DEVELOPMENT COORDINATOR Unavailable Unavailable Geloff, A Mirna Unavailable Unavailable Geloff, A Mirna Unavailable Unavailable Geloff, A Mirna Unavailable Unavailable Geloff, A Mirna Unavailable Unavailable Geloff, A Mirna Unavailable Unavailable Geloff, A Mirna Unavailable Unavailable Geloff, A Mirna Unavailable Unavailable Geloff, A Mirna Unavailable Unavailable Re-disclosure Warning The records that you are about to access may contain information from federally-assisted alcohol or drug abuse programs. If such information is present, then the following federally mandated warning applies: This information has been disclosed to you from records protected by federal confidentiality rules (42 CFR part 2). The federal rules prohibit you from making any further disclosure of this information unless further disclosure is expressly permitted by the written consent of the person to whom it pertains or as otherwise permitted by 42 CFR part 2. A general authorization for the release of medical or other information is NOT sufficient for this purpose. The Federal rules restrict any use of the information to criminally investigate or prosecute any alcohol or drug abuse patient.The records that you are about to access may contain highly sensitive health information, the redisclosure of which is protected by Article 27-F of the [facility] Public Health law. If you continue you may have access to information: Regarding HIV / AIDS; Provided by facilities licensed or operated by the [facility] Office of Mental Health; or Provided by the [facility] Office for People With Developmental Disabilities. If such information is present, then the following [facility] mandated warning applies: This information has been disclosed to you from confidential records which are protected by state law. State law prohibits you from making any further disclosure of this information without the specific written consent of the person to whom it pertains, or as otherwise permitted by law. Any unauthorized further disclosure in violation of state law may result in a fine or detention sentence or both. A general authorization for the release of medical or other information is NOT sufficient authorization for further disc losure. Allergies and Adverse Reactions Type Description Substance Reaction Status Data Source(s ) DRUG INGREDI CELECOXIB [facility] Drug allergy Bactrim sulfamethoxazole / trimethoprim kidney failur e Active eCW1 ([facility]) tizanidine Tizanidine HCl tizanidine Confusion 07/2019 Active eC W1 ([facility]) Motrin Motrin Motrin kidney damage Active eCW1 ([facility]) Torres Inhibitors Torres Inhibitors Torres Inhibitors kidney failure Active eCW1 ([facility]) Flexeril Flexeril Flexeril causes dizziness Active eCW1 ([facility]) Motrin Motrin Motrin kidney damage Active eCW1 ([facility]) Torres Inhibitors Torres Inhibitors Torres Inhibitors kidney failure Active eCW1 ([facility]) Flexeril Flexeril Flexeril causes dizziness Active eCW1 ([facility]) Family History Family Member Name Family Member Gender Family Member Status Date o f Status Description Data Source(s) Unknown Male Problem MEDENT ([facility]) Unknown Unknown Problem MEDENT ([facility], ) Unknown Unknown Problem MEDENT ([facility], ) Encounters Encounter Providers Location Date Indications Data Source(s ) Outpatient Attender: CY SZYMANSKI MD 03/22/2021 12:00 :00 AM [facility] Outpatient Attender: Mirna Garsia 11/29/2020 12:00:00 AM [facility] [place] [address] [facility] [address] 09/18/2020 12:00:00 AM EST eCW1 ([facility]) [place] [address] [facility] [address] 09/12/2020 12:00:00 AM EST eCW1 ([facility]) [place] [address] [facility] [address] 08/29/2020 12:00:00 AM EST eCW1 [facility] Outpatient Attender: CY SZYMANSKI MD 08/03/2020 12:00 :00 AM [facility] Outpatient Attender: CY SZYMANSKI MD [id number] 09/27/2019 12:00:00 AM EST - 07/28/2020 10:46:23 AM EST Type 1 diabetes mellitus with hyperglycemia [facility] Type 1 diabetes mellitus with hyperglyce mily [place] [address] [facility] [address] 07/20/2020 12:00:00 AM EST eCW1 ([facility] [place] [address] [facility] [address] 07/20/2020 12:00:00 AM EST eCW1 ([facility]) [place] [address] [facility] [address] 07/18/2020 12:00:00 AM EST eCW1 ([facility]) Office Visit, Est Pt., Level 3 PC [address] [place] [address] 07/11/2020 12:00:00 AM EST eCW1 ([facility]) [place] [address] [facility] [address] 07/01/2020 12:00:00 AM EDT eCW1 ([facility]) [place] [address] [facility] [address] 07/01/2020 12:00:00 AM EDT [facility]CW1 [facility] [place] [address] [facility] [address] 06/30/2020 12:00:00 AM EDT eCW1 ([facility]) Outpatient [address] [facility] [address] 06/22/2020 12:00:00 AM EDT eCW1 ([facility]) [place] [address] [facility] [address] 2020 12:00:00 AM EDT eCW1 ([facility]) [place] [address] [facility] [address] 2020 12:00:00 AM EDT eCW1 ([facility]) [place] [address] [facility] [address] 2020 12:00:00 AM EDT eCW1 ([facility]) Outpatient Attender: NELY KILGORE RN [id number] 05/2020 12:00:00 AM EDT - 05/18/2020 09:36:35 AM EDT 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, bilateral Outpatient 05/13/2020 12:00:00 AM [facility] [place] [address] [facility] [address] 05/04/2020 12:00:00 AM EDT eCW1 ([facility]) Outpatient Attender: Mirna Garisa [id number] 05/02/2020 12:00:00 A M [facility] Outpatient Attender: Chelo Mcgregor/Vikas/Karl/Santos nathan 03/23/2020 09:30:00 AM EDT MEDJEN ([facility]) Outpatient Attender: Tolu INIGUEZ.[email or web address]-JEFFREY 03/09 09:44:35 AM EDT - 03/21/2020 10:16:49 AM EDT [facility] [place] [address] [facility] [address] 03/19/2020 12:00:00 AM EDT eCW1 ([facility]) Outpatient Attender: EDDI RAMOS [id number] 03/02/2020 03:14:[address] 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, bilateral Outpatient Attender: Mirna Garsia 01/26/2020 12:00:00 AM [facility] Outpatient Attender: Asya FERNANDEZ [email or web address].[email or web address] 0 08:07:25 AM EDT - 01/18/2020 11:54:23 AM EDT [facility] [place] [address] [facility] [address] 01/11/2020 12:00:00 AM EDT eCW1 ([facility]) [facility] [place] [address] [facility] [address] 01/08/2020 12:00:00 AM EDT eCW1 ([facility]) Outpatient Referrer: Veronica PATRICK 12/29/2019 07:54 :00 AM EDT [facility] [address] [place] [address], [place] [address] 12/16/2019 12:00:00 AM EDT eCW1 ([facility]) [address] [address] 11/20/2019 12:00:00 AM EDT [facility]CW1 [facility] [address] [address] 11/12/2019 12:00:00 AM EST [facility]CW1 [facility] [address] [address] 11/10/2019 12:00:00 AM EST eCW1 [facility] [address] [address] 11/08/2019 12:00:00 AM EST eCW1 ([facility] [address] [address] 11/06/2019 12:00:00 AM EST eCW1 ([facility] [address] [address] 10/30/2019 12:00:00 AM EST [facility]CW1 [facility] Outpatient Attender: CY SZYMANSKI MD [id number] 10/28/2019 12:00:00 AM EST - 10/28/2019 03:07:04 PM EST Type 1 diabetes mellitus with hyperglycemia [facility] Type 1 diabetes mellitus with hyperglyce mily [address] [address] 09/05/2019 12:00:00 AM EST eCW1 ([facility]) [address] [address] 08/29/2019 12:00:00 AM EST eCW1 ([facility] [address] [address] [address] 08/17/2019 12:00:00 AM EST eCW1 ([facility]) [address] [address] 08/17/2019 12:00:00 AM EST eCW1 ([facility]) [address] [address] 08/14/2019 12:00:00 AM EST eCW1 ([facility]) [address] [address] 08/12/2019 12:00:00 AM EST eCW1 ([facility]) [address] [address] 08/12/2019 12:00:00 AM EST eCW1 ([facility]) [address] [address] 08/03/2019 12:00:00 AM EST eCW1 ([facility]) Outpatient Attender: Mirna Garsia [id number] 07/27/20 12:00:00 AM EST - 07/27/2019 01:07:19 PM EST Type 1 diabetes mellitus with [facility] Type 1 diabetes mellitus with hyperglyce mily [address] [address] 07/27/2019 12:00:00 AM EST eCW1 ([facility]) Immunizations Vaccine Date Status Description Data Source(s) Zoster 50mcg/0.5mL (Shingrix) 08/12/2019 08:06:00 AM EST completed eCW1 ([facility]) Zoster 50mcg/0.5mL (Shingrix) 08/12/2019 08:06:00 AM EST completed eCW1 ([facility]) Zoster 50mcg/0.5mL (Shingrix) 08/12/2019 08:06:00 AM EST completed eCW1 ([facility]) Zoster 50mcg/0.5mL (Shingrix) 08/12/2019 08:06:00 AM EST completed eCW1 ([facility]) Zoster 50mcg/0.5mL (Shingrix) 08/12/2019 08:06:00 AM EST completed eCW1 ([facility]) Zoster 50mcg/0.5mL (Shingrix) 08/12/2019 08:06:00 AM EST completed eCW1 ([facility]) Zoster 50mcg/0.5mL (Shingrix) 08/12/2019 08:06:00 AM EST completed eCW1 ([facility]) Zoster 50mcg/0.5mL (Shingrix) 08/12/2019 08:06:00 AM EST completed eCW1 ([facility]) Zoster 50mcg/0.5mL (Shingrix) 08/12/2019 08:06:00 AM EST completed eCW1 ([facility]) Zoster 50mcg/0.5mL (Shingrix) 08/12/2019 08:06:00 AM EST completed eCW1 ([facility]) Zoster 50mcg/0.5mL (Shingrix) 08/12/2019 08:06:00 AM EST completed eCW1 ([facility]) Zoster 50mcg/0.5mL (Shingrix) 08/12/2019 08:06:00 AM EST completed eCW1 ([facility]) Zoster 50mcg/0.5mL (Shingrix) 08/12/2019 08:06:00 AM EST completed eCW1 ([facility]) Zoster 50mcg/0.5mL (Shingrix) 08/12/2019 08:06:00 AM EST completed eCW1 ([facility]) Zoster 50mcg/0.5mL (Shingrix) 08/12/2019 08:06:00 AM EST completed eCW1 ([facility]) Zoster 50mcg/0.5mL (Shingrix) 08/12/2019 08:06:00 AM EST completed eCW1 ([facility]) Zoster 50mcg/0.5mL (Shingrix) 08/12/2019 08:06:00 AM EST completed eCW1 ([facility]) Medications Medication Brand Name Start Date Product Form Dose Route Admi nistrative Instructions Pharmacy Instructions Status Indications Reaction Description Data Source(s) pantoprazole 40 MG Delayed Release Oral Tablet Pantopr azole Sodium 40 MG Pantoprazole Sodium 40 MG 09/11/2020 12:00:00 AM EST 1.0 {tablet} active Pantoprazole Sodium 40 MG eCW1 ( [facility]) Losartan Potassium 50 MG Oral Tablet Losartan Potassium 50 M G 09/11/2020 12:00:00 AM EST 1.0 {tablet} active Lo sartan Potassium 50 MG eCW1 ([facility]) Labetalol hydrochloride 200 MG Oral Tablet Labetalol H Cl 200 MG Labetalol HCl 200 MG 09/11/2020 12:00:00 AM EST 1.0 {tablet} activ e Labetalol HCl 200 MG eCW1 ([facility]) doxycycline hyclate 100 MG Oral Capsule Doxycycline Hy clate 100 MG Doxycycline Hyclate 100 MG 09/11/2020 12:00:00 AM EST 1.0 {capsule} active Doxycycline Hyclate 100 MG eCW1 ([facility]) pantoprazole 40 MG Delayed Release Oral Tablet Pantopr azole Sodium 40 MG Pantoprazole Sodium 40 MG 09/11/2020 12:00:00 AM EST 1.0 {tablet} active Pantoprazole Sodium 40 MG eCW1 ( [facility]) clopidogrel 75 MG Oral Tablet Clopidogrel Bisulfate 75 MG Clopidogrel Bisulfate 75 MG 09/11/2020 12:00:00 AM EST 1.0 {tablet} activ e Clopidogrel Bisulfate 75 MG eCW1 ([facility]) Calcium 600 600 MG Calcium 600 600 MG 09/11/2020 12:00:00 AM EST active Calcium 600 600 MG eCW1 ([facility]) Citalopram 40 MG Oral Tablet Citalopram Hydrobromide 4 0 MG Citalopram Hydrobromide 40 MG 09/11/2020 12:00:00 AM EST active Citalopram Hydrobromide 40 MG eCW1 ([facility]) Calcitriol 0.82273 MG Oral Capsule Calcitriol 0.25 MCG Calci triol 0.25 MCG 09/11/2020 12:00:00 AM EST 1.0 {capsule} active Calcitriol 0.25 MCG eCW1 ([facility]) Calcium 600 600 MG Calcium 600 600 MG 09/11/2020 12:00:00 AM EST active Calcium 600 600 MG eCW1 ([facility]) Citalopram 40 MG Oral Tablet Citalopram Hydrobromide 4 0 MG Citalopram Hydrobromide 40 MG 09/11/2020 12:00:00 AM EST active Citalopram Hydrobromide 40 MG eCW1 ([facility]) atorvastatin 80 MG Oral Tablet Atorvastatin Calcium 80 MG Atorvastatin Calcium 80 MG 09/11/2020 12:00:00 AM EST 1.0 {tablet} activ e Atorvastatin Calcium 80 MG eCW1 ([facility]) Clonidine Hydrochloride 0.1 MG Oral Tablet Clonidine H Cl 0.1 MG Clonidine HCl 0.1 MG 09/11/2020 12:00:00 AM EST active Clonidine HCl 0.1 MG eCW1 ([facility]) Ferrous Sulfate 325 MG UNK 09/11/2020 12:00:00 AM EST active Ferrous Sulfate 325 MG eCW1 ([facility]) Calcitriol 0.99520 MG Oral Capsule Calcitriol 0.25 MCG Calci triol 0.25 MCG 09/11/2020 12:00:00 AM EST 1.0 {capsule} active Calcitriol 0.25 MCG eCW1 ([facility]) Labetalol hydrochloride 200 MG Oral Tablet Labetalol H Cl 200 MG Labetalol HCl 200 MG 09/11/2020 12:00:00 AM EST 1.0 {tablet} activ e Labetalol HCl 200 MG eCW1 ([facility]) Ipratropium-Albuterol 20-100 MCG/ACT UNK 09/11/2020 12:00: 00 AM EST 1.0 {puff_as_needed} active Ipratropium-Alb uterol 20-100 MCG/ACT eCW1 ([facility]) atorvastatin 80 MG Oral Tablet Atorvastatin Calcium 80 MG Atorvastatin Calcium 80 MG 09/11/2020 12:00:00 AM EST 1.0 {tablet} activ e Atorvastatin Calcium 80 MG eCW1 ([facility]) Losartan Potassium 50 MG Oral Tablet Losartan Potassium 50 M G 09/11/2020 12:00:00 AM EST 1.0 {tablet} active Lo sartan Potassium 50 MG eCW1 ([facility]) Albuterol 0.83 MG/ML Inhalant Solution Albuterol Sulfa te (2.5 MG/3ML) 0.083% Albuterol Sulfate (2.5 MG/3ML) 0.083% 09/11/2020 12:00:00 AM EST 3.0 {ml_as_needed} active Albuterol Sulfate (2.5 MG/3ML) 0.083% eCW1 ([facility]) Mirtazapine 45 MG Disintegrating Oral Tablet [Remeron] Remeron SolTab 45 MG Remeron SolTab 45 MG 09/11/2020 12:00:00 AM EST 1.0 {tablet_on_the_tongue_and_allow_to_dissolve_at_bedtime} active Remeron SolTab 45 MG eCW1 ([facility]) Albuterol 0.83 MG/ML Inhalant Solution Albuterol Sulfa te (2.5 MG/3ML) 0.083% Albuterol Sulfate (2.5 MG/3ML) 0.083% 09/11/2020 12:00:00 AM EST 3.0 {ml_as_needed} active Albuterol Sulfate (2.5 MG/3ML) 0.083% eCW1 ([facility]) Mirtazapine 45 MG Disintegrating Oral Tablet [Remeron] Remeron SolTab 45 MG Remeron SolTab 45 MG 09/11/2020 12:00:00 AM EST 1.0 {tablet_on_the_tongue_and_allow_to_dissolve_at_bedtime} active Remeron SolTab 45 MG eCW1 ([facility]) Clonidine Hydrochloride 0.1 MG Oral Tablet Clonidine H Cl 0.1 MG Clonidine HCl 0.1 MG 09/11/2020 12:00:00 AM EST active Clonidine HCl 0.1 MG eCW1 ([facility]) doxycycline hyclate 100 MG Oral Capsule Doxycycline Hy clate 100 MG Doxycycline Hyclate 100 MG 09/11/2020 12:00:00 AM EST 1.0 {capsule} active Doxycycline Hyclate 100 MG eCW1 ([facility]) Ipratropium-Albuterol 20-100 MCG/ACT UNK 09/11/2020 12:00: 00 AM EST 1.0 {puff_as_needed} active Ipratropium-Alb uterol 20-100 MCG/ACT eCW1 ([facility]) clopidogrel 75 MG Oral Tablet Clopidogrel Bisulfate 75 MG Clopidogrel Bisulfate 75 MG 09/11/2020 12:00:00 AM EST 1.0 {tablet} activ e Clopidogrel Bisulfate 75 MG eCW1 ([facility]) Ferrous Sulfate 325 MG UNK 09/11/2020 12:00:00 AM EST active Ferrous Sulfate 325 MG eCW1 ([facility]) doxycycline hyclate 100 MG Oral Tablet DOXYCYCLINE HYCLATE 1 11/05/2019 12:00:00 AM EST tablet 20 TAKE ONE TABLET BY MOUTH TWI CE A DAY WITH PLENTY OF FLUID TAKE ONE TABLET BY MOUTH TWICE A DAY WITH PLENTY OF FLUID SOLD: 09/04/2020 [facility] Cephalexin 250 MG Oral Capsule [Keflex] Keflex 250 MG Keflex 250 MG 08/29/2020 12:00:00 AM EST 1.0 {capsule} active K eflex 250 MG eCW1 ([facility]) Losartan Potassium 50 MG Oral Tablet Los melissa Potassium 50 MG Oral Tablet (COZAAR) Losartan Potassium 50 MG Oral Tablet (COZAAR) 07/16/20 12:00:00 AM EST Oral active Take by mouth rudi [facility] Insulin Lispro 100 UNT/ML Injectable Sherie ution [Humalog] HumaLOG 100 UNIT/ML Subcutaneous Solution HumaLOG 100 UNIT/ML Subcutaneous Solution 07/11/2020 12:00:00 AM EST active Type 1 diabetes mellitus with hyperglycemia USE WITH INSULIN PUMP- TOTAL DAILY DOSE NOT TO EXCEED 85 UNITS WITH [facility] Type 1 diabetes mellitus with hyperglyce mily topiramate 25 MG Oral Tablet Topiramate 25 MG Topiramate 25 MG 06/22/2020 12:00:00 AM EDT 1.0 {tablet} suspended Topiramate 25 MG eCW1 ([facility]) topiramate 25 MG Oral Tablet Topiramate 25 MG Topiramate 25 MG 06/22/2020 12:00:00 AM EDT 1.0 {tablet} suspended Topiramate 25 MG eCW1 ([facility]) topiramate 25 MG Oral Tablet Topiramate 25 MG Topiramate 25 MG 06/22/2020 12:00:00 AM EDT 1.0 {tablet} active To piramate 25 MG eCW1 ([facility]) topiramate 25 MG Oral Tablet Topiramate 25 MG Topiramate 25 MG 06/22/2020 12:00:00 AM EDT 1.0 {tablet} active To piramate 25 MG eCW1 ([facility]) topiramate 25 MG Oral Tablet Topiramate 25 MG Topiramate 25 MG 06/22/2020 12:00:00 AM EDT 1.0 {tablet} suspended Topiramate 25 MG eCW1 ([facility]) topiramate 25 MG Oral Tablet Topiramate 25 MG Topiramate 25 MG 06/22/2020 12:00:00 AM EDT 1.0 {tablet} suspended Topiramate 25 MG eCW1 ([facility]) topiramate 25 MG Oral Tablet Topiramate 25 MG Topiramate 25 MG 06/22/2020 12:00:00 AM EDT 1.0 {tablet} active To piramate 25 MG eCW1 ([facility]) topiramate 25 MG Oral Tablet Topiramate 25 MG Topiramate 25 MG 06/22/2020 12:00:00 AM EDT 1.0 {tablet} suspended Topiramate 25 MG eCW1 ([facility]) topiramate 25 MG Oral Tablet Topiramate 25 MG Topiramate 25 MG 06/22/2020 12:00:00 AM EDT 1.0 {tablet} active To piramate 25 MG eCW1 ([facility]) topiramate 25 MG Oral Tablet Topiramate 25 MG Topiramate 25 MG 06/22/2020 12:00:00 AM EDT 1.0 {tablet} active To piramate 25 MG eCW1 ([facility]) topiramate 25 MG Oral Tablet Topiramate 25 MG Topiramate 25 MG 06/22/2020 12:00:00 AM EDT 1.0 {tablet} active To piramate 25 MG eCW1 ([facility]) Insulin Lispro 100 UNT/ML Injectable Sherie ution [Humalog] HumaLOG 100 UNIT/ML Subcutaneous Solution HumaLOG 100 UNIT/ML Subcutaneous Solution 03/11/2020 12:00:00 AM EDT active Type 1 diabetes mellitus with hyperglycemia Use as instructed via pump. Max daily dose not to exceed 90 units with priming and titration. E10.65 [facility] Type 1 diabetes mellitus with hyperglyce mily Labetalol hydrochloride 200 MG Oral Tabl et Labetalol HCl 200 MG Oral Tablet (NORMODYNE) Labetalol HCl 200 MG Oral Tablet (NORMODYNE) 0 12:00:00 AM EDT 200 mg active [address] [facility] Dexcom G6 Sensor [id number] 10/28/2019 12:00:00 AM EST 1 {each} Does not apply active 1 each by Does not a pply route every 10 (ten) days [facility] Dexcom G6 Transmitter [id number] 10/28/2019 12:00:00 AM EST 1 {each} Does not apply active 1 each by Does not a pply route every 3 (three) months [facility] Acetaminophen 325 MG / Hydrocodone Dhiraj trate 5 MG Oral Tablet Hydrocodone- Acetaminophen 5-325 MG Hydrocodone-Acetaminophen 5-325 MG 08/17/2019 12:00:00 AM EST active 1 tablet eCW1 ([facility]) Acetaminophen 325 MG / Hydrocodone Dhiraj trate 5 MG Oral Tablet Hydrocodone- Acetaminophen 5-325 MG Hydrocodone-Acetaminophen 5-325 MG 08/17/2019 12:00:00 AM EST 1.0 {tablet} active Hydrocodone -Acetaminophen 5-325 MG eCW1 ([facility]) Acetaminophen 325 MG / Hydrocodone Dhiraj trate 5 MG Oral Tablet Hydrocodone- Acetaminophen 5-325 MG Hydrocodone-Acetaminophen 5-325 MG 08/17/2019 12:00:00 AM EST 1.0 {tablet} active Hydrocodone -Acetaminophen 5-325 MG eCW1 ([facility]) Acetaminophen 325 MG / Hydrocodone Dhiraj trate 5 MG Oral Tablet Hydrocodone- Acetaminophen 5-325 MG Hydrocodone-Acetaminophen 5-325 MG 08/17/2019 12:00:00 AM EST 1.0 {tablet} active Hydrocodone -Acetaminophen 5-325 MG eCW1 ([facility]) Acetaminophen 325 MG / Hydrocodone Dhiraj trate 5 MG Oral Tablet Hydrocodone- Acetaminophen 5-325 MG Hydrocodone-Acetaminophen 5-325 MG 08/17/2019 12:00:00 AM EST 1.0 {tablet} active Hydrocodone -Acetaminophen 5-325 MG eCW1 ([facility]) Acetaminophen 325 MG / Hydrocodone Dhiraj trate 5 MG Oral Tablet Hydrocodone- Acetaminophen 5-325 MG Hydrocodone-Acetaminophen 5-325 MG 08/17/2019 12:00:00 AM EST 1.0 {tablet} active Hydrocodone -Acetaminophen 5-325 MG eCW1 ([facility]) Acetaminophen 325 MG / Hydrocodone Dhiraj trate 5 MG Oral Tablet Hydrocodone- Acetaminophen 5-325 MG Hydrocodone-Acetaminophen 5-325 MG 08/17/2019 12:00:00 AM EST 1.0 {tablet} active Hydrocodone -Acetaminophen 5-325 MG eCW1 ([facility]) Acetaminophen 325 MG / Hydrocodone Dhiraj trate 5 MG Oral Tablet Hydrocodone- Acetaminophen 5-325 MG Hydrocodone-Acetaminophen 5-325 MG 08/17/2019 12:00:00 AM EST 1.0 {tablet} active Hydrocodone -Acetaminophen 5-325 MG eCW1 ([facility]) Acetaminophen 325 MG / Hydrocodone Dhiraj trate 5 MG Oral Tablet Hydrocodone- Acetaminophen 5-325 MG Hydrocodone-Acetaminophen 5-325 MG 08/17/2019 12:00:00 AM EST 1.0 {tablet} active Hydrocodone -Acetaminophen 5-325 MG eCW1 ([facility]) Acetaminophen 325 MG / Hydrocodone Dhiraj trate 5 MG Oral Tablet Hydrocodone- Acetaminophen 5-325 MG Hydrocodone-Acetaminophen 5-325 MG 08/17/2019 12:00:00 AM EST 1.0 {tablet} active Hydrocodone -Acetaminophen 5-325 MG eCW1 ([facility]) Acetaminophen 325 MG / Hydrocodone Dhiraj trate 5 MG Oral Tablet Hydrocodone- Acetaminophen 5-325 MG Hydrocodone-Acetaminophen 5-325 MG 08/17/2019 12:00:00 AM EST 1.0 {tablet} active Hydrocodone -Acetaminophen 5-325 MG eCW1 ([facility]) Acetaminophen 325 MG / Hydrocodone Dhiraj trate 5 MG Oral Tablet Hydrocodone- Acetaminophen 5-325 MG Hydrocodone-Acetaminophen 5-325 MG 08/17/2019 12:00:00 AM EST 1.0 {tablet} active Hydrocodone -Acetaminophen 5-325 MG eCW1 ([facility]) Acetaminophen 325 MG / Hydrocodone Dhiraj trate 5 MG Oral Tablet Hydrocodone- Acetaminophen 5-325 MG Hydrocodone-Acetaminophen 5-325 MG 08/17/2019 12:00:00 AM EST active 1 tablet eCW1 ([facility]) Acetaminophen 325 MG / Hydrocodone Dhiraj trate 5 MG Oral Tablet Hydrocodone- Acetaminophen 5-325 MG Hydrocodone-Acetaminophen 5-325 MG 08/17/2019 12:00:00 AM EST active 1 tablet eCW1 ([facility]) Acetaminophen 325 MG / Hydrocodone Dhiraj trate 5 MG Oral Tablet Hydrocodone- Acetaminophen 5-325 MG Hydrocodone-Acetaminophen 5-325 MG 08/17/2019 12:00:00 AM EST 1.0 {tablet} active Hydrocodone -Acetaminophen 5-325 MG eCW1 ([facility]) Acetaminophen 325 MG / Hydrocodone Dhiraj trate 5 MG Oral Tablet Hydrocodone- Acetaminophen 5-325 MG Hydrocodone-Acetaminophen 5-325 MG 08/17/2019 12:00:00 AM EST 1.0 {tablet} active Hydrocodone -Acetaminophen 5-325 MG eCW1 ([facility]) Acetaminophen 325 MG / Hydrocodone Dhiraj trate 5 MG Oral Tablet Hydrocodone- Acetaminophen 5-325 MG Hydrocodone-Acetaminophen 5-325 MG 08/17/2019 12:00:00 AM EST 1.0 {tablet} active Hydrocodone -Acetaminophen 5-325 MG eCW1 ([facility]) Acetaminophen 325 MG / Hydrocodone Dhiraj trate 5 MG Oral Tablet Hydrocodone- Acetaminophen 5-325 MG Hydrocodone-Acetaminophen 5-325 MG 08/17/2019 12:00:00 AM EST 1.0 {tablet} active Hydrocodone -Acetaminophen 5-325 MG eCW1 ([facility]) Acetaminophen 325 MG / Hydrocodone Dhiraj trate 5 MG Oral Tablet Hydrocodone- Acetaminophen 5-325 MG Hydrocodone-Acetaminophen 5-325 MG 08/17/2019 12:00:00 AM EST 1.0 {tablet} active Hydrocodone -Acetaminophen 5-325 MG eCW1 ([facility]) Acetaminophen 325 MG / Hydrocodone Dhiraj trate 5 MG Oral Tablet Hydrocodone- Acetaminophen 5-325 MG Hydrocodone-Acetaminophen 5-325 MG 08/17/2019 12:00:00 AM EST 1.0 {tablet} active Hydrocodone -Acetaminophen 5-325 MG eCW1 ([facility]) Acetaminophen 325 MG / Hydrocodone Dhiraj trate 5 MG Oral Tablet Hydrocodone- Acetaminophen 5-325 MG Hydrocodone-Acetaminophen 5-325 MG 08/17/2019 12:00:00 AM EST 1.0 {tablet} active Hydrocodone -Acetaminophen 5-325 MG eCW1 ([facility]) Glucagon 3 MG/DOSE Nasal Powder (BAQSIMI ONE PACK) [id number] 07/27/2019 12:00:00 AM EST 1 {each} Nasal active Insulin lo ng-term useType 1 diabetes mellitus with hyperglycemia 1 each by Nasal route as needed [facility] Insulin long-term use Type 1 diabetes mellitus with hyperglyce mily Hydralazine Hydrochloride 50 MG Oral Tab let hydrALAZINE (APRESOLINE) 50 MG tablet hydrALAZINE (APRESOLINE) 50 MG tablet 02/18/2019 12:00:00 AM EDT aborted TK 1 T PO TID [facility] 1.5 ML insulin human, isophane 100 UNT/M L Prefilled Syringe insulin NPH (HUMULIN N,NOVOLIN N) 100 UNIT/ML vial insulin NPH (HUMULIN N,NOVOLIN N) 100 UN IT/ML vial 10/20/2018 12:00:00 AM EST aborted Inject as directed twice daily to MDD [address] [facility] Acetaminophen 325 MG / Hydrocodone Dhiraj trate 5 MG Oral Tablet HYDROcodone- acetaminophen (LORTAB) 5-325 MG per tablet HYDROcodone-acetaminophen (LORTAB) 5- 325 MG per tablet 06/15/2017 12:00:[address] [facility] Continuous Blood Gluc Administrative Staff Supervisor (AgendaSTYLE JINA 14 DAY READER) [place]MARIE [phone] Does not apply aborted Type 1 di abetes mellitus with hyperglycemiaInsulin long-term use by Does not apply route [facility] Type 1 diabetes mellitus with hyperglyce mily Insulin long-term use Continuous Blood Gluc Sensor (FREESTYLE JINA 14 DAY SENSOR) [facility] [place] [phone] Does not apply aborted Type 1 diabetes mellitus with hyperglycemiaInsulin long-term use by Does not apply route [facility] Type 1 diabetes mellitus with hyperglyce mily Insulin long-term use Dexcom G5 Mobile Administrative Staff Supervisor Device [phone] Does no t apply aborted Insulin long-term useType 1 diabetes mellitus with hyperglycemia by Does not apply route [facility] Insulin long-term use Type 1 diabetes mellitus with hyperglyce mily Dexcom G5 Mobile Transmitter [phone] Does not ap ply aborted Insulin long-term useType 1 diabetes mellitus with hyperglycemia by Does not apply route [facility] Insulin long-term use Type 1 diabetes mellitus with hyperglyce mily Insurance Providers Payer name Policy type / Coverage type Policy ID Covered republican ID Covered republican's relationship to oleary Policy Oleary Plan Information MEDICARE [id number] SP [id number] AARP HE[employer] CARE OPTIONS [id number] SP [id number] MEDICARE C [id number] S [id number] AARP O [id number] S [id number] MEDICARE A [id number] Self [id number] AARP U [id number] Self [id number] AARP U [id number] Self [id number] OTHER B TRANSPLANT Self TRANSPLAN T MEDICARE [id number] Swapna [id number] F62 [facility] [id number] Swapna [id number] MEDICARE [id number] SP [id number] F62 MEDICARE [id number] Swapna [id number] A ANSI-Commercial [id number] ANSI-Commercial [id number] ANSI-Medicare Part B [id number] ANSI-Commercial [id number] ANSI-Commercial [id number] ANSI-Medicare Part B [id number] ANSI-Commercial [id number] ANSI-Commercial [id number] ANSI-Medicare Part B [id number] [facility] OPTIONS [id number] SP [id number] ANSI-Commercial [id number] ANSI-Medicare Part B [id number] ANSI-Commercial [id number] ANSI-Medicare Part B [id number] ANSI-Commercial [id number] ANSI-Commercial [id number] [facility] OPTIONS [id number] SP [id number] ANSI-Medicare Part B [id number] ANSI-Commercial [id number] ANSI-Commercial [id number] ANSI-Commercial [id number] ANSI-Medicare Part B [id number] ANSI-Commercial [id number] [facility] OPTIONS [id number] SP [id number] FIRST [employer] -O/P [id number] 18 [id number] MEDICARE -O/P [id number] 18 [id number] ANSI-Commercial [id number] ANSI-Medicare Part B [id number]-mug1-ak8q2861d8m6 ANSI-Commercial w4g79pgi-9184-27fx-29u2-6380117u0u77 b2d39pic-1286-00if-56f4-4497158f9s73 ANSI-Commercial rryb76m9-9zf6-350q-gl4f-dz26e09fi3j7 yqjg08d2-7nd9-489b-hc2y-cr85u37vi8y2 ANSI-Commercial v61w5c19-c8p6-8826-9hjl-2oi6ry423imf a98e3c15-w8d3-3247-1qgn-3rd3sz781aqp ANSI-Medicare Part B e8x883a5-889d-2877-r560-099m6070807q d5k198i0-022k-2187-z908-468a6362292n ANSI-Commercial 466dod81-9x21-5dtv-861x-h900j6075rr8 544yjr43-6p51-0mdn-921j-r342j3458ge5 ANSI-Medicare Part B 0xes489t-lcfd-6779-y6wu-7i63358724v4 1rbm064d-gxai-8240-a0ok-0i94920640v5 ANSI-Commercial xd29vd72-d595-2909-t96v-42i55qy5m490 ps33rt21-j265-7999-j13u-00e52qd0t849 ANSI-Commercial 5783l99s-3818-819n-95xh-j8yjo5g047j8 4875h30p-3486-405m-30kx-g3ekw5r745f1 ANSI-Medicare Part B a3eq72i6-8jd5-2uvj-x04p-eo9v98463d3w g4tm78x7-3zg1-7rmt-v76o-nt1o18880x9j ANSI-Commercial 1m88h1l7-276t-13v0-3638-3987cw5666wn 7k89b6c7-035z-84u3-9873-7311st8312yp ANSI-Commercial 841vfp2r-6ps3-1959-l5qf-pnq92v6p561o 241fcd7k-5rp0-3229-b1ce-kgz94f2f367r ANSI-Commercial 05h7u074-8941-4058-dj02-5u1cmys51bwc 39o7r117-8893-5147-cs82-7c1gntu14mnt ANSI-Medicare Part B [id number]-52p1-m133-172b4ay61h9d 716o3626-152w-60o8-r814-306s2qn88t4z ANSI-Medicare Part B 25904d9d-7c3g-2375-51lc-072ex4389r66 28949o8u-6s4b-6193-24aj-747zs9662y08 ANSI-Commercial 21v9ff47-0416-4ue7-96ay-9bxz45z85926 45t5fm20-4754-2ut7-91ch-2inp57e29507 ANSI-Commercial 78e7u8a4-wrb3-3878-rj07-23w793s2k373 37q6f3o1-bgt3-5024-ub65-49g057b3j384 ANSI-Commercial [id number] ANSI-Medicare Part B [id number] ANSI-Commercial [id number] [facility] [id number] [place] [facility] PART [facility] C [id number] S [id number] ANSI-Medicare Part B [id number] ANSI-Commercial [id number] ANSI-Commercial [id number] ANSI-Commercial [id number] ANSI-Commercial [id number] ANSI-Medicare Part B [id number] ANSI-Commercial [id number] ANSI-Medicare Part B [id number] ANSI-Commercial [id number] ANSI-Medicare Part B [id number] ANSI-Commercial [id number] ANSI-Commercial [id number] ANSI-Medicare Part B [id number] ANSI-Commercial [id number] ANSI-Commercial [id number] [facility] [facility] OPTIONS [id number] SP [id number] MEDICARE [id number] SP [id number] A MEDICARE [id number] SP [id number] A [facility] Medigap Part B [id number] Self [id number] Medicare [facility] Medicare Primary [id number] Self [id number] AARP O [id number] S [id number] MEDICARE C [id number] S [id number] A MEDICARE A [id number] Self [id number] A Bshmo ZFC,Yot,ZFH,Ymb,ZFP Health Maintenance Organization (HMO) [facility] [id number] Family Dependent [id number] [facility] Medigap Part B [id number] Self [id number] Medicare [facility] Medicare Primary [id number] Self [id number] Bshmo ZFC,Yot,ZFH,Ymb,ZFP Health Maintenance Organization (HMO) [id number] Family Dependent [id number] [facility] Medigap Part B [id number] Self [id number] Medicare [facility] Medicare Primary [id number] Self [id number] AARP HEALTH CARE OPTIONS [id number] SP [id number] [facility] Medigap Part B Self Medicare [facility] Medicare Primary Self HUMANA HMO [id number] SP [id number] FIRST UNITED GABONESE [id number] SP [id number] HUMANA H [id number] Self [id number] HUMANA PPO [id number] SP [id number] Humana Medigap Part B Self First United [place] Lif Medigap Part B Self Medicare [facility] Medicare Primary Self BC/BS Of [place] Commercial Family Depende nt FIRST UNITED GABONESE LIFE U [id number] Self [id number] BLUE CROSS BLUE SHIELD-O/P [id number] 01 [id number] FIRST UNITED GABONESE S [id number] S [id number] EXCELLUS BCBS [id number] Spo GBH [id number] BCBS GENERIC C [id number] Spouse [id number] BCBS [place] 121/621 [id number] BCBS GENERIC C [id number] Spouse [id number] EXCELLUS BCBS P [id number] P GBH [id number] BC [place] O [id number] U [id number] A MEDICARE OUTPATIENT M [id number] S [id number] BC [place] O [id number] U [id number] MEDICARE OUTPATIENT M [id number] S [id number] BCBS HMO [place] O [id number] S [id number] A Problems, Conditions, and Diagnoses Code Display Name Description Problem Type Effective Dates Data Source(s) J44.1 691739310 COPD exacerbation Problem 07/11/2020 12:00:0 0 AM EST eCW1 ([facility]) G44.52 [id number] New daily persistent headache Problem 06/22/2020 12:00:00 AM EDT eCW1 ([facility]) N18.4 Chronic kidney disease stage 4 Chronic kidney di sease, stage 4 (severe) Problem 08/12/2019 12:00:00 AM EST eCW1 ([facility]) I10 Hypertension Hypertension Problem 08/12/2019 12:00:00 A M EST eCW1 ([facility]) E10.65 Type 1 diabetes mellitus with hyperglyce mily Type 1 diabetes mellitus with hyperglycemia Diagnosis 06/16/2020 10:11:57 AM EDT [facility] I73.9 Peripheral vascular disease, unspecified Peripheral vascular disease, unspecified Diagnosis 03/21/2020 09:44:35 AM EDT [facility] R06.02 Shortness of breath Shortness of breath Diagnosis 0 03/21/2020 09:44:35 AM EDT [facility] I10 Essential (primary) hypertension Essential (primary) h ypertension Diagnosis 03/21/2020 09:44:35 AM EDT [facility] E78.00 Pure hypercholesterolemia, unspecified P ure hypercholesterolemia, unspecified Diagnosis 03/21/2020 09:44:35 AM EDT [facility] N18.6 End stage renal disease End stage renal disease Diagno sis 03/21/2020 09:44:35 AM EDT [facility] Z98.61 Coronary angioplasty status Coronary angioplasty statu s Diagnosis 03/21/2020 09:44:35 AM EDT [facility] Z99.2 Dependence on renal dialysis Dependence on renal dialy sis Diagnosis 01/18/2020 08:07:25 AM EDT [facility] E10.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 Type 1 diabetes mellitus with diabetic c Diagnosis 01/18/2020 08:07:25 AM EDT [facility] D63.1 Anemia in chronic kidney disease Anemia in chron ic kidney disease Diagnosis 01/18/2020 08:07:25 AM EDT [facility] Surgeries/Procedures Procedure Description Date Indications Data Source(s) Duplex Scan Extracranial Arteries, Follow-Up Or Limited Stud y 02/10/2020 12:00:00 AM EDT [facility] ([facility]) DUP-SCAN LXTR ART/ARTL BPGS UNI/LMTD STUDY 02/10/2020 12:00:00 AM EDT [facility] ([facility]) DUPLEX SCAN EXTRACRANIAL ART COMPL BI STUDY 02/10/2020 12:00:00 AM EDT [facility] ([facility]) DUP-SCAN LXTR ART/ARTL BPGS COMPL BI STUDY 02/10/2020 12:00:00 AM EDT [facility] ([facility]) Annual wellness visit, includes a person alized prevention plan of service (pps), subsequent visit 10/30/2019 12:00:00 AM EST eCW 1 ([facility]) Office Visit, Est Pt., Level 4 PC 10/30/2019 12:00:00 AM EST eCW1 ([facility]) Office Visit, Est Pt., Level 2 FC 10/30/2019 12:00:00 AM EST eCW1 ([facility]) GLUCOSE QUANTITATIVE BLOOD XCPT REAGENT STRIP POCT GLUCOSE, DOC KED Routine 10/28/2019 1:50 PM EST 10/28/2019 06:50:00 PM [facility] HEMOGLOBIN GLYCOSYLATED A1C POCT HEMOGLOBIN A1C, DOCKED Routine 10/28/2019 1:43 PM EST 10/28/2019 06:43:00 PM EST [facility] POCT GLUCOSE, DOCKED POCT GLUCOSE, DOCKED Routine 07/27/2019 11:55 AM EST Type 1 diabetes mellitus with hyperglycemia Insulin long-term use 07/27/2019 04:55:00 PM EST Insulin katia g-term useType 1 diabetes mellitus with hyperglycemia [facility] Insulin long-term use Type 1 diabetes mellitus with hyperglyce mily POCT HEMOGLOBIN A1C, DOCKED POCT HEMOGLOBIN A1C, DOCKED Routine 07/27/2019 11:48 AM EST Type 1 diabetes mellitus with hyperglycemia Insulin long-term use 07/27/2019 04:48:00 PM EST Insulin katia g-term useType 1 diabetes mellitus with hyperglycemia [facility] Insulin long-term use Type 1 diabetes mellitus with hyperglyce mily Results ID Date Data Source [id number] 09/10/2020 05:41:00 AM EST [facility] Name Value Range Interpretation Code Description Data Mary rce(s) Supporting Document(s) SARS-CoV-2 (COVID 19) [facility] This lab was ordered by [facility] a nd reported by [facility]. ID Date Data Source [id number] 09/03/2020 03:34:00 AM EST [facility] Name Value Range Interpretation Code Description Data Mary rce(s) Supporting Document(s) SARS coronavirus 2 RNA [Presence] in Res piratory specimen by GABRIELLA with probe detection [facility] This lab was ordered by [facility] a nd reported by [facility]. ID Date Data Source [id number] 08/02/2020 12:54:49 AM EST [facility] Name Value Range Interpretation Code Description Data Mary rce(s) Supporting Document(s) Progress Note [facility] GPAPGd8mYvTIZeBa07/CBPulYNIgl9RhDWpnNKr5BDmsCECuW4JaCLC0mI0sQCG4JYiXRiHlJyFyMZV9 lbm [file] D+A/4EGq7O+qfz7xCEZ04W40SUYq/TiID+CD+BA+Isaías+JF4grppF/TpXpY/gN/CY+gugiIB8Si0Dz2fvc 2/pYUy5J9YR7Hs/janett/C7+Bw+ysrPxQH9Dg+gOvZF/B4B0RD5kwrYkkX/bWqxIPvLxtqoLmrGs3VMXI9J [file] AgICAgICAgICAgICAgICAgICAgICAgICAgICAgICAgICAgICAgICAgICAgICAgICAgICAgICAgICAgIC AgICAgICAgICAgICAgICAgICAgICAgICAgICAgICAg ICAgDQogICAgICAgICAgICAgICAgICAgICAgICAgICAgICAgICAgICAgICAgICAgICAgICAgICAgICAg ICAgICAgICAgICAgICAgICAgICAgICAgICAgICAgICAgICAgICAgICAgICAgDQogICAgICAgICAgICAg ICAgICAgICAgICAgICAgICAgICAgICAgICAgICAgIC AgICAgICAgICAgICAgICAgICAgICAgICAgICAgICAgICAgICAgICAgICAgICAgICAgICAgICAgDQogIC AgICAgICAgICAgICAgICAgICAgICAgICAgICAgICAgICAgICAgICAgICAgICAgICAgICAgICAgICAgIC AgICAgICAgICAgICAgICAgICAgICAgICAgICAgICAg ICAgICAgDQogICAgICAgICAgICAgICAgICAgICAgICAgICAgICAgICAgICAgICAgICAgICAgICAgICAg ICAgICAgICAgICAgICAgICAgICAgICAgICAgICAgICAgICAgICAgICAgICAgICAgDQogICAgICAgICAg ICAgICAgICAgICAgICAgICAgICAgICAgICAgICAgIC AgICAgICAgICAgICAgICAgICAgICAgICAgICAgICAgICAgICAgICAgICAgICAgICAgICAgICAgICAgDQ ogICAgICAgICAgICAgICAgICAgICAgICAgICAgICAgICAgICAgICAgICAgICAgICAgICAgICAgICAgIC AgICAgICAgICAgICAgICAgICAgICAgICAgICAgICAg ICAgICAgICAgDQogICAgICAgICAgICAgICAgICAgICAgICAgICAgICAgICAgICAgICAgICAgICAgICAg ICAgICAgICAgICAgICAgICAgICAgICAgICAgICAgICAgICAgICAgICAgICAgICAgICAgDQogICAgICAg ICAgICAgICAgICAgICAgICAgICAgICAgICAgICAgIC AgICAgICAgICAgICAgICAgICAgICAgICAgICAgICAgICAgICAgICAgICAgICAgICAgICAgICAgICAgIC AgDQogICAgICAgICAgICAgICAgICAgICAgICAgICAgICAgICAgICAgICAgICAgICAgICAgICAgICAgIC AgICAgICAgICAgICAgICAgICAgICAgICAgICAgICAg NGSoVWMaVJThIJVzLKd2R2ztVZIbQIEhKZ8wNLs3Gw1+KUxZPqZqWEC1crDdlT4RKD3ay1OiYImaKAQr n5MxTTb3JI0VRVQuSRneJC8ZNPvkwj3XAWMoXHSbbZAEp2ypVePbXBI1GAXfKealKI3JRDUoR4uezoGw IDUgMCBSIDcgMCBSIDkgMCBSIDExIDAgUiBdDQogIC 1Od4WmaTE3HKx+Yd0XRV6qw9QhNOkwOkZeEB9azo1DJNuTRxBkR8RtzoA8LPH5XYVcHj6TIJRaMSBtxP JjLFZtCKJSPlQcK1HqcO10EIGBJo2+GSzqenAoZrlKOdX3ZFUhm9WrJGr2HZ5UIVSgOGs1rUYxWVEfN8 Sfn2LhYy66RQOrQmlzHo1mMAE8ctXMIIl8pKGxHVHz virfWBGjUIQtGXFpULuiSnSkXQOuFZsmJPHACZbOKwBhY2Jlt3OxLjY3UCGsViCjVUjfVDKhVnS5JW36 fUlxSF6NGMUmBKZeMJ07QANzNTDqPt4EMs9PKzTrKQ5atz4QXzEzZVJcFwtTAsy6MVnoIH8SfVAyQ1Pf kDUpc0kDEkYkZ9SPXCMrXGFhEe2FOUGiUbBiMQLgTC raQJ7iIIDeMEEJrXvgueD4CM4FRL0wwfQmAG9LYkHpAs2nMm8OUnYjU6KfF7OlSEGmIJQDJAtvMC3RYZ dsIU9wTJ9Rn2LMyPBknO8dot4TIZLvZAHfXtubea9NEtjmF6R0nPahRFWdNbJoSFZJGCxxHG5IWMOhDA V6JFAzLkFtPOGLZvZrR67aJZ0WL2Ivs59qEhD3VTDq LyLqICymQJ94rXfkzdEqrWOblIsxEG2XUg0+DQplbmRvYmoNCnhyZWYNCjAgMzYNCjAwMDAwMDAwMDAg AlO4UoPdBj9LEZZzJZXsTAYqYaYsUPDwCTKoIRccAPCwJGA9ADw7QVZcMKXsBH9UWuFpRBOaOdizYyCg GESpHVIukb1GXPNlYPAzOOI2IxYrZERfPGZaVQlcPE AsYMT6ORTaDDIbICJhNX2FGvJyTJJnYCRuEQGlVDXzZMObvu9BDNIlAHWjWnr6TEKlGFOiYTZuCDcpAH CdMEK5EZZ3AQDmCSIlTT4BAtOlTRQrOSXwFqRzUODlEWNrki6KJEIxPKSoYOL6TMPpDSAuZZDrHJxdPT ZxEMLjVeL6YKDnERSvNM6VHfRfIFAxAJL4MQYfMKPt ZVFjcu4IZDOrXMYcMVT2DrIhHOUxJWWxMWtjHUAcAHA7RqH7VGPnTHByIE4KLfLzOFMpARQ7CEVjKQYg SCPjzk2UJQAyAVJxHGaaOYXuAFVeAHGpQRjtQDAuTCQ5DFSzQUXqPDWmID8YEmEgSKHqJAVhLUNrHZEl BEHjff5MSQTvMZVzEqS2BiUcCJVgILLnJGsxCNAdDM J2VHgnBAOqGXJqSJ7CXoHaFJFpYoghCFIzWVVmTSKwpi7OZJPoBSJmSXPvVQPsEFRxREBiIAahZCWsMR P7PSA7AZXtAHYiKP8HQfBtGJOmJzt3AIDwMUDaKPCgkq3KGPJoPYEvQMEhJIIrFUDlMVVlMKxmQAZpRS D9Puk6BGUwQCIoUX5YJbZkWISxNjM2VxUtBUHnJSOo js5EIFIgELTnGNi6JwHuAAHmQVDtFOmqCNMxFHL7IUU3WJTeZXPiEE0QDsFmYCNiRfJ6MNAoQWQvIRPb mf8IRFRmQGHaWDG0MvHkUUPuROHrNHxdOPDxFHD2FKm9BUEyINTyYP4JIxPrPMKlEzh5SJXbGUPbODGi yd2LAUWmHCRgDhHsJsJrDMWgZSKnZYtdMNTrNYM5Kn M3UGAwWQHoBP7ARkPgNWxnAFFHAyi6YLelR1a7MIWmAr5HM9Jik7WpGjVwXJRCTAejNI2jkfWwEQVdPs 9OW9pJDrk0XHJsMMYeSKJaFZm6P6OhJJP9XzOjPTocQMcdNBNeQx6hIWo2JUS7GOKhGiMyNNIzPLVkQG S3AhDrJRVmBQV0LDIdZwJkKM1RXx5ZYqC9ZZB4gFZfWi6ZAfv3KAXIRyNwZW2LPJw= ID Date Data Source [id number] 07/28/2020 07:05:21 PM [facility] Name Value Range Interpretation Code Description Data Mary rce(s) Supporting Document(s) Progress Note [facility] EVFADk8aWzAAOdGq95/WIAdgENQvk7YjFGqzCGb8VUxjRVBgT9FcBDR6hY3vRPY4YOvROeHhZmNySSZ4 lbm [file] +pw1a1HnRzYAYn/I3yn6e/maoq/RIqWnF7kYbr++Glost Kiln Operator [file] FJbzGkDiUCD8IBTbJCQeZOQ1XiEhIW8YTo1YLaL6FFW0mKUqOc8OFsKsKOyRNuPyLH2ZVHg= ID Date Data Source [id number] 05/24/2020 02:45:14 PM EDT [facility] Name Value Range Interpretation Code Description Data Mary rce(s) Supporting Document(s) Progress Note [facility] QBFFZa1fQfENHhGe82/LXEbrHZGce3WaRJxkPEv2VIehXBMoE9GbPIC2cB6xQLV5PTwQEnAzYvWyDPT5 lbm [file] nXYSJP3HABSjVJqMfYwWjqq4A1VpTG2PTtmf// [file] ID Date Data Source [id number] 05/18/2020 01:45:26 PM EDT [facility] Name Value Range Interpretation Code Description Data Mary rce(s) Supporting Document(s) Progress Note [facility] ZAHPNo6gMdQQKkXq22/WORljLUFwj2QbHUicQSh1IOoiHYGpP8EjLPO1hO5aIAO0DRjJVdJsDcShHIY9 lbm [file] ID Date Data Source [id number] 05/18/2020 09:25:12 AM EDT [facility] Name Value Range Interpretation Code Description Data Mary rce(s) Supporting Document(s) [facility]GQCqyQPVbr2BbBPojSRs5PQgzEUGgU9HjVNB5tB8rYVG1EQnUQoRzUtYeXWK4 lbm [file] JXmaKNYORo9F ID Date Data Source [id number] 05/02/2020 01:49:37 PM EDT [facility] Name Value Range Interpretation Code Description Data Mary rce(s) Supporting Document(s) Progress Note [facility] KBUSUy5uPsAYPjIs18/IWTelYLQwm5JlAWekDHn2BGhuCRJqZ9EmXOB4tV7kWWQ3DPbYNqXsMcNfBPO2 lbm [file] UbDGs2Oml8Xv3XCFZRU1TFWf== ID Date Data Source [id number] 03/03/2020 05:42:09 PM EDT [facility] Name Value Range Interpretation Code Description Data Mary rce(s) Supporting Document(s) Progress Note [facility] PECUCo8eEbDEIeLq05/DTZiyVFRqz0XfDFfpBCy1RGrbWGLoH5KxYHN2aL6cDKG1HLyOFoApWbLcWqN0 lbm [file] Isaías/i55pg4dvlGyqP2o5WwX+uxnn+I1siPro2g831NTJ1A41z3tusQ55kN1fH99ftp0H5IF8AdwwaK60m [file] ApssN9viDtVIvrDWH0EF8VKEMYV4GBQx== ID Date Data Source [id number] 03/02/2020 03:14:11 PM EDT [facility] Name Value Range Interpretation Code Description Data Mary rce(s) Supporting Document(s) Progress Note [facility] KQHVRi3sYoZOOyWl83/NLKdgEOSzs8NeRLunMVc2GUamYLRvJ0ToPEN9jF3bECB3KLaYNnAvAkVbDcX9 lbm [file] A5ZQtdHBWlSKYkC8UsIiW8JbFzDxZgQY3XAy4GXzG8HEK4kGVgAf2HCpX0PHtSOxJiZF6DQKb= ID Date Data Source [id number] 02/10/2020 12:07:00 PM EDT [facility] ([facility]) Name Value Range Interpretation Code Description Data Mary rce(s) Supporting Document(s) Carotid Ultrasound Bilateral Laboratory test result [facility] ([facility]) ID Date Data Source [id number] 02/10/2020 12:06:00 PM EDT [facility] ([facility]) Name Value Range Interpretation Code Description Data Mary rce(s) Supporting Document(s) Bypass Graft Ultrasound Lower Extremity Bilateral Laboratory test res ult [facility] ([facility]) ID Date Data Source [id number] 01/27/2020 02:30:18 PM EDT [facility] Name Value Range Interpretation Code Description Data Mary rce(s) Supporting Document(s) Progress Note [facility] KBRXEg9lKsZEXkIy08/NNUjbWZYbd4AcYTcyKTe9EHppOBNtU5JoKSD1wH4hUDL0OSmJEvMrSxTsBWLn lbm [file] fxQqea8sOS4mB79fiLmWmMZhhsfqdOnHwIJSjmu2AAa14Oe9u4NVx+5d9qu7vnxr2buAZXSvhtH++ROBE edckfe+h2q25Rg823mqHsxm0pIDU/M1GUsx0X7QVbeW5hfGAubkRer2s+Pepx0Fe/+4NNku+W+IHt6Jq c2kH7qkjTN8cbscNHabDPB1ohmjqInu/ZzFH5Ayr+5 C6lubzlfh/Gt+pMW8R6e8apn0hk39N0eERnZ+rX+/tDawJuLrUM98XkGw/9d7Vwsmiv0Jmc669gF8937 I+/0mguq8m/17w8+RfZu7mkib0xm8wvNu84MXTuxwHnFjKnQLCluv8VBnI6du5/wabLdcl+LIA2MU0+O AkrtO3dhTs5v51IsnR3fD677IWPBpA/07xE+TbavuS /Lvt7JspP9FvEeoQMY9akefOXxzUFY7rrrkuCgP+umW8rruAgpE3KFi+P7R6OT2aRtks4vqAYpxVHtrK u/G22a3Ef2+4NPk+2W+0Lz4DshTb0rPLeAZlPpbbhqTGRnJKdbfa8CAvP3tb91jqhXsfc3Cy6iC0xcx5 //Z6lENq1VWdYhFQB9kqCmuQ8BFI0dv1YvVExoIAHe LX5ruf9FNNX5RI0CIGUfLX1OeQFsO0BpC3HLPjHrAHCsWGEaGM48UWWeQIEUQVkcUJUcS1Eqj279miCo laYnRRDxXq4JVSCmBV2NEGHbEPAbjVIoDTRxENXtQdT8EBNmASqxMFKuL2GicdWwcbVuIZF5MRStAm1H OTOwNV2Hry02gYW2JWNaVqNlLLIkejZdARIhddJ2AP 4OKaUgMJA9vAJjJzaKGA7VPGVtbWXiLU3YDRGgnCErGW4+DQogID4+HSskmgYkVxuGTlRqDHGak5XfEJ rbPVw5Q9EimVArsdPaEaywbVBTBAJpOHAzN0cwspy1uYXrKMTfIj2AUiTit5BjZDUvJLjRpnUx805pNw J9X2D/jC5jPZ9jcyJFDRUijlNZC0+KeVz2CeVJS1A4 0lgjOZm/F8S16EJWdR5MYsKH3aUdscNFPE4+Iu1lRqzhwX+h4dFNjcMS5G/XzMtIza/UTILITY SERVICE WORKER/+hjqfFkTvt 2TUpLokU68c4effe73XCF0pj7/ez+ZfFpfrPZLq9+n6nlktaxCpyAj59s/9ct3q5XDnc4//9h8UgxfR9 2Qa98ocG8AiHXKEodCdNMVvk/KHFLE3YxgjOEBxAoJ kYDFs0QpiKno8+aa2ans1jennbxoMmiQdcyQuwVxQzKKv42Rho61xmjJuilJDOgOsNdgpKcxrK524Bnv l4NniFtX4dAAs75YpmBNb41qxK/VQKQMHht0yGqMGnF6DDpVlwBQlSv7++0/arqXp/dqeHQZaErtsrjS 2UIHgYZrEDLyWBo/jcYxYpceweshUBry1kCPyIUvE+ 3ToED7Kh8fQmDGZ7CVNZAgKsaYdWKSHjBtfPkYykzZtflNZwvbV+rgM0opENRfi+jELV5HBS1dWRFezr TVvOm9hZU3aKveeVLKqZipcZetLbqpxmD1l9Tc42fmaCbOKN5ad+5+KjsFKyS5+TDUBkmLmUDnwp2J31 MkVLpoHBTmuVDHkkelWq3wJDt7Jfm8lvIqzTc+vjRR 8Ha2lPR2ixHFVlXQvopMFpukxVYzZClGoK3wPIVk99rLTRLO0OjZfzJkLboEaATawAOEb8PaK54AVR6h kEvbutf3rW8nH2cYKwbRlDYIz8IvP57SSCr83ucwaR1IldYs5OlT+RP4K2kKa+4hWX4Owsaf8wqadg29 0mNv8noFybwJ3kNXq0Q8wD6Nw/+vqm902syaw9tsi+ m8Clz3i87R9DjZy1LsGe+6zyggrb0YdGFuddmz++Glost Kiln Operator+ezI+EUKHtu43b3f1dLDbhO2JXBRcO+GeqsZkW DSfLoWj8suWmoJ6rTK4Ir+ZYvR+05U4wcEEtu+R4wWWJY7tMEV4r3cyXZuSXkjQmn6L54NWPiRqv8NiO 9sYzWzaNzJ0m5vLercQayI3B4O27hqZYvkpq4xLY6+ BtrlSBlxob0UC0oe9bI/Zl2AFDW8olxU97Eq9DRYe7buwTm67Tg2XMBMafPGI9bAnd0sxnVqH9u+rgPc 0vZjGdLQE1LP0ngxaAQCvK2bAacuvzdKUV5V78kpCEkvd/1nUoRshSii2/cHzwGNFSY2L68iPE7uSjH5 Qqf93Vc4+LdNzB5i2L3IH57rh6I1LC13zp0vb6n8VQ [file] ICAgICAgICAgICAgICAgICAgICAgICAgICAgICAgICAgICAgICAgICAgICAgICAgICAgICAgICAgICAg ICAgICAgICAgICAgICAgICAgICAgICAgICANCiAgIC AgICAgICAgICAgICAgICAgICAgICAgICAgICAgICAgICAgICAgICAgICAgICAgICAgICAgICAgICAgIC AgICAgICAgICAgICAgICAgICAgICAgICAgICAgICAgICAgICANCiAgICAgICAgICAgICAgICAgICAgIC AgICAgICAgICAgICAgICAgICAgICAgICAgICAgICAg ICAgICAgICAgICAgICAgICAgICAgICAgICAgICAgICAgICAgICAgICAgICAgICANCiAgICAgICAgICAg ICAgICAgICAgICAgICAgICAgICAgICAgICAgICAgICAgICAgICAgICAgICAgICAgICAgICAgICAgICAg ICAgICAgICAgICAgICAgICAgICAgICAgICAgICANCi AgICAgICAgICAgICAgICAgICAgICAgICAgICAgICAgICAgICAgICAgICAgICAgICAgICAgICAgICAgIC AgICAgICAgICAgICAgICAgICAgICAgICAgICAgICAgICAgICAgICANCiAgICAgICAgICAgICAgICAgIC AgICAgICAgICAgICAgICAgICAgICAgICAgICAgICAg ICAgICAgICAgICAgICAgICAgICAgICAgICAgICAgICAgICAgICAgICAgICAgICAgICANCiAgICAgICAg ICAgICAgICAgICAgICAgICAgICAgICAgICAgICAgICAgICAgICAgICAgICAgICAgICAgICAgICAgICAg ICAgICAgICAgICAgICAgICAgICAgICAgICAgICAgIC ANCiAgICAgICAgICAgICAgICAgICAgICAgICAgICAgICAgICAgICAgICAgICAgICAgICAgICAgICAgIC AgICAgICAgICAgICAgICAgICAgICAgICAgICAgICAgICAgICAgICAgICANCiAgICAgICAgICAgICAgIC AgICAgICAgICAgICAgICAgICAgICAgICAgICAgICAg ICAgICAgICAgICAgICAgICAgICAgICAgICAgICAgICAgICAgICAgICAgICAgICAgICAgICANCiAgICAg ICAgICAgICAgICAgICAgICAgICAgICAgICAgICAgICAgICAgICAgICAgICAgICAgICAgICAgICAgICAg ICAgICAgICAgICAgICAgICAgICAgICAgICAgICAgIC AgICANCjw/kEIuU7edzUDorfV4Y1prNw1NGp0RNF3ij7KzMGDqBRzelpNnLfmIEyXfBNDxSqkLEdg3QL ceAX1NkIJaJ7VtQ6GjGXcrOR6LWXSjABWcaXSdGXSjWJRlUzH3JSSsPVtvRE0YgVLqZIkiLWHoYUSlZc AwIFIgOSAwIFIgMTEgMCBSIDEzIDAgUiAxNSAwIFIg HRtqRZGDXEW1JHScWbGaGUYhFOKjCM0CYHQrU742fwRlOK9HCe0MEmPvKJ5fxb0CBsewCDJxDobYBfa8 DUbmHR1ZiTPfdUCaCPBlVTYEMiEoQ0jkg0BnEmcgHKFJYPibRG2Ot0AxlDCmJWw+Nf3CNH0vj8YmSJnr KWMmMR4jtd9YLJfHHlCdJ4LheFngNJCwj2bwLMYmBB 7czCBpRNZ4FUBuRQ1jMAIDZFhcsU2tFgmlYQDcXWQuFP4tTG9tFZDjDASyGgQwOBHIDM8OCTFuQHXnbW QuFPKqLSQBPS7UASgiJEI5MVJzkuXxiIIbJBygDM8UQMCmdmAuEmlkRWJRHBh+Nk0OGR9oy7LqNWl5ZU PlXU6ecw8CODuFCdHwW0U1wUXtH7I8JNrrIg0MNMXm IJGbApGcLNHRPKkqYU7TCI6dhrE3NA2BkKYdOUJwMQUdaKYxIPl1H78vuFJcTBagNM3BBEY+Law+Pg0K HMAmQSSkOFEiQoWhBJUTRqXlH6XiN4TIv0BmC1XmVZ54nPmtkiChRQhkJM7NXU3pYKHxTSZPQS2DvLQs eA5fyqPrNALaOMLHXmVwP29qfLSqAZCwWMD3SUUsHy 6TFWVpY4UxrfLuqRfxxsOlBQCrAIYMHK8SBMkaefVbwXBcmZstVX55jVeqCL6VTf2CFeJfDM3zzk2JxK LlXb0ADQB3FG3NJIKxIVQtGGBtSJQ5DSCbGeBmYGliWUHwZZCfHBQ9NBJsCNStJA6LYwNzNUZbGYSiDo FrLOYyHZRwjv3BVCWfDLQ4Fkc8KKIsIKSbOGYtPOzz SVGzCSKiDDG2AJWiNWSuPH0MUjGcEEIjMVPzKRzpPLWlDPSybg6JMXDoLFYbQuP0MWWeTZLvWIRnZLjr FIEfZWE4UHI0RVBuZVBpIR3QWoJxWHSyWCI2PWcvPJHiREYtqs1XFVKdCPJzCTTgHaCrYVUkALLlTNwz DVMvPUJ3GtI9NDAyLTGgLX1FBoQyLJLoUQN4KONwGU AkNYUpzf1RCHXmSFTiQit5OgYbDKQpJDUrAYmuMTYsNTF6WOI8LDSsILYeQS7HSfEpZFPrNDMyPJRkXV RiPSIvoz9NCZVgCJYdFGY2AkLrYEWiLVTsYLwjVZYeGYY7Bxn1NFWrUMNuPT7SPaVjXLUeRtL5GWNwER ZcTVZysw2RNJPmNALbRya2TTWiRRBaWPUyADhuRXRe AVU4QXY1LSHhKPGjGN9UKbYtFYTwVdK5KLPnTXJkMUVufy3RDTOkIMQpXPIhMVHbEJUsUXEcLTdfUJRh DIT6AsF3JQXzHJQtOT1FTvVoLKHvIir5OLBtMASxBHUsqx8VZFZzVSZkQYuxNkAeFYNqEXCdXDafYSMz HARzRHb3LWKyVYIrMI1YJyEkYVYpXpDuPXKwVLSxDT Njkj5KNLHfLMFrRWW9ScVxVDOoCXXeBWgrECTgXQXlZRV1BYYgZKBdCQ4XPoBnDTDiBTZ2QlIiTPNeQF Mzxu5MQEWpNYD1DkN7GTFeEVTfLXPdRUxrQZNuEQKhAvx4YDWeTYQlLV8XOfLtFUKoIMV4EGwpSNAiQE Yybq1EOQGkHJO0Xik6JZQeAHOtHLZfOZgfNSTnDNF6 SbM1XIOqCFHeNO4KKeOxEWWmWNJ5BtPqKPXrNWTwas9DJJFgCTO5OUCcSTFoPHKnPLNvEHkmYGXqCPX6 NDJgBQVxOPUpBD4OItBqLAZcWFovCIOnVZEoHVCsxq0KJAKtTYX6PkM5UBQsRFPoOHPmGTnmFGNbQGU0 AbX8UGQrRLKjFQ2YUrAmCEpvVELZYdv0BGrmH0c2GK J3CF4SQ5Mtv5GdYHZkYGTZRHqxJR1ltrCgYZRzEa4JI2fNCveoFCLjSuK9KYViEyKmXzZcJCB2MSUmBK KhGjAgYYA2Sx4nXLV6DUGjUMpuRZBdW8HbGAV1KWzbUPY3LCGbXkTcZPw3GePhNG1UPz3PQpX1XKT6pJ UfAx0EBPf4YidRBuBxWJ6VECf= ID Date Data Source [id number] 01/15/2020 12:22:08 AM EDT [facility] Name Value Range Interpretation Code Description Data Mary rce(s) Supporting Document(s) Progress Note [facility] FVMTSt8vZnTVWqXi37/ICOzzWMKwn0RtYUhvVVi6YXfzKZBjH6MrFNT0jB8bNGF2KOwROiMyPjWzLHA8 lbm [file] pAnr53FxeN6kaZF9EAuBqKmEi6BbSPhd3cVuXUQcdS4Q4j3ASZ1VCDQpbDDeM5uMOP2vOFqHz7R1+Madyson 0zIYErhvzgVeEcXMlzxIf8BlCtwJgMOlDis72OEwpR UyZcJc5hctgUduDKscCksCI6vCrAjmR5bGa8qyMKO6IlCd3x0/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/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 [file] 1wPWTB/F1zcEa75+mm0jHxHhCYt5IksGdTmIcCpmDsq1v7UvDjfGz8rNJokPYBdTvgQfy1u2l/0K+science job titles [file] D50Q47NCGt/TiID+CD+BA+Isaías+PW3vfudO/TpXpY/gN/CY+coepYS6Gb3Ng2rjr5/jZRv4B8SV8Eh/janett/ C7+Bw+jxdUqUY3Vs+gOvZF/Q1K9UU9bmjNxlQ/sXayPMgPfgpcXgvBw4YSVU9YCp+u9vtKgbfYbQ8wfl M28ILaJEptHpulDQ0lHVsebyLpsBYBOMM1kG0KoUzu iZ8I9ztGzVlB5901Wp9YB+Q0JzzflyNJcGZgXZZrir8n7LzTzwfwslGDR6IeaVQ0iTm4vVZMKzXH7XbF qL45qdxo8STi2GAQnYWtZnA9LChU3ge6TuJSwMVVQDcYGha7hcKEKK2YkKIbj8Jnp3rOIaMxv6RKHSoH FdSb2fQxdM74plP1mutaMwaN1QQKFEkPHKPARWECKm Z6kjiyWKWsYSKrlfah9thgLtshphqgeAnfnYKOUnyruWEvPQbJDO3VZ5tgwvy7ENBtC5Xu4RghiithlR hz25DfMXeU9aXtnimGtpcnGY3lUhEzQmY7sTofwLrmHOix42kYkxzQ02psBrNuijEZwmGNTqFBrNmFjm 5hQXlwoXhlHTgDSAudWKtyTCmYzt6zhe6Lxajpu1vx 6uSPSKwaabflTTjtTW+KTHWzSSXICBlnk3B7yYLHDxseLASqCKV3OAANXjoVNRAW5lgnSsdm066EWVKQ [file] NzydC8esNnJWd3Hal6Am4QKZNUK2EJGj== ID Date Data Source [id number] 10/30/2019 09:41:01 AM [facility] Name Value Range Interpretation Code Description Data Mary rce(s) Supporting Document(s) Progress Note [facility] GKYQPv4eLuLNIaGy87/TJOlpPRXxc8MgZTrsEVo6LLwxNILmB5YxIOR0fE5mVXT7ONiSRiDmRpZaQeYo lbm [file] CTp6KQkqDQDQEf1R ID Date Data Source [id number] 10/28/2019 01:55:32 PM [facility] Name Value Range Interpretation Code Description Data Mary rce(s) Supporting Document(s) Glucose [Mass/volume] in Capillary blood by Glucometer 224 mg/dL 70- [address] [facility] ID Date Data Source [id number] 10/28/2019 02:01:00 PM [facility] Value Range Interpretation Code Description Data Mary rce(s) Supporting Document(s) Hemoglobin A1c/Hemoglobin.total in Blood 8.6 % 4.0-6.[address] [facility] Glucose mean value [Mass/volume] in Blood Estimated fr om glycated hemoglobin 200 mg/dL <[address] [facility] ID Date Data Source [id number] 07/27/2019 04:49:13 PM [facility] Value Range Interpretation Code Description Data Mary rce(s) Supporting Document(s) Progress Note [facility] JAUIYq5aDkIDVnFf48/DSKeaUGKvh2BjUEzvIBo5QOwvEBDlX5TcNJF1tG0pCPZ3ZWmBWdBwRQunMZO5 lbm VmAuoDCmOsAJWrFwmDOfHlACrpEbtlyKDlVY2LiDL6TXBxV19hKUPfSQNkA7KxLAExSHg+Ko7ZNYCjlJ BrIP9UAyyS7GyhIskUAX4z9X4yIaY1hKFduzeZRBVmnZSzOPTYp0g1nbA4iRN4iX6U/r5X5cvo05J3gO ldc6CVJ/lEvQo0dUAmdFr/i5eEUXQ5E87/pl/jVKuL uae1YdYcCeJ32+ke3RMAtDy5zJWw/2r8+nt7A2gc82G6DqQq13vYStdExJN3lNc8xb5/V40/ez89edTQ zQL0/QIcTMAoLqBLXOwj+YWTmkUDAEIVo89SSMCVQeKTe8lYV9gnw/BBCTAQTYOGb37OXHqW1nF1XrWv MYFgOLNLgps1XGLZEnib2WNi3hP4h7D+Fl6153iId1 r24+Zlphwi9/3BNKE6AqNxqKazpu66qlDFMhJ0KhDfTtFEbBsf2Zo8d+AIDAN/XxA7Wz1CT/jluXBHTiLU [file] IhBtOoMxKSKpOoThLmzwH2LtGB5cLJVNOo2+RMorwTLmgNfeZOUQRfA5WSP4CEmfXBJDBx6G ID Date Data Source [id number] 07/27/2019 04:49:08 PM [facility] Name Value Range Interpretation Code Description Data Mary rce(s) Supporting Document(s) Progress Note [facility] GIXBYo3cRuYLLtIu14/MHRrlLHBkl8MwUMsxYBm4UHbzCLNrT0MgQSL9lQ3aDBE4NIjWPdBpNOacIWV9 lbm [file] Xt1pcRzlxenTUDsyn5y5rl37pp1QHyP3dsE45VgRtffD36DC/YQl/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 ID Date Data Source [id number] 07/27/2019 12:03:56 PM [facility] Name Value Range Interpretation Code Description Data Mary rce(s) Supporting Document(s) Hemoglobin A1c/Hemoglobin.total in Blood 7.4 % 4.0-6.[address] [facility] Glucose mean value [Mass/volume] in Blood Estimated fr om glycated hemoglobin 166 mg/dL <[address] [facility] Procedure Social History Code Duration Value Status Description Data Source(s ) Alcohol intake 07/28/2020 12:00:00 AM EST Current drinker of al cohol (finding) completed Current drinker of alcohol (finding) [facility] Tobacco use and exposure 07/28/2020 12:00:00 AM EST Former user co mpleted Former user [facility] Cigarette pack-years 07/28/2020 12:00:00 AM EST UNK completed [facility] Cigarettes smoked current (pack per day) - Reported 07/28/20 12:00:00 AM EST UNK completed [facility] Smoking 07/28/2020 12:00:00 AM EST Former smoker completed Former smoker [facility] Alcohol intake 04/25/2020 12:00:00 AM EDT Current drinker of al cohol (finding) completed Current drinker of alcohol (finding) [facility] Alcohol intake 01/27/2020 12:00:00 AM EDT Current drinker of al cohol (finding) completed Current drinker of alcohol (finding) [facility] Cigarette pack-years 01/27/2020 12:00:00 AM EDT UNK completed [facility] Cigarettes smoked current (pack per day) - Reported 01/27/20 12:00:00 AM EDT UNK completed [facility] Smoking 01/27/2020 12:00:00 AM EDT Former smoker completed Former smoker [facility] Alcohol intake 10/28/2019 12:00:00 AM EST Current drinker of al cohol (finding) completed Current drinker of alcohol (finding) [facility] Cigarette pack-years 10/28/2019 12:00:00 AM EST UNK completed [facility] Cigarettes smoked current (pack per day) - Reported 10/28/19 12:00:00 AM EST UNK completed [facility] Smoking 10/28/2019 12:00:00 AM EST Former smoker completed Former smoker [facility] Alcohol intake 07/27/2019 12:00:00 AM EST Current drinker of al cohol (finding) completed Current drinker of alcohol (finding) [facility] Cigarette pack-years 07/27/2019 12:00:00 AM EST UNK completed [facility] Cigarettes smoked current (pack per day) - Reported 07/27/20 12:00:00 AM EST UNK completed [facility] Smoking 07/27/2019 12:00:00 AM EST Former smoker completed Former smoker [facility] Vital Signs ID Date Data Source UNK Name Value Range Interpretation Code Description Data Source(s) Diastolic blood pressure 58 mm[Hg] 58 mm[Hg] eCW1 ([facility]) Systolic blood pressure 144 mm[Hg] 144 mm[Hg] e CW1 ([facility]) Body temperature 97.8 [degF] 97.8 [degF] eCW1 ( [facility]) Respiratory rate 20 /min 20 /min eCW1 ([facility]) Heart rate 62 /min 62 /min eCW1 ([facility]) Body mass index (BMI) [Ratio] 26.66 kg/m2 26.66 kg/m2 eCW1 ([facility]) Body height 65 [in_i] 65 [in_i] eCW1 ([facility]) Body weight 160.2 [lb_av] 160.2 [lb_av] eCW1 ([facility]) Diastolic blood pressure 86 mm[Hg] 86 mm[Hg] eCW1 ([facility]) Systolic blood pressure 142 mm[Hg] 142 mm[Hg] e CW1 ([facility]) Body temperature 97.5 [degF] 97.5 [degF] eCW1 ( [facility]) Respiratory rate 20 /min 20 /min eCW1 ([facility]) Heart rate 71 /min 71 /min eCW1 ([facility]) Body mass index (BMI) [Ratio] 27.19 kg/m2 27.19 kg/m2 eCW1 ([facility]) Body height 65 [in_i] 65 [in_i] eCW1 ([facility]) Body weight 163.4 [lb_av] 163.4 [lb_av] eCW1 ([facility]) Body weight 75.524 kg 75.524 kg MEDENT ([facility], ) Body mass index (BMI) [Ratio] 27.7 kg/m2 27.7 k g/m2 MEDENT ([facility], ) Body weight 166.50 [lb_av] 166.50 [lb_av] MEDEN T ([facility]) Body height 65 [in_i] 65 [in_i] [facility] 5'5" Diastolic blood pressure 69 mm[Hg] 69 mm[Hg] [facility] ([facility]) Systolic blood pressure 196 mm[Hg] 196 mm[Hg] [facility] ([facility]) Body weight 73.030 kg 73.030 kg [facility] ([facility]) Body mass index (BMI) [Ratio] 26.8 kg/m2 26.8 k g/m2 [facility] ([facility]) Body weight 161.00 [lb_av] 161.00 [lb_av] MEDEN T ([facility]) Body height 65 [in_i] 65 [in_i] [facility] ([facility]) 5'5" Diastolic blood pressure 56 mm[Hg] 56 mm[Hg] [facility] ([facility]) Systolic blood pressure 102 mm[Hg] 102 mm[Hg] M [facility] ([facility]) Diastolic blood pressure 78 mm[Hg] 78 mm[Hg] [facility] ([facility]) Systolic blood pressure 190 mm[Hg] 190 mm[Hg] M [facility] ([facility]) Diastolic blood pressure 52 mm[Hg] 52 mm[Hg] eCW1 ([facility]) Systolic blood pressure 114 mm[Hg] 114 mm[Hg] e CW1 ([facility]) Body temperature 97.6 [degF] 97.6 [degF] eCW1 ( [facility]) Respiratory rate 20 /min 20 /min eCW1 ([facility]) Heart rate 71 /min 71 /min eCW1 ([facility]) Body mass index (BMI) [Ratio] 27.12 kg/m2 27.12 kg/m2 W1 ([facility]) Body height 65 [in_us] 65 [in_us] eCW1 ([facility]) Body weight Measured 163.0 [lb_av] 163.0 [lb_av ] eCW1 ([facility]) Diastolic blood pressure 50 mm[Hg] 50 mm[Hg] eCW1 ([facility]) Systolic blood pressure 110 mm[Hg] 110 mm[Hg] e CW1 ([facility]) Body temperature 98 [degF] 98 [degF] eCW1 ([facility]) Respiratory rate 20 /min 20 /min eCW1 ([facility]) Heart rate 60 /min 60 /min eCW1 ([facility]) Body mass index (BMI) [Ratio] 25.79 kg/m2 25.79 kg/m2 eCW1 ([facility]) Body height 65 [in_us] 65 [in_us] eCW1 ([facility]) Body weight Measured 155 [lb_av] 155 [lb_av] eC W1 ([facility]) Diastolic blood pressure 60 mm[Hg] 60 mm[Hg] MEDENT ([facility]) Systolic blood pressure 150 mm[Hg] 150 mm[Hg] M EDENT ([facility]) ID Date Data Source [id number] 08/02/2020 12:54:49 AM [facility] Name Value Range Interpretation Code Description Data Source(s) PREFERRED NAME Charlie Borja [facility] ID Date Data Source [id number] 01/21/2020 02:02:05 PM [facility] Name Value Range Interpretation Code Description Data Source(s) WEIGHT RECORDED 152.7 lb 152.7 lb [facility] Body height Measured 64.69 in 64.69 in [facility] ID Date Data Source [id number] 07/27/2019 10:50:53 AM [facility] Name Value Range Interpretation Code Description Data Source(s) WEIGHT RECORDED 161 lb 161 lb [facility] Body height Measured 64.88 in 64.88 in [facility] Patient Treatment Plan of Care Planned Activity Planned Date Details Description Data Source (s) Cephalexin 250 MG Oral Capsule [Keflex] 08/29/2020 12:00:00 AM EST eCW1 ([facility]) Losartan Potassium 50 MG Oral Tablet 07/16/2020 12:00:00 AM [facility] Insulin Lispro 100 UNT/ML Injectable Solution [Humalog ] 07/11/2020 12:00:00 AM [facility] topiramate 25 MG Oral Tablet 06/22/2020 12:00:00 AM EDT eCW1 ([facility]) topiramate 25 MG Oral Tablet 06/22/2020 12:00:00 AM EDT eCW1 ([facility]) topiramate 25 MG Oral Tablet 06/22/2020 12:00:00 AM EDT eCW1 ([facility]) topiramate 25 MG Oral Tablet 06/22/2020 12:00:00 AM EDT eCW1 ([facility]) Insulin Lispro 100 UNT/ML Injectable Solution [Humalog ] 03/11/2020 12:00:00 AM [facility] Labetalol hydrochloride 200 MG Oral Tablet 11/24/2019 12:00:00 AM E [facility] Dexcom G6 Transmitter 10/28/2019 12:00:00 AM [facility] Dexcom G6 Sensor 10/28/2019 12:00:00 AM [facility] Acetaminophen 325 MG / Hydrocodone Bitartrate 5 MG Ora l Tablet 08/17/2019 12:00:00 AM EST eCW1 ([facility]) Acetaminophen 325 MG / Hydrocodone Bitartrate 5 MG Ora l Tablet 08/17/2019 12:00:00 AM EST eCW1 ([facility]) Glucagon 3 MG/DOSE Nasal Powder (BAQSIMI ONE PACK) 07/27/2019 12 :00:00 AM [facility] Hydralazine Hydrochloride 50 MG Oral Tablet 02/18/2019 12:00:00 AM [facility] 1.5 ML insulin human, isophane 100 UNT/ML Prefilled Sy ringe 10/20/2018 12:00:00 AM [facility] Acetaminophen 325 MG / Hydrocodone Bitartrate 5 MG Ora l Tablet 06/15/2017 12:00:00 AM [facility] Continuous Blood Gluc Administrative Staff Supervisor (FREESTYLE JINA 14 DAY READER) [facility] Dexcom G5 Mobile Transmitter [facility] Dexcom G5 Mobile Administrative Staff Supervisor Device [facility] Continuous Blood Gluc Sensor (FREESTYLE JINA 14 DAY SENSOR) [facility]
[2020-09-24 14:39] LABS: HEMATOCRIT 25.6 % (42.0-52.0); HEMOGLOBIN 8.5 g/dl (13.5-17.5); MEAN CORPUSCULAR HEMOGLOBIN 34.7 pg (27.0-33.0); MEAN CORPUSCULAR HGB CONC 33.2 g/dl (32.0-36.5); MEAN CORPUSCULAR VOLUME 104.5 fl (80.0-96.0); PLATELET COUNT, AUTOMATED 239 10^3/uL (150-450); RED BLOOD COUNT 2.45 10^6/uL (4.30-6.10); WHITE BLOOD COUNT 5.2 10^3/uL (4.0-10.0)
--- OUTSIDE RECORDS SUMMARY | 2020-09-24 14:58 | CCD ---
Author Author [facility] Organization [facility] Address Unknown Phone Unavailable Care Team Providers Care Business Development Representative Name Role Phone Fons, M Asya SAFETY DIRECTOR Unavailable Unavailable Fons, M Asya SAFETY DIRECTOR Unavailable Unavailable Fons, M Asya SAFETY DIRECTOR Unavailable Unavailable Fons, M Asya SAFETY DIRECTOR Unavailable Unavailable Fons, M Asya SAFETY DIRECTOR Unavailable Unavailable Fons, M Asya SAFETY DIRECTOR Unavailable Unavailable Fons, M Asya SAFETY DIRECTOR Unavailable Unavailable Fons, M Asya SAFETY DIRECTOR Unavailable Unavailable Fons, M Asya SAFETY DIRECTOR Unavailable Unavailable Fons, M Asya SAFETY DIRECTOR Unavailable Unavailable Fons, M Asya SAFETY DIRECTOR Unavailable Unavailable Fons, M Asya SAFETY DIRECTOR Unavailable Unavailable Fons, M Asya SAFETY DIRECTOR Unavailable Unavailable Fons, M Asya SAFETY DIRECTOR Unavailable Unavailable Fons, M Asya SAFETY DIRECTOR Unavailable Unavailable Fons, M Asya SAFETY DIRECTOR Unavailable Unavailable Fons, M Asya SAFETY DIRECTOR Unavailable Unavailable Fons, M Asya SAFETY DIRECTOR Unavailable Unavailable Fons, M Asya SAFETY DIRECTOR Unavailable Unavailable Fons, M Asya SAFETY DIRECTOR Unavailable Unavailable Fons, M Asya SAFETY DIRECTOR Unavailable Unavailable Fons, M Asya SAFETY DIRECTOR Unavailable Unavailable Fons, M Asya SAFETY DIRECTOR Unavailable Unavailable Fons, M Asya SAFETY DIRECTOR Unavailable Unavailable Fons, M Asya SAFETY DIRECTOR Unavailable Unavailable Fons, M Asya SAFETY DIRECTOR Unavailable Unavailable Fons, M Asya SAFETY DIRECTOR Unavailable Unavailable Fons, M Asya SAFETY DIRECTOR Unavailable Unavailable Fons, M Asya SAFETY DIRECTOR Unavailable Unavailable Fons, M Asya SAFETY DIRECTOR Unavailable Unavailable Fons, M Asya SAFETY DIRECTOR Unavailable Unavailable Fons, M Asya SAFETY DIRECTOR Unavailable Unavailable Fons, M Asya SAFETY DIRECTOR Unavailable Unavailable Fons, M Asya SAFETY DIRECTOR Unavailable Unavailable Fons, M Asya SAFETY DIRECTOR Unavailable Unavailable Fons, M Asya SAFETY DIRECTOR Unavailable Unavailable Fons, M Asya SAFETY DIRECTOR Unavailable Unavailable Fons, M Asya SAFETY DIRECTOR Unavailable Unavailable Fons, M Asya SAFETY DIRECTOR Unavailable Unavailable Fons, M Asya SAFETY DIRECTOR Unavailable Unavailable Fons, M Asya SAFETY DIRECTOR Unavailable Unavailable Fons, M Asya SAFETY DIRECTOR Unavailable Unavailable Fons, M Asya SAFETY DIRECTOR Unavailable Unavailable Fons, M Asya SAFETY DIRECTOR Unavailable Unavailable Fons, M Asya SAFETY DIRECTOR Unavailable Unavailable Fons, M Asya SAFETY DIRECTOR Unavailable Unavailable Fons, M Asya SAFETY DIRECTOR Unavailable Unavailable Fons, M Asya SAFETY DIRECTOR Unavailable Unavailable Fons, M Asya SAFETY DIRECTOR Unavailable Unavailable Fons, M Asya SAFETY DIRECTOR Unavailable Unavailable Fons, M Asya SAFETY DIRECTOR Unavailable Unavailable Fons, M Asya SAFETY DIRECTOR Unavailable Unavailable Fons, M Asya SAFETY DIRECTOR Unavailable Unavailable Fons, M Asya SAFETY DIRECTOR Unavailable Unavailable Tolu Petersen MD Unavailable Unavailable [...] Unavailable Tolu Petersen MD Unavailable Unavailable Tolu Petersne MD Unavailable Unavailable Tolu Petersen MD Unavailable [...] BENOIT MD Unavailable Unavailable Birchenough, L Veronica LOAN AUDITOR Unavailable Unavailable Birchenough, L Veronica LOAN AUDITOR Unavailable Unavailable Birchenough, L Veronica LOAN AUDITOR Unavailable Unavailable Birchenough, L Veronica LOAN AUDITOR Unavailable Unavailable Birchenough, L Veronica LOAN AUDITOR Unavailable Unavailable Birchenough, L Veronica LOAN AUDITOR Unavailable Unavailable Birchenough, L Veronica LOAN AUDITOR Unavailable Unavailable Birchenough, L Veronica LOAN AUDITOR Unavailable Unavailable Birchenough, L Veronica LOAN AUDITOR Unavailable Unavailable Birchenough, L Veronica LOAN AUDITOR Unavailable Unavailable Birchenough, L Veroinca LOAN AUDITOR Unavailable Unavailable Birchenough, L Veronica LOAN AUDITOR Unavailable Unavailable Birchenough, L Veronica LOAN AUDITOR Unavailable Unavailable Birchenough, L Veronica LOAN AUDITOR Unavailable Unavailable Birchenough, L Veronica LOAN AUDITOR Unavailable Unavailable Birchenough, L Veronica LOAN AUDITOR Unavailable Unavailable Birchenough, L Veronica LOAN AUDITOR Unavailable Unavailable Birchenough, L Veronica LOAN AUDITOR Unavailable Unavailable Birchenough, L Veronica LOAN AUDITOR Unavailable Unavailable Birchenough, L Veronica LOAN AUDITOR Unavailable Unavailable Birchenough, L Veronica LOAN AUDITOR Unavailable Unavailable Birchenough, L Veronica LOAN AUDITOR Unavailable Unavailable Birchenough, L Veronica LOAN AUDITOR Unavailable Unavailable Birchenough, L Veronica LOAN AUDITOR Unavailable Unavailable Birchenough, L Veronica LOAN AUDITOR Unavailable Unavailable Birchenough, L Veronica LOAN AUDITOR Unavailable Unavailable Birchenough, L Veronica LOAN AUDITOR Unavailable Unavailable Birchenough, L Veronica LOAN AUDITOR Unavailable Unavailable Birchenough, L Veronica LOAN AUDITOR Unavailable Unavailable Birchenough, L Veronica LOAN AUDITOR Unavailable Unavailable Birchenough, L Veronica LOAN AUDITOR Unavailable Unavailable Birchenough, L Veronica LOAN AUDITOR Unavailable Unavailable Birchenough, L Veronica LOAN AUDITOR Unavailable Unavailable Birchenough, L Veronica LOAN AUDITOR Unavailable Unavailable Geloff, A Mirna Unavailable Unavailable [...] is protected by Article 27-F of the [facility] Public Health law. If you continue you may have access to information: Regarding HIV / AIDS; Provided by facilities licensed or operated by the [facility] Office of Mental Health; or Provided by the [facility] Office for People With Developmental Disabilities. If such information is present, then the following [facility] mandated warning applies: This information has been [...] law may result in a fine or shelter sentence or both. A general authorization for the release of medical or other information is NOT sufficient authorization for further disc losure. Allergies and Adverse Reactions Type Description Substance Reaction Status Data Source(s ) DRUG INGREDI CELECOXIB [facility] Drug allergy Bactrim sulfamethoxazole / trimethoprim kidney failur e Active eCW1 ([facility]) tizanidine Tizanidine HCl tizanidine Confusion 07/2019 Active eC W1 ([facility]ending Sale To [facility]) Motrin Motrin Motrin kidney damage Active eCW1 ([facility]) Torres Inhibitors Torres Inhibitors Torres Inhibitors kidney failure Active eCW1 ([facility]ending Sale To [facility]) Flexeril Flexeril Flexeril causes dizziness Active eCW1 ([facility]) Motrin Motrin Motrin kidney damage Active eCW1 ([facility]) Torres Inhibitors Torres Inhibitors Torres Inhibitors kidney failure Active eCW1 (Pending Sale To [facility]) Flexeril Flexeril Flexeril causes dizziness Active eCW1 ([facility]) Family History Family Member Name Family Member Gender Family Member Status Date o f Status Description Data Source(s) Unknown Male Problem MEDENT ([facility]) Unknown Unknown Problem MEDENT ([facility], ) Unknown Unknown Problem MEDENT ([facility], ) Encounters Encounter Providers Location Date Indications Data Source(s ) Outpatient Attender: CY SZYMANSKI MD 03/22/2021 12:00 :00 AM [facility] Outpatient Attender: Mirna Garsia 11/29/2020 12:00:00 AM [facility] [place] [address] [address] 09/18/2020 12:00:00 AM EST eCW1 ([facility]) [place] [address] [address] 09/12/2020 12:00:00 AM EST eCW1 ([facility]) [place] [address] [address] 08/29/2020 12:00:00 AM EST eCW1 [facility] Outpatient Attender: CY SZYMANSKI MD 08/03/2020 12:00 :00 AM [facility] Outpatient Attender: CY SZYMANSKI MD [id number] 1 09/27/2019 12:00:00 AM EST - 07/28/2020 10:46:23 AM EST Type 1 diabetes mellitus with hyperglycemia [facility] Type 1 diabetes mellitus with hyperglyce mily [place] [address] [address] 07/20/2020 12:00:00 AM EST eCW1 ([facility]) [place] [address] [address] 07/20/2020 12:00:00 AM EST eCW1 ([facility]) [place] [address] [address] 07/18/2020 12:00:00 AM EST eCW1 ([facility]) Office Visit, Est Pt., Level [address] [place] [address] 07/11/2020 12:00:00 AM EST eCW1 ([facility]) [place] [address] [address] 07/01/2020 12:00:00 AM EDT eCW1 ([facility]) [place] [address] [address] 07/01/2020 12:00:00 AM EDT [facility] [place] [address] [address] 06/30/2020 12:00:00 AM EDT eCW1 ([facility]) Outpatient [address] [address] 06/22/2020 12:00:00 AM EDT eCW1 ([facility]) [place] [address] [address] 2020 12:00:00 AM EDT eCW1 ([facility]) [place] [address] [address] 2020 12:00:00 AM EDT eCW1 ([facility]) [place] [address] [address] 2020 12:00:00 AM EDT eCW1 ([facility]) Outpatient Attender: NELY KILGORE RN [id number] 05/2020 12:00:00 AM EDT - 05/18/2020 09:36:35 AM EDT 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, bilateral [facility] 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, bilateral Outpatient 05/13/2020 12:00:00 AM [facility] [place] [address] [address] 05/04/2020 12:00:00 AM EDT eCW1 ([facility]) Outpatient Attender: Mirna Garsia [id number] 05/02/2020 12:00:00 A M [facility] Outpatient Attender: Chelo Mcgregor/Vikas/Karl/Santos nathan 03/23/2020 09:30:00 AM EDT MEDJEN ([facility]) Outpatient Attender: Tolu INIGUEZ.KADEN-JEFFREY 03/09 09:44:35 AM EDT - 03/21/2020 10:16:49 AM EDT [facility] [place] [address] [address] 03/19/2020 12:00:00 AM EDT eCW1 ([facility]) Outpatient Attender: EDDI RAMOS [id number] 03/02/2020 03:14:11 PM EDT [facility] Unknown [address] [address] 02/27/2020 12:00:00 AM EDT eCW1 ([facility]) [place] [address] [address] 02/27/2020 12:00:00 AM EDT eCW1 ([facility]) [place] [address] [address] 02/18/2020 12:00:00 AM EDT eCW1 ([facility]) Outpatient Attender: Mirna Garsia [id number] 01/27/20 20 12:00:00 AM EDT - 01/27/2020 01:27:05 PM EDT 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, bilateral [facility] 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, bilateral Outpatient Attender: Mirna Garsia 01/26/2020 12:00:00 AM [facility] Outpatient Attender: Asya FERNANDEZ SJP.KADEN-SJP.KADEN 0 08:07:25 AM EDT - 01/18/2020 11:54:23 AM EDT [facility] [place] [address] [address] 01/11/2020 12:00:00 AM EDT eCW1 ([facility]) [facility] [place] [address] [address] 01/08/2020 12:00:00 AM EDT eCW1 ([facility]) Outpatient Referrer: Veronica PATRICK 12/29/2019 07:54 :00 AM EDT [facility] [address] [place] [address], [place] [address] 12/16/2019 12:00:00 AM EDT eCW1 ([facility]) [address] [address] 11/20/2019 12:00:00 AM EDT [facility]CW1 [facility] [address] [address] 11/12/2019 12:00:00 AM EST [facility]CW1 [facility] [address] [address] 11/10/2019 12:00:00 AM EST eCW1 [facility] [address] [address] 11/08/2019 12:00:00 AM EST eCW1 ([facility] [address] [address] 11/06/2019 12:00:00 AM EST eCW1 ([facility] [address] [address] 10/30/2019 12:00:00 AM EST [facility]CW1 [facility] Outpatient Attender: CY SZYMANSKI MD [id number] 0 10/28/2019 12:00:00 AM EST - 10/28/2019 03:07:04 PM EST Type 1 diabetes mellitus with hyperglycemia [facility] Type 1 diabetes mellitus with hyperglyce mily [address] [address] 09/05/2019 12:00:00 AM EST eCW1 ([facility]) [address] [address] 08/29/2019 12:00:00 AM EST eCW1 ([facility] [address] [address] 08/17/2019 12:00:00 AM EST eCW1 ([facility]) [address] [address] 08/17/2019 12:00:00 AM EST eCW1 ([facility]) [address] [address] 08/14/2019 12:00:00 AM EST eCW1 ([facility]) [address] [address] 08/12/2019 12:00:00 AM EST eCW1 ([facility]) [address] [address] 08/12/2019 12:00:00 AM EST eCW1 ([facility]) [address] [address] 08/03/2019 12:00:00 AM EST eCW1 ([facility]) Outpatient Attender: Mirna Garsia [id number] 07/27/20 12:00:00 AM EST - 07/27/2019 01:07:19 PM EST Type 1 diabetes mellitus with [facility] Type 1 diabetes mellitus with hyperglyce mily [address] [address] 07/27/2019 12:00:00 AM EST eCW1 ([facility]) Immunizations Vaccine Date Status Description Data Source(s) Zoster 50mcg/0.5mL ([facility]) 08/12/2019 08:06:00 AM EST completed eCW1 ([facility]ending Sale To [facility]) Zoster 50mcg/0.5mL ([facility]) 08/12/2019 08:06:00 AM EST completed eCW1 ([facility]ending [facility] To [facility]) Zoster 50mcg/0.5mL ([facility]) 08/12/2019 08:06:00 AM EST completed eCW1 ([facility] To [facility]) Zoster 50mcg/0.5mL ([facility]) 08/12/2019 08:06:00 AM EST completed eCW1 ([facility]ending [facility] To [facility]) Zoster 50mcg/0.5mL ([facility]) 08/12/2019 08:06:00 AM EST completed eCW1 ([facility]ending [facility]) Zoster 50mcg/0.5mL ([facility]) 08/12/2019 08:06:00 AM EST completed eCW1 ([facility]ending [facility]) Zoster 50mcg/0.5mL ([facility]) 08/12/2019 08:06:00 AM EST completed eCW1 ([facility]ending [facility] To [facility]) Zoster 50mcg/0.5mL ([facility]) 08/12/2019 08:06:00 AM EST completed eCW1 ([facility]ending [facility] To [facility]) Zoster 50mcg/0.5mL ([facility]) 08/12/2019 08:06:00 AM EST completed eCW1 ([facility]ending [facility]) Zoster 50mcg/0.5mL ([facility]) 08/12/2019 08:06:00 AM EST completed eCW1 ([facility]ending [facility]) Zoster 50mcg/0.5mL ([facility]) 08/12/2019 08:06:00 AM EST completed eCW1 ([facility]ending [facility]) Zoster 50mcg/0.5mL ([facility]) 08/12/2019 08:06:00 AM EST completed eCW1 ([facility]ending [facility]) Zoster 50mcg/0.5mL ([facility]) 08/12/2019 08:06:00 AM EST completed eCW1 ([facility]ending [facility]) Zoster 50mcg/0.5mL (Shingrix) 08/12/2019 08:06:00 AM EST completed eCW1 ([facility]ending [facility]) Zoster 50mcg/0.5mL ([facility]) 08/12/2019 08:06:00 AM EST completed eCW1 ([facility]ending [facility]) Zoster 50mcg/0.5mL ([facility]) 08/12/2019 08:06:00 AM EST completed eCW1 ([facility]ending [facility]) Zoster 50mcg/0.5mL ([facility]) 08/12/2019 08:06:00 AM EST completed eCW1 ([facility]ending [facility]) Medications Medication Brand Name Start Date Product Form Dose Route Admi nistrative Instructions Pharmacy Instructions Status Indications Reaction Description Data Source(s) pantoprazole 40 MG Delayed Release Oral Tablet Pantopr azole Sodium 40 MG Pantoprazole Sodium 40 MG 09/11/2020 12:00:00 AM EST 1.0 {tablet} active Pantoprazole Sodium 40 MG eCW1 ( [facility]ending [facility]) Losartan Potassium 50 MG Oral Tablet Losartan Potassium 50 M G 09/11/2020 12:00:00 AM EST 1.0 {tablet} active Lo sartan Potassium 50 MG eCW1 (Pending Sale To [facility]) Labetalol hydrochloride 200 MG Oral Tablet Labetalol H Cl 200 MG Labetalol HCl 200 MG 09/11/2020 12:00:00 AM EST 1.0 {tablet} activ e Labetalol HCl 200 MG eCW1 (Pending Sale To [facility]) doxycycline hyclate 100 MG Oral Capsule Doxycycline Hy clate 100 MG Doxycycline Hyclate 100 MG 09/11/2020 12:00:00 AM EST 1.0 {capsule} active Doxycycline Hyclate 100 MG eCW1 (Pending Sale To [facility]) pantoprazole 40 MG Delayed Release Oral Tablet Pantopr azole Sodium 40 MG Pantoprazole Sodium 40 MG 09/11/2020 12:00:00 AM EST 1.0 {tablet} active Pantoprazole Sodium 40 MG eCW1 ( [facility]ending [facility]) clopidogrel 75 MG Oral Tablet Clopidogrel Bisulfate 75 MG Clopidogrel Bisulfate 75 MG 09/11/2020 12:00:00 AM EST 1.0 {tablet} activ e Clopidogrel Bisulfate 75 MG eCW1 (Pending Sale To [facility]) Calcium 600 600 MG Calcium 600 600 MG 09/11/2020 12:00:00 AM EST active Calcium 600 600 MG eCW1 ([facility]) Citalopram 40 MG Oral Tablet Citalopram Hydrobromide 4 0 MG Citalopram Hydrobromide 40 MG 09/11/2020 12:00:00 AM EST active Citalopram Hydrobromide 40 MG eCW1 (Pending [facility]) Calcitriol 0.84786 MG Oral Capsule Calcitriol 0.25 MCG Calci triol 0.25 MCG 09/11/2020 12:00:00 AM EST 1.0 {capsule} active Calcitriol 0.25 MCG eCW1 (Pending Sale To [facility]) Calcium 600 600 MG Calcium 600 600 MG 09/11/2020 12:00:00 AM EST active Calcium 600 600 MG eCW1 ([facility]) Citalopram 40 MG Oral Tablet Citalopram Hydrobromide 4 0 MG Citalopram Hydrobromide 40 MG 09/11/2020 12:00:00 AM EST active Citalopram Hydrobromide 40 MG eCW1 (Pending Sale To [facility]) atorvastatin 80 MG Oral Tablet Atorvastatin Calcium 80 MG Atorvastatin Calcium 80 MG 09/11/2020 12:00:00 AM EST 1.0 {tablet} activ e Atorvastatin Calcium 80 MG eCW1 (Pending Sale To [facility]) Clonidine Hydrochloride 0.1 MG Oral Tablet Clonidine H Cl 0.1 MG Clonidine HCl 0.1 MG 09/11/2020 12:00:00 AM EST active Clonidine HCl 0.1 MG eCW1 (Pending Sale To [facility]) Ferrous Sulfate 325 MG UNK 09/11/2020 12:00:00 AM EST active Ferrous Sulfate 325 MG eCW1 (Pending Sale To [facility]) Calcitriol 0.85097 MG Oral Capsule Calcitriol 0.25 MCG Calci triol 0.25 MCG 09/11/2020 12:00:00 AM EST 1.0 {capsule} active Calcitriol 0.25 MCG eCW1 (Pending Sale To [facility]) Labetalol hydrochloride 200 MG Oral Tablet Labetalol H Cl 200 MG Labetalol HCl 200 MG 09/11/2020 12:00:00 AM EST 1.0 {tablet} activ e Labetalol HCl 200 MG eCW1 ([facility]ending [facility] To [facility]) Ipratropium-Albuterol 20-100 MCG/ACT UNK 09/11/2020 12:00: 00 AM EST 1.0 {puff_as_needed} active Ipratropium-Alb uterol 20-100 MCG/ACT eCW1 (Pending Sale To [facility]) atorvastatin 80 MG Oral Tablet Atorvastatin Calcium 80 MG Atorvastatin Calcium 80 MG 09/11/2020 12:00:00 AM EST 1.0 {tablet} activ e Atorvastatin Calcium 80 MG eCW1 (Pending Sale To [facility]) Losartan Potassium 50 MG Oral Tablet Losartan Potassium 50 M G 09/11/2020 12:00:00 AM EST 1.0 {tablet} active Lo sartan Potassium 50 MG eCW1 (Pending Sale To [facility]) Albuterol 0.83 MG/ML Inhalant Solution Albuterol Sulfa te (2.5 MG/3ML) 0.083% Albuterol Sulfate (2.5 MG/3ML) 0.083% 09/11/2020 12:00:00 AM EST 3.0 {ml_as_needed} active Albuterol Sulfate (2.5 MG/3ML) 0.083% eCW1 (Pending Sale To [facility]) Mirtazapine 45 MG Disintegrating Oral Tablet [Remeron] Remeron SolTab 45 MG Remeron SolTab 45 MG 09/11/2020 12:00:00 AM EST 1.0 {tablet_on_the_tongue_and_allow_to_dissolve_at_bedtime} active Remeron SolTab 45 MG eCW1 (Pending Sale To [facility]) Albuterol 0.83 MG/ML Inhalant Solution Albuterol Sulfa te (2.5 MG/3ML) 0.083% Albuterol Sulfate (2.5 MG/3ML) 0.083% 09/11/2020 12:00:00 AM EST 3.0 {ml_as_needed} active Albuterol Sulfate (2.5 MG/3ML) 0.083% eCW1 (Pending Sale To [facility]) Mirtazapine 45 MG Disintegrating Oral Tablet [Remeron] Remeron SolTab 45 MG Remeron SolTab 45 MG 09/11/2020 12:00:00 AM EST 1.0 {tablet_on_the_tongue_and_allow_to_dissolve_at_bedtime} active Remeron SolTab 45 MG eCW1 (Pending Sale To [facility]) Clonidine Hydrochloride 0.1 MG Oral Tablet Clonidine H Cl 0.1 MG Clonidine HCl 0.1 MG 09/11/2020 12:00:00 AM EST active Clonidine HCl 0.1 MG eCW1 (Pending Sale To [facility]) doxycycline hyclate 100 MG Oral Capsule Doxycycline Hy clate 100 MG Doxycycline Hyclate 100 MG 09/11/2020 12:00:00 AM EST 1.0 {capsule} active Doxycycline Hyclate 100 MG eCW1 (Pending Sale To [facility]) Ipratropium-Albuterol 20-100 MCG/ACT UNK 09/11/2020 12:00: 00 AM EST 1.0 {puff_as_needed} active Ipratropium-Alb uterol 20-100 MCG/ACT eCW1 (Pending Sale To [facility]) clopidogrel 75 MG Oral Tablet Clopidogrel Bisulfate 75 MG Clopidogrel Bisulfate 75 MG 09/11/2020 12:00:00 AM EST 1.0 {tablet} activ e Clopidogrel Bisulfate 75 MG eCW1 (Pending Sale To [facility]) Ferrous Sulfate 325 MG UNK 09/11/2020 12:00:00 AM EST active Ferrous Sulfate 325 MG eCW1 (Pending Sale To [facility]) doxycycline hyclate 100 MG Oral Tablet DOXYCYCLINE [...] {capsule} active K eflex 250 MG eCW1 (Pending Sale To [facility]) Losartan Potassium 50 MG Oral Tablet Los melissa Potassium 50 MG Oral Tablet (COZAAR) Losartan Potassium 50 MG Oral Tablet (COZAAR) 07/16/20 12:00:00 AM EST Oral active Take by mouth rudi [facility] Insulin Lispro 100 UNT/ML Injectable Sherie ution [Humalog] HumaLOG 100 UNIT/ML Subcutaneous Solution HumaLOG 100 UNIT/ML Subcutaneous Solution 07/11/2020 12:00:00 AM EST active Type 1 diabetes mellitus with hyperglycemia USE WITH INSULIN PUMP- TOTAL DAILY DOSE NOT TO EXCEED 85 UNITS WITH [facility] Type 1 diabetes mellitus with hyperglyce mily topiramate 25 MG Oral Tablet Topiramate 25 MG Topiramate 25 MG 06/22/2020 12:00:00 AM EDT 1.0 {tablet} suspended Topiramate 25 MG eCW1 (Pending Sale To [facility]) topiramate 25 MG Oral Tablet Topiramate 25 MG Topiramate 25 MG 06/22/2020 12:00:00 AM EDT 1.0 {tablet} suspended Topiramate 25 MG eCW1 (Pending Sale To [facility]) topiramate 25 MG Oral Tablet Topiramate 25 MG Topiramate 25 MG 06/22/2020 12:00:00 AM EDT 1.0 {tablet} active To piramate 25 MG eCW1 (Pending Sale To [facility]) topiramate 25 MG Oral Tablet Topiramate 25 MG Topiramate 25 MG 06/22/2020 12:00:00 AM EDT 1.0 {tablet} active To piramate 25 MG eCW1 (Pending Sale To [facility]) topiramate 25 MG Oral Tablet Topiramate 25 MG Topiramate 25 MG 06/22/2020 12:00:00 AM EDT 1.0 {tablet} suspended Topiramate 25 MG eCW1 (Pending Sale To [facility]) topiramate 25 MG Oral Tablet Topiramate 25 MG Topiramate 25 MG 06/22/2020 12:00:00 AM EDT 1.0 {tablet} suspended Topiramate 25 MG eCW1 (Pending Sale To [facility]) topiramate 25 MG Oral Tablet Topiramate 25 MG Topiramate 25 MG 06/22/2020 12:00:00 AM EDT 1.0 {tablet} active To piramate 25 MG eCW1 (Pending Sale To [facility]) topiramate 25 MG Oral Tablet Topiramate 25 MG Topiramate 25 MG 06/22/2020 12:00:00 AM EDT 1.0 {tablet} suspended Topiramate 25 MG eCW1 (Pending Sale To [facility]) topiramate 25 MG Oral Tablet Topiramate 25 MG Topiramate 25 MG 06/22/2020 12:00:00 AM EDT 1.0 {tablet} active To piramate 25 MG eCW1 (Pending Sale To [facility]) topiramate 25 MG Oral Tablet Topiramate 25 MG Topiramate 25 MG 06/22/2020 12:00:00 AM EDT 1.0 {tablet} active To piramate 25 MG eCW1 (Pending Sale To [facility]) topiramate 25 MG Oral Tablet Topiramate 25 MG Topiramate 25 MG 06/22/2020 12:00:00 AM EDT 1.0 {tablet} active To piramate 25 MG eCW1 (Pending Sale To [facility]) Insulin Lispro 100 UNT/ML Injectable Sherie ution [Humalog] HumaLOG 100 UNIT/ML Subcutaneous Solution HumaLOG 100 UNIT/ML Subcutaneous Solution 03/11/2020 12:00:00 AM EDT active Type 1 diabetes mellitus with hyperglycemia Use as instructed via pump. Max daily dose not to exceed 90 units with priming and titration. E10.65 [facility] Type 1 diabetes mellitus with hyperglyce mily Labetalol hydrochloride 200 MG Oral Tabl et Labetalol HCl 200 MG Oral Tablet (NORMODYNE) Labetalol HCl 200 MG Oral Tablet (NORMODYNE) 0 12:00:00 AM EDT 200 mg active 200 mg Two Times Daily [facility] Dexcom G6 Sensor [id number] 10/28/2019 12:00:00 AM EST 1 {each} Does not apply active 1 each by Does not a pply route every 10 (ten) days [facility] Dexcom G6 Transmitter [id number] 10/28/2019 12:00:00 AM EST 1 {each} Does not apply active 1 each by Does not a pply route every 3 (three) months [facility] Acetaminophen 325 MG / Hydrocodone Dhiraj trate 5 MG Oral Tablet Hydrocodone- Acetaminophen 5-325 MG Hydrocodone-Acetaminophen 5-325 MG 08/17/2019 12:00:00 AM EST active 1 tablet eCW1 ([facility]) Acetaminophen 325 MG / Hydrocodone Dhiraj trate 5 MG Oral Tablet Hydrocodone- Acetaminophen 5-325 MG Hydrocodone-Acetaminophen 5-325 MG 08/17/2019 12:00:00 AM EST 1.0 {tablet} active Hydrocodone -Acetaminophen 5-325 MG eCW1 (Pending Sale To [facility]) Acetaminophen 325 MG / Hydrocodone Dhiraj trate 5 MG Oral Tablet Hydrocodone- Acetaminophen 5-325 MG Hydrocodone-Acetaminophen 5-325 MG 08/17/2019 12:00:00 AM EST 1.0 {tablet} active Hydrocodone -Acetaminophen 5-325 MG eCW1 (Pending Sale To [facility]) Acetaminophen 325 MG / Hydrocodone Dhiraj trate 5 MG Oral Tablet Hydrocodone- Acetaminophen 5-325 MG Hydrocodone-Acetaminophen 5-325 MG 08/17/2019 12:00:00 AM EST 1.0 {tablet} active Hydrocodone -Acetaminophen 5-325 MG eCW1 (Pending Sale To [facility]) Acetaminophen 325 MG / Hydrocodone Dhiraj trate 5 MG Oral Tablet Hydrocodone- Acetaminophen 5-325 MG Hydrocodone-Acetaminophen 5-325 MG 08/17/2019 12:00:00 AM EST 1.0 {tablet} active Hydrocodone -Acetaminophen 5-325 MG eCW1 (Pending Sale To [facility]) Acetaminophen 325 MG / Hydrocodone Dhiraj trate 5 MG Oral Tablet Hydrocodone- Acetaminophen 5-325 MG Hydrocodone-Acetaminophen 5-325 MG 08/17/2019 12:00:00 AM EST 1.0 {tablet} active Hydrocodone -Acetaminophen 5-325 MG eCW1 (Pending Sale To [facility]) Acetaminophen 325 MG / Hydrocodone Dhiraj trate 5 MG Oral Tablet Hydrocodone- Acetaminophen 5-325 MG Hydrocodone-Acetaminophen 5-325 MG 08/17/2019 12:00:00 AM EST 1.0 {tablet} active Hydrocodone -Acetaminophen 5-325 MG eCW1 (Pending Sale To [facility]) Acetaminophen 325 MG / Hydrocodone Dhiraj trate 5 MG Oral Tablet Hydrocodone- Acetaminophen 5-325 MG Hydrocodone-Acetaminophen 5-325 MG 08/17/2019 12:00:00 AM EST 1.0 {tablet} active Hydrocodone -Acetaminophen 5-325 MG eCW1 (Pending Sale To [facility]) Acetaminophen 325 MG / Hydrocodone Dhiraj trate 5 MG Oral Tablet Hydrocodone- Acetaminophen 5-325 MG Hydrocodone-Acetaminophen 5-325 MG 08/17/2019 12:00:00 AM EST 1.0 {tablet} active Hydrocodone -Acetaminophen 5-325 MG eCW1 (Pending Sale To [facility]) Acetaminophen 325 MG / Hydrocodone Dhiraj trate 5 MG Oral Tablet Hydrocodone- Acetaminophen 5-325 MG Hydrocodone-Acetaminophen 5-325 MG 08/17/2019 12:00:00 AM EST 1.0 {tablet} active Hydrocodone -Acetaminophen 5-325 MG eCW1 (Pending Sale To [facility]) Acetaminophen 325 MG / Hydrocodone Dhiraj trate 5 MG Oral Tablet Hydrocodone- Acetaminophen 5-325 MG Hydrocodone-Acetaminophen 5-325 MG 08/17/2019 12:00:00 AM EST 1.0 {tablet} active Hydrocodone -Acetaminophen 5-325 MG eCW1 (Pending Sale To [facility]) Acetaminophen 325 MG / Hydrocodone Dhiraj trate 5 MG Oral Tablet Hydrocodone- Acetaminophen 5-325 MG Hydrocodone-Acetaminophen 5-325 MG 08/17/2019 12:00:00 AM EST 1.0 {tablet} active Hydrocodone -Acetaminophen 5-325 MG eCW1 (Pending Sale To [facility]) Acetaminophen 325 MG / Hydrocodone Dhiraj trate 5 MG Oral Tablet Hydrocodone- Acetaminophen 5-325 MG Hydrocodone-Acetaminophen 5-325 MG 08/17/2019 12:00:00 AM EST active 1 tablet eCW1 ([facility]) Acetaminophen 325 MG / Hydrocodone Dhiraj trate 5 MG Oral Tablet Hydrocodone- Acetaminophen 5-325 MG Hydrocodone-Acetaminophen 5-325 MG 08/17/2019 12:00:00 AM EST active 1 tablet eCW1 ([facility]) Acetaminophen 325 MG / Hydrocodone Dhiraj trate 5 MG Oral Tablet Hydrocodone- Acetaminophen 5-325 MG Hydrocodone-Acetaminophen 5-325 MG 08/17/2019 12:00:00 AM EST 1.0 {tablet} active Hydrocodone -Acetaminophen 5-325 MG eCW1 (Pending Sale To [facility]) Acetaminophen 325 MG / Hydrocodone Dhiraj trate 5 MG Oral Tablet Hydrocodone- Acetaminophen 5-325 MG Hydrocodone-Acetaminophen 5-325 MG 08/17/2019 12:00:00 AM EST 1.0 {tablet} active Hydrocodone -Acetaminophen 5-325 MG eCW1 (Pending Sale To [facility]) Acetaminophen 325 MG / Hydrocodone Dhiraj trate 5 MG Oral Tablet Hydrocodone- Acetaminophen 5-325 MG Hydrocodone-Acetaminophen 5-325 MG 08/17/2019 12:00:00 AM EST 1.0 {tablet} active Hydrocodone -Acetaminophen 5-325 MG eCW1 (Pending Sale To [facility]) Acetaminophen 325 MG / Hydrocodone Dhiraj trate 5 MG Oral Tablet Hydrocodone- Acetaminophen 5-325 MG Hydrocodone-Acetaminophen 5-325 MG 08/17/2019 12:00:00 AM EST 1.0 {tablet} active Hydrocodone -Acetaminophen 5-325 MG eCW1 (Pending Sale To [facility]) Acetaminophen 325 MG / Hydrocodone Dhiraj trate 5 MG Oral Tablet Hydrocodone- Acetaminophen 5-325 MG Hydrocodone-Acetaminophen 5-325 MG 08/17/2019 12:00:00 AM EST 1.0 {tablet} active Hydrocodone -Acetaminophen 5-325 MG eCW1 (Pending Sale To [facility]) Acetaminophen 325 MG / Hydrocodone Dhiraj trate 5 MG Oral Tablet Hydrocodone- Acetaminophen 5-325 MG Hydrocodone-Acetaminophen 5-325 MG 08/17/2019 12:00:00 AM EST 1.0 {tablet} active Hydrocodone -Acetaminophen 5-325 MG eCW1 (Pending Sale To [facility]) Acetaminophen 325 MG / Hydrocodone Dhiraj trate 5 MG Oral Tablet Hydrocodone- Acetaminophen 5-325 MG Hydrocodone-Acetaminophen 5-325 MG 08/17/2019 12:00:00 AM EST 1.0 {tablet} active Hydrocodone -Acetaminophen 5-325 MG eCW1 (Pending Sale To [facility]) Glucagon 3 MG/DOSE Nasal Powder (BAQSIMI ONE PACK) [id number] 07/27/2019 12:00:00 AM EST 1 {each} Nasal active Insulin lo ng-term useType 1 diabetes mellitus with hyperglycemia 1 each by Nasal route as needed [facility] Insulin long-term use Type 1 diabetes mellitus with hyperglyce mily Hydralazine Hydrochloride 50 MG Oral Tab let hydrALAZINE (APRESOLINE) 50 MG tablet hydrALAZINE (APRESOLINE) 50 MG tablet 02/18/2019 12:00:00 AM EDT aborted TK 1 T PO TID [facility] 1.5 ML insulin human, isophane 100 UNT/M L Prefilled Syringe insulin NPH (HUMULIN N,NOVOLIN N) 100 UNIT/ML vial insulin NPH (HUMULIN N,NOVOLIN N) 100 UN IT/ML vial 10/20/2018 12:00:00 AM EST aborted Inject as directed twice daily to MDD 25 units [facility] Acetaminophen 325 MG / Hydrocodone Dhiraj trate 5 MG Oral Tablet HYDROcodone- acetaminophen (LORTAB) 5-325 MG per tablet HYDROcodone-acetaminophen (LORTAB) 5- 325 MG per tablet 06/15/2017 12:00:00 AM EDT abort ed [facility] Continuous Blood Gluc Building Carpenter (KnewtonSTYLE JINA 14 DAY READER) JEANMARIE [phone] Does not apply aborted Type 1 di abetes mellitus with hyperglycemiaInsulin long-term use by Does not apply route [facility] Type 1 diabetes mellitus with hyperglyce mily Insulin long-term use Continuous Blood Gluc Sensor (FREESTYLE JINA 14 DAY SENSOR) [facility] [phone] Does not apply aborted Type 1 diabetes mellitus with hyperglycemiaInsulin long-term use by Does not apply route [facility] Type 1 diabetes mellitus with hyperglyce mily Insulin long-term use Dexcom G5 Mobile Building Carpenter Device [id number] Does no t apply aborted Insulin long-term useType 1 diabetes mellitus with hyperglycemia by Does not apply route [facility] Insulin long-term use Type 1 diabetes mellitus with hyperglyce mily Dexcom G5 Mobile Transmitter [id number] Does not ap ply aborted Insulin long-term useType 1 diabetes mellitus with hyperglycemia by Does not apply route [facility] Insulin long-term use Type 1 diabetes mellitus with hyperglyce mily Insurance Providers Payer name Policy type / Coverage type Policy ID Covered republican ID Covered republican's relationship to oleary Policy Oleary Plan Information MEDICARE [id number] SP [id number] AARP HE[employer] CARE OPTIONS [id number] SP [id number] MEDICARE C [id number] S [id number] AARP O [id number] S [id number] MEDICARE A [id number] Self [id number] AARP U [id number] Self [id number] AARP U [id number] Self [id number] [id number] OTHER B TRANSPLANT Self TRANSPLAN T MEDICARE [id number] Swapna [id number] [facility] [id number] Swapna [id number] MEDICARE [id number] SP [id number] F62 MEDICARE [id number] Swapna [id number] A ANSI-Commercial [id number] ANSI-Commercial [id number] ANSI-Medicare Part B [id number] ANSI-Commercial [id number]-[id number] ANSI-Commercial [id number]-k27c-[id number] ANSI-Medicare Part B [id number] ANSI-Commercial [id number]-o0r2-148o-[id number] ANSI-Commercial [id number]-rgr2-01rv-[id number]-ixo9-69vv-72q8-[id number] ANSI-Medicare Part B [id number] [facility] OPTIONS [id number] SP [id number] ANSI-Commercial [id number] ANSI-Medicare Part B [id number] ANSI-Commercial [id number]-[id number] [id number]-[id number] ANSI-Medicare Part B [id number] ANSI-Commercial [id number]-rw00-7y13-u9ng-[id number] 668j19if-mx14-0t44-j3cs-35289919g11n ANSI-Commercial i403yo2f-3475-11hu-2u0l-qm1ocdek09y9 x098mk0g-0729-18cd-2g5s-xt1xdddz16g1 [facility] OPTIONS [id number] SP [id number] ANSI-Medicare Part B [id number]-[id number] ANSI-Commercial 0s26d3k9-d14o-02v1-a61w-v08vqfw149x3 2w03y1b0-x88r-26v1-z06s-m27bqjb196b5 ANSI-Commercial 4x962ze7-3n7z-6k42-6dy0-[id number] 4q805bp3-9a7h-1u92-3jv4-q07zt4199k30 ANSI-Commercial [id number]-g6dl-6690-c53z-6cm7395ix4s3 576359j4-o2ba-2979-b41i-4cn9076jt6z8 ANSI-Medicare Part B [id number]-82n0-b0vc-[id number] ANSI-Commercial 8x9553zm-s153-447b-66y2-b24u258rpg0i 5c5400bs-t708-070p-78t5-v26r009szt8j [facility] OPTIONS [id number] SP [id number] [employer] -O/P [id number] 18 [id number] MEDICARE -O/P [id number] 18 [id number] ANSI-Commercial [id number]-14m2-gpt0-4k1l753gk786 m60e2t16-66hg-96i8-vcm4-4x4a600jv706 ANSI-Medicare Part B [id number]-euy2-51ok-zeh3-we1s6880j0x7 ANSI-Commercial k5l05jvp-3338-12qc-98g7-4462139q5l60 s9a51gyd-1049-27qq-60i9-4962112h1u74 ANSI-Commercial knuh69j6-4nd4-489h-fz6m-ko96h45ti3p0 wmuj48v9-6ry3-514u-gi4k-lq41a19hf8j8 ANSI-Commercial o26g1p77-u4p8-1659-9xlb-9jp5so585cez g63v2o03-o3b5-0494-4gey-5xx7ln763wsb ANSI-Medicare Part B [id number]-9528-[id number] ANSI-Commercial 729qik63-9b58-6bfg-005o-v568l8000gy5 545arz26-4y67-6lat-866o-m792s2497os4 ANSI-Medicare Part B [id number] 6xxg823k-boig-1176-v2qu-[id number] ANSI-Commercial lh46gr53-n288-9307-j64a-13x67it7t358 kl73oa94-y467-4655-l14z-09g45hn7u634 ANSI-Commercial 2757c46z-5161-434z-29rb-t7ixw7l312z9 5180j39q-2813-715p-50aw-l1nxq0f356l0 ANSI-Medicare Part B [id number]-[id number] m2la13i9-9nj6-5wph-c19d-lr2o02241b1m ANSI-Commercial 7z60x2n2-901z-08a6-2281-1244kf4043cq 6w05s0d2-690c-90f8-0342-0478wb6096ff ANSI-Commercial 772owv6k-1ib3-9320-o1qs-wbt77i3l747q 081ikh8v-5hl4-7912-q2qa-sug68n0h412a ANSI-Commercial 59e7y287-7754-6878-cz40-8d7npdg54phe 40e5m589-2421-1549-bk08-6o7uxjy52jnp ANSI-Medicare Part B [id number]-66y7-o821-863r7ke11c9g ANSI-Medicare Part B [id number]-8i4y-1513-71xe-402xu4981o50 ANSI-Commercial 77x9zr10-8963-3nj5-98dq-2dtu60g60428 85r5eo33-2072-2cf6-55ca-5zel16v61470 ANSI-Commercial 60g1j5v1-ocx4-0699-gu02-62j817v0f163 58k5e9n9-vfa1-0179-nc20-55o684p1v227 ANSI-Commercial 5444l67q-552z-715q-4s34-86d4693169o8 5125n23h-693p-394j-4e54-19u6135188y9 ANSI-Medicare Part B [id number] 9po1j1c5-774n-5979-43e9-10y5pgy123d8 ANSI-Commercial 3u095w18-zfd6-13t8-uw69-3v277472k726 6a652s61-hwk9-66o8-xh49-0i429828i484 [facility] [id number] [facility] C [id number] S [id number] ANSI-Medicare Part B [id number] 38cw992m-946y-38iq-5k16-16t889u9b61i ANSI-Commercial a6913cc6-gu3m-6h81-719z-4xi3jr3v9rc6 d6087xn1-yh9e-9p82-562v-3hy6ox7x7tg8 ANSI-Commercial 1ba3509w-g2g8-2690-112c-i936meztow51 9kv5913s-y1r0-5111-239u-z116rqpuyj75 ANSI-Commercial s02a5od0-tl41-8ze6-9n05-v27n8e0j58p2 m10n8wh9-ot68-2vg8-1u34-e71k5k6p40o6 ANSI-Commercial 4z51l07u-m67j-1zc7-sk59-95075655kr24 5s56m56x-q84b-1tw8-uu11-57468767rb22 ANSI-Medicare Part B [id number]-kv74-3x35-1129-085i816i3t31 ANSI-Commercial 71354986-05ye-5499-b78m-f5t12y4g096j 70365591-05bo-7167-s18z-g7t90e7s802m ANSI-Medicare Part B [id number]-3ocn-0559-65e4w94iyx11 ANSI-Commercial 0zmiwyx9-092h-4940-2k9p-wq370937i463 4fdajao6-545x-1388-1b8x-nz494475k470 ANSI-Medicare Part B [id number]-[id number] ANSI-Commercial fn1w90k2-84po-2j9d-48m9-4lt3yu20m899 xc4k38h9-17kz-3m3f-38w5-8ir0gy80d640 ANSI-Commercial dq253a73-9231-3964-4388-ds68sm33j143 tg165u02-6672-7865-0502-eo56or96v493 ANSI-Medicare Part B [id number] [id number]-m624-4961q4c0dksd ANSI-Commercial t885j370-09r3-385v-kzch-ei446h96k1c2 o330l984-19y4-573g-tomj-ga434a51e3q1 ANSI-Commercial 51z46w6k-n8d4-66a7-h911-661038fr6qx9 64b60b4f-w3f8-62s3-s683-679025xs5db4 AARP HE[employer] CARE OPTIONS [id number] SP [id number] MEDICARE [id number] SP [id number] A MEDICARE [id number] SP [id number] A Aarp Medigap Part B [id number] Self [id number] Medicare [place] Medicare Primary [id number] Self [id number] AARP O [id number] S [id number] MEDICARE C [id number] S [id number] A MEDICARE A [id number] Self [id number] A Bshmo ZFC,Yot,ZFH,Ymb,ZFP Health Maintenance Organization (HMO) [facility] [id number] Family Dependent [id number] [employer] [facility] Medigap Part B [id number] Self [id number] Medicare [facility] Medicare Primary [id number] Self [id number] Bshmo ZFC,Yot,ZFH,Ymb,ZFP Health Maintenance Organization (HMO) [id number] Family Dependent [id number] [employer] [facility] Medigap Part B [id number] Self [id number] Medicare [facility] Medicare Primary [id number] Self [id number] AARP HE[employer] CARE OPTIONS [id number] SP [id number] Aarp Medigap Part B Self [place] Medicare Primary Self HUMANA HMO [id number] SP [id number] FIRST [employer] [id number] SP [id number] HUMANA H [id number] Self [id number] HUMANA PPO [id number] SP [id number] Humana Medigap Part B Self [employer] Medigap Part B Self Medicare [facility] Medicare Primary Self BC/BS Of [place] Commercial Family Depende nt FIRST UNITED [employer] LIFE U [id number] Self [id number] BLUE CROSS BLUE SHIELD-O/P [id number] [employer] S [id number] S [id number] EXCELLUS BCBS [id number] Spo GBH [id number] BCBS GENERIC C [id number] Spouse [id number] BCBS OF [place] [id number] [place] [id number] BCBS GENERIC C [id number] Spouse [id number] EXCELLUS BCBS P [id number] P GBH [id number] BC [place] O [id number] U [id number] A MEDICARE OUTPATIENT M [id number] S [id number] BC IL O [id number] U [id number] MEDICARE OUTPATIENT M [id number] S [id number] BCBS HMO [place] O [id number] S [id number] A Problems, Conditions, and Diagnoses Code Display Name Description Problem Type Effective Dates Data Source(s) J44.1 [id number] COPD exacerbation Problem 07/11/2020 12:00:0 0 AM EST eCW1 (Pending Sale To [facility]) G44.52 [id number] New daily persistent headache Problem 06/22/2020 12:00:00 AM EDT eCW1 (Pending Sale To [facility]) N18.4 Chronic kidney disease stage 4 Chronic kidney di sease, stage 4 (severe) Problem 08/12/2019 12:00:00 AM EST eCW1 ([facility]) I10 Hypertension Hypertension Problem 08/12/2019 12:00:00 A M EST eCW1 (Pending Sale To [facility]) E10.65 Type 1 diabetes mellitus with hyperglyce mily Type 1 diabetes mellitus with hyperglycemia Diagnosis 06/16/2020 10:11:57 AM EDT [facility] I73.9 Peripheral vascular disease, unspecified Peripheral vascular disease, unspecified Diagnosis 03/21/2020 09:44:35 AM EDT [facility] R06.02 Shortness of breath Shortness of breath Diagnosis 0 03/21/2020 09:44:35 AM EDT [facility] I10 Essential (primary) hypertension Essential (primary) h ypertension Diagnosis 03/21/2020 09:44:35 AM EDT [facility] E78.00 Pure hypercholesterolemia, unspecified P ure hypercholesterolemia, unspecified Diagnosis 03/21/2020 09:44:35 AM EDT [facility] N18.6 End stage renal disease End stage renal disease Diagno sis 03/21/2020 09:44:35 AM EDT [facility] Z98.61 Coronary angioplasty status Coronary angioplasty statu s Diagnosis 03/21/2020 09:44:35 AM EDT [facility] Z99.2 Dependence on renal dialysis Dependence on renal dialy sis Diagnosis 01/18/2020 08:07:25 AM EDT [facility] E10.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 Type 1 diabetes mellitus with diabetic c Diagnosis 01/18/2020 08:07:25 AM EDT [facility] D63.1 Anemia in chronic kidney disease Anemia in chron ic kidney disease Diagnosis 01/18/2020 08:07:25 AM EDT [facility] Surgeries/Procedures Procedure Description Date Indications Data Source(s) Duplex Scan Extracranial Arteries, Follow-Up Or Limited Stud y 02/10/2020 12:00:00 AM EDT [facility] ([facility]) DUP-SCAN LXTR ART/ARTL BPGS UNI/LMTD STUDY 02/10/2020 12:00:00 AM EDT [facility] ([facility]) DUPLEX SCAN EXTRACRANIAL ART COMPL BI STUDY 02/10/2020 12:00:00 AM EDT [facility] ([facility]) DUP-SCAN LXTR ART/ARTL BPGS COMPL BI STUDY 02/10/2020 12:00:00 AM EDT [facility] ([facility]) Annual wellness visit, includes a person alized prevention plan of service (pps), subsequent visit 10/30/2019 12:00:00 AM EST eCW 1 (Pending Sale To [facility]) Office Visit, Est Pt., Level 4 PC 10/30/2019 12:00:00 AM EST eCW1 (Pending Sale To [facility]) Office Visit, Est Pt., Level 2 FC 10/30/2019 12:00:00 AM EST eCW1 (Pending Sale To [facility]) GLUCOSE QUANTITATIVE BLOOD XCPT REAGENT STRIP POCT GLUCOSE, DOC KED Routine 10/28/2019 1:50 PM EST 10/28/2019 06:50:00 PM [facility] HEMOGLOBIN GLYCOSYLATED A1C POCT HEMOGLOBIN A1C, DOCKED Routine 10/28/2019 1:43 PM EST 10/28/2019 06:43:00 PM EST [facility] POCT GLUCOSE, DOCKED POCT GLUCOSE, DOCKED Routine 07/27/2019 11:55 AM EST Type 1 diabetes mellitus with hyperglycemia Insulin long-term use 07/27/2019 04:55:00 PM EST Insulin katia g-term useType 1 diabetes mellitus with hyperglycemia [facility] Insulin long-term use Type 1 diabetes mellitus with hyperglyce mily POCT HEMOGLOBIN A1C, DOCKED POCT HEMOGLOBIN A1C, DOCKED Routine 07/27/2019 11:48 AM EST Type 1 diabetes mellitus with hyperglycemia Insulin long-term use 07/27/2019 04:48:00 PM EST Insulin katia g-term useType 1 diabetes mellitus with hyperglycemia [facility] Insulin long-term use Type 1 diabetes mellitus with hyperglyce mily Results ID Date Data Source [id number] 09/10/2020 05:41:00 AM EST [facility] Name Value Range Interpretation Code Description Data Mary rce(s) Supporting Document(s) SARS-CoV-2 (COVID 19) [facility] This lab was ordered by [facility] a nd reported by [facility]. ID Date Data Source [id number] 09/03/2020 03:34:00 AM EST [facility] Name Value Range Interpretation Code Description Data Mary rce(s) Supporting Document(s) SARS coronavirus 2 RNA [Presence] in Res piratory specimen by GABRIELLA with probe detection [facility] This lab was ordered by [facility] a nd reported by [facility]. ID Date Data Source [id number] 08/02/2020 12:54:49 AM EST [facility] Name Value Range Interpretation Code Description Data Mary rce(s) Supporting Document(s) Progress Note [facility] ZPJCAa5pGoOCBqLt83/QUZcfQOJov5DbJWkaHXq3VEwrIIQcQ1IgFOJ6sP8fWTD6UTeXEmNhYaOtVRP3 lbm [file] D+A/4EGq7O+suc7aQAD02Q14IOAk/TiID+CD+BA+Isaías+JX0fsmoV/TpXpY/gN/CY+rkqbFD8Du6Nk1uum 2/oHPb0V6BP3Yc/janett/C7+Bw+nktPrCG5Wa+gOvZF/E9P6BY8jrdUqnT/eMjhQTcEefjtZziHx6ZTGJ6S [file] F0ZkTkJQCaCBA4QASaLlSpHJ4QMr5EXsP3HJW9hVJrAi7DHvy6YHOXEcDvMO4QEGb= ID Date Data Source [id number] 07/28/2020 07:05:21 PM [facility] Name Value Range Interpretation Code Description Data Mary rce(s) Supporting Document(s) Progress Note [facility] RESOMj6qSoEHTcGw24/GFDmiKMUit5TcRDudFDy7FNlzKHCiR4RlIML8vV6aNUF7QGxUKtEjRpTrSHT4 lbm [file] +yx0o3ViRdSLAh/I3yn6e/maoq/MJvXkD6kNqy++Switchboard Operator Receptionist [file] KLsuRnRtFOM5TENlOJIkTUA4DgJeRZ4JHb4OWaM7TCJ4wQZzZv8ZMoNcHSbHVqOaJK7BUPw= ID Date Data Source [id number] 05/24/2020 02:45:14 PM EDT [facility] Name Value Range Interpretation Code Description Data Mary rce(s) Supporting Document(s) Progress Note [facility] WGGGJb7zAkWUPnQj06/BKKxoCFXvy9QiHKokHWc2XCrvSDZwR6JsYMI5xP6fZGM4FRuQEtUtAoNjTND2 lbm [file] rMWVBK6YJIXfSIaKrJjUhgj6Y4LyHL1THyrx// [file] ID Date Data Source [id number] 05/18/2020 01:45:26 PM EDT [facility] Name Value Range Interpretation Code Description Data Mary rce(s) Supporting Document(s) Progress Note [facility] HNMDFu9jHeZIAkFr27/YJVxdWBJny2MuKIyqWNf4BLtfYILfW7LsGFL1wQ0sLTD5STuWRfAvVrUxAFJ7 lbm [file] ID Date Data Source [id number] 05/18/2020 09:25:12 AM EDT [facility] Name Value Range Interpretation Code Description Data Mary rce(s) Supporting Document(s) [facility]QNCiXi48/BMWccRFIrl8WvIBesWIs9NMabOCGuJ9EbXFD2lI4mBCS6YMzOBoDuExHnITA9 lbm [file] EQjhKOHDLw4B ID Date Data Source [id number] 05/02/2020 01:49:37 PM EDT [facility] Name Value Range Interpretation Code Description Data Mary rce(s) Supporting Document(s) Progress Note [facility] BPVKXf9vQpQTQoLv80/VSRymEBAoo8YpJHeuKYt8TOnqVRRdH7ZxOKX0qD9uYJM9WGmQYrKkFzAeVFB6 lbm [file] AgICAgICAgICAgICAgICAgICAgICAgICAgICAgICAg QEAfECTnBHYlWJTkNOGeHJBfJNLwMPNuSN8IYHHtQAVvUKIuDSTzSLBsFRUnINYvQVOhZDTvXUWmXNVj ICAgICAgICAgICAgICAgICAgICAgICAgICAgICAgICAgICAgICAgICAgICAgICAgICAgICAgICAgICAg AABpUVBsDM4LFTKlTPSiRBJuLYCmITNrYMEmAJUyUU AgICAgICAgICAgICAgICAgICAgICAgICAgICAgICAgICAgICAgICAgICAgICAgICAgICAgICAgICAgIC MqYHFbCICxFASeJHCeEITkRO6XHOZxORTlZPUkPAWqTRHmCOHuUFQkCFZuJYRuZEJnDAXtTNYdPKFtOE AgICAgICAgICAgICAgICAgICAgICAgICAgICAgICAg TVKaFOCfMOVbZZVnJVAdUJNaVZZeYGGnFHHmEU1MVIZfDEZlWTAzPGIxRNMuJGHyWIYfNXWiTDJaQQTc ICAgICAgICAgICAgICAgICAgICAgICAgICAgICAgICAgICAgICAgICAgICAgICAgICAgICAgICAgICAg WKSiALFzQWGuRF8ZXKVxMHUtFYFwZOAiSHRuRJCsPD AgICAgICAgICAgICAgICAgICAgICAgICAgICAgICAgICAgICAgICAgICAgICAgICAgICAgICAgICAgIC JjVWNbCNPnLPAdONRrNHSbVKCrIR7WOBBgIRYnQCEiREEjUPEqZRJiGOBkTGYaJZTsTBTtJLDzFTQiAP AgICAgICAgICAgICAgICAgICAgICAgICAgICAgICAg KQOyQYRsRSVwWHPuQUFrPKUmNFUfKROcTJRkGOSuXM6FVREdZKTzXXSwQRGpLBLpEGKzNCVhMEJsVCNp ICAgICAgICAgICAgICAgICAgICAgICAgICAgICAgICAgICAgICAgICAgICAgICAgICAgICAgICAgICAg QBCaSJDiSMYjZMPiXA6MLUInNNDkRPOtVDZrEHYgPX AgICAgICAgICAgICAgICAgICAgICAgICAgICAgICAgICAgICAgICAgICAgICAgICAgICAgICAgICAgIC DtCUFkDPEuGMZsRGTwFKUkDFNzMYQdBA3SKDTlPDQcICUyCEGrVKBfVLBkMKFbTVTmUUVfYGZfXBLgFF AgICAgICAgICAgICAgICAgICAgICAgICAgICAgICAg MIFsOYQgNOWzSZSkQKCoRDXeDLNhMLKoAKOlGCQhEURaMB0ALN10cPErd6M0LVXsQX8touo/Dv9TSIhg zqDhvPLdXU7TViJcSW7bsw2WLzIgZO0mtm8VRIqLToGvK1U8gTSjHZJcIKELUuUfL44tELgdKl81UTse DZMnBnJbCIy5Zu5NYbRwB3ywMWLsDmG1KDPyGeX5KC EdEyI5XGKmReZgLFLdSJHvUICnSFDAEQK6UQBfUaZfPgAkEYJvKNnqIZLHMRLvMVOgDuQpMTgdBU5Jw9 JdqGG4VXx+Nk9WXW0cv8XyHGh3CCIyMU6gsl8NPOrGYrPxA3MdpbW7CUXpKDNyEh2PTLBeXSPvmRX2Mp KaOQZTUjJxK8MmeL92WRHUWl3+DQplbmRvYmoNCjQy LOVol9UqFZd8CN8LBWKkIVw3gAVuGUOcO8Fvv3EuNp23WKSaTjtlOtCcpzQqQXEiN1Pya6KuADPIIMJm qGO0DcR1OpXaJzZhEVC5EAGuPH9fDYmlFP9SYHS7TIxdCCUfWJOeJ1uCOlCrIAFgNADqkMfgXL3PEaEe G0GhqvAckGN0TVFiMAWLAo9+DQplbmRvYmoNCjQzID Gdh1HkXQx0WN4EODZwYExqLP7WGSJavE9qWUwpJV2OErIhZSBaDILMLjOqR86ogXEnYYc9K0QfNlEbWZ VkRmlsZXMgPDwvTmFtZXMgWyBdDQogID4+ID4+ODuiQJ8ROBxhdvHdYTQiNu2ANHRjRMAkCO8hUFExDV TcD6N2cPhoVFUKWwHdR2eufutlIS0dYBBiU697kWwi ttWgBLVrRFZlFb5UCDZrLNP4BAFuwFKyIDTqWUDGCZkdVF3BmIZwBYI6yE3gQTknTLTvILYqC6sFWjIk rAfvIE74hPcxpyQofIQmBBx+Al0UWG9xq1LmFUq9tdUiKIwmARW7OMcwIHFwTVQuGMCgSBE7HVI6RIPV EeAoAEXwPLBoKQnjBFFuERRxwr2BKLCrAGT9YLH5DH AxCKIlWAHjSLvzLIObQTG6RvM0VQMzPQJtEO5HSoIxKOQzBPEtYAqtWJQdWLCxkp7AJSJoAROtAlWlHA BwOUZlHPJwKVfbYJHcKNRuLaO3FDGcGDGdPH5JUnGvBOWjBGFuWcyaSKBqGVVlnj6MZTCjRYTzYfZbHQ SzOGBqMVLbMFxvGJZzLYC9Pow0ULPySGVjPD8IIeIc QZBjFPzrWTZfUIPfLVMxvp0TKJJzIFFlRDsxARGcCODrUHMdHOpmDJZuZBDaIPD8POKeNRMtCQ8ENoDg EDJcKSE0HtWhOFOnRNZzqi2UJJEhZUPyZPP8ZfXvBETaTDRoCJvjZSGvNXN1EQQ7FFQmXHViNX8QHeUt PPQuTEmyXwWpPWIzLUDmiw2KBZRyIGQrLBw6KQYeJF NmDWJiDVyeCTEhXIFdOJU5JOIiSLCkKL9LIfCcHRTaMiM5EXMjXPAfXXRepe2WDJMvPQWkKZtsSgWgQW KfBIIxQEnyJNLnZGD1GzKmJFOdVCLwYV1BClRqGUGlOte7GHweHDVnHMMbzx2AEOHoOQJrCJk1BTJuHH EtUPMsPRdgUBQiQNZ7UHx2ESOxXNXeNT2MMcUcKCIh WtjzRHvoLUJtFSWqvy9FOZLpBPJyRQCjFiRqJVLyOIHoUSpzWZGfUZIkOFH9MMYxHEKwQL5IZbEtVIJy PkV1BAipDKNnHVDlef3KUNHhZTN7JcYiJeCqYOApJGFqVOwvDTHtNLNyCsPeINMhLTFzZW0CKpMcLJUw UHH1TfJxBJUqLFDmcy9QCKPiUHU7ZyilDDSeMWFwNV XuVPxaUKSxFGFtIXA6YSPfOVKpDT2UZuZiHMSbRUL3IMCbWRHiCORmow4REXAbRGH7OBV1PhVkHQXaVU PsWHrfNAVxOPM0WnKtILBiNDAhSJ3SZdPgOIFxBYVySTnoMGYkGRRvtt5TYVUiOAL4MEG1CYRuWPTtGS QmBJaeAYNgSOV2NAsoCBRkWOSvVU1XOfNiHMKlPDJe SMSsONYcNSSexy9ZTGXyVTT9IjC9URHeBYHcJLEuYRytPRKhJDB3RPB3VBRqVBOxPR6COwYnEGTjKMw5 FFyzKMUsWTEqbd2TjLGnzSxekv9CKGxHXi2WgYgvINU8FTtnGf5bhFW1BcMrWWRIPw5JxtOzJAEdBFAP NYutXOAjJXGtDSU3TsYjYMA6IkJbEQQdZTk4A0FxNP Q1TKIfJFS0GnI4QnPyCOC6FEA1KTMeUnS3BtYyQUJmLtU0SopqVLHqWNa+LW9qFDm+Eg5Oj5JzteN1hi FuTEa8Pen7Zn7KMEVTU0IOEq== ID Date Data Source [id number] 03/03/2020 05:42:09 PM EDT [facility] Name Value Range Interpretation Code Description Data Mary rce(s) Supporting Document(s) Progress Note [facility] OFSMWi3kMeIGOgOr48/XZSpbFVJbz5NoESwxFXd2YTvsTNHiX8QgKPL3kL7hPKV9CCzATnXtQbDwMmC0 lbm [file] Isaías/s38xf4lmfKjvC1q4ByQ+uxnn+B8fhWxi3v869BRQ0R15g4hsyG52bE8eF58ukb4R2TL7MofmxO11j [file] FuylE3hbVwZEvxDRO1FW4MWMJOB0JUNj== ID Date Data Source [id number] 03/02/2020 03:14:11 PM EDT [facility] Name Value Range Interpretation Code Description Data Mary rce(s) Supporting Document(s) Progress Note [facility] CHXDQv2jQwSXEsKd42/RNSqmBYFha7JpDKqgWZn5KAhkINSjB6TjDIY9mJ7dQYZ2UKdHIxEePyLgSaY5 lbm [file] T0DFfaDPHrHHHlV1XcEsC0JhMqYcQsXA5JVy2GKgQ3QND1oFSgQh6UInZ5RNuMFqSwSY5FDYb= ID Date Data Source [id number] 02/10/2020 12:07:00 PM EDT [facility] Name Value Range Interpretation Code Description Data Mary rce(s) Supporting Document(s) Carotid Ultrasound Bilateral Laboratory test result [facility] ([facility]) ID Date Data Source [id number] 02/10/2020 12:06:00 PM EDT [facility] ([facility] Name Value Range Interpretation Code Description Data Mary rce(s) Supporting Document(s) Bypass Graft Ultrasound Lower Extremity Bilateral Laboratory test res ult [facility] ([facility]) ID Date Data Source [id number] 01/27/2020 02:30:18 PM EDT [facility] Name Value Range Interpretation Code Description Data Mary rce(s) Supporting Document(s) Progress Note [facility] NKIIJx3wAhAYUkVk52/VVNurUYVrw2KsMDlaTLe7KBdcSTUpM0GsLPI8qE1nMHV1NCeHGfYiRtDoNBWt lbm [file] mhSazz5cIS4vN54ikSiFtBVarmjvsNuTnSHUqfn1UGe29Dc7l3MLv+6q4so2hjmr4uiLYIUfjmO++ROBE edckfe+l2r09Yi881srUjxx0dJFW/L3PWni8T1WOceS3goPPfrzSgq0y+Kinb7Xo/+4NNku+W+IHt6Jq r4cM8rjgCF2joqfHWhrCBD3cvmrzTyh/DjVV8Jzp+5 E5lgwrtrt/Gt+aBG2K8r4gsm3mx32R7dBKtX+rX+/mVieFqIxHN11QkEp/0u0Ywsbub1Uhm515fC8111 I+/4bylk6a/17w8+PiRj4wkrc4aw3wzAy97BPTypbWeKzXbVDLjbx2XFkL1rv4/wabLdcl+ETL0VO1+O LoorZ0xbDs4g65DtdX2aH660MXGYiT/07xE+TbavuS /Qzx6RrjX8TmZdoOFL6ckqnDNuzWIY2yfnifUgX+frF6zrvUzxQ0XIq+J3J7FI4gAkab0rbHMhlGMfqB u/M21s4Ra4+4NPk+2W+5Gu0KkvIa8cYInCZhPfiqupZICwLKnlsh7KEzN3bo83nltSomh0Az0cB0nfh3 //H5nTKe9PZjPcZTD2fjXlpI6INC4ya0GoLMhrFVQu ST9bds4XUCC2UN5KNTFzLI5GoXCfE7VkM7JZAqCnURYqJWWaZD45TKEwLWBRGGejOIUeM9Bmq505tpWy vjGxGHQdYd7NEWQdJG3SMKQvEZDxvLRpTVUkLUXdBgS8DPOsYHuuYRVbN9CfvgMmawQwXCD2RZCyDc2M IEZvVY6Pdb53zIA5RGZvPgRzZHGryxNgLLTjkuX8ZW 4ZAzQmBZE1kYJrNezWDK2AHRQczFSeMQ1MNJKneAVpHI5+DQogID4+VTubqzVfHmwXOlXuLIUdo7ZaHN hsATj4J3DehYJbduGzEpzygHOOQXNkUBVyI3erhup2wLYrILVrTw6ALlHeb1XwRRQeDCmJlhNw262jQu J9X2D/sH8rLY7dshKBHCKrmcIDS2+VnIa5GvDFO3U1 0lgjOZm/T6N34VGGcB2SGsDT4nJujeJRUO9+Ac9iCobnlM+h2wFEtdHN7L/XzMtIza/TRADE MARK ATTORNEY/+hjqfFkTvt 1PLhUmyO72t6qxhe12AWQ6kv0/ez+ZfFpfrPZLq9+t1ddmjorAmoHk75g/5py7c0PDut5//6b8ZoobA7 7If12akZ3YuAAKRieVzOQPnd/LPTHS4FkdcLSAdXrP kWGBd2PkeXjq9+ai6qrz1uksfxyzUugWpfjNmpFkWeTLz30Dpa38ztdUewkCEXzTuRvzyLtdnZ919Sfo e3ArvTlF1hVTi30YmkFCh90tbJ/POOUDFmv8sSnPSqO0GHpEczEIaUt1++0/arqXp/dqeHQZaErtsrjS 2UIHgYZrEDLyWBo/ghCrPhxymnnaAJtc5vVXgMCpC+ 2YyFL0Bb6jIcCAY5JAPFCeTypKjKNLLyWkjIqJfkmNqmoTSipfZ+uvY2gbLPNkd+qLJM7HHC8tRYTnid CAyUf8cGR1gZhqdNKCgFhmfKoeYbwuftU7j6Zx05xtxUsYLX9vr+5+KjsFKyS5+EUGAcoLoJHqez9T16 UmNNrvHJWrdFTDroqvHu7eSQq3Arf5ssGcuYh+vjRR 5Zf0sXI8jqJIHvPXkuqRXhokoDKtVEyWwR2lAAVc93eSZUQC2HeVzxQtVvtGiPDnxEJYq8DzU65EPL2f dSysakp2pX9hA6oYTenHnZRCm9ZgW77PBUw62ijumX8TocGi7WnD+ZK6W8oIi+2iSI5Jtaqx7xepnm10 6yUk1jcUtphU0gVGj6W6eZ9Dc/+ybt314kbpi4hyq+ r0Msg5l03E8MhBg7BcRc+9pmiwdp4AkEWkbxvj++Switchboard Operator Receptionist+ezI+XWAKam65v1r1oEDanG4PPDQoE+GeqsZkW SVkCnRr4wxOgfX0jHR6Xn+ZYvR+87U6xqSEzl+V6jNUET2hJSW8k8unMVxNOcvUct3Q57GYNbHti8UoO 1ySbTlqRvO6v3bWtsdTpxA5J0J79enMRykpj3rLD6+ XukmJUfplj0XW6km2gH/Ww8ATEF3oiiV91Uy2ABFj7hjzYg71Ij4KBXFqbCUD6pNvc5hbaXzL6d+rgPc 9yOoSmANV8BJ3hqriPQAzJ2hArkssruMGW5B88pvFSzxy/7sShFquNqt5/oCylAEQTS3O25gMH6bMcW6 Xqs19Ze2+PdWeL3h8G3TP29vg7H9WA44uz2bt6v5FT [file] ICAgICAgICAgICAgICAgICAgICAgICAgICAgICAgICAgICAgICAgICAgICAgICAgICAgICAgICAgICAg ICAgICAgICAgICAgICAgICAgICAgICAgICANCiAgIC AgICAgICAgICAgICAgICAgICAgICAgICAgICAgICAgICAgICAgICAgICAgICAgICAgICAgICAgICAgIC AgICAgICAgICAgICAgICAgICAgICAgICAgICAgICAgICAgICANCiAgICAgICAgICAgICAgICAgICAgIC AgICAgICAgICAgICAgICAgICAgICAgICAgICAgICAg ICAgICAgICAgICAgICAgICAgICAgICAgICAgICAgICAgICAgICAgICAgICAgICANCiAgICAgICAgICAg ICAgICAgICAgICAgICAgICAgICAgICAgICAgICAgICAgICAgICAgICAgICAgICAgICAgICAgICAgICAg ICAgICAgICAgICAgICAgICAgICAgICAgICAgICANCi AgICAgICAgICAgICAgICAgICAgICAgICAgICAgICAgICAgICAgICAgICAgICAgICAgICAgICAgICAgIC AgICAgICAgICAgICAgICAgICAgICAgICAgICAgICAgICAgICAgICANCiAgICAgICAgICAgICAgICAgIC AgICAgICAgICAgICAgICAgICAgICAgICAgICAgICAg ICAgICAgICAgICAgICAgICAgICAgICAgICAgICAgICAgICAgICAgICAgICAgICAgICANCiAgICAgICAg ICAgICAgICAgICAgICAgICAgICAgICAgICAgICAgICAgICAgICAgICAgICAgICAgICAgICAgICAgICAg ICAgICAgICAgICAgICAgICAgICAgICAgICAgICAgIC ANCiAgICAgICAgICAgICAgICAgICAgICAgICAgICAgICAgICAgICAgICAgICAgICAgICAgICAgICAgIC AgICAgICAgICAgICAgICAgICAgICAgICAgICAgICAgICAgICAgICAgICANCiAgICAgICAgICAgICAgIC AgICAgICAgICAgICAgICAgICAgICAgICAgICAgICAg ICAgICAgICAgICAgICAgICAgICAgICAgICAgICAgICAgICAgICAgICAgICAgICAgICAgICANCiAgICAg ICAgICAgICAgICAgICAgICAgICAgICAgICAgICAgICAgICAgICAgICAgICAgICAgICAgICAgICAgICAg ICAgICAgICAgICAgICAgICAgICAgICAgICAgICAgIC AgICANCjw/gNEyF5iyeHPbxqP1Z4raNg7RUy1LPV3ra1MlGPEoZUvcvgYlZtaAYmQdQXKdNchLOgm4ZZ yeAF1UzHHbR0JjW5FgOChkHG9SOBIeFDUjfUExLVKiDQPmLvL8UPJaQPebBX1OqFWuHSkqHXPdDAIxCd AwIFIgOSAwIFIgMTEgMCBSIDEzIDAgUiAxNSAwIFIg VLhjIUFILQE5JJVtSoYbUGSoLPLuAH2GEDNtS801szFvQS4OAh0MYnDfJK3myu3ZXwrzWBYxRxzHHcv5 KWmjLT1CiIUrlFStQKUhWUOLGsVfK3qzf1YtTvurVGNNRQaqOZ0Ij6VbdYRgKLa+Ok7AYS8ap1YuTZkl GCAlSJ0ydf9KDBuFWfPoV5HeuMgrZEMht4lsRYUwFE 9zgPQoRNS6BLJjXR7pOUDPCSszuB1pLiitUUPpTAPtBA1hZL4eJBKhDPDfYpFoBCKVJB2IDNFdFOKxbD HdIJJrXDZOVL1YDSghVBX1BMHoikIucXEdPHnaQQ2FSVHtltWhUletJQHOLCu+Gv0WPQ9wg0NjQGs4RG AfKW0bby5TOOkDFmOlZ6E9lMQcB4H1RQqpXe2POQUy FFMiIwEkWLZJWHkwCR1LZR7vawS6RT5JuVOpNBQdXRHkfDSnKJv4G12amBCuTAfdIG4PZIA+Law+Pg0K HAIqBXJkUGLjFmRtCWVRQjKyB0NwX8DKu2RmZ3AtCO42xEujagCgGNpqMO8RQN2xYKNvZTAYNF3RrTCk nZ4limEqLIOdKWPHEgBzL10klTDcSSSzUWM7TGLmJp 9QYEMbP6SuqyQkuKqjpkQdGIXrDCPMFJ3WAIwjthUntZSrlMojFR61wGtcWH0TXo9EEbPsQT2gve6XmY CpFv3YRZA7OK5EEQMtZPMsDYLqFDE7OLIhLmJbOZsaIHMoLSZhEDV5CTLnYHZnBB4USsDzQDGpNPRuWt VsXVZqUIPesz0UNKPcGQS3Rqe6QAXsSXFxGWLkKDdg YKVvOPVtSLJ9MCPkDPCwPZ5JEjGfVEYtTWWdWLgrBUWpWXBijk1HPYMoDCTrRkT3WTXgAVMqGUJxCKqb QMJgISI9WKM4RSDhZAVmJQ4PQtUoRMMsTXX9GFohHMCdRJHtgq1UULAzKMLlDTIhYcToWVBrIYTwDDaz MMIrZJK8JkU5BJBcGIJzDQ9ZSfByDUFcRED5KKIvZW DzVWVuvo0AKWZbDMAmIin7RsOcOHBgXOGbGXffFMMfSJT8CXQ2ELQnOIScRZ2MPyDwDHVvRBMuIJIoCC EoVKWvee6NBRQgANXdZBU9IzZeJAUrENPfULypGZAhUMY1Zpw3HNJlCNCfCB8UFlQkEQCnOxG2HVMpZW JgBRNrqb5VHWSgHXEpLof3FVLoMGKsQTPwWKhfEJMh IDO3JPV8SMEgMPUjYY6BNoVhIBUfFjA7QODhEUEyZWVgzn6QZJWwJQXmDJMjMEPtEABiUERvNGbaJNQv HYB0IwO7MFYeOBCuOI3STtOlMWJiSmk9KKIlSDObAUFsax8BHFQdKIYmDGztBlHhTBZjNTHvTDkxOAVi HLChNRi8DJIlNFXhEK5FCzMvPQJhObLgCBXpMQEfAN Hqis8LEXAoROIvPER0UwWxXSQmUDBaZCysFNDdIAUsRHC2KUEsFPQkWL3IKyQbRSHoHUG0ItNmXXEfPN Mdye9KRQRqITN9KtJ8UGAjSKHmDHFbRIszBPBcXZDxAto4QERaCDAwVL0IMkEzSIUuATN7MDxqYFYfXM Ndww5TJDCbWSM6Rgc0EXNvDLWjOIUfQWipHEOdMXG8 WcM0CQBzKCMgDH5YCbGsBTNpOWT9MgDaAAKaLAMtig2YAWCbXUG4ABGgTUQaZXVcJQYdCXokGQQxQQQ0 OSIcYIFxEALcQS0YKtBkSGNxAKciVPThKYZeWWGqir7AWXQeQKG6AbO8QQKgDKYyPDHpULpvFZEnHDA5 QmC4PNYjOQYnBH9QWbFlTYrkIBEKUvg6LJdvT2m3FY D0JV8OB4Lly5UyBNNnFIXNGZmyWS0clzApISCiPm7DH7wWLkwmKVRpOrB2PZGsUxUmJsNtCET1BCDsHB NjYiXiZCL9Rc3oSQL6TTUpSMrmVPWvB4TpSCZ0XRtlGLN3KGCmCqGtGVn7NdUpOT7QCk0UFoB7XKN7pX XwLr7WHHp8JzcFKyCtID9QARg= ID Date Data Source [id number] 01/15/2020 12:22:08 AM EDT [facility] Name Value Range Interpretation Code Description Data Mary rce(s) Supporting Document(s) Progress Note [facility] TOZURg2rEgEXDzPr06/MUYiiVWEgd2AxKBdlOVn5XRjtEGKjI9ClNIU3nW1hPUL7KSwESlVbFsQnMOQ3 lbm [file] cQdd24FizS7ydOG8MLuNkKrRj5ShZSqu5iWfUBTzaO1M7n6FJC8VQRNdvJJhB2bKOV7pHMpLx0R5+Madyson 5cPDAmhcboMgEpJUtvhQn3HuSwxIxKGsYsh09HCylD FgCkEy2effuOiqQJrxShaMR3aNkYioV0iTl8xtBAU5JxUn6u8/brazer induction/fQYX3PhptMiM4Plj1NKsPQNjNO [file] 1wPWTB/J7gyEj54+if0bUyBkJRf8WixKwLdNnOoeKat2k5SkWrmSz6tNMjdZZWzPogYiq5k5e/0K+manager insurance [file] Y94P87LNPe/TiID+CD+BA+Isaías+ET8ahcpX/TpXpY/gN/CY+otxpEU0Dw2Jr0juh4/bFRm9E0WJ2Hz/janett/ C7+Bw+zoaHgNT9Lm+gOvZF/Z7J9LH7mzzNqlZ/jFgyWWpElsftTilXd9FQKB6EWk+y2vuFzetJsI9szb L03ACpUWwqJsykIO3wNVwnohMvyXFYEXF8qG2FwBng dE9G0plEpQtX2289Cc5ZK+M4NpebhdHJoSBlTAGown1b5AsIjicwljJNN6NunZU9nSy8cNDQTuEX3DpS pZ51cqjp6ZNq7ABVnFKdToG6QSjO5wy4LzDBnCQTGNkNSnb2iyQXST9EfXYke3Ggd6wWCiXzf5QRKHvS RpUh7kOfwQ85baC2jnpuMxuS8FMBHEgJPWKDSSFNBd R3derxCTSgBWPwmjjx1rrzDagwnuddhIhzrNNXAohfvDAsAGoZNH0CI6zkubf2CCPrI9Zx8HohaqjwmO jq87KrESnE7fGdffiWhlliRH1rNmRbOsN1zJgejPknPTvd98gMpwjP82trTkMvlsCVcmDCUaHHyKvUme 7wZHothWmmNBtJSBrpRRuhKVmTyg8zph5Pgagva3dq 6uSPSKwaabflTTjtTW+IWZDzACQNEIlxz6I7tKQUIoivLTLdFSM4ITWQCmxSQOUV8uahXzpi037EVYIS [file] ICAgICAgICAgICAgICAgICAgICAgICAgICAgICAgICAgICAgICAgICAgICAgICAgICAgICAgICAgICAg ICAgICAgICAgICAgICAgICAgICAgDQogICAgICAgIC AgICAgICAgICAgICAgICAgICAgICAgICAgICAgICAgICAgICAgICAgICAgICAgICAgICAgICAgICAgIC AgICAgICAgICAgICAgICAgICAgICAgICAgICAgICAgDQogICAgICAgICAgICAgICAgICAgICAgICAgIC AgICAgICAgICAgICAgICAgICAgICAgICAgICAgICAg ICAgICAgICAgICAgICAgICAgICAgICAgICAgICAgICAgICAgICAgICAgDQogICAgICAgICAgICAgICAg ICAgICAgICAgICAgICAgICAgICAgICAgICAgICAgICAgICAgICAgICAgICAgICAgICAgICAgICAgICAg ICAgICAgICAgICAgICAgICAgICAgICAgDQogICAgIC AgICAgICAgICAgICAgICAgICAgICAgICAgICAgICAgICAgICAgICAgICAgICAgICAgICAgICAgICAgIC AgICAgICAgICAgICAgICAgICAgICAgICAgICAgICAgICAgDQogICAgICAgICAgICAgICAgICAgICAgIC AgICAgICAgICAgICAgICAgICAgICAgICAgICAgICAg ICAgICAgICAgICAgICAgICAgICAgICAgICAgICAgICAgICAgICAgICAgICAgDQogICAgICAgICAgICAg ICAgICAgICAgICAgICAgICAgICAgICAgICAgICAgICAgICAgICAgICAgICAgICAgICAgICAgICAgICAg ICAgICAgICAgICAgICAgICAgICAgICAgICAgDQogIC AgICAgICAgICAgICAgICAgICAgICAgICAgICAgICAgICAgICAgICAgICAgICAgICAgICAgICAgICAgIC AgICAgICAgICAgICAgICAgICAgICAgICAgICAgICAgICAgICAgDQogICAgICAgICAgICAgICAgICAgIC AgICAgICAgICAgICAgICAgICAgICAgICAgICAgICAg ICAgICAgICAgICAgICAgICAgICAgICAgICAgICAgICAgICAgICAgICAgICAgICAgDQogICAgICAgICAg ICAgICAgICAgICAgICAgICAgICAgICAgICAgICAgICAgICAgICAgICAgICAgICAgICAgICAgICAgICAg ICAgICAgICAgICAgICAgICAgICAgICAgICAgICAgDQ t0Y2daNYXxWUVlUL8rFAi3Si1+GVwLMmVhELH2fjNdkH4XED4al0TvZOthUKTcw4GvGVl9TN7IRARqEN ffJH7TAZltwm0HNBJpGXOzaYTBz6tyGrDjPCR6PZKnWomaEW5TFQNnM9rwuiZlDSGrXMBPARqgBSHYUJ uqJZPPDJJgBXFsImFdSzQyYVJdMUDqKBGEQYM3GHTu JoXsROpqYA5Ma0GzpBK4TQw+Vn7GJJ5la7ZdSEirUMThCA2geb4APFrRLdLtM8UyezB6GVMgJHYbCm0A VLYrICCpgCK4NZDlMSGNUmQsZ1NxeY31XTYFSq9+GBuelsFhRuaMTcRkJBKiq6MvNWy4WZ0CCWAnGGe8 lQZoHJJrN6Mvd6NrAg16DTWoDovvVo3gXMB0okTGJM v0sJRwWPFmtlyvHEDlXNVkUr5oXI1lLNEnWGQhDmYrWDMGMZ6XPGAsXNNkdQZbFIYjUGTFAY5XMKueGC P5QHUxjhLuhEAzRAtrNG6DPWKpeyOqOllwAFXJRHc+Af2OJH3ac9QuVAv9JXNtLW8fom0YLYbJArQhR3 D5qLNzI6S2WLnzPv5JOXOvUKEvHubmOGUKKZcrEM0Z TX3rseY7YY2XkHPiHLXvRFNpfDTbLRv8Z36fyGSrRWuqZJ7ISLZ+Law+Nk3GBAZiPKUcPURyDtXxPPRT RvDrH1AlY4GKl0ChB4WwAO78hIdunlAoPSeuQN8GBZ2jKYPeAFEFBJ5XrLYkcG5txwYvQRSrMNTDYuSt N03clZNwFAJvQGK6QNKyEa6QJCVqF6LqwvSghHydru YbYFJxPTOLMX6IEUcvgpKpqGIloCwaVG90lCfsKA0LIl9NYjUeWB0usx8GbLRvVk1ZPQC4Cf1VPACjZG RjIIPgBUR8OSJzGgDeNGkhWQHuAEFmLET7VTHiHRIhHV6FXhQlAPHqNYE7TXmuNYXgJWVsao8VIADjHF D3KhG2BZUdUVHaSTWbAGbgQDVuHJJeRHC0JZSsIFWi WU5MQzJpECYwASG6SdEpHVWoKQOukz2PLMQpRJZaJEpiZYKdRRCnPTSpIMdzZBFyBZD6ZeA0KWVfMPCe BG5KDoRdNGIeJAu7CdMnVVWhJJMcvv7HRNXxTMPrHMR7TLCjWZGbYRYkXBuhXUPvGGUeDNzuSPZbOPOq RN8BPwZrAEQfPLKqVVhhYVJrKKPobo9XWBLtXBDbYI FkYbPmVCEnOCUsPPpcEMAfSRU1BnYoCSUhAGIzNM3CGlNlSFDcOYs9HhdqXUTePRLcnt9PHEQcZPTmBK Y8PhUpBSStIPZoJYzvZZZaDUTiHAF1EVIvUKXwUF5JQdNbHECwGsYuCcmjJQPxQYZrpx0KJWKhOXLiNr F1CqQaVXFaTHQiRJgpYVYsBYSkRvEnGZRmMPGmXI0B CeDkYBTgSkB8BBRcGYKxNHFoyw5LBTHkYAFzWgV0SmOfAJOwRFHsDEjwUGWpFHV8VqZrWPVgCTReDI8P VyXlPVWpIbZ7ABAeEAFvSHCamw2XNVUxWJWpYAKqZsMfGDTgITUpWTdcYZBfKDC2ZPHrKJCnJWXdYO0Z LkWvVARdScZ3WJolDIMxZAPmih0LSEUaWHBrAza5Op RoIXEzHMKaMKaqQKXaKPF2VkD1BDQbEQBfKR2YNdNdPANiYwinJSJcSVAwXBMolo7FMBMcXOEiFFIkYE QtENEoNVRuVQtoYMMiKBO0BTC0JFSdJGSuSR6BRoOmKLThSzg4ZQGiOJUcTUTfoy5EOJFqRET3EtY2KE CbOCKdEOKqPThzHEMqYMEiAUp0DYBvWENdAL9LEtDx GYKhKSPjQOKfYZUiKJPlja7UTXIiKVH9UNYkVBTyMIQvNVClPScjQQUkLXV7SEn4SWYrDHWfAX0LKmLt WKAyBLL2UIEzRRGsHRIvlg0DXJUaQIU2YaE3MAWuYMDiEVRhMRgwAAQoQHE0GIF4PXOhSGJeMF0RZhWs CJDwRCX1GIGuIOZeENBsbs2AyBEviCixso6KWMcRXv 0VyBaqDGXsTIlgJh7fzWB8FHJpUBFRZj0OvvAiNASxDLNKVRcpOBLeXFZmMXL4MSCsHIZoBCAqSNYrQd OvUEHaVYG8SVjaZySfXoS3WLV6YQrlEKW3CZZ9HXO3BFUbJdVrRvNzHhZ8JzQhNEV+HD2iRTs+Pg0Kc3 HhpwF0mgNdNYr2Dyr5Ci3RIEFGU7IFZo== ID Date Data Source [id number] 10/30/2019 09:41:01 AM [facility] Name Value Range Interpretation Code Description Data Mary rce(s) Supporting Document(s) Progress Note [facility] QGEPZi5mRqFZRzFw20/LXWwqAUVji5XhWXgxUFn2SAgrNSUoO8EoPXN7oP0oJMD4WUqQFoHnShPzXkRw lbm [file] [id number] ID Date Data Source [id number] 10/28/2019 01:55:32 PM [facility] Name Value Range Interpretation Code Description Data Mary rce(s) Supporting Document(s) Glucose [Mass/volume] in Capillary blood by Glucometer 224 mg/dL 70- 140 H [facility] ID Date Data Source [id number] 10/28/2019 02:01:00 PM [facility] Value Range Interpretation Code Description Data Mary rce(s) Supporting Document(s) Hemoglobin A1c/Hemoglobin.total in Blood 8.6 % 4.0-6.0 H [facility] Glucose mean value [Mass/volume] in Blood Estimated fr om glycated hemoglobin 200 mg/dL <126 H [facility] ID Date Data Source [id number] 07/27/2019 04:49:13 PM [facility] Value Range Interpretation Code Description Data Mary rce(s) Supporting Document(s) Progress Note [facility] PFJXTq3eVnJNBePy36/XWAeoKXLho0BuXPrlYNh8AEchBOUaF6YxWDP9sV8zYLR4JCmUVfJbFNtrVSB0 lbm NcWfpEKbHpGBPoWfjWZgKmHAsgOlrxiMOeGZ9WbID4FERxL05tCXYdXXTaM3WdBZNwLGx+Bm4QWUNapC NyAJ0IPntL7UedPeeTOJ8u2Z5oMnP5zIKfylsXCQXtwOVuEUGVf0n0vpB0tOU2oH0Z/q0J4uoy93E4lG ehm9GWQ/cSaXd6pTMlrOm/l1yYWYO3R12/pl/jVKuL szj1RqXkIrA54+eb7NEZsNu9yKHl/2r8+gi4F2vh20I4HzHm70fVQnrNzVM9wGw7bn9/V40/tw92emUJ zQL0/QIcTMAoLqBLXOwj+HKRazKZCFLZc06HJHMQNfBRt8gYU7mkf/MVYJVDYZMTj26DVApF4dW2RoJd GZCySCKBver3XOOJCjfx6ZVi9uX2y5U+Gc3646pVt4 r24+Zlphwi9/9UOUO7DrJfiIbnby33ubPMExT4NoNxFjDGuQkm5Dk0i+AIDAN/KgD8Kc7WV/jluXBHTiLU [file] KdXmUjRxPSWhZfMoDsobL8SfFF3aUPAAFe2+PAdjoMLvjUjdIABHSiG6JND6LLqvCIWXBt8E ID Date Data Source [id number] 07/27/2019 04:49:08 PM [facility] Name Value Range Interpretation Code Description Data Mary rce(s) Supporting Document(s) Progress Note [facility] MJNBQz2iSkCZCuVk49/DTSeaXDHgt0IlWFhtFVm5OOnmVTEqG3ShJVS5nJ9dWYO6YGxRDuXvNOsmAAE7 lbm [file] Ji4wpWqcuvkINOojv8l1ij20ao1KPkG4nkI96UzDupjT79TE/YQl/TRADE MARK ATTORNEY+gb8KTAsw6+Ng7TeisgWqndVx [file] ICAgICAgICAgICAgICAgICAgICAgICAgICAgICAgICAgICAgICAgICAgICAgICAgICANCiAgICAgICAg ICAgICAgICAgICAgICAgICAgICAgICAgICAgICAgIC AgICAgICAgICAgICAgICAgICAgICAgICAgICAgICAgICAgICAgICAgICAgICAgICAgICAgICAgICAgIC ANCiAgICAgICAgICAgICAgICAgICAgICAgICAgICAgICAgICAgICAgICAgICAgICAgICAgICAgICAgIC AgICAgICAgICAgICAgICAgICAgICAgICAgICAgICAg ICAgICAgICAgICANCiAgICAgICAgICAgICAgICAgICAgICAgICAgICAgICAgICAgICAgICAgICAgICAg ICAgICAgICAgICAgICAgICAgICAgICAgICAgICAgICAgICAgICAgICAgICAgICAgICAgICANCiAgICAg ICAgICAgICAgICAgICAgICAgICAgICAgICAgICAgIC AgICAgICAgICAgICAgICAgICAgICAgICAgICAgICAgICAgICAgICAgICAgICAgICAgICAgICAgICAgIC AgICANCiAgICAgICAgICAgICAgICAgICAgICAgICAgICAgICAgICAgICAgICAgICAgICAgICAgICAgIC AgICAgICAgICAgICAgICAgICAgICAgICAgICAgICAg ICAgICAgICAgICAgICANCiAgICAgICAgICAgICAgICAgICAgICAgICAgICAgICAgICAgICAgICAgICAg ICAgICAgICAgICAgICAgICAgICAgICAgICAgICAgICAgICAgICAgICAgICAgICAgICAgICAgICANCiAg ICAgICAgICAgICAgICAgICAgICAgICAgICAgICAgIC AgICAgICAgICAgICAgICAgICAgICAgICAgICAgICAgICAgICAgICAgICAgICAgICAgICAgICAgICAgIC AgICAgICANCiAgICAgICAgICAgICAgICAgICAgICAgICAgICAgICAgICAgICAgICAgICAgICAgICAgIC AgICAgICAgICAgICAgICAgICAgICAgICAgICAgICAg ICAgICAgICAgICAgICAgICANCiAgICAgICAgICAgICAgICAgICAgICAgICAgICAgICAgICAgICAgICAg ICAgICAgICAgICAgICAgICAgICAgICAgICAgICAgICAgICAgICAgICAgICAgICAgICAgICAgICAgICAN Cjw/cSAiL7apgFFwkrF3M1ltGu3OJm1YNR0be3RdOV XsGJdwjzHuOzvMYfTyUEXyQhbALjy1HViyAA7RbYUaM8KoH4JuFRmfXN0RHMCdDXSwgFEaVHXaYYWzKc I1IZWsNKoxWG1AjJByJCatOUJqECJmDvFeDGJaZUGsSWUrPRRmRJJSSWZjNLPuPlMiIGCgNQQhTQytGC QUXSY9GIApIeHcVJHpNILqAyNpXVIHLY2VIsWmB6Kw zX38QYNyQNx+Ps2VMV6sg1PbCOc8KUZjAE7jha5ULNtUIcHeD7OulzA0DUAgNDBwSb3JJOVgZSOroQF5 CULfNSCNHlSyZ5SmnC40PEIQMb7+BVjlqsMgCarDZzSnVWRnu7LbXHq2SA7SKSIhKHz1mCCdVAMtP6Ot s4QcEv83UDVfWeiaIlYiorNhLGRoL1Woq1ZsXFQSFX MozVUmJO8pME6aVYT9TLYoVdRoTNWJKT8RTUGcUSKkvGKqEALzHVANRW7TTJbaZMO0TRDopwFvfPAhFE qxGQ0BLVKbafQgBRSfEIURPZv+Sw5SZW6cm8JySIj0OhNzMU0ovs9GUDgEFcAjO6A6dRPeX6R1IJaxPg 6NSXOwEEEbEqizBLIWVVlvYN9IKO4zklX2YY6SsATu TDVyJJGlrKNqNNo5T67mgFRdRIxaJL3MGUK+Law+Dv2JPGTbHYTqNKWrFjVfVIYBSfNyP9AeG6PZe8Ge T2SaFW08iOxvzqLzPBnvSH0HAR1vBSDiUWNTXA4OyHYhyZ4lccS7PWHnUOYICxTyW72niWDbJRZoKBA5 DQBhBx5XSKBdB8NmhzCmjCkvrwJxRJDfNCTPMB5WTA wgaoRpuXYaeEmvFX81iNbxHS5ZXd7QTeXfGK1lwa7SjWRsGp6YCQU8Ww5PTLIyMLDyUEReAQM2NBHsVd GgJFtjWBZzQFHnIWR9JGVrVZWjZP8KPfDtQGMjZOAmSRIkLMPfYOXcnc9EQZNfNDI1VMLiJwZyIYArPP SuSOrgJQYnWFUuWVE8YUYvAYXjGC1GIyJoGURbHQNv DyGfNPFrGYSdnq5WLADdFZHtJrU8TtWaSFLyTHSbMCrmDJMjTSI1LiH5CHMnVATaRL8XRzUjAAFyRTO7 LiNzLPJdGGZtep9JBDJwLUGsXVv6RPXdHBEnHFSaFMesKTAmBDH8OKe2MFGgPZJgNB8HAiYcWVKvJFWw BXmoALBhCKGguc5WBJIsHFWmRbHyINKnCJOvRQMvXI qhEBLoYUF7OIOiNGSuHYCjSP8SJfQfCSDfAHW5DtowYTTvBHTogz3MVLQgBHUdBKa5BzTxCPDjZZZaBV ccTXVqWRC7IVLzNCIfSLMfJM5YNeAyZJOuAdEeTUQjFDMpWBAoig0OJSQoEJZkGjJpYrOdLIZcLKEdJP jcFKJcUBM0QZZ5ESTeSCLpRM4BNhBeMBUxWfVnUyNa SZCzKOJnwn4OQWSgYIFiGck6UGKkCQQmIDQdTTtzHRXjPEK0XTWlKDIfSAWyHM7WUcWqZTQfRwi4DBFi RJQeAOObvo3TRASqEUJbNHbmYXIkNJZjACObTNidDVFeDZUzHIhjTQBmILOiWZ1FZnQkSERvVeOyPykq POZqSWGlow3ZISSpQQTcIHR9XWSuZHQsNLRgLTuzSE OoQUEzYgAlMBNjKUJqBK8OPlDqHXRpOnH5UsYgNGWiVFXdms6SOWGnONXaTqWtKDFsJDCeALUcPHpuDM ViWRV7BWZbYYYwWRTaRT1SFzMiTVIcDMUcZzPiVYCiKEBibl9SSKXcRUU8YKZ2JEZoSLOrVXVvBXmbRM FyTPC5HYY5WAWpWQOvPC8IFbEzLXCsXRE4JrKfDEPn GMQwka5XJRUpFCU6TEhmZNNtGLTnKZHnGFyxGRTeOIQ6VGAuEMOoDYGuYF3AJeTfKFVoNZYyBOEoRHKg VNUswu1QDCZkMYF5IiO4VwTeFGPzERYxCFgpFYHpGIQ1KXd4WTEbCRZsYV1VYtVeCKRuQDcyRumvADKl LMGzwx9SKAVxWFA2VFEqIHQpNKXaEBDuOMo5alOcwT BzNHr5CA8MR6JcdfMmNHUDKo2Xx362LXXcUTNcCb6AZ6bxJt1bNWPpXCWFLc9EPDk0OTRnMjP5V2LqNk y3GIDsA7D8GSwkBkNdMWOqKUF2BMQ+TPglIUEkQXFeMMIdFKq6ZtBqURq3ZJBnLuDdWqL8WgVhBj4tWO ANCj4+VSejoKGdgNlhFQSKYvZ3XsMpLUlsPBEYZn7T ID Date Data Source [id number] 07/27/2019 12:47:55 PM [facility] Name Value Range Interpretation Code Description Data Mary rce(s) Supporting Document(s) Glucose [Mass/volume] in Capillary blood by Glucometer 139 mg/dL 70- 140 [facility] ID Date Data Source [id number] 07/27/2019 12:03:56 PM [facility] Name Value Range Interpretation Code Description Data Mary rce(s) Supporting Document(s) Hemoglobin A1c/Hemoglobin.total in Blood 7.4 % 4.0-6.0 H [facility] Glucose mean value [Mass/volume] in Blood Estimated fr om glycated hemoglobin 166 mg/dL <126 H [facility] Procedure Social History Code Duration Value Status Description Data Source(s ) Alcohol intake 07/28/2020 12:00:00 AM EST Current drinker of al cohol (finding) completed Current drinker of alcohol (finding) [facility] Tobacco use and exposure 07/28/2020 12:00:00 AM EST Former user co mpleted Former user [facility] Cigarette pack-years 07/28/2020 12:00:00 AM EST UNK completed [facility] Cigarettes smoked current (pack per day) - Reported 07/28/20 12:00:00 AM EST UNK completed [facility] Smoking 07/28/2020 12:00:00 AM EST Former smoker completed Former smoker [facility] Alcohol intake 04/25/2020 12:00:00 AM EDT Current drinker of al cohol (finding) completed Current drinker of alcohol (finding) [facility] Alcohol intake 01/27/2020 12:00:00 AM EDT Current drinker of al cohol (finding) completed Current drinker of alcohol (finding) [facility] Cigarette pack-years 01/27/2020 12:00:00 AM EDT UNK completed [facility] Cigarettes smoked current (pack per day) - Reported 01/27/20 12:00:00 AM EDT UNK completed [facility] Smoking 01/27/2020 12:00:00 AM EDT Former smoker completed Former smoker [facility] Alcohol intake 10/28/2019 12:00:00 AM EST Current drinker of al cohol (finding) completed [facility] (finding) [facility] [facility] 10/28/2019 12:00:00 AM EST UNK completed [facility] Cigarettes smoked current (pack per day) - Reported 10/28/19 12:00:00 AM EST UNK completed [facility] Smoking 10/28/2019 12:00:00 AM EST Former smoker completed Former smoker [facility] Alcohol intake 07/27/2019 12:00:00 AM EST Current drinker of al cohol (finding) completed Current drinker of alcohol (finding) [facility] Cigarette pack-years 07/27/2019 12:00:00 AM EST UNK completed [facility] Cigarettes smoked current (pack per day) - Reported 07/27/20 12:00:00 AM EST UNK completed [facility] Smoking 07/27/2019 12:00:00 AM EST Former smoker completed Former smoker [facility] Vital Signs ID Date Data Source UNK Name Value Range Interpretation Code Description Data Source(s) Diastolic blood pressure 58 mm[Hg] 58 mm[Hg] eCW1 (Pending Sale To [facility]) Systolic blood pressure 144 mm[Hg] 144 mm[Hg] e CW1 (Pending Sale To [facility]) Body temperature 97.8 [degF] 97.8 [degF] eCW1 ( Pending Sale To [facility]) Respiratory rate 20 /min 20 /min eCW1 ([facility]) Heart rate 62 /min 62 /min eCW1 ([facility]) Body mass index (BMI) [Ratio] 26.66 kg/m2 26.66 kg/m2 eCW1 (Pending Sale To [facility]) Body height 65 [in_i] 65 [in_i] eCW1 ([facility]) Body weight 160.2 [lb_av] 160.2 [lb_av] eCW1 ([facility]) Diastolic blood pressure 86 mm[Hg] 86 mm[Hg] eCW1 (Pending Sale To [facility]) Systolic blood pressure 142 mm[Hg] 142 mm[Hg] e CW1 (Pending Sale To [facility]) Body temperature 97.5 [degF] 97.5 [degF] eCW1 ( Pending Sale To [facility]) Respiratory rate 20 /min 20 /min eCW1 ([facility]) Heart rate 71 /min 71 /min eCW1 ([facility]) Body mass index (BMI) [Ratio] 27.19 kg/m2 27.19 kg/m2 eCW1 (Pending Sale To [facility]) Body height 65 [in_i] 65 [in_i] eCW1 ([facility]) Body weight 163.4 [lb_av] 163.4 [lb_av] eCW1 ([facility]) Body weight 75.524 kg 75.524 kg MEDENT ([facility], ) Body mass index (BMI) [Ratio] 27.7 kg/m2 27.7 k g/m2 MEDENT ([facility], ) Body weight 166.50 [lb_av] 166.50 [lb_av] MEDEN T ([facility]) Body height 65 [in_i] 65 [in_i] [facility] 5'5" Diastolic blood pressure 69 mm[Hg] 69 mm[Hg] [facility] ([facility]) Systolic blood pressure 196 mm[Hg] 196 mm[Hg] M [facility] ([facility]) Body weight 73.030 kg 73.030 kg [facility] ([facility]) Body mass index (BMI) [Ratio] 26.8 kg/m2 26.8 k g/m2 [facility] ([facility]) Body weight 161.00 [lb_av] 161.00 [lb_av] MEDEN T ([facility]) Body height 65 [in_i] 65 [in_i] [facility] ([facility]) 5'5" Diastolic blood pressure 56 mm[Hg] 56 mm[Hg] [facility] ([facility]) Systolic blood pressure 102 mm[Hg] 102 mm[Hg] M [facility] ([facility]) Diastolic blood pressure 78 mm[Hg] 78 mm[Hg] [facility] ([facility]) Systolic blood pressure 190 mm[Hg] 190 mm[Hg] M [facility] ([facility]) Diastolic blood pressure 52 mm[Hg] 52 mm[Hg] eCW1 (Pending Sale To [facility]) Systolic blood pressure 114 mm[Hg] 114 mm[Hg] e CW1 (Pending Sale To [facility]) Body temperature 97.6 [degF] 97.6 [degF] eCW1 ( Pending Sale To [facility]) Respiratory rate 20 /min 20 /min eCW1 ([facility]) Heart rate 71 /min 71 /min eCW1 ([facility]) Body mass index (BMI) [Ratio] 27.12 kg/m2 27.12 kg/m2 W1 (Pending Sale To [facility]) Body height 65 [in_us] 65 [in_us] eCW1 ([facility]) Body weight Measured 163.0 [lb_av] 163.0 [lb_av ] eCW1 (Pending Sale To [facility]) Diastolic blood pressure 50 mm[Hg] 50 mm[Hg] eCW1 (Pending Sale To [facility]) Systolic blood pressure 110 mm[Hg] 110 mm[Hg] e CW1 (Pending Sale To [facility]) Body temperature 98 [degF] 98 [degF] eCW1 ([facility]) Respiratory rate 20 /min 20 /min eCW1 ([facility]) Heart rate 60 /min 60 /min eCW1 ([facility]) Body mass index (BMI) [Ratio] 25.79 kg/m2 25.79 kg/m2 eCW1 (Pending Sale To [facility]) Body height 65 [in_us] 65 [in_us] eCW1 ([facility]) Body weight Measured 155 [lb_av] 155 [lb_av] eC W1 (Pending Sale To [facility]) Diastolic blood pressure 60 mm[Hg] 60 mm[Hg] MEDENT ([facility]) Systolic blood pressure 150 mm[Hg] 150 mm[Hg] M EDENT ([facility]) ID Date Data Source [id number] 08/02/2020 12:54:49 AM [facility] Name Value Range Interpretation Code Description Data Source(s) PREFERRED NAME Charlie Borja [facility] ID Date Data Source [id number] 01/21/2020 02:02:05 PM [facility] Name Value Range Interpretation Code Description Data Source(s) WEIGHT RECORDED 152.7 lb 152.7 lb [facility] Body height Measured 64.69 in 64.69 in [facility] ID Date Data Source [id number] 07/27/2019 10:50:53 AM [facility] Name Value Range Interpretation Code Description Data Source(s) WEIGHT RECORDED 161 lb 161 lb [facility] Body height Measured 64.88 in 64.88 in [facility] Patient Treatment Plan of Care Planned Activity Planned Date Details Description Data Source (s) Cephalexin 250 MG Oral Capsule [Keflex] 08/29/2020 12:00:00 AM EST eCW1 (Pending Sale To [facility]) Losartan Potassium 50 MG Oral Tablet 07/16/2020 12:00:00 AM [facility] Insulin Lispro 100 UNT/ML Injectable Solution [Humalog ] 07/11/2020 12:00:00 AM [facility] topiramate 25 MG Oral Tablet 06/22/2020 12:00:00 AM EDT eCW1 (Pending Sale To [facility]) topiramate 25 MG Oral Tablet 06/22/2020 12:00:00 AM EDT eCW1 (Pending Sale To [facility]) topiramate 25 MG Oral Tablet 06/22/2020 12:00:00 AM EDT eCW1 (Pending Sale To [facility]) topiramate 25 MG Oral Tablet 06/22/2020 12:00:00 AM EDT eCW1 (Pending Sale To [facility]) Insulin Lispro 100 UNT/ML Injectable Solution [Humalog ] 03/11/2020 12:00:00 AM [facility] Labetalol hydrochloride 200 MG Oral Tablet 11/24/2019 12:00:00 AM E [facility] Dexcom G6 Transmitter 10/28/2019 12:00:00 AM [facility] Dexcom G6 Sensor 10/28/2019 12:00:00 AM [facility] Acetaminophen 325 MG / Hydrocodone Bitartrate 5 MG Ora l Tablet 08/17/2019 12:00:00 AM EST eCW1 ([facility]) Acetaminophen 325 MG / Hydrocodone Bitartrate 5 MG Ora l Tablet 08/17/2019 12:00:00 AM EST eCW1 ([facility]) Glucagon 3 MG/DOSE Nasal Powder (BAQSIMI ONE PACK) 07/27/2019 12 :00:00 AM [facility] Hydralazine Hydrochloride 50 MG Oral Tablet 02/18/2019 12:00:00 AM [facility] 1.5 ML insulin human, isophane 100 UNT/ML Prefilled Sy ringe 10/20/2018 12:00:00 AM [facility] Acetaminophen 325 MG / Hydrocodone Bitartrate 5 MG Ora l Tablet 06/15/2017 12:00:00 AM [facility] Continuous Blood Gluc Building Carpenter (FREESTYLE JINA 14 DAY READER) [facility] Dexcom G5 Mobile Transmitter [facility] Dexcom G5 Mobile Building Carpenter Device [facility] Continuous Blood Gluc Sensor (FREESTYLE JINA 14 DAY SENSOR) [facility]
[2020-09-24 15:07] LABS: CALCIUM LEVEL 8.9 MG/DL (8.8-10.2); CREATININE FOR GFR 2.7 MG/DL (0.70-1.30); GLOMERULAR FILTRATION RATE 25.1 (>49)
[2020-09-24] MEDS ORDERED: cloNIDine 0.1MG TABLET PO ONE (18:00)
[2020-09-24] MEDS ORDERED: SPIRONOLACTONE 25 MG TAB PO ONE (18:00)
[2020-09-24] MEDS ORDERED: LABETALOL 200 MG TAB PO ONE (18:00)
[2020-09-24] MEDS ORDERED: LOSARTAN 50MG TABLET PO ONE (18:00)
== END 2020-09-24 20:36 | disposition home or self-care (01) ==
LOC: M ED 13:56
DX: N18.9 Chronic kidney disease, unspecified (principal); D63.1 Anemia in chronic kidney disease; E10.9 Type 1 diabetes mellitus without complications; I11.9 Hypertensive heart disease without heart failure; Z79.51 Long term (current) use of inhaled steroids; Z79.899 Other long term (current) drug therapy; Z88.6 Allergy status to analgesic agent; Z88.8 Allergy status to other drugs, medicaments and biological substances; Z99.2 Dependence on renal dialysis
CPT/HCPCS: 36430; 80048; 85027; 86850; 86900; 86901; 86920; 99285; P9016

== ENCOUNTER 2020-10-04 13:52 | Inpatient (IN) | payer MEDICARE ==
[~2020-10-04] VITALS: Ht 165.1 cm; Wt 64.1 kg
[2020-10-04] MEDS ORDERED: SPIRONOLACTONE 25 MG TAB PO STA (14:26)
[2020-10-04] MEDS ORDERED: LABETALOL 200 MG TAB PO ONE (14:30)
[2020-10-04] MEDS ORDERED: cloNIDine 0.1MG TABLET PO ONE (14:30)
[2020-10-04] MEDS ORDERED: LOSARTAN 50MG TABLET PO ONE (14:30)
[2020-10-04] MEDS ORDERED: SPIRONOLACTONE 12.5MG PER 1/2 TABLET PO STA (14:48)
[2020-10-04 14:49] LABS: EOS # 0.1 10^3/uL (0.0-0.5); EOS % 2.8 % (0.0-3.0); HEMATOCRIT 36.5 % (42.0-52.0); HEMOGLOBIN 12.4 g/dl (13.5-17.5); LYMPH # 0.8 10^3/uL (1.5-5.0); LYMPH % 19.6 % (24.0-44.0); MEAN CORPUSCULAR HEMOGLOBIN 34.3 pg (27.0-33.0); MEAN CORPUSCULAR VOLUME 100.8 fl (80.0-96.0); MONO # 0.4 10^3/uL (0.0-0.8); MONO % 10.3 % (0.0-5.0); NEUTROPHILS # 2.6 10^3/uL (1.5-8.5); PLATELET COUNT, AUTOMATED 227 10^3/uL (150-450); RED BLOOD COUNT 3.62 10^6/uL (4.30-6.10)
[2020-10-04 15:00] LABS: INR 0.92; PROTHROMBIN TIME 12.5 SECONDS (12.5-14.3)
--- NOTE | 2020-10-04 15:03 | REP ---
INDICATION: DYSPNEA/COUGH. COMPARISON: Comparison chest x-ray September 10, 2020. TECHNIQUE: Portable upright AP chest radiograph. FINDINGS: Bibasilar infiltrates persist right greater than left similar to the prior study. Today's exam shows fissural thickening or platelike atelectasis along the minor fissure. Pulmonary vasculature is cephalized. Cardiomegaly is observed. Monitoring electrodes are seen.. IMPRESSION: Bibasilar parenchymal opacities or infiltrates again noted essentially unchanged. Fissural thickening versus platelike atelectasis right mid lung zone. Cardiomegaly. Vascular cephalization.. <Electronically signed by Kris Willingham > 10/04/20 [id number]
[2020-10-04 15:36] LABS: ALT/SGPT 17 U/L (12-78); BILIRUBIN,DIRECT 0.1 MG/DL (0.0-0.2); BILIRUBIN,TOTAL 0.4 MG/DL (0.2-1.0); BLOOD UREA NITROGEN 13 MG/DL (7-18); CALCIUM LEVEL 9.2 MG/DL (8.8-10.2); CARBON DIOXIDE LEVEL 32 MEQ/L (21-32); CHLORIDE LEVEL 102 MEQ/L (98-107); CK-MB VALUE MASS 3.3 NG/ML (<3.6); CPK CREATINE PHOSPHOKINASE 78 U/L (39-308); CREATININE FOR GFR 3.76 MG/DL (0.70-1.30); GLOMERULAR FILTRATION RATE 17.1 (>49); GLUCOSE, FASTING 183 MG/DL (70-100); IRON (FE) 52 UG/DL (65-175); MB/CK RELATIVE INDEX 4.23 (< OR =4); NT-PRO BNP 94006 PG/ML (<125); PERCENT SATURATION 34.4 % (19.7-50.0); POTASSIUM SERUM 3.1 MEQ/L (3.5-5.1); SODIUM LEVEL 140 MEQ/L (136-145); THYROXINE (T4) 8.3 UG/DL (4.5-12.0); TOTAL IRON BINDING CAPACITY 151 UG/DL (250-450); TOTAL PROTEIN 6.6 GM/DL (6.4-8.2); TROPONIN I < 0.02 NG/ML (< 0.10)
--- NOTE | 2020-10-04 16:23 | REP ---
INDICATION: SOB. COMPARISON: 09/03/2020 TECHNIQUE: Noncontrast enhanced helical technique FINDINGS: There is no significant change in appearance of the mediastinum or pulmonary chelsea. Calcified mediastinal and right hilar lymph nodes are again noted. There is no pericardial effusion. There are bilateral pleural effusions which have increased compared to the prior exam. Bone window technique throughout the examination shows no significant change compared to the prior exam. Marked endplate irregularities and lucencies are seen with disc irregularities and disc space narrowing at multiple levels varying degrees of lucencies and sclerosis are seen involving multiple vertebral bodies unchanged. Multilevel vacuum phenomena from degenerative disc disease is again noted and appears unchanged. The imaged upper abdomen is unchanged. Evaluation of the lung ernandez shows bilateral lower lung field asymmetric and patchy opacities some with air bronchograms essentially unchanged from the prior exam. No new abnormal opacities have developed. IMPRESSION: 1. Increased bilateral pleural effusions. 2. Abnormal bilateral lower lung field opacities as described above. Combination of infectious and subsegmental atelectatic changes should be clinically evaluated for. 3. Vertebral body abnormalities and other findings as described above. <Electronically signed by Russ Ashton > 10/04/20 [id number]
[2020-10-04] MEDS ORDERED: hydrALAZINE 20MG/ML 1ML VIAL (J0360 PER 20MG) IV ONE (16:30)
[2020-10-04] MEDS ORDERED: FUROSEMIDE 40MG/4ML VIAL (J1940) IV ONE (16:30)
[2020-10-04] MEDS ORDERED: BREO1INH INH (17:06)
[2020-10-04] MEDS ORDERED: ACETAMINOPHEN TAB 650MG DOSE (2X325MG) PO PRN (17:45)
[2020-10-04] MEDS ORDERED: ALBUTEROL SULFATE 2.5 MG/0.5 ML INH NEB SOLN INH PRN (17:45)
[2020-10-04] MEDS ORDERED: COMBIVENT RESPIMAT 100-20MCG INHALER 4GM INH PRN ×2 (17:45→18:45)
[2020-10-04] MEDS ORDERED: NORCO, ANEXSIA 5/325MG TABLET (HYDROcodone/ACETAMINOPHEN) PO PRN (17:45)
--- NOTE | 2020-10-04 17:49 | HPEPDOC ---
[facility] Medical History & Physical Date of Admission Oct 04, 2020 Date of Service: Oct 04, 2020 History and Physical Chief complaint: Who presented to the emergency room with complaints of shortness of breath History of present illness: Patient is a 70-year-old male who presented to the emergency room with complaints of short of breath. Patient reported that he was experiencing worsening shortness of breath that started this morning patient subsequently went for dialysis and required oxygen during the session. After that, he came to the emergency room for further e valuation. Patient denies any chest pain, palpitations or cough. Does report that it is a little labored to breathe. Patient reports that he does not express any leg swelling, but does experience shortness breath when laying on his back.. He denies any recent fevers or chills. Patient denies any nausea, vomiting, abdominal pain, diarrhea, constipation or having any urinary discomfort despite making very little urine. Patient reports that his last bowel movement was this morning. Patient has reported a headache initially that has resolved. Upon arrival to emergency room. Past Medical History: ESRD on HD (TTS) IDDM1 on Insulin pump Neuropathy Peripheral vascular disease, s/p fem-pop bypass and femoral stent placement CAD, s/p self-reported ME Chronic macrocytic anemia 2/2 Chronic recurrent GI bleed due to AV malformations DLP Spinal stenosis Depression Past Surgical History: Femoral artery angioplasty with stents. Right femoral popliteal bypass graft. Iliofemoral bypass graft. Bilateral submandibular gland excision. History of multiple colonoscopies and endoscopies. AV fistula creation and right forearm. Bilateral cataract surgery Allergies: See below Medications: See below Family History: - No history of malignancies Social History: - Denies the use of illicit drugs; former smoker; drinks alcohol socially - Denies recent travel or sick contacts - Lives with - Occupation; retired from [employer] Review of Systems: 10 point review of systems complete, all negative otherwise stated in HPI Physical exam: - Vitals: BP [188/20], HR [66], RR [20], Sat [95%RA], Temp [99.0F] - General: Lying in bed, Speaking in full sentences, AAOx3 - HEENT: NC, AT, PERRLA - CVS: RRR, +S1S2 - Lungs: Fair air entry bilaterally, No appreciable wheezing / rhonchi, bilateral crackles appreciated - Abdomen: Soft, Non-distended, Non-tender - Extremities: No lower extremity edema, No calf tenderness - Neuro: No focal motor or sensory deficit - Skin: No visible rashes Labs: See below Imaging: CXR 10/04: Bibasilar parenchymal opacities or infiltrates again noted essentially unchanged. Fissural thickening versus platelike atelectasis right mid lung zone. Cardiomegaly. Vascular cephalization.. CT chest 10/04: 1. Increased bilateral pleural effusions. 2. Abnormal bilateral lower lung field opacities as described above. Combination of infectious and subsegmental atelectatic changes should be clinically evaluated for. 3. Vertebral body abnormalities and other findings as described above. EKG: See below Assessment and Plan: Shortness of breath - likely 2/2 fluid overload - 2/2 ESRD on HD (TTS) - She has received dialysis today. However, had required oxygen - Physical does reveal bilateral crackles at lung bases - Elevated BNP - Imaging noted above - Will have dialysis session completed tomorrow - Consulted nephrology; case discussed HTN Urgency - Likely 2/2 fluid overload - SBP of 200s in the ER - Will resume home medications - s/p Losartan PO and Hydralazine IV in the ER - c/w Spironolactone / Losartan / Labetolol / Clonidine - Will provide Hydralazine IV if BP remains elevated IDDM1 on Insulin pump - Complicated with neuropathy - Continue with home insulin pump Peripheral vascular disease - s/p fem-pop bypass and femoral stent placement - c/w ASA, Plavix, Atorvastatin CAD - s/p self-reported ME - c/w ASA, Plavix, Atorvastatin Chronic anemia 2/2 chronic recurrent GI bleed due to AV malformations - c/w Ferrous sulfate DLP - c/w Atorvastatin Spinal stenosis - c/w home pain medications Depression - c/w Citalopram GERD - c/w Protonix DVT prophylaxis - Will start Heparin Vital Signs Vital Signs Date Time Temp Pulse Resp B/P (MAP) Pulse Ox O2 Delivery O2 Flow Rate FiO2 10/04/20 17:30 66 20 188/80 (116) 95 Room Air 10/04/20 13:53 99.0 Laboratory Data Labs 24H Laboratory Tests 2 10/04/20 14:30: Immature Granulocyte % (Auto) 1.3, Neutrophils (%) (Auto) 65.0, Lymphocytes (%) (Auto) 19.6L, Monocytes (%) (Auto) 10.3H, Eosinophils (%) (Auto) 2.8, Basophils (%) (Auto) 1.0, Neutrophils # (Auto) 2.6, Lymphocytes # (Auto) 0.8L, Monocytes # (Auto) 0.4, Eosinophils # (Auto) 0.1, Basophils # (Auto) 0.0, Nucleated Red Blood Cells % (auto) 0.0, Prothrombin Time 12.5, Prothromb Time International Ratio 0.92, Anion Gap 6L, Glomerular Filtration Rate 17.1L, Calcium Level 9.2, Iron Level 52L, Total Iron Binding Capacity 151L, Transferrin % Saturation 34.4, Total Bilirubin 0.4, Direct Bilirubin 0.1, Aspartate Amino Transf (AST/SGOT) 17, Alanine Aminotransferase (ALT/SGPT) 17, Alkaline Phosphatase 94, Total Creatine Kinase 78, Creatine Kinase MB 3.3, Creatine Kinase MB Relative Index 4.23H, Troponin I < 0.02, TH-Wuo-L-Type Natriuretic Peptide 13095V, Total Protein 6.6, Albumin 3.0L, Albumin/Globulin Ratio 0.8, Thyroid Stimulating Hormone (TSH) 2.320, Thyroxine (T4) 8.3 10/04/20 17:31: CBC/BMP Laboratory Tests 10/04/20 14:30 Microbiology Microbiology 10/04/20 Blood Culture, Received Pending Home Medications Scheduled Aspirin (Aspirin EC) 81 Mg Tab, 81 MG PO DAILY Atorvastatin Calcium (Atorvastatin Calcium) 80 Mg Tab, 80 MG PO QPM 1600 Calcitriol (Calcitriol) 0.25 Mcg Capsule, 0.25 MCG PO 3XW SATURDAY, SATURDAY, AND SATURDAY AT DIALYSIS Citalopram Hydrobromide (Citalopram HBr) 40 Mg Tab, 40 MG PO DAILY Clonidine HCl (Clonidine HCl) 0.1 Mg Tablet, 0.1 MG PO BID Clopidogrel Bisulfate (Clopidogrel) 75 Mg Tab, 75 MG PO DAILY Ergocalciferol (Vitamin D2) (Vitamin D2) 50,000 Units Cap, 50,000 UNITS PO 1XWK SATURDAY Ferrous Sulfate (Ferrous Sulfate) 325 Mg Tablet.dr, 325 MG PO DAILY Fluticasone/Vilanterol (Breo Ellipta 100-25 Mcg INH) 1 Each Blst.w.dev, 1 PUFF INH DAILY HAS NOT STARTED YET Insulin Human Lispro (Humalog) 100 Unit/1 Ml Vial, 1 DOSE SC ASDIRECTED VIA INSULIN PUMP: 0000 - 0400 : 0.6 UNITS/HR 0400 - 2100 : 0.3 UNITS/HR 2100 - 0000 : 0.6 UNITS/HR CARB RATIO 12 CARBS PER UNIT Labetalol HCl (Labetalol HCl) 200 Mg Tablet, 200 MG PO BID Losartan Potassium (Losartan Potassium) 50 Mg Tablet, 50 MG PO QHS Mirtazapine (Remeron) 15 Mg Tablet, 45 MG PO QHS Pantoprazole Sodium (Pantoprazole Sodium) 40 Mg Tab, 40 MG PO BID Spironolactone (Spironolactone) 25 Mg Tab, 25 MG PO BID Scheduled PRN Albuterol Sulf (Albuterol Sulfate) 2.5 Mg/3 Ml Vial.neb, 2.5 MG INH Q4H PRN for SHORTNESS OF BREATH Hydrocodone/Acetaminophen (Hydrocodone-Acetamin 5-325 mg) 1 Each Tablet, 1 TAB PO Q6H PRN for PAIN Ipratropium/Albuterol Sulfate (Combivent Respimat 20-100 Mcg) 4 Gm Mist.inhal, 2 PUFF INH Q4H PRN for SOB/WHEEZING Allergies Coded Allergies: Quinolones (Verified Allergy, Mild, RASH, 02/16/19) CHARLES Inhibitors (Verified Adverse Reaction, Intermediate, ARF, 02/16/19) NSAIDS (Non-Steroidal Anti-Inflamma (Verified Adverse Reaction, Intermediate, KIDNEY DAMAGE, 02/16/19) celecoxib (Verified Adverse Reaction, Intermediate, KIDNEY DAMAGE, ) gabapentin (Verified Adverse Reaction, Intermediate, personality changes, 02/17/19) ibuprofen (Verified Adverse Reaction, Intermediate, KIDNEY DAMAGE, 02/16/19) lisinopril (Verified Adverse Reaction, Intermediate, RENAL FAILURE, 02/16/19) sulfamethoxazole (Verified Adverse Reaction, Intermediate, RENAL FAILURE, 02/16/19) trimethoprim (Verified Adverse Reaction, Intermediate, RENAL FAILURE, 02/16/19) cefazolin (Verified Adverse Reaction, Mild, DIZZINESS, 02/16/19) cyclobenzaprine (Verified Adverse Reaction, Mild, DIZZINESS, 02/16/19) hydrochlorothiazide (Verified Adverse Reaction, Mild, DIZZINESS, 02/16/19) triamterene (Verified Adverse Reaction, Mild, DIZZINESS, 02/16/19) MARY JO MAY MD Oct 04, 2020 17:49
[2020-10-04 18:25] LABS: RSV AMPLIFICATION NEGATIVE (NEGATIVE)
[2020-10-04] MEDS: ADVAIR HFA 230/21MCG INHALER INH SCH (20:00)
[2020-10-04 21:33] VITALS: BP 210/90
[2020-10-04] MEDS: LOSARTAN 50MG TABLET PO SCH (22:07)
[2020-10-04] MEDS: LABETALOL 200 MG TAB PO SCH (22:07)
[2020-10-04] MEDS: PANTOPRAZOLE 40MG TAB (PROTONIX) PO SCH (22:07)
[2020-10-04] MEDS: ATORVASTATIN 20 MG TAB PO SCH (22:08)
[2020-10-04] MEDS: cloNIDine 0.1MG TABLET PO SCH (22:08)
[2020-10-04] MEDS: MIRTAZAPINE 15 MG TAB PO SCH (22:08)
[2020-10-04] MEDS: HEPARIN SOD (PORCINE) 5000UNITS/ML 1ML VIAL/SYRINGE SC SCH (22:11)
[2020-10-04] MEDS: SPIRONOLACTONE 25 MG TAB PO SCH (22:19)
[2020-10-04] MEDS: hydrALAZINE 20MG/ML 1ML VIAL (J0360 PER 20MG) IV SCH (23:43)
[2020-10-05] VITALS (7 sets, daily range): BP systolic 132–190; BP diastolic 62–96
[2020-10-05] MEDS: hydrALAZINE 20MG/ML 1ML VIAL (J0360 PER 20MG) IV SCH ×3 (06:00→16:48)
[2020-10-05 06:36] LABS: BASO # 0.1 10^3/uL (0.0-0.2); BASO % 1.8 % (0.0-1.0); EOS # 0.1 10^3/uL (0.0-0.5); EOS % 2.4 % (0.0-3.0); LYMPH # 0.8 10^3/uL (1.5-5.0); LYMPH % 24.6 % (24.0-44.0); MEAN CORPUSCULAR HEMOGLOBIN 33.3 pg (27.0-33.0); MEAN CORPUSCULAR HGB CONC 32.4 g/dl (32.0-36.5); MEAN CORPUSCULAR VOLUME 102.8 fl (80.0-96.0); MONO # 0.5 10^3/uL (0.0-0.8); MONO % 13.3 % (0.0-5.0); NEUTROPHILS # 1.9 10^3/uL (1.5-8.5); PLATELET COUNT, AUTOMATED 243 10^3/uL (150-450); WHITE BLOOD COUNT 3.4 10^3/uL (4.0-10.0)
[2020-10-05] MEDS: HEPARIN SOD (PORCINE) 5000UNITS/ML 1ML VIAL/SYRINGE SC SCH (06:46)
[2020-10-05 06:57] LABS: CALCIUM LEVEL 9.4 MG/DL (8.8-10.2); CREATININE FOR GFR 5.86 MG/DL (0.70-1.30); GLOMERULAR FILTRATION RATE 10.3 (>49); MAGNESIUM LEVEL 2.1 MG/DL (1.8-2.4); POTASSIUM SERUM 3.8 MEQ/L (3.5-5.1)
[2020-10-05] MEDS: ADVAIR HFA 230/21MCG INHALER INH SCH ×2 (07:29→20:16)
[2020-10-05] MEDS: CLOPIDOGREL 75 MG TAB PO SCH (09:00)
[2020-10-05] MEDS: ASPIRIN 81 MG ENTERIC TAB PO SCH (09:00)
[2020-10-05] MEDS: cloNIDine 0.1MG TABLET PO SCH ×2 (13:01→21:01)
[2020-10-05] MEDS: LABETALOL 200 MG TAB PO SCH ×2 (13:01→21:00)
[2020-10-05] MEDS: SPIRONOLACTONE 25 MG TAB PO SCH ×2 (13:01→21:02)
[2020-10-05] MEDS: FERROUS SULFATE 325MG TAB PO SCH (13:01)
[2020-10-05] MEDS: CitaloPRAM (CeleXA) 20 MG TAB PO SCH (13:02)
[2020-10-05] MEDS: PANTOPRAZOLE 40MG TAB (PROTONIX) PO SCH ×2 (13:02→21:01)
--- NOTE | 2020-10-05 14:41 | ECGEPIP ---
[place] - ED Test Date: 2020-10-04 Pat Name: CHARLIE FUENTES Department: Room: - Gender: Male Product Picker: PHILIPPEERIC : [id number] Requested By: TOOTIE FERNANDEZ Order Number: [id number] Reading MD: Rhina Huntley Measurements Intervals [place] Rate: 66 P: -1 RI: 198 QRS: 36 QRSD: 88 T: 0 QT: 340 QTc: 359 Interpretive Statements SINUS RHYTHM NONSPECIFIC ST & T-WAVE ABNORMALITY INCREASED RATE 09/10/20 Electronically Signed on 10-05-2020 14:41:35 EST by Rhina Huntley
--- NOTE | 2020-10-05 16:34 | REP ---
INDICATION: POST THORA, 2 VIEW. Patient is status post right thoracentesis under ultrasound guidance. COMPARISON: Comparison chest x-ray 04 October 2020.. TECHNIQUE: PA and lateral views of the chest. FINDINGS: There is very slight residual blunting of the right posterior pleural angle consistent with improved right effusion. There is no evidence of pneumothorax or other evidence of complication. Chest x-ray is otherwise unchanged from 04 October 2020. IMPRESSION: No complication seen. <Electronically signed by Kris Willingham > 10/05/20 [id number]
[2020-10-05 16:36] LABS: APPEARANCE, BODY FLUID CLEAR (CLEAR); PLEURAL FL COLOR PALE YELLOW (COLORLESS); SOURCE, BODY FLUID PLEURAL
[2020-10-05 16:54] LABS: PH BODY FLUID 7.777 UNITS (NOT ESTABLISHED); SOURCE, BODY FLUID pH PLEURAL
--- NOTE | 2020-10-05 16:58 | IPNPDOC ---
Text Note Date of Service The patient was seen on 10/05/20. NOTE Subjective: Patient is a 70-year-old male who presented to the emergency room with complaints of short of breath. Patient reported that he was experiencing worsening shortness of breath that started this morning patient subsequently went for dialysis and required oxygen during the session. After that, he came to the emergency room for further evaluation. Patient denies any chest pain, palpitations or cough. Does report that it is a little labored to breathe. Patient reports that he does not experience any leg swelling, but does experience shortness breath when laying on his back.. He denies any recent fevers or chills. Patient was admitted to the hospitalist service for further evaluation and treatment and nephrology was called on consultation. Patient was seen and examined at the bedside. Patient reports that he denies any chest pain,or palpitations. Reports his breathing is still a little labored. Denies any nausea, vomiting, abdominal pain, diarrhea or constipation. Objective: Vitals (See below) General: Lying in bed, appears comfortable, AAOx3 HEENT: NC, AT CVS: +S1S2 Lungs: Fair air entry b/l, mild crackles Abdomen: Soft, ND, NT Extremities: - Edema, - Calf tenderness Imaging: CXR 10/04: Bibasilar parenchymal opacities or infiltrates again noted essentially un changed. Fissural thickening versus platelike atelectasis right mid lung zone. Cardiomegaly. Vascular cephalization.. CT chest 10/04: 1. Increased bilateral pleural effusions. 2. Abnormal bilateral lower lung field opacities as described above. Combination of infectious and subsegmental atelectatic changes should be clinically evaluated for. 3. Vertebral body abnormalities and other findings as described above. Assessment and plan: Shortness of breath - likely 2/2 fluid overload and bilateral pleural effusions - 2/2 ESRD on HD (TTS) - Currently remains unchanged - Physical does reveal bilateral crackles at lung bases - Elevated BNP - Imaging noted above - Plan for dialysis and IR guided drainage of pleural fluid today - Nephrology on consultation HTN Urgency - likely 2/2 fluid overload - SBP better controlled - s/p Losartan PO and Hydralazine IV in the ER - c/w Spironolactone / Losartan / Labetalol / Clonidine - c/w Hydralazine IV if BP remains elevated IDDM1 on Insulin pump - Complicated with neuropathy - c/w home insulin pump Peripheral vascular disease - s/p fem-pop bypass and femoral stent placement - c/w ASA, Plavix, Atorvastatin CAD - s/p self-reported [place] - c/w ASA, Plavix, Atorvastatin Chronic anemia 2/2 chronic recurrent GI bleed due to AV malformations - c/w Ferrous sulfate DLP - c/w Atorvastatin Spinal stenosis - c/w home pain medications Depression - c/w Citalopram GERD - c/w Protonix DVT prophylaxis - Will hold Heparin for IR procedure Disposition: - Anticipate DC within 24 hours VS,Fishbone, I+O VS, Fishbone, I+O Laboratory Tests 10/05/20 06:22 Vital Signs Date Time Temp Pulse Resp B/P (MAP) Pulse Ox O2 Delivery O2 Flow Rate FiO2 10/05/20 16:48 132/64 10/05/20 16:46 98.9 59 18 94 Room Air 10/05/20 04:00 2.0 I&O- Last 24 Hours up to 6 AM 10/05/20 06:00 Intake Total 0 ml Output Total 0 ml Balance 0 ml MARY JO MAY MD Oct 05, 2020 16:58
[2020-10-05 17:04] LABS: AMYLASE, BODY FLUID 33 U/L (NOT ESTABLISHED); LDH, BODY FLUID 78 U/L (NOT ESTABLISHED); SOURCE, BODY FLUID AMYLASE PLEURAL; SOURCE, BODY FLUID GLUCOSE PLEURAL; SOURCE, BODY FLUID LDH PLEURAL; SOURCE, BODY FLUID TOT PROTEIN PLEURAL; TOTAL PROTEIN, BODY FLUID 2.2 G/DL (NOT ESTABLISHED)
--- NOTE | 2020-10-05 18:48 | REP ---
INDICATION: R sided effusion The patient has a history of right pleural effusion COMPARISON: None. TECHNIQUE: The procedure was performed by Jo Ann Mcgowan [facility], under the direct supervision of Dr. Willingham The risks and benefits of the procedure were explained to the patient and an informed consent was obtained both verbally and written. Directly prior to the start of the procedure a formal time-out was completed in the procedure room. Pleural fluid in right lung zone was localized using ultrasound guidance. The skin was prepped and draped in a sterile fashion. Eight ML of 1% lidocaine 10 mg/ml was used as a local anesthetic. Using ultrasound guidance an 8-Beninese multi side-hole catheter was inserted using trocar technique. FINDINGS: 850 mL of yellow colored fluid was withdrawn and sent to the laboratory for further analysis. The patient tolerated the procedure well and there were no immediate complications. After the appropriate amount of monitored convalescence, the patient was discharged from the department. IMPRESSION: Right thoracentesis with removal of 850 <Electronically signed by Jo Ann Mcgowan > 10/05/20 [id number] <Electronically signed by Kris Willingham > 10/05/20 [id number]
[2020-10-05] MEDS: ATORVASTATIN 20 MG TAB PO SCH (21:01)
[2020-10-05] MEDS: LOSARTAN 50MG TABLET PO SCH (21:02)
[2020-10-05] MEDS: MIRTAZAPINE 15 MG TAB PO SCH (21:02)
[2020-10-05] MEDS: HEPARIN SOD (PORCINE) 5000UNITS/ML 1ML VIAL/SYRINGE SQ SCH (21:03)
--- NOTE | 2020-10-05 21:20 | CR ---
NEPHROLOGY CONSULTATION DATE: 10/05/2020 CONSULTATION REQUESTED BY: Timo Jaquez M.D. REASON FOR CONSULTATION: Shortness of breath in this gentleman with end-stage renal disease. HISTORY OF PRESENT ILLNESS: Mr. Norwood was admitted last evening due to shortness of breath. He is a 70-year-old gentleman with multiple chronic medical problems including longstanding insulin requiring diabetes type 1, hypertension, peripheral vascular disease, coronary artery disease, severe peripheral neuropathy and end-stage renal disease. He was short of breath on presentation to dialysis yesterday and did receive his dialysis and fluid removal as scheduled. After dialysis, he did not feel well and came to the Emergency Room. He was found to be still volume overloaded and a CAT scan of the chest was done, which showed bilateral pleural effusions; much larger on the right side compared to the left, which has a small pleural effusion. He was also with pulmonary vascular congestion. His shortness of breath improved with oxygen supplementation. Nephrology consultation was requested for further dialysis and patient is seen this morning. PAST MEDICAL HISTORY: Significant for: 1. Type 1 diabetes; currently on insulin pump. 2. Hypertension. 3. Peripheral vascular disease. 4. Coronary artery disease. 5. Dyslipidemia. 6. Spinal stenosis. 7. Depression. 8. Recurrent GI bleed with symptomatic anemia. 9. History of end-stage renal disease. PAST SURGICAL HISTORY: Significant for: 1. Femoral artery angioplasty with stents. 2. Right femoral popliteal bypass surgery. 3. Iliofemoral bypass graft. 4. Bilateral submandibular gland resection. 5. History of multiple colonoscopies and upper endoscopies. 6. AV fistula creation in right forearm. 7. Bilateral cataract surgery. FAMILY HISTORY: Negative for end-stage renal disease or any malignancies. PERSONAL AND SOCIAL HISTORY: Patient is and lives with his . He does not smoke or drink. ALLERGIES: Patient has multiple allergies including CHARLES inhibitor, Quinolones, nonsteroidals and Gabapentin. Other allergies are sulfa, Cyclobenzaprine, Hydrochlorothiazide and Cefazolin. MEDICATIONS: His home medications include: 1. Aspirin 81 mg daily. 2. Atorvastatin 80 mg daily. 3. Calcitriol 0.25 mcg three times a week. 4. Citalopram 40 mg daily. 5. Clonidine 0.1 mg b.i.d. 6. Plavix 75 mg daily. 7. Vitamin D 50,000 units once a week. 8. Ferrous Sulfate 325 mg daily. 9. Breo Ellipta inhaler one puff inhalation daily. 10.Humalog per insulin pump. 11.Labetalol 200 mg b.i.d. 12.Losartan 50 mg at bedtime. 13.Remeron 45 mg at bedtime. 14.Protonix 40 mg b.i.d. 15.Spironolactone 25 mg b.i.d. REVIEW OF SYSTEMS: Patient denies any fever or chills. He was just short of breath. He is slightly hard of hearing, but nose and throat are unremarkable. No history of recent fall or head trauma. Cardiovascular system is significant for shortness of breath, but no chest pain. He does have prior history of [place]. Respiratory system is negative for pleuritic type of chest pain or hemoptysis. GI system is significant for recurrent GI bleed due to AV malformation requiring transfusions. system is unremarkable. Musculoskeletal system is significant for back pain and degenerative arthritis. He has spinal stenosis. Neurological system is negative for seizures or stroke. Hematological system is negative for anticoagulation. He has required frequent transfusions due to GI blood loss. Skin is negative for rash or ulcers. PHYSICAL EXAMINATION: VITALS: Temperature 98.2 degrees Fahrenheit, heart rate 60 per minute, respiratory rate 18 per minute, blood pressure 132/64 mmHg, oxygen saturation 94% on 2 liters oxygen. HEENT: Head is atraumatic. Neck supple and JVD is about 8 cm above sternal angle. Bilateral neck scars due to submandibular gland resection are noted. There is no oral thrush or ulcers. HEART: Heart sounds are regular. LUNGS: Diminished breath sounds. ABDOMEN: Soft and nontender. Bowel sounds are normal. EXTREMITIES: Without any cyanosis or clubbing. Right forearm AV fistula is patent. NEUROLOGIC: He is awake, alert and at his baseline mentation. LABORATORY DATA: Today's labs show WBC count 3.4, hemoglobin 12.0, hematocrit 37, platelets 243,000. Sodium 138, potassium 3.8, CO2 28, BUN 29 and creatinine 5.86. Calcium 9.4 and magnesium 2.1. IMAGING STUDIES: Chest CT scan reviewed independently showed bilateral pulmonary vascular congestion and bilateral pleural effusions. PROBLEMS: 1. Shortness of breath: Most likely this is multifactorial and related to pleural effusions and congestive heart failure. We will urgently dialyze the patient this morning and try to remove about 3 liters of fluid. I have discussed with the hospitalist service for possible thoracentesis need. His regular dialysis is again tomorrow and we will try to optimize his volume status. 2. Bilateral pleural effusions: Patient has large pleural effusions, which have increased compared to his prior imaging. I will recommend a right-sided thoracentesis as he has larger pleural effusion on the right side compared to left. 3. Hypertension: Blood pressure was high earlier, probably related to volume overload. It is likely to improve after dialysis and would need to be monitored. 4. End-stage renal disease: Patient was dialyzed on 04 of October and will be scheduled for next dialysis on the . Other chronic medications should be continued. Thank you for involving me in the care of Mr. Norwood. I will follow him along with you.
[2020-10-06] VITALS (8 sets, daily range): BP systolic 135–184; BP diastolic 58–68
[2020-10-06 05:49] LABS: BASO # 0.1 10^3/uL (0.0-0.2); BASO % 1.2 % (0.0-1.0); EOS # 0.1 10^3/uL (0.0-0.5); EOS % 2.9 % (0.0-3.0); HEMATOCRIT 36.7 % (42.0-52.0); HEMOGLOBIN 12.3 g/dl (13.5-17.5); LYMPH % 24.9 % (24.0-44.0); MEAN CORPUSCULAR HEMOGLOBIN 34.4 pg (27.0-33.0); MEAN CORPUSCULAR HGB CONC 33.5 g/dl (32.0-36.5); MEAN CORPUSCULAR VOLUME 102.5 fl (80.0-96.0); MONO # 0.5 10^3/uL (0.0-0.8); MONO % 12.2 % (0.0-5.0); NEUTROPHILS # 2.4 10^3/uL (1.5-8.5); NEUTROPHILS % 58.1 % (36.0-66.0); PLATELET COUNT, AUTOMATED 237 10^3/uL (150-450); RED BLOOD COUNT 3.58 10^6/uL (4.30-6.10); WHITE BLOOD COUNT 4.1 10^3/uL (4.0-10.0)
[2020-10-06] MEDS: hydrALAZINE 20MG/ML 1ML VIAL (J0360 PER 20MG) IV SCH ×3 (05:59→12:29)
[2020-10-06 06:13] LABS: CALCIUM LEVEL 9.4 MG/DL (8.8-10.2); CREATININE FOR GFR 7.3 MG/DL (0.70-1.30); MAGNESIUM LEVEL 2.1 MG/DL (1.8-2.4); POTASSIUM SERUM 3.6 MEQ/L (3.5-5.1)
[2020-10-06] MEDS: HEPARIN SOD (PORCINE) 5000UNITS/ML 1ML VIAL/SYRINGE SQ SCH ×2 (06:25→17:39)
[2020-10-06] MEDS: ADVAIR HFA 230/21MCG INHALER INH SCH (07:18)
[2020-10-06] MEDS: FERROUS SULFATE 325MG TAB PO SCH (08:00)
[2020-10-06] MEDS: ASPIRIN 81 MG ENTERIC TAB PO SCH (08:00)
[2020-10-06] MEDS: CLOPIDOGREL 75 MG TAB PO SCH (08:00)
[2020-10-06] MEDS: cloNIDine 0.1MG TABLET PO SCH (08:00)
[2020-10-06] MEDS: CitaloPRAM (CeleXA) 20 MG TAB PO SCH (08:00)
[2020-10-06] MEDS: PANTOPRAZOLE 40MG TAB (PROTONIX) PO SCH (08:00)
[2020-10-06] MEDS: SPIRONOLACTONE 25 MG TAB PO SCH (08:00)
[2020-10-06] MEDS: LABETALOL 200 MG TAB PO SCH (08:01)
--- NOTE | 2020-10-06 10:56 | DS.PDOC ---
Discharge Summary General Date of Admission Oct 04, 2020 at 17:37 Date of Discharge 10/06/2020 Discharge Summary PROCEDURES PERFORMED DURING STAY: IR guided thoracentesis on 10/05/2020 ADMITTING DIAGNOSES / DISCHARGE DIAGNOSES: s/p Shortness of breath - likely 2/2 fluid overload and bilateral pleural effus ions - 2/2 ESRD on HD (TTS) HTN Urgency - likely 2/2 fluid overload IDDM1 on Insulin pump Peripheral vascular disease CAD Chronic anemia 2/2 chronic recurrent GI bleed due to AV malformations DLP Spinal stenosis Depression GERD DVT prophylaxis COMPLICATIONS/CHIEF COMPLAINT: Shortness of breath HISTORY OF PRESENT ILLNESS: Patient is a 70-year-old male who presented to the emergency room with complaints of short of breath. Patient reported that he was experiencing worsening shortness of breath that started this morning patient subsequently went for dialysis and required oxygen during the session. After that, he came to the emergency room for further evaluation. Patient denies any chest pain, palpitations or cough. Does report that it is a little labored to breathe. Patient reports that he does not experience any leg swelling, but does experience shortness breath when laying on his back.. He denies any recent fevers or chills. Patient was admitted to the hospitalist service for further evaluation and treatment and nephrology was called on consultation. HOSPITAL COURSE: s/p Shortness of breath - likely 2/2 fluid overload and bilateral pleural effusions - 2/2 ESRD on HD (TTS) - Patient reports that his breathing is doing significantly better compared to yesterday - Physical without any crackles noted on auscultation - Elevated BNP - Imaging noted above - s/p IR guided drainage of pleural fluid on 10/05; ~850 cc fluid removed - s/p Dialysis on 10/05; will be dialyzed again today - Will be discharged after dialysis - Will have outpatient follow-up with nephrology and primary care provider within the next 7 days HTN Urgency - likely 2/2 fluid overload - SBP better controlled - s/p Losartan PO and Hydralazine IV in the ER - c/w Spironolactone / Losartan / Labetalol / Clonidine - Will DC Hydralazine IV if BP remains elevated IDDM1 on Insulin pump - Complicated with neuropathy - c/w home insulin pump Peripheral vascular disease - s/p fem-pop bypass and femoral stent placement - c/w ASA, Plavix, Atorvastatin CAD - s/p self-reported AL - c/w ASA, Plavix, Atorvastatin Chronic anemia 2/2 chronic recurrent GI bleed due to AV malformations - c/w Ferrous sulfate DLP - c/w Atorvastatin Spinal stenosis - c/w home pain medications Depression - c/w Citalopram GERD - c/w Protonix DVT prophylaxis - c/w Heparin DISCHARGE MEDICATIONS: Please see below. ALLERGIES: Please see below. PHYSICAL EXAMINATION ON DISCHARGE: Vitals (See below) General: Sitting up in bed, appears to be comfortable, is awake, alert and oriented 3 HEENT: NC, AT CVS: +S1S2 Lungs: Fair air entry b/l, no appreciated rhonchi, wheezing, rales Abdomen: Soft, non-distended, nontender Extremities: NO evidence of edema, - Calf tenderness LABORATORY DATA: Please see below. IMAGING: CXR 10/04: Bibasilar parenchymal opacities or infiltrates again noted essentially unchanged. Fissural thickening versus platelike atelectasis right mid lung zone. Cardiomegaly. Vascular cephalization.. CT chest 10/04: 1. Increased bilateral pleural effusions. 2. Abnormal bilateral lower lung field opacities as described above. Com bination of infectious and subsegmental atelectatic changes should be clinically evaluated for. 3. Vertebral body abnormalities and other findings as described above. ACTIVITY: [As tolerated]. DISCHARGE PLAN: Follow-up with primary care provider within the next 7 days Follow-up with nephrology within the next 7 days Remain compliant with treatment plan and medications Return to the ER if you experience any problems DISPOSITION: Home DISCHARGE CONDITION: [Stable]. TIME SPENT ON DISCHARGE: 35 minutes. Vital Signs/I&Os Vital Signs Date Time Temp Pulse Resp B/P (MAP) Pulse Ox O2 Delivery O2 Flow Rate FiO2 10/06/20 09:40 170/66 (100) 10/06/20 08:01 63 10/06/20 08:00 97.6 18 95 Room Air 10/05/20 04:00 2.0 I&O- Last 24 Hours up to 6 AM 10/06/20 05:59 Intake Total 500 ml Output Total 2600 ml Balance -2100 ml Laboratory Data Labs 24H Laboratory Tests 2 10/05/20 12:11: Body Fluid pH 7.777, Body Fluid pH Source PLEURAL, Body Fluid WBC (Auto) 422H, Body Fluid RBC (Auto) < 2, Body Fluid Mononuclear Cells % Auto 98.8H, Fluid Polymorphonuclear Cell % Auto 1.2H, Body Fluid Glucose Source PLEURAL, Body Fluid Glucose 331, Body Fluid Protein Source PLEURAL, Body Fluid Total Protein 2.2, Body Fluid LDH Source PLEURAL, Body Fluid Lactate Dehydrogenase 78, Body Fluid Amylase Source PLEURAL, Body Fluid Amylase 33, Pleural Fluid Source PLEURAL, Pleural Fluid Color PALE YELLOW, Pleural Fluid Appearance CLEAR 10/05/20 13:20: Bedside Glucose (Misc Panel) 250H 10/05/20 16:44: Bedside Glucose (Misc Panel) 336H 10/05/20 21:09: Bedside Glucose (Misc Panel) 290H 10/06/20 05:28: Immature Granulocyte % (Auto) 0.7, Neutrophils (%) (Auto) 58.1, Lymphocytes (%) (Auto) 24.9, Monocytes (%) (Auto) 12.2H, Eosinophils (%) (Auto) 2.9, Basophils (%) (Auto) 1.2H, Neutrophils # (Auto) 2.4, Lymphocytes # (Auto) 1.0L, Monocytes # (Auto) 0.5, Eosinophils # (Auto) 0.1, Basophils # (Auto) 0.1, Nucleated Red Blood Cells % (auto) 0.0, Anion Gap 8, Glomerular Filtration Rate 8.0L, Calcium Level 9.4, Magnesium Level 2.1 CBC/BMP Laboratory Tests 10/06/20 05:28 FSBS Laboratory Tests Test 10/05/20 13:20 10/05/20 16:44 10/05/20 21:09 Range/Units Bedside Glucose (Misc Panel) 250 336 290 80-115 MG/DL Microbiology Microbiology 10/05/20 Fungal Smear, Received Pending 10/05/20 Fungal Culture, Received Pending 10/05/20 Gram Stain - Final, Resulted 10/05/20 Body Fluid Culture, Resulted Pending 10/04/20 Blood Culture - Preliminary, Resulted No growth after 24 hours . All specim... 10/04/20 Blood Culture - Preliminary, Resulted No growth after 24 hours . All specim... Discharge Medications Scheduled Aspirin (Aspirin EC) 81 Mg Tab, 81 MG PO DAILY, (Reported) Atorvastatin Calcium (Atorvastatin Calcium) 80 Mg Tab, 80 MG PO QPM, (Reported) 1600 Calcitriol (Calcitriol) 0.25 Mcg Capsule, 0.25 MCG PO 3XW, (Reported) SATURDAY, SATURDAY, AND SATURDAY AT DIALYSIS Citalopram Hydrobromide (Citalopram HBr) 40 Mg Tab, 40 MG PO DAILY, (Reported) Clonidine HCl (Clonidine HCl) 0.1 Mg Tablet, 0.1 MG PO BID, (Reported) Clopidogrel Bisulfate (Clopidogrel) 75 Mg Tab, 75 MG PO DAILY, (Reported) Ergocalciferol (Vitamin D2) (Vitamin D2) 50,000 Units Cap, 50,000 UNITS PO 1XWK, (Reported) SATURDAY Ferrous Sulfate (Ferrous Sulfate) 325 Mg Tablet.dr, 325 MG PO DAILY, (Reported) Fluticasone/Vilanterol (Breo Ellipta 100-25 Mcg INH) 1 Each Blst.w.dev, 1 PUFF INH DAILY, (Reported) HAS NOT STARTED YET Insulin Human Lispro (Humalog) 100 Unit/1 Ml Vial, 1 DOSE SC ASDIRECTED, (Reported) VIA INSULIN PUMP: 0000 - 0400 : 0.6 UNITS/HR 0400 - 2100 : 0.3 UNITS/HR 2100 - 0000 : 0.6 UNITS/HR CARB RATIO 12 CARBS PER UNIT Labetalol HCl (Labetalol HCl) 200 Mg Tablet, 200 MG PO BID, (Reported) Losartan Potassium (Losartan Potassium) 50 Mg Tablet, 50 MG PO QHS, (Reported) Mirtazapine (Remeron) 15 Mg Tablet, 45 MG PO QHS, (Reported) Pantoprazole Sodium (Pantoprazole Sodium) 40 Mg Tab, 40 MG PO BID, (Reported) Spironolactone (Spironolactone) 25 Mg Tab, 25 MG PO BID, (Reported) Scheduled PRN Albuterol Sulf (Albuterol Sulfate) 2.5 Mg/3 Ml Vial.neb, 2.5 MG INH Q4H PRN for SHORTNESS OF BREATH, (Reported) Hydrocodone/Acetaminophen (Hydrocodone-Acetamin 5-325 mg) 1 Each Tablet, 1 TAB PO Q6H PRN for PAIN, (Reported) Ipratropium/Albuterol Sulfate (Combivent Respimat 20-100 Mcg) 4 Gm Mist.inhal, 2 PUFF INH Q4H PRN for SOB/WHEEZING, (Reported) Allergies Coded Allergies: Quinolones (Verified Allergy, Mild, RASH, 6/10/19) CHARLES Inhibitors (Verified Adverse Reaction, Intermediate, ARF, 02/16/19) NSAIDS (Non-Steroidal Anti-Inflamma (Verified Adverse Reaction, Intermediate, KIDNEY DAMAGE, 02/16/19) celecoxib (Verified Adverse Reaction, Intermediate, KIDNEY DAMAGE, ) gabapentin (Verified Adverse Reaction, Intermediate, personality changes, 02/17/19) ibuprofen (Verified Adverse Reaction, Intermediate, KIDNEY DAMAGE, 02/16/19) lisinopril (Verified Adverse Reaction, Intermediate, RENAL FAILURE, 02/16/19) sulfamethoxazole (Verified Adverse Reaction, Intermediate, RENAL FAILURE, 02/16/19) trimethoprim (Verified Adverse Reaction, Intermediate, RENAL FAILURE, 02/16/19) cefazolin (Verified Adverse Reaction, Mild, DIZZINESS, 02/16/19) cyclobenzaprine (Verified Adverse Reaction, Mild, DIZZINESS, 02/16/19) hydrochlorothiazide (Verified Adverse Reaction, Mild, DIZZINESS, 02/16/19) triamterene (Verified Adverse Reaction, Mild, DIZZINESS, 02/16/19) MARY JO MAY MD Oct 06, 2020 10:56
[2020-10-06] MEDS ORDERED: CALCITRIOL 0.25 MCG CAP (S0169) PO SCH (16:00)
--- NOTE | 2020-10-06 20:01 | IPN ---
PROGRESS NOTE DATE: 10/06/2020 SUBJECTIVE: Mr. Norwood is seen this morning on his bedside. He is feeling much better today as his respiratory status has improved. He had a right-sided thoracentesis yesterday with 850 mL fluid removed. Prior to that, he had hemodialysis, ultrafiltration and 3 liters of fluid was removed. Patient denies any nausea, vomiting, dizziness or lightheadedness. He denies any chest pain, fever or chills. PHYSICAL EXAMINATION: VITALS: Temperature 97.6 degrees Fahrenheit, heart rate 60 per minute, respiratory rate 16 per minute, blood pressure 176/68 mmHg and oxygen saturation 96% on room air. HEENT: Head is atraumatic. NECK: Supple and without any JVD or thyroid enlargement at present HEART: Sounds are regular with systolic murmur grade 2/6. LUNGS: Sound much better today without any wheezing or rales. ABDOMEN: Soft and nontender. Bowel sounds are normal. EXTREMITIES: Without any cyanosis or clubbing. NEUROLOGIC: He is awake, alert and at his baseline mentation. LABORATORY DATA: Today's labs show WBC count 4.1, hemoglobin 12.3, hematocrit 36.7, platelets 237,000. Sodium 137, potassium 3.6, CO2 29, BUN 40 and creatinine 7.30. PROBLEMS: 1. Shortness of breath: It was multifactorial, related to bilateral pleural effusion with much larger one on the right than left and also volume overload. Patient had ultrafiltration done yesterday and in addition he had right-sided thoracentesis. We plan to dialyze him again today and will try to remove about 2 liters of fluid. His dry weight will need to be adjusted in dialysis. 2. End-stage renal disease: Patient is regularly dialyzed on Saturday, and Saturday schedule. Yesterday, he received only ultrafiltration and will get his regular hemodialysis this afternoon. 3. Hypertension: Blood pressure control is likely to improve as we are correcting his volume status. I would recommend to continue with current antihypertensive medications. DISPOSITION: From a renal standpoint, patient can be discharged to home after dialysis today if he remains stable.
== END 2020-10-06 17:55 | disposition home or self-care (01) | DRG 640 ==
LOC: M ED 13:52 → M ED INP 17:37 → M PCU 21:31
PROVIDERS: ADMIT Internal Medicine; ATTEND Internal Medicine
PROC: 5A1D70Z Performance of Urinary Filtration, Intermittent, Less than 6 Hours Per Day (ICD-10-PCS; 2020-10-05)
PROC: 0W993ZZ Drainage of Right Pleural Cavity, Percutaneous Approach (ICD-10-PCS; principal; 2020-10-05 16:00)
DX: E87.70 Fluid overload, unspecified (principal); N18.6 End stage renal disease; J90 Pleural effusion, not elsewhere classified; I16.0 Hypertensive urgency; E10.22 Type 1 diabetes mellitus with diabetic chronic kidney disease; E10.51 Type 1 diabetes mellitus with diabetic peripheral angiopathy without gangrene; E10.42 Type 1 diabetes mellitus with diabetic polyneuropathy; I25.10 Atherosclerotic heart disease of native coronary artery without angina pectoris; D50.0 Iron deficiency anemia secondary to blood loss (chronic); E78.5 Hyperlipidemia, unspecified; F32.9 Major depressive disorder, single episode, unspecified; Z66 Do not resuscitate; I25.2 Old myocardial infarction; Z99.2 Dependence on renal dialysis; Z95.820 Peripheral vascular angioplasty status with implants and grafts; Z98.41 Cataract extraction status, right eye; Z98.42 Cataract extraction status, left eye; Z87.891 Personal history of nicotine dependence; Z79.82 Long term (current) use of aspirin; Z79.02 Long term (current) use of antithrombotics/antiplatelets; Z79.4 Long term (current) use of insulin; Z79.899 Other long term (current) drug therapy; Z88.1 Allergy status to other antibiotic agents; Z88.2 Allergy status to sulfonamides; Z88.6 Allergy status to analgesic agent; Z88.8 Allergy status to other drugs, medicaments and biological substances

== ENCOUNTER → 2020-12-21 | Outpatient (CLI) | payer MEDICARE ==
[~2020-12-21] MED LIST changes: +ASPI-569 PO; -ASPI81TAEC PO; +BREO1INH INH; -GLUC4CHW19 PO; +SFHGLU4TA PO
--- NOTE | 2020-12-21 11:47 | REP ---
INDICATION: END STAGE RENAL DISEASE. COMPARISON: Multiple the latest 10/05/2020 TECHNIQUE: PA and lateral FINDINGS: The superior mediastinal structures are midline. The cardiac silhouette is unremarkable in size, shape, and position. Mild bibasilar opacities are again noted essentially unchanged from the prior exam to slightly increased. There is bilateral CP angle blunting which has developed. There is mild thickening of the fissures status quo. There is no significant change in the osseous structures. IMPRESSION: Bibasilar opacities suggesting chronic lung disease, however, correlate clinically to rule out the possibility of acute disease superimposed upon chronic change. Small bilateral pleural effusions cannot be ruled out. Other findings as described above. <Electronically signed by Russ Ashton > 12/21/20 [id number]
== END ==
LOC: M RAD 10:35
PROVIDERS: ATTEND Internal Medicine Nephrology
DX: N18.6 End stage renal disease (principal); R06.02 Shortness of breath; E87.79 Other fluid overload; R91.8 Other nonspecific abnormal finding of lung field